=== PATIENT | female | born 1995 | race Caucasian/White ===

== ENCOUNTER 2020-02-05 15:32 | Emergency (ER) | payer MEDICAID ==
[2020-02-05 17:00] LABS: Absolute Lymphocytes (CBC) 1.6 K/uL (0.7-4.9); Basophils % 0.6 % (0-1.3); Hematocrit 37.8 % (36.0-45.0); Lymphocytes % 27.1 % (15.3-44.8); MPV 10.1 fL (7.6-11.3); RBC Red Blood Cell Count 4.71 M/uL (3.86-4.86)
[2020-02-05 17:15] LABS: Urine Blood TRACE (NEG); Urine Glucose NEGATIVE (NEG); Urine Protein NEGATIVE (NEG); Urine Specific Gravity 1.015 (1.005-1.030); Urine pH 6.5 (5.0-7.0)
[2020-02-05 17:22] LABS: BUN Blood Urea Nitrogen 10 mg/dL (7-18); Bicarbonate 29 mmol/L (21-32); Glucose Level 109 mg/dL (74-106); Potassium 3.5 mmol/L (3.5-5.1); Sodium Level 140 mmol/L (136-145)
--- NOTE | 2020-02-05 17:25 | RAD REPORT ---
EXAM DESCRIPTION: US - Transvaginal OB - 02/05/2020 5:05 pm CLINICAL HISTORY: VAGINAL BLEEDING COMPARISON: No comparisons FINDINGS: Uterus is retroflexed. Endometrium is 4 mm in thickness with no mass, polyp are focal abno rmality seen. No myometrial mass. Uterus is 6.8 x 4.0 x 5.0 cm. No blood or fluid in the cul de sac. Both ovaries are identified and normal size. Normal blood flow in the stroma. No ovarian or adnexal a bnormalities. IMPRESSION: Unremarkable pelvic ultrasound.
[2020-02-05 17:31] LABS: HCG, Quantitative < 1 mIU/mL (1-3)
--- NOTE | 2020-02-05 17:40 | ER ---
Nurse's Notes [facility] Name: Gloria Modi Age: 24 yrs Sex: Female : 1995 Arrival Date: 02/05/2020 Time: 15:35 Bed 16 Private MD: Diagnosis: Abnormal uterine and vaginal bleeding, unspecified Presentation: 02/04 15:42 Chief complaint: Patient states: vaginal bleeding that started out as spotting is now ss heavier. Pt was told by her OB to come to ER as she has had a tubal ligation in the past. Pt believes she is approximately 6 weeks . Coronavirus screen: Client denies travel out of the [place] in the last 14 days. Ebola Screen: Patient denies exposure to infectious person. Patient denies travel to an Ebola-affected area in the 21 days before illness onset. Initial Sepsis Screen: Does the patient meet any 2 criteria? No. Patient's initial sepsis screen is negative. Does the patient have a suspected source of infection? No. Patient's initial sepsis screen is negative. Risk Assessment: Do you want to hurt yourself or someone else? Patient reports no desire to harm self or others. Onset of symptoms was February 03, 2020. 15:42 Method Of Arrival: Ambulatory ss 15:42 Acuity: NICO 3 ss GAS CHARGER: 16:10 7, Full Term 2, 4, Living 2, LMP 01/01/2020, Verified, EDC cp 10/07/2020, Gestational age from LMP: 5 weeks 0 days 16:25 LMP 12/25/2019 ca1 Historical: - Allergies: 15:45 Tylenol # 3; ss - Home Meds: 15:45 Carbamazepine Oral [Active]; hydroxyzine HCl 25 mg Oral tab [Active]; Fluoxetine Oral ss [Active]; - PMHx: 15:45 PTSD; seperation anxiety; Bipolar disorder; ss - Immunization history:: Adult Immunizations up to date. - Social history:: Smoking status: Patient reports the use of cigarette tobacco products, smokes one-half pack cigarettes per day. Screenin:50 Abuse screen: Denies threats or abuse. Denies injuries from another. Nutritional ca1 screening: No deficits noted. Tuberculosis screening: No symptoms or risk factors identified. Fall Risk IV access (20 points). Assessment: 15:50 General: Appears in no apparent distress. comfortable, Behavior is calm, cooperative, ca1 appropriate for age. Pain: Complains of pain in suprapubic area, right lower quadrant and left lower quadrant Pain radiates to low back area Pain currently is 3 out of 10 on a pain scale. Pain began 1 day ago. Is intermittent. Neuro: Level of Consciousness is awake, alert, obeys commands, Oriented to person, place, time, situation. Cardiovascular: Heart tones S1 S2 present Capillary refill < 3 seconds Patient's skin is warm and dry. Respiratory: Airway is patent Respiratory effort is even, unlabored, Respiratory pattern is regular, symmetrical, Breath sounds are clear bilaterally. GI: Abdomen is flat, non-distended, Bowel sounds present X 4 quads. Abd is soft and non tender X 4 quads. : Urine is clear, Reports cramping, lower quadrant(s) lower back vaginal bleeding that is bright red, light flow. EENT: No signs and/or symptoms were reported regarding the EENT system. Derm: Skin is intact, is healthy with good turgor, Skin is pink, warm \T\ dry. Musculoskeletal: Circulation, motion, and sensation intact. Capillary refill < 3 seconds. 17:19 Reassessment: Patient appears in no apparent distress at this time. Patient and/or ca1 family updated on plan of care and expected duration. Pain level reassessed. Patient is alert, oriented x 3, equal unlabored respirations, skin warm/dry/pink. 17:55 Reassessment: Patient appears in no apparent distress at this time. Patient is alert, ca1 oriented x 3, equal unlabored respirations, skin warm/dry/pink. Vital Signs: 15:54 BP 124 / 78; Pulse 81; Resp 16; Temp 97.6(TE); Pulse Ox 100% on R/A; Weight 44.45 kg; ss Height 5 ft. 0 in. (152.40 cm); Pain 0/10; 17:19 BP 114 / 69; Pulse 80; Resp 16 S; Pulse Ox 100% on R/A; ca1 17:55 BP 101 / 63; Pulse 76; Resp 16 S; Pulse Ox 100% on R/A; ca1 15:54 Body Mass Index 19.14 (44.45 kg, 152.40 cm) ss ED Course: 15:35 Patient arrived in ED. ds1 15:43 Triage completed. ss 15:45 Arm band placed on right wrist. ss 15:46 Alden Snider PA is PHCP. cp 15:46 Lyle Figueroa MD is Attending Physician. cp 15:48 tSormy Parmar, RN is Primary Nurse. ca1 15:50 Patient has correct armband on for positive identification. Placed in gown. Bed in low ca1 position. Call light in reach. Side rails up X 1. Pulse ox on. NIBP on. Warm blanket given. 16:19 Initial lab(s) drawn, by me, sent to lab. Inserted saline lock: 20 gauge in left ca1 antecubital area, using aseptic technique. Blood collected. 16:19 No provider procedures requiring assistance completed. ca1 17:05 US Transvaginal Ob In Process Unspecified. EDMS 17:55 IV discontinued, intact, bleeding controlled, No redness/swelling at site. Pressure ca1 dressing applied. Administered Medications: No medications were administered Outcome: 17:39 Discharge ordered by MD. cp 17:55 Discharged to home ambulatory. ca1 17:55 Condition: stable 17:55 Discharge instructions given to patient, Instructed on discharge instructions, follow up and referral plans. Demonstrated understanding of instructions, follow-up care. 17:56 Patient left the ED. ca1 Signatures: Dispatcher [employer] EDKY Kailey Shah ds1 Brigette Medina, RN RN Alden Snider PA PA cp Stormy Parmar, RN RN ca1
--- NOTE | 2020-02-05 17:40 | EDPHYS ---
Physician Documentation [facility] Name: Gloria Modi Age: 24 yrs Sex: Female : 1995 Arrival Date: 02/05/2020 Time: 15:35 Bed 16 Private MD: ED Physician Lyle Figueroa HPI: 02/04 16:00 This 24 yrs old Female presents to ER via Ambulatory with complaints of cp Vaginal Bleeding, + Preg <12wks. 16:00 The patient presents to the emergency department with vaginal bleeding, that is light, cp reports using 1 pads or tampons per day, positive test at home. The estimated gestational age is 6 weeks. Associated signs and symptoms: Pertinent negatives: abdominal pain, diarrhea, dysuria, fever, ruptured membranes, vomiting. 16:00 course: care: at a clinic, Leakage of Fluid: none appreciated. cp RN INTEGRITY: 16:10 7, Full Term 2, 4, Living 2, LMP 01/01/2020, Verified, EDC cp 10/07/2020, Gestational age from LMP: 5 weeks 0 days 16:25 LMP 12/25/2019 ca1 Historical: - Allergies: 15:45 Tylenol # 3; ss - Home Meds: 15:45 Carbamazepine Oral [Active]; hydroxyzine HCl 25 mg Oral tab [Active]; Fluoxetine Oral ss [Active]; - PMHx: 15:45 PTSD; seperation anxiety; Bipolar disorder; ss - Immunization history:: Adult Immunizations up to date. - Social history:: Smoking status: Patient reports the use of cigarette tobacco products, smokes one-half pack cigarettes per day. ROS: 16:05 Constitutional: Negative for fever. cp 16:05 Abdomen/GI: Negative for abdominal pain, nausea, vomiting, and diarrhea. cp 16:05 : Positive for vaginal bleeding, Negative for urinary symptoms, pelvic pain. 16:05 All other systems are negative. Exam: 16:12 Constitutional: The patient appears in no acute distress, alert, awake, comfortable, cp well developed, well nourished. 16:12 Head/Face: Normocephalic, atraumatic. cp 16:12 Eyes: Periorbital structures: appear normal, Conjunctiva: normal, no exudate, no injection, Sclera: no appreciated abnormality, Lids and lashes: appear normal, bilaterally. 16:12 ENT: External ear(s): are unremarkable, Nose: is normal, Posterior pharynx: Airway: no evidence of obstruction, patent. 16:12 Chest/axilla: Inspection: normal, Palpation: is normal, no crepitus, no tenderness. 16:12 Cardiovascular: Rate: normal, Rhythm: regular. 16:12 Respiratory: the patient does not display signs of respiratory distress, Respirations: normal, no use of accessory muscles, no retractions, labored breathing, is not present. 16:12 Abdomen/GI: Inspection: abdomen appears normal, Bowel sounds: active, all quadrants, Palpation: abdomen is soft and non-tender, in all quadrants. 16:12 Back: CVA tenderness, is absent. Vital Signs: 15:54 BP 124 / 78; Pulse 81; Resp 16; Temp 97.6(TE); Pulse Ox 100% on R/A; Weight 44.45 kg; ss Height 5 ft. 0 in. (152.40 cm); Pain 0/10; 17:19 BP 114 / 69; Pulse 80; Resp 16 S; Pulse Ox 100% on R/A; ca1 17:55 BP 101 / 63; Pulse 76; Resp 16 S; Pulse Ox 100% on R/A; ca1 15:54 Body Mass Index 19.14 (44.45 kg, 152.40 cm) ss MDM: 15:47 Patient medically screened. cp 16:00 Differential diagnosis: STD, threatened Ab, inevitable Ab, complete Ab, ectopic cp . 17:38 Data reviewed: vital signs, nurses notes, lab test result(s), radiologic studies, cp ultrasound. 17:38 Counseling: I had a detailed discussion with the patient and/or guardian regarding: the cp historical points, exam findings, and any diagnostic results supporting the discharge/admit diagnosis, lab results, radiology results, the need for outpatient follow up, an OB/Gyne specialist, to return to the emergency department if symptoms worsen or persist or if there are any questions or concerns that arise at home. ED course: VSS. Labs reviewed and US negative for IUP. Discussed findings with patient who reports multiple positive urine and a positive blood test for at clinic. Will discharge to home for continued monitoring. 02/04 15:53 Order name: Quantitative Hcg; Complete Time: 17:34 cp 02/04 17:34 Interpretation: Reviewed. 02/04 15:53 Order name: Abo/rh Typing; Complete Time: 17:30 02/04 17:30 Interpretation: Reviewed. 02/04 15:53 Order name: Basic Metabolic Panel; Complete Time: 17:34 cp 02/04 17:34 Interpretation: Normal except: GLUC 109; GFR 85. 02/04 15:53 Order name: CBC with Diff; Complete Time: 17:25 02/04 17:25 Interpretation: Normal except: MCH 26.0; RDW 15.4. 02/04 16:26 Order name: Urine Dipstick--Ancillary (enter results); Complete Time: 17:25 eb 02/04 17:34 Interpretation: Normal except: UBLD TRACE; UESTR TRACE. 02/04 16:26 Order name: Urine --Ancillary (enter results); Complete Time: 17:25 eb 02/04 15:53 Order name: Urine Test (obtain specimen); Complete Time: 16:26 02/04 15:53 Order name: IV Saline Lock; Complete Time: 16:26 02/04 15:53 Order name: Labs collected and sent; Complete Time: 16:26 02/04 15:53 Order name: NPO; Complete Time: 16:26 02/04 15:53 Order name: Urine Dipstick-Ancillary (obtain specimen); Complete Time: 16:26 02/04 15:53 Order name: US Transvaginal Ob; Complete Time: 17:30 02/04 17:39 Order name: Labs - recollect needed: ABO confirmation-small purple; Complete Time: 17:53sv Administered Medications: No medications were administered Disposition: 18:00 Chart complete. Disposition: 02/05/20 17:39 Discharged to Home. Impression: Abnormal uterine and vaginal bleeding, unspecified. - Condition is Stable. - Discharge Instructions: Abnormal Uterine Bleeding. - Medication Reconciliation Form, Thank You Letter, Antibiotic Education, Prescription Opioid Use form. - Follow up: Private Physician; When: 2 - 3 days; Reason: Recheck today's complaints. - Problem is new. - Symptoms have improved. Addendum: 02/07/2020 06:41 Co-signature as Attending Physician, Lyle Figueroa MD I agree with the assessment and k dr plan of care. Signatures: Dispatcher [employer] Maritza Betancourt RN RN sv Lyle Figueroa MD MD kdr Smirch, Shelby, RN RN Alden Spencer PA PA cp Acob, Cheryl RN RN ca1 Corrections: (The following items were deleted from the chart) 02/04 17:56 17:39 02/05/2020 17:39 Discharged to Home. Impression: Abnormal uterine and vaginal ca1 bleeding, unspecified. Condition is Stable. Forms are Medication Reconciliation Form, Thank You Letter, Antibiotic Education, Prescription Opioid Use. Follow up: Private Physician; When: 2 - 3 days; Reason: Recheck today's complaints. Problem is new. Symptoms have improved. cp
[2020-02-05 18:35] VITALS: TEMP 97.6; O2SAT 100
[2020-02-05 18:43] VITALS: BP 101/63
== END 2020-02-05 17:56 | disposition home or self-care (01) ==
LOC: ER 15:32
DX: N93.9 Abnormal uterine and vaginal bleeding, unspecified (principal); F31.9 Bipolar disorder, unspecified; F17.210 Nicotine dependence, cigarettes, uncomplicated; Z88.5 Allergy status to narcotic agent
CPT/HCPCS: 36415; 76817; 80048; 81003; 81025; 84702; 85025; 86900; 86901; 99284

== ENCOUNTER 2020-03-01 02:11 | Emergency (ER) | payer MEDICAID ==
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
--- OUTSIDE RECORDS SUMMARY | 2020-03-01 02:14 | XMS REPORT | Clinical Summary ---
:1995 Author Organization [facility] Address [address] [place] [id number] Care Team Providers Name Role Phone Asked, No Pcp Primary Care Provider Unavailable Allergies No Known Active Allergies Medications Not on file Active Problems Not on file Social History Tobacco Use Types Packs/Day Years Used Date Former Smoker Alcohol Use Drinks/Week oz/Week Comments No Sex Assigned at Date Recorded Not on file Last Filed Vital Signs Not on file Plan of Treatment Health Maintenance Due Date Last Done Comments CHLAMYDIA SCREENING 2013 CERVICAL CANCER SCREENING 2018 INFLUENZA VACCINE 11/14/2019 Results Not on fileafter 03/01/2019 Insurance Payer Benefit Plan / Subscriber ID Effective Dates Phone Addre ss Type Group [id number] [facility] [id number] 2016-Present HMO CHOICE [facility] MEDICAID MEDICAID [id number] 2016-Present Med icaid Advance Directives For more information, please contact: [phone] Type Date Recorded Patient Base Ply Hand Explanati on Advance Directives, Living Will and 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
--- OUTSIDE RECORDS SUMMARY | 2020-03-01 02:17 | XMS REPORT | Continuity of Care Document ---
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 [#/volume] 0.1 K/uL 0.0-0.03 H in Blood (test code = 92368-0) lymphocyte% (test code = 30.9 % 10.0-50.0 lymphocyte%) mono % (test code = mono %) 7.2 % 3.6-12.0 eos % (test code = eos %) 0.3 % 0.0-5.4 Basophils/100 leukocytes in 0.2 % 0.1-1.2 Unspecified specimen (test code = 81455-9) Neutrophils.band form [#/volume] 5.77 K/uL 1.56-6.13 in Blood (test code = 16037-2) Lymphocytes [#/volume] in 2.9 K/uL 1.18-3.74 Unspecified specimen by Automated count (test code = 91386-1) mono # (test code = mono #) 0.68 K/uL 0.24-0.86 eos # (test code = eos #) 0.03 K/uL 0.04-0.36 L basophil # (test code = basophil 0.02 K/uL 0.01-0.08 #) NRBC% (test code = NRBC%) 0 /100 WBC 0-0.2 NRBC# (test code = NRBC#) 0 K/uL [facility] Ab [Presence] in Serum by [id number] 04:53:00 Test Item Value Reference Range Interpretation Comments Reagin Ab [Presence] in Serum by nonreactive nonreactive RPR (test code = 73051-7) [facility] [Presence] in Serum 2019-04-30 04:53:00 Test Item Value Reference Range Interpretation Comments .hepatitis B surface antigen (test negative negative code = .hepatitis B surface antigen) [facility] W Auto Differential panel - [id number] 04:53:00 Test Item Value Reference Range Interpretation Comments white blood count (test code = 9.5 K/uL 4.0-11.5 white blood count) red blood count (test code = red 3.83 M/uL 3.80-5.20 blood count) hemoglobin (test code = 9.7 g/dL 10.5-15.7 L hemoglobin) hematocrit (test code = 31.4 % 34.0-50.0 L hematocrit) Erythrocyte mean corpuscular 82.0 fL 86-100 L volume [Entitic volume] (test code = 10242-0) mean corpuscular hemoglobin (test 25.3 pg 26.2-33.4 L code = mean corpuscular hemoglobin) mean corpuscular HGB conc (test 30.9 g/dL 30-34 code = mean corpuscular HGB conc) red cell distribution width (test 13.6 % 12.0-15.5 code = red cell distribution width) platelet count (test code = 262 K/uL 165-450 platelet count) mean platelet volume (test code = 10.3 fL 9.4-12.6 mean platelet volume) Neutrophils.segmented/100 60.8 % 44.4-80.1 leukocytes in Blood (test code = 88273-3) Granulocytes Immature [#/volume] 0.1 K/uL 0.0-0.03 H in Blood (test code = 85785-5) lymphocyte% (test code = 30.9 % 10.0-50.0 lymphocyte%) mono % (test code = mono %) 7.2 % 3.6-12.0 eos % (test code = eos %) 0.3 % 0.0-5.4 Basophils/100 leukocytes in 0.2 % 0.1-1.2 Unspecified specimen (test code = 47505-0) Neutrophils.band form [#/volume] 5.77 K/uL 1.56-6.13 in Blood (test code = 75495-3) Lymphocytes [#/volume] in 2.9 K/uL 1.18-3.74 Unspecified specimen by Automated count (test code = 21437-2) mono # (test code = mono #) 0.68 K/uL 0.24-0.86 eos # (test code = eos #) 0.03 K/uL 0.04-0.36 L basophil # (test code = basophil 0.02 K/uL 0.01-0.08 #) NRBC% (test code = NRBC%) 0 /100 WBC 0-0.2 NRBC# (test code = NRBC#) 0 K/uL [facility] Serum by [id number] 04:53:00 Test Item Value Reference Range Interpretation Comments Reagin Ab [Presence] in Serum by nonreactive nonreactive RPR (test code = 45116-3) [facility] surface Ag [Presence] in Serum 2019-04-30 04:53:00 Test Item Value Reference Range Interpretation Comments .hepatitis B surface antigen (test negative negative code = .hepatitis B surface antigen) [facility] macro (dipstick) panel - [id number] 10:17:40 Test Item Value Reference Range Interpretation Comments Leukocytes (test code = Leukocytes) Trace Nitrite (test code = Nitrite) negative Urobilinogen (test code = .2 Urobilinogen) Protein (test code = Protein) Trace pH (test code = pH) 6.5 Blood (test code = Blood) Negative Specific [place] (test code = 1.015 Specific [place]) Ketone (test code = Ketone) Negative Bilirubin (test code = Bilirubin) Negative Glucose (test code = Glucose) Negative Appearance (test code = Appearance) Clear Color (test code = Color) Yellow [facility] (dipstick) panel - [id number] 10:17:40 Test Item Value Reference Range Interpretation Comments Leukocytes (test code = Leukocytes) Trace Nitrite (test code = Nitrite) negative Urobilinogen (test code = .2 Urobilinogen) Protein (test code = Protein) Trace pH (test code = pH) 6.5 Blood (test code = Blood) Negative Specific [place] (test code = 1.015 Specific [place]) Ketone (test code = Ketone) Negative Bilirubin (test code = Bilirubin) Negative Glucose (test code = Glucose) Negative Appearance (test code = Appearance) Clear Color (test code = Color) Yellow [facility] (dipstick) panel - [id number] 10:17:40 Test Item Value Reference Range Interpretation Comments Leukocytes (test code = Leukocytes) Trace Nitrite (test code = Nitrite) negative Urobilinogen (test code = .2 Urobilinogen) Protein (test code = Protein) Trace pH (test code = pH) 6.5 Blood (test code = Blood) Negative Specific [place] (test code = 1.015 Specific [place]) Ketone (test code = Ketone) Negative Bilirubin (test code = Bilirubin) Negative Glucose (test code = Glucose) Negative Appearance (test code = Appearance) Clear Color (test code = Color) Yellow [facility] Biophysical profile panel [id number] 10:06:43 Test Item Value Reference Range Interpretation Comments Amniotic Fluid Index (test code = 2 (14.5) Amniotic Fluid Index) Tone (test code = Tone) 2 Breathing (test code = 2 Breathing) Movement (test code = 2 Movement) Non-Stress Test (test code = 2 Non-Stress Test) [facility] Biophysical profile panel [id number] 10:06:43 Test Item Value Reference Range Interpretation Comments Amniotic Fluid Index (test code = 2 (14.5) Amniotic Fluid Index) Tone (test code = Tone) 2 Breathing (test code = 2 Breathing) Movement (test code = 2 Movement) Non-Stress Test (test code = 2 Non-Stress Test) [facility] Biophysical profile panel [id number] 10:06:43 Test Item Value Reference Range Interpretation Comments Amniotic Fluid Index (test code = 2 (14.5) Amniotic Fluid Index) Tone (test code = Tone) 2 Breathing (test code = 2 Breathing) Movement (test code = 2 Movement) Non-Stress Test (test code = 2 Non-Stress Test) [facility] - [id number] 11:37:00 Test Item Value Reference Range Interpretation Comments Leukocytes (test code = Leukocytes) Large Nitrite (test code = Nitrite) negative Urobilinogen (test code = 1 Urobilinogen) Protein (test code = Protein) Trace pH (test code = pH) 8.5 Blood (test code = Blood) Negative Specific [place] (test code = 1.020 Specific [place]) Ketone (test code = Ketone) Negative Bilirubin (test code = Bilirubin) Negative Glucose (test code = Glucose) Negative Appearance (test code = Appearance) Clear Color (test code = Color) Yellow [facility] (dipstick) panel - [id number] 11:37:00 Test Item Value Reference Range Interpretation Comments Leukocytes (test code = Leukocytes) Large Nitrite (test code = Nitrite) negative Urobilinogen (test code = 1 Urobilinogen) Protein (test code = Protein) Trace pH (test code = pH) 8.5 Blood (test code = Blood) Negative Specific [place] (test code = 1.020 Specific [place]) Ketone (test code = Ketone) Negative Bilirubin (test code = Bilirubin) Negative Glucose (test code = Glucose) Negative Appearance (test code = Appearance) Clear Color (test code = Color) Yellow [facility]dipstick) panel - [id number] 11:37:00 Test Item Value Reference Range Interpretation Comments Leukocytes (test code = Leukocytes) Large Nitrite (test code = Nitrite) negative Urobilinogen (test code = 1 Urobilinogen) Protein (test code = Protein) Trace pH (test code = pH) 8.5 Blood (test code = Blood) Negative Specific [place] (test code = 1.020 Specific [place]) Ketone (test code = Ketone) Negative Bilirubin (test code = Bilirubin) Negative Glucose (test code = Glucose) Negative Appearance (test code = Appearance) Clear Color (test code = Color) Yellow [facility] (dipstick) panel - [id number] 11:37:00 Test Item Value Reference Range Interpretation Comments Leukocytes (test code = Leukocytes) Large Nitrite (test code = Nitrite) negative Urobilinogen (test code = 1 Urobilinogen) Protein (test code = Protein) Trace pH (test code = pH) 8.5 Blood (test code = Blood) Negative Specific [place] (test code = 1.020 Specific [place]) Ketone (test code = Ketone) Negative Bilirubin (test code = Bilirubin) Negative Glucose (test code = Glucose) Negative Appearance (test code = Appearance) Clear Color (test code = Color) Yellow [facility] (dipstick) panel - [id number] 11:37:00 Test Item Value Reference Range Interpretation Comments Leukocytes (test code = Leukocytes) Large Nitrite (test code = Nitrite) negative Urobilinogen (test code = 1 Urobilinogen) Protein (test code = Protein) Trace pH (test code = pH) 8.5 Blood (test code = Blood) Negative Specific [place] (test code = 1.020 Specific [place]) Ketone (test code = Ketone) Negative Bilirubin (test code = Bilirubin) Negative Glucose (test code = Glucose) Negative Appearance (test code = Appearance) Clear Color (test code = Color) Yellow [facility] Biophysical profile panel [id number] 11:06:57 Test Item Value Reference Range Interpretation Comments Amniotic Fluid Index (test code = 2 (14.6) Amniotic Fluid Index) Tone (test code = Tone) 2 Breathing (test code = 2 Breathing) Movement (test code = 2 Movement) Non-Stress Test (test code = 2 Non-Stress Test) [facility] Biophysical profile panel [id number] 11:06:57 Test Item Value Reference Range Interpretation Comments Amniotic Fluid Index (test code = 2 (14.6) Amniotic Fluid Index) Tone (test code = Tone) 2 Breathing (test code = 2 Breathing) Movement (test code = 2 Movement) Non-Stress Test (test code = 2 Non-Stress Test) [facility] Biophysical profile panel [id number] 11:06:57 Test Item Value Reference Range Interpretation Comments Amniotic Fluid Index (test code = 2 (14.6) Amniotic Fluid Index) Tone (test code = Tone) 2 Breathing (test code = 2 Breathing) Movement (test code = 2 Movement) Non-Stress Test (test code = 2 Non-Stress Test) [facility] panel [id number] 11:06:57 Test Item Value Reference Range Interpretation Comments Amniotic Fluid Index (test code = 2 (14.6) Amniotic Fluid Index) Tone (test code = Tone) 2 Breathing (test code = 2 Breathing) Movement (test code = 2 Movement) Non-Stress Test (test code = 2 Non-Stress Test) [facility] Biophysical profile panel [id number] 11:06:57 Test Item Value Reference Range Interpretation Comments Amniotic Fluid Index (test code = 2 (14.6) Amniotic Fluid Index) Tone (test code = Tone) 2 Breathing (test code = 2 Breathing) Movement (test code = 2 Movement) Non-Stress Test (test code = 2 Non-Stress Test) [facility]dipstick) panel - [id number] 15:44:30 Test Item Value Reference Range Interpretation Comments Leukocytes (test code = Small Leukocytes) Nitrite (test code = Nitrite) negative Urobilinogen (test code = 2 Urobilinogen) Protein (test code = Protein) 30 pH (test code = pH) 8.0 Blood (test code = Blood) Negative Specific [place] (test code = 1.020 Specific [place]) Ketone (test code = Ketone) Negative Bilirubin (test code = Bilirubin) Small Glucose (test code = Glucose) Negative Appearance (test code = Clear Appearance) Color (test code = Color) Dark Yellow [facility]dipstick) panel - [id number] 15:44:30 Test Item Value Reference Range Interpretation Comments Leukocytes (test code = Small Leukocytes) Nitrite (test code = Nitrite) negative Urobilinogen (test code = 2 Urobilinogen) Protein (test code = Protein) 30 pH (test code = pH) 8.0 Blood (test code = Blood) Negative Specific [place] (test code = 1.020 Specific [place]) Ketone (test code = Ketone) Negative Bilirubin (test code = Bilirubin) Small Glucose (test code = Glucose) Negative Appearance (test code = Clear Appearance) Color (test code = Color) Dark Yellow [facility] (dipstick) panel - [id number] 15:44:30 Test Item Value Reference Range Interpretation Comments Leukocytes (test code = Small Leukocytes) Nitrite (test code = Nitrite) negative Urobilinogen (test code = 2 Urobilinogen) Protein (test code = Protein) 30 pH (test code = pH) 8.0 Blood (test code = Blood) Negative Specific [place] (test code = 1.020 Specific [place]) Ketone (test code = Ketone) Negative Bilirubin (test code = Bilirubin) Small Glucose (test code = Glucose) Negative Appearance (test code = Clear Appearance) Color (test code = Color) Dark Yellow [facility] (dipstick) panel - [id number] 15:44:30 Test Item Value Reference Range Interpretation Comments Leukocytes (test code = Small Leukocytes) Nitrite (test code = Nitrite) negative Urobilinogen (test code = 2 Urobilinogen) Protein (test code = Protein) 30 pH (test code = pH) 8.0 Blood (test code = Blood) Negative Specific [place] (test code = 1.020 Specific [place]) Ketone (test code = Ketone) Negative Bilirubin (test code = Bilirubin) Small Glucose (test code = Glucose) Negative Appearance (test code = Clear Appearance) Color (test code = Color) Dark Yellow [facility] (dipstick) panel - [id number] 15:44:30 Test Item Value Reference Range Interpretation Comments Leukocytes (test code = Small Leukocytes) Nitrite (test code = Nitrite) negative Urobilinogen (test code = 2 Urobilinogen) Protein (test code = Protein) 30 pH (test code = pH) 8.0 Blood (test code = Blood) Negative Specific [place] (test code = 1.020 Specific [place]) Ketone (test code = Ketone) Negative Bilirubin (test code = Bilirubin) Small Glucose (test code = Glucose) Negative Appearance (test code = Clear Appearance) Color (test code = Color) Dark Yellow [facility]dipstick) panel - [id number] 15:44:30 Test Item Value Reference Range Interpretation Comments Leukocytes (test code = Small Leukocytes) Nitrite (test code = Nitrite) negative Urobilinogen (test code = 2 Urobilinogen) Protein (test code = Protein) 30 pH (test code = pH) 8.0 Blood (test code = Blood) Negative Specific [place] (test code = 1.020 Specific [place]) Ketone (test code = Ketone) Negative Bilirubin (test code = Bilirubin) Small Glucose (test code = Glucose) Negative Appearance (test code = Clear Appearance) Color (test code = Color) Dark Yellow [facility] Biophysical profile panel [id number] 15:38:02 Test Item Value Reference Range Interpretation Comments Amniotic Fluid Index (test code = 2 (15.5) Amniotic Fluid Index) Tone (test code = Tone) 2 Breathing (test code = 2 Breathing) Movement (test code = 2 Movement) Non-Stress Test (test code = 2 Non-Stress Test) [facility] Biophysical profile panel [id number] 15:38:02 Test Item Value Reference Range Interpretation Comments Amniotic Fluid Index (test code = 2 (15.5) Amniotic Fluid Index) Tone (test code = Tone) 2 Breathing (test code = 2 Breathing) Movement (test code = 2 Movement) Non-Stress Test (test code = 2 Non-Stress Test) [facility] Biophysical profile panel [id number] 15:38:02 Test Item Value Reference Range Interpretation Comments Amniotic Fluid Index (test code = 2 (15.5) Amniotic Fluid Index) Tone (test code = Tone) 2 Breathing (test code = 2 Breathing) Movement (test code = 2 Movement) Non-Stress Test (test code = 2 Non-Stress Test) [facility] Biophysical profile panel [id number] 15:38:02 Test Item Value Reference Range Interpretation Comments Amniotic Fluid Index (test code = 2 (15.5) Amniotic Fluid Index) Tone (test code = Tone) 2 Breathing (test code = 2 Breathing) Movement (test code = 2 Movement) Non-Stress Test (test code = 2 Non-Stress Test) [facility] Biophysical profile panel [id number] 15:38:02 Test Item Value Reference Range Interpretation Comments Amniotic Fluid Index (test code = 2 (15.5) Amniotic Fluid Index) Tone (test code = Tone) 2 Breathing (test code = 2 Breathing) Movement (test code = 2 Movement) Non-Stress Test (test code = 2 Non-Stress Test) [facility] Biophysical profile panel [id number] 15:38:02 Test Item Value Reference Range Interpretation Comments Amniotic Fluid Index (test code = 2 (15.5) Amniotic Fluid Index) Tone (test code = Tone) 2 Breathing (test code = 2 Breathing) Movement (test code = 2 Movement) Non-Stress Test (test code = 2 Non-Stress Test) [facility] Biophysical profile panel [id number] 09:23:00 Test Item Value Reference Range Interpretation Comments Amniotic Fluid Index (test code = 2 (15.4) Amniotic Fluid Index) Tone (test code = Tone) 2 Breathing (test code = 2 Breathing) Movement (test code = 2 Movement) [facility] Biophysical profile panel [id number] 09:23:00 Test Item Value Reference Range Interpretation Comments Amniotic Fluid Index (test code = 2 (15.4) Amniotic Fluid Index) Tone (test code = Tone) 2 Breathing (test code = 2 Breathing) Movement (test code = 2 Movement) [facility] Biophysical profile panel [id number] 09:23:00 Test Item Value Reference Range Interpretation Comments Amniotic Fluid Index (test code = 2 (15.4) Amniotic Fluid Index) Tone (test code = Tone) 2 Breathing (test code = 2 Breathing) Movement (test code = 2 Movement) [facility] Biophysical profile panel [id number] 09:23:00 Test Item Value Reference Range Interpretation Comments Amniotic Fluid Index (test code = 2 (15.4) Amniotic Fluid Index) Tone (test code = Tone) 2 Breathing (test code = 2 Breathing) Movement (test code = 2 Movement) [facility] Biophysical profile panel [id number] 11:41:00 Test Item Value Reference Range Interpretation Comments Amniotic Fluid Index (test code = 2 (13.3) Amniotic Fluid Index) Tone (test code = Tone) 2 Breathing (test code = 2 Breathing) Movement (test code = 2 Movement) [facility] Biophysical profile panel [id number] 11:41:00 Test Item Value Reference Range Interpretation Comments Amniotic Fluid Index (test code = 2 (13.3) Amniotic Fluid Index) Tone (test code = Tone) 2 Breathing (test code = 2 Breathing) Movement (test code = 2 Movement) [facility] Biophysical profile panel [id number] 11:41:00 Test Item Value Reference Range Interpretation Comments Amniotic Fluid Index (test code = 2 (13.3) Amniotic Fluid Index) Tone (test code = Tone) 2 Breathing (test code = 2 Breathing) Movement (test code = 2 Movement) [facility] Biophysical profile panel [id number] 11:41:00 Test Item Value Reference Range Interpretation Comments Amniotic Fluid Index (test code = 2 (13.3) Amniotic Fluid Index) Tone (test code = Tone) 2 Breathing (test code = 2 Breathing) Movement (test code = 2 Movement) [facility] Biophysical [id number] 11:59:00 Test Item Value Reference Range Interpretation Comments Amniotic Fluid Index (test code = 2 (12.2) Amniotic Fluid Index) Tone (test code = Tone) 2 Breathing (test code = 2 Breathing) Movement (test code = 2 Movement) [facility] Biophysical profile panel [id number] 11:59:00 Test Item Value Reference Range Interpretation Comments Amniotic Fluid Index (test code = 2 (12.2) Amniotic Fluid Index) Tone (test code = Tone) 2 Breathing (test code = 2 Breathing) Movement (test code = 2 Movement) [facility] Biophysical profile panel [id number] 11:59:00 Test Item Value Reference Range Interpretation Comments Amniotic Fluid Index (test code = 2 (12.2) Amniotic Fluid Index) Tone (test code = Tone) 2 Breathing (test code = 2 Breathing) Movement (test code = 2 Movement) [facility] Biophysical profile panel [id number] 11:59:00 Test Item Value Reference Range Interpretation Comments Amniotic Fluid Index (test code = 2 (12.2) Amniotic Fluid Index) Tone (test code = Tone) 2 Breathing (test code = 2 Breathing) Movement (test code = 2 Movement) [facility] panel [id number] 11:59:00 Test Item Value Reference Range Interpretation Comments Amniotic Fluid Index (test code = 2 (12.2) Amniotic Fluid Index) Tone (test code = Tone) 2 Breathing (test code = 2 Breathing) Movement (test code = 2 Movement) [facility] Group[facility] identified in Urine by [id number] 10:18:00 Test Item Value Reference Range Interpretation Comments Bacteria identified in no growth after 2 Urine by Culture (test days code = 630-4) [facility] identified in Urine by [id number] 10:18:00 Test Item Value Reference Range Interpretation Comments Bacteria identified in no growth after 2 Urine by Culture (test days code = 630-4) [facility] identified in Urine by [id number] 10:18:00 Test Item Value Reference Range Interpretation Comments Bacteria identified in no growth after 2 Urine by Culture (test days code = 630-4) [facility] identified in Urine by [id number] 10:18:00 Test Item Value Reference Range Interpretation Comments Bacteria identified in no growth after 2 Urine by Culture (test days code = 630-4) [facility] GroupGlucose [Mass/volume] in Serum or Plasma --1 hour post dose [id number] 12:27:00 Test Item Value Reference Range Interpretation Comments Results (test code = Results) 152-Fail [facility] GroupGlucose [Mass/volume] in Serum or Plasma --1 hour post dose [id number] 12:27:00 Test Item Value Reference Range Interpretation Comments Results (test code = Results) 152-Fail [facility] GroupGlucose [Mass/volume] in Serum or Plasma --1 hour post dose [id number] 12:27:00 Test Item Value Reference Range Interpretation Comments Results (test code = Results) 152-Fail [facility] GroupGlucose [Mass/volume] in Serum or Plasma --1 hour post dose [id number] 12:27:00 Test Item Value Reference Range Interpretation Comments Results (test code = Results) 152-Fail [facility] GroupGlucose [Mass/volume] in Serum or Plasma --1 hour post dose [id number] 12:27:00 Test Item Value Reference Range Interpretation Comments Results (test code = Results) 152-[facility] W Auto Differential panel - [id number] 11:08:00 Test Item Value Reference Range Interpretation Comments white blood count (test code = 14.1 K/uL 4.0-11.5 H white blood count) red blood count (test code = red 4.04 M/uL 3.80-5.20 blood count) hemoglobin (test code = 11.1 g/dL 10.5-15.7 hemoglobin) hematocrit (test code = 35.1 % 34.0-50.0 hematocrit) Erythrocyte mean corpuscular 86.9 fL 86-100 volume [Entitic volume] (test code = 90945-2) mean corpuscular hemoglobin (test 27.5 pg 26.2-33.4 code = mean corpuscular hemoglobin) mean corpuscular HGB conc (test 31.6 g/dL 30-34 code = mean corpuscular HGB conc) red cell distribution width (test 13.6 % 12.0-15.5 code = red cell distribution width) platelet count (test code = 256 K/uL 165-450 platelet count) mean platelet volume (test code = 10.2 fL 9.4-12.6 mean platelet volume) Neutrophils.segmented/100 84.5 % 44.4-80.1 H leukocytes in Blood (test code = 55082-8) Granulocytes Immature [#/volume] 0.1 K/uL 0.0-0.03 H in Blood (test code = 64104-7) lymphocyte% (test code = 10.7 % 10.0-50.0 lymphocyte%) mono % (test code = mono %) 4.0 % 3.6-12.0 eos % (test code = eos %) 0.1 % 0.0-5.4 Basophils/100 leukocytes in 0.1 % 0.1-1.2 Unspecified specimen (test code = 09560-9) Neutrophils.band form [#/volume] 11.91 K/uL 1.56-6.13 H in Blood (test code = 26509-9) Lymphocytes [#/volume] in 1.5 K/uL 1.18-3.74 Unspecified specimen by Automated count (test code = 61349-5) mono # (test code = mono #) 0.56 K/uL 0.24-0.86 eos # (test code = eos #) 0.01 K/uL 0.04-0.36 L basophil # (test code = basophil 0.02 K/uL 0.01-0.08 #) NRBC% (test code = NRBC%) 0 /100 WBC 0-0.2 NRBC# (test code = NRBC#) 0 K/uL [facility], [id number] 11:08:00 NeutrophilsBandLymphocyteMonocytePlatelet EstimateMataUMMC Holmes CountyBlood group antibody screen [Presence] in Serum or [id number] 11:08:00 Test Item Value Reference Range Interpretation Comments Blood group antibody screen negative [Presence] in Serum or Plasma (test code = 890-4) [facility] Differential panel - [id number] 11:08:00 Test Item Value Reference Range Interpretation Comments white blood count (test code = 14.1 K/uL 4.0-11.5 H white blood count) red blood count (test code = red 4.04 M/uL 3.80-5.20 blood count) hemoglobin (test code = 11.1 g/dL 10.5-15.7 hemoglobin) hematocrit (test code = 35.1 % 34.0-50.0 hematocrit) Erythrocyte mean corpuscular 86.9 fL 86-100 volume [Entitic volume] (test code = 60909-5) mean corpuscular hemoglobin (test 27.5 pg 26.2-33.4 code = mean corpuscular hemoglobin) mean corpuscular HGB conc (test 31.6 g/dL 30-34 code = mean corpuscular HGB conc) red cell distribution width (test 13.6 % 12.0-15.5 code = red cell distribution width) platelet count (test code = 256 K/uL 165-450 platelet count) mean platelet volume (test code = 10.2 fL 9.4-12.6 mean platelet volume) Neutrophils.segmented/100 84.5 % 44.4-80.1 H leukocytes in Blood (test code = 87452-9) Granulocytes Immature [#/volume] 0.1 K/uL 0.0-0.03 H in Blood (test code = 29708-7) lymphocyte% (test code = 10.7 % 10.0-50.0 lymphocyte%) mono % (test code = mono %) 4.0 % 3.6-12.0 eos % (test code = eos %) 0.1 % 0.0-5.4 Basophils/100 leukocytes in 0.1 % 0.1-1.2 Unspecified specimen (test code = 96704-9) Neutrophils.band form [#/volume] 11.91 K/uL 1.56-6.13 H in Blood (test code = 18116-9) Lymphocytes [#/volume] in 1.5 K/uL 1.18-3.74 Unspecified specimen by Automated count (test code = 31444-8) mono # (test code = mono #) 0.56 K/uL 0.24-0.86 eos # (test code = eos #) 0.01 K/uL 0.04-0.36 L basophil # (test code = basophil 0.02 K/uL 0.01-0.08 #) NRBC% (test code = NRBC%) 0 /100 WBC 0-0.2 NRBC# (test code = NRBC#) 0 K/uL [facility]different[facility], [id number] 11:08:00 NeutrophilsBandLymphocyteMonocytePlatelet EstimateMataUMMC Holmes CountyBlood group antibody screen [Presence] in Serum or [id number] 11:08:00 Test Item Value Reference Range Interpretation Comments Blood group antibody screen negative [Presence] in Serum or Plasma (test code = 890-4) [facility] GroupHIV [facility]+2 Ab [Presence] in [id number] 11:08:00HIV P24 AgHIV-1/2 AbMaRichland Hospital GroupReagin Ab [Presence] in Serum by RPR 2019-03-09 11:08:00 Test Item Value Reference Range Interpretation Comments Reagin Ab [Presence] in Serum by nonreactive nonreactive RPR (test code = 40906-7) [facility] W Auto Differential panel - [id number] 11:08:00 Test Item Value Reference Range Interpretation Comments white blood count (test code = 14.1 K/uL 4.0-11.5 H white blood count) red blood count (test code = red 4.04 M/uL 3.80-5.20 blood count) hemoglobin (test code = 11.1 g/dL 10.5-15.7 hemoglobin) hematocrit (test code = 35.1 % 34.0-50.0 hematocrit) Erythrocyte mean corpuscular 86.9 fL 86-100 volume [Entitic volume] (test code = 29568-4) mean corpuscular hemoglobin (test 27.5 pg 26.2-33.4 code = mean corpuscular hemoglobin) mean corpuscular HGB conc (test 31.6 g/dL 30-34 code = mean corpuscular HGB conc) red cell distribution width (test 13.6 % 12.0-15.5 code = red cell distribution width) platelet count (test code = 256 K/uL 165-450 platelet count) mean platelet volume (test code = 10.2 fL 9.4-12.6 mean platelet volume) Neutrophils.segmented/100 84.5 % 44.4-80.1 H leukocytes in Blood (test code = 47496-5) Granulocytes Immature [#/volume] 0.1 K/uL 0.0-0.03 H in Blood (test code = 13220-1) lymphocyte% (test code = 10.7 % 10.0-50.0 lymphocyte%) mono % (test code = mono %) 4.0 % 3.6-12.0 eos % (test code = eos %) 0.1 % 0.0-5.4 Basophils/100 leukocytes in 0.1 % 0.1-1.2 Unspecified specimen (test code = 36177-6) Neutrophils.band form [#/volume] 11.91 K/uL 1.56-6.13 H in Blood (test code = 50825-2) Lymphocytes [#/volume] in 1.5 K/uL 1.18-3.74 Unspecified specimen by Automated count (test code = 06248-4) mono # (test code = mono #) 0.56 K/uL 0.24-0.86 eos # (test code = eos #) 0.01 K/uL 0.04-0.36 L basophil # (test code = basophil 0.02 K/uL 0.01-0.08 #) NRBC% (test code = NRBC%) 0 /100 WBC 0-0.2 NRBC# (test code = NRBC#) 0 K/uL [facility]different[facility], [id number] 11:08:00 NeutrophilsBandLymphocyteMonocytePlatelet EstimateJasper General HospitalBlood group antibody screen [Presence] in Serum or [id number] 11:08:00 Test Item Value Reference Range Interpretation Comments Blood group antibody screen negative [Presence] in Serum or Plasma (test code = 890-4) [facility] HospitalHIV 1+2 Ab [Presence] in [id number] 11:08:00HIV P24 AgHIV-1/2 AbJasper General HospitalReagin Ab [Presence] in Serum by RPR 2019-03-09 11:08:00 Test Item Value Reference Range Interpretation Comments Reagin Ab [Presence] in Serum by nonreactive nonreactive RPR (test code = 76603-3) [facility] Auto Differential panel - [id number] 11:08:00 Test Item Value Reference Range Interpretation Comments white blood count (test code = 14.1 K/uL 4.0-11.5 H white blood count) red blood count (test code = red 4.04 M/uL 3.80-5.20 blood count) hemoglobin (test code = 11.1 g/dL 10.5-15.7 hemoglobin) hematocrit (test code = 35.1 % 34.0-50.0 hematocrit) Erythrocyte mean corpuscular 86.9 fL 86-100 volume [Entitic volume] (test code = 72905-5) mean corpuscular hemoglobin (test 27.5 pg 26.2-33.4 code = mean corpuscular hemoglobin) mean corpuscular HGB conc (test 31.6 g/dL 30-34 code = mean corpuscular HGB conc) red cell distribution width (test 13.6 % 12.0-15.5 code = red cell distribution width) platelet count (test code = 256 K/uL 165-450 platelet count) mean platelet volume (test code = 10.2 fL 9.4-12.6 mean platelet volume) Neutrophils.segmented/100 84.5 % 44.4-80.1 H leukocytes in Blood (test code = 30035-7) Granulocytes Immature [#/volume] 0.1 K/uL 0.0-0.03 H in Blood (test code = 07811-8) lymphocyte% (test code = 10.7 % 10.0-50.0 lymphocyte%) mono % (test code = mono %) 4.0 % 3.6-12.0 eos % (test code = eos %) 0.1 % 0.0-5.4 Basophils/100 leukocytes in 0.1 % 0.1-1.2 Unspecified specimen (test code = 45351-8) Neutrophils.band form [#/volume] 11.91 K/uL 1.56-6.13 H in Blood (test code = 37225-9) Lymphocytes [#/volume] in 1.5 K/uL 1.18-3.74 Unspecified specimen by Automated count (test code = 94038-9) mono # (test code = mono #) 0.56 K/uL 0.24-0.86 eos # (test code = eos #) 0.01 K/uL 0.04-0.36 L basophil # (test code = basophil 0.02 K/uL 0.01-0.08 #) NRBC% (test code = NRBC%) 0 /100 WBC 0-0.2 NRBC# (test code = NRBC#) 0 K/uL [facility] Groupdifferential panel, [id number] 11:08:00 NeutrophilsBandLymphocyteMonocytePlatelet EstimateMatagorda Medical GroupBlood group antibody screen [Presence] in Serum or [id number] 11:08:00 Test Item Value Reference Range Interpretation Comments Blood group antibody screen negative [Presence] in Serum or Plasma (test code = 890-4) [facility] GroupHIV 1+2 Ab [Presence] in [id number] 11:08:00HIV P24 AgHIV-1/2 [facility] [Presence] in Serum by RPR 2019-03-09 11:08:00 Test Item Value Reference Range Interpretation Comments Reagin Ab [Presence] in Serum by nonreactive nonreactive RPR (test code = 24267-6) [facility] W Auto Differential panel - [id number] 11:08:00 Test Item Value Reference Range Interpretation Comments white blood count (test code = 14.1 K/uL 4.0-11.5 H white blood count) red blood count (test code = red 4.04 M/uL 3.80-5.20 blood count) hemoglobin (test code = 11.1 g/dL 10.5-15.7 hemoglobin) hematocrit (test code = 35.1 % 34.0-50.0 hematocrit) Erythrocyte mean corpuscular 86.9 fL 86-100 volume [Entitic volume] (test code = 02866-4) mean corpuscular hemoglobin (test 27.5 pg 26.2-33.4 code = mean corpuscular hemoglobin) mean corpuscular HGB conc (test 31.6 g/dL 30-34 code = mean corpuscular HGB conc) red cell distribution width (test 13.6 % 12.0-15.5 code = red cell distribution width) platelet count (test code = 256 K/uL 165-450 platelet count) mean platelet volume (test code = 10.2 fL 9.4-12.6 mean platelet volume) Neutrophils.segmented/100 84.5 % 44.4-80.1 H leukocytes in Blood (test code = 91740-0) Granulocytes Immature [#/volume] 0.1 K/uL 0.0-0.03 H in Blood (test code = 09590-2) lymphocyte% (test code = 10.7 % 10.0-50.0 lymphocyte%) mono % (test code = mono %) 4.0 % 3.6-12.0 eos % (test code = eos %) 0.1 % 0.0-5.4 Basophils/100 leukocytes in 0.1 % 0.1-1.2 Unspecified specimen (test code = 89262-2) Neutrophils.band form [#/volume] 11.91 K/uL 1.56-6.13 H in Blood (test code = 03685-4) Lymphocytes [#/volume] in 1.5 K/uL 1.18-3.74 Unspecified specimen by Automated count (test code = 39863-1) mono # (test code = mono #) 0.56 K/uL 0.24-0.86 eos # (test code = eos #) 0.01 K/uL 0.04-0.36 L basophil # (test code = basophil 0.02 K/uL 0.01-0.08 #) NRBC% (test code = NRBC%) 0 /100 WBC 0-0.2 NRBC# (test code = NRBC#) 0 K/uL [facility] Groupdifferential panel, [id number] 11:08:00 NeutrophilsBandLymphocyteMonocytePlatelet EstimateMatarda Medical GroupBlood group antibody screen [Presence] in Serum or [id number] 11:08:00 Test Item Value Reference Range Interpretation Comments Blood group antibody screen negative [Presence] in Serum or Plasma (test code = 890-4) [facility] GroupHIV 1+2 Ab [Presence] in [id number] 11:08:00HIV P24 AgHIV-1/2 AbMatagorda Medical GroupReagin Ab [Presence] in Serum by RPR 2019-03-09 11:08:00 Test Item Value Reference Range Interpretation Comments Reagin Ab [Presence] in Serum by nonreactive nonreactive RPR (test code = 39874-4) [facility] GroupChlamydia trachomatis+Neisseria gonorrhoeae DNA [Presence] in Cervix by Probe and target amplification [id number] 10:54:00 ResultsMatagorda Medical GroupMicroscopic observation [Identifier] in Cervix by Cyto stain.thin [id number] 10:54:00ResultsMatagorda Medical GroupChlamydia trachomatis+Neisseria gonorrhoeae DNA [Presence] in Cervix by Probe and target amplification [id number] 10:54:00ResultsMatagorda Medical GroupMicroscopic observation [Identifier] in Cervix by Cyto stain.thin [id number] 10:54:00 ResultsMaRichland Hospital GroupChlamydia trachomatis+Neisseria gonorrhoeae DNA [Presence] in Cervix by Probe and target amplification [id number] 10:54:00 ResultsMataRutland Regional Medical Center GroupMicroscopic observation [Identifier] in Cervix by Cyto stain.thin [id number] 10:54:00ResultsMataRutland Regional Medical Center GroupChlamydia trachomatis+Neisseria gonorrhoeae DNA [Presence] in Cervix by Probe and target amplification [id number] 10:54:00ResultsMataRutland Regional Medical Center GroupMicroscopic observation [Identifier] in Cervix by Cyto stain.thin [id number] 10:54:00 ResultsJasper [facility] HospitalUrinalysis macro (dipstick) panel - Urine 2019-03-04 15:32:00 Test Item Value Reference Range Interpretation Comments Leukocytes (test code = Moderate Leukocytes) Nitrite (test code = negative Nitrite) Urobilinogen (test code = .2 Urobilinogen) Protein (test code = Trace Protein) pH (test code = pH) 7.0 Blood (test code = Blood) Non-Hemolyzed: Trace Specific [place] (test 1.020 code = Specific [place]) Ketone (test code = Trace Ketone) Bilirubin (test code = Negative Bilirubin) Glucose (test code = Negative Glucose) Appearance (test code = Clear Appearance) Color (test code = Color) Yellow [facility] HospitalUrinalysis macro (dipstick) panel - [id number] 15:32:00 Test Item Value Reference Range Interpretation Comments Leukocytes (test code = Moderate Leukocytes) Nitrite (test code = negative Nitrite) Urobilinogen (test code = .2 Urobilinogen) Protein (test code = Trace Protein) pH (test code = pH) 7.0 Blood (test code = Blood) Non-Hemolyzed: Trace Specific [place] (test 1.020 code = Specific [place]) Ketone (test code = Trace Ketone) Bilirubin (test code = Negative Bilirubin) Glucose (test code = Negative Glucose) Appearance (test code = Clear Appearance) Color (test code = Color) Yellow [facility] HospitalUrinalysis macro (dipstick) panel - [id number] 15:32:00 Test Item Value Reference Range Interpretation Comments Leukocytes (test code = Moderate Leukocytes) Nitrite (test code = negative Nitrite) Urobilinogen (test code = .2 Urobilinogen) Protein (test code = Trace Protein) pH (test code = pH) 7.0 Blood (test code = Blood) Non-Hemolyzed: Trace Specific [place] (test 1.020 code = Specific [place]) Ketone (test code = Trace Ketone) Bilirubin (test code = Negative Bilirubin) Glucose (test code = Negative Glucose) Appearance (test code = Clear Appearance) Color (test code = Color) Yellow [facility] HospitalUrinalysis macro (dipstick) panel - [id number] 15:32:00 Test Item Value Reference Range Interpretation Comments Leukocytes (test code = Moderate Leukocytes) Nitrite (test code = negative Nitrite) Urobilinogen (test code = .2 Urobilinogen) Protein (test code = Trace Protein) pH (test code = pH) 7.0 Blood (test code = Blood) Non-Hemolyzed: Trace Specific [place] (test 1.020 code = Specific [place]) Ketone (test code = Trace Ketone) Bilirubin (test code = Negative Bilirubin) Glucose (test code = Negative Glucose) Appearance (test code = Clear Appearance) Color (test code = Color) Yellow [facility] HospitalUrinalysis macro (dipstick) panel - [id number] 15:32:00 Test Item Value Reference Range Interpretation Comments Leukocytes (test code = Moderate Leukocytes) Nitrite (test code = negative Nitrite) Urobilinogen (test code = .2 Urobilinogen) Protein (test code = Trace Protein) pH (test code = pH) 7.0 Blood (test code = Blood) Non-Hemolyzed: Trace Specific [place] (test 1.020 code = Specific [place]) Ketone (test code = Trace Ketone) Bilirubin (test code = Negative Bilirubin) Glucose (test code = Negative Glucose) Appearance (test code = Clear Appearance) Color (test code = Color) Yellow [facility] HospitalUrinalysis macro (dipstick) panel - [id number] 15:32:00 Test Item Value Reference Range Interpretation Comments Leukocytes (test code = Moderate Leukocytes) Nitrite (test code = negative Nitrite) Urobilinogen (test code = .2 Urobilinogen) Protein (test code = Trace Protein) pH (test code = pH) 7.0 Blood (test code = Blood) Non-Hemolyzed: Trace Specific [place] (test 1.020 code = Specific [place]) Ketone (test code = Trace Ketone) Bilirubin (test code = Negative Bilirubin) Glucose (test code = Negative Glucose) Appearance (test code = Clear Appearance) Color (test code = Color) Yellow [facility] W Auto Differential panel - [id number] 12:35:00 Test Item Value Reference Range Interpretation Comments white blood count (test code = 12.4 K/uL 4.0-11.5 white blood count) red blood count (test code = red 3.63 M/uL 3.80-5.20 L blood count) hemoglobin (test code = 10.0 g/dL 10.5-15.7 L hemoglobin) hematocrit (test code = 31.4 % 34.0-50.0 hematocrit) Erythrocyte mean corpuscular 86.5 fL 86-100 volume [Entitic volume] (test code = 63722-8) mean corpuscular hemoglobin (test 27.5 pg 26.2-33.4 code = mean corpuscular hemoglobin) mean corpuscular HGB conc (test 31.8 g/dL 30-34 code = mean corpuscular HGB conc) red cell distribution width (test 13.7 % 12.0-15.5 code = red cell distribution width) platelet count (test code = 254 K/uL 165-450 platelet count) mean platelet volume (test code = 10.2 fL 9.4-12.6 mean platelet volume) Neutrophils.segmented/100 77.7 % 44.4-80.1 leukocytes in Blood (test code = 51693-1) Granulocytes Immature [#/volume] 0.1 K/uL 0.0-0.03 H in Blood (test code = 52105-7) lymphocyte% (test code = 15.7 % 10.0-50.0 lymphocyte%) mono % (test code = mono %) 5.7 % 3.6-12.0 eos % (test code = eos %) 0.3 % 0.0-5.4 Basophils/100 leukocytes in 0.2 % 0.1-1.2 Unspecified specimen (test code = 75636-7) Neutrophils.band form [#/volume] 9.61 K/uL 1.56-6.13 H in Blood (test code = 50046-8) Lymphocytes [#/volume] in 1.9 K/uL 1.18-3.74 Unspecified specimen by Automated count (test code = 37243-7) mono # (test code = mono #) 0.70 K/uL 0.24-0.86 eos # (test code = eos #) 0.04 K/uL 0.04-0.36 basophil # (test code = basophil 0.02 K/uL 0.01-0.08 #) NRBC% (test code = NRBC%) 0 /100 WBC 0-0.2 NRBC# (test code = NRBC#) 0 K/uL [facility] GroupHIV 1+2 Ab [Presence] in [id number] 12:35:00HIV P24 AgHIV-1/2 AbMatagorda Medical GroupABO & Rh group [Type] in [id number] 12:35:00 Test Item Value Reference Range Interpretation Comments Rh [Type] in Blood (test code = 3+ 95297-3) ABO and Rh group panel - Blood O positive (test code = 50560-4) [facility] GroupBlood group antibody screen [Presence] in Serum or Plasma 2019-03-04 12:35:00 Test Item Value Reference Range Interpretation Comments Blood group antibody screen negative [Presence] in Serum or Plasma (test code = 890-4) [facility] GroupBacteria identified in Urine by [id number] 12:35:00Bacteria Ur CultMatanorwalk hospitala Medical GroupReagin Ab [Presence] in Serum by [id number] 12:35:00 Test Item Value Reference Range Interpretation Comments Reagin Ab [Presence] in Serum by nonreactive nonreactive RPR (test code = 10078-6) [facility] Groupantibiotic sensitivity testing, [id number] 12:35:00 Test Item Value Reference Range Interpretation Comments Gentamicin [Susceptibility] by Minimum <2 inhibitory concentration (GUSTAVO) (test code = 267-5) Ampicillin [Susceptibility] by Minimum <8 inhibitory concentration (GUSTAVO) (test code = 28-1) Cefazolin [Susceptibility] by Minimum <2 inhibitory concentration (GUSTAVO) (test code = 76-0) Trimethoprim+Sulfamethoxazole =2/38 [Susceptibility] by Minimum inhibitory concentration (GUSTAVO) (test code = 516-5) Tetracycline [Susceptibility] by >8 Minimum inhibitory concentration (GUSTAVO) (test code = 496-0) Amoxicillin+Clavulanate =8/4 [Susceptibility] by Minimum inhibitory concentration (GUSTAVO) (test code = 20-8) Tobramycin [Susceptibility] by Minimum <4 inhibitory concentration (GUSTAVO) (test code = 508-2) Nitrofurantoin [Susceptibility] by <32 Minimum inhibitory concentration (GUSTAVO) (test code = 363-2) Cefotaxime [Susceptibility] by Minimum <2 inhibitory concentration (GUSTAVO) (test code = 108-1) Cefepime [Susceptibility] by Minimum <8 inhibitory concentration (GUSTAVO) (test code = 6644-9) Levofloxacin [Susceptibility] by <2 Minimum inhibitory concentration (GUSTAVO) (test code = 40508-2) Piperacillin+Tazobactam <16 [Susceptibility] by Minimum inhibitory concentration (GUSTAVO) (test code = 412-7) Ceftazidime [Susceptibility] by Minimum <1 inhibitory concentration (GUSTAVO) (test code = 133-9) Ceftriaxone [Susceptibility] by Minimum <1 inhibitory concentration (GUSTAVO) (test code = 141-2) Ciprofloxacin [Susceptibility] by <1 Minimum inhibitory concentration (GUSTAVO) (test code = 185-9) Imipenem [Susceptibility] by Minimum <1 inhibitory concentration (GUSTAVO) (test code = 279-0) Ampicillin+Sulbactam [Susceptibility] =8/4 by Minimum inhibitory concentration (GUSTAVO) (test code = 32-3) Ertapenem [Susceptibility] by Minimum <0.5 inhibitory concentration (GUSTAVO) (test code = 54589-7) Aztreonam [Susceptibility] by Minimum <4 inhibitory concentration (GUSTAVO) (test code = 44-8) Cefuroxime [Susceptibility] by Minimum <4 inhibitory concentration (GUSTAVO) (test code = 44101-2) [facility] W Auto Differential panel - [id number] 12:35:00 Test Item Value Reference Range Interpretation Comments white blood count (test code = 12.4 K/uL 4.0-11.5 white blood count) red blood count (test code = red 3.63 M/uL 3.80-5.20 L blood count) hemoglobin (test code = 10.0 g/dL 10.5-15.7 L hemoglobin) hematocrit (test code = 31.4 % 34.0-50.0 hematocrit) Erythrocyte mean corpuscular 86.5 fL 86-100 volume [Entitic volume] (test code = 96597-5) mean corpuscular hemoglobin (test 27.5 pg 26.2-33.4 code = mean corpuscular hemoglobin) mean corpuscular HGB conc (test 31.8 g/dL 30-34 code = mean corpuscular HGB conc) red cell distribution width (test 13.7 % 12.0-15.5 code = red cell distribution width) platelet count (test code = 254 K/uL 165-450 platelet count) mean platelet volume (test code = 10.2 fL 9.4-12.6 mean platelet volume) Neutrophils.segmented/100 77.7 % 44.4-80.1 leukocytes in Blood (test code = 36867-8) Granulocytes Immature [#/volume] 0.1 K/uL 0.0-0.03 H in Blood (test code = 66803-6) lymphocyte% (test code = 15.7 % 10.0-50.0 lymphocyte%) mono % (test code = mono %) 5.7 % 3.6-12.0 eos % (test code = eos %) 0.3 % 0.0-5.4 Basophils/100 leukocytes in 0.2 % 0.1-1.2 Unspecified specimen (test code = 15318-0) Neutrophils.band form [#/volume] 9.61 K/uL 1.56-6.13 H in Blood (test code = 14704-0) Lymphocytes [#/volume] in 1.9 K/uL 1.18-3.74 Unspecified specimen by Automated count (test code = 28231-0) mono # (test code = mono #) 0.70 K/uL 0.24-0.86 eos # (test code = eos #) 0.04 K/uL 0.04-0.36 basophil # (test code = basophil 0.02 K/uL 0.01-0.08 #) NRBC% (test code = NRBC%) 0 /100 WBC 0-0.2 NRBC# (test code = NRBC#) 0 K/uL [facility] GroupHIV [facility]+2 Ab [Presence] in [id number] 12:35:00HIV P24 AgHIV-1/2 AbMaRichland Hospital GroupABO & Rh group [Type] in [id number] 12:35:00 Test Item Value Reference Range Interpretation Comments Rh [Type] in Blood (test code = 3+ 28127-0) ABO and Rh group panel - Blood O positive (test code = 20079-4) [facility] [Pres[facility]] in Serum or Plasma 2019-03-04 12:35:00 Test Item Value Reference Range Interpretation Comments Blood group antibody screen negative [Presence] in Serum or Plasma (test code = 890-4) [facility] identified in Urine by [id number] 12:35:00Bacteria Ur CultJasper General HospitalReagin Ab [Presence] in Serum by [id number] 12:35:00 Test Item Value Reference Range Interpretation Comments Reagin Ab [Presence] in Serum by nonreactive nonreactive RPR (test code = 14671-9) [facility], [id number] 12:35:00 Test Item Value Reference Range Interpretation Comments Gentamicin [Susceptibility] by Minimum <2 inhibitory concentration (GUSTAVO) (test code = 267-5) Ampicillin [Susceptibility] by Minimum <8 inhibitory concentration (GUSTAVO) (test code = 28-1) Cefazolin [Susceptibility] by Minimum <2 inhibitory concentration (GUSTAVO) (test code = 76-0) Trimethoprim+Sulfamethoxazole =2/38 [Susceptibility] by Minimum inhibitory concentration (GUSTAVO) (test code = 516-5) Tetracycline [Susceptibility] by >8 Minimum inhibitory concentration (GUSTAVO) (test code = 496-0) Amoxicillin+Clavulanate =8/4 [Susceptibility] by Minimum inhibitory concentration (GUSTAVO) (test code = 20-8) Tobramycin [Susceptibility] by Minimum <4 inhibitory concentration (GUSTAVO) (test code = 508-2) Nitrofurantoin [Susceptibility] by <32 Minimum inhibitory concentration (GUSTAVO) (test code = 363-2) Cefotaxime [Susceptibility] by Minimum <2 inhibitory concentration (GUSTAVO) (test code = 108-1) Cefepime [Susceptibility] by Minimum <8 inhibitory concentration (GUSTAVO) (test code = 6644-9) Levofloxacin [Susceptibility] by <2 Minimum inhibitory concentration (GUSTAVO) (test code = 10288-6) Piperacillin+Tazobactam <16 [Susceptibility] by Minimum inhibitory concentration (GUSTAVO) (test code = 412-7) Ceftazidime [Susceptibility] by Minimum <1 inhibitory concentration (GUSTAVO) (test code = 133-9) Ceftriaxone [Susceptibility] by Minimum <1 inhibitory concentration (GUSTAVO) (test code = 141-2) Ciprofloxacin [Susceptibility] by <1 Minimum inhibitory concentration (GUSTAVO) (test code = 185-9) Imipenem [Susceptibility] by Minimum <1 inhibitory concentration (GUSTAVO) (test code = 279-0) Ampicillin+Sulbactam [Susceptibility] =8/4 by Minimum inhibitory concentration (GUSTAVO) (test code = 32-3) Ertapenem [Susceptibility] by Minimum <0.5 inhibitory concentration (GUSTAVO) (test code = 18688-1) Aztreonam [Susceptibility] by Minimum <4 inhibitory concentration (GUSTAVO) (test code = 44-8) Cefuroxime [Susceptibility] by Minimum <4 inhibitory concentration (GUSTAVO) (test code = 93601-7) [facility] Differential panel - [id number] 12:35:00 Test Item Value Reference Range Interpretation Comments white blood count (test code = 12.4 K/uL 4.0-11.5 white blood count) red blood count (test code = red 3.63 M/uL 3.80-5.20 L blood count) hemoglobin (test code = 10.0 g/dL 10.5-15.7 L hemoglobin) hematocrit (test code = 31.4 % 34.0-50.0 hematocrit) Erythrocyte mean corpuscular 86.5 fL 86-100 volume [Entitic volume] (test code = 86980-0) mean corpuscular hemoglobin (test 27.5 pg 26.2-33.4 code = mean corpuscular hemoglobin) mean corpuscular HGB conc (test 31.8 g/dL 30-34 code = mean corpuscular HGB conc) red cell distribution width (test 13.7 % 12.0-15.5 code = red cell distribution width) platelet count (test code = 254 K/uL 165-450 platelet count) mean platelet volume (test code = 10.2 fL 9.4-12.6 mean platelet volume) Neutrophils.segmented/100 77.7 % 44.4-80.1 leukocytes in Blood (test code = 68682-8) Granulocytes Immature [#/volume] 0.1 K/uL 0.0-0.03 H in Blood (test code = 20049-2) lymphocyte% (test code = 15.7 % 10.0-50.0 lymphocyte%) mono % (test code = mono %) 5.7 % 3.6-12.0 eos % (test code = eos %) 0.3 % 0.0-5.4 Basophils/100 leukocytes in 0.2 % 0.1-1.2 Unspecified specimen (test code = 48102-0) Neutrophils.band form [#/volume] 9.61 K/uL 1.56-6.13 H in Blood (test code = 90215-9) Lymphocytes [#/volume] in 1.9 K/uL 1.18-3.74 Unspecified specimen by Automated count (test code = 50371-7) mono # (test code = mono #) 0.70 K/uL 0.24-0.86 eos # (test code = eos #) 0.04 K/uL 0.04-0.36 basophil # (test code = basophil 0.02 K/uL 0.01-0.08 #) NRBC% (test code = NRBC%) 0 /100 WBC 0-0.2 NRBC# (test code = NRBC#) 0 K/uL [facility]2 Ab [Presence] in [id number] 12:35:00HIV P24 AgHIV-1/2 AbMatagoSelect Specialty Hospital GroupABO & Rh group [Type] in [id number] 12:35:00 Test Item Value Reference Range Interpretation Comments Rh [Type] in Blood (test code = 3+ 59287-2) ABO and Rh group panel - Blood O positive (test code = 65245-6) [facility] [Presence] in Serum or Plasma 2019-03-04 12:35:00 Test Item Value Reference Range Interpretation Comments Blood group antibody screen negative [Presence] in Serum or Plasma (test code = 890-4) [facility] HospitalBacteria identified in Urine by [id number] 12:35:00Bacteria Ur CultNetaUMMC Holmes CountyReagin Ab [Presence] in Serum by [id number] 12:35:00 Test Item Value Reference Range Interpretation Comments Reagin Ab [Presence] in Serum by nonreactive nonreactive RPR (test code = 70426-5) [facility], [id number] 12:35:00 Test Item Value Reference Range Interpretation Comments Gentamicin [Susceptibility] by Minimum <2 inhibitory concentration (GUSTAVO) (test code = 267-5) Ampicillin [Susceptibility] by Minimum <8 inhibitory concentration (GUSTAVO) (test code = 28-1) Cefazolin [Susceptibility] by Minimum <2 inhibitory concentration (GUSTAVO) (test code = 76-0) Trimethoprim+Sulfamethoxazole =2/38 [Susceptibility] by Minimum inhibitory concentration (GUSTAVO) (test code = 516-5) Tetracycline [Susceptibility] by >8 Minimum inhibitory concentration (GUSTAVO) (test code = 496-0) Amoxicillin+Clavulanate =8/4 [Susceptibility] by Minimum inhibitory concentration (GUSTAVO) (test code = 20-8) Tobramycin [Susceptibility] by Minimum <4 inhibitory concentration (GUSTAVO) (test code = 508-2) Nitrofurantoin [Susceptibility] by <32 Minimum inhibitory concentration (GUSTAVO) (test code = 363-2) Cefotaxime [Susceptibility] by Minimum <2 inhibitory concentration (GUSTAVO) (test code = 108-1) Cefepime [Susceptibility] by Minimum <8 inhibitory concentration (GUSTAVO) (test code = 6644-9) Levofloxacin [Susceptibility] by <2 Minimum inhibitory concentration (GUSTAVO) (test code = 63064-9) Piperacillin+Tazobactam <16 [Susceptibility] by Minimum inhibitory concentration (GUSTAVO) (test code = 412-7) Ceftazidime [Susceptibility] by Minimum <1 inhibitory concentration (GUSTAVO) (test code = 133-9) Ceftriaxone [Susceptibility] by Minimum <1 inhibitory concentration (GUSTAVO) (test code = 141-2) Ciprofloxacin [Susceptibility] by <1 Minimum inhibitory concentration (GUSTAVO) (test code = 185-9) Imipenem [Susceptibility] by Minimum <1 inhibitory concentration (GUSTAVO) (test code = 279-0) Ampicillin+Sulbactam [Susceptibility] =8/4 by Minimum inhibitory concentration (GUSTAVO) (test code = 32-3) Ertapenem [Susceptibility] by Minimum <0.5 inhibitory concentration (GUSTAVO) (test code = 81568-6) Aztreonam [Susceptibility] by Minimum <4 inhibitory concentration (GUSTAVO) (test code = 44-8) Cefuroxime [Susceptibility] by Minimum <4 inhibitory concentration (GUSTAVO) (test code = 37557-6) [facility] Differential panel - [id number] 12:35:00 Test Item Value Reference Range Interpretation Comments white blood count (test code = 12.4 K/uL 4.0-11.5 white blood count) red blood count (test code = red 3.63 M/uL 3.80-5.20 L blood count) hemoglobin (test code = 10.0 g/dL 10.5-15.7 L hemoglobin) hematocrit (test code = 31.4 % 34.0-50.0 hematocrit) Erythrocyte mean corpuscular 86.5 fL 86-100 volume [Entitic volume] (test code = 98043-4) mean corpuscular hemoglobin (test 27.5 pg 26.2-33.4 code = mean corpuscular hemoglobin) mean corpuscular HGB conc (test 31.8 g/dL 30-34 code = mean corpuscular HGB conc) red cell distribution width (test 13.7 % 12.0-15.5 code = red cell distribution width) platelet count (test code = 254 K/uL 165-450 platelet count) mean platelet volume (test code = 10.2 fL 9.4-12.6 mean platelet volume) Neutrophils.segmented/100 77.7 % 44.4-80.1 leukocytes in Blood (test code = 57837-3) Granulocytes Immature [#/volume] 0.1 K/uL 0.0-0.03 H in Blood (test code = 95693-0) lymphocyte% (test code = 15.7 % 10.0-50.0 lymphocyte%) mono % (test code = mono %) 5.7 % 3.6-12.0 eos % (test code = eos %) 0.3 % 0.0-5.4 Basophils/100 leukocytes in 0.2 % 0.1-1.2 Unspecified specimen (test code = 38872-6) Neutrophils.band form [#/volume] 9.61 K/uL 1.56-6.13 H in Blood (test code = 63568-2) Lymphocytes [#/volume] in 1.9 K/uL 1.18-3.74 Unspecified specimen by Automated count (test code = 05226-9) mono # (test code = mono #) 0.70 K/uL 0.24-0.86 eos # (test code = eos #) 0.04 K/uL 0.04-0.36 basophil # (test code = basophil 0.02 K/uL 0.01-0.08 #) NRBC% (test code = NRBC%) 0 /100 WBC 0-0.2 NRBC# (test code = NRBC#) 0 K/uL [facility]HIV [facility]+2 Ab [Presence] in [id number] 12:35:00HIV P24 AgHIV-1/2 AbMataRut[facility] GroupABO & Rh group [Type] in [id number] 12:35:00 Test Item Value Reference Range Interpretation Comments Rh [Type] in Blood (test code = 3+ 05488-8) ABO and Rh group panel - Blood O positive (test code = 08704-8) [facility] GroupBlood [facility] antibody screen [Presence] in Serum or Plasma 2019-03-04 12:35:00 Test Item Value Reference Range Interpretation Comments Blood group antibody screen negative [Presence] in Serum or Plasma (test code = 890-4) [facility] GroupBacteria identified in Urine by [id number] 12:35:00Bacteria Ur CultPermian Regional Medical Center GroupReagin Ab [Presence] in Serum by [id number] 12:35:00 Test Item Value Reference Range Interpretation Comments Reagin Ab [Presence] in Serum by nonreactive nonreactive RPR (test code = 39684-0) [facility], [id number] 12:35:00 Test Item Value Reference Range Interpretation Comments Gentamicin [Susceptibility] by Minimum <2 inhibitory concentration (GUSTAVO) (test code = 267-5) Ampicillin [Susceptibility] by Minimum <8 inhibitory concentration (GUSTAVO) (test code = 28-1) Cefazolin [Susceptibility] by Minimum <2 inhibitory concentration (GUSTAVO) (test code = 76-0) Trimethoprim+Sulfamethoxazole =2/38 [Susceptibility] by Minimum inhibitory concentration (GUSTAVO) (test code = 516-5) Tetracycline [Susceptibility] by >8 Minimum inhibitory concentration (GUSTAVO) (test code = 496-0) Amoxicillin+Clavulanate =8/4 [Susceptibility] by Minimum inhibitory concentration (GUSTAVO) (test code = 20-8) Tobramycin [Susceptibility] by Minimum <4 inhibitory concentration (GUSTAVO) (test code = 508-2) Nitrofurantoin [Susceptibility] by <32 Minimum inhibitory concentration (GUSTAVO) (test code = 363-2) Cefotaxime [Susceptibility] by Minimum <2 inhibitory concentration (GUSTAVO) (test code = 108-1) Cefepime [Susceptibility] by Minimum <8 inhibitory concentration (GUSTAVO) (test code = 6644-9) Levofloxacin [Susceptibility] by <2 Minimum inhibitory concentration (GUSTAVO) (test code = 36076-5) Piperacillin+Tazobactam <16 [Susceptibility] by Minimum inhibitory concentration (GUSTAVO) (test code = 412-7) Ceftazidime [Susceptibility] by Minimum <1 inhibitory concentration (GUSTAVO) (test code = 133-9) Ceftriaxone [Susceptibility] by Minimum <1 inhibitory concentration (GUSTAVO) (test code = 141-2) Ciprofloxacin [Susceptibility] by <1 Minimum inhibitory concentration (GUSTAVO) (test code = 185-9) Imipenem [Susceptibility] by Minimum <1 inhibitory concentration (GUSTAVO) (test code = 279-0) Ampicillin+Sulbactam [Susceptibility] =8/4 by Minimum inhibitory concentration (GUSTAVO) (test code = 32-3) Ertapenem [Susceptibility] by Minimum <0.5 inhibitory concentration (GUSTAVO) (test code = 81158-0) Aztreonam [Susceptibility] by Minimum <4 inhibitory concentration (GUSTAVO) (test code = 44-8) Cefuroxime [Susceptibility] by Minimum <4 inhibitory concentration (GUSTAVO) (test code = 04299-4) [facility] Differential panel - [id number] 12:35:00 Test Item Value Reference Range Interpretation Comments white blood count (test code = 12.4 K/uL 4.0-11.5 white blood count) red blood count (test code = red 3.63 M/uL 3.80-5.20 L blood count) hemoglobin (test code = 10.0 g/dL 10.5-15.7 L hemoglobin) hematocrit (test code = 31.4 % 34.0-50.0 hematocrit) Erythrocyte mean corpuscular 86.5 fL 86-100 volume [Entitic volume] (test code = 40580-8) mean corpuscular hemoglobin (test 27.5 pg 26.2-33.4 code = mean corpuscular hemoglobin) mean corpuscular HGB conc (test 31.8 g/dL 30-34 code = mean corpuscular HGB conc) red cell distribution width (test 13.7 % 12.0-15.5 code = red cell distribution width) platelet count (test code = 254 K/uL 165-450 platelet count) mean platelet volume (test code = 10.2 fL 9.4-12.6 mean platelet volume) Neutrophils.segmented/100 77.7 % 44.4-80.1 leukocytes in Blood (test code = 55435-1) Granulocytes Immature [#/volume] 0.1 K/uL 0.0-0.03 H in Blood (test code = 44192-7) lymphocyte% (test code = 15.7 % 10.0-50.0 lymphocyte%) mono % (test code = mono %) 5.7 % 3.6-12.0 eos % (test code = eos %) 0.3 % 0.0-5.4 Basophils/100 leukocytes in 0.2 % 0.1-1.2 Unspecified specimen (test code = 98073-1) Neutrophils.band form [#/volume] 9.61 K/uL 1.56-6.13 H in Blood (test code = 69055-1) Lymphocytes [#/volume] in 1.9 K/uL 1.18-3.74 Unspecified specimen by Automated count (test code = 56920-3) mono # (test code = mono #) 0.70 K/uL 0.24-0.86 eos # (test code = eos #) 0.04 K/uL 0.04-0.36 basophil # (test code = basophil 0.02 K/uL 0.01-0.08 #) NRBC% (test code = NRBC%) 0 /100 WBC 0-0.2 NRBC# (test code = NRBC#) 0 K/uL [facility] GroupHIV 1+2 Ab [Presence] in [id number] 12:35:00HIV P24 AgHIV-1/2 AbMatahart[facility] Medical GroupABO & Rh group [Type] in [id number] 12:35:00 Test Item Value Reference Range Interpretation Comments Rh [Type] in Blood (test code = 3+ 09368-3) ABO and Rh group panel - Blood O positive (test code = 83416-9) [facility] GroupBlood group antibody screen [Presence] in Serum or Plasma 2019-03-04 12:35:00 Test Item Value Reference Range Interpretation Comments Blood group antibody screen negative [Presence] in Serum or Plasma (test code = 890-4) [facility] GroupBacteria identified in Urine by [id number] 12:35:00Bacteria Ur CultPermian Regional Medical Center GroupReagin Ab [Presence] in Serum by [id number] 12:35:00 Test Item Value Reference Range Interpretation Comments Reagin Ab [Presence] in Serum by nonreactive nonreactive RPR (test code = 31513-2) [facility] Groupantibiotic sensitivity testing, [id number] 12:35:00 Test Item Value Reference Range Interpretation Comments Gentamicin [Susceptibility] by Minimum <2 inhibitory concentration (GUSTAVO) (test code = 267-5) Ampicillin [Susceptibility] by Minimum <8 inhibitory concentration (GUSTAVO) (test code = 28-1) Cefazolin [Susceptibility] by Minimum <2 inhibitory concentration (GUSTAVO) (test code = 76-0) Trimethoprim+Sulfamethoxazole =2/38 [Susceptibility] by Minimum inhibitory concentration (GUSTAVO) (test code = 516-5) Tetracycline [Susceptibility] by >8 Minimum inhibitory concentration (GUSTAVO) (test code = 496-0) Amoxicillin+Clavulanate =8/4 [Susceptibility] by Minimum inhibitory concentration (GUSTAVO) (test code = 20-8) Tobramycin [Susceptibility] by Minimum <4 inhibitory concentration (GUSTAVO) (test code = 508-2) Nitrofurantoin [Susceptibility] by <32 Minimum inhibitory concentration (GUSTAVO) (test code = 363-2) Cefotaxime [Susceptibility] by Minimum <2 inhibitory concentration (GUSTAVO) (test code = 108-1) Cefepime [Susceptibility] by Minimum <8 inhibitory concentration (GUSTAVO) (test code = 6644-9) Levofloxacin [Susceptibility] by <2 Minimum inhibitory concentration (GUSTAVO) (test code = 65501-6) Piperacillin+Tazobactam <16 [Susceptibility] by Minimum inhibitory concentration (GUSTAVO) (test code = 412-7) Ceftazidime [Susceptibility] by Minimum <1 inhibitory concentration (GUSTAVO) (test code = 133-9) Ceftriaxone [Susceptibility] by Minimum <1 inhibitory concentration (GUSTAVO) (test code = 141-2) Ciprofloxacin [Susceptibility] by <1 Minimum inhibitory concentration (GUSTAVO) (test code = 185-9) Imipenem [Susceptibility] by Minimum <1 inhibitory concentration (GUSTAVO) (test code = 279-0) Ampicillin+Sulbactam [Susceptibility] =8/4 by Minimum inhibitory concentration (GUSTAVO) (test code = 32-3) Ertapenem [Susceptibility] by Minimum <0.5 inhibitory concentration (GUSTAVO) (test code = 37532-6) Aztreonam [Susceptibility] by Minimum <4 inhibitory concentration (GUSTAVO) (test code = 44-8) Cefuroxime [Susceptibility] by Minimum <4 inhibitory concentration (GUSTAVO) (test code = 36666-0) [facility] B virus surface Ag [Presence] in Serum 2019-03-04 02:36:00 Test Item Value Reference Range Interpretation Comments .hepatitis B surface antigen (test negative negative code = .hepatitis B surface antigen) [facility] B virus surface Ag [Presence] in Serum 2019-03-04 02:36:00 Test Item Value Reference Range Interpretation Comments .hepatitis B surface antigen (test negative negative code = .hepatitis B surface antigen) [facility] B virus surface Ag [Presence] in Serum 2019-03-04 02:36:00 Test Item Value Reference Range Interpretation Comments .hepatitis B surface antigen (test negative negative code = .hepatitis B surface antigen) [facility] B virus surface Ag [Presence] in Serum 2019-03-04 02:36:00 Test Item Value Reference Range Interpretation Comments .hepatitis B surface antigen (test negative negative code = .hepatitis B surface antigen) [facility] [Presence] in Serum 2019-03-04 02:36:00 Test Item Value Reference Range Interpretation Comments .hepatitis B surface antigen (test negative negative code = .hepatitis B surface antigen) [facility]
[2020-03-01] MEDS ORDERED: NA CHLORIDE 0.9% 1,000 ML ONE (02:40)
[2020-03-01 03:02] LABS: Absolute Lymphocytes (CBC) 3.5 K/uL (0.7-4.9); Basophils % 0.8 % (0-1.3); Hematocrit 38.5 % (36.0-45.0); Lymphocytes % 42.5 % (15.3-44.8); MPV 9.8 fL (7.6-11.3); RBC Red Blood Cell Count 4.77 M/uL (3.86-4.86)
[2020-03-01 03:12] LABS: BUN Blood Urea Nitrogen 12 mg/dL (7-18); Bicarbonate 30 mmol/L (21-32); Glucose Level 96 mg/dL (74-106); Sodium Level 143 mmol/L (136-145)
[2020-03-01 03:13] LABS: HCG, Quantitative < 1 mIU/mL (1-3)
[2020-03-01] MEDS ORDERED: MORPHINE 2 MG/ML SYR ONE ×2 (03:13→04:16)
[2020-03-01] MEDS ORDERED: CEFTRIAXONE 1000 MG/VIAL ONE (03:13)
[2020-03-01] MEDS ORDERED: ONDANSETRON 4 MG/2 ML VIAL ONE (03:13)
--- NOTE | 2020-03-01 03:46 | ER ---
Nurse's Notes [facility] Name: Gloria Modi Age: 24 yrs Sex: Female : 1995 Arrival Date: 03/01/2020 Time: 02:13 Bed 8 Private MD: Diagnosis: Abdominal tenderness;Urinary tract infection, site not specified Presentation: 03/01 02:21 Chief complaint: Patient states: lower abdominal pain started this morning and got dm5 worse throughout the day. Pain rated at 10/10 . SX of tubal ligation but had a positive home test yesterday, started bleeding lightly this morning and then started to pass bright red blood and clots. Pt is concerned with ectopic . Coronavirus screen: Client denies travel out of the [place] in the last 14 days. At this time, the client does not indicate any symptoms associated with coronavirus-19. Ebola Screen: Patient negative for fever greater than or equal to 101.5 degrees Fahrenheit, and additional compatible Ebola Virus Disease symptoms Patient denies exposure to infectious person. Patient denies travel to an Ebola-affected area in the 21 days before illness onset. No symptoms or risks identified at this time. Initial Sepsis Screen: Does the patient meet any 2 criteria? No. Patient's initial sepsis screen is negative. Does the patient have a suspected source of infection? Yes: Acute abdominal pain. Risk Assessment: Do you want to hurt yourself or someone else? Patient reports no desire to harm self or others. Onset of symptoms was March 01, 2020. 02:21 Method Of Arrival: Ambulatory dm5 02:21 Acuity: NICO 2 dm5 Triage Assessment: 02:25 General: Appears in no apparent distress. Behavior is cooperative. Pain: Complains of dm5 pain in suprapubic area Pain currently is 10 out of 10 on a pain scale. Neuro: Level of Consciousness is awake, alert, obeys commands, Oriented to person, place, time, situation. GI: Abdomen is distended. Derm: Skin is pink, warm \T\ dry. slight abnormal pink color to skin due to recently dying her hair. 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 - Family history:: not pertinent. - Social history:: Smoking status: Smoking status: Patient reports the use of cigarette tobacco products, smokes one-half pack cigarettes per day. Screenin:31 Abuse screen: Denies threats or abuse. Denies injuries from another. Nutritional rv screening: No deficits noted. Tuberculosis screening: No symptoms or risk factors identified. Fall Risk None identified. Assessment: 02:30 General: Appears uncomfortable, Behavior is calm, cooperative. Pain: Complains of pain rv in suprapubic area, right lower quadrant and left lower quadrant. Neuro: Level of Consciousness is awake, alert, obeys commands, Oriented to person, place, time, situation. Cardiovascular: Patient's skin is warm and dry. Respiratory: Airway is patent Respiratory effort is even, unlabored, Breath sounds are clear bilaterally. GI: Bowel sounds present X 4 quads. Abd is soft X 4 quads Abdomen is tender to palpation in suprapubic area, right lower quadrant and left lower quadrant. Derm: Skin is intact. Vital Signs: 02:21 BP 122 / 61; Pulse 72; Resp 18; Temp 97.9(O); Pulse Ox 100% on R/A; Weight 45.36 kg dm5 (R); Height 5 ft. 1 in. (154.94 cm); Pain 10/10; 03:48 BP 101 / 78; Pulse 56; Resp 16; Pulse Ox 100% on R/A; rv 02:21 Body Mass Index 18.89 (45.36 kg, 154.94 cm) dm5 ED Course: 02:13 Patient arrived in ED. cf2 02:15 Kennedy Madera RN is Primary Nurse. rv 02:23 Alden Lindsay MD is Attending Physician. oren 02:24 Triage completed. dm5 02:25 Arm band placed on Patient placed in an exam room. dm5 02:31 Initial lab(s) drawn, by me, sent to lab. Inserted saline lock: 20 gauge in right rv antecubital area, using aseptic technique. Blood collected. 02:32 Patient has correct armband on for positive identification. Placed in gown. Bed in low rv position. Call light in reach. Side rails up X 1. Pulse ox on. NIBP on. 03:45 Sharri Pichardo MD is Referral Physician. oren 03:49 No provider procedures requiring assistance completed. rv 04:06 IV discontinued, intact, bleeding controlled, No redness/swelling at site. Pressure rv dressing applied. Administered Medications: 02:32 Drug: NS 0.9% 1000 ml Route: IV; Rate: 1 bolus; Site: right antecubital; rv 03:47 Follow up: IV Status: Completed infusion; IV Intake: 1000ml rv 03:06 Drug: morphine 2 mg Route: IVP; Site: right antecubital; rv 03:48 Follow up: Response: No adverse reaction; Marked relief of symptoms; Pain is decreased; rv RASS: Alert and Calm (0) 03:06 Drug: Zofran (Ondansetron) 4 mg Route: IVP; Site: right antecubital; rv 03:48 Follow up: Response: No adverse reaction rv 03:06 Drug: Rocephin 1 grams Route: IV; Rate: per protocol; Site: right antecubital; rv 03:10 Follow up: IV Status: Completed infusion rv 03:48 Follow up: Response: No adverse reaction rv 04:05 Drug: morphine 2 mg {Note: RASS 0.} Route: IVP; Site: right antecubital; rv 04:06 Follow up: Response: Medication administered at discharge. rv Intake: 03:47 IV: 1000ml; Total: 1000ml. rv Outcome: 03:45 Discharge ordered by . oren 03:53 Discharged to home ambulatory. rv 03:53 Condition: good 03:53 Discharge instructions given to patient, Instructed on discharge instructions, follow up and referral plans. medication usage, Demonstrated understanding of instructions, follow-up care, medications, Prescriptions given X 3. 04:06 Patient left the ED. rv Signatures: Ina Alexander, RN RN Alden Flores MD MD cha Vicente, Ronaldo, RN RN rv Jose Stephens cf2 Corrections: (The following items were deleted from the chart) 04:06 03:49 IV discontinued, intact, bleeding controlled, No redness/swelling at site. rv Pressure dressing applied, rv
--- NOTE | 2020-03-01 03:46 | EDPHYS ---
Physician Documentation [facility] Name: Gloria Modi Age: 24 yrs Sex: Female : 1995 Arrival Date: 03/01/2020 Time: 02:13 Bed 8 Private MD: JULIETA Physician Alden Lindsay HPI: 03/01 02:28 This 24 yrs old Female presents to ER via Ambulatory with complaints of oren Abdominal Pain. 02:28 The patient presents with abdominal pain in the lower abdomen. Onset: The oren symptoms/episode began/occurred 2 day(s) ago. The patient presents to the emergency department with vaginal bleeding, that is moderate. Severity of pain: At its worst the pain was moderate last night. The patient has not experienced similar symptoms in the past. 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 - Family history:: not pertinent. - Social history:: Smoking status: Smoking status: Patient reports the use of cigarette tobacco products, smokes one-half pack cigarettes per day. ROS: 02:28 Constitutional: Negative for fever, chills, and weight loss, Eyes: Negative for injury, oren pain, redness, and discharge, ENT: Negative for injury, pain, and discharge, Neck: Negative for injury, pain, and swelling, Cardiovascular: Negative for chest pain, palpitations, and edema, Respiratory: Negative for shortness of breath, cough, wheezing, and pleuritic chest pain, Back: Negative for injury and pain, : Negative for injury, bleeding, discharge, and swelling, MS/Extremity: Negative for injury and deformity, Skin: Negative for injury, rash, and discoloration, Neuro: Negative for headache, weakness, numbness, tingling, and seizure, Psych: Negative for depression, anxiety, suicide ideation, homicidal ideation, and hallucinations, Allergy/Immunology: Negative for hives, rash, and allergies, Endocrine: Negative for neck swelling, polydipsia, polyuria, polyphagia, and marked weight changes, Hematologic/Lymphatic: Negative for swollen nodes, abnormal bleeding, and unusual bruising. 02:28 Abdomen/GI: Positive for abdominal pain, abdominal distension, of the right lower quadrant and left lower quadrant. Exam: 02:28 Constitutional: This is a well developed, well nourished patient who is awake, alert, oren and in no acute distress. Head/Face: Normocephalic, atraumatic. Eyes: Pupils equal round and reactive to light, extra-ocular motions intact. Lids and lashes normal. Conjunctiva and sclera are non-icteric and not injected. Cornea within normal limits. Periorbital areas with no swelling, redness, or edema. ENT: Nares patent. No nasal discharge, no septal abnormalities noted. Tympanic membranes are normal and external auditory canals are clear. Oropharynx with no redness, swelling, or masses, exudates, or evidence of obstruction, uvula midline. Mucous membranes moist. Neck: Trachea midline, no thyromegaly or masses palpated, and no cervical lymphadenopathy. Supple, full range of motion without nuchal rigidity, or vertebral point tenderness. No Meningismus. Chest/axilla: Normal chest wall appearance and motion. Nontender with no deformity. No lesions are appreciated. Cardiovascular: Regular rate and rhythm with a normal S1 and S2. No gallops, murmurs, or rubs. Normal PMI, no JVD. No pulse deficits. Respiratory: Lungs have equal breath sounds bilaterally, clear to auscultation and percussion. No rales, rhonchi or wheezes noted. No increased work of breathing, no retractions or nasal flaring. Back: No spinal tenderness. No costovertebral tenderness. Full range of motion. Skin: Warm, dry with normal turgor. Normal color with no rashes, no lesions, and no evidence of cellulitis. MS/ Extremity: Pulses equal, no cyanosis. Neurovascular intact. Full, normal range of motion. Neuro: Awake and alert, GCS 15, oriented to person, place, time, and situation. Cranial nerves II-XII grossly intact. Motor strength 5/5 in all extremities. Sensory grossly intact. Cerebellar exam normal. Normal gait. 02:28 Abdomen/GI: Inspection: distension, Bowel sounds: normal, Palpation: moderate abdominal tenderness, in the right lower quadrant and left lower quadrant, Liver: no appreciated palpable abnormalities, Hernia: not appreciated. Vital Signs: 02:21 BP 122 / 61; Pulse 72; Resp 18; Temp 97.9(O); Pulse Ox 100% on R/A; Weight 45.36 kg dm5 (R); Height 5 ft. 1 in. (154.94 cm); Pain 10/10; 03:48 BP 101 / 78; Pulse 56; Resp 16; Pulse Ox 100% on R/A; rv 02:21 Body Mass Index 18.89 (45.36 kg, 154.94 cm) dm5 MDM: 02:[address] [facility] 02:28 Differential diagnosis: ectopic , Ectopic , non-specific abd pain, oren Pyelonephritis, urinary tract infection. Data reviewed: vital signs, nurses notes, lab test result(s), radiologic studies, ultrasound. Data interpreted: shelter monitor: rate is 72 beats/min, rhythm is regular, Pulse oximetry: on room air. Test interpretation: by ED physician or midlevel provider:. Counseling: I had a detailed discussion with the patient and/or guardian regarding: the historical points, exam findings, and any diagnostic results supporting the discharge/admit diagnosis, lab results, radiology results. 03/01 02:24 Order name: Quantitative Hcg; Complete Time: 03:44 [facility] 03/01 02:24 Order name: Abo/rh Typing [facility] 03/01 02:24 Order name: Basic Metabolic Panel; Complete Time: 03:44 [facility] 03/01 02:24 Order name: CBC with Diff; Complete Time: 03:44 [facility] 03/01 02:56 Order name: Urine Culture [facility] 03/01 02:57 Order name: Urine Dipstick--Ancillary (enter results) nd 03/01 02:24 Order name: Urine Test (obtain specimen); Complete Time: 03:12 [facility] 03/01 02:24 Order name: IV Saline Lock; Complete Time: 02:25 [facility] 03/01 02:24 Order name: Labs collected and sent; Complete Time: 02:25 [facility] 03/01 02:57 Order name: Urine --Ancillary (enter results) nd 03/01 02:24 Order name: NPO; Complete Time: 02:25 [facility] 03/01 02:24 Order name: Urine Dipstick-Ancillary (obtain specimen); Complete Time: 03:12 [facility] Administered Medications: 02:32 Drug: NS 0.9% 1000 ml Route: IV; Rate: 1 bolus; Site: right antecubital; rv 03:47 Follow up: IV Status: Completed infusion; IV Intake: 1000ml rv 03:06 Drug: morphine 2 mg Route: IVP; Site: right antecubital; rv 03:48 Follow up: Response: No adverse reaction; Marked relief of symptoms; Pain is decreased; rv RASS: Alert and Calm (0) 03:06 Drug: Zofran (Ondansetron) 4 mg Route: IVP; Site: right antecubital; rv 03:48 Follow up: Response: No adverse reaction rv 03:06 Drug: Rocephin 1 grams Route: IV; Rate: per protocol; Site: right antecubital; rv 03:10 Follow up: IV Status: Completed infusion rv 03:48 Follow up: Response: No adverse reaction rv 04:05 Drug: morphine 2 mg {Note: RASS 0.} Route: IVP; Site: right antecubital; rv 04:06 Follow up: Response: Medication administered at discharge. rv Disposition: 03/01/20 03:45 Discharged to Home. Impression: Abdominal tenderness, Urinary tract infection, site not specified. - Condition is Stable. - Discharge Instructions: Abdominal Pain, Adult, Urinary Tract Infection, Adult, Urinary Tract Infection, Adult, [id number], Abdominal Pain, Adult, [id number]. - Prescriptions for Bentyl 20 mg Oral Tablet - take 1 tablet by ORAL route every 6 hours As needed; 20 tablet. Zofran 4 mg Oral Tablet - take 1 tablet by ORAL route every 12 hours As needed; 20 tablet. Bactrim DS 800- 160 mg Oral Tablet - take 1 tablet by ORAL route every 12 hours for 7 days; 14 tablet. - Medication Reconciliation Form, Thank You Letter, Antibiotic Education, Prescription Opioid Use form. - Follow up: Private Physician; When: 2 - 3 days; Reason: Recheck today's complaints, Continuance of care, Re-evaluation by your physician. Follow up: Sharri Pichardo MD; When: 2 - 3 days; Reason: Recheck today's complaints, Re-evaluation by your physician. - Problem is new. - Symptoms have improved. Signatures: Dispatcher [employer] Ina Raya, RN RN Alden Flores MD MD cha Vicente, Ronaldo, RN RN rv Corrections: (The following items were deleted from the chart) 04:06 03:45 03/01/2020 03:45 Discharged to Home. Impression: Abdominal tenderness; Urinary rv tract infection, site not specified. Condition is Stable. Forms are Medication Reconciliation Form, Thank You Letter, Antibiotic Education, Prescription Opioid Use. Follow up: Private Physician; When: 2 - 3 days; Reason: Recheck today's complaints, Continuance of care, Re-evaluation by your physician. Follow up: Sharri Pichardo; When: 2 - 3 days; Reason: Recheck today's complaints, Re-evaluation by your physician. Problem is new. Symptoms have improved. oren
[2020-03-01 04:43] LABS: Urine Blood 1+ (NEG); Urine Glucose NEGATIVE (NEG); Urine Protein NEGATIVE (NEG); Urine Specific Gravity 1.025 (1.005-1.030); Urine pH 7.5 (5.0-7.0)
[2020-03-01 12:42] VITALS: TEMP 97.9; O2SAT 100
[2020-03-01 12:43] VITALS: BP 101/78
== END 2020-03-01 04:06 | disposition home or self-care (01) ==
LOC: ER 02:11
DX: N39.0 Urinary tract infection, site not specified (principal); F31.9 Bipolar disorder, unspecified; F17.210 Nicotine dependence, cigarettes, uncomplicated; Z88.5 Allergy status to narcotic agent
CPT/HCPCS: 96361; 87088; 85025; 87086; 80048; 36415; 86900; 81025; 86901; 84702; 81003; 96375; 96374; 99284; J2270 ×2; J7030; J2405

== ENCOUNTER 2021-11-10 19:26 | Emergency (ER) | payer OTHER ==
[2021-11-10 21:19] LABS: Urine Blood 3+ (Negative); Urine Glucose Negative (Negative); Urine Protein Negative (Negative)
[2021-11-10 21:36] LABS: Absolute Lymphocytes (CBC) 3.3 K/uL (0.7-4.9); Hematocrit 39.7 % (36.0-45.0); Lymphocytes % 34.5 % (15.3-44.8); MCV 78.7 fL (80-100); MPV 9.2 fL (7.6-11.3); RBC Red Blood Cell Count 5.05 M/uL (3.86-4.86)
[2021-11-10 21:47] LABS: Urine Bacteria >50 /HPF (<20)
[2021-11-10 21:48] LABS: BUN Blood Urea Nitrogen 7 mg/dL (7-18); Bicarbonate 28 mmol/L (21-32); Glomerular Filtration Rate 116 ml/min (=/>90); Glucose Level 89 mg/dL (74-106); Potassium 3.5 mmol/L (3.5-5.1); Sodium Level 138 mmol/L (136-145)
[2021-11-10 21:52] LABS: HCG, Quantitative < 1 mIU/mL (1-3)
--- NOTE | 2021-11-10 22:05 | RAD REPORT ---
EXAM DESCRIPTION: US - Transvaginal OB - 11/10/2021 9:50 pm CLINICAL HISTORY: VAGINAL BLEEDING COMPARISON: Transvaginal OB dated 02/05/2020 FINDINGS: The uterus is normal sized. There is no evidence of IUP seen at this time. Endometrium is mildly thickened. The maternal adnexa and ovaries are within normal limits. Normal Doppler blood flow was demonstrated to both ovaries. IMPRESSION: No IUP is visualized. In the setting of a positive HCG level, this would be considered a of unknown location. Recommend interval follow-up pelvic ultrasound in 7-10 days and serial HCG measurements.
--- NOTE | 2021-11-11 00:26 | EDPHYS ---
Physician Documentation [facility] Name: Gloria Modi Age: 26 yrs Sex: Female : 1995 Arrival Date: 11/10/2021 Time: 19:42 Bed 2 Private MD: ED Physician Wero Rose HPI: 11/11 00:45 This 26 yrs old Female presents to ER via Ambulatory with complaints of kb Vaginal Bleeding. 00:45 The patient presents with vaginal bleeding that is light. Onset: The symptoms/episode kb began/occurred today. Modifying factors: The symptoms are alleviated by nothing, the symptoms are aggravated by nothing. Associated signs and symptoms: Pertinent positives: vaginal bleeding. Severity of symptoms: At their worst the symptoms were mild, in the emergency department the symptoms are unchanged. The patient has not experienced similar symptoms in the past. The patient has not recently seen a physician. Patient reports right lower quadrant pain and vaginal bleeding that started today. States she missed her period at the beginning of the month and has had 6 positive test at home. Reports having a tubal ligation in 2019.. 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 - Social history:: Smoking status: Reported history of juuling and/or vaping. ROS: 11/11 00:43 Constitutional: Negative for fever, chills, and weight loss. kb Abdomen/GI: Positive for abdominal pain, Negative for nausea, vomiting, and diarrhea. : Positive for vaginal bleeding. All other systems are negative. Exam: 00:45 Constitutional: This is a well developed, well nourished patient who is awake, alert, kb and in no acute distress. Head/Face: Normocephalic, atraumatic. ENT: Moist Mucous membranes Cardiovascular: Regular rate and rhythm with a normal S1 and S2. No gallops, murmurs, or rubs. No pulse deficits. Respiratory: Respirations even and unlabored. No increased work of breathing. Talking in full sentences Skin: Warm, dry with normal turgor. Normal color. MS/ Extremity: Pulses equal, no cyanosis. Neurovascular intact. Full, normal range of motion. Neuro: Awake and alert, GCS 15, oriented to person, place, time, and situation. Moves all extremities. Normal gait. Psych: Awake, alert, with orientation to person, place and time. Behavior, mood, and affect are within normal limits. 00:45 Abdomen/GI: Inspection: abdomen appears normal, Bowel sounds: normal, Palpation: soft, in all quadrants, moderate abdominal tenderness, in the right lower quadrant. Vital Signs: 11/10 20:42 BP 118 / 79; Pulse 76; Resp 18 S; Temp 98.6; Pulse Ox 95% on R/A; Weight 43.09 kg; tw5 Height 5 ft. 0 in. (152.40 cm); Pain 8/10; 22:45 BP 116 / 78; Pulse 68; Resp 16; Pulse Ox 100% on R/A; Pain 9/10; hb 23:31 BP 95 / 63; Pulse 67; Resp 15; Pulse Ox 99% on R/A; hb 11/11 00:47 BP 98 / 58; Pulse 68; Resp 16; Pulse Ox 99% on R/A; Pain 0/10; kl 11/10 20:42 Body Mass Index 18.55 (43.09 kg, 152.40 cm) tw5 MDM: 11/10 20:49 Patient medically screened. kb 11/11 00:44 Data reviewed: vital signs, nurses notes. Data interpreted: Pulse oximetry: on room air kb is 99 %. Interpretation: normal. Counseling: I had a detailed discussion with the patient and/or guardian regarding: the historical points, exam findings, and any diagnostic results supporting the discharge/admit diagnosis, lab results, radiology results, the need for outpatient follow up, a family practitioner, to return to the emergency department if symptoms worsen or persist or if there are any questions or concerns that arise at home. 11/10 21:20 Order name: Urine Dipstick-Ancillary; Complete Time: 21:40 EDMS 11/10 21:21 Order name: Urine Microscopic Only; Complete Time: 21:50 ds4 11/10 21:21 Order name: Urine --Ancillary (enter results); Complete Time: 21:40 [facility] 11/10 21:22 Order name: Transvaginal OB; Complete Time: 22:09 [facility] 11/10 21:27 Order name: Basic Metabolic Panel; Complete Time: 22:02 [facility] 11/10 21:27 Order name: HCG, Quantitative; Complete Time: 22:02 [facility] 11/10 21:27 Order name: CBC with Automated Diff; Complete Time: 21:40 [facility] 11/10 21:27 Order name: ABO/RH typing; Complete Time: 22:02 [facility] 11/10 21:50 Order name: Urine Culture [facility] 11/10 20:49 Order name: IV Saline Lock; Complete Time: 21:15 [facility] 11/10 20:49 Order name: Labs collected and sent; Complete Time: 21:15 [facility] 11/10 20:49 Order name: NPO; Complete Time: 21:57 [facility] 11/10 20:49 Order name: Urine Dipstick-Ancillary (obtain specimen); Complete Time: 21:22 [facility] 11/10 20:49 Order name: Urine Test (obtain specimen); Complete Time: 21:22 [facility] 11/10 22:09 Order name: CT Abd/Pelvis - IV Contrast Only kb Administered Medications: 00:35 Drug: Rocephin (cefTRIAXone) 1 grams Route: IV; Rate: calculated rate; Site: left kl antecubital; 00:47 Follow up: Response: No adverse reaction Disposition: 05:58 I agree with the assessment and plan of care. [facility] Disposition Summary: 11/11/21 00:25 Discharge Ordered Location: Home kb Condition: Stable kb Diagnosis - UTI/ Urinary tract infection, site not specified kb Followup: kb - With: Emergency Department - When: As needed - Reason: Worsening of condition Followup: kb - With: Private Physician - When: 2 - 3 days - Reason: Recheck today's complaints, Continuance of care, Re-evaluation by your physician Discharge Instructions: - Discharge Summary Sheet kb - Urinary Tract Infection, Adult, [id number] kb Forms: - Medication Reconciliation Form kb - Thank You Letter kb - Antibiotic Education kb - Prescription Opioid Use kb Prescriptions: - Macrobid 100 mg Oral Capsule - take 1 capsule by ORAL route every 12 hours for 10 days; 20 capsule; Refills: kb 0, Product Selection Permitted Signatures: Dispatcher [employer] EDMS Cristy Alaniz FNP-C FNP-Ckb Lewis, Kimberly, RN RN Wero Oakes MD MD [id number] Yarely Monet tw5 Corrections: (The following items were deleted from the chart) 11/10 21:31 21:22 ABO/RH TYPING+BB.LAB.BRZ ordered. EDMS EDMS : 21:22 BASIC METABOLIC PANEL+C.LAB.BRZ ordered. EDMS EDMS : 21:22 CBC+H.LAB.BRZ ordered. EDMS EDMS :32 21:22 QUANTITATIVE HCG+C.LAB.BRZ ordered. EDMS EDMS 21:53 21:21 Transvaginal Ob+US.RAD.BRZ ordered. EDMS EDMS
--- NOTE | 2021-11-11 00:26 | ER ---
Nurse's Notes [facility] Name: Gloria Modi Age: 26 yrs Sex: Female : 1995 Arrival Date: 11/10/2021 Time: 19:42 Bed 2 Private MD: Diagnosis: UTI/ Urinary tract infection, site not specified Presentation: 11/10 20:42 Chief complaint: Patient states: "I have taken about 6 tests and they all tw5 came back positive. I started bleeding today and having pain on my right side. If I was I would be 7 weeks and three days.". Coronavirus screen: Vaccine status: Patient reports receiving the 1st dose of the Covid vaccine. Moderna. Ebola Screen: Patient negative for fever greater than or equal to 101.5 degrees Fahrenheit, and additional compatible Ebola Virus Disease symptoms Patient denies exposure to infectious person. Patient denies travel to an Ebola-affected area in the 21 days before illness onset. Initial Sepsis Screen: Does the patient meet any 2 criteria? No. Patient's initial sepsis screen is negative. Does the patient have a suspected source of infection? No. Patient's initial sepsis screen is negative. Risk Assessment: Do you want to hurt yourself or someone else? Patient reports no desire to harm self or others. Onset of symptoms was November 10, 2021 at 14:00. 20:42 Method Of Arrival: Ambulatory tw5 20:42 Acuity: NICO 3 tw5 Triage Assessment: 20:44 General: Appears in no apparent distress. slender, Behavior is calm, cooperative, tw5 appropriate for age. Pain: Complains of pain in right lower quadrant Pain radiates to right low back Pain currently is 8 out of 10 on a pain scale. : Reports vaginal bleeding that is moderate flow. 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 - Social history:: Smoking status: Reported history of juuling and/or vaping. Screenin:46 Abuse screen: Denies threats or abuse. Denies injuries from another. Nutritional tw5 screening: No deficits noted. Tuberculosis screening: No symptoms or risk factors identified. Fall Risk None identified. Assessment: 21:17 General: Appears in no apparent distress. comfortable, Behavior is calm, cooperative. kl Pain: Complains of pain in back and right low back and abdomen and right lower quadrant Pain currently is 8 out of 10 on a pain scale. Neuro: No deficits noted. Rocha Agitation-Sedation Scale (RASS): 0 - Alert and Calm. Cardiovascular: No deficits noted. Respiratory: No deficits noted. Airway is patent Trachea midline Respiratory effort is even, unlabored, Respiratory pattern is regular. GI: Reports lower abdominal pain. : No deficits noted. No signs and/or symptoms were reported regarding the genitourinary system. Urine is clear. EENT: No deficits noted. No signs and/or symptoms were reported regarding the EENT system. EENT:. Derm: No deficits noted. No signs and/or symptoms reported regarding the dermatologic system. Musculoskeletal: No deficits noted. No signs and/or symptoms reported regarding the musculoskeletal system. 22:42 Reassessment: Patient appears in no apparent distress at this time. Patient and/or hb family updated on plan of care and expected duration. Pain level reassessed. Patient is alert, oriented x 3, equal unlabored respirations, skin warm/dry/pink. 23:31 Reassessment: Patient appears in no apparent distress at this time. Patient and/or hb family updated on plan of care and expected duration. Pain level reassessed. Patient is alert, oriented x 3, equal unlabored respirations, skin warm/dry/pink. Vital Signs: 20:42 BP 118 / 79; Pulse 76; Resp 18 S; Temp 98.6; Pulse Ox 95% on R/A; Weight 43.09 kg; tw5 Height 5 ft. 0 in. (152.40 cm); Pain 8/10; 22:45 BP 116 / 78; Pulse 68; Resp 16; Pulse Ox 100% on R/A; Pain 9/10; hb 23:31 BP 95 / 63; Pulse 67; Resp 15; Pulse Ox 99% on R/A; hb 07/30 00:47 BP 98 / 58; Pulse 68; Resp 16; Pulse Ox 99% on R/A; Pain 0/10; kl 11/10 20:42 Body Mass Index 18.55 (43.09 kg, 152.40 cm) tw5 ED Course: 11/10 19:42 Patient arrived in ED. am2 19:44 Cristy Alaniz FNP-C [facility]. kb 19:44 Wero Rose MD is Attending Physician. kb 20:44 Triage completed. tw5 20:44 Arm band placed on. tw5 20:47 No provider procedures requiring assistance completed. tw5 21:17 Inserted saline lock: 20 gauge in left antecubital area, using aseptic technique. kl 21:52 Transvaginal OB In Process Unspecified. EDMS 22:46 CT Abd/Pelvis - IV Contrast Only In Process Unspecified. EDMS 11/11 00:48 Patient has correct armband on for positive identification. kl 00:48 IV discontinued, intact, bleeding controlled, No redness/swelling at site. Pressure kl dressing applied. Administered Medications: 00:35 Drug: Rocephin (cefTRIAXone) 1 grams Route: IV; Rate: calculated rate; Site: left kl antecubital; 00:47 Follow up: Response: No adverse reaction kl Medication: 00:48 VIS not applicable for this client. kl Outcome: 00:25 Discharge ordered by . kb 00:48 Discharged to home ambulatory. kl 00:48 Condition: good 00:48 Discharge instructions given to patient, Instructed on discharge instructions, follow up and referral plans. medication usage, Demonstrated understanding of instructions, follow-up care, medications. 00:48 Patient left the ED. kl Signatures: Dispatcher [employer] EDME Cristy Alaniz FNP-C FNP-Josefina Ellison RN RN kl Baxter, Heather, RN RN hb Moreno, Amanda amYarely Holbrook tw5 Corrections: (The following items were deleted from the chart) 11/10 20:47 20:42 Chief complaint: Patient states: "I have taken about 6 tests and they tw5 all came back negative. I started bleeding today and having pain on my right side. If I was I would be 7 weeks and three days." tw5
[2021-11-11] MEDS ORDERED: CEFTRIAXONE 1000 MG/VIAL ONE (00:38)
[2021-11-11 03:04] VITALS: TEMP 98.6
[2021-11-11 03:20] VITALS: O2SAT 99
[2021-11-11 03:31] VITALS: BP 98/58
--- NOTE | 2021-11-11 23:04 | RAD REPORT ---
EXAM DESCRIPTION: CT - Abdomen Pelvis W Contrast - 11/11/2021 2:28 am CLINICAL HISTORY: Abdominal pain COMPARISON: None Available. TECHNIQUE: CT of the abdomen and pelvis performed following IV administration of iodinated contras t. This exam was performed according to our departmental dose-optimization program, which includes au tomated exposure control, adjustment of the mA and/or kV according to patient size and/or use of iter ative reconstruction technique. FINDINGS: Lung Bases: The visualized lung bases are clear. Bones: No destructive bone lesions identified. Abdomen: Liver: Hepatomegaly. Small hypodensity in the right hepatic lobe may represent a small cyst Gallbladder: No calcified gallstones. Spleen, Pancreas, and Adrenal Glands: Splenomegaly. Adrenal glands and pancreas are unremarkable. Kidneys: No hydronephrosis or obstructing calculus. Vasculature: The aorta and IVC have normal caliber and position. The portal vein is patent. The pro ximal visceral and renal arteries are patent. Stomach: The stomach and duodenum have normal course. Other: No free intraperitoneal air. Small amount of free fluid. Pelvis: Bladder: Urinary bladder is unremarkable. Bowel: Mild prominence of the small bowel without distal decompression. Moderate amount of stool. Appendix: Normal appendix. Pelvis: Uterus is not enlarged. IMPRESSION: 1. Mild prominence of the small bowel without distal decompression. These findings cou ld be seen with nonspecific enteritis. 2. Small amount of free fluid. 3. Hepatosplenomegaly. Electronically signed by: Gera Ambrose 11/10/2021 11:45 PM CDT Due to temporary technical issues with the PACS/Fluency reporting system, reports are being signed by the in house radiologists without review as a courtesy to insure prompt reporting. The interpreting radiologist is fully responsible for the content of the report.
== END 2021-11-11 00:48 | disposition home or self-care (01) ==
LOC: RT 19:26 → ER 11-11 00:48
DX: N39.0 Urinary tract infection, site not specified (principal); F31.9 Bipolar disorder, unspecified; Z88.6 Allergy status to analgesic agent
CPT/HCPCS: 87088; 85025; 87086; 80048; 36415; 86900; 81025; 86901; 84702; 87077; 87186; 74177; 76817; 96374; 99284; Q9967; 81003; 81015

== ENCOUNTER 2021-12-28 22:12 | Emergency (ER) | payer OTHER ==
--- OUTSIDE RECORDS SUMMARY | 2021-12-28 22:20 | XMS REPORT | Continuity of Care Document ---
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 neoplasm of cervix (procedure) [code = 166598490] Future Scheduled Test INFLUENZA VACCINE [facility] [code = INFLUENZA VACCINE] Future Scheduled Test CHLAMYDIA SCREENING [facility] [code = CHLAMYDIA SCREENING] Future Scheduled Test COVID-19 VACCINE (1) [facility] [code = COVID-19 VACCINE (1)] Future Appointment 2022-01-08 [facility] [address] [facility] [address]; [place] [address] Instructions [facility] Encounters Start End Encounter Admission Attending Care Care Encounter Source Date/Time Date/Time Type Type Clinicians Facility Department ID 2021-10-23 2021-10-23 [place] [id number] -2021 [facility] 02:43:00 02:43:00 0711 Medical Group 2021-10-23 2021-10-23 Eh [facility] [place] - [id number] [facility] 00:00:00 00:00:00 Lizbet Bean, Medical Medical CARTOGRAPHIC ENGINEER: 600 [facility] [address], [place] [address] , Ph. 2021-10-05 2021-10-05 [place] [id number] -2021 [facility] 09:37:00 09:37:00 0623 [facility] 2021-10-05 2021-10-05 Eh [facility] [place] - [id number] [facility] 00:00:00 00:00:00 Lizbet Bean, Medical Medical CARTOGRAPHIC ENGINEER: 600 [facility] [address], [place] [address] , Ph. 2021-10-04 2021-10-04 [place] [id number] -2021 [facility] 04:46:00 04:46:00 0622 [facility] 2021-09-14 2021-09-14 [place] [id number] [facility] 04:46:00 04:46:00 0602 Medical Group 2021-09-14 2021-09-14 Maritza DU [place] - [id number] [facility] 00:00:00 00:00:00 Discovery Balwinder ACID STRENGTH INSPECTOR-C: 600 [facility] - [address], [facility], [facility] [address] , Ph. 2021-09-05 2021-09-05 Outpatient Yan_W [facility] [id number] 022 [facility] 10:23:00 10:23:00 0524 [facility] Group 2021-09-05 2021-09-05 YASMANY Hill [place] - [id number] [facility] 00:00:00 00:00:00 MD: Harika Daly [facility], [facility] [address], [facility], [facility] [address] , Ph. 2021-08-24 2021-08-24 Outpatient Yan_W [facility] [id number] [facility] 10:31:00 10:31:00 0512 Medical Group 2021-08-14 2021-08-14 Outpatient Hawkins_M [facility] [id number] -2021 [facility] 04:26:00 04:26:00 0502 Medical Group 2021-08-14 2021-08-14 Outpatient Hawkins_M [facility] [id number] -2021 [facility] 04:26:00 04:26:00 0509 Medical Group 2021-07-27 2021-07-27 Outpatient Hawkins_M [facility] [id number] -2021 [facility] 12:50:00 12:50:00 0414 da [facility] Group 2021-07-27 2021-07-27 Outpatient AMBREEN_BEENA [facility] [id number] -2021 [facility] 02:53:00 02:53:00 JASPAL 0414 [facility] 2021-07-27 2021-07-27 Eh SANDY [place] - [id number] M [facility] 00:00:00 00:00:00 Lizbet Bean Medical Medical CARTOGRAPHIC ENGINEER: [address] [facility] [address], [place] [address] , Ph. 2021-07-25 2021-07-25 [place] [id number] 022 [facility] 11:17:00 11:17:00 0412 Medical [facility] 2021-07-25 2021-07-25 [place] [id number] 022 [facility] 11:17:00 11:17:00 0413 Medical [facility] 2021-07-25 2021-07-25 Loki Ramos MM [place] - [id number] [facility] 00:00:00 00:00:00 MD: Harika [place] [address], [facility], [facility] [address] , Ph. 2021-07-24 2021-07-24 [place] [id number] -2021 [facility] 02:56:00 02:56:00 0411 [facility] 2021-07-24 2021-07-24 Eh MM [place] - [id number] M [facility] 00:00:00 00:00:00 Lizbet Bean Medical Medical CARTOGRAPHIC ENGINEER: [address] [address], [place] [address] , Ph. 2021-07-12 2021-07-12 [place] [id number] -2021 [facility] 03:56:00 03:56:00 0330 Medical [facility] 2021-07-12 2021-07-12 [place] [id number] -2021 [facility] 03:56:00 03:56:00 0331 Medical Group 2021-07-12 2021-07-12 Eh MMG [place] - [id number] M [facility] 00:00:00 00:00:00 Lizbet Bean Medical Medical CARTOGRAPHIC ENGINEER: [address] [address], [place] [address] , Ph. 2021-06-21 2021-06-21 [id number]2021 [facility] 04:09:00 04:09:00 0309 Medical Group 2021-06-21 2021-06-21 Eh JADE [place] - [id number] M [facility] 00:00:00 00:00:00 Lizbet Bean Medical Medical CARTOGRAPHIC ENGINEER: 600 [facility] [address], [place] [address] , Ph. 2021-06-02 2021-06-02 [facility] [id number] -2021 [facility] 03:48:00 03:48:00 0218 Medical Group 2021-06-02 2021-06-02 Eh SANDY [place] - [id number] M [facility] 00:00:00 00:00:00 Lizbet Bean Medical Medical CARTOGRAPHIC ENGINEER: 600 [facility] [address], [place] [address] , Ph. 2021-05-22 2021-05-22 [facility] [id number] -2021 [facility] 12:37:00 12:37:00 0207 Medical Group 2021-05-22 2021-05-22 Eh SANDY [place] - [id number] M [facility] 00:00:00 00:00:00 Lizbet Bean Medical Medical CARTOGRAPHIC ENGINEER: 600 [facility] [address], [place] [address] , Ph. 2021-05-10 2021-05-10 Outpatient LEANNREEN_BEENA Deutsch [facility] 05:02:00 05:02:00 JASPAL 0126 [facility] 2021-05-09 2021-05-09 [facility] [id number] -2021 [facility] 11:18:00 11:18:00 0125 Medical Group 2021-05-09 2021-05-09 Eh MMG [place] - [id number] M [facility] 00:00:00 00:00:00 Lizbet Bean [facility] Medical CARTOGRAPHIC ENGINEER: [address] [facility] [address], [place] [address] , Ph. 2021-04-12 2021-04-12 Outpatient Hawkins_M MMG MMG [id number] -2021 [place] 04:07:00 04:07:00 0124 da [facility] 2021-04-12 2021-04-12 Outpatient Hawkins_M MMG MMG [id number] -2021 [place] 04:07:00 04:07:00 0121 [facility] 2021-03-23 2021-03-23 Outpatient Hawkins_M MMG MMG [id number] -2020 [facility] 04:37:00 04:37:00 1209 da [facility] Group 2021-03-23 2021-03-23 Outpatient Hawkins_M MMG MMG [id number] -2020 [place] 04:37:00 04:37:00 1216 da [facility] Group 2021-03-23 2021-03-23 Outpatient Hawkins_M MMG MMG [id number] -2020 [place] 04:37:00 04:37:00 1228 da [facility] 2021-03-23 2021-03-23 Eh MMG [place] - [id number] M [facility] 00:00:00 00:00:00 Lizbet Bean Medical Medical CARTOGRAPHIC ENGINEER: [address] [facility] [address], [place] [address] , Ph. 2020-05-19 2020-05-19 Outpatient Hawkins_M MMG MMG [id number] -2020 [place] 03:02:00 03:02:00 0209 da [facility] 2020-05-19 2020-05-19 Outpatient Hawkins_M MMG MMG [id number] -2020 [place] 03:02:00 03:02:00 0224 da [facility] 2020-05-19 2020-05-19 Outpatient Hawkins_M MMG MMG [id number] [facility] 03:02:00 03:02:00 0204 Medical Group 2020-05-18 2020-05-18 Outpatient Rutledge_L MMG MMG [id number] [facility] 03:00:00 03:00:00 0203 Medical Group 2020-03-02 2020-03-02 Outpatient Rutledge_L MMG MMG [id number] [place] 02:24:00 02:24:00 1118 Medical Group 2020-01-08 2020-01-08 Outpatient AMBREEN_[place] [id number] [facility] 01:41:00 01:41:00 HANA 0925 [facility] 2020-01-08 2020-01-08 Outpatient AMBREEN_[place] [id number] [facility] 01:41:00 01:41:00 HANA 1012 [facility] 2020-01-08 2020-01-08 Outpatient AMBREEN_[place]AR [place] [id number] [facility] 01:41:00 01:41:00 HANA 1209 [facility] 2019-12-23 2019-12-23 Outpatient Rutledge_L MMG MMG [id number] [place] 12:21:00 12:21:00 1008 Medical Group 2019-10-31 2019-10-31 Outpatient Rutledge_L MMG MMG [id number] [place] 07:51:00 07:51:00 0718 Medical Group 2019-10-30 2019-10-30 Outpatient Rutledge_L MMG MMG [id number] [place] 04:04:00 04:04:00 0717 Medical Group 2019-10-30 2019-10-30 Luis Felipe MMG [place] - [id number] M [facility] 00:00:00 00:00:00 Discovery alida Hernadez MD: [address] [place] [address] , Ph. [phone] 2019-09-02 2019-09-02 Outpatient Rutledge_L MMG MMG [id number] [place] 05:24:00 05:24:00 0520 da [facility] 2019-09-02 2019-09-02 Outpatient Rutledge_L MMG MMG [id number] [place] 05:24:00 05:24:00 0616 [facility] 2019-09-02 2019-09-02 Outpatient Rutledge_L MMG MMG [id number] [place] 05:24:00 05:24:00 0707 [facility] 2019-09-02 2019-09-02 Outpatient Rutledge_L MMG MMG [id number] [place] 05:24:00 05:24:00 0716 [facility] 2019-07-07 2019-07-07 Outpatient Rutledge_L MMG MMG [id number] [place] 09:58:00 09:58:00 0324 [facility] 2019-07-07 2019-07-07 Outpatient Rutledge_L MMG MMG [id number] [place] 09:58:00 09:58:00 0326 Medical Group 2019-07-01 2019-07-01 Outpatient Rutledge_L MMG MMG [id number] [place] 08:57:00 08:57:00 0318 [facility] 2019-07-01 2019-07-01 Anabel MMG [place] - [id number] M [facility] 00:00:00 00:00:00 George Hoffman Medical Medica toy MD: [address] [address] , Ph. [phone] 2019-06-11 2019-06-11 Outpatient Rutledge_L MMG MMG [id number] [place] 07:31:00 07:31:00 0227 [facility] 2019-06-10 2019-06-10 Outpatient Rutledge_L MMG MMG [id number] [place] 01:13:00 01:13:00 0226 [facility] 2019-06-10 2019-06-10 Anabel MMG [place] - [id number] M [facility] 00:00:00 00:00:00 George Hoffman Medical Medica toy MD: [address] [address] , Ph. [phone] 2019-06-09 2019-06-09 Outpatient Rutledge_L MMG MMG [id number] [place] 10:05:00 10:05:00 0225 [facility] 2019-05-26 2019-05-26 Outpatient Rutledge_L MMG MMG [id number] [place] 10:08:00 10:08:00 0218 [facility] 2019-05-24 2019-05-24 Outpatient Rutledge_L MMG MMG [id number] [place] 01:23:00 01:23:00 0209 [facility] 2019-05-20 2019-05-20 Outpatient Rutledge_L MMG MMG [id number] [place] 04:23:00 04:23:00 0205 da [facility] 2019-05-20 2019-05-20 Anabel MMG [place] - [id number] M [facility] 00:00:00 00:00:00 George Hoffman Medical Medica toy MD: [address] [place] [address] , Ph. [phone] 2019-05-15 2019-05-15 Outpatient Rutledge_L MMG MMG [id number] [place] 10:18:00 10:18:00 0204 da [facility] 2019-05-12 2019-05-12 Outpatient Rutledge_L MMG MMG [id number] [place] 02:38:00 02:38:00 0128 Medical Group 2019-05-02 2019-05-02 Outpatient Rutledge_L MMG MMG [id number] [place] 10:43:00 10:43:00 0118 Medical Group 2019-04-28 2019-04-28 Outpatient Rutledge_L MMG MMG [id number] [place] 11:48:00 11:48:00 0114 Medical Group 2019-04-28 2019-04-28 Luis Felipe MMG [place] - [id number] M [facility] 00:00:00 00:00:00 Discovery alida Hernadez MD: [address] [place] [address] , Ph. [phone] 2019-04-27 2019-04-27 Outpatient Rutledge_L MMG MMG [id number] [place] 11:34:00 11:34:00 0113 da Medical Group 2019-04-26 2019-04-26 Outpatient Rutledge_L MMG MMG [id number] [place] 12:05:00 12:05:00 0112 da [facility] Group 2019-04-24 2019-04-24 Outpatient Rutledge_L MMG MMG [id number] [place] 04:21:00 04:21:00 0110 Medical Group 2019-04-24 2019-04-24 Harper Ewing MM [place] - [id number] [facility] 00:00:00 00:00:00 Discovery alida Strange WHNP: [address] [address] , Ph. [phone] 2019-04-23 2019-04-23 Outpatient Rutledge_L MMG MMG [id number] [place] 12:43:00 12:43:00 0109 Medical Group 2019-04-23 2019-04-23 Luis Felipe MM [place] - [id number] M [facility] 00:00:00 00:00:00 Discovery alida Hernadez MD: [address] [address] , Ph. [phone] 2019-04-19 2019-04-19 Outpatient Rutledge_L MMG MMG [id number] [place] 09:06:00 09:06:00 0105 Medical Group 2019-04-19 2019-04-19 Outpatient Rutledge_L MMG MMG [id number] [place] 09:06:00 09:06:00 0108 Medical Group 2019-04-16 2019-04-16 Outpatient Rutledge_L MMG MMG [id number] [place] 05:03:00 05:03:00 010 Medical Group 2019-04-16 2019-04-16 Outpatient Rutledge_L MMG MMG [id number] [place] 05:03:00 05:03:00 0103 Medical Group 2019-04-16 2019-04-16 Lius Felipe [facility] [place] - [id number] M [facility] 00:00:00 00:00:00 Discovery alida Hernadez MD: [address] [place] [address] , Ph. [phone] 2019-04-02 2019-04-02 Anabel SANDY [place] - [id number] M [facility] 00:00:00 00:00:00 George Hoffman Medical Medica toy MD: [address] [place] [address] , Ph. [phone] 2019-03-30 2019-03-30 Anabel SANDY [place] - [id number] M [facility] 00:00:00 00:00:00 George Hoffman Medical Medica toy MD: [address] [place] [address] , Ph. [phone] 2019-03-27 2019-03-27 Anabel [facility] [place] - [id number] M [facility] 00:00:00 00:00:00 George Hoffman Medical Medica toy MD: [address] [place] [address] , Ph. [phone] 2019-03-09 2019-03-09 Harper Ewing [facility] [place] - [id number] [place] 00:00:00 00:00:00 Discovery alida Strange WHNP: [facility] Medical Medic[address] [address] , Ph. [phone] 2019-03-04 2019-03-04 Luis Felipe SANDY [place] - [id number] M [facility] 00:00:00 00:00:00 Discovery alida Hernadez MD: [address] [place] [address] , Ph. [phone] Results Test Description Test Time Test Comments Results Result Comments Source Urinalysis complete W Reflex Culture panel - Urine 2021-09-14 3 07:44:00 Test Item Value Reference Range Interpretation Comme nts Color of Urine by Auto (test code = 30028-1) lt. yellow Appearance of Urine (test code = 5767-9) SL cloudy clear Glucose [Mass/volume] in Urine (test code = 2350-7) negative ne gative bilirubin, urine (test code = bilirubin, urine) negative negati ve ketone, urine (test code = ketone, urine) negative negative Specific gravity of Urine by Automated test strip (test 1.015 1.003-1.030 code = 06224-8) Hemoglobin [Presence] in Urine by Test strip (test code = small negative H 5794-3) pH of Urine (test code = 2756-5) 6.500 5-9 protein urine (UA) (test code = protein urine (UA)) negative ne gative Urobilinogen [Presence] in Urine (test code = 15997-4) 0.2 E.U./dL 0.2-1.0 Nitrite [Presence] in Urine by Test strip (test code = positive negative 5802-4) urine leukocyte esterase (test code = urine leukocyte =1 negative H esterase) Erythrocytes [Presence] in Urine (test code = 65984-6) =4-6 0-5 H WBC, urine (test code = WBC, urine) =5-9 0-5 H bacteria, urine (test code = bacteria, urine) full field none det ect H Casts [#/area] in Urine sediment by Automated count (test =2-5 none detect code = 40092-1) urine culture added? (test code = urine culture added?) yes squamous epithelial cell urine (test code = squamous =6-10 0 -5 epithelial cell urine) mucus, urine (test code = mucus, urine) =1 none detect [facility] W Auto Differential panel - [id number] 07:44:00 Test Item Value Reference Range Interpretation Comments white blood count (test code = 6.7 K/uL 4.0-11.5 white blood count) red blood count (test code = red 4.89 M/uL 3.80-5.20 blood count) hemoglobin (test code = 12.5 g/dL 10.5-15.7 hemoglobin) hematocrit (test code = 40.6 % 34.0-50.0 hematocrit) MCV [Entitic volume] (test code = 83.0 fL 86.0-100.0 L 40665-3) mean corpuscular hemoglobin (test 25.6 pg 26.2-33.4 L code = mean corpuscular hemoglobin) mean corpuscular HGB conc (test 30.8 g/dL 30.0-34.0 code = mean corpuscular HGB conc) red cell distribution width (test 14.5 % 12.0-15.5 code = red cell distribution width) platelet count (test code = 264 K/uL 165-450 platelet count) mean platelet volume (test code = 11.5 fL 9.4-12.6 mean platelet volume) Segmented neutrophils/100 51.5 % 44.4-80.1 leukocytes in Blood (test code = 00965-4) Immature granulocytes [#/volume] 0.01 K/uL 0.00-0.03 in Blood (test code = 73108-8) lymphocyte% (test code = 38.8 % 10.0-50.0 lymphocyte%) mono % (test code = mono %) 6.9 % 3.6-12.0 eos % (test code = eos %) 1.5 % 0.0-5.4 basophil % (test code = basophil 1.1 % 0.1-1.2 %) Band form neutrophils [#/volume] 3.43 K/uL 1.56-6.13 in Blood (test code = 96753-7) Lymphocytes [#/volume] in Specimen 2.58 K/uL 1.18-3.74 by Automated count (test code = 76932-2) mono # (test code = mono #) 0.46 K/uL 0.24-0.86 eos # (test code = eos #) 0.10 K/uL 0.04-0.36 basophil # (test code = basophil 0.07 K/uL 0.01-0.08 #) NRBC% (test code = NRBC%) 0 /100 WBC 0-0.2 NRBC# (test code = NRBC#) 0 K/uL [facility] - Serum or Plasma 2021-10-05 07:44:00 Test Item Value Reference Range Interpretation Comments glucose (test code = glucose) 83 mg/dL 74-106 Urea nitrogen [Mass/volume] in 11 mg/dL 6-20 Serum or Plasma (test code = 3094-0) osmolality calculated,serum (test 280 mOsm/kg 280-300 code = osmolality calculated,serum) creatinine (test code = 0.69 mg/dL 0.50-0.90 creatinine) glomerular filtration rate (test >60.00 code = glomerular filtration rate) Urea nitrogen/Creatinine [Mass 15.9 12.0-20.0 Ratio] in Serum or Plasma (test code = 3097-3) sodium level (test code = sodium 141 mmol/L 135-145 level) Potassium [Moles/volume] in Body 4.4 mmol/L 3.5-5.2 fluid (test code = 2821-7) chloride level (test code = 103 mmol/L 98-108 chloride level) CO2 (test code = CO2) 28 mmol/L 21-32 anion gap (test code = anion gap) 14.4 mEq/L 12.0-20.0 calcium level (test code = 9.9 mg/dL 8.6-10.0 calcium level) total protein (test code = total 7.3 g/dL 6.6-8.7 protein) albumin (test code = albumin) 4.8 g/dL 3.5-5.2 globulin (test code = globulin) 2.5 g/dL 1.5-4.5 A/G ratio (test code = A/G ratio) 1.9 >1.0 bilirubin,total (test code = 0.3 mg/dL 0.0-1.2 bilirubin,total) AST/SGOT (test code = AST/SGOT) 13 U/L 15-32 L Alanine aminotransferase 8 U/L 0-33 [Enzymatic activity/volume] in Serum or Plasma (test code = 1742-6) Alkaline phosphatase [Enzymatic 84 U/L 35-105 activity/volume] in Serum or Plasma (test code = 6768-6) [facility] - Serum or [id number] 07:44:00 Test Item Value Reference Range Interpretation Comments cholesterol level (test code = 145 mg/dL 150-200 L cholesterol level) triglycerides level (test code = 57 mg/dL <150 triglycerides level) HDL cholesterol (test code = HDL 66 mg/dL >65 cholesterol) LDL cholesterol direct (test code = 69 mg/dL <100 LDL cholesterol direct) cholesterol risk ratio (test code = 2.196 cholesterol risk ratio) [facility] W Reflex Culture panel - Urine 2021-10-05 07:44:00 Test Item Value Reference Range Interpretation Comments Color of Urine by Auto (test code lt. yellow = 70787-2) Appearance of Urine (test code = SL cloudy clear 5767-9) Glucose [Mass/volume] in Urine negative negative (test code = 2350-7) bilirubin, urine (test code = negative negative bilirubin, urine) ketone, urine (test code = negative negative ketone, urine) Specific gravity of Urine by 1.015 1.003-1.030 Automated test strip (test code = 95685-0) Hemoglobin [Presence] in Urine by small negative H Test strip (test code = 5794-3) pH of Urine (test code = 2756-5) 6.500 5-9 protein urine (UA) (test code = negative negative protein urine (UA)) Urobilinogen [Presence] in Urine 0.2 E.U./dL 0.2-1.0 (test code = 42420-3) Nitrite [Presence] in Urine by positive negative Test strip (test code = 5802-4) urine leukocyte esterase (test =1 negative H code = urine leukocyte esterase) Erythrocytes [Presence] in Urine =4-6 0-5 H (test code = 58075-8) WBC, urine (test code = WBC, =5-9 0-5 H urine) bacteria, urine (test code = full field none detect H bacteria, urine) Casts [#/area] in Urine sediment =2-5 none detect by Automated count (test code = 47086-6) urine culture added? (test code = yes urine culture added?) squamous epithelial cell urine =6-10 0-5 (test code = squamous epithelial cell urine) mucus, urine (test code = mucus, =1 none detect urine) [facility] W Auto Differential panel - [id number] 07:44:00 Test Item Value Reference Range Interpretation Comments white blood count (test code = 6.7 K/uL 4.0-11.5 white blood count) red blood count (test code = red 4.89 M/uL 3.80-5.20 blood count) hemoglobin (test code = 12.5 g/dL 10.5-15.7 hemoglobin) hematocrit (test code = 40.6 % 34.0-50.0 hematocrit) MCV [Entitic volume] (test code = 83.0 fL 86.0-100.0 L 20253-3) mean corpuscular hemoglobin (test 25.6 pg 26.2-33.4 L code = mean corpuscular hemoglobin) mean corpuscular HGB conc (test 30.8 g/dL 30.0-34.0 code = mean corpuscular HGB conc) red cell distribution width (test 14.5 % 12.0-15.5 code = red cell distribution width) platelet count (test code = 264 K/uL 165-450 platelet count) mean platelet volume (test code = 11.5 fL 9.4-12.6 mean platelet volume) Segmented neutrophils/100 51.5 % 44.4-80.1 leukocytes in Blood (test code = 85838-6) Immature granulocytes [#/volume] 0.01 K/uL 0.00-0.03 in Blood (test code = 65869-3) lymphocyte% (test code = 38.8 % 10.0-50.0 lymphocyte%) mono % (test code = mono %) 6.9 % 3.6-12.0 eos % (test code = eos %) 1.5 % 0.0-5.4 basophil % (test code = basophil 1.1 % 0.1-1.2 %) Band form neutrophils [#/volume] 3.43 K/uL 1.56-6.13 in Blood (test code = 80727-8) Lymphocytes [#/volume] in Specimen 2.58 K/uL 1.18-3.74 by Automated count (test code = 93872-6) mono # (test code = mono #) 0.46 K/uL 0.24-0.86 eos # (test code = eos #) 0.10 K/uL 0.04-0.36 basophil # (test code = basophil 0.07 K/uL 0.01-0.08 #) NRBC% (test code = NRBC%) 0 /100 WBC 0-0.2 NRBC# (test code = NRBC#) 0 K/uL [facility] - [facility] or Plasma 2021-10-05 07:44:00 Test Item Value Reference Range Interpretation Comments glucose (test code = glucose) 83 mg/dL 74-106 Urea nitrogen [Mass/volume] in 11 mg/dL 6-20 Serum or Plasma (test code = 3094-0) osmolality calculated,serum (test 280 mOsm/kg 280-300 code = osmolality calculated,serum) creatinine (test code = 0.69 mg/dL 0.50-0.90 creatinine) glomerular filtration rate (test >60.00 code = glomerular filtration rate) Urea nitrogen/Creatinine [Mass 15.9 12.0-20.0 Ratio] in Serum or Plasma (test code = 3097-3) sodium level (test code = sodium 141 mmol/L 135-145 level) Potassium [Moles/volume] in Body 4.4 mmol/L 3.5-5.2 fluid (test code = 2821-7) chloride level (test code = 103 mmol/L 98-108 chloride level) CO2 (test code = CO2) 28 mmol/L 21-32 anion gap (test code = anion gap) 14.4 mEq/L 12.0-20.0 calcium level (test code = 9.9 mg/dL 8.6-10.0 calcium level) total protein (test code = total 7.3 g/dL 6.6-8.7 protein) albumin (test code = albumin) 4.8 g/dL 3.5-5.2 globulin (test code = globulin) 2.5 g/dL 1.5-4.5 A/G ratio (test code = A/G ratio) 1.9 >1.0 bilirubin,total (test code = 0.3 mg/dL 0.0-1.2 bilirubin,total) AST/SGOT (test code = AST/SGOT) 13 U/L 15-32 L Alanine aminotransferase 8 U/L 0-33 [Enzymatic activity/volume] in Serum or Plasma (test code = 1742-6) Alkaline phosphatase [Enzymatic 84 U/L 35-105 activity/volume] in Serum or Plasma (test code = 6768-6) [facility] 1995 [facility] - Serum or [id number] 07:44:00 Test Item Value Reference Range Interpretation Comments cholesterol level (test code = 145 mg/dL 150-200 L cholesterol level) triglycerides level (test code = 57 mg/dL <150 triglycerides level) HDL cholesterol (test code = HDL 66 mg/dL >65 cholesterol) LDL cholesterol direct (test code = 69 mg/dL <100 LDL cholesterol direct) cholesterol risk ratio (test code = 2.196 cholesterol risk ratio) [facility] CenterBacteria identified in Urine by [id number] 07:44:00Bacteria Ur [facility], [id number] 07:44:00 Test Item Value Reference Range Interpretation Comments Gentamicin [Susceptibility] by <=2 Minimum inhibitory concentration (GUSTAVO) (test code = 267-5) Ampicillin [Susceptibility] by >16 Minimum inhibitory concentration (GUSTAVO) (test code = 28-1) Cefazolin [Susceptibility] by 2 ug/mL Minimum inhibitory concentration (GUSTAVO) (test code = 76-0) Trimethoprim+Sulfamethoxazole =0.5 [Susceptibility] by Minimum inhibitory concentration (GUSTAVO) (test code = 516-5) Tetracycline [Susceptibility] by <=2 Minimum inhibitory concentration (GUSTAVO) (test code = 496-0) Amoxicillin+Clavulanate =4/2 [Susceptibility] by Minimum inhibitory concentration (GUSTAVO) (test code = 20-8) Tobramycin [Susceptibility] by <=2 Minimum inhibitory concentration (GUSTAVO) (test code = 508-2) Nitrofurantoin [Susceptibility] by 64 ug/mL Minimum inhibitory concentration (GUSTAVO) (test code = 363-2) cefOXitin [Susceptibility] by <=4 Minimum inhibitory concentration (GUSTAVO) (test code = 116-4) levoFLOXacin [Susceptibility] by <=0.5 Minimum inhibitory concentration (GUSTAVO) (test code = 03690-7) cefTAZidime [Susceptibility] by <=2 Minimum inhibitory concentration (GUSTAVO) (test code = 133-9) cefTRIAXone [Susceptibility] by <=1 Minimum inhibitory concentration (GUSTAVO) (test code = 141-2) Ciprofloxacin [Susceptibility] by <=0.25 Minimum inhibitory concentration (GUSTAVO) (test code = 185-9) Ampicillin+Sulbactam =8/4 [Susceptibility] by Minimum inhibitory concentration (GUSTAVO) (test code = 32-3) Ertapenem [Susceptibility] by <=0.25 Minimum inhibitory concentration (GUSTAVO) (test code = 02770-5) Aztreonam [Susceptibility] by <=2 Minimum inhibitory concentration (GUSTAVO) (test code = 44-8) Cefepime [Susceptibility] by Minimum <=1 inhibitory concentration (GUSTAVO) (test code = 6644-9) Meropenem [Susceptibility] by <=0.5 Minimum inhibitory concentration (GUSTAVO) (test code = 6652-2) Moxifloxacin [Susceptibility] by <=1 Minimum inhibitory concentration (GUSTAVO) (test code = 21252-7) Amikacin [Susceptibility] by Minimum <=8 inhibitory concentration (GUSTAVO) (test code = 12-5) Piperacillin+Tazobactam =4/4 [Susceptibility] by Minimum inhibitory concentration (GUSTAVO) (test code = 412-7) Ceftaroline [Susceptibility] by <=0.25 Minimum inhibitory concentration (GUSTAVO) (test code = 16590-0) Tigecycline [Susceptibility] by 2 ug/mL Minimum inhibitory concentration (GUSTAVO) (test code = 56039-9) [facility] CenterErythrocyte sedimentation [id number] 00:00:00 Test Item Value Reference Range Interpretation Comments erythrocyte sedimentation rate (test 8 mm/HR 0.00-20 code = erythrocyte sedimentation rate) [facility] CenterHemoglobin A1c [Mass/volume] in [id number] 00:00:00 Test Item Value Reference Range Interpretation Comments Hemoglobin A1c [Mass/volume] in Blood 5.4 % 4.0-6.0 (test code = 86103-4) [facility] CenterThyrotropin [Units/volume] in Serum or [id number] 00:00:00 Test Item Value Reference Range Interpretation Comments Thyrotropin [Units/volume] in 0.94 uIU/mL 0.36-3.74 Serum or Plasma (test code = 3016-3) [facility] CenterThyroxine (T4) [Mass/volume] in Serum or [id number] 00:00:00 Test Item Value Reference Range Interpretation Comments T4 (test code = T4) 7.1 ug/dL 4.5-11.7 [facility] CenterErythrocyte sedimentation [id number] 00:00:00 Test Item Value Reference Range Interpretation Comments erythrocyte sedimentation rate (test 8 mm/HR 0.00-20 code = erythrocyte sedimentation rate) [facility] CenterHemoglobin A1c/Hemoglobin.total in [id number] 00:00:00 Test Item Value Reference Range Interpretation Comments Hemoglobin A1c [Mass/volume] in Blood 5.4 % 4.0-6.0 (test code = 95573-5) [facility] CenterThyrotropin [Units/volume] in Serum or [id number] 00:00:00 Test Item Value Reference Range Interpretation Comments Thyrotropin [Units/volume] in 0.94 uIU/mL 0.36-3.74 Serum or Plasma (test code = 3016-3) [facility] CenterThyroxine (T4) [Mass/volume] in Serum or [id number] 00:00:00 Test Item Value Reference Range Interpretation Comments T4 (test code = T4) 7.1 ug/dL 4.5-11.7 [facility] Centerrapid strep group A, [id number] 17:41:17 Test Item Value Reference Range Interpretation Comments Strep Result (test code = Strep negative Result) [facility], [id number] 17:41:17 Test Item Value Reference Range Interpretation Comments Strep Result (test code = Strep negative Result) [facility] CenterInfluenza virus A and B and SARS-CoV+SARS-CoV-2 (COVID- 19) Ag panel - Upper respiratory specimen by Rapid [id number] 16:52:00 Test Item Value Reference Range Interpretation Comments RAPID SARS COV (test code = RAPID negative SARS COV) RAPID FLU A (test code = RAPID FLU negative A) RAPID FLU B (test code = RAPID FLU negative B) [facility] CenterInfluenza virus A and B and SARS-CoV+SARS-CoV-2 (COVID- 19) Ag panel - Upper respiratory specimen by Rapid [id number] 16:52:00 Test Item Value Reference Range Interpretation Comments RAPID SARS COV (test code = RAPID negative SARS COV) RAPID FLU A (test code = RAPID FLU negative A) RAPID FLU B (test code = RAPID FLU negative B) [facility] W Auto Differential panel - [id number] 10:41:00 Test Item Value Reference Range Interpretation Comments white blood count (test code = 8.4 K/uL 4.0-11.5 white blood count) red blood count (test code = red 5.53 M/uL 3.80-5.20 H blood count) hemoglobin (test code = 14.3 g/dL 10.5-15.7 hemoglobin) hematocrit (test code = 45.4 % 34.0-50.0 hematocrit) MCV [Entitic volume] (test code = 82.1 fL 86.0-100.0 L 45456-2) mean corpuscular hemoglobin (test 25.9 pg 26.2-33.4 L code = mean corpuscular hemoglobin) mean corpuscular HGB conc (test 31.5 g/dL 30.0-34.0 code = mean corpuscular HGB conc) red cell distribution width (test 12.8 % 12.0-15.5 code = red cell distribution width) platelet count (test code = 333 K/uL 165-450 platelet count) mean platelet volume (test code = 10.5 fL 9.4-12.6 mean platelet volume) Segmented neutrophils/100 53.8 % 44.4-80.1 leukocytes in Blood (test code = 30767-4) Immature granulocytes [#/volume] 0.02 K/uL 0.00-0.03 in Blood (test code = 72216-4) lymphocyte% (test code = 38.7 % 10.0-50.0 lymphocyte%) mono % (test code = mono %) 5.3 % 3.6-12.0 eos % (test code = eos %) 1.4 % 0.0-5.4 Basophils/100 leukocytes in 0.6 % 0.1-1.2 Specimen (test code = 51007-8) Band form neutrophils [#/volume] 4.53 K/uL 1.56-6.13 in Blood (test code = 14117-2) Lymphocytes [#/volume] in Specimen 3.27 K/uL 1.18-3.74 by Automated count (test code = 76077-6) mono # (test code = mono #) 0.45 K/uL 0.24-0.86 eos # (test code = eos #) 0.12 K/uL 0.04-0.36 basophil # (test code = basophil 0.05 K/uL 0.01-0.08 #) NRBC% (test code = NRBC%) 0 /100 WBC 0-0.2 NRBC# (test code = NRBC#) 0 K/uL [facility] CenterComprehensive [facility] 2000 panel - Serum or Plasma 2021-08-11 10:41:00 Test Item Value Reference Range Interpretation Comments glucose (test code = glucose) 95 mg/dL 74-106 Urea nitrogen [Mass/volume] in 9 mg/dL 6-20 Serum or Plasma (test code = 3094-0) osmolality calculated,serum (test 278 mOsm/kg 280-300 L code = osmolality calculated,serum) creatinine (test code = 0.67 mg/dL 0.50-0.90 creatinine) glomerular filtration rate (test >60.00 code = glomerular filtration rate) Urea nitrogen/Creatinine [Mass 13.4 12.0-20.0 Ratio] in Serum or Plasma (test code = 3097-3) sodium level (test code = sodium 140 mmol/L 135-145 level) Potassium [Moles/volume] in Body 3.7 mmol/L 3.5-5.2 fluid (test code = 2821-7) chloride level (test code = 101 mmol/L 98-108 chloride level) CO2 (test code = CO2) 26 mmol/L 21-32 anion gap (test code = anion gap) 16.7 mEq/L 12.0-20.0 calcium level (test code = 9.8 mg/dL 8.6-10.0 calcium level) total protein (test code = total 7.9 g/dL 6.6-8.7 protein) albumin (test code = albumin) 5.1 g/dL 3.5-5.2 globulin (test code = globulin) 2.8 g/dL 1.5-4.5 A/G ratio (test code = A/G ratio) 1.8 >1.0 bilirubin,total (test code = 0.3 mg/dL 0.0-1.2 bilirubin,total) AST/SGOT (test code = AST/SGOT) 19 U/L 15-32 Alanine aminotransferase 13 U/L 0-33 [Enzymatic activity/volume] in Serum or Plasma (test code = 1742-6) Alkaline phosphatase [Enzymatic 87 U/L 35-105 activity/volume] in Serum or Plasma (test code = 6768-6) [facility] CenterPT/[id number] 10:41:00 Test Item Value Reference Range Interpretation Comments prothrombin time (test code = 10.0 seconds 10.3-12.3 L prothrombin time) INR in Blood by Coagulation <0.94 assay (test code = 82374-2) [facility] CenterDifferential panel, method unspecified - [id number] 00:00:00NeutrophilsBandLymphocyteAtypical LymphMonocyteEosinophilBasophilMyelocyteBlastsAbs Neutrophil Count(Man)Abs Lymph Count (Man)Abs Monocyte Count (Man)Abs Eosinophil Count (Man)Abs Basophil Count (Man)Platelet EstimatePlatelet MorphologyAnisocytosisMacrocytosisStomatocyteToxic GranulationMaBatson Children's HospitalChoriogonadotropin ( test) [Presence] in Serum or [id number] 00:00:00 Test Item Value Reference Range Interpretation Comments Choriogonadotropin.beta subunit negative neg ( test) [Presence] in Serum or Plasma (test code = 2110-5) [facility] Centerpartial thromboplastin [id number] 00:00:00 Test Item Value Reference Range Interpretation Comments INR in Blood by Coagulation 27.6 seconds 22.5-37.0 assay (test code = 00249-4) [facility] CenterInfluenza virus A and B and SARS-CoV+SARS-CoV-2 (COVID- 19) Ag panel - Upper respiratory specimen by Rapid [id number] 14:30:06 Test Item Value Reference Range Interpretation Comments RAPID SARS COV (test code = RAPID negative SARS COV) RAPID FLU A (test code = RAPID FLU negative A) RAPID FLU B (test code = RAPID FLU negative B) [facility] CenterInfluenza virus A and B and SARS-CoV+SARS-CoV-2 (COVID- 19) Ag panel - Upper respiratory specimen by Rapid [id number] 14:30:06 Test Item Value Reference Range Interpretation Comments RAPID SARS COV (test code = RAPID negative SARS COV) RAPID FLU A (test code = RAPID FLU negative A) RAPID FLU B (test code = RAPID FLU negative B) [facility] GroupInfluenza virus A and B and SARS-CoV+SARS-CoV-2 (COVID- 19) Ag panel - Upper respiratory specimen by Rapid [id number] 14:30:06 Test Item Value Reference Range Interpretation Comments RAPID SARS COV (test code = RAPID negative SARS COV) RAPID FLU A (test code = RAPID FLU negative A) RAPID FLU B (test code = RAPID FLU negative B) [facility] Centerrapid strep group A, [id number] 14:29:58 Test Item Value Reference Range Interpretation Comments Strep Result (test code = Strep positive Result) [facility] Centerrapid strep group A, [id number] 14:29:58 Test Item Value Reference Range Interpretation Comments Strep Result (test code = Strep positive Result) [facility] Centerrapid strep group A, [id number] 14:29:58 Test Item Value Reference Range Interpretation Comments Strep Result (test code = Strep positive Result) [facility] Centerrapid strep group A, [id number] 15:38:01 Test Item Value Reference Range Interpretation Comments Strep Result (test code = Strep negative Result) [facility] Centerrapid strep group A, [id number] 15:38:01 Test Item Value Reference Range Interpretation Comments Strep Result (test code = Strep negative Result) [facility] Centerrapid strep group A, [id number] 15:38:01 Test Item Value Reference Range Interpretation Comments Strep Result (test code = Strep negative Result) [facility] Centerrapid strep group A, [id number] 15:38:01 Test Item Value Reference Range Interpretation Comments Strep Result (test code = Strep negative Result) [facility] Centerrapid [facility]rep group A, [id number] 15:56:00 Test Item Value Reference Range Interpretation Comments Strep Result (test code = Strep positive Result) [facility] Centerrapid strep group A, [id number] 15:56:00 Test Item Value Reference Range Interpretation Comments Strep Result (test code = Strep positive Result) [facility] CenterUrinalysis macro (dipstick) panel - [id number] 15:37:27 Test Item Value Reference Range Interpretation Comments Leukocytes (test code = Leukocytes) Trace Nitrite (test code = Nitrite) negative Urobilinogen (test code = 1 Urobilinogen) Protein (test code = Protein) Negative pH (test code = pH) 7.0 Blood (test code = Blood) Negative Specific [place] (test code = 1.020 Specific [place]) Ketone (test code = Ketone) Negative Bilirubin (test code = Bilirubin) Negative Glucose (test code = Glucose) Negative Appearance (test code = Appearance) Clear Color (test code = Color) Yellow [facility] W Auto Differential panel - [id number] 12:16:00 Test Item Value Reference Range Interpretation Comments white blood count (test code = 7.3 K/uL 4.0-11.5 white blood count) red blood count (test code = red 5.06 M/uL 3.80-5.20 blood count) hemoglobin (test code = 12.5 g/dL 10.5-15.7 hemoglobin) hematocrit (test code = 41.3 % 34.0-50.0 hematocrit) Erythrocyte mean corpuscular 81.6 fL 86-100 L volume [Entitic volume] (test code = 47379-7) mean corpuscular hemoglobin (test 24.7 pg 26.2-33.4 [...] 44.4-80.1 leukocytes in Blood (test code = 42428-5) Granulocytes Immature [#/volume] 0.0 K/uL 0.0-0.03 in Blood (test code = 23947-0) lymphocyte% (test code = 37.9 % 10.0-50.0 lymphocyte%) mono % (test code = mono %) 7.4 % 3.6-12.0 eos % (test code = eos %) 3.0 % 0.0-5.4 Basophils/100 leukocytes in 0.5 % 0.1-1.2 Unspecified specimen (test code = 02709-8) Neutrophils.band form [#/volume] 3.73 K/uL 1.56-6.13 in Blood (test code = 13744-7) Lymphocytes [#/volume] in 2.8 K/uL 1.18-3.74 Unspecified specimen by Automated count (test code = 17678-5) mono # (test code = mono #) 0.54 K/uL 0.24-0.86 eos # (test code = eos #) 0.22 K/uL 0.04-0.36 basophil # (test code = basophil 0.04 K/uL 0.01-0.08 #) NRBC% (test code = NRBC%) 0 /100 WBC 0-0.2 NRBC# (test code = NRBC#) 0 K/uL [facility] Centerdifferential panel, [id number] 12:16:00 NeutrophilsLymphocyteAtypical LymphMonocyteEosinophilBasophilPlatelet EstimateDifferential comment-PMaBatson Children's HospitalChoriogonadotropin.beta subunit [Units/volume] in Serum or [id number] 12:16:00 Test Item Value Reference Range Interpretation Comments HCG quantitative (test code = HCG <0.1 0-5 quantitative) [facility] CenterUrinalysis macro (dipstick) panel - [id number] 11:31:00 Test Item Value Reference Range Interpretation Comments Leukocytes (test code = Leukocytes) Large Nitrite (test code = Nitrite) negative Urobilinogen (test code = .2 Urobilinogen) Protein (test code = Protein) 30 pH (test code = pH) 8.0 Blood (test code = Blood) Small Specific [place] (test code = 1.020 Specific [place]) Ketone (test code = Ketone) Negative Bilirubin (test code = Bilirubin) Negative Glucose (test code = Glucose) Negative Appearance (test code = Appearance) Clear Color (test code = Color) Yellow [facility] CenterUrinalysis macro (dipstick) panel - [id number] 11:31:00 Test Item Value Reference Range Interpretation Comments Leukocytes (test code = Leukocytes) Large Nitrite (test code = Nitrite) negative Urobilinogen (test code = .2 Urobilinogen) Protein (test code = Protein) 30 pH (test code = pH) 8.0 Blood (test code = Blood) Small Specific [place] (test code = 1.020 Specific [place]) Ketone (test code = Ketone) Negative Bilirubin (test code = Bilirubin) Negative Glucose (test code = Glucose) Negative Appearance (test code = Appearance) Clear Color (test code = Color) Yellow [facility] CenterUrinalysis macro (dipstick) panel - [id number] 11:31:00 Test Item Value Reference Range Interpretation Comments Leukocytes (test code = Leukocytes) Large Nitrite (test code = Nitrite) negative Urobilinogen (test code = .2 Urobilinogen) Protein (test code = Protein) 30 pH (test code = pH) 8.0 Blood (test code = Blood) Small Specific [place] (test code = 1.020 Specific [place]) Ketone (test code = Ketone) Negative Bilirubin (test code = Bilirubin) Negative Glucose (test code = Glucose) Negative Appearance (test code = Appearance) Clear Color (test code = Color) [facility] - [id number] 05:43:00 Test Item Value Reference Range Interpretation [...] L volume [Entitic volume] (test code = 44259-5) mean corpuscular hemoglobin (test 25.3 pg 26.2-33.4 [...] 44.4-80.1 leukocytes in Blood (test code = 23424-1) Granulocytes Immature [#/volume] 0.1 K/uL 0.0-0.03 H in Blood (test code = 09017-8) lymphocyte% (test code = 26.4 % 10.0-50.0 lymphocyte%) mono % (test code = mono %) 6.4 % 3.6-12.0 eos % (test code = eos %) 0.7 % 0.0-5.4 Basophils/100 leukocytes in 0.2 % 0.1-1.2 Unspecified specimen (test code = 71841-6) Neutrophils.band form [#/volume] 8.32 K/uL 1.56-6.13 H in Blood (test code = 88230-9) Lymphocytes [#/volume] in 3.3 K/uL 1.18-3.74 Unspecified specimen by Automated count (test code = 30163-6) mono # (test code = mono #) 0.81 K/uL 0.24-0.86 eos # (test code = eos #) 0.09 K/uL 0.04-0.36 basophil # (test code = basophil 0.03 K/uL 0.01-0.08 #) NRBC% (test code = NRBC%) 0 /100 WBC 0-0.2 NRBC# (test code = NRBC#) 0 K/uL [facility] W Auto Differential panel - [id number] 05:43:00 Test Item Value Reference Range Interpretation [...] L volume [Entitic volume] (test code = 15608-6) mean corpuscular hemoglobin (test 25.3 pg 26.2-33.4 [...] 44.4-80.1 leukocytes in Blood (test code = 12137-7) Granulocytes Immature [#/volume] 0.1 K/uL 0.0-0.03 H in Blood (test code = 34192-9) lymphocyte% (test code = 26.4 % 10.0-50.0 lymphocyte%) mono % (test code = mono %) 6.4 % 3.6-12.0 eos % (test code = eos %) 0.7 % 0.0-5.4 Basophils/100 leukocytes in 0.2 % 0.1-1.2 Unspecified specimen (test code = 00806-6) Neutrophils.band form [#/volume] 8.32 K/uL 1.56-6.13 H in Blood (test code = 45613-9) Lymphocytes [#/volume] in 3.3 K/uL 1.18-3.74 Unspecified specimen by Automated count (test code = 97453-1) mono # (test code = mono #) 0.81 K/uL 0.24-0.86 eos # (test code = eos #) 0.09 K/uL 0.04-0.36 basophil # (test code = basophil 0.03 K/uL 0.01-0.08 #) NRBC% (test code = NRBC%) 0 /100 WBC 0-0.2 NRBC# (test code = NRBC#) 0 K/uL [facility] W Auto Differential panel - [id number] 04:53:00 Test Item Value Reference Range Interpretation Comments white blood count (test code = 9.5 K/uL 4.0-11.5 white blood count) red blood count (test code = red 3.83 M/uL 3.80-5.20 blood count) hemoglobin (test code = 9.7 g/dL 10.5-15.7 L hemoglobin) hematocrit (test code = 31.4 % 34.0-50.0 L hematocrit) Erythrocyte mean corpuscular 82.0 fL 86-100 L volume [Entitic volume] (test code = 47470-2) mean corpuscular hemoglobin (test 25.3 pg 26.2-33.4 [...] 44.4-80.1 leukocytes in Blood (test code = 89690-9) Granulocytes Immature [#/volume] 0.1 K/uL 0.0-0.03 H in Blood (test code = 37945-7) lymphocyte% (test code = 30.9 % 10.0-50.0 lymphocyte%) mono % (test code = mono %) 7.2 % 3.6-12.0 eos % (test code = eos %) 0.3 % 0.0-5.4 Basophils/100 leukocytes in 0.2 % 0.1-1.2 Unspecified specimen (test code = 37006-8) Neutrophils.band form [#/volume] 5.77 K/uL 1.56-6.13 in Blood (test code = 67667-4) Lymphocytes [#/volume] in 2.9 K/uL 1.18-3.74 Unspecified specimen by Automated count (test code = 12561-2) mono # (test code = mono #) 0.68 K/uL 0.24-0.86 eos # (test code = eos #) 0.03 K/uL 0.04-0.36 L basophil # (test code = basophil 0.02 K/uL 0.01-0.08 #) NRBC% (test code = NRBC%) 0 /100 WBC 0-0.2 NRBC# (test code = NRBC#) 0 K/uL [facility] CenterReagin Ab [Presence] in Serum by [id number] 04:53:00 Test Item Value Reference Range Interpretation Comments Reagin Ab [Presence] in Serum by nonreactive nonreactive RPR (test code = 92689-4) [facility] CenterHepatitis B virus surface Ag [Presence] in Serum 2019-04-30 04:53:00 Test Item Value Reference Range Interpretation Comments .hepatitis B surface antigen (test negative negative code = .hepatitis B surface antigen) [facility] W Auto Differential panel - [id number] 04:53:00 Test Item Value Reference Range Interpretation Comments white blood count (test code = 9.5 K/uL 4.0-11.5 white blood count) red blood count (test code = red 3.83 M/uL 3.80-5.20 blood count) hemoglobin (test code = 9.7 g/dL 10.5-15.7 L hemoglobin) hematocrit (test code = 31.4 % 34.0-50.0 L hematocrit) Erythrocyte mean corpuscular 82.0 fL 86-100 L volume [Entitic volume] (test code = 69065-9) mean corpuscular hemoglobin (test 25.3 pg 26.2-33.4 [...] 44.4-80.1 leukocytes in Blood (test code = 56477-7) Granulocytes Immature [#/volume] 0.1 K/uL 0.0-0.03 H in Blood (test code = 19319-7) lymphocyte% (test code = 30.9 % 10.0-50.0 lymphocyte%) mono % (test code = mono %) 7.2 % 3.6-12.0 eos % (test code = eos %) 0.3 % 0.0-5.4 Basophils/100 leukocytes in 0.2 % 0.1-1.2 Unspecified specimen (test code = 36089-4) Neutrophils.band form [#/volume] 5.77 K/uL 1.56-6.13 in Blood (test code = 19554-7) Lymphocytes [#/volume] in 2.9 K/uL 1.18-3.74 Unspecified specimen by Automated count (test code = 65067-5) mono # (test code = mono #) 0.68 K/uL 0.24-0.86 eos # (test code = eos #) 0.03 K/uL 0.04-0.36 L basophil # (test code = basophil 0.02 K/uL 0.01-0.08 #) NRBC% (test code = NRBC%) 0 /100 WBC 0-0.2 NRBC# (test code = NRBC#) 0 K/uL [facility] in Serum by [id number] 04:53:00 Test Item Value Reference Range Interpretation Comments Reagin Ab [Presence] in Serum by nonreactive nonreactive RPR (test code = 20528-6) [facility] CenterHepatitis B virus surface Ag [Presence] in Serum 2019-04-30 04:53:00 Test Item Value Reference Range Interpretation Comments .hepatitis B surface antigen (test negative negative code = .hepatitis B surface antigen) [facility] CenterUrinalysis macro (dipstick) panel - [id number] 10:17:40 Test Item Value Reference Range Interpretation Comments Leukocytes (test code = Leukocytes) Trace Nitrite (test code = Nitrite) negative Urobilinogen (test code = .2 Urobilinogen) Protein (test code = Protein) Trace pH (test code = pH) 6.5 Blood (test code = Blood) Negative Specific [place] (test code = 1.015 Specific [place]) Ketone (test code = Ketone) Negative Bilirubin (test code = Bilirubin) Negative Glucose (test code = Glucose) Negative Appearance (test code = Appearance) Clear Color (test code = Color) Yellow [facility] CenterUrinalysis macro (dipstick) panel - [id number] 10:17:40 Test Item Value Reference Range Interpretation Comments Leukocytes (test code = Leukocytes) Trace Nitrite (test code = Nitrite) negative Urobilinogen (test code = .2 Urobilinogen) Protein (test code = Protein) Trace pH (test code = pH) 6.5 Blood (test code = Blood) Negative Specific [place] (test code = 1.015 Specific [place]) Ketone (test code = Ketone) Negative Bilirubin (test code = Bilirubin) Negative Glucose (test code = Glucose) Negative Appearance (test code = Appearance) Clear Color (test code = Color) Yellow [facility] CenterUrinalysis macro (dipstick) panel - [id number] 10:17:40 Test Item Value Reference Range Interpretation Comments Leukocytes (test code = Leukocytes) Trace Nitrite (test code = Nitrite) negative Urobilinogen (test code = .2 Urobilinogen) Protein (test code = Protein) Trace pH (test code = pH) 6.5 Blood (test code = Blood) Negative Specific [place] (test code = 1.015 Specific [place]) Ketone (test code = Ketone) Negative Bilirubin (test code = Bilirubin) Negative Glucose (test code = Glucose) Negative Appearance (test code = Appearance) Clear Color (test code = Color) Yellow [facility] Biophysical profile panel [id number] 10:06:43 Test Item Value Reference Range Interpretation Comments Amniotic Fluid Index (test code = 2 (14.5) Amniotic Fluid Index) Tone (test code = Tone) 2 Breathing (test code = 2 Breathing) Movement (test code = 2 Movement) Non-Stress Test (test code = 2 Non-Stress Test) [facility] Biophysical profile panel [id number] 10:06:43 Test Item Value Reference Range Interpretation Comments Amniotic Fluid Index (test code = 2 (14.5) Amniotic Fluid Index) Tone (test code = Tone) 2 Breathing (test code = 2 Breathing) Movement (test code = 2 Movement) Non-Stress Test (test code = 2 Non-Stress Test) [facility] Biophysical profile panel [id number] 10:06:43 Test Item Value Reference Range Interpretation Comments Amniotic Fluid Index (test code = 2 (14.5) Amniotic Fluid Index) Tone (test code = Tone) 2 Breathing (test code = 2 Breathing) Movement (test code = 2 Movement) Non-Stress Test (test code = 2 Non-Stress Test) [facility] CenterUr[facility] macro (dipstick) panel - [id number] 11:37:00 Test Item Value Reference Range Interpretation Comments Leukocytes (test code = Leukocytes) Large Nitrite (test code = Nitrite) negative Urobilinogen (test code = 1 Urobilinogen) Protein (test code = Protein) Trace pH (test code = pH) 8.5 Blood (test code = Blood) Negative Specific [place] (test code = 1.020 Specific [place]) Ketone (test code = Ketone) Negative Bilirubin (test code = Bilirubin) Negative Glucose (test code = Glucose) Negative Appearance (test code = Appearance) Clear Color (test code = Color) Yellow [facility] CenterUr[facility] macro (dipstick) panel - [id number] 11:37:00 Test Item Value Reference Range Interpretation Comments Leukocytes (test code = Leukocytes) Large Nitrite (test code = Nitrite) negative Urobilinogen (test code = 1 Urobilinogen) Protein (test code = Protein) Trace pH (test code = pH) 8.5 Blood (test code = Blood) Negative Specific [place] (test code = 1.020 Specific [place]) Ketone (test code = Ketone) Negative Bilirubin (test code = Bilirubin) Negative Glucose (test code = Glucose) Negative Appearance (test code = Appearance) Clear Color (test code = Color) Yellow [facility] CenterUrinalysis macro (dipstick) panel - [id number] 11:37:00 Test Item Value Reference Range Interpretation Comments Leukocytes (test code = Leukocytes) Large Nitrite (test code = Nitrite) negative Urobilinogen (test code = 1 Urobilinogen) Protein (test code = Protein) Trace pH (test code = pH) 8.5 Blood (test code = Blood) Negative Specific [place] (test code = 1.020 Specific [place]) Ketone (test code = Ketone) Negative Bilirubin (test code = Bilirubin) Negative Glucose (test code = Glucose) Negative Appearance (test code = Appearance) Clear Color (test code = Color) Yellow [facility] CenterUrinalysis macro (dipstick) panel - [id number] 11:37:00 Test Item Value Reference Range Interpretation Comments Leukocytes (test code = Leukocytes) Large Nitrite (test code = Nitrite) negative Urobilinogen (test code = 1 Urobilinogen) Protein (test code = Protein) Trace pH (test code = pH) 8.5 Blood (test code = Blood) Negative Specific [place] (test code = 1.020 Specific [place]) Ketone (test code = Ketone) Negative Bilirubin (test code = Bilirubin) Negative Glucose (test code = Glucose) Negative Appearance (test code = Appearance) Clear Color (test code = Color) Yellow [facility] CenterUrinalysis macro (dipstick) panel - [id number] 11:37:00 Test Item Value Reference Range Interpretation Comments Leukocytes (test code = Leukocytes) Large Nitrite (test code = Nitrite) negative Urobilinogen (test code = 1 Urobilinogen) Protein (test code = Protein) Trace pH (test code = pH) 8.5 Blood (test code = Blood) Negative Specific [place] (test code = 1.020 Specific [place]) Ketone (test code = Ketone) Negative Bilirubin (test code = Bilirubin) Negative Glucose (test code = Glucose) Negative Appearance (test code = Appearance) Clear Color (test code = Color) Yellow [facility] Biophysical profile panel [id number] 11:06:57 Test Item Value Reference Range Interpretation Comments Amniotic Fluid Index (test code = 2 (14.6) Amniotic Fluid Index) Tone (test code = Tone) 2 Breathing (test code = 2 Breathing) Movement (test code = 2 Movement) Non-Stress Test (test code = 2 Non-Stress Test) [facility] Biophysical profile panel [id number] 11:06:57 Test Item Value Reference Range Interpretation Comments Amniotic Fluid Index (test code = 2 (14.6) Amniotic Fluid Index) Tone (test code = Tone) 2 Breathing (test code = 2 Breathing) Movement (test code = 2 Movement) Non-Stress Test (test code = 2 Non-Stress Test) [facility] Biophysical profile panel [id number] 11:06:57 Test Item Value Reference Range Interpretation Comments Amniotic Fluid Index (test code = 2 (14.6) Amniotic Fluid Index) Tone (test code = Tone) 2 Breathing (test code = 2 Breathing) Movement (test code = 2 Movement) Non-Stress Test (test code = 2 Non-Stress Test) [facility] Biophysical profile panel [id number] 11:06:57 Test Item Value Reference Range Interpretation Comments Amniotic Fluid Index (test code = 2 (14.6) Amniotic Fluid Index) Tone (test code = Tone) 2 Breathing (test code = 2 Breathing) Movement (test code = 2 Movement) Non-Stress Test (test code = 2 Non-Stress Test) [facility] Biophysical profile panel [id number] 11:06:57 Test Item Value Reference Range Interpretation Comments Amniotic Fluid Index (test code = 2 (14.6) Amniotic Fluid Index) Tone (test code = Tone) 2 Breathing (test code = 2 Breathing) Movement (test code = 2 Movement) Non-Stress Test (test code = 2 Non-Stress Test) [facility]Ur[facility] (dipstick) panel - [id number] 15:44:30 Test Item Value Reference Range Interpretation Comments Leukocytes (test code = Small Leukocytes) Nitrite (test code = Nitrite) negative Urobilinogen (test code = 2 Urobilinogen) Protein (test code = Protein) 30 pH (test code = pH) 8.0 Blood (test code = Blood) Negative Specific [place] (test code = 1.020 Specific [place]) Ketone (test code = Ketone) Negative Bilirubin (test code = Bilirubin) Small Glucose (test code = Glucose) Negative Appearance (test code = Clear Appearance) Color (test code = Color) Dark Yellow [facility] CenterUrinalysis macro (dipstick) panel - [id number] 15:44:30 Test Item Value Reference Range Interpretation Comments Leukocytes (test code = Small Leukocytes) Nitrite (test code = Nitrite) negative Urobilinogen (test code = 2 Urobilinogen) Protein (test code = Protein) 30 pH (test code = pH) 8.0 Blood (test code = Blood) Negative Specific [place] (test code = 1.020 Specific [place]) Ketone (test code = Ketone) Negative Bilirubin (test code = Bilirubin) Small Glucose (test code = Glucose) Negative Appearance (test code = Clear Appearance) Color (test code = Color) Dark Yellow [facility] CenterUr[facility]ysis macro (dipstick) panel - [id number] 15:44:30 Test Item Value Reference Range Interpretation Comments Leukocytes (test code = Small Leukocytes) Nitrite (test code = Nitrite) negative Urobilinogen (test code = 2 Urobilinogen) Protein (test code = Protein) 30 pH (test code = pH) 8.0 Blood (test code = Blood) Negative Specific [place] (test code = 1.020 Specific [place]) Ketone (test code = Ketone) Negative Bilirubin (test code = Bilirubin) Small Glucose (test code = Glucose) Negative Appearance (test code = Clear Appearance) Color (test code = Color) Dark Yellow [facility] CenterUr[facility] macro (dipstick) panel - [id number] 15:44:30 Test Item Value Reference Range Interpretation Comments Leukocytes (test code = Small Leukocytes) Nitrite (test code = Nitrite) negative Urobilinogen (test code = 2 Urobilinogen) Protein (test code = Protein) 30 pH (test code = pH) 8.0 Blood (test code = Blood) Negative Specific [place] (test code = 1.020 Specific [place]) Ketone (test code = Ketone) Negative Bilirubin (test code = Bilirubin) Small Glucose (test code = Glucose) Negative Appearance (test code = Clear Appearance) Color (test code = Color) Dark Yellow [facility]Ur[facility] (dipstick) panel - [id number] 15:44:30 Test Item Value Reference Range Interpretation Comments Leukocytes (test code = Small Leukocytes) Nitrite (test code = Nitrite) negative Urobilinogen (test code = 2 Urobilinogen) Protein (test code = Protein) 30 pH (test code = pH) 8.0 Blood (test code = Blood) Negative Specific [place] (test code = 1.020 Specific [place]) Ketone (test code = Ketone) Negative Bilirubin (test code = Bilirubin) Small Glucose (test code = Glucose) Negative Appearance (test code = Clear Appearance) Color (test code = Color) Dark Yellow [facility] GroupUr[facility] macro (dipstick) panel - [id number] 15:44:30 Test Item Value Reference Range Interpretation Comments Leukocytes (test code = Small Leukocytes) Nitrite (test code = Nitrite) negative Urobilinogen (test code = 2 Urobilinogen) Protein (test code = Protein) 30 pH (test code = pH) 8.0 Blood (test code = Blood) Negative Specific [place] (test code = 1.020 Specific [place]) Ketone (test code = Ketone) Negative Bilirubin (test code = Bilirubin) Small Glucose (test code = Glucose) Negative Appearance (test code = Clear Appearance) Color (test code = Color) Dark Yellow [facility] Biophysical profile panel [id number] 15:38:02 Test Item Value Reference Range Interpretation Comments Amniotic Fluid Index (test code = 2 (15.5) Amniotic Fluid Index) Tone (test code = Tone) 2 Breathing (test code = 2 Breathing) Movement (test code = 2 Movement) Non-Stress Test (test code = 2 Non-Stress Test) [facility] Biophysical profile panel [id number] 15:38:02 Test Item Value Reference Range Interpretation Comments Amniotic Fluid Index (test code = 2 (15.5) Amniotic Fluid Index) Tone (test code = Tone) 2 Breathing (test code = 2 Breathing) Movement (test code = 2 Movement) Non-Stress Test (test code = 2 Non-Stress Test) [facility] Biophysical profile panel [id number] 15:38:02 Test Item Value Reference Range Interpretation Comments Amniotic Fluid Index (test code = 2 (15.5) Amniotic Fluid Index) Tone (test code = Tone) 2 Breathing (test code = 2 Breathing) Movement (test code = 2 Movement) Non-Stress Test (test code = 2 Non-Stress Test) [facility] Biophysical profile panel [id number] 15:38:02 Test Item Value Reference Range Interpretation Comments Amniotic Fluid Index (test code = 2 (15.5) Amniotic Fluid Index) Tone (test code = Tone) 2 Breathing (test code = 2 Breathing) Movement (test code = 2 Movement) Non-Stress Test (test code = 2 Non-Stress Test) [facility] Biophysical profile panel [id number] 15:38:02 Test Item Value Reference Range Interpretation Comments Amniotic Fluid Index (test code = 2 (15.5) Amniotic Fluid Index) Tone (test code = Tone) 2 Breathing (test code = 2 Breathing) Movement (test code = 2 Movement) Non-Stress Test (test code = 2 Non-Stress Test) [facility] Biophysical profile panel [id number] 15:38:02 Test Item Value Reference Range Interpretation Comments Amniotic Fluid Index (test code = 2 (15.5) Amniotic Fluid Index) Tone (test code = Tone) 2 Breathing (test code = 2 Breathing) Movement (test code = 2 Movement) Non-Stress Test (test code = 2 Non-Stress Test) [facility] Biophysical profile panel [id number] 09:23:00 Test Item Value Reference Range Interpretation Comments Amniotic Fluid Index (test code = 2 (15.4) Amniotic Fluid Index) Tone (test code = Tone) 2 Breathing (test code = 2 Breathing) Movement (test code = 2 Movement) [facility] Biophysical profile panel [id number] 09:23:00 Test Item Value Reference Range Interpretation Comments Amniotic Fluid Index (test code = 2 (15.4) Amniotic Fluid Index) Tone (test code = Tone) 2 Breathing (test code = 2 Breathing) Movement (test code = 2 Movement) [facility] Biophysical profile panel [id number] 09:23:00 Test Item Value Reference Range Interpretation Comments Amniotic Fluid Index (test code = 2 (15.4) Amniotic Fluid Index) Tone (test code = Tone) 2 Breathing (test code = 2 Breathing) Movement (test code = 2 Movement) [facility] Biophysical profile panel [id number] 09:23:00 Test Item Value Reference Range Interpretation Comments Amniotic Fluid Index (test code = 2 (15.4) Amniotic Fluid Index) Tone (test code = Tone) 2 Breathing (test code = 2 Breathing) Movement (test code = 2 Movement) [facility] Biophysical profile panel [id number] 11:41:00 Test Item Value Reference Range Interpretation Comments Amniotic Fluid Index (test code = 2 (13.3) Amniotic Fluid Index) Tone (test code = Tone) 2 Breathing (test code = 2 Breathing) Movement (test code = 2 Movement) [facility] Biophysical profile panel [id number] 11:41:00 Test Item Value Reference Range Interpretation Comments Amniotic Fluid Index (test code = 2 (13.3) Amniotic Fluid Index) Tone (test code = Tone) 2 Breathing (test code = 2 Breathing) Movement (test code = 2 Movement) [facility] Biophysical profile panel [id number] 11:41:00 Test Item Value Reference Range Interpretation Comments Amniotic Fluid Index (test code = 2 (13.3) Amniotic Fluid Index) Tone (test code = Tone) 2 Breathing (test code = 2 Breathing) Movement (test code = 2 Movement) [facility] Biophysical profile panel [id number] 11:41:00 Test Item Value Reference Range Interpretation Comments Amniotic Fluid Index (test code = 2 (13.3) Amniotic Fluid Index) Tone (test code = Tone) 2 Breathing (test code = 2 Breathing) Movement (test code = 2 Movement) [facility] Biophysical profile panel [id number] 11:59:00 Test Item Value Reference Range Interpretation Comments Amniotic Fluid Index (test code = 2 (12.2) Amniotic Fluid Index) Tone (test code = Tone) 2 Breathing (test code = 2 Breathing) Movement (test code = 2 Movement) [facility] Biophysical profile panel [id number] 11:59:00 Test Item Value Reference Range Interpretation Comments Amniotic Fluid Index (test code = 2 (12.2) Amniotic Fluid Index) Tone (test code = Tone) 2 Breathing (test code = 2 Breathing) Movement (test code = 2 Movement) [facility] Biophysical profile panel [id number] 11:59:00 Test Item Value Reference Range Interpretation Comments Amniotic Fluid Index (test code = 2 (12.2) Amniotic Fluid Index) Tone (test code = Tone) 2 Breathing (test code = 2 Breathing) Movement (test code = 2 Movement) [facility] Biophysical profile panel [id number] 11:59:00 Test Item Value Reference Range Interpretation Comments Amniotic Fluid Index (test code = 2 (12.2) Amniotic Fluid Index) Tone (test code = Tone) 2 Breathing (test code = 2 Breathing) Movement (test code = 2 Movement) [facility] profile panel [id number] 11:59:00 Test Item Value Reference Range Interpretation Comments Amniotic Fluid Index (test code = 2 (12.2) Amniotic Fluid Index) Tone (test code = Tone) 2 Breathing (test code = 2 Breathing) Movement (test code = 2 Movement) [facility] GroupBacteria identified in Urine by [id number] 10:18:00 Test Item Value Reference Range Interpretation Comments Bacteria identified in no growth after 2 Urine by Culture (test days code = 630-4) [facility] GroupBacteria identified in Urine by [id number] 10:18:00 Test Item Value Reference Range Interpretation Comments Bacteria identified in no growth after 2 Urine by Culture (test days code = 630-4) [facility] GroupBacteria identified in Urine by [id number] 10:18:00 Test Item Value Reference Range Interpretation Comments Bacteria identified in no growth after 2 Urine by Culture (test days code = 630-4) [facility] GroupBacteria identified in Urine by [id number] 10:18:00 Test Item Value Reference Range Interpretation Comments Bacteria identified in no growth after 2 Urine by Culture (test days code = 630-4) [facility] GroupGlucose [Mass/volume] in Serum or Plasma --1 hour post dose [id number] 12:27:00 Test Item Value Reference Range Interpretation Comments Results (test code = Results) 152-Fail [facility] GroupGlucose [Mass/volume] in Serum or Plasma --1 hour post dose [id number] 12:27:00 Test Item Value Reference Range Interpretation Comments Results (test code = Results) 152-Fail [facility] GroupGlucose [Mass/volume] in Serum or Plasma --1 hour post dose [id number] 12:27:00 Test Item Value Reference Range Interpretation Comments Results (test code = Results) 152-Fail [facility] GroupGlucose [Mass/volume] in Serum or Plasma --1 hour post dose [id number] 12:27:00 Test Item Value Reference Range Interpretation Comments Results (test code = Results) 152-Fail [facility]Glucose [Mass/volume] in Serum or Plasma --1 hour post dose [id number] 12:27:00 Test Item Value Reference Range Interpretation Comments Results (test code = Results) 152-Fail [facility] CenterCBC W Auto Differential panel - [id number] 11:08:00 Test Item Value Reference Range Interpretation Comments white blood count (test code = 14.1 K/uL 4.0-11.5 H white blood count) red blood count (test code = red 4.04 M/uL 3.80-5.20 blood count) hemoglobin (test code = 11.1 g/dL 10.5-15.7 hemoglobin) hematocrit (test code = 35.1 % 34.0-50.0 hematocrit) Erythrocyte mean corpuscular 86.9 fL 86-100 volume [Entitic volume] (test code = 41007-1) mean corpuscular hemoglobin (test 27.5 pg 26.2-33.4 [...] H leukocytes in Blood (test code = 95108-7) Granulocytes Immature [#/volume] 0.1 K/uL 0.0-0.03 H in Blood (test code = 86779-6) lymphocyte% (test code = 10.7 % 10.0-50.0 lymphocyte%) mono % (test code = mono %) 4.0 % 3.6-12.0 eos % (test code = eos %) 0.1 % 0.0-5.4 Basophils/100 leukocytes in 0.1 % 0.1-1.2 Unspecified specimen (test code = 09310-3) Neutrophils.band form [#/volume] 11.91 K/uL 1.56-6.13 H in Blood (test code = 11098-0) Lymphocytes [#/volume] in 1.5 K/uL 1.18-3.74 Unspecified specimen by Automated count (test code = 01691-2) mono # (test code = mono #) 0.56 K/uL 0.24-0.86 eos # (test code = eos #) 0.01 K/uL 0.04-0.36 L basophil # (test code = basophil 0.02 K/uL 0.01-0.08 #) NRBC% (test code = NRBC%) 0 /100 WBC 0-0.2 NRBC# (test code = NRBC#) 0 K/uL [facility] Centerdifferential [facility], [id number] 11:08:00 NeutrophilsBandLymphocyteMonocytePlatelet EstimateMatagoB[facility] HospitalBlood group antibody screen [Presence] in Serum or [id number] 11:08:00 Test Item Value Reference Range Interpretation Comments Blood group antibody screen negative [Presence] in Serum or Plasma (test code = 890-4) [facility] CenterCB W Auto Differential panel - [id number] 11:08:00 Test Item Value Reference Range Interpretation Comments white blood count (test code = 14.1 K/uL 4.0-11.5 H white blood count) red blood count (test code = red 4.04 M/uL 3.80-5.20 blood count) hemoglobin (test code = 11.1 g/dL 10.5-15.7 hemoglobin) hematocrit (test code = 35.1 % 34.0-50.0 hematocrit) Erythrocyte mean corpuscular 86.9 fL 86-100 volume [Entitic volume] (test code = 51567-5) mean corpuscular hemoglobin (test 27.5 pg 26.2-33.4 [...] H leukocytes in Blood (test code = 03848-3) Granulocytes Immature [#/volume] 0.1 K/uL 0.0-0.03 H in Blood (test code = 37493-5) lymphocyte% (test code = 10.7 % 10.0-50.0 lymphocyte%) mono % (test code = mono %) 4.0 % 3.6-12.0 eos % (test code = eos %) 0.1 % 0.0-5.4 Basophils/100 leukocytes in 0.1 % 0.1-1.2 Unspecified specimen (test code = 64074-0) Neutrophils.band form [#/volume] 11.91 K/uL 1.56-6.13 H in Blood (test code = 55135-7) Lymphocytes [#/volume] in 1.5 K/uL 1.18-3.74 Unspecified specimen by Automated count (test code = 64327-9) mono # (test code = mono #) 0.56 K/uL 0.24-0.86 eos # (test code = eos #) 0.01 K/uL 0.04-0.36 L basophil # (test code = basophil 0.02 K/uL 0.01-0.08 #) NRBC% (test code = NRBC%) 0 /100 WBC 0-0.2 NRBC# (test code = NRBC#) 0 K/uL [facility] Groupdifferential panel, [id number] 11:08:00 NeutrophilsBandLymphocyteMonocytePlatelet EstimateMatagoa [facility] GroupBlood group antibody screen [Presence] in Serum or [id number] 11:08:00 Test Item Value Reference Range Interpretation Comments Blood group antibody screen negative [Presence] in Serum or Plasma (test code = 890-4) [facility] GroupHIV 1+2 Ab [Presence] in [id number] 11:08:00HIV P24 AgHIV-1/2 AbNorth [facility]flower [facility] CenterReagin Ab [Presence] in Serum by RPR 2019-03-09 11:08:00 Test Item Value Reference Range Interpretation Comments Reagin Ab [Presence] in Serum by nonreactive nonreactive RPR (test code = 84849-4) [facility] W Auto Differential panel - [id number] 11:08:00 Test Item Value Reference Range Interpretation Comments white blood count (test code = 14.1 K/uL 4.0-11.5 H white blood count) red blood count (test code = red 4.04 M/uL 3.80-5.20 blood count) hemoglobin (test code = 11.1 g/dL 10.5-15.7 hemoglobin) hematocrit (test code = 35.1 % 34.0-50.0 hematocrit) Erythrocyte mean corpuscular 86.9 fL 86-100 volume [Entitic volume] (test code = 13945-2) mean corpuscular hemoglobin (test 27.5 pg 26.2-33.4 [...] H leukocytes in Blood (test code = 65149-5) Granulocytes Immature [#/volume] 0.1 K/uL 0.0-0.03 H in Blood (test code = 43319-3) lymphocyte% (test code = 10.7 % 10.0-50.0 lymphocyte%) mono % (test code = mono %) 4.0 % 3.6-12.0 eos % (test code = eos %) 0.1 % 0.0-5.4 Basophils/100 leukocytes in 0.1 % 0.1-1.2 Unspecified specimen (test code = 28873-2) Neutrophils.band form [#/volume] 11.91 K/uL 1.56-6.13 H in Blood (test code = 25389-3) Lymphocytes [#/volume] in 1.5 K/uL 1.18-3.74 Unspecified specimen by Automated count (test code = 98577-0) mono # (test code = mono #) 0.56 K/uL 0.24-0.86 eos # (test code = eos #) 0.01 K/uL 0.04-0.36 L basophil # (test code = basophil 0.02 K/uL 0.01-0.08 #) NRBC% (test code = NRBC%) 0 /100 WBC 0-0.2 NRBC# (test code = NRBC#) 0 K/uL [facility], [id number] 11:08:00 NeutrophilsBandLymphocyteMonocytePlatelet EstimateNorth Sunflower Medical CenterBlood group antibody screen [Presence] in Serum or [id number] 11:08:00 Test Item Value Reference Range Interpretation Comments Blood group antibody screen negative [Presence] in Serum or Plasma (test code = 890-4) [facility] CenterHIV [facility]2 Ab [Presence] in [id number] 11:08:00HIV P24 AgHIV-1/2 AbNorth Sunflower Medical CenterReagin Ab [Presence] in Serum by RPR 2019-03-09 11:08:00 Test Item Value Reference Range Interpretation Comments Reagin Ab [Presence] in Serum by nonreactive nonreactive RPR (test code = 66836-7) [facility] CenterCB [facility] Auto Differential panel - [id number] 11:08:00 Test Item Value Reference Range Interpretation Comments white blood count (test code = 14.1 K/uL 4.0-11.5 H white blood count) red blood count (test code = red 4.04 M/uL 3.80-5.20 blood count) hemoglobin (test code = 11.1 g/dL 10.5-15.7 hemoglobin) hematocrit (test code = 35.1 % 34.0-50.0 hematocrit) Erythrocyte mean corpuscular 86.9 fL 86-100 volume [Entitic volume] (test code = 34676-3) mean corpuscular hemoglobin (test 27.5 pg 26.2-33.4 [...] H leukocytes in Blood (test code = 80751-0) Granulocytes Immature [#/volume] 0.1 K/uL 0.0-0.03 H in Blood (test code = 43324-4) lymphocyte% (test code = 10.7 % 10.0-50.0 lymphocyte%) mono % (test code = mono %) 4.0 % 3.6-12.0 eos % (test code = eos %) 0.1 % 0.0-5.4 Basophils/100 leukocytes in 0.1 % 0.1-1.2 Unspecified specimen (test code = 83971-4) Neutrophils.band form [#/volume] 11.91 K/uL 1.56-6.13 H in Blood (test code = 41917-6) Lymphocytes [#/volume] in 1.5 K/uL 1.18-3.74 Unspecified specimen by Automated count (test code = 07966-5) mono # (test code = mono #) 0.56 K/uL 0.24-0.86 eos # (test code = eos #) 0.01 K/uL 0.04-0.36 L basophil # (test code = basophil 0.02 K/uL 0.01-0.08 #) NRBC% (test code = NRBC%) 0 /100 WBC 0-0.2 NRBC# (test code = NRBC#) 0 K/uL [facility]different[facility], [id number] 11:08:00 NeutrophilsBandLymphocyteMonocytePlatelet EstimateMatagorda Medical GroupBlood group antibody screen [Presence] in Serum or [id number] 11:08:00 Test Item Value Reference Range Interpretation Comments Blood group antibody screen negative [Presence] in Serum or Plasma (test code = 890-4) [facility] CenterHIV [facility]2 Ab [Presence] in [id number] 11:08:00HIV P24 AgHIV-1/2 AbNorth Sunflower Medical CenterReagin Ab [Presence] in Serum by RPR 2019-03-09 11:08:00 Test Item Value Reference Range Interpretation Comments Reagin Ab [Presence] in Serum by nonreactive nonreactive RPR (test code = 34882-8) [facility] W Auto Differential panel - [id number] 11:08:00 Test Item Value Reference Range Interpretation Comments white blood count (test code = 14.1 K/uL 4.0-11.5 H white blood count) red blood count (test code = red 4.04 M/uL 3.80-5.20 blood count) hemoglobin (test code = 11.1 g/dL 10.5-15.7 hemoglobin) hematocrit (test code = 35.1 % 34.0-50.0 hematocrit) Erythrocyte mean corpuscular 86.9 fL 86-100 volume [Entitic volume] (test code = 21587-3) mean corpuscular hemoglobin (test 27.5 pg 26.2-33.4 [...] H leukocytes in Blood (test code = 03597-4) Granulocytes Immature [#/volume] 0.1 K/uL 0.0-0.03 H in Blood (test code = 65995-4) lymphocyte% (test code = 10.7 % 10.0-50.0 lymphocyte%) mono % (test code = mono %) 4.0 % 3.6-12.0 eos % (test code = eos %) 0.1 % 0.0-5.4 Basophils/100 leukocytes in 0.1 % 0.1-1.2 Unspecified specimen (test code = 64205-5) Neutrophils.band form [#/volume] 11.91 K/uL 1.56-6.13 H in Blood (test code = 56562-9) Lymphocytes [#/volume] in 1.5 K/uL 1.18-3.74 Unspecified specimen by Automated count (test code = 48408-2) mono # (test code = mono #) 0.56 K/uL 0.24-0.86 eos # (test code = eos #) 0.01 K/uL 0.04-0.36 L basophil # (test code = basophil 0.02 K/uL 0.01-0.08 #) NRBC% (test code = NRBC%) 0 /100 WBC 0-0.2 NRBC# (test code = NRBC#) 0 K/uL [facility] Groupdifferential panel, [id number] 11:08:00 NeutrophilsBandLymphocyteMonocytePlatelet EstimateMatanew milford hospitala Medical GroupBlood group antibody screen [Presence] in Serum or [id number] 11:08:00 Test Item Value Reference Range Interpretation Comments Blood group antibody screen negative [Presence] in Serum or Plasma (test code = 890-4) [facility] GroupHIV 1+2 Ab [Presence] in [id number] 11:08:00HIV P24 AgHIV-1/2 AbMatanew milford hospitala Medical GroupReagin Ab [Presence] in Serum by RPR 2019-03-09 11:08:00 Test Item Value Reference Range Interpretation Comments Reagin Ab [Presence] in Serum by nonreactive nonreactive RPR (test code = 99324-1) [facility] GroupChlamydia trachomatis+Neisseria gonorrhoeae DNA [Presence] in Cervix by Probe and target amplification [id number] 10:54:00 ResultsMatagorda Medical GroupMicroscopic observation [Identifier] in Cervix by Cyto stain.thin [id number] 10:54:00ResultsMatagorda Medical GroupChlamydia trachomatis+Neisseria gonorrhoeae DNA [Presence] in Cervix by Probe and target amplification [id number] 10:54:00ResultsMatanew milford hospitala Medical GroupMicroscopic observation [Identifier] in Cervix by Cyto stain.thin [id number] 10:54:00 ResultsMatarda Medical GroupChlamydia trachomatis+Neisseria gonorrhoeae DNA [Presence] in Cervix by Probe and target amplification [id number] 10:54:00 ResultsMatarda Medical GroupMicroscopic observation [Identifier] in Cervix by Cyto stain.thin [id number] 10:54:00ResultsMatanew milford hospitala Medical GroupChlamydia trachomatis+Neisseria gonorrhoeae DNA [Presence] in Cervix by Probe and target amplification [id number] 10:54:00ResultsMatarda Medical GroupMicroscopic observation [Identifier] in Cervix by Cyto stain.thin [id number] 10:54:00 ResultsNorth [facility]flower Medical CenterUrinalysis macro (dipstick) panel - Urine 2019-03-04 15:32:00 Test Item Value Reference Range Interpretation Comments Leukocytes (test code = Moderate Leukocytes) Nitrite (test code = negative Nitrite) Urobilinogen (test code = .2 Urobilinogen) Protein (test code = Trace Protein) pH (test code = pH) 7.0 Blood (test code = Blood) Non-Hemolyzed: Trace Specific [place] (test 1.020 code = Specific [place]) Ketone (test code = Trace Ketone) Bilirubin (test code = Negative Bilirubin) Glucose (test code = Negative Glucose) Appearance (test code = Clear Appearance) Color (test code = Color) Yellow [facility] CenterUrinalysis macro (dipstick) panel - [id number] 15:32:00 Test Item Value Reference Range Interpretation Comments Leukocytes (test code = Moderate Leukocytes) Nitrite (test code = negative Nitrite) Urobilinogen (test code = .2 Urobilinogen) Protein (test code = Trace Protein) pH (test code = pH) 7.0 Blood (test code = Blood) Non-Hemolyzed: Trace Specific [place] (test 1.020 code = Specific [place]) Ketone (test code = Trace Ketone) Bilirubin (test code = Negative Bilirubin) Glucose (test code = Negative Glucose) Appearance (test code = Clear Appearance) Color (test code = Color) Yellow [facility] CenterUrinalysis macro (dipstick) panel - [id number] 15:32:00 Test Item Value Reference Range Interpretation Comments Leukocytes (test code = Moderate Leukocytes) Nitrite (test code = negative Nitrite) Urobilinogen (test code = .2 Urobilinogen) Protein (test code = Trace Protein) pH (test code = pH) 7.0 Blood (test code = Blood) Non-Hemolyzed: Trace Specific [place] (test 1.020 code = Specific [place]) Ketone (test code = Trace Ketone) Bilirubin (test code = Negative Bilirubin) Glucose (test code = Negative Glucose) Appearance (test code = Clear Appearance) Color (test code = Color) Yellow [facility] CenterUrinalysis macro (dipstick) panel - [id number] 15:32:00 Test Item Value Reference Range Interpretation Comments Leukocytes (test code = Moderate Leukocytes) Nitrite (test code = negative Nitrite) Urobilinogen (test code = .2 Urobilinogen) Protein (test code = Trace Protein) pH (test code = pH) 7.0 Blood (test code = Blood) Non-Hemolyzed: Trace Specific [place] (test 1.020 code = Specific [place]) Ketone (test code = Trace Ketone) Bilirubin (test code = Negative Bilirubin) Glucose (test code = Negative Glucose) Appearance (test code = Clear Appearance) Color (test code = Color) Yellow [facility] CenterUrinalysis macro (dipstick) panel - [id number] 15:32:00 Test Item Value Reference Range Interpretation Comments Leukocytes (test code = Moderate Leukocytes) Nitrite (test code = negative Nitrite) Urobilinogen (test code = .2 Urobilinogen) Protein (test code = Trace Protein) pH (test code = pH) 7.0 Blood (test code = Blood) Non-Hemolyzed: Trace Specific [place] (test 1.020 code = Specific [place]) Ketone (test code = Trace Ketone) Bilirubin (test code = Negative Bilirubin) Glucose (test code = Negative Glucose) Appearance (test code = Clear Appearance) Color (test code = Color) Yellow [facility] CenterUrinalysis macro (dipstick) panel - [id number] 15:32:00 Test Item Value Reference Range Interpretation Comments Leukocytes (test code = Moderate Leukocytes) Nitrite (test code = negative Nitrite) Urobilinogen (test code = .2 Urobilinogen) Protein (test code = Trace Protein) pH (test code = pH) 7.0 Blood (test code = Blood) Non-Hemolyzed: Trace Specific [place] (test 1.020 code = Specific [place]) Ketone (test code = Trace Ketone) Bilirubin (test code = Negative Bilirubin) Glucose (test code = Negative Glucose) Appearance (test code = Clear Appearance) Color (test code = Color) Yellow [facility] W Auto Differential panel - [id number] 12:35:00 Test Item Value Reference Range Interpretation Comments white blood count (test code = 12.4 K/uL 4.0-11.5 white blood count) red blood count (test code = red 3.63 M/uL 3.80-5.20 L blood count) hemoglobin (test code = 10.0 g/dL 10.5-15.7 L hemoglobin) hematocrit (test code = 31.4 % 34.0-50.0 hematocrit) Erythrocyte mean corpuscular 86.5 fL 86-100 volume [Entitic volume] (test code = 21481-1) mean corpuscular hemoglobin (test 27.5 pg 26.2-33.4 [...] 44.4-80.1 leukocytes in Blood (test code = 28232-9) Granulocytes Immature [#/volume] 0.1 K/uL 0.0-0.03 H in Blood (test code = 31794-7) lymphocyte% (test code = 15.7 % 10.0-50.0 lymphocyte%) mono % (test code = mono %) 5.7 % 3.6-12.0 eos % (test code = eos %) 0.3 % 0.0-5.4 Basophils/100 leukocytes in 0.2 % 0.1-1.2 Unspecified specimen (test code = 37185-6) Neutrophils.band form [#/volume] 9.61 K/uL 1.56-6.13 H in Blood (test code = 51478-3) Lymphocytes [#/volume] in 1.9 K/uL 1.18-3.74 Unspecified specimen by Automated count (test code = 97525-4) mono # (test code = mono #) 0.70 K/uL 0.24-0.86 eos # (test code = eos #) 0.04 K/uL 0.04-0.36 basophil # (test code = basophil 0.02 K/uL 0.01-0.08 #) NRBC% (test code = NRBC%) 0 /100 WBC 0-0.2 NRBC# (test code = NRBC#) 0 K/uL [facility] GroupHIV 1+2 Ab [Presence] in [id number] 12:35:00HIV P24 AgHIV-1/2 AbMaSt. [facility] [place] GroupABO & Rh group [Type] in [id number] 12:35:00 Test Item Value Reference Range Interpretation Comments Rh [Type] in Blood (test code = 3+ 72247-9) ABO and Rh group panel - Blood O positive (test code = 84174-7) [facility] GroupBlood group antibody screen [Presence] in Serum or Plasma 2019-03-04 12:35:00 Test Item Value Reference Range Interpretation Comments Blood group antibody screen negative [Presence] in Serum or Plasma (test code = 890-4) [facility] GroupBacteria identified in Urine by [id number] 12:35:00Bacteria Ur CultFormerly [facility] GroupReagin Ab [Presence] in Serum by [id number] 12:35:00 Test Item Value Reference Range Interpretation Comments Reagin Ab [Presence] in Serum by nonreactive nonreactive RPR (test code = 32117-2) [facility] Groupantibiotic sensitivity testing, [id number] 12:35:00 Test Item Value Reference Range Interpretation [...] Minimum inhibitory concentration (GUSTAVO) (test code = 19573-3) Piperacillin+Tazobactam <16 [Susceptibility] by Minimum inhibitory concentration [...] <0.5 inhibitory concentration (GUSTAVO) (test code = 55508-7) Aztreonam [Susceptibility] by Minimum <4 inhibitory concentration (GUSTAVO) (test code = 44-8) Cefuroxime [Susceptibility] by Minimum <4 inhibitory concentration (GUSTAVO) (test code = 94086-7) [facility] W Auto Differential panel - [id number] 12:35:00 Test Item Value Reference Range Interpretation Comments white blood count (test code = 12.4 K/uL 4.0-11.5 white blood count) red blood count (test code = red 3.63 M/uL 3.80-5.20 L blood count) hemoglobin (test code = 10.0 g/dL 10.5-15.7 L hemoglobin) hematocrit (test code = 31.4 % 34.0-50.0 hematocrit) Erythrocyte mean corpuscular 86.5 fL 86-100 volume [Entitic volume] (test code = 13315-3) mean corpuscular hemoglobin (test 27.5 pg 26.2-33.4 [...] 44.4-80.1 leukocytes in Blood (test code = 79129-3) Granulocytes Immature [#/volume] 0.1 K/uL 0.0-0.03 H in Blood (test code = 56048-5) lymphocyte% (test code = 15.7 % 10.0-50.0 lymphocyte%) mono % (test code = mono %) 5.7 % 3.6-12.0 eos % (test code = eos %) 0.3 % 0.0-5.4 Basophils/100 leukocytes in 0.2 % 0.1-1.2 Unspecified specimen (test code = 07353-8) Neutrophils.band form [#/volume] 9.61 K/uL 1.56-6.13 H in Blood (test code = 78319-8) Lymphocytes [#/volume] in 1.9 K/uL 1.18-3.74 Unspecified specimen by Automated count (test code = 03660-3) mono # (test code = mono #) 0.70 K/uL 0.24-0.86 eos # (test code = eos #) 0.04 K/uL 0.04-0.36 basophil # (test code = basophil 0.02 K/uL 0.01-0.08 #) NRBC% (test code = NRBC%) 0 /100 WBC 0-0.2 NRBC# (test code = NRBC#) 0 K/uL [facility] GroupHIV 1+2 Ab [Presence] in [id number] 12:35:00HIV P24 AgHIV-1/2 AbMatalawrence+memorial hospital Medical GroupABO & Rh group [Type] in [id number] 12:35:00 Test Item Value Reference Range Interpretation Comments Rh [Type] in Blood (test code = 3+ 70745-0) ABO and Rh group panel - Blood O positive (test code = 36487-8) [facility] GroupBlood group antibody screen [Presence] in Serum or Plasma 2019-03-04 12:35:00 Test Item Value Reference Range Interpretation Comments Blood group antibody screen negative [Presence] in Serum or Plasma (test code = 890-4) [facility] GroupBacteria identified in Urine by [id number] 12:35:00Bacteria Ur CultFormerly [facility] GroupReagin Ab [Presence] in Serum by [id number] 12:35:00 Test Item Value Reference Range Interpretation Comments Reagin Ab [Presence] in Serum by nonreactive nonreactive RPR (test code = 20728-0) [facility] Groupantibiotic sensitivity testing, [id number] 12:35:00 Test Item Value Reference Range Interpretation [...] Minimum inhibitory concentration (GUSTAVO) (test code = 95164-5) Piperacillin+Tazobactam <16 [Susceptibility] by Minimum inhibitory concentration [...] <0.5 inhibitory concentration (GUSTAVO) (test code = 64794-4) Aztreonam [Susceptibility] by Minimum <4 inhibitory concentration (GUSTAVO) (test code = 44-8) Cefuroxime [Susceptibility] by Minimum <4 inhibitory concentration (GUSTAVO) (test code = 74444-1) [facility] W Auto Differential panel - [id number] 12:35:00 Test Item Value Reference Range Interpretation Comments white blood count (test code = 12.4 K/uL 4.0-11.5 white blood count) red blood count (test code = red 3.63 M/uL 3.80-5.20 L blood count) hemoglobin (test code = 10.0 g/dL 10.5-15.7 L hemoglobin) hematocrit (test code = 31.4 % 34.0-50.0 hematocrit) Erythrocyte mean corpuscular 86.5 fL 86-100 volume [Entitic volume] (test code = 50797-2) mean corpuscular hemoglobin (test 27.5 pg 26.2-33.4 [...] 44.4-80.1 leukocytes in Blood (test code = 25390-3) Granulocytes Immature [#/volume] 0.1 K/uL 0.0-0.03 H in Blood (test code = 03348-9) lymphocyte% (test code = 15.7 % 10.0-50.0 lymphocyte%) mono % (test code = mono %) 5.7 % 3.6-12.0 eos % (test code = eos %) 0.3 % 0.0-5.4 Basophils/100 leukocytes in 0.2 % 0.1-1.2 Unspecified specimen (test code = 60097-6) Neutrophils.band form [#/volume] 9.61 K/uL 1.56-6.13 H in Blood (test code = 84725-3) Lymphocytes [#/volume] in 1.9 K/uL 1.18-3.74 Unspecified specimen by Automated count (test code = 19443-4) mono # (test code = mono #) 0.70 K/uL 0.24-0.86 eos # (test code = eos #) 0.04 K/uL 0.04-0.36 basophil # (test code = basophil 0.02 K/uL 0.01-0.08 #) NRBC% (test code = NRBC%) 0 /100 WBC 0-0.2 NRBC# (test code = NRBC#) 0 K/uL [facility] GroupHIV 1+2 Ab [Presence] in [id number] 12:35:00HIV P24 AgHIV-1/2 AbMatagorda Medical GroupABO & Rh group [Type] in [id number] 12:35:00 Test Item Value Reference Range Interpretation Comments Rh [Type] in Blood (test code = 3+ 80236-3) ABO and Rh group panel - Blood O positive (test code = 02702-9) [facility] [Presence] in Serum or Plasma 2019-03-04 12:35:00 Test Item Value Reference Range Interpretation Comments Blood group antibody screen negative [Presence] in Serum or Plasma (test code = 890-4) [facility] GroupBacteria identified in Urine by [id number] 12:35:00Bacteria Ur CultMataWashington County [facility]erculosis Hospital GroupReagin Ab [Presence] in Serum by [id number] 12:35:00 Test Item Value Reference Range Interpretation Comments Reagin Ab [Presence] in Serum by nonreactive nonreactive RPR (test code = 64601-3) [facility] Centerantib[facility] sensitivity testing, [id number] 12:35:00 Test Item Value Reference Range Interpretation [...] Minimum inhibitory concentration (GUSTAVO) (test code = 21507-2) Piperacillin+Tazobactam <16 [Susceptibility] by Minimum inhibitory concentration [...] <0.5 inhibitory concentration (GUSTAVO) (test code = 13131-8) Aztreonam [Susceptibility] by Minimum <4 inhibitory concentration (GUSTAVO) (test code = 44-8) Cefuroxime [Susceptibility] by Minimum <4 inhibitory concentration (GUSTAVO) (test code = 25666-4) [facility] W Auto Differential panel - [id number] 12:35:00 Test Item Value Reference Range Interpretation Comments white blood count (test code = 12.4 K/uL 4.0-11.5 white blood count) red blood count (test code = red 3.63 M/uL 3.80-5.20 L blood count) hemoglobin (test code = 10.0 g/dL 10.5-15.7 L hemoglobin) hematocrit (test code = 31.4 % 34.0-50.0 hematocrit) Erythrocyte mean corpuscular 86.5 fL 86-100 volume [Entitic volume] (test code = 65508-6) mean corpuscular hemoglobin (test 27.5 pg 26.2-33.4 [...] 44.4-80.1 leukocytes in Blood (test code = 48145-5) Granulocytes Immature [#/volume] 0.1 K/uL 0.0-0.03 H in Blood (test code = 36823-8) lymphocyte% (test code = 15.7 % 10.0-50.0 lymphocyte%) mono % (test code = mono %) 5.7 % 3.6-12.0 eos % (test code = eos %) 0.3 % 0.0-5.4 Basophils/100 leukocytes in 0.2 % 0.1-1.2 Unspecified specimen (test code = 31429-3) Neutrophils.band form [#/volume] 9.61 K/uL 1.56-6.13 H in Blood (test code = 80982-1) Lymphocytes [#/volume] in 1.9 K/uL 1.18-3.74 Unspecified specimen by Automated count (test code = 10417-4) mono # (test code = mono #) 0.70 K/uL 0.24-0.86 eos # (test code = eos #) 0.04 K/uL 0.04-0.36 basophil # (test code = basophil 0.02 K/uL 0.01-0.08 #) NRBC% (test code = NRBC%) 0 /100 WBC 0-0.2 NRBC# (test code = NRBC#) 0 K/uL [facility] GroupHIV 1+2 Ab [Presence] in [id number] 12:35:00HIV P24 AgHIV-1/2 AbMatagorda Medical GroupABO & Rh group [Type] in [id number] 12:35:00 Test Item Value Reference Range Interpretation Comments Rh [Type] in Blood (test code = 3+ 05290-5) ABO and Rh group panel - Blood O positive (test code = 89556-4) [facility] GroupBlood group antibody screen [Presence] in Serum or Plasma 2019-03-04 12:35:00 Test Item Value Reference Range Interpretation Comments Blood group antibody screen negative [Presence] in Serum or Plasma (test code = 890-4) [facility] GroupBacteria identified in Urine by [id number] 12:35:00Bacteria Ur CultMatagorda Medical GroupReagin Ab [Presence] in Serum by [id number] 12:35:00 Test Item Value Reference Range Interpretation Comments Reagin Ab [Presence] in Serum by nonreactive nonreactive RPR (test code = 45061-0) [facility]antib[facility], [id number] 12:35:00 Test Item Value Reference Range Interpretation [...] Minimum inhibitory concentration (GUSTAVO) (test code = 86638-8) Piperacillin+Tazobactam <16 [Susceptibility] by Minimum inhibitory concentration [...] <0.5 inhibitory concentration (GUSTAVO) (test code = 53699-0) Aztreonam [Susceptibility] by Minimum <4 inhibitory concentration (GUSTAVO) (test code = 44-8) Cefuroxime [Susceptibility] by Minimum <4 inhibitory concentration (GUSTAVO) (test code = 95356-1) [facility] W Auto Differential panel - [id number] 12:35:00 Test Item Value Reference Range Interpretation Comments white blood count (test code = 12.4 K/uL 4.0-11.5 white blood count) red blood count (test code = red 3.63 M/uL 3.80-5.20 L blood count) hemoglobin (test code = 10.0 g/dL 10.5-15.7 L hemoglobin) hematocrit (test code = 31.4 % 34.0-50.0 hematocrit) Erythrocyte mean corpuscular 86.5 fL 86-100 volume [Entitic volume] (test code = 38156-3) mean corpuscular hemoglobin (test 27.5 pg 26.2-33.4 [...] 44.4-80.1 leukocytes in Blood (test code = 80018-2) Granulocytes Immature [#/volume] 0.1 K/uL 0.0-0.03 H in Blood (test code = 90319-1) lymphocyte% (test code = 15.7 % 10.0-50.0 lymphocyte%) mono % (test code = mono %) 5.7 % 3.6-12.0 eos % (test code = eos %) 0.3 % 0.0-5.4 Basophils/100 leukocytes in 0.2 % 0.1-1.2 Unspecified specimen (test code = 02319-2) Neutrophils.band form [#/volume] 9.61 K/uL 1.56-6.13 H in Blood (test code = 27275-9) Lymphocytes [#/volume] in 1.9 K/uL 1.18-3.74 Unspecified specimen by Automated count (test code = 10380-2) mono # (test code = mono #) 0.70 K/uL 0.24-0.86 eos # (test code = eos #) 0.04 K/uL 0.04-0.36 basophil # (test code = basophil 0.02 K/uL 0.01-0.08 #) NRBC% (test code = NRBC%) 0 /100 WBC 0-0.2 NRBC# (test code = NRBC#) 0 K/uL [facility] GroupHIV 1+2 Ab [Presence] in [id number] 12:35:00HIV P24 AgHIV-1/2 AbMatagorda Medical GroupABO & Rh group [Type] in [id number] 12:35:00 Test Item Value Reference Range Interpretation Comments Rh [Type] in Blood (test code = 3+ 63336-0) ABO and Rh group panel - Blood O positive (test code = 52953-1) [facility] GroupBlood group antibody screen [Presence] in Serum or Plasma 2019-03-04 12:35:00 Test Item Value Reference Range Interpretation Comments Blood group antibody screen negative [Presence] in Serum or Plasma (test code = 890-4) [facility] Group[facility]acteria identified in Urine by [id number] 12:35:00Bacteria Ur CultHouston Medical GroupReagin Ab [Presence] in Serum by [id number] 12:35:00 Test Item Value Reference Range Interpretation Comments Reagin Ab [Presence] in Serum by nonreactive nonreactive RPR (test code = 43722-7) [facility] Group[facility]iotic sensitivity testing, [id number] 12:35:00 Test Item Value Reference Range Interpretation [...] Minimum inhibitory concentration (GUSTAVO) (test code = 41609-4) Piperacillin+Tazobactam <16 [Susceptibility] by Minimum inhibitory concentration [...] <0.5 inhibitory concentration (GUSTAVO) (test code = 98485-4) Aztreonam [Susceptibility] by Minimum <4 inhibitory concentration (GUSTAVO) (test code = 44-8) Cefuroxime [Susceptibility] by Minimum <4 inhibitory concentration (GUSTAVO) (test code = 40110-9) [facility] virus surface Ag [Presence] in Serum 2019-03-04 02:36:00 Test Item Value Reference Range Interpretation Comments .hepatitis B surface antigen (test negative negative code = .hepatitis B surface antigen) [facility] B virus surface Ag [Presence] in Serum 2019-03-04 02:36:00 Test Item Value Reference Range Interpretation Comments .hepatitis B surface antigen (test negative negative code = .hepatitis B surface antigen) [facility] B virus surface Ag [Presence] in Serum 2019-03-04 02:36:00 Test Item Value Reference Range Interpretation Comments .hepatitis B surface antigen (test negative negative code = .hepatitis B surface antigen) [facility] Ag [Presence] in Serum 2019-03-04 02:36:00 Test Item Value Reference Range Interpretation Comments .hepatitis B surface antigen (test negative negative code = .hepatitis B surface antigen) [facility] virus surface Ag [Presence] in Serum 2019-03-04 02:36:00 Test Item Value Reference Range Interpretation Comments .hepatitis B surface antigen (test negative negative code = .hepatitis B surface antigen) [facility]
[2021-12-28 22:56] LABS: Urine Blood 2+ (Negative); Urine Glucose Negative (Negative); Urine Protein 2+ (Negative); Urine Specific Gravity >=1.030 (1.005-1.030)
[2021-12-28] MEDS ORDERED: NA CHLORIDE 0.9% 1,000 ML ONE (23:07)
[2021-12-28 23:10] LABS: Urine Bacteria <20 /HPF (<20); Urine Mucus 1+ /HPF (None Seen); Urine RBC >50 /HPF (None Seen); Urine WBC Clump Occasional /HPF (None Seen)
[2021-12-28 23:27] LABS: Absolute Lymphocytes (CBC) 3.1 K/uL (0.7-4.9); Hematocrit 34.1 % (36.0-45.0); Lymphocytes % 30.4 % (15.3-44.8); MCV 78.9 fL (80-100); MPV 9.3 fL (7.6-11.3); RBC Red Blood Cell Count 4.32 M/uL (3.86-4.86)
[2021-12-28 23:39] LABS: Albumin 3.8 g/dL (3.4-5.0); Bilirubin Total 0.2 mg/dL (0.2-1.0); Potassium 3.4 mmol/L (3.5-5.1); Protein, Total 6.8 g/dL (6.4-8.2)
--- NOTE | 2021-12-29 01:47 | ER ---
Nurse's Notes [facility] Name: Gloria Modi Age: 26 yrs Sex: Female : 1995 Arrival Date: 12/28/2021 Time: 22:15 Bed 15 Private MD: Diagnosis: UTI/ Urinary tract infection, site not specified Presentation: 12/28 22:52 Chief complaint: Patient states: burning with urination, bilateral flank pain x 3 days. tw5 Coronavirus screen: Vaccine status: Patient reports receiving the 1st dose of the Covid vaccine. moderna. Ebola Screen: Patient negative for fever greater than or equal to 101.5 degrees Fahrenheit, and additional compatible Ebola Virus Disease symptoms Patient denies exposure to infectious person. Patient denies travel to an Ebola-affected area in the 21 days before illness onset. Initial Sepsis Screen: Does the patient meet any 2 criteria? No. Patient's initial sepsis screen is negative. Does the patient have a suspected source of infection? Yes: Dysuria/Frequency/Urgency/UTI. Risk Assessment: Do you want to hurt yourself or someone else? Patient reports no desire to harm self or others. Onset of symptoms was December 25, 2021. 22:52 Method Of Arrival: Ambulatory tw5 22:52 Acuity: NICO 3 tw5 Historical: - Allergies: 22:54 Tylenol # 3; tw5 - Home Meds: 22:54 gabapentin 300 mg Oral cap 1 cap 3 times per day [Active]; ibuprofen 800 mg Oral tab 1 tw5 tab 3 times per day [Active]; Zoloft 50 mg Oral tab 1 tab once daily [Active]; - PMHx: 22:54 Bipolar disorder; PTSD; seperation anxiety; tw5 - Immunization history:: Adult Immunizations up to date. - Social history:: Smoking status: Patient reports the use of cigarette tobacco products. Screenin:30 Abuse screen: Denies threats or abuse. Denies injuries from another. ha1 22:30 Nutritional screening: No deficits noted. Tuberculosis screening: No symptoms or risk ha1 factors identified. Fall Risk None identified. Assessment: 22:28 General: Appears in no apparent distress. Behavior is calm, cooperative. Pain: ha1 Complains of pain in bilateral back flank pain. pain with urination. 22:28 Neuro: Level of Consciousness is awake, alert, obeys commands, Oriented to person, ha1 place, time, situation. Cardiovascular: Patient's skin is warm and dry. Respiratory: Airway is patent Trachea midline Respiratory effort is even, unlabored, Respiratory pattern is regular, symmetrical. GI: No signs and/or symptoms were reported involving the gastrointestinal system. Bowel sounds present X 4 quads. Abd is soft and non tender. : Reports burning with urination, urinary frequency. 23:28 Reassessment: Patient appears in no apparent distress at this time. Patient and/or ha1 family updated on plan of care and expected duration. Pain level reassessed. Patient is alert, oriented x 3, equal unlabored respirations, skin warm/dry/pink. 12/29 00:30 Reassessment: Patient and/or family updated on plan of care and expected duration. Pain ha1 level reassessed. Patient is alert, oriented x 3, equal unlabored respirations, skin warm/dry/pink. 01:25 Reassessment: Patient and/or family updated on plan of care and expected duration. Pain ha1 level reassessed. Patient is alert, oriented x 3, equal unlabored respirations, skin warm/dry/pink. pt. states " I feel tired. I will take a nap my pain has got better". 02:09 Reassessment: Patient and/or family updated on plan of care and expected duration. Pain ha1 level reassessed. Patient is alert, oriented x 3, equal unlabored respirations, skin warm/dry/pink. being discharged Patient states symptoms have improved. Vital Signs: 12/28 22:28 BP 93 / 62; Pulse 81; Resp 18 S; Pulse Ox 100% on R/A; ha1 22:52 BP 93 / 62; Pulse 81; Resp 18; Temp 98.6; Pulse Ox 100% on R/A; Weight 43.54 kg; Height tw5 5 ft. 0 in. (152.40 cm); Pain 10/10; 23:30 BP 87 / 67; Pulse 70; Resp 15 S; Pulse Ox 100% on R/A; ha1 12/29 01:17 BP 94 / 67; Pulse 68; Resp 16 S; Pulse Ox 100% on R/A; ha1 02:10 BP 94 / 67; Pulse 78; Resp 16 S; Pulse Ox 100% on R/A; ha1 12/28 22:52 Body Mass Index 18.75 (43.54 kg, 152.40 cm) tw5 ED Course: 12/28 22:00 Arm band placed on right wrist. ha1 22:15 Patient arrived in ED. ja2 22:22 Cristy Alaniz FNP-C is PHCP. kb 22:22 Humberto Nava MD is Attending Physician. kb 22:28 Patient has correct armband on for positive identification. Bed in low position. Call ha1 light in reach. Side rails up X 1. 22:48 Inserted saline lock: 20 gauge in left antecubital area, using aseptic technique. Blood ha1 collected. 22:54 Triage completed. tw5 23:22 Rosa Maria Stephens, RN is Primary Nurse. ha1 12/29 01:13 CT Abd/Pelvis - IV Contrast Only In Process Unspecified. EDMS 02:15 No provider procedures requiring assistance completed. IV discontinued, intact, ha1 bleeding controlled, No redness/swelling at site. Pressure dressing applied. Administered Medications: 12/28 23:23 Drug: NS 0.9% 1000 ml Route: IV; Rate: 1 bolus; Site: left antecubital; ha1 12/29 01:22 Follow up: Response: No adverse reaction; IV Status: Completed infusion; IV Intake: ha1 1000ml 01:55 Drug: Rocephin (cefTRIAXone) 1 grams Route: IV; Rate: calculated rate; Site: left ha1 antecubital; 02:15 Follow up: Response: No adverse reaction; IV Status: Completed infusion; IV Intake: 23lest0 Medication: 02:17 VIS not applicable for this client. ha1 Intake: 01:22 IV: 1000ml; Total: 1000ml. ha1 02:15 IV: 50ml; Total: 1050ml. ha1 Outcome: 01:46 Discharge ordered by . kb 02:15 Discharged to home ambulatory. ha1 02:15 Condition: stable 02:15 Discharge instructions given to patient, Instructed on discharge instructions, follow up and referral plans. medication usage, Demonstrated understanding of instructions, follow-up care, medications, Prescriptions given X 1. 02:17 Patient left the ED. ha1 Signatures: Dispatcher [employer] EDNY Cristy Alaniz FNP-C NEWSPAPER JOURNALIST-Stacy Flanagan ja2 Yarely Monet tw5 Rosa Maria Stephens, RN RN ha1
--- NOTE | 2021-12-29 01:47 | EDPHYS ---
Physician Documentation [facility] Name: Gloria Modi Age: 26 yrs Sex: Female : 1995 Arrival Date: 12/28/2021 Time: 22:15 Bed 15 Private MD: ED Physician Humberto Nava HPI: 12/29 00:51 This 26 yrs old Female presents to ER via Ambulatory with complaints of Possible Kidney kb Stone. 00:51 The patient presents with urinary symptoms, dysuria. Onset: The symptoms/episode kb began/occurred 3 day(s) ago. Modifying factors: The symptoms are alleviated by nothing, the symptoms are aggravated by urinating. Associated signs and symptoms: Pertinent positives: dysuria, nausea, vomiting, Pertinent negatives: fever. Severity of symptoms: At their worst the symptoms were mild, moderate, in the emergency department the symptoms are unchanged. The patient has experienced a previous episode. The patient has not recently seen a physician. Historical: - Allergies: 12/28 22:54 Tylenol # 3; tw5 - Home Meds: 22:54 gabapentin 300 mg Oral cap 1 cap 3 times per day [Active]; ibuprofen 800 mg Oral tab 1 tw5 tab 3 times per day [Active]; Zoloft 50 mg Oral tab 1 tab once daily [Active]; - PMHx: 22:54 Bipolar disorder; PTSD; seperation anxiety; tw5 - Immunization history:: Adult Immunizations up to date. - Social history:: Smoking status: Patient reports the use of cigarette tobacco products. ROS: 12/29 00:50 Constitutional: Negative for fever, chills, and weight loss. kb Abdomen/GI: Positive for abdominal pain, nausea and vomiting, Negative for diarrhea. : Positive for urinary symptoms, burning with urination. All other systems are negative. Exam: 00:50 Constitutional: This is a well developed, well nourished patient who is awake, alert, kb and in no acute distress. Head/Face: Normocephalic, atraumatic. ENT: Moist Mucous membranes Cardiovascular: Regular rate and rhythm with a normal S1 and S2. No gallops, murmurs, or rubs. No pulse deficits. Respiratory: Respirations even and unlabored. No increased work of breathing. Talking in full sentences Skin: Warm, dry with normal turgor. Normal color. MS/ Extremity: Pulses equal, no cyanosis. Neurovascular intact. Full, normal range of motion. Neuro: Awake and alert, GCS 15, oriented to person, place, time, and situation. Moves all extremities. Normal gait. Psych: Awake, alert, with orientation to person, place and time. Behavior, mood, and affect are within normal limits. 00:50 Abdomen/GI: Inspection: abdomen appears normal, Bowel sounds: normal, Palpation: soft, in all quadrants, mild abdominal tenderness, in the suprapubic area. 00:50 Back: CVA tenderness, that is mild, is noted bilaterally. Vital Signs: 12/28 22:28 BP 93 / 62; Pulse 81; Resp 18 S; Pulse Ox 100% on R/A; ha1 22:52 BP 93 / 62; Pulse 81; Resp 18; Temp 98.6; Pulse Ox 100% on R/A; Weight 43.54 kg; Height tw5 5 ft. 0 in. (152.40 cm); Pain 10/10; 23:30 BP 87 / 67; Pulse 70; Resp 15 S; Pulse Ox 100% on R/A; ha1 12/29 01:17 BP 94 / 67; Pulse 68; Resp 16 S; Pulse Ox 100% on R/A; ha1 02:10 BP 94 / 67; Pulse 78; Resp 16 S; Pulse Ox 100% on R/A; ha1 12/28 22:52 Body Mass Index 18.75 (43.54 kg, 152.40 cm) tw5 MDM: 12/28 22:29 Patient medically screened. kb 12/29 00:49 Data reviewed: vital signs, nurses notes. Data interpreted: Pulse oximetry: on room air kb is 100 %. Interpretation: normal. 01:46 Counseling: I had a detailed discussion with the patient and/or guardian regarding: the kb historical points, exam findings, and any diagnostic results supporting the discharge/admit diagnosis, lab results, radiology results, the need for outpatient follow up, a family practitioner, to return to the emergency department if symptoms worsen or persist or if there are any questions or concerns that arise at home. 12/28 22:43 Order name: CBC with Diff; Complete Time: 23:34 kb 12/28 22:43 Order name: CMP; Complete Time: 23:46 kb 12/28 22:43 Order name: Urine Microscopic Only; Complete Time: 23:11 kb 12/28 22:56 Order name: Urine Dipstick-Ancillary; Complete Time: 22:58 [facility] 12/28 23:13 Order name: Urine Culture [facility] 12/28 22:43 Order name: CT Abd/Pelvis - IV Contrast Only kb 12/28 22:43 Order name: IV Saline Lock; Complete Time: 23:23 kb 12/28 22:43 Order name: Labs collected and sent; Complete Time: 23:23 kb 12/28 22:43 Order name: Urine Dipstick-Ancillary (obtain specimen); Complete Time: 23:04 kb 12/28 22:43 Order name: Urine Test (obtain specimen); Complete Time: 23:04 kb Administered Medications: 12/28 23:23 Drug: NS 0.9% 1000 ml Route: IV; Rate: 1 bolus; Site: left antecubital; [facility] 12/29 01:22 Follow up: Response: No adverse reaction; IV Status: Completed infusion; IV Intake: ha1 1000ml 01:55 Drug: Rocephin (cefTRIAXone) 1 grams Route: IV; Rate: calculated rate; Site: left [facility] antecubital; 02:15 Follow up: Response: No adverse reaction; IV Status: Completed infusion; IV Intake: [id number] Disposition: 02:23 Co-signature as Attending Physician, Humberto Nava MD. rn Disposition Summary: 12/29/21 01:46 Discharge Ordered Location: Home kb Condition: Stable kb Diagnosis - UTI/ Urinary tract infection, site not specified kb Followup: kb - With: Emergency Department - When: As needed - Reason: Worsening of condition Followup: kb - With: Private Physician - When: 2 - 3 days - Reason: Recheck today's complaints, Continuance of care, Re-evaluation by your physician Discharge Instructions: - Discharge Summary Sheet kb - Urinary Tract Infection, Adult, [id number] kb Forms: - Medication Reconciliation Form kb - Thank You Letter kb - Work release form kb - Antibiotic Education kb - Prescription Opioid Use kb Prescriptions: - Augmentin 875-125 mg Oral Tablet - take 1 tablet by ORAL route every 12 hours for 10 days; 20 tablet; Refills: 0, kb Product Selection Permitted Signatures: Dispatcher [employer] EDCristy Cooper, REAL ESTATE OFFICE MANAGER-C REAL ESTATE OFFICE MANAGER-Humberto Fuentes MD MD rn Wood, Tiffany tw5 Rosa Maria Stephens, RN RN ha1
[2021-12-29] MEDS ORDERED: CEFTRIAXONE 1000 MG/VIAL ONE (02:04)
[2021-12-29] MEDS ORDERED: NA CHLORIDE 0.9% 50 ML ONE (02:05)
--- NOTE | 2021-12-29 09:50 | RAD REPORT ---
EXAM DESCRIPTION: CT - Abdomen Pelvis W Contrast - 12/29/2021 1:11 am CLINICAL HISTORY: 26 years, Female, flank pain, r/o pyelonephritis COMPARISON: 11/10/2021 TECHNIQUE: Contrast-enhanced images of the abdomen and pelvis were performed utilizing 5 mm slice th ickness at 5 mm interval reconstruction from the lung bases to the ischial tuberosities after the adm inistration of IV contrast. In addition multiplanar reformats in the coronal and sagittal plane were obtained and reviewed. This exam was performed according to our departmental dose-optimization protocol, which includes auto mated exposure control, adjustment of the mA and/or kV according to patient size and/or use of iterat adeola reconstruction technique. FINDINGS: The lung bases demonstrate to be clear. The liver, gallbladder, pancreas, spleen and adrenal glands demonstrate to be unremarkable, no focal lesions are noted. The kidneys demonstrate normal uptake of contrast media. No evidence for nephrolithiasis and/or hydro nephrosis. There is a pole left simple renal cyst measuring 1.1 cm on image 17. No follow-up is recom mended. Grossly the unopacified stomach, small bowel and large bowel demonstrate to be within normal limits. There are no significant bowel dilatation. There is mild fecal stasis. The urinary bladder demonstrate to be unremarkable. The uterus is retroflexed. There are no adnexal masses. The aorta demonstrate to be normal. There is no retroperitoneal lymphadenopathy. There i s no ascites. The rest of the soft tissue and bony structures are within normal limits. IMPRESSION: No evidence for nephrolithiasis and/or hydronephrosis. 1.1 cm left simple renal cyst. Mild fecal stasis. Electronically signed by: Beau Betts MD 12/29/2021 1:36 AM CDT Due to temporary technical issues with the PACS/Fluency reporting system, reports are being signed by the in house radiologists without review as a courtesy to insure prompt reporting. The interpreting radiologist is fully responsible for the content of the report.
[2021-12-30 11:40] VITALS: TEMP 98.6; O2SAT 100
[2021-12-30 11:54] VITALS: BP 93/62
== END 2021-12-29 02:17 | disposition home or self-care (01) ==
LOC: ER 22:12
DX: N39.0 Urinary tract infection, site not specified (principal); Z72.0 Tobacco use
CPT/HCPCS: 96365; 96361; 87088; 85025; 87086; 36415; 87077; 87186; 80053; 74177; 99284; Q9967; J7030; 81003; 81015

== ENCOUNTER 2022-03-11 21:06 | Emergency (ER) | payer OTHER ==
--- OUTSIDE RECORDS SUMMARY | 2022-03-11 21:16 | XMS REPORT | Continuity of Care Document ---
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 [facility] BP Diastolic 2019-07-01 00:00:00 82 mm[Hg] [facility] Height 2019-07-01 00:00:00 61 [in_i] [facility] BMI (Body Mass 2019-07-01 00:00:00 17 kg/m2 [facility] Index) Group BP Systolic 2019-07-01 00:00:00 119 mm[Hg] [facility] Body Weight 2019-07-01 00:00:00 90 [lb_av] [facility] BP Diastolic 2019-06-10 00:00:00 73 mm[Hg] [facility] Height 2019-06-10 00:00:00 61 [in_i] [facility] BMI (Body Mass 2019-06-10 00:00:00 18.9 kg/m2 [facility] Index) Group BP Systolic 2019-06-10 00:00:00 111 mm[Hg] [facility] Body Weight 2019-06-10 00:00:00 100 [lb_av] [facility] BP Diastolic 2019-05-20 00:00:00 48 mm[Hg] [facility] Height 2019-05-20 00:00:00 61 [in_i] [facility] BMI (Body Mass 2019-05-20 00:00:00 18.9 kg/m2 [facility] Index) Group BP Systolic 2019-05-20 00:00:00 117 mm[Hg] [facility] Body Weight 2019-05-20 00:00:00 100.1 [lb_av] [facility] BP Diastolic 2019-04-28 00:00:00 73 mm[Hg] [facility] Height 2019-04-28 00:00:00 61 [in_i] [facility] BMI (Body Mass 2019-04-28 00:00:00 19.9 kg/m2 [facility] Index) Group BP Systolic 2019-04-28 00:00:00 140 mm[Hg] [facility] Body Weight 2019-04-28 00:00:00 105.4 [lb_av] [facility] BP Diastolic 2019-04-24 00:00:00 57 mm[Hg] [facility] Height 2019-04-24 00:00:00 61 [in_i] [facility] BMI (Body Mass 2019-04-24 00:00:00 20 kg/m2 [facility] Index) Group BP Systolic 2019-04-24 00:00:00 120 mm[Hg] [facility] Body Weight 2019-04-24 00:00:00 105.7 [lb_av] [facility] BP Diastolic 2019-04-23 00:00:00 70 mm[Hg] [facility] Height 2019-04-23 00:00:00 61 [in_i] [facility] BMI (Body Mass 2019-04-23 00:00:00 20.1 kg/m2 [facility] Medical Index) Group BP Systolic 2019-04-23 00:00:00 110 mm[Hg] [facility] BP Diastolic 2019-04-16 00:00:00 66 mm[Hg] [facility] Height 2019-04-16 00:00:00 61 [in_i] [facility] BMI (Body Mass 2019-04-16 00:00:00 19.8 kg/m2 [facility] Medical Index) Group BP Systolic 2019-04-16 00:00:00 102 mm[Hg] [facility] Body Weight 2019-04-16 00:00:00 104.6 [lb_av] [facility] BP Diastolic 2019-04-02 00:00:00 70 mm[Hg] [facility] Height 2019-04-02 00:00:00 61 [in_i] [facility] BMI (Body Mass 2019-04-02 00:00:00 19.9 kg/m2 [facility] Medical Index) Group BP Systolic 2019-04-02 00:00:00 122 mm[Hg] [facility] Body Weight 2019-04-02 00:00:00 105.5 [lb_av] [facility] BP Diastolic 2019-03-30 00:00:00 74 mm[Hg] [facility] Height 2019-03-30 00:00:00 61 [in_i] [facility] BMI (Body Mass 2019-03-30 00:00:00 19.8 kg/m2 [facility] Medical Index) Group BP Systolic 2019-03-30 00:00:00 118 mm[Hg] [facility] Body Weight 2019-03-30 00:00:00 105 [lb_av] [facility] BP Diastolic 2019-03-27 00:00:00 76 mm[Hg] [facility] Height 2019-03-27 00:00:00 61 [in_i] [facility] BMI (Body Mass 2019-03-27 00:00:00 19.9 kg/m2 [facility] Index) Group BP Systolic 2019-03-27 00:00:00 121 mm[Hg] [facility] Body Weight 2019-03-27 00:00:00 105.3 [lb_av] [facility] BP Diastolic 2019-03-09 00:00:00 72 mm[Hg] [facility] Height 2019-03-09 00:00:00 61 [in_i] [facility] BMI (Body Mass 2019-03-09 00:00:00 19.6 kg/m2 [facility] Index) Group BP Systolic 2019-03-09 00:00:00 116 mm[Hg] [facility] Body Weight 2019-03-09 00:00:00 103.6 [lb_av] [facility] Height 2019-03-04 00:00:00 61 [in_i] [facility] Procedures Procedure Date / Time Performing Clinician Source Performed Removal of Tonsils 2021-08-14 00:00:00 [facility] XR, toe(s), 2 or more 2021-05-22 00:00:00 [facility] view Group US(FBP)W/0 NON STRESS 2019-04-28 00:00:00 [facility] TEST Group US(FBP)W/0 NON STRESS 2019-04-23 00:00:00 [facility] TEST Group US, obstetric, limited 2019-04-16 00:00:00 [facility] US(FBP)W/0 NON STRESS 2019-04-16 00:00:00 [facility] TEST Group US(FBP)W/0 NON STRESS 2019-04-02 00:00:00 [facility] TEST Group non-stress test 2019-04-02 00:00:00 [facility] US(FBP)W/0 NON STRESS 2019-03-30 00:00:00 [facility] representative [facility] TEST Group non-stress test 2019-03-30 00:00:00 [facility] US, obstetric, limited 2019-03-27 [facility]:00[facility] US(FBP)W/0 NON STRESS 2019-03-27 00:00:00 [facility] key account representative Medical TEST Group ULTRASOUND, 2019-03-04 00:00[facility]00 [facility] UTERUS REAL TIME WITH Group IMAGE DOC, AND MATERNAL EVAL PLUS DETAILED ANATOMIC EXAMINATION, TRANSABDOMINAL APPROACH; SINGLE OR FIRST GESTATION Tubal Ligation [facility] Plan of Care Planned Activity Planned Date Details Comments Source Future Scheduled Test 2022-02-15 INFLUENZA VACCINE [facility] 18:27:03 [code = INFLUENZA VACCINE] Future Scheduled Test 2022-02-15 HEPATITIS B VACCINES [facility] 18:27:03 (1 of 3 - 3-dose series) [code = HEPATITIS B VACCINES (1 of 3 - 3-dose series)] Future Scheduled Test 2022-02-15 COVID-19 VACCINE [facility] 18:27:03 (#1) [code = COVID-19 VACCINE (#1)] Future Scheduled Test 2022-02-15 Screening for [facility] 18:27:03 Chlamydia trachomatis (procedure) [code = 041915163] Future Scheduled Test 2022-02-15 Screening for [facility] 18:27:03 malignant neoplasm of cervix (procedure) [code = 041863541] Diagnostic Test 2022-01-17 rapid influenza [facility] Pending 00:00:00 virus A + B and SARS Group CoV + SARS CoV 2 Ag panel, IA, upper respiratory specimen [code = rapid influenza virus A + B and SARS CoV + SARS CoV 2 Ag panel, IA, upper respiratory specimen] Future Scheduled Test 2022-01-13 [facility] Influenza Aionex 00:00:00 Seasonal (>/= 19 yrs) [code = IMM Influenza Seasonal (>/= 19 yrs)] Future Scheduled Test 2022-01-13 [facility] Influenza Aionex 00:00:00 Seasonal (>/= 19 yrs) [code = IMM Influenza Seasonal (>/= 19 yrs)] Future Scheduled Test 2021-12-14 Screening for [facility] 04:05:20 malignant neoplasm of cervix (procedure) [code = 845195739] Future Scheduled Test 2021-12-14 INFLUENZA VACCINE [facility] 04:05:20 [code = INFLUENZA VACCINE] Future Scheduled Test 2021-12-14 HEPATITIS B VACCINES [facility] 04:05:20 (1 of 3 - 3-dose series) [code = HEPATITIS B VACCINES (1 of 3 - 3-dose series)] Future Scheduled Test 2021-12-14 COVID-19 VACCINE [facility] 04:05:20 (#1) [code = COVID-19 VACCINE (#1)] Future Scheduled Test 2021-12-14 Screening for [facility] 04:05:20 Chlamydia trachomatis (procedure) [code = 459116561] Future Scheduled Test 2021-01-13 IMM Influenza [facility] [...] malignant neoplasm of cervix (procedure) [code = 888617396] Future Scheduled Test 2018 [facility] 00:[facility]:00 malignant neoplasm of cervix (procedure) [code = 757918294] Future Scheduled Test 2018 [facility] 00:00:00 malignant neoplasm of cervix (procedure) [code = 315550664] Future Scheduled Test 2018 [facility] 00:00:00 malignant neoplasm of cervix (procedure) [code = 705762610] Future Scheduled Test 2009 COVID-19 Vaccine (1) [facility] 00:00:00 [code = COVID-19 Vaccine (1)] Future Scheduled Test 2009 COVID-19 Vaccine (1) [facility] 00:00:00 [code = COVID-19 Vaccine (1)] Future Scheduled Test 1998-02-26 COVID-19 Vaccine [facility] 00:00:00 (#1) [code = COVID-19 Vaccine (#1)] Future Scheduled Test 1998-02-26 COVID-19 Vaccine [facility] 00:00:00 (#1) [code = COVID-19 Vaccine (#1)] Future Scheduled Test 1997 Fluoride Varnish [facility] 00:00:00 [code = Fluoride Varnish] Future Scheduled Test Screening for [facility] malignant neoplasm of cervix (procedure) [code = 387184153] Future Scheduled Test INFLUENZA VACCINE [facility] [code = INFLUENZA VACCINE] Future Scheduled Test CHLAMYDIA SCREENING [facility] [code = CHLAMYDIA SCREENING] Future Scheduled Test COVID-19 VACCINE (1) [facility] [code = COVID-19 VACCINE (1)] Future Appointment 2022-04-28 Eh Presley [address] [facility] 00:00:00 [facility] [address]; , [place] [address] Instructions [facility] Encounters Start End Encounter Admission Attending Care Care Encounter Source Date/Time Date/Time Type Type Clinicians Facility Department ID 2022-03-02 Inpatient TEXANA TEXANA [id number] [place] 13:57:04 [id number] [place] 2022-01-22 Outpatient [facility] [id number] [place] 15:22:[id number] [facility] 2022-01-14 Outpatient [facility] [id number] [place] 19:22:[id number] [facility] 2022-01-11 Outpatient [facility] [id number] [place] 15:52:[id number] [facility] 2022-03-16 2022-03-16 Outpatient LUKAS KONG [facility] [id number] [facility] 14:00:00 14:00:00 LUKAS CALHOUN [facility] 2022-02-20 2022-02-20 Outpatient Elin MMG MMG [id number] -2021 [facility] 00:00:00 00:00:00 1108 [facility] 2022-02-20 2022-02-20 Telephone CHEMO [place] [id number] [facility] 00:00:00 00:00:00 [facility] [id number] [facility] [id number] Eliel as TERESE?BLEA [id number] [address] MEDICAL OFFICE BUILDING 2022-02-20 2022-02-20 Eh [place] - [id number] M atagor 00:00:00 00:00:00 [facility] Medical OPTICAL INSTRUMENTS SUPERVISOR: [address] [facility] [address], [place] [address] , Ph. 2022-02-09 2022-02-09 [facility] [id number] [facility] 00:00:00 00:00:00 1028 [facility] 2022-01-24 2022-01-24 Outpatient [facility] [id number] [place] 08:45:00 08:45:00 Health 2022-01-22 2022-01-22 Telephone Lj [facility] [id number] Univers 00:00:00 00:00:00 [facility] [id number] ity [facility] [id number] Eliel as TERESE?BLEA [id number] [place] k[address] 2022-01-17 2022-01-17 Outpatient Elin [facility] [id number] [place] 00:00:00 00:00:00 1005 [facility] 2022-01-17 2022-01-17 Eh [facility] [place] - [id number] M atagor 00:00:00 00:00:00 [facility] Medical OPTICAL INSTRUMENTS SUPERVISOR: [address] [facility] [address], [place] [address] , Ph. 2022-01-10 2022-01-10 Telephone Lj [facility] [id number] Univers 00:00:00 00:00:00 [facility] [id number] ity [facility] [id number] Eliel as TERESE?BLEA [id number] [place] kellie[address] OFFICE [facility] 2022-01-05 2022-01-05 Office Lj [facility] [id number] Univers 16:00:00 16:52:54 Visit [facility] [id number] ity [facility] [id number] Eliel as TERESE?BLEA [id number] [address] OFF[address] [facility] 2022-01-05 2022-01-05 Outpatient Rocky LUKAS CALHOUN [facility] [id number] Univers 16:00:00 16:52:54 LUKAS CALHOUN ity [facility] 2022-01-05 2022-01-05 Jayy Lj [facility] [id number] Univers 00:00:00 00:00:00 (Out) [facility] [id number] ity of [place] [id number] Eliel as TERESE?BLEA [id number] [address] [facility] 2022-01-04 2022-01-04 Outpatient Presley_Gemma [facility] [id number] [place] 00:00:00 00:00:00 0922 [facility] 2022-01-04 2022-01-04 Eh [facility] [place] - [id number] M atagor 00:00:00 00:00:00 [facility] OPTICAL INSTRUMENTS SUPERVISOR: [address] [facility] [address], [place] [address] , Ph. 2021-10-23 2021-10-23 Outpatient Presley_Gemma [facility] [id number] [place] 02:43:00 02:43:00 0711 [facility] 2021-10-23 2021-10-23 Eh [facility] [place] - [id number] M atagor 00:00:00 00:00:00 [facility] OPTICAL INSTRUMENTS SUPERVISOR: [address] [facility] [address], [place] [address] , Ph. 2021-10-05 2021-10-05 Outpatient Presley_Gemma [facility] [id number] [place] 09:37:00 09:37:00 0623 [facility] 2021-10-05 2021-10-05 Eh [facility] [place] - [id number] M atagor 00:00:00 00:00:00 Riccardo Andrade OPTICAL INSTRUMENTS SUPERVISOR: [address] [address] , Ph. 2021-10-04 2021-10-04 Outpatient Hawkins_M MMG [facility] [id number] -2021 [place] 04:46:00 04:46:00 0622 Medical Group 2021-09-14 2021-09-14 [facility] [id number] [place] 04:46:00 04:46:00 0602 Medical [facility] 2021-09-14 2021-09-14 Maritza [facility] [place] - [id number] [place] 00:00:00 00:00:00 Discovery alida Britt SUPERVISOR [employer]-C: [address] [address] , Ph. 2021-09-05 2021-09-05 [facility] [id number] [place] 10:23:00 10:23:00 0524 Medical Group 2021-09-05 2021-09-05 Loki Ramos [facility] [place] - [id number] [place] 00:00:00 00:00:00 MD: Harika Daly [address], Otolaryngol [facility] [address] , Ph. 2021-08-24 2021-08-24 [facility] [id number] [place] 10:31:00 10:31:00 0512 Medical Group 2021-08-14 2021-08-14 [place] [id number] -2021 [place] 04:26:00 04:26:00 0502 Medical Group 2021-08-14 2021-08-14 [place] [id number] -2021 [place] 04:26:00 04:26:00 0509 [facility] 2021-07-27 2021-07-27 [facility] [id number] -2021 [place] 12:50:00 12:50:00 0414 [facility] 2021-07-27 2021-07-27 Outpatient AMBREEN_FAR [place] [id number] -2021 [place] 02:53:00 02:53:00 HANA 0414 [facility] 2021-07-27 2021-07-27 Eh [facility] [place] - [id number] M atagor 00:00:00 00:00:00 Liz[facility] Bean Medical Medical OPTICAL INSTRUMENTS SUPERVISOR: [address] [address] , Ph. 2021-07-25 2021-07-25 Outpatient Yan_W [facility] [id number] [place] 11:17:00 11:17:00 0412 Medical Group 2021-07-25 2021-07-25 [facility] [id number] [place] 11:17:00 11:17:00 0413 Medical Group 2021-07-25 2021-07-25 Loki Ramos [facility] [place] - [id number] [place] 00:00:00 00:00:00 MD: Harika Daly [facility] [address] [place] [address], Otolaryngol [facility] [address] , Ph. 2021-07-24 2021-07-24 Outpatient Hawkins_M [facility] [id number] -2021 [place] 02:56:00 02:56:00 0411 Medical Group 2021-07-24 2021-07-24 Eh [place] - [id number] M at[place]or 00:00:00 00:00:00 [facility] Medical OPTICAL INSTRUMENTS SUPERVISOR: [address] [facility] [address], [place] [address] , Ph. 2021-07-12 2021-07-12 Outpatient Hawkins_M MMG MMG [id number] -2021 [place] 03:56:00 03:56:00 0330 Medical Group 2021-07-12 2021-07-12 Outpatient Hawkins_M MMG MMG [id number] -2021 [place] 03:56:00 03:56:00 0331 Medical Group 2021-07-12 2021-07-12 Eh MMG [place] - [id number] M at[place] 00:00:00 00:00:00 Lizbet Bean, Medical Medical OPTICAL INSTRUMENTS SUPERVISOR: [address] [facility] [address], [place] [address] , Ph. 2021-06-21 2021-06-21 Outpatient Hawkins_M MMG MMG [id number] [place] 04:09:00 04:09:00 0309 Medical Group 2021-06-21 2021-06-21 Eh MMG [place] - [id number] M at[place] 00:00:00 00:00:00 Lizbet Barrerakins, Medical Medical OPTICAL INSTRUMENTS SUPERVISOR: [address] [facility] [address], [place] [address] , Ph. 2021-06-02 2021-06-02 Outpatient Hawkins_M MMG MMG [id number] -2021 [place] 03:48:00 03:48:00 0218 Medical Group 2021-06-02 2021-06-02 Eh MMG [place] - [id number] M at[place] 00:00:00 00:00:00 Lizbet Bean, Medical Medical OPTICAL INSTRUMENTS SUPERVISOR: [address] [facility] [address], [place] [address] , Ph. 2021-05-22 2021-05-22 Outpatient Hawkins_M MMG MMG [id number] -2021 [place] 12:37:00 12:37:00 0207 Medical Group 2021-05-22 2021-05-22 Eh MMG [place] - [id number] M at[place] 00:00:00 00:00:00 Lizbet Bean Medical Medical OPTICAL INSTRUMENTS SUPERVISOR: [address] [facility] [address], [place] [address] , Ph. 2021-05-10 2021-05-10 Outpatient AMBREEN_BEENA [facility] [id number] [place] 05:02:00 05:02:00 JASPAL 0126 [facility] 2021-05-09 2021-05-09 Outpatient Hawkins_M MMG MMG [id number] -2021 [place] 11:18:00 11:18:00 0125 [facility] 2021-05-09 2021-05-09 Eh [place] - [id number] M at[place]or 00:00:00 00:00:00 Lizbet Bean Medical Medical OPTICAL INSTRUMENTS SUPERVISOR: [address] [facility] [address], [place] [address] , Ph. 2021-04-12 2021-04-12 Outpatient Hawkins_M MMG MMG [id number] -2021 [place] 04:07:00 04:07:00 0124 [facility] 2021-04-12 2021-04-12 Outpatient Hawkins_M MMG MMG [id number] -2021 [place] 04:07:00 04:07:00 0121 [facility] 2021-03-23 2021-03-23 Outpatient Hawkins_M MMG MMG [id number] -2020 [place] 04:37:00 04:37:00 1209 [facility] 2021-03-23 2021-03-23 Outpatient Hawkins_M MMG MMG [id number] -2020 [place] 04:37:00 04:37:00 1216 [facility] 2021-03-23 2021-03-23 Outpatient Hawkins_M MMG MMG [id number] -2020 [place] 04:37:00 04:37:00 1228 [facility] 2021-03-23 2021-03-23 Eh [place] - [id number] M at[place]or 00:00:00 00:00:00 Lizbet Bean Medical Medical OPTICAL INSTRUMENTS SUPERVISOR: 600 [facility] [address], [place] [address] , Ph. 2020-05-19 2020-05-19 Outpatient Hawkins_M MMG MMG [id number] -2020 [place] 03:02:00 03:02:00 0209 [facility] 2020-05-19 2020-05-19 Outpatient Hawkins_M MMG MMG [id number] -2020 [place] 03:02:00 03:02:00 0224 [facility] 2020-05-19 2020-05-19 Outpatient Hawkins_M MMG MMG [id number] -2020 [place] 03:02:00 03:02:00 0204 [facility] 2020-05-18 2020-05-18 Outpatient Rutledge_L MMG MMG [id number] [place] 03:00:00 03:00:00 0203 [facility] 2020-03-02 2020-03-02 Outpatient Rutledge_L MMG MMG [id number] [place] 02:24:00 02:24:00 1118 Medical Group 2020-01-08 2020-01-08 Outpatient AMBREEN_FAR MEHOP MEHOP [id number] [place] 01:41:00 01:41:00 HANA [facility]25 [facility] 2020-01-08 2020-01-08 Outpatient AMBREEN_FAR MEHOP MEHOP [id number] [place] 01:41:00 01:41:00 HANA 1012 [facility] 2020-01-08 2020-01-08 Outpatient AMBREEN_FAR MEHOP MEHOP [id number] [place] 01:41:00 01:41:00 HANA 1209 [facility] 2019-12-23 2019-12-23 Outpatient Rutledge_L MMG MMG [id number] [place] 12:21:00 12:21:00 1008 Medical Group 2019-10-31 2019-10-31 Outpatient Rutledge_L MMG MMG [id number] [place] 07:51:00 07:51:00 0718 [facility] 2019-10-30 2019-10-30 Outpatient Rutledge_L MMG MMG [id number] [place] 04:04:00 04:04:00 0717 Medical Group 2019-10-30 2019-10-30 Luis Felipe MMG [place] - [id number] M at[place]or 00:00:00 00:00:00 Discovery alida Hernadez MD: [address] [address] , Ph. [phone] 2019-09-02 2019-09-02 Outpatient Rutledge_L MMG MMG [id number] [place] 05:24:00 05:24:00 0520 Medical Group 2019-09-02 2019-09-02 Outpatient [facility] [id number] 05:24:00 05:24:00 [id number] [facility] 2019-09-02 2019-09-02 Outpatient [facility] [id number] 05:24:00 05:24:00 [id number] [facility] 2019-09-02 2019-09-02 Outpatient [facility] [id number] 05:24:00 05:24:00 [id number] [facility] 2019-07-07 2019-07-07 Outpatient [facility] [id number] 09:58:00 09:58:00 [id number] [facility] 2019-07-07 2019-07-07 Outpatient [facility] [id number] 09:58:00 09:58:00 [id number] [facility] 2019-07-01 2019-07-01 Outpatient [facility] [id number] 08:57:00 08:57:00 [id number] [facility] 2019-07-01 2019-07-01 Anabel [facility] [place] - [id number] M [place] 00:00:00 00:00:00 George Hoffman Medical Medicalvin yeager MD: [address] [address] , Ph. [phone] 2019-06-11 2019-06-11 Outpatient Rutledge_L MMG [facility]G [address] [place] 07:31:00 07:31:00 0227 [facility] 2019-06-10 2019-06-10 Outpatient [facility]_L [facility]G [facility] [address] [place] 01:13:00 01:13:00 0226 [facility] 2019-06-10 2019-06-10 Anabel MMG [place] - [id number] M [place] 00:00:00 00:00:00 George Hoffman, Medical Medica toy MD: 600 [facility] [address], [place] [address] , Ph. [phone] 2019-06-09 2019-06-09 Outpatient Rutledge_L MMG MMG [address] [place] 10:05:00 10:05:00 0225 [facility] 2019-05-26 2019-05-26 Outpatient Rut[facility]_L MMG [facility]G [address] [place] 10:08:00 10:08:00 0218 [facility] 2019-05-24 2019-05-24 Outpatient Rutledge_L MMG [facility]G [address] [place] 01:23:00 01:23:00 0209 [facility] 2019-05-20 2019-05-20 Outpatient Rutledge_L MMG [facility]G [address] [place] 04:23:00 04:23:00 0205 [facility] 2019-05-20 2019-05-20 Anabel MMG [place] - [id number] M [place] 00:00:00 00:00:00 George Hoffman Medical Medica toy MD: 600 [facility] [address], [place] [address] , Ph. [phone] 2019-05-15 2019-05-15 Outpatient Rutledge_L MMG MMG [address] [place] 10:18:00 10:18:00 0204 [facility] 2019-05-12 2019-05-12 Outpatient Rutledge_L MMG MMG [address] [place] 02:38:00 02:38:00 0128 [facility] 2019-05-02 2019-05-02 Outpatient Rutledge_L MMG MMG [address] [place] 10:43:00 10:43:00 0118 Medical Group 2019-04-28 2019-04-28 Outpatient Rutledge_L MMG MMG [address] [place] 11:48:00 11:48:00 0114 [facility] 2019-04-28 2019-04-28 Luis Felipe MMG [place] - [id number] M [place] 00:00:00 00:00:00 Discovery alida Hernadez MD: [address] [place] [address] , Ph. [phone] 2019-04-27 2019-04-27 Outpatient Rut[facility]_L MMG MMG [address] [place] 11:34:00 11:34:00 0113 Medical Group 2019-04-26 2019-04-26 Outpatient Rutledge_L MMG MMG [address] [place] 12:05:00 12:05:00 0112 Medical Group 2019-04-24 2019-04-24 Outpatient Rutledge_L MMG MMG [address] [place] 04:21:00 04:21:00 0110 Medical Group 2019-04-24 2019-04-24 Harper Ewing MMG [place] - [id number] [place] 00:00:00 00:00:00 Discovery alida Strange NP: [address] [place] [address] , Ph. [phone] 2019-04-23 2019-04-23 Outpatient Rutledge_L MMG MMG [address] [place] 12:43:00 12:43:00 0109 Medical Group 2019-04-23 2019-04-23 Luis Felipe MMG [place] - [id number] M [place] 00:00:00 00:00:00 Discovery alida Hernadez MD: [address] [place] [address] , Ph. [phone] 2019-04-19 2019-04-19 Outpatient Rutledge_L MMG MMG [address] [place] 09:06:00 09:06:00 0105 Medical [facility] 2019-04-19 2019-04-19 [facility] [place] 09:06:00 09:06:00 0108 Medical [facility] 2019-04-16 2019-04-16 Outpatient Rutledge_L MMG [facility] [address] [place] 05:03:00 05:03:00 0102 [facility] 2019-04-16 2019-04-16 [facility] [address] [place] 05:03:00 05:03:00 0103 [facility] 2019-04-16 2019-04-16 Luis Felipe [facility] [place] - [id number] M [place] 00:00:00 00:00:00 Discovery alida Hernadez MD: [address] [place], [place] [address] , Ph. [phone] 2019-04-02 2019-04-02 Anabel [facility] [place] - [id number] M [place] 00:00:00 00:00:00 George Hoffman Medical Medica toy MD: [address] [place], [place] [address] , Ph. [phone] 2019-03-30 2019-03-30 Anabel [facility] [place] - [id number] M [place] 00:00:00 00:00:00 George Hoffman Medical Medicalvin yeager MD: [address] [place] [address] , Ph. [phone] 2019-03-27 2019-03-27 Anabel [facility] [place] - [id number] M at[place] 00:00:00 00:00:00 George Hoffman Medical Medicalvin yeager MD: [address] [place] [address] , Ph. [phone] 2019-03-09 2019-03-09 Harper Ewing [facility] [place] - [id number] 5 [place] 00:00:00 00:00:00 Discovery alida Strange WHNP: 600 [facility] [address], [place] [address] , Ph. [phone] 2019-03-04 2019-03-04 Luis Felipe JADE [place] - [id number] M [place] 00:00:00 00:00:00 Discovery alida Hernadez MD: [address] [place] [address] [address], [place] [address] , Ph. [phone] Results Test Description Test Time Test Comments Results Result Comments Source Influenza virus A and B and SARS-CoV+SARS-CoV-2 (COVID -19) Ag 2022-01-17 16:31:00 panel - Upper respiratory specimen by Rapid immunoassay Test Item Value Reference Range Interpretation Comme nts RAPID SARS COV (test code = RAPID SARS COV) negative RAPID FLU A (test code = RAPID FLU A) negative RAPID FLU B (test code = RAPID FLU B) negative [facility] [id number] 16:06:15 Test Item Value Reference Range Interpretation Comments Test (test code = negative Test) [facility], [id number] 16:06:15 Test Item Value Reference Range Interpretation Comments Test (test code = negative Test) [facility] W Reflex Culture panel - Urine 2021-10-05 07:44:00 Test Item Value Reference Range Interpretation Comments Color of Urine by Auto (test code lt. yellow = 91957-3) Appearance of Urine (test code = SL cloudy clear 5767-9) Glucose [Mass/volume] in Urine negative negative (test code = 2350-7) bilirubin, urine (test code = negative negative bilirubin, urine) ketone, urine (test code = negative negative ketone, urine) Specific gravity of Urine by 1.015 1.003-1.030 Automated test strip (test code = 63661-4) Hemoglobin [Presence] in Urine by small negative H Test strip (test code = 5794-3) pH of Urine (test code = 2756-5) 6.500 5-9 protein urine (UA) (test code = negative negative protein urine (UA)) Urobilinogen [Presence] in Urine 0.2 E.U./dL 0.2-1.0 (test code = 52833-3) Nitrite [Presence] in Urine by positive negative Test strip (test code = 5802-4) urine leukocyte esterase (test =1 negative H code = urine leukocyte esterase) Erythrocytes [Presence] in Urine =4-6 0-5 H (test code = 66065-6) WBC, urine (test code = WBC, =5-9 0-5 H urine) bacteria, urine (test code = full field none detect H bacteria, urine) Casts [#/area] in Urine sediment =2-5 none detect by Automated count (test code = 75770-6) urine culture added? (test code = yes urine culture added?) squamous epithelial cell urine =6-10 0-5 (test code = squamous epithelial cell urine) mucus, urine (test code = mucus, =1 none detect urine) [facility] W Auto Differential panel - [id number] 07:44:00 Test Item Value Reference Range Interpretation Comments white blood count (test code = 6.7 K/uL 4.0-11.5 white blood count) red blood count (test code = red 4.89 M/uL 3.80-5.20 blood count) hemoglobin (test code = 12.5 g/dL 10.5-15.7 hemoglobin) hematocrit (test code = 40.6 % 34.0-50.0 hematocrit) MCV [Entitic volume] (test code = 83.0 fL 86.0-100.0 L 47899-3) mean corpuscular hemoglobin (test 25.6 pg 26.2-33.4 [...] 44.4-80.1 leukocytes in Blood (test code = 97018-7) Immature granulocytes [#/volume] 0.01 K/uL 0.00-0.03 in Blood (test code = 39903-1) lymphocyte% (test code = 38.8 % 10.0-50.0 lymphocyte%) mono % (test code = mono %) 6.9 % 3.6-12.0 eos % (test code = eos %) 1.5 % 0.0-5.4 basophil % (test code = basophil 1.1 % 0.1-1.2 %) Band form neutrophils [#/volume] 3.43 K/uL 1.56-6.13 in Blood (test code = 85862-9) Lymphocytes [#/volume] in Specimen 2.58 K/uL 1.18-3.74 by Automated count (test code = 81486-3) mono # (test code = mono #) 0.46 K/uL 0.24-0.86 eos # (test code = eos #) 0.10 K/uL 0.04-0.36 basophil # (test code = basophil 0.07 K/uL 0.01-0.08 #) NRBC% (test code = NRBC%) 0 /100 WBC 0-0.2 NRBC# (test code = NRBC#) 0 K/uL [facility] 2000 [facility] - Serum or Plasma [...] Serum or Plasma (test code = 6768-6) [facility] panel - Serum or [id number] 07:44:00 Test Item Value Reference Range Interpretation Comments cholesterol level (test code = 145 mg/dL 150-200 L cholesterol level) triglycerides level (test code = 57 mg/dL <150 triglycerides level) HDL cholesterol (test code = HDL 66 mg/dL >65 cholesterol) LDL cholesterol direct (test code = 69 mg/dL <100 LDL cholesterol direct) cholesterol risk ratio (test code = 2.196 cholesterol risk ratio) [facility] Ref[facility] Culture panel - Urine 2021-10-05 07:44:00 Test Item Value Reference Range Interpretation Comments Color of Urine by Auto (test code lt. yellow = 91986-1) Appearance of Urine (test code = SL cloudy clear 5767-9) Glucose [Mass/volume] in Urine negative negative (test code = 2350-7) bilirubin, urine (test code = negative negative bilirubin, urine) ketone, urine (test code = negative negative ketone, urine) Specific gravity of Urine by 1.015 1.003-1.030 Automated test strip (test code = 75678-6) Hemoglobin [Presence] in Urine by small negative H Test strip (test code = 5794-3) pH of Urine (test code = 2756-5) 6.500 5-9 protein urine (UA) (test code = negative negative protein urine (UA)) Urobilinogen [Presence] in Urine 0.2 E.U./dL 0.2-1.0 (test code = 54903-8) Nitrite [Presence] in Urine by positive negative Test strip (test code = 5802-4) urine leukocyte esterase (test =1 negative H code = urine leukocyte esterase) Erythrocytes [Presence] in Urine =4-6 0-5 H (test code = 14824-0) WBC, urine (test code = WBC, =5-9 0-5 H urine) bacteria, urine (test code = full field none detect H bacteria, urine) Casts [#/area] in Urine sediment =2-5 none detect by Automated count (test code = 61680-1) urine culture added? (test code = yes urine culture added?) squamous epithelial cell urine =6-10 0-5 (test code = squamous epithelial cell urine) mucus, urine (test code = mucus, =1 none detect urine) [facility] W Auto Differential panel - [id number] 07:44:00 Test Item Value Reference Range Interpretation Comments white blood count (test code = 6.7 K/uL 4.0-11.5 white blood count) red blood count (test code = red 4.89 M/uL 3.80-5.20 blood count) hemoglobin (test code = 12.5 g/dL 10.5-15.7 hemoglobin) hematocrit (test code = 40.6 % 34.0-50.0 hematocrit) MCV [Entitic volume] (test code = 83.0 fL 86.0-100.0 L 24820-8) mean corpuscular hemoglobin (test 25.6 pg 26.2-33.4 [...] 44.4-80.1 leukocytes in Blood (test code = 68924-4) Immature granulocytes [#/volume] 0.01 K/uL 0.00-0.03 in Blood (test code = 40197-2) lymphocyte% (test code = 38.8 % 10.0-50.0 lymphocyte%) mono % (test code = mono %) 6.9 % 3.6-12.0 eos % (test code = eos %) 1.5 % 0.0-5.4 basophil % (test code = basophil 1.1 % 0.1-1.2 %) Band form neutrophils [#/volume] 3.43 K/uL 1.56-6.13 in Blood (test code = 79406-1) Lymphocytes [#/volume] in Specimen 2.58 K/uL 1.18-3.74 by Automated count (test code = 73069-6) mono # (test code = mono #) 0.46 K/uL 0.24-0.86 eos # (test code = eos #) 0.10 K/uL 0.04-0.36 basophil # (test code = basophil 0.07 K/uL 0.01-0.08 #) NRBC% (test code = NRBC%) 0 /100 WBC 0-0.2 NRBC# (test code = NRBC#) 0 K/uL [facility]Com[facility] 2000 panel - Serum or Plasma [...] Serum or Plasma (test code = 6768-6) [facility] 1996 panel - Serum or [id number] 07:44:00 Test Item Value Reference Range Interpretation Comments cholesterol level (test code = 145 mg/dL 150-200 L cholesterol level) triglycerides level (test code = 57 mg/dL <150 triglycerides level) HDL cholesterol (test code = HDL 66 mg/dL >65 cholesterol) LDL cholesterol direct (test code = 69 mg/dL <100 LDL cholesterol direct) cholesterol risk ratio (test code = 2.196 cholesterol risk ratio) [facility] HospitalBacteria identified in Urine by [id number] 07:44:00Bacteria Ur [facility] testing, [id number] 07:44:00 Test Item Value Reference Range Interpretation [...] Minimum inhibitory concentration (GUSTAVO) (test code = 69318-2) cefTAZidime [Susceptibility] by <=2 Minimum inhibitory concentration (GUSTAVO) (test code = 133-9) cefTRIAXone [Susceptibility] by <=1 Minimum inhibitory concentration (GUSTAVO) (test code = 141-2) Ciprofloxacin [Susceptibility] by <=0.25 Minimum inhibitory concentration (GUSTAVO) (test code = 185-9) Ampicillin+Sulbactam =8/4 [Susceptibility] by Minimum inhibitory concentration (GUSTAVO) (test code = 32-3) Ertapenem [Susceptibility] by <=0.25 Minimum inhibitory concentration (GUSTAVO) (test code = 80153-8) Aztreonam [Susceptibility] by <=2 Minimum inhibitory concentration (GUSTAVO) (test code = 44-8) Cefepime [Susceptibility] by Minimum <=1 inhibitory concentration (GUSTAVO) (test code = 6644-9) Meropenem [Susceptibility] by <=0.5 Minimum inhibitory concentration (GUSTAVO) (test code = 6652-2) Moxifloxacin [Susceptibility] by <=1 Minimum inhibitory concentration (GUSTAVO) (test code = 02384-1) Amikacin [Susceptibility] by Minimum <=8 inhibitory concentration (GUSTAVO) (test code = 12-5) Piperacillin+Tazobactam =4/4 [Susceptibility] by Minimum inhibitory concentration (GUSTAVO) (test code = 412-7) Ceftaroline [Susceptibility] by <=0.25 Minimum inhibitory concentration (GUSTAVO) (test code = 90667-7) Tigecycline [Susceptibility] by 2 ug/mL Minimum inhibitory concentration (GUSTAVO) (test code = 60077-5) [facility] HospitalErythrocyte sedimentation [id number] 00:00:00 Test Item Value Reference Range Interpretation Comments erythrocyte sedimentation rate (test 8 mm/HR 0.00-20 code = erythrocyte sedimentation rate) [facility] HospitalHemoglobin A1c [Mass/volume] in [id number] 00:00:00 Test Item Value Reference Range Interpretation Comments Hemoglobin A1c [Mass/volume] in Blood 5.4 % 4.0-6.0 (test code = 70891-5) [facility] HospitalThyrotropin [Units/volume] in Serum or [id number] 00:00:00 Test Item Value Reference Range Interpretation Comments Thyrotropin [Units/volume] in 0.94 uIU/mL 0.36-3.74 Serum or Plasma (test code = 3016-3) [facility] HospitalThyroxine (T4) [Mass/volume] in Serum or [id number] 00:00:00 Test Item Value Reference Range Interpretation Comments T4 (test code = T4) 7.1 ug/dL 4.5-11.7 [facility] HospitalErythrocyte sedimentation [id number] 00:00:00 Test Item Value Reference Range Interpretation Comments erythrocyte sedimentation rate (test 8 mm/HR 0.0020 code = erythrocyte sedimentation rate) [facility] HospitalHemoglobin A1c/Hemoglobin.total in [id number] 00:00:00 Test Item Value Reference Range Interpretation Comments Hemoglobin A1c [Mass/volume] in Blood 5.4 % 4.0-6.0 (test code = 83374-0) [facility] HospitalThyrotropin [Units/volume] in Serum or [id number] 00:00:00 Test Item Value Reference Range Interpretation Comments Thyrotropin [Units/volume] in 0.94 uIU/mL 0.36-3.74 Serum or Plasma (test code = 3016-3) [facility] HospitalThyroxine (T4) [Mass/volume] in Serum or [id number] 00:00:00 Test Item Value Reference Range Interpretation Comments T4 (test code = T4) 7.1 ug/dL 4.5-11.7 [facility] strep group A, [id number] 17:41:17 Test Item Value Reference Range Interpretation Comments Strep Result (test code = Strep negative Result) [facility] strep group A, [id number] 17:41:17 Test Item Value Reference Range Interpretation Comments Strep Result (test code = Strep negative Result) [facility] HospitalInfluenza virus A and B and SARS-CoV+SARS-CoV-2 (COVID- 19) Ag panel - Upper respiratory specimen by Rapid [id number] 16:52:00 Test Item Value Reference Range Interpretation Comments RAPID SARS COV (test code = RAPID negative SARS COV) RAPID FLU A (test code = RAPID FLU negative A) RAPID FLU B (test code = RAPID FLU negative B) [facility]In[facility] A and B and SARS-CoV+SARS-CoV-2 (COVID- 19) Ag panel - Upper respiratory specimen by Rapid [id number] 16:52:00 Test Item Value Reference Range Interpretation Comments RAPID SARS COV (test code = RAPID negative SARS COV) RAPID FLU A (test code = RAPID FLU negative A) RAPID FLU B (test code = RAPID FLU negative B) [facility] W Auto Differential panel - [id number] 10:41:00 Test Item Value Reference Range Interpretation Comments white blood count (test code = 8.4 K/uL 4.0-11.5 white blood count) red blood count (test code = red 5.53 M/uL 3.80-5.20 H blood count) hemoglobin (test code = 14.3 g/dL 10.5-15.7 hemoglobin) hematocrit (test code = 45.4 % 34.0-50.0 hematocrit) MCV [Entitic volume] (test code = 82.1 fL 86.0-100.0 L 52084-5) mean corpuscular hemoglobin (test 25.9 pg 26.2-33.4 [...] 44.4-80.1 leukocytes in Blood (test code = 51927-2) Immature granulocytes [#/volume] 0.02 K/uL 0.00-0.03 in Blood (test code = 90587-3) lymphocyte% (test code = 38.7 % 10.0-50.0 lymphocyte%) mono % (test code = mono %) 5.3 % 3.6-12.0 eos % (test code = eos %) 1.4 % 0.0-5.4 Basophils/100 leukocytes in 0.6 % 0.1-1.2 Specimen (test code = 23125-4) Band form neutrophils [#/volume] 4.53 K/uL 1.56-6.13 in Blood (test code = 37851-3) Lymphocytes [#/volume] in Specimen 3.27 K/uL 1.18-3.74 by Automated count (test code = 47571-8) mono # (test code = mono #) 0.45 K/uL 0.24-0.86 eos # (test code = eos #) 0.12 K/uL 0.04-0.36 basophil # (test code = basophil 0.05 K/uL 0.01-0.08 #) NRBC% (test code = NRBC%) 0 /100 WBC 0-0.2 NRBC# (test code = NRBC#) 0 K/uL [facility]Com[facility] 2000 panel - Serum or Plasma [...] Serum or Plasma (test code = 6768-6) [facility] HospitalPT/[id number] 10:41:00 Test Item Value Reference Range Interpretation Comments prothrombin time (test code = 10.0 seconds 10.3-12.3 L prothrombin time) INR in Blood by Coagulation <0.94 assay (test code = 56957-0) [facility] HospitalDifferential panel, method unspecified - [id number] 00:00:00NeutrophilsBandLymphocyteAtypical LymphMonocyteEosinophilBasophilMyelocyteBlastsAbs Neutrophil Count(Man)Abs Lymph Count (Man)Abs Monocyte Count (Man)Abs Eosinophil Count (Man)Abs Basophil Count (Man)Platelet EstimatePlatelet MorphologyAnisocytosisMacrocytosisStomatocyteToxic GranulationMataGulf Coast Veterans Health Care SystemChoriogonadotropin ( test) [Presence] in Serum or [id number] 00:00:00 Test Item Value Reference Range Interpretation Comments Choriogonadotropin.beta subunit negative neg ( test) [Presence] in Serum or Plasma (test code = 2110-5) [facility]partial thromboplastin [id number] 00:00:00 Test Item Value Reference Range Interpretation Comments INR in Blood by Coagulation 27.6 seconds 22.5-37.0 assay (test code = 34539-9) [facility] HospitalInfluenza virus A and B and SARS-CoV+SARS-CoV-2 (COVID- 19) Ag panel - Upper respiratory specimen by Rapid [id number] 14:30:06 Test Item Value Reference Range Interpretation Comments RAPID SARS COV (test code = RAPID negative SARS COV) RAPID FLU A (test code = RAPID FLU negative A) RAPID FLU B (test code = RAPID FLU negative B) [facility] HospitalInfluenza virus A and B and SARS-CoV+SARS-CoV-2 (COVID- 19) Ag panel - Upper respiratory specimen by Rapid [id number] 14:30:06 Test Item Value Reference Range Interpretation Comments RAPID SARS COV (test code = RAPID negative SARS COV) RAPID FLU A (test code = RAPID FLU negative A) RAPID FLU B (test code = RAPID FLU negative B) [facility] HospitalInfluenza virus A and B and SARS-CoV+SARS-CoV-2 (COVID- 19) Ag panel - Upper respiratory specimen by Rapid [id number] 14:30:06 Test Item Value Reference Range Interpretation Comments RAPID SARS COV (test code = RAPID negative SARS COV) RAPID FLU A (test code = RAPID FLU negative A) RAPID FLU B (test code = RAPID FLU negative B) [facility] strep group A, [id number] 14:29:58 Test Item Value Reference Range Interpretation Comments Strep Result (test code = Strep positive Result) [facility] strep group A, [id number] 14:29:58 Test Item Value Reference Range Interpretation Comments Strep Result (test code = Strep positive Result) [facility] strep group A, [id number] 14:29:58 Test Item Value Reference Range Interpretation Comments Strep Result (test code = Strep positive Result) [facility], [id number] 15:38:01 Test Item Value Reference Range Interpretation Comments Strep Result (test code = Strep negative Result) [facility] strep group A, [id number] 15:38:01 Test Item Value Reference Range Interpretation Comments Strep Result (test code = Strep negative Result) [facility] strep group A, [id number] 15:38:01 Test Item Value Reference Range Interpretation Comments Strep Result (test code = Strep negative Result) [facility] strep group A, [id number] 15:38:01 Test Item Value Reference Range Interpretation Comments Strep Result (test code = Strep negative Result) [facility] strep group A, [id number] 15:56:00 Test Item Value Reference Range Interpretation Comments Strep Result (test code = Strep positive Result) [facility] strep group A, [id number] 15:56:00 Test Item Value Reference Range Interpretation Comments Strep Result (test code = Strep positive Result) [facility] HospitalUrinalysis macro (dipstick) panel - [id number] 15:37:27 Test Item Value Reference Range Interpretation Comments Leukocytes (test code = Leukocytes) Trace Nitrite (test code = Nitrite) negative Urobilinogen (test code = 1 Urobilinogen) Protein (test code = Protein) Negative pH (test code = pH) 7.0 Blood (test code = Blood) Negative Specific Cable (test code = 1.020 Specific Cable) Ketone (test code = Ketone) Negative Bilirubin (test code = Bilirubin) Negative Glucose (test code = Glucose) Negative Appearance (test code = Appearance) Clear Color (test code = Color) Yellow [facility] W Auto Differential panel - [id number] 12:16:00 Test Item Value Reference Range Interpretation Comments white blood count (test code = 7.3 K/uL 4.0-11.5 white blood count) red blood count (test code = red 5.06 M/uL 3.80-5.20 blood count) hemoglobin (test code = 12.5 g/dL 10.5-15.7 hemoglobin) hematocrit (test code = 41.3 % 34.0-50.0 hematocrit) Erythrocyte mean corpuscular 81.6 fL 86-100 L volume [Entitic volume] (test code = 65959-2) mean corpuscular hemoglobin (test 24.7 pg 26.2-33.4 [...] 44.4-80.1 leukocytes in Blood (test code = 58047-6) Granulocytes Immature [#/volume] 0.0 K/uL 0.0-0.03 in Blood (test code = 91013-4) lymphocyte% (test code = 37.9 % 10.0-50.0 lymphocyte%) mono % (test code = mono %) 7.4 % 3.6-12.0 eos % (test code = eos %) 3.0 % 0.0-5.4 Basophils/100 leukocytes in 0.5 % 0.1-1.2 Unspecified specimen (test code = 60758-0) Neutrophils.band form [#/volume] 3.73 K/uL 1.56-6.13 in Blood (test code = 14725-4) Lymphocytes [#/volume] in 2.8 K/uL 1.18-3.74 Unspecified specimen by Automated count (test code = 15771-0) mono # (test code = mono #) 0.54 K/uL 0.24-0.86 eos # (test code = eos #) 0.22 K/uL 0.04-0.36 basophil # (test code = basophil 0.04 K/uL 0.01-0.08 #) NRBC% (test code = NRBC%) 0 /100 WBC 0-0.2 NRBC# (test code = NRBC#) 0 K/uL [facility]different[facility] panel, [id number] 12:16:00 NeutrophilsLymphocyteAtypical LymphMonocyteEosinophilBasophilPlatelet EstimateDifferential comment-PMaMonroe Regional HospitalChoriogonadotropin.beta subunit [Units/volume] in Serum or [id number] 12:16:00 Test Item Value Reference Range Interpretation Comments HCG quantitative (test code = HCG <0.1 0-5 quantitative) [facility] HospitalUrinalysis macro (dipstick) panel - [id number] 11:31:00 Test Item Value Reference Range Interpretation Comments Leukocytes (test code = Leukocytes) Large Nitrite (test code = Nitrite) negative Urobilinogen (test code = .2 Urobilinogen) Protein (test code = Protein) 30 pH (test code = pH) 8.0 Blood (test code = Blood) Small Specific Cable (test code = 1.020 Specific Cable) Ketone (test code = Ketone) Negative Bilirubin (test code = Bilirubin) Negative Glucose (test code = Glucose) Negative Appearance (test code = Appearance) Clear Color (test code = Color) Yellow [facility] HospitalUrinalysis macro (dipstick) panel - [id number] 11:31:00 Test Item Value Reference Range Interpretation Comments Leukocytes (test code = Leukocytes) Large Nitrite (test code = Nitrite) negative Urobilinogen (test code = .2 Urobilinogen) Protein (test code = Protein) 30 pH (test code = pH) 8.0 Blood (test code = Blood) Small Specific Cable (test code = 1.020 Specific Cable) Ketone (test code = Ketone) Negative Bilirubin (test code = Bilirubin) Negative Glucose (test code = Glucose) Negative Appearance (test code = Appearance) Clear Color (test code = Color) Yellow [facility] panel - [id number] 11:31:00 Test Item Value Reference Range Interpretation Comments Leukocytes (test code = Leukocytes) Large Nitrite (test code = Nitrite) negative Urobilinogen (test code = .2 Urobilinogen) Protein (test code = Protein) 30 pH (test code = pH) 8.0 Blood (test code = Blood) Small Specific Cable (test code = 1.020 Specific Cable) Ketone (test code = Ketone) Negative Bilirubin (test code = Bilirubin) Negative Glucose (test code = Glucose) Negative Appearance (test code = Appearance) Clear Color (test code = Color) Yellow [facility] W Auto Differential panel - [id number] 05:43:00 Test Item Value Reference Range Interpretation [...] L volume [Entitic volume] (test code = 42563-2) mean corpuscular hemoglobin (test 25.3 pg 26.2-33.4 [...] 44.4-80.1 leukocytes in Blood (test code = 94749-7) Granulocytes Immature [#/volume] 0.1 K/uL 0.0-0.03 H in Blood (test code = 40142-7) lymphocyte% (test code = 26.4 % 10.0-50.0 lymphocyte%) mono % (test code = mono %) 6.4 % 3.6-12.0 eos % (test code = eos %) 0.7 % 0.0-5.4 Basophils/100 leukocytes in 0.2 % 0.1-1.2 Unspecified specimen (test code = 77875-6) Neutrophils.band form [#/volume] 8.32 K/uL 1.56-6.13 H in Blood (test code = 18292-5) Lymphocytes [#/volume] in 3.3 K/uL 1.18-3.74 Unspecified specimen by Automated count (test code = 00801-5) mono # (test code = mono #) 0.81 K/uL 0.24-0.86 eos # (test code = eos #) 0.09 K/uL 0.04-0.36 basophil # (test code = basophil 0.03 K/uL 0.01-0.08 #) NRBC% (test code = NRBC%) 0 /100 WBC 0-0.2 NRBC# (test code = NRBC#) 0 K/uL [facility] W Auto Differential panel - [id number] 05:43:00 Test Item Value Reference Range Interpretation [...] L volume [Entitic volume] (test code = 97386-4) mean corpuscular hemoglobin (test 25.3 pg 26.2-33.4 [...] 44.4-80.1 leukocytes in Blood (test code = 17941-1) Granulocytes Immature [#/volume] 0.1 K/uL 0.0-0.03 H in Blood (test code = 16854-3) lymphocyte% (test code = 26.4 % 10.0-50.0 lymphocyte%) mono % (test code = mono %) 6.4 % 3.6-12.0 eos % (test code = eos %) 0.7 % 0.0-5.4 Basophils/100 leukocytes in 0.2 % 0.1-1.2 Unspecified specimen (test code = 23491-8) Neutrophils.band form [#/volume] 8.32 K/uL 1.56-6.13 H in Blood (test code = 19992-4) Lymphocytes [#/volume] in 3.3 K/uL 1.18-3.74 Unspecified specimen by Automated count (test code = 16165-4) mono # (test code = mono #) 0.81 K/uL 0.24-0.86 eos # (test code = eos #) 0.09 K/uL 0.04-0.36 basophil # (test code = basophil 0.03 K/uL 0.01-0.08 #) NRBC% (test code = NRBC%) 0 /100 WBC 0-0.2 NRBC# (test code = NRBC#) 0 K/uL [facility] W Auto Differential panel - [id number] 04:53:00 Test Item Value Reference Range Interpretation Comments white blood count (test code = 9.5 K/uL 4.0-11.5 white blood count) red blood count (test code = red 3.83 M/uL 3.80-5.20 blood count) hemoglobin (test code = 9.7 g/dL 10.5-15.7 L hemoglobin) hematocrit (test code = 31.4 % 34.0-50.0 L hematocrit) Erythrocyte mean corpuscular 82.0 fL 86-100 L volume [Entitic volume] (test code = 32288-0) mean corpuscular hemoglobin (test 25.3 pg 26.2-33.4 [...] 44.4-80.1 leukocytes in Blood (test code = 75072-9) Granulocytes Immature [#/volume] 0.1 K/uL 0.0-0.03 H in Blood (test code = 22169-2) lymphocyte% (test code = 30.9 % 10.0-50.0 lymphocyte%) mono % (test code = mono %) 7.2 % 3.6-12.0 eos % (test code = eos %) 0.3 % 0.0-5.4 Basophils/100 leukocytes in 0.2 % 0.1-1.2 Unspecified specimen (test code = 47488-4) Neutrophils.band form [#/volume] 5.77 K/uL 1.56-6.13 in Blood (test code = 92694-7) Lymphocytes [#/volume] in 2.9 K/uL 1.18-3.74 Unspecified specimen by Automated count (test code = 91872-7) mono # (test code = mono #) 0.68 K/uL 0.24-0.86 eos # (test code = eos #) 0.03 K/uL 0.04-0.36 L basophil # (test code = basophil 0.02 K/uL 0.01-0.08 #) NRBC% (test code = NRBC%) 0 /100 WBC 0-0.2 NRBC# (test code = NRBC#) 0 K/uL [facility] Serum by [id number] 04:53:00 Test Item Value Reference Range Interpretation Comments Reagin Ab [Presence] in Serum by nonreactive nonreactive RPR (test code = 10654-7) [facility] surface Ag [Presence] in Serum 2019-04-30 04:53:00 Test Item Value Reference Range Interpretation Comments .hepatitis B surface antigen (test negative negative code = .hepatitis B surface antigen) [facility] panel - [id number] 04:53:00 Test Item Value Reference Range Interpretation Comments white blood count (test code = 9.5 K/uL 4.0-11.5 white blood count) red blood count (test code = red 3.83 M/uL 3.80-5.20 blood count) hemoglobin (test code = 9.7 g/dL 10.5-15.7 L hemoglobin) hematocrit (test code = 31.4 % 34.0-50.0 L hematocrit) Erythrocyte mean corpuscular 82.0 fL 86-100 L volume [Entitic volume] (test code = 36278-0) mean corpuscular hemoglobin (test 25.3 pg 26.2-33.4 [...] 44.4-80.1 leukocytes in Blood (test code = 39792-7) Granulocytes Immature [#/volume] 0.1 K/uL 0.0-0.03 H in Blood (test code = 58104-5) lymphocyte% (test code = 30.9 % 10.0-50.0 lymphocyte%) mono % (test code = mono %) 7.2 % 3.6-12.0 eos % (test code = eos %) 0.3 % 0.0-5.4 Basophils/100 leukocytes in 0.2 % 0.1-1.2 Unspecified specimen (test code = 36140-3) Neutrophils.band form [#/volume] 5.77 K/uL 1.56-6.13 in Blood (test code = 67352-5) Lymphocytes [#/volume] in 2.9 K/uL 1.18-3.74 Unspecified specimen by Automated count (test code = 24704-3) mono # (test code = mono #) 0.68 K/uL 0.24-0.86 eos # (test code = eos #) 0.03 K/uL 0.04-0.36 L basophil # (test code = basophil 0.02 K/uL 0.01-0.08 #) NRBC% (test code = NRBC%) 0 /100 WBC 0-0.2 NRBC# (test code = NRBC#) 0 K/uL [facility] [Presence] in Serum by [id number] 04:53:00 Test Item Value Reference Range Interpretation Comments Reagin Ab [Presence] in Serum by nonreactive nonreactive RPR (test code = 28060-6) [facility] virus surface Ag [Presence] in Serum 2019-04-30 04:53:00 Test Item Value Reference Range Interpretation Comments .hepatitis B surface antigen (test negative negative code = .hepatitis B surface antigen) [facility]dipstick) panel - [id number] 10:17:40 Test Item Value Reference Range Interpretation Comments Leukocytes (test code = Leukocytes) Trace Nitrite (test code = Nitrite) negative Urobilinogen (test code = .2 Urobilinogen) Protein (test code = Protein) Trace pH (test code = pH) 6.5 Blood (test code = Blood) Negative Specific Cable (test code = 1.015 Specific Cable) Ketone (test code = Ketone) Negative Bilirubin (test code = Bilirubin) Negative Glucose (test code = Glucose) Negative Appearance (test code = Appearance) Clear Color (test code = Color) Yellow [facility] (dipstick) panel - [id number] 10:17:40 Test Item Value Reference Range Interpretation Comments Leukocytes (test code = Leukocytes) Trace Nitrite (test code = Nitrite) negative Urobilinogen (test code = .2 Urobilinogen) Protein (test code = Protein) Trace pH (test code = pH) 6.5 Blood (test code = Blood) Negative Specific Cable (test code = 1.015 Specific Cable) Ketone (test code = Ketone) Negative Bilirubin (test code = Bilirubin) Negative Glucose (test code = Glucose) Negative Appearance (test code = Appearance) Clear Color (test code = Color) Yellow [facility] (dipstick) panel - [id number] 10:17:40 Test Item Value Reference Range Interpretation Comments Leukocytes (test code = Leukocytes) Trace Nitrite (test code = Nitrite) negative Urobilinogen (test code = .2 Urobilinogen) Protein (test code = Protein) Trace pH (test code = pH) 6.5 Blood (test code = Blood) Negative Specific Cable (test code = 1.015 Specific Cable) Ketone (test code = Ketone) Negative Bilirubin (test code = Bilirubin) Negative Glucose (test code = Glucose) Negative Appearance (test code = Appearance) Clear Color (test code = Color) Yellow [facility] Biophysical profile panel [id number] 10:06:43 Test Item Value Reference Range Interpretation Comments Amniotic Fluid Index (test code = 2 (14.5) Amniotic Fluid Index) Tone (test code = Tone) 2 Breathing (test code = 2 Breathing) Movement (test code = 2 Movement) Non-Stress Test (test code = 2 Non-Stress Test) [facility] Biophysical profile panel [id number] 10:06:43 Test Item Value Reference Range Interpretation Comments Amniotic Fluid Index (test code = 2 (14.5) Amniotic Fluid Index) Tone (test code = Tone) 2 Breathing (test code = 2 Breathing) Movement (test code = 2 Movement) Non-Stress Test (test code = 2 Non-Stress Test) [facility] Biophysical profile panel [id number] 10:06:43 Test Item Value Reference Range Interpretation Comments Amniotic Fluid Index (test code = 2 (14.5) Amniotic Fluid Index) Tone (test code = Tone) 2 Breathing (test code = 2 Breathing) Movement (test code = 2 Movement) Non-Stress Test (test code = 2 Non-Stress Test) [facility]dipstick) panel - [id number] 11:37:00 Test Item Value Reference Range Interpretation Comments Leukocytes (test code = Leukocytes) Large Nitrite (test code = Nitrite) negative Urobilinogen (test code = 1 Urobilinogen) Protein (test code = Protein) Trace pH (test code = pH) 8.5 Blood (test code = Blood) Negative Specific Cable (test code = 1.020 Specific Cable) Ketone (test code = Ketone) Negative Bilirubin (test code = Bilirubin) Negative Glucose (test code = Glucose) Negative Appearance (test code = Appearance) Clear Color (test code = Color) Yellow [facility] - [id number] 11:37:00 Test Item Value Reference Range Interpretation Comments Leukocytes (test code = Leukocytes) Large Nitrite (test code = Nitrite) negative Urobilinogen (test code = 1 Urobilinogen) Protein (test code = Protein) Trace pH (test code = pH) 8.5 Blood (test code = Blood) Negative Specific Cable (test code = 1.020 Specific Cable) Ketone (test code = Ketone) Negative Bilirubin (test code = Bilirubin) Negative Glucose (test code = Glucose) Negative Appearance (test code = Appearance) Clear Color (test code = Color) Yellow [facility] (dipstick) panel - [id number] 11:37:00 Test Item Value Reference Range Interpretation Comments Leukocytes (test code = Leukocytes) Large Nitrite (test code = Nitrite) negative Urobilinogen (test code = 1 Urobilinogen) Protein (test code = Protein) Trace pH (test code = pH) 8.5 Blood (test code = Blood) Negative Specific Cable (test code = 1.020 Specific Cable) Ketone (test code = Ketone) Negative Bilirubin (test code = Bilirubin) Negative Glucose (test code = Glucose) Negative Appearance (test code = Appearance) Clear Color (test code = Color) Yellow [facility] - [id number] 11:37:00 Test Item Value Reference Range Interpretation Comments Leukocytes (test code = Leukocytes) Large Nitrite (test code = Nitrite) negative Urobilinogen (test code = 1 Urobilinogen) Protein (test code = Protein) Trace pH (test code = pH) 8.5 Blood (test code = Blood) Negative Specific Cable (test code = 1.020 Specific Cable) Ketone (test code = Ketone) Negative Bilirubin (test code = Bilirubin) Negative Glucose (test code = Glucose) Negative Appearance (test code = Appearance) Clear Color (test code = Color) Yellow [facility] (dipstick) panel - [id number] 11:37:00 Test Item Value Reference Range Interpretation Comments Leukocytes (test code = Leukocytes) Large Nitrite (test code = Nitrite) negative Urobilinogen (test code = 1 Urobilinogen) Protein (test code = Protein) Trace pH (test code = pH) 8.5 Blood (test code = Blood) Negative Specific Cable (test code = 1.020 Specific Cable) Ketone (test code = Ketone) Negative Bilirubin (test code = Bilirubin) Negative Glucose (test code = Glucose) Negative Appearance (test code = Appearance) Clear Color (test code = Color) Yellow [facility] Biophysical profile panel [id number] 11:06:57 Test Item Value Reference Range Interpretation Comments Amniotic Fluid Index (test code = 2 (14.6) Amniotic Fluid Index) Tone (test code = Tone) 2 Breathing (test code = 2 Breathing) Movement (test code = 2 Movement) Non-Stress Test (test code = 2 Non-Stress Test) [facility] Biophysical profile panel [id number] 11:06:57 Test Item Value Reference Range Interpretation Comments Amniotic Fluid Index (test code = 2 (14.6) Amniotic Fluid Index) Tone (test code = Tone) 2 Breathing (test code = 2 Breathing) Movement (test code = 2 Movement) Non-Stress Test (test code = 2 Non-Stress Test) [facility] Biophysical profile panel [id number] 11:06:57 Test Item Value Reference Range Interpretation Comments Amniotic Fluid Index (test code = 2 (14.6) Amniotic Fluid Index) Tone (test code = Tone) 2 Breathing (test code = 2 Breathing) Movement (test code = 2 Movement) Non-Stress Test (test code = 2 Non-Stress Test) [facility] Biophysical profile panel [id number] 11:06:57 Test Item Value Reference Range Interpretation Comments Amniotic Fluid Index (test code = 2 (14.6) Amniotic Fluid Index) Tone (test code = Tone) 2 Breathing (test code = 2 Breathing) Movement (test code = 2 Movement) Non-Stress Test (test code = 2 Non-Stress Test) [facility] Biophysical profile panel [id number] 11:06:57 Test Item Value Reference Range Interpretation Comments Amniotic Fluid Index (test code = 2 (14.6) Amniotic Fluid Index) Tone (test code = Tone) 2 Breathing (test code = 2 Breathing) Movement (test code = 2 Movement) Non-Stress Test (test code = 2 Non-Stress Test) [facility] (dipstick) panel - [id number] 15:44:30 Test Item Value Reference Range Interpretation Comments Leukocytes (test code = Small Leukocytes) Nitrite (test code = Nitrite) negative Urobilinogen (test code = 2 Urobilinogen) Protein (test code = Protein) 30 pH (test code = pH) 8.0 Blood (test code = Blood) Negative Specific Cable (test code = 1.020 Specific Cable) Ketone (test code = Ketone) Negative Bilirubin (test code = Bilirubin) Small Glucose (test code = Glucose) Negative Appearance (test code = Clear Appearance) Color (test code = Color) Dark Yellow [facility] (dipstick) panel - [id number] 15:44:30 Test Item Value Reference Range Interpretation Comments Leukocytes (test code = Small Leukocytes) Nitrite (test code = Nitrite) negative Urobilinogen (test code = 2 Urobilinogen) Protein (test code = Protein) 30 pH (test code = pH) 8.0 Blood (test code = Blood) Negative Specific Cable (test code = 1.020 Specific Cable) Ketone (test code = Ketone) Negative Bilirubin (test code = Bilirubin) Small Glucose (test code = Glucose) Negative Appearance (test code = Clear Appearance) Color (test code = Color) Dark Yellow [facility] (dipstick) panel - [id number] 15:44:30 Test Item Value Reference Range Interpretation Comments Leukocytes (test code = Small Leukocytes) Nitrite (test code = Nitrite) negative Urobilinogen (test code = 2 Urobilinogen) Protein (test code = Protein) 30 pH (test code = pH) 8.0 Blood (test code = Blood) Negative Specific Cable (test code = 1.020 Specific Cable) Ketone (test code = Ketone) Negative Bilirubin (test code = Bilirubin) Small Glucose (test code = Glucose) Negative Appearance (test code = Clear Appearance) Color (test code = Color) Dark Yellow [facility] (dipstick) panel - [id number] 15:44:30 Test Item Value Reference Range Interpretation Comments Leukocytes (test code = Small Leukocytes) Nitrite (test code = Nitrite) negative Urobilinogen (test code = 2 Urobilinogen) Protein (test code = Protein) 30 pH (test code = pH) 8.0 Blood (test code = Blood) Negative Specific Cable (test code = 1.020 Specific Cable) Ketone (test code = Ketone) Negative Bilirubin (test code = Bilirubin) Small Glucose (test code = Glucose) Negative Appearance (test code = Clear Appearance) Color (test code = Color) Dark Yellow [facility] (dipstick) panel - [id number] 15:44:30 Test Item Value Reference Range Interpretation Comments Leukocytes (test code = Small Leukocytes) Nitrite (test code = Nitrite) negative Urobilinogen (test code = 2 Urobilinogen) Protein (test code = Protein) 30 pH (test code = pH) 8.0 Blood (test code = Blood) Negative Specific Cable (test code = 1.020 Specific Cable) Ketone (test code = Ketone) Negative Bilirubin (test code = Bilirubin) Small Glucose (test code = Glucose) Negative Appearance (test code = Clear Appearance) Color (test code = Color) Dark Yellow [facility] (dipstick) panel - [id number] 15:44:30 Test Item Value Reference Range Interpretation Comments Leukocytes (test code = Small Leukocytes) Nitrite (test code = Nitrite) negative Urobilinogen (test code = 2 Urobilinogen) Protein (test code = Protein) 30 pH (test code = pH) 8.0 Blood (test code = Blood) Negative Specific Cable (test code = 1.020 Specific Cable) Ketone (test code = Ketone) Negative Bilirubin (test code = Bilirubin) Small Glucose (test code = Glucose) Negative Appearance (test code = Clear Appearance) Color (test code = Color) Dark Yellow [facility] Bi[facility] panel [id number] 15:38:02 Test Item Value Reference Range Interpretation Comments Amniotic Fluid Index (test code = 2 (15.5) Amniotic Fluid Index) Tone (test code = Tone) 2 Breathing (test code = 2 Breathing) Movement (test code = 2 Movement) Non-Stress Test (test code = 2 Non-Stress Test) [facility] Biophysical profile panel [id number] 15:38:02 Test Item Value Reference Range Interpretation Comments Amniotic Fluid Index (test code = 2 (15.5) Amniotic Fluid Index) Tone (test code = Tone) 2 Breathing (test code = 2 Breathing) Movement (test code = 2 Movement) Non-Stress Test (test code = 2 Non-Stress Test) [facility] Biophysical profile panel [id number] 15:38:02 Test Item Value Reference Range Interpretation Comments Amniotic Fluid Index (test code = 2 (15.5) Amniotic Fluid Index) Tone (test code = Tone) 2 Breathing (test code = 2 Breathing) Movement (test code = 2 Movement) Non-Stress Test (test code = 2 Non-Stress Test) [facility] Biophysical profile panel [id number] 15:38:02 Test Item Value Reference Range Interpretation Comments Amniotic Fluid Index (test code = 2 (15.5) Amniotic Fluid Index) Tone (test code = Tone) 2 Breathing (test code = 2 Breathing) Movement (test code = 2 Movement) Non-Stress Test (test code = 2 Non-Stress Test) [facility] Biophysical profile panel [id number] 15:38:02 Test Item Value Reference Range Interpretation Comments Amniotic Fluid Index (test code = 2 (15.5) Amniotic Fluid Index) Tone (test code = Tone) 2 Breathing (test code = 2 Breathing) Movement (test code = 2 Movement) Non-Stress Test (test code = 2 Non-Stress Test) [facility] Biophysical profile panel [id number] 15:38:02 Test Item Value Reference Range Interpretation Comments Amniotic Fluid Index (test code = 2 (15.5) Amniotic Fluid Index) Tone (test code = Tone) 2 Breathing (test code = 2 Breathing) Movement (test code = 2 Movement) Non-Stress Test (test code = 2 Non-Stress Test) [facility] Biophysical profile panel [id number] 09:23:00 Test Item Value Reference Range Interpretation Comments Amniotic Fluid Index (test code = 2 (15.4) Amniotic Fluid Index) Tone (test code = Tone) 2 Breathing (test code = 2 Breathing) Movement (test code = 2 Movement) [facility] Biophysical profile panel [id number] 09:23:00 Test Item Value Reference Range Interpretation Comments Amniotic Fluid Index (test code = 2 (15.4) Amniotic Fluid Index) Tone (test code = Tone) 2 Breathing (test code = 2 Breathing) Movement (test code = 2 Movement) [facility] Biophysical profile panel [id number] 09:23:00 Test Item Value Reference Range Interpretation Comments Amniotic Fluid Index (test code = 2 (15.4) Amniotic Fluid Index) Tone (test code = Tone) 2 Breathing (test code = 2 Breathing) Movement (test code = 2 Movement) [facility] Biophysical profile [id number] 09:23:00 Test Item Value Reference Range Interpretation Comments Amniotic Fluid Index (test code = 2 (15.4) Amniotic Fluid Index) Tone (test code = Tone) 2 Breathing (test code = 2 Breathing) Movement (test code = 2 Movement) [facility] Biophysical profile panel [id number] 11:41:00 Test Item Value Reference Range Interpretation Comments Amniotic Fluid Index (test code = 2 (13.3) Amniotic Fluid Index) Tone (test code = Tone) 2 Breathing (test code = 2 Breathing) Movement (test code = 2 Movement) [facility] Biophysical profile [id number] 11:41:00 Test Item Value Reference Range Interpretation Comments Amniotic Fluid Index (test code = 2 (13.3) Amniotic Fluid Index) Tone (test code = Tone) 2 Breathing (test code = 2 Breathing) Movement (test code = 2 Movement) [facility] Biophysical profile panel [id number] 11:41:00 Test Item Value Reference Range Interpretation Comments Amniotic Fluid Index (test code = 2 (13.3) Amniotic Fluid Index) Tone (test code = Tone) 2 Breathing (test code = 2 Breathing) Movement (test code = 2 Movement) [facility] Biophysical profile panel [id number] 11:41:00 Test Item Value Reference Range Interpretation Comments Amniotic Fluid Index (test code = 2 (13.3) Amniotic Fluid Index) Tone (test code = Tone) 2 Breathing (test code = 2 Breathing) Movement (test code = 2 Movement) [facility] Biophysical profile panel [id number] 11:59:00 Test Item Value Reference Range Interpretation Comments Amniotic Fluid Index (test code = 2 (12.2) Amniotic Fluid Index) Tone (test code = Tone) 2 Breathing (test code = 2 Breathing) Movement (test code = 2 Movement) [facility] Biophysical profile panel [id number] 11:59:00 Test Item Value Reference Range Interpretation Comments Amniotic Fluid Index (test code = 2 (12.2) Amniotic Fluid Index) Tone (test code = Tone) 2 Breathing (test code = 2 Breathing) Movement (test code = 2 Movement) [facility] Biophysical profile panel [id number] 11:59:00 Test Item Value Reference Range Interpretation Comments Amniotic Fluid Index (test code = 2 (12.2) Amniotic Fluid Index) Tone (test code = Tone) 2 Breathing (test code = 2 Breathing) Movement (test code = 2 Movement) [facility] Biophysical profile panel [id number] 11:59:00 Test Item Value Reference Range Interpretation Comments Amniotic Fluid Index (test code = 2 (12.2) Amniotic Fluid Index) Tone (test code = Tone) 2 Breathing (test code = 2 Breathing) Movement (test code = 2 Movement) [facility] Biophysical profile panel [id number] 11:59:00 Test Item Value Reference Range Interpretation Comments Amniotic Fluid Index (test code = 2 (12.2) Amniotic Fluid Index) Tone (test code = Tone) 2 Breathing (test code = 2 Breathing) Movement (test code = 2 Movement) [facility] U[facility] by [id number] 10:18:00 Test Item Value Reference Range Interpretation Comments Bacteria identified in no growth after 2 Urine by Culture (test days code = 630-4) [facility] identified in Urine by [id number] 10:18:00 Test Item Value Reference Range Interpretation Comments Bacteria identified in no growth after 2 Urine by Culture (test days code = 630-4) [facility] GroupBacteria identified in Urine by [id number] 10:18:00 Test Item Value Reference Range Interpretation Comments Bacteria identified in no growth after 2 Urine by Culture (test days code = 630-4) [facility] GroupBacteria identified in Urine by [id number] 10:18:00 Test Item Value Reference Range Interpretation Comments Bacteria identified in no growth after 2 Urine by Culture (test days code = 630-4) [facility] GroupGlucose [Mass/volume] in Serum or Plasma --1 hour post dose [id number] 12:27:00 Test Item Value Reference Range Interpretation Comments Results (test code = Results) 152-Fail [facility] GroupGlucose [Mass/volume] in Serum or Plasma --1 hour post dose [id number] 12:27:00 Test Item Value Reference Range Interpretation Comments Results (test code = Results) 152-Fail [facility] GroupGlucose [Mass/volume] in Serum or Plasma --1 hour post dose [id number] 12:27:00 Test Item Value Reference Range Interpretation Comments Results (test code = Results) 152-Fail [facility] GroupGlucose [Mass/volume] in Serum or Plasma --1 hour post dose [id number] 12:27:00 Test Item Value Reference Range Interpretation Comments Results (test code = Results) 152-Fail [facility] GroupGlucose [Mass/volume] in Serum or Plasma --1 hour post dose [id number] 12:27:00 Test Item Value Reference Range Interpretation Comments Results (test code = Results) 152-Fail [facility] GroupCBC W Auto Differential panel - [id number] 11:08:00 Test Item Value Reference Range Interpretation Comments white blood count (test code = 14.1 K/uL 4.0-11.5 H white blood count) red blood count (test code = red 4.04 M/uL 3.80-5.20 blood count) hemoglobin (test code = 11.1 g/dL 10.5-15.7 hemoglobin) hematocrit (test code = 35.1 % 34.0-50.0 hematocrit) Erythrocyte mean corpuscular 86.9 fL 86-100 volume [Entitic volume] (test code = 64789-0) mean corpuscular hemoglobin (test 27.5 pg 26.2-33.4 [...] H leukocytes in Blood (test code = 10674-1) Granulocytes Immature [#/volume] 0.1 K/uL 0.0-0.03 H in Blood (test code = 27074-9) lymphocyte% (test code = 10.7 % 10.0-50.0 lymphocyte%) mono % (test code = mono %) 4.0 % 3.6-12.0 eos % (test code = eos %) 0.1 % 0.0-5.4 Basophils/100 leukocytes in 0.1 % 0.1-1.2 Unspecified specimen (test code = 37180-3) Neutrophils.band form [#/volume] 11.91 K/uL 1.56-6.13 H in Blood (test code = 89600-5) Lymphocytes [#/volume] in 1.5 K/uL 1.18-3.74 Unspecified specimen by Automated count (test code = 04359-6) mono # (test code = mono #) 0.56 K/uL 0.24-0.86 eos # (test code = eos #) 0.01 K/uL 0.04-0.36 L basophil # (test code = basophil 0.02 K/uL 0.01-0.08 #) NRBC% (test code = NRBC%) 0 /100 WBC 0-0.2 NRBC# (test code = NRBC#) 0 K/uL [facility], [id number] 11:08:00 NeutrophilsBandLymphocyteMonocytePlatelet EstimateMataGulf Coast Veterans Health Care SystemBlood group antibody screen [Presence] in Serum or [id number] 11:08:00 Test Item Value Reference Range Interpretation Comments Blood group antibody screen negative [Presence] in Serum or Plasma (test code = 890-4) [facility] Differential panel - [id number] 11:08:00 Test Item Value Reference Range Interpretation Comments white blood count (test code = 14.1 K/uL 4.0-11.5 H white blood count) red blood count (test code = red 4.04 M/uL 3.80-5.20 blood count) hemoglobin (test code = 11.1 g/dL 10.5-15.7 hemoglobin) hematocrit (test code = 35.1 % 34.0-50.0 hematocrit) Erythrocyte mean corpuscular 86.9 fL 86-100 volume [Entitic volume] (test code = 00281-9) mean corpuscular hemoglobin (test 27.5 pg 26.2-33.4 [...] H leukocytes in Blood (test code = 42385-7) Granulocytes Immature [#/volume] 0.1 K/uL 0.0-0.03 H in Blood (test code = 22148-9) lymphocyte% (test code = 10.7 % 10.0-50.0 lymphocyte%) mono % (test code = mono %) 4.0 % 3.6-12.0 eos % (test code = eos %) 0.1 % 0.0-5.4 Basophils/100 leukocytes in 0.1 % 0.1-1.2 Unspecified specimen (test code = 77124-2) Neutrophils.band form [#/volume] 11.91 K/uL 1.56-6.13 H in Blood (test code = 49086-2) Lymphocytes [#/volume] in 1.5 K/uL 1.18-3.74 Unspecified specimen by Automated count (test code = 15470-6) mono # (test code = mono #) 0.56 K/uL 0.24-0.86 eos # (test code = eos #) 0.01 K/uL 0.04-0.36 L basophil # (test code = basophil 0.02 K/uL 0.01-0.08 #) NRBC% (test code = NRBC%) 0 /100 WBC 0-0.2 NRBC# (test code = NRBC#) 0 K/uL [facility]different[facility], [id number] 11:08:00 NeutrophilsBandLymphocyteMonocytePlatelet EstimateSt. Dominic HospitalBlood group antibody screen [Presence] in Serum or [id number] 11:08:00 Test Item Value Reference Range Interpretation Comments Blood group antibody screen negative [Presence] in Serum or Plasma (test code = 890-4) [facility]HIV [facility]2 Ab [Presence] in [id number] 11:08:00HIV P24 AgHIV-1/2 AbSt. Dominic HospitalReagin Ab [Presence] in Serum by RPR 2019-03-09 11:08:00 Test Item Value Reference Range Interpretation Comments Reagin Ab [Presence] in Serum by nonreactive nonreactive RPR (test code = 61963-8) [facility] HospitalCB W Auto Differential panel - [id number] 11:08:00 Test Item Value Reference Range Interpretation Comments white blood count (test code = 14.1 K/uL 4.0-11.5 H white blood count) red blood count (test code = red 4.04 M/uL 3.80-5.20 blood count) hemoglobin (test code = 11.1 g/dL 10.5-15.7 hemoglobin) hematocrit (test code = 35.1 % 34.0-50.0 hematocrit) Erythrocyte mean corpuscular 86.9 fL 86-100 volume [Entitic volume] (test code = 53642-3) mean corpuscular hemoglobin (test 27.5 pg 26.2-33.4 [...] H leukocytes in Blood (test code = 65495-7) Granulocytes Immature [#/volume] 0.1 K/uL 0.0-0.03 H in Blood (test code = 85157-5) lymphocyte% (test code = 10.7 % 10.0-50.0 lymphocyte%) mono % (test code = mono %) 4.0 % 3.6-12.0 eos % (test code = eos %) 0.1 % 0.0-5.4 Basophils/100 leukocytes in 0.1 % 0.1-1.2 Unspecified specimen (test code = 77104-9) Neutrophils.band form [#/volume] 11.91 K/uL 1.56-6.13 H in Blood (test code = 42701-8) Lymphocytes [#/volume] in 1.5 K/uL 1.18-3.74 Unspecified specimen by Automated count (test code = 47420-6) mono # (test code = mono #) 0.56 K/uL 0.24-0.86 eos # (test code = eos #) 0.01 K/uL 0.04-0.36 L basophil # (test code = basophil 0.02 K/uL 0.01-0.08 #) NRBC% (test code = NRBC%) 0 /100 WBC 0-0.2 NRBC# (test code = NRBC#) 0 K/uL [facility]different[facility], [id number] 11:08:00 NeutrophilsBandLymphocyteMonocytePlatelet EstimateSt. Dominic HospitalBlood group antibody screen [Presence] in Serum or [id number] 11:08:00 Test Item Value Reference Range Interpretation Comments Blood group antibody screen negative [Presence] in Serum or Plasma (test code = 890-4) [facility]HIV [facility]2 Ab [Presence] in [id number] 11:08:00HIV P24 AgHIV-1/2 AbSt. Dominic HospitalReagin Ab [Presence] in Serum by RPR 2019-03-09 11:08:00 Test Item Value Reference Range Interpretation Comments Reagin Ab [Presence] in Serum by nonreactive nonreactive RPR (test code = 14781-8) [facility] W Auto Differential panel - [id number] 11:08:00 Test Item Value Reference Range Interpretation Comments white blood count (test code = 14.1 K/uL 4.0-11.5 H white blood count) red blood count (test code = red 4.04 M/uL 3.80-5.20 blood count) hemoglobin (test code = 11.1 g/dL 10.5-15.7 hemoglobin) hematocrit (test code = 35.1 % 34.0-50.0 hematocrit) Erythrocyte mean corpuscular 86.9 fL 86-100 volume [Entitic volume] (test code = 15051-6) mean corpuscular hemoglobin (test 27.5 pg 26.2-33.4 [...] H leukocytes in Blood (test code = 64639-1) Granulocytes Immature [#/volume] 0.1 K/uL 0.0-0.03 H in Blood (test code = 43335-5) lymphocyte% (test code = 10.7 % 10.0-50.0 lymphocyte%) mono % (test code = mono %) 4.0 % 3.6-12.0 eos % (test code = eos %) 0.1 % 0.0-5.4 Basophils/100 leukocytes in 0.1 % 0.1-1.2 Unspecified specimen (test code = 31325-9) Neutrophils.band form [#/volume] 11.91 K/uL 1.56-6.13 H in Blood (test code = 97225-8) Lymphocytes [#/volume] in 1.5 K/uL 1.18-3.74 Unspecified specimen by Automated count (test code = 70983-5) mono # (test code = mono #) 0.56 K/uL 0.24-0.86 eos # (test code = eos #) 0.01 K/uL 0.04-0.36 L basophil # (test code = basophil 0.02 K/uL 0.01-0.08 #) NRBC% (test code = NRBC%) 0 /100 WBC 0-0.2 NRBC# (test code = NRBC#) 0 K/uL [facility]different[facility], [id number] 11:08:00 NeutrophilsBandLymphocyteMonocytePlatelet EstimateSt. Dominic HospitalBlood group antibody screen [Presence] in Serum or [id number] 11:08:00 Test Item Value Reference Range Interpretation Comments Blood group antibody screen negative [Presence] in Serum or Plasma (test code = 890-4) [facility]HIV [facility]2 Ab [Presence] in [id number] 11:08:00HIV P24 AgHIV-1/2 AbMaMonroe [facility] HospitalReagin Ab [Presence] in Serum by RPR 2019-03-09 11:08:00 Test Item Value Reference Range Interpretation Comments Reagin Ab [Presence] in Serum by nonreactive nonreactive RPR (test code = 26236-4) [facility]CB [facility] Auto Differential panel - [id number] 11:08:00 Test Item Value Reference Range Interpretation Comments white blood count (test code = 14.1 K/uL 4.0-11.5 H white blood count) red blood count (test code = red 4.04 M/uL 3.80-5.20 blood count) hemoglobin (test code = 11.1 g/dL 10.5-15.7 hemoglobin) hematocrit (test code = 35.1 % 34.0-50.0 hematocrit) Erythrocyte mean corpuscular 86.9 fL 86-100 volume [Entitic volume] (test code = 64715-2) mean corpuscular hemoglobin (test 27.5 pg 26.2-33.4 [...] H leukocytes in Blood (test code = 61590-7) Granulocytes Immature [#/volume] 0.1 K/uL 0.0-0.03 H in Blood (test code = 14418-3) lymphocyte% (test code = 10.7 % 10.0-50.0 lymphocyte%) mono % (test code = mono %) 4.0 % 3.6-12.0 eos % (test code = eos %) 0.1 % 0.0-5.4 Basophils/100 leukocytes in 0.1 % 0.1-1.2 Unspecified specimen (test code = 06887-3) Neutrophils.band form [#/volume] 11.91 K/uL 1.56-6.13 H in Blood (test code = 31165-8) Lymphocytes [#/volume] in 1.5 K/uL 1.18-3.74 Unspecified specimen by Automated count (test code = 95570-1) mono # (test code = mono #) 0.56 K/uL 0.24-0.86 eos # (test code = eos #) 0.01 K/uL 0.04-0.36 L basophil # (test code = basophil 0.02 K/uL 0.01-0.08 #) NRBC% (test code = NRBC%) 0 /100 WBC 0-0.2 NRBC# (test code = NRBC#) 0 K/uL [facility] Groupdifferential panel, [id number] 11:08:00 NeutrophilsBandLymphocyteMonocytePlatelet EstimateMaAsc[facility] GroupBlood group antibody screen [Presence] in Serum or [id number] 11:08:00 Test Item Value Reference Range Interpretation Comments Blood group antibody screen negative [Presence] in Serum or Plasma (test code = 890-4) [facility] GroupHIV 1+2 Ab [Presence] in [id number] 11:08:00HIV P24 AgHIV-1/2 AbMasentara [facility] hospital Medical GroupReagin Ab [Presence] in Serum by RPR 2019-03-09 11:08:00 Test Item Value Reference Range Interpretation Comments Reagin Ab [Presence] in Serum by nonreactive nonreactive RPR (test code = 32717-0) [facility] GroupChlamydia trachomatis+Neisseria gonorrhoeae DNA [Presence] in Cervix by Probe and target amplification [id number] 10:54:00 ResultsMatagoa Medical GroupMicroscopic observation [Identifier] in Cervix by Cyto stain.thin [id number] 10:54:00ResultsMatagorda Medical GroupChlamydia trachomatis+Neisseria gonorrhoeae DNA [Presence] in Cervix by Probe and target amplification [id number] 10:54:00ResultsMatagorda Medical GroupMicroscopic observation [Identifier] in Cervix by Cyto stain.thin [id number] 10:54:00 ResultsMatagorda Medical GroupChlamydia trachomatis+Neisseria gonorrhoeae DNA [Presence] in Cervix by Probe and target amplification [id number] 10:54:00 ResultsMatagorda Medical GroupMicroscopic observation [Identifier] in Cervix by Cyto stain.thin [id number] 10:54:00ResultsMatagorda Medical GroupChlamydia trachomatis+Neisseria gonorrhoeae DNA [Presence] in Cervix by Probe and target amplification [id number] 10:54:00ResultsMatagorda Medical GroupMicroscopic observation [Identifier] in Cervix by Cyto stain.thin [id number] 10:54:00 ResultsMaMonroe Regional HospitalUrinalysis macro (dipstick) panel - Urine 2019-03-04 15:32:00 Test Item Value Reference Range Interpretation Comments Leukocytes (test code = Moderate Leukocytes) Nitrite (test code = negative Nitrite) Urobilinogen (test code = .2 Urobilinogen) Protein (test code = Trace Protein) pH (test code = pH) 7.0 Blood (test code = Blood) Non-Hemolyzed: Trace Specific Cable (test 1.020 code = Specific Cable) Ketone (test code = Trace Ketone) Bilirubin (test code = Negative Bilirubin) Glucose (test code = Negative Glucose) Appearance (test code = Clear Appearance) Color (test code = Color) Yellow [facility] HospitalUrinalysis macro (dipstick) panel - [id number] 15:32:00 Test Item Value Reference Range Interpretation Comments Leukocytes (test code = Moderate Leukocytes) Nitrite (test code = negative Nitrite) Urobilinogen (test code = .2 Urobilinogen) Protein (test code = Trace Protein) pH (test code = pH) 7.0 Blood (test code = Blood) Non-Hemolyzed: Trace Specific Cable (test 1.020 code = Specific Cable) Ketone (test code = Trace Ketone) Bilirubin (test code = Negative Bilirubin) Glucose (test code = Negative Glucose) Appearance (test code = Clear Appearance) Color (test code = Color) Yellow [facility] HospitalUrinalysis macro (dipstick) panel - [id number] 15:32:00 Test Item Value Reference Range Interpretation Comments Leukocytes (test code = Moderate Leukocytes) Nitrite (test code = negative Nitrite) Urobilinogen (test code = .2 Urobilinogen) Protein (test code = Trace Protein) pH (test code = pH) 7.0 Blood (test code = Blood) Non-Hemolyzed: Trace Specific Cable (test 1.020 code = Specific Cable) Ketone (test code = Trace Ketone) Bilirubin (test code = Negative Bilirubin) Glucose (test code = Negative Glucose) Appearance (test code = Clear Appearance) Color (test code = Color) Yellow [facility] HospitalUrinalysis macro (dipstick) panel - [id number] 15:32:00 Test Item Value Reference Range Interpretation Comments Leukocytes (test code = Moderate Leukocytes) Nitrite (test code = negative Nitrite) Urobilinogen (test code = .2 Urobilinogen) Protein (test code = Trace Protein) pH (test code = pH) 7.0 Blood (test code = Blood) Non-Hemolyzed: Trace Specific Cable (test 1.020 code = Specific Cable) Ketone (test code = Trace Ketone) Bilirubin (test code = Negative Bilirubin) Glucose (test code = Negative Glucose) Appearance (test code = Clear Appearance) Color (test code = Color) Yellow [facility] HospitalUrinalysis macro (dipstick) panel - [id number] 15:32:00 Test Item Value Reference Range Interpretation Comments Leukocytes (test code = Moderate Leukocytes) Nitrite (test code = negative Nitrite) Urobilinogen (test code = .2 Urobilinogen) Protein (test code = Trace Protein) pH (test code = pH) 7.0 Blood (test code = Blood) Non-Hemolyzed: Trace Specific Cable (test 1.020 code = Specific Cable) Ketone (test code = Trace Ketone) Bilirubin (test code = Negative Bilirubin) Glucose (test code = Negative Glucose) Appearance (test code = Clear Appearance) Color (test code = Color) Yellow [facility] HospitalUrinalysis macro (dipstick) panel - [id number] 15:32:00 Test Item Value Reference Range Interpretation Comments Leukocytes (test code = Moderate Leukocytes) Nitrite (test code = negative Nitrite) Urobilinogen (test code = .2 Urobilinogen) Protein (test code = Trace Protein) pH (test code = pH) 7.0 Blood (test code = Blood) Non-Hemolyzed: Trace Specific Cable (test 1.020 code = Specific Cable) Ketone (test code = Trace Ketone) Bilirubin (test code = Negative Bilirubin) Glucose (test code = Negative Glucose) Appearance (test code = Clear Appearance) Color (test code = Color) [facility] Differential [facility] - [id number] 12:35:00 Test Item Value Reference Range Interpretation Comments white blood count (test code = 12.4 K/uL 4.0-11.5 white blood count) red blood count (test code = red 3.63 M/uL 3.80-5.20 L blood count) hemoglobin (test code = 10.0 g/dL 10.5-15.7 L hemoglobin) hematocrit (test code = 31.4 % 34.0-50.0 hematocrit) Erythrocyte mean corpuscular 86.5 fL 86-100 volume [Entitic volume] (test code = 12127-1) mean corpuscular hemoglobin (test 27.5 pg 26.2-33.4 [...] 44.4-80.1 leukocytes in Blood (test code = 60482-0) Granulocytes Immature [#/volume] 0.1 K/uL 0.0-0.03 H in Blood (test code = 59685-7) lymphocyte% (test code = 15.7 % 10.0-50.0 lymphocyte%) mono % (test code = mono %) 5.7 % 3.6-12.0 eos % (test code = eos %) 0.3 % 0.0-5.4 Basophils/100 leukocytes in 0.2 % 0.1-1.2 Unspecified specimen (test code = 81347-7) Neutrophils.band form [#/volume] 9.61 K/uL 1.56-6.13 H in Blood (test code = 54499-8) Lymphocytes [#/volume] in 1.9 K/uL 1.18-3.74 Unspecified specimen by Automated count (test code = 21203-2) mono # (test code = mono #) 0.70 K/uL 0.24-0.86 eos # (test code = eos #) 0.04 K/uL 0.04-0.36 basophil # (test code = basophil 0.02 K/uL 0.01-0.08 #) NRBC% (test code = NRBC%) 0 /100 WBC 0-0.2 NRBC# (test code = NRBC#) 0 K/uL [facility] GroupHIV 1+2 Ab [Presence] in [id number] 12:35:00HIV P24 AgHIV-1/2 AbMaAscension [facility] GroupABO & Rh group [Type] in [id number] 12:35:00 Test Item Value Reference Range Interpretation Comments Rh [Type] in Blood (test code = 3+ 77825-2) ABO and Rh group panel - Blood O positive (test code = 17061-7) [facility] GroupBlood group antibody screen [Presence] in Serum or Plasma 2019-03-04 12:35:00 Test Item Value Reference Range Interpretation Comments Blood group antibody screen negative [Presence] in Serum or Plasma (test code = 890-4) [facility] GroupBacteria identified in Urine by [id number] 12:35:00Bacteria Ur CultBaylor Scott & [facility] GroupReagin Ab [Presence] in Serum by [id number] 12:35:00 Test Item Value Reference Range Interpretation Comments Reagin Ab [Presence] in Serum by nonreactive nonreactive RPR (test code = 20078-8) [facility]antib[facility] testing, [id number] 12:35:00 Test Item Value Reference Range Interpretation [...] Minimum inhibitory concentration (GUSTAVO) (test code = 13270-8) Piperacillin+Tazobactam <16 [Susceptibility] by Minimum inhibitory concentration [...] <0.5 inhibitory concentration (GUSTAVO) (test code = 03165-4) Aztreonam [Susceptibility] by Minimum <4 inhibitory concentration (GUSTAVO) (test code = 44-8) Cefuroxime [Susceptibility] by Minimum <4 inhibitory concentration (GUSTAVO) (test code = 14241-4) [facility] W Auto Differential panel - [id number] 12:35:00 Test Item Value Reference Range Interpretation Comments white blood count (test code = 12.4 K/uL 4.0-11.5 white blood count) red blood count (test code = red 3.63 M/uL 3.80-5.20 L blood count) hemoglobin (test code = 10.0 g/dL 10.5-15.7 L hemoglobin) hematocrit (test code = 31.4 % 34.0-50.0 hematocrit) Erythrocyte mean corpuscular 86.5 fL 86-100 volume [Entitic volume] (test code = 36166-2) mean corpuscular hemoglobin (test 27.5 pg 26.2-33.4 [...] 44.4-80.1 leukocytes in Blood (test code = 98093-3) Granulocytes Immature [#/volume] 0.1 K/uL 0.0-0.03 H in Blood (test code = 97001-6) lymphocyte% (test code = 15.7 % 10.0-50.0 lymphocyte%) mono % (test code = mono %) 5.7 % 3.6-12.0 eos % (test code = eos %) 0.3 % 0.0-5.4 Basophils/100 leukocytes in 0.2 % 0.1-1.2 Unspecified specimen (test code = 12978-0) Neutrophils.band form [#/volume] 9.61 K/uL 1.56-6.13 H in Blood (test code = 51499-9) Lymphocytes [#/volume] in 1.9 K/uL 1.18-3.74 Unspecified specimen by Automated count (test code = 24858-7) mono # (test code = mono #) 0.70 K/uL 0.24-0.86 eos # (test code = eos #) 0.04 K/uL 0.04-0.36 basophil # (test code = basophil 0.02 K/uL 0.01-0.08 #) NRBC% (test code = NRBC%) 0 /100 WBC 0-0.2 NRBC# (test code = NRBC#) 0 K/uL [facility]HIV [facility]2 Ab [Presence] in [id number] 12:35:00HIV P24 AgHIV-1/2 AbMatagoPascagoula HospitalABO & Rh group [Type] in [id number] 12:35:00 Test Item Value Reference Range Interpretation Comments Rh [Type] in Blood (test code = 3+ 73263-0) ABO and Rh group panel - Blood O positive (test code = 47467-1) [facility] [Presence] in Serum or Plasma 2019-03-04 12:35:00 Test Item Value Reference Range Interpretation Comments Blood group antibody screen negative [Presence] in Serum or Plasma (test code = 890-4) [facility] HospitalBacteria identified in Urine by [id number] 12:35:00Bacteria Ur [facility] HospitalReagin Ab [Presence] in Serum by [id number] 12:35:00 Test Item Value Reference Range Interpretation Comments Reagin Ab [Presence] in Serum by nonreactive nonreactive RPR (test code = 12513-4) [facility]antib[facility], [id number] 12:35:00 Test Item Value Reference Range Interpretation [...] Minimum inhibitory concentration (GUSTAVO) (test code = 63238-1) Piperacillin+Tazobactam <16 [Susceptibility] by Minimum inhibitory concentration (GUSTAVO) (test code = 412-7) Ceftazidime [Susceptibility] by Minimum <1 inhibitory concentration (UGSTAVO) (test code = 133-9) Ceftriaxone [Susceptibility] by Minimum <1 inhibitory concentration (GUSTAVO) (test code = 141-2) Ciprofloxacin [Susceptibility] by <1 Minimum inhibitory concentration (GUSTAVO) (test code = 185-9) Imipenem [Susceptibility] by Minimum <1 inhibitory concentration (GUSTAVO) (test code = 279-0) Ampicillin+Sulbactam [Susceptibility] =8/4 by Minimum inhibitory concentration (GUSTAVO) (test code = 32-3) Ertapenem [Susceptibility] by Minimum <0.5 inhibitory concentration (GUSTAVO) (test code = 36031-4) Aztreonam [Susceptibility] by Minimum <4 inhibitory concentration (GUSTAVO) (test code = 44-8) Cefuroxime [Susceptibility] by Minimum <4 inhibitory concentration (GUSTAVO) (test code = 37055-7) [facility] W Auto Differential panel - [id number] 12:35:00 Test Item Value Reference Range Interpretation Comments white blood count (test code = 12.4 K/uL 4.0-11.5 white blood count) red blood count (test code = red 3.63 M/uL 3.80-5.20 L blood count) hemoglobin (test code = 10.0 g/dL 10.5-15.7 L hemoglobin) hematocrit (test code = 31.4 % 34.0-50.0 hematocrit) Erythrocyte mean corpuscular 86.5 fL 86-100 volume [Entitic volume] (test code = 17963-0) mean corpuscular hemoglobin (test 27.5 pg 26.2-33.4 [...] 44.4-80.1 leukocytes in Blood (test code = 89958-1) Granulocytes Immature [#/volume] 0.1 K/uL 0.0-0.03 H in Blood (test code = 70032-9) lymphocyte% (test code = 15.7 % 10.0-50.0 lymphocyte%) mono % (test code = mono %) 5.7 % 3.6-12.0 eos % (test code = eos %) 0.3 % 0.0-5.4 Basophils/100 leukocytes in 0.2 % 0.1-1.2 Unspecified specimen (test code = 68529-1) Neutrophils.band form [#/volume] 9.61 K/uL 1.56-6.13 H in Blood (test code = 70308-9) Lymphocytes [#/volume] in 1.9 K/uL 1.18-3.74 Unspecified specimen by Automated count (test code = 13447-8) mono # (test code = mono #) 0.70 K/uL 0.24-0.86 eos # (test code = eos #) 0.04 K/uL 0.04-0.36 basophil # (test code = basophil 0.02 K/uL 0.01-0.08 #) NRBC% (test code = NRBC%) 0 /100 WBC 0-0.2 NRBC# (test code = NRBC#) 0 K/uL [facility] GroupHIV 1+2 Ab [Presence] in [id number] 12:35:00HIV P24 AgHIV-1/2 AbMatagorda Medical GroupABO & Rh group [Type] in [id number] 12:35:00 Test Item Value Reference Range Interpretation Comments Rh [Type] in Blood (test code = 3+ 47719-2) ABO and Rh group panel - Blood O positive (test code = 99195-2) [facility] GroupBlood group antibody screen [Presence] in Serum or Plasma 2019-03-04 12:35:00 Test Item Value Reference Range Interpretation Comments Blood group antibody screen negative [Presence] in Serum or Plasma (test code = 890-4) [facility] GroupBacteria identified in Urine by [id number] 12:35:00Bacteria Ur CultMatagorda Medical GroupReagin Ab [Presence] in Serum by [id number] 12:35:00 Test Item Value Reference Range Interpretation Comments Reagin Ab [Presence] in Serum by nonreactive nonreactive RPR (test code = 82965-1) [facility] Groupantibiotic sensitivity testing, [id number] 12:35:00 Test Item Value Reference Range Interpretation [...] Minimum inhibitory concentration (GUSTAVO) (test code = 70147-5) Piperacillin+Tazobactam <16 [Susceptibility] by Minimum inhibitory concentration [...] <0.5 inhibitory concentration (GUSTAVO) (test code = 62475-5) Aztreonam [Susceptibility] by Minimum <4 inhibitory concentration (GUSTAVO) (test code = 44-8) Cefuroxime [Susceptibility] by Minimum <4 inhibitory concentration (GUSTAVO) (test code = 37099-6) [facility] W Auto Differential panel - [id number] 12:35:00 Test Item Value Reference Range Interpretation Comments white blood count (test code = 12.4 K/uL 4.0-11.5 white blood count) red blood count (test code = red 3.63 M/uL 3.80-5.20 L blood count) hemoglobin (test code = 10.0 g/dL 10.5-15.7 L hemoglobin) hematocrit (test code = 31.4 % 34.0-50.0 hematocrit) Erythrocyte mean corpuscular 86.5 fL 86-100 volume [Entitic volume] (test code = 01912-7) mean corpuscular hemoglobin (test 27.5 pg 26.2-33.4 [...] 44.4-80.1 leukocytes in Blood (test code = 20393-8) Granulocytes Immature [#/volume] 0.1 K/uL 0.0-0.03 H in Blood (test code = 26070-4) lymphocyte% (test code = 15.7 % 10.0-50.0 lymphocyte%) mono % (test code = mono %) 5.7 % 3.6-12.0 eos % (test code = eos %) 0.3 % 0.0-5.4 Basophils/100 leukocytes in 0.2 % 0.1-1.2 Unspecified specimen (test code = 62976-6) Neutrophils.band form [#/volume] 9.61 K/uL 1.56-6.13 H in Blood (test code = 21249-0) Lymphocytes [#/volume] in 1.9 K/uL 1.18-3.74 Unspecified specimen by Automated count (test code = 09098-1) mono # (test code = mono #) 0.70 K/uL 0.24-0.86 eos # (test code = eos #) 0.04 K/uL 0.04-0.36 basophil # (test code = basophil 0.02 K/uL 0.01-0.08 #) NRBC% (test code = NRBC%) 0 /100 WBC 0-0.2 NRBC# (test code = NRBC#) 0 K/uL [facility] GroupHIV 1+2 Ab [Presence] in [id number] 12:35:00HIV P24 AgHIV-1/2 AbMataCentral [facility] GroupABO & Rh group [Type] in [id number] 12:35:00 Test Item Value Reference Range Interpretation Comments Rh [Type] in Blood (test code = 3+ 62928-6) ABO and Rh group panel - Blood O positive (test code = 71419-4) [facility] GroupBlood group antibody screen [Presence] in Serum or Plasma 2019-03-04 12:35:00 Test Item Value Reference Range Interpretation Comments Blood group antibody screen negative [Presence] in Serum or Plasma (test code = 890-4) [facility] GroupBacteria identified in Urine by [id number] 12:35:00Bacteria Ur CultBaylor Scott & [facility] GroupReagin Ab [Presence] in Serum by [id number] 12:35:00 Test Item Value Reference Range Interpretation Comments Reagin Ab [Presence] in Serum by nonreactive nonreactive RPR (test code = 03515-4) [facility], [id number] 12:35:00 Test Item Value Reference Range Interpretation [...] Minimum inhibitory concentration (GUSTAVO) (test code = 03741-5) Piperacillin+Tazobactam <16 [Susceptibility] by Minimum inhibitory concentration [...] <0.5 inhibitory concentration (GUSTAVO) (test code = 66543-1) Aztreonam [Susceptibility] by Minimum <4 inhibitory concentration (GUSTAVO) (test code = 44-8) Cefuroxime [Susceptibility] by Minimum <4 inhibitory concentration (GUSTAVO) (test code = 35957-8) [facility] W Auto Differential panel - [id number] 12:35:00 Test Item Value Reference Range Interpretation Comments white blood count (test code = 12.4 K/uL 4.0-11.5 white blood count) red blood count (test code = red 3.63 M/uL 3.80-5.20 L blood count) hemoglobin (test code = 10.0 g/dL 10.5-15.7 L hemoglobin) hematocrit (test code = 31.4 % 34.0-50.0 hematocrit) Erythrocyte mean corpuscular 86.5 fL 86-100 volume [Entitic volume] (test code = 66732-3) mean corpuscular hemoglobin (test 27.5 pg 26.2-33.4 [...] 44.4-80.1 leukocytes in Blood (test code = 60216-0) Granulocytes Immature [#/volume] 0.1 K/uL 0.0-0.03 H in Blood (test code = 38725-6) lymphocyte% (test code = 15.7 % 10.0-50.0 lymphocyte%) mono % (test code = mono %) 5.7 % 3.6-12.0 eos % (test code = eos %) 0.3 % 0.0-5.4 Basophils/100 leukocytes in 0.2 % 0.1-1.2 Unspecified specimen (test code = 30291-5) Neutrophils.band form [#/volume] 9.61 K/uL 1.56-6.13 H in Blood (test code = 02581-3) Lymphocytes [#/volume] in 1.9 K/uL 1.18-3.74 Unspecified specimen by Automated count (test code = 74249-7) mono # (test code = mono #) 0.70 K/uL 0.24-0.86 eos # (test code = eos #) 0.04 K/uL 0.04-0.36 basophil # (test code = basophil 0.02 K/uL 0.01-0.08 #) NRBC% (test code = NRBC%) 0 /100 WBC 0-0.2 NRBC# (test code = NRBC#) 0 K/uL [facility] GroupHIV 1+2 Ab [Presence] in [id number] 12:35:00HIV P24 AgHIV-1/2 AbMatagoSt. Vincent's Chilton GroupABO & Rh group [Type] in [id number] 12:35:00 Test Item Value Reference Range Interpretation Comments Rh [Type] in Blood (test code = 3+ 42632-5) ABO and Rh group panel - Blood O positive (test code = 49091-9) [facility] GroupBlood group antibody screen [Presence] in Serum or Plasma 2019-03-04 12:35:00 Test Item Value Reference Range Interpretation Comments Blood group antibody screen negative [Presence] in Serum or Plasma (test code = 890-4) [facility] GroupBacteria identified in Urine by [id number] 12:35:00Bacteria Ur CultMataCentral [facility] Medical Center GroupReagin Ab [Presence] in Serum by [id number] 12:35:00 Test Item Value Reference Range Interpretation Comments Reagin Ab [Presence] in Serum by nonreactive nonreactive RPR (test code = 04836-9) [facility] Groupantibiotic sensitivity testing, [id number] 12:35:00 Test Item Value Reference Range Interpretation [...] Minimum inhibitory concentration (GUSTAVO) (test code = 10730-2) Piperacillin+Tazobactam <16 [Susceptibility] by Minimum inhibitory concentration [...] <0.5 inhibitory concentration (GUSTAVO) (test code = 36053-7) Aztreonam [Susceptibility] by Minimum <4 inhibitory concentration (GUSTAVO) (test code = 44-8) Cefuroxime [Susceptibility] by Minimum <4 inhibitory concentration (GUSTAVO) (test code = 19274-6) [facility] surface Ag [Presence] in Serum 2019-03-04 02:36:00 Test Item Value Reference Range Interpretation Comments .hepatitis B surface antigen (test negative negative code = .hepatitis B surface antigen) [facility] B virus surface Ag [Presence] in Serum 2019-03-04 02:36:00 Test Item Value Reference Range Interpretation Comments .hepatitis B surface antigen (test negative negative code = .hepatitis B surface antigen) [facility] B virus surface Ag [Presence] in Serum 2019-03-04 02:36:00 Test Item Value Reference Range Interpretation Comments .hepatitis B surface antigen (test negative negative code = .hepatitis B surface antigen) [facility] B virus surface Ag [Presence] in Serum 2019-03-04 02:36:00 Test Item Value Reference Range Interpretation Comments .hepatitis B surface antigen (test negative negative code = .hepatitis B surface antigen) [facility] B virus surface Ag [Presence] in Serum 2019-03-04 02:36:00 Test Item Value Reference Range Interpretation Comments .hepatitis B surface antigen (test negative negative code = .hepatitis B surface antigen) [facility]
[2022-03-11 21:32] LABS: Urine Blood 1+ (Negative); Urine Glucose Negative (Negative); Urine Protein 1+ (Negative); Urine pH 6.5 (5.0-7.0)
[2022-03-11 22:02] LABS: Urine Bacteria <20 /HPF (<20); Urine Mucus 1+ /HPF (None Seen)
--- NOTE | 2022-03-11 22:19 | RAD REPORT ---
EXAM DESCRIPTION: CT - Stone Protocol - 03/11/2022 10:01 pm CLINICAL HISTORY: Abdominal pain./left flank pain COMPARISON: December 2021 TECHNIQUE: Computed axial tomography of the abdomen pelvis was obtained without oral or IV contrast. Lack of IV and oral contrast limits evaluation of solid organs, appendix, bowel, and vessels. Aguilar l reformatted images were obtained and reviewed. All CT scans are performed using dose optimization technique as appropriate and may include automated exposure control or mA/KV adjustment according to patient size. FINDINGS: A renal calculus is not seen. An ureteral calculus is not noted. A bladder calculus is not present. Small left renal cyst. No hydronephrosis Borderline hepatomegaly Spleen, pancreas and adrenals appear grossly normal There is no evidence of diverticulitis. Fluid within nondilated small bowel IMPRESSION: Negative for a genitourinary calculus Fluid within nondilated small bowel is nonspecific but may indicate an enteritis Borderline hepatomegaly
[2022-03-11 22:37] LABS: SARS-COV-2 RT PCR NEGATIVE (NEGATIVE)
[2022-03-11] MEDS ORDERED: KETOROLAC 30 MG/ML INJ ONE (22:44)
[2022-03-11 23:08] LABS: Absolute Lymphocytes (CBC) 2.8 K/uL (0.7-4.9); Lymphocytes % 37.3 % (15.3-44.8); MCV 76.6 fL (80-100); MPV 9.2 fL (7.6-11.3); RBC Red Blood Cell Count 4.57 M/uL (3.86-4.86)
[2022-03-11] MEDS ORDERED: CEFTRIAXONE 1000 MG/VIAL ONE (23:17)
[2022-03-11] MEDS ORDERED: MORPHINE 2 MG/ML SYR ONE (23:17)
[2022-03-11 23:37] LABS: Potassium 3.2 mmol/L (3.5-5.1)
[2022-03-11] MEDS ORDERED: NA CHLORIDE 0.9% 500 ML ONE (23:39)
--- NOTE | 2022-03-11 23:51 | ER ---
Nurse's Notes [facility] Name: Gloria Modi Age: 26 yrs Sex: Female : 1995 Arrival Date: 03/11/2022 Time: 21:10 Bed 12 Private MD: Diagnosis: UTI/ Urinary tract infection, site not specified;Vomiting;Diarrhea, unspecified Presentation: 03/11 21:16 Chief complaint: Patient states: left flank pain that began on Saturday, N/V and diarrhea kb3 that began Saturday, lower abdominal pain that began today. Denies dysuria, fever. Coronavirus screen: Vaccine status: Patient reports receiving the 1st dose of the Covid vaccine. Client denies travel out of the [place] in the last 14 days. Ebola Screen: Patient negative for fever greater than or equal to 101.5 degrees Fahrenheit, and additional compatible Ebola Virus Disease symptoms Patient denies exposure to infectious person. Patient denies travel to an Ebola-affected area in the 21 days before illness onset. Initial Sepsis Screen: Does the patient meet any 2 criteria? No. Patient's initial sepsis screen is negative. Does the patient have a suspected source of infection? No. Patient's initial sepsis screen is negative. Risk Assessment: Do you want to hurt yourself or someone else? Patient reports no desire to harm self or others. Onset of symptoms was March 05, 2022. 21:16 Method Of Arrival: Ambulatory kb3 21:16 Acuity: NICO 3 kb3 Triage Assessment: 21:20 General: Appears in no apparent distress. Behavior is calm, cooperative. Pain: kb3 Complains of pain in right low back Pain radiates to right lower quadrant and left lower quadrant Pain currently is 10 out of 10 on a pain scale. GI: Reports lower abdominal pain, diarrhea, nausea, vomiting. 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 - Social history:: Smoking status: Reported history of juuling and/or vaping. Screenin:42 Abuse screen: Denies threats or abuse. Denies injuries from another. Nutritional hb screening: No deficits noted. Tuberculosis screening: No symptoms or risk factors identified. Fall Risk None identified. Assessment: 22:41 General: Appears in no apparent distress. Behavior is calm, cooperative. Neuro: Level hb of Consciousness is awake, alert, obeys commands, Oriented to person, place, time, situation. Cardiovascular: Patient's skin is warm and dry. Respiratory: Respiratory effort is even, unlabored, Respiratory pattern is regular, symmetrical. GI: Reports diarrhea, nausea, vomiting. : Reports left flank pain. EENT: No signs and/or symptoms were reported regarding the EENT system. Derm: Skin is pink, warm \T\ dry. Musculoskeletal: No signs and/or symptoms reported regarding the musculoskeletal system. 23:48 Reassessment: Patient appears in no apparent distress at this time. Patient and/or hb family updated on plan of care and expected duration. Pain level reassessed. Patient is alert, oriented x 3, equal unlabored respirations, skin warm/dry/pink. Vital Signs: 21:16 BP 107 / 90; Pulse 101; Resp 20; Temp 98.5; Pulse Ox 100% ; Weight 44.45 kg; Height 5 kb3 ft. 0 in. (152.40 cm); Pain 10/10; 21:16 Body Mass Index 19.14 (44.45 kg, 152.40 cm) kb3 ED Course: 21:10 Patient arrived in ED. bp1 21:12 Lenny Ralph PA is PHCP. jmm 21:12 Jeremias Hyatt MD is Attending Physician. jmm 21:19 Triage completed. kb3 21:20 Arm band placed on right wrist. kb3 22:01 CT Stone Protocol In Process Unspecified. EDMS 22:40 Missed attempt(s): 20 gauge in right antecubital area. Bleeding controlled, band aid aa9 applied, catheter tip intact. 22:42 Patient has correct armband on for positive identification. hb 22:42 Inserted saline lock: 20 gauge in left antecubital area, using aseptic technique. Blood aa9 collected. 22:44 Martha Meléndez, RN is Primary Nurse. aa9 22:44 CBC with Diff Sent. aa9 22:44 BMP Sent. aa9 22:45 Test, Serum Sent. aa9 03/12 00:00 No provider procedures requiring assistance completed. IV discontinued, intact, aa9 bleeding controlled, No redness/swelling at site. Pressure dressing applied. Administered Medications: 03/11 22:46 Drug: TORadol (ketorolac) 30 mg Route: IVP; Site: left antecubital; hb 23:36 Follow up: Response: No adverse reaction; Pain is unchanged, physician notified aa9 23:23 Drug: Rocephin (cefTRIAXone) 1 grams Route: IV; Rate: calculated rate; Site: left aa9 antecubital; 23:36 Follow up: Response: No adverse reaction; IV Status: Completed infusion; IV Intake: [id number] 23:23 Drug: morphine 2 mg Route: IVP; Infused Over: 4 mins; Site: left antecubital; aa9 23:37 Follow up: Response: No adverse reaction aa9 23:43 Drug: NS 0.9% 500 ml Route: IV; Rate: bolus; Site: left antecubital; aa9 03/12 00:01 Follow up: Response: No adverse reaction; IV Status: Completed infusion; IV Intake: aa9 400ml Medication: 03/11 22:42 VIS not applicable for this client. hb Intake: 23:36 IV: 10ml; Total: 10ml. aa9 03/12 00:01 IV: 400ml; Total: 410ml. aa9 Outcome: 03/11 23:50 Discharge ordered by MD. wong 03/12 00:00 Discharged to home ambulatory. aa9 Condition: stable Discharge instructions given to patient, Instructed on discharge instructions, follow up and referral plans. medication usage, Demonstrated understanding of instructions, follow-up care, medications, Prescriptions given X 3. 00:01 Patient left the ED. aa9 Addendum: 03/14/2022 07:28 Addendum: Culture Results: Positive urine culture. No further action required. Bacteria i w sensitive to prescribed antibiotic. Signatures: Dispatcher [employer] EDMS Lenny Ralph PA PA jmm Williams, Irene, RN RN iw Meena Garcia RN RN Michell Mckeon Aylin RN RN aa9 Shanice Terry RN RN kb3 Corrections: (The following items were deleted from the chart) 03/11 21:20 21:19 PMHx: seperation anxiety; kb3 kb3
--- NOTE | 2022-03-11 23:52 | EDPHYS ---
Physician Documentation [facility] Name: Gloria Modi Age: 26 yrs Sex: Female : 1995 Arrival Date: 03/11/2022 Time: 21:10 Bed 12 Private MD: ED Physician Jeremias Hyatt HPI: 03/11 21:27 This 26 yrs old Female presents to ER via Ambulatory with complaints of Flank Pain, jmm Abdominal Pain, Back Pain. 21:27 The patient complains of pain in the left flank. Onset: The symptoms/episode jmm began/occurred gradually, 1 day(s) ago. Modifying factors: The symptoms are alleviated by nothing. the symptoms are aggravated by nothing. Associated signs and symptoms: Pertinent positives: diarrhea, nausea. This is a 26 year old female with a history of bipolar, ptsd, that presents to the ED with complaints of left flank pain. States her children have similar symptoms.. 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 - Social history:: Smoking status: Reported history of juuling and/or vaping. ROS: 23:34 Constitutional: Positive for body aches, chills. jmm 23:34 Respiratory: Positive for cough. 23:34 Abdomen/GI: Positive for abdominal pain, nausea, diarrhea. 23:34 Back: Positive for flank pain. 23:34 All other systems are negative. Exam: 23:34 Head/Face: atraumatic. Eyes: EOMI, no conjunctival erythema appreciated ENT: Moist jmm Mucus Membranes Neck: Trachea midline, Supple Chest/axilla: Normal chest wall appearance and motion. Cardiovascular: Regular rate and rhythm. No edema appreciated Respiratory: Normal respirations, no respiratory distress appreciated 23:34 Skin: General appearance color normal MS/ Extremity: Moves all extremities, no obvious deformities appreciated, no edema noted to the lower extremities Neuro: Awake and alert Psych: Behavior is normal, Mood is normal, Patient is cooperative and pleasant 23:34 Constitutional: The patient appears alert, awake, anxious. 23:34 Abdomen/GI: Palpation: mild abdominal tenderness, in the posterior aspect of left lateral abdomen. Vital Signs: 21:16 BP 107 / 90; Pulse 101; Resp 20; Temp 98.5; Pulse Ox 100% ; Weight 44.45 kg; Height 5 kb3 ft. 0 in. (152.40 cm); Pain 10/10; 21:16 Body Mass Index 19.14 (44.45 kg, 152.40 cm) kb3 MDM: 21:29 Patient medically screened. marvin 23:49 Data reviewed: vital signs, nurses notes. Counseling: I had a detailed discussion with marvin the patient and/or guardian regarding: the historical points, exam findings, and any diagnostic results supporting the discharge/admit diagnosis, lab results, radiology results, the need for outpatient follow up, to return to the emergency department if symptoms worsen or persist or if there are any questions or concerns that arise at home. ED course: Patient is alert and non toxic in appearance in the ED. CT revealed most likely enterititis. Labs unremarkable. Advised to follow up with pcp and otherwise given strict return precautions. Patient understood and agrees with the plan of care. . 03/11 21:27 Order name: COVID-19/FLU A+B; Complete Time: 22:37 [facility] 03/11 21:32 Order name: Urine Microscopic Only; Complete Time: 22:19 [facility] 03/11 21:32 Order name: Urine Culture [facility] 03/11 21:32 Order name: Urine Dipstick-Ancillary; Complete Time: 21:32 [facility] 03/11 21:34 Order name: Test, Serum sp 03/11 21:34 Order name: Test Urine - POC; Complete Time: 21:38 sp 03/11 21:27 Order name: Urine Dipstick-Ancillary (obtain specimen); Complete Time: 22:31 [facility] 03/11 21:40 Order name: CBC with Diff; Complete Time: 23:10 [facility] 03/11 21:40 Order name: BMP; Complete Time: 23:38 [facility] 03/11 21:40 Order name: CT Stone Protocol; Complete Time: 22:23 [facility] 03/11 21:27 Order name: Urine Test (obtain specimen); Complete Time: 22:31 [facility] Administered Medications: 22:46 Drug: TORadol (ketorolac) 30 mg Route: IVP; Site: left antecubital; hb 23:36 Follow up: Response: No adverse reaction; Pain is unchanged, physician notified aa9 23:23 Drug: Rocephin (cefTRIAXone) 1 grams Route: IV; Rate: calculated rate; Site: left aa9 antecubital; 23:36 Follow up: Response: No adverse reaction; IV Status: Completed infusion; IV Intake: [id number] 23:23 Drug: morphine 2 mg Route: IVP; Infused Over: 4 mins; Site: left antecubital; aa9 23:37 Follow up: Response: No adverse reaction aa9 23:43 Drug: NS 0.9% 500 ml Route: IV; Rate: bolus; Site: left antecubital; aa9 03/12 00:01 Follow up: Response: No adverse reaction; IV Status: Completed infusion; IV Intake: aa9 400ml Disposition: 01:14 Co-signature as Attending Physician, Jeremias Hyatt MD I agree with the assessment and rt plan of care. Disposition Summary: 03/11/22 23:50 Discharge Ordered Location: Home jm Condition: Stable jmm Diagnosis - UTI/ Urinary tract infection, site not specified jmm - Vomiting jmm - Diarrhea, unspecified jmm Followup: jmm - With: Private Physician - When: 2 - 3 days - Reason: Recheck today's complaints, Continuance of care, Re-evaluation by your physician Discharge Instructions: - Discharge Summary Sheet jmm - Food Choices to Help Relieve Diarrhea, Adult jmm - Diarrhea, Adult jmm - Urinary Tract Infection, Adult jmm - Vomiting, Adult jmm Forms: - Medication Reconciliation Form jmm - Thank You Letter jmm - Antibiotic Education jmm - Prescription Opioid Use jmm - Work release form aa9 Prescriptions: - ondansetron 4 mg Oral tablet,disintegrating - take 1 tablet by ORAL route every 4-6 hours As needed; 20 tablet; Refills: 0, jmm Product Selection Permitted - dicyclomine 20 mg Oral Tablet - take 1 tablet by ORAL route 3 times per day As needed; 20 tablet; Refills: 0, [facility] Product Selection Permitted - Cephalexin 500 mg Oral Capsule - take 1 capsule by ORAL route every 8 hours for 10 days; 30 capsule; Refills: 0, [facility] Product Selection Permitted Signatures: Dispatcher [employer] Lenny Scales PA PA Meena Cuellar RN RN Martha Meléndez RN RN aa9 Shanice Terry RN RN kb3 Jeremias Hyatt MD MD rt Corrections: (The following items were deleted from the chart) 03/11 21:20 21:19 PMHx: seperation anxiety; kb3 kb3
[2022-03-12 00:22] VITALS: BP 107/90; TEMP 98.5; O2SAT 100
== END 2022-03-12 00:01 | disposition home or self-care (01) ==
LOC: ER 21:06
DX: N39.0 Urinary tract infection, site not specified (principal); R19.7 Diarrhea, unspecified; F31.9 Bipolar disorder, unspecified; Z88.5 Allergy status to narcotic agent
CPT/HCPCS: 87088; 85025; 87086; 80048; 36415; 81025; 0240U; 76377; 74176; 96375; 96374; 99284; J2270; J7040; 81003; 81015; 87077; 87186

== ENCOUNTER 2022-05-03 10:04 | Emergency (ER) | payer OTHER ==
--- OUTSIDE RECORDS SUMMARY | 2022-05-03 10:12 | XMS REPORT | Continuity of Care Document ---
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 Test 1998-02-26 COVID-19 Vaccine [facility] 00:00:00 (#1) [code = COVID-19 Vaccine (#1)] Future Scheduled Test 1998-02-26 COVID-19 Vaccine [facility] 00:00:00 (#1) [code = COVID-19 Vaccine (#1)] Future Scheduled Test [address] [facility] 00:00:00 [code = Fluoride Varnish] Future Scheduled Test Screening for [facility] malignant neoplasm of cervix (procedure) [code = 173135213] Future Scheduled Test INFLUENZA VACCINE [facility] [code = INFLUENZA VACCINE] Future Scheduled Test [facility] [code = CHLAMYDIA SCREENING] Future Scheduled Test COVID-19 VACCINE (1) [facility] [code = COVID-19 VACCINE (1)] Instructions [place] [facility] Encounters Start End Encounter Admission Attending Care Care Encounter Source Date/Time Date/Time Type Type Clinicians Facility Department ID 2022-03-02 Inpatient TEXANA TEXANDREA [id number] [place] 13:57:04 [id number] [facility] 2022-01-22 Outpatient [facility] [id number] [place] 15:22:36 [id number] [facility] 2022-01-14 Outpatient [facility] [id number] [place] 19:22:32 [id number] [facility] 2022-01-11 Outpatient [facility] [id number] [place] 15:52:30 [id number] [facility] 2022-03-16 2022-03-16 Outpatient LUKAS KONG [facility] [id number] [facility] 14:00:00 14:00:00 [facility] 2022-02-20 Outpatient Elin [facility] [id number] [place] 00:00:00 00:00:00 1108 [facility] 2022-02-20 2022-02-20 Eh [facility] [place] - [id number] M at[place]or 00:00:00 00:00:00 Lizbet irwin [facility] SUPERVISOR MAILS: [address] [facility] [address], [place] [address] , Ph. 2022-02-20 2022-02-20 Telephone Lj [facility] [id number] Univers 00:00:00 00:00:00 [facility] [id number] ity of [place] [id number] Eliel as TERESE?BLEA [id number] [address] MEDICAL OFFICE [facility] 2022-02-09 2022-02-09 Outpatient Elin [facility] [id number] [place] 00:00:00 00:00:00 1028 [facility] 2022-01-24 2022-01-24 Outpatient [facility] [id number] [place] 08:45:00 08:45:00 [facility] 2022-01-22 2022-01-[id number] Univers 00:00:00 00:00:00 [facility] [id number] [facility] [id number] Eliel as TERESE?BLEA [id number] [place] dicmeg RICKS [address] [place] [address] MEDICAL OFFICE [facility] 2022-01-17 2022-01-17 Outpatient Elin JADE [facility] [id number] [place] 00:00:00 00:00:00 1005 [facility] 2022-01-17 2022-01-17 Eh [facility] [place] - [id number] M atagor 00:00:00 00:00:00 Lizbet irwin [facility] SUPERVISOR MAILS: [address] [facility] [address], [place] [address] , Ph. 2022-01-10 2022-01-10 Telephone Lj [facility] [id number] Univers 00:00:00 00:00:00 [facility] [id number] ity of [place] [id number] Eliel as TERESE?BLEA [id number] [place] caesar [address] OFFICE [facility] 2022-01-05 2022-01-05 [facility] [id number] Univers 16:00:00 16:52:54 Visit [facility] [id number] ity of [place] [id number] Eliel as TERESE?BLEA [id number] [place] caesar RICKS [address] [place] [address] OFFICE [facility] 2022-01-05 2022-01-05 Outpatient R LUKAS CALHOUN [facility] [id number] Univers 16:00:00 16:52:54 LUKAS CALHOUN itila of [facility] 2022-01-05 2022-01-05 Letter Lj [facility] [id number] Univers 00:00:00 00:00:00 (Out) [facility] [id number] ity of [facility] [id number] Eliel as TERESE?BLEA [id number] [place] dicmeg RICKS [address] [place] [address] OFFICE [facility] 2022-01-04 2022-01-04 Outpatient Elin JADE [facility] [id number] [place] 00:00:00 00:00:00 09 Medical Group 2022-01-04 2022-01-04 Eh MM [place] - [id number] M at[place]or 00:00:00 00:00:00 Lizbet Bena, Medical Medical SUPERVISOR MAILS: [address] [address] , Ph. 2021-10-23 2021-10-23 [place] [id number] -2021 [place] 02:43:00 02:43:00 0711 Medical Group 2021-10-23 2021-10-23 Eh MM [place] - [id number] M at[place] 00:00:00 00:00:00 Lizbet Bean, Medical Medical SUPERVISOR MAILS: [address] [place] [address] , Ph. 2021-10-05 2021-10-05 [place] [id number] -2021 [place] 09:37:00 09:37:00 0623 Medical Group 2021-10-05 2021-10-05 Eh MM [place] - [id number] M at[place] 00:00:00 00:00:00 Lizbet Bean, Medical Medical SUPERVISOR MAILS: [address] [place] [address] , Ph. 2021-10-04 2021-10-04 [place] [id number] -2021 [place] 04:46:00 04:46:00 0622 Medical Group 2021-09-14 2021-09-14 [place] [id number] [place] 04:46:00 04:46:00 0602 Medical Group 2021-09-14 2021-09-14 Maritza MM [place] - [id number] [place] 00:00:00 00:00:00 Discovery alida Britt ACCESS SERVICES REPRESENTATIVE-C: [facility] Medical [address] [place] [address] , Ph. 2021-09-05 2021-09-05 Outpatient Yan_W [facility] [id number] [place] 10:23:00 10:23:00 0524 Medical Group 2021-09-05 2021-09-05 Loki Alfredo [facility] [place] - [id number] [place] 00:00:00 00:00:00 MD: Harika Daly [address], [facility] [place] [facility] [address] , Ph. 2021-08-24 2021-08-24 Outpatient Yan_W [facility] [id number] [place] 10:31:00 10:31:00 0512 Medical Group 2021-08-14 2021-08-14 Outpatient Hawkins_M [facility] [id number] -2021 [place] 04:26:00 04:26:00 0502 Medical Group 2021-08-14 2021-08-14 Outpatient Hawkins_M [facility] [id number] -2021 [place] 04:26:00 04:26:00 0509 Medical Group 2021-07-27 2021-07-27 Outpatient Hawkins_M [facility] [id number] -2021 [place] 12:50:00 12:50:00 0414 Medical Group 2021-07-27 2021-07-27 Outpatient [place] [id number] -2021 [place] 02:53:00 02:53:00 HANA 0414 [facility] Outre h Program 2021-07-27 2021-07-27 Eh [facility] [place] - [id number] M at[place]or 00:00:00 00:00:00 Lizbet Bean [facility] Medical SUPERVISOR MAILS: [address] [address] , Ph. 2021-07-25 2021-07-25 Outpatient Yan_W [facility] [id number] [place] 11:17:00 11:17:00 0412 Medical Group 2021-07-25 2021-07-25 [place] [id number] [place] 11:17:00 11:17:00 0413 Medical Group 2021-07-25 2021-07-25 Loki Ramos DUG [place] - [id number] [place] 00:00:00 00:00:00 MD: Harika Daly [address], Otolaryngol [facility] [address] , Ph. 2021-07-24 2021-07-24 [place] [id number] -2021 [place] 02:56:00 02:56:00 0411 [facility] 2021-07-24 2021-07-24 Eh SANDY [place] - [id number] M at[place]or 00:00:00 00:00:00 Lizbte irwin [facility] Medical SUPERVISOR MAILS: [address] [address], [place] [address] , Ph. 2021-07-12 2021-07-12 [place] [id number] -2021 [place] 03:56:00 03:56:00 0330 Medical [facility] 2021-07-12 2021-07-12 [place] [id number] -2021 [place] 03:56:00 03:56:00 0331 Medical [facility] 2021-07-12 2021-07-12 Eh S[place] - [id number] M at[place] 00:00:00 00:00:00 Lizbet irwin [facility] Medical SUPERVISOR MAILS: [address] [address] , Ph. 2021-06-21 2021-06-21 [place] [id number] -2021 [place] 04:09:00 04:09:00 0309 Medical Group 2021-06-21 2021-06-21 Eh [place] - [id number] M at[place] 00:00:00 00:00:00 Lizbet Bean Medical Medical SUPERVISOR MAILS: [address] [facility] [address], [place] [address] , Ph. 2021-06-02 2021-06-02 [facility]patient [facility] [id number] -2021 [place] 03:48:00 03:48:00 0218 [facility] Group 2021-06-02 2021-06-02 Eh [place] - [id number] M at[place] 00:00:00 00:00:00 Lizbet Bean Medical Medical SUPERVISOR MAILS: [address] [facility] [address], [place] [address] , Ph. 2021-05-22 2021-05-22 Outpatient Hawkins_M [facility] [id number] -2021 [place] 12:37:00 12:37:00 0207 alida Medical Group 2021-05-22 2021-05-22 Eh S[place] - [id number] M at[place] 00:00:00 00:00:00 Lizbet Bean Medical Medical SUPERVISOR MAILS: [address] [facility] [address], [place] [address] , Ph. 2021-05-10 2021-05-10 Outpatient AMBREEN[place] [id number] [place] 05:02:00 05:02:00 JASPAL 0126 [facility] 2021-05-09 2021-05-09 [facility] [id number] -2021 [place] 11:18:00 11:18:00 0125 Medical Group 2021-05-09 2021-05-09 Eh [place] - [id number] M [place] 00:00:00 00:00:00 Lizbet Bean Medical Medical SUPERVISOR MAILS: [address] [facility] [address], [place] [address] , Ph. 2021-04-12 2021-04-12 [place] [id number] -2021 [place] 04:07:00 04:07:00 0124 da Medical Group 2021-04-12 2021-04-12 Outpatient Hawkins_M MMG MMG [id number] -2021 [place] 04:07:00 04:07:00 0121 da Medical Group 2021-03-23 2021-03-23 [place] [id number] -2020 [place] 04:37:00 04:37:00 1209 da Medical Group 2021-03-23 2021-03-23 [place] [id number] -2020 [place] 04:37:00 04:37:00 1216 Medical Group 2021-03-23 2021-03-23 [place] [id number] -2020 [place] 04:37:00 04:37:00 1228 Medical Group 2021-03-23 2021-03-23 [facility] [place] - [id number] [place] 00:00:00 00:00:00 Lizbet Daly [facility] Medical SUPERVISOR MAILS: [address] [facility] [address], [place] [address] , Ph. 2020-05-19 2020-05-19 [place] [id number] -2020 [place] 03:02:00 03:02:00 0209 Medical Group 2020-05-19 2020-05-19 [place] [id number] -2020 [place] 03:02:00 03:02:00 0224 Medical Group 2020-05-19 2020-05-19 [place] [id number] -2020 [place] 03:02:00 03:02:00 0204 Medical Group 2020-05-18 2020-05-18 Outpatient Rutledge_L MMG MM [id number] [place] 03:00:00 03:00:00 0203 Medical Group 2020-03-02 2020-03-02 Outpatient Rutledge_L MMG MMG [id number] [place] 02:24:00 02:24:00 1118 da Medical Group 2020-01-08 2020-01-08 Outpatient AMBREEN_FAR [facility] [id number] [place] 01:41:00 01:41:00 HANA [facility]25 [facility] 2020-01-08 2020-01-08 Outpatient AMBREEN_FAR [facility] [id number] [place] 01:41:00 01:41:00 HANA 1012 [facility] 2020-01-08 2020-01-08 Outpatient AMBREEN_FAR MEHOP [facility] [id number] [place] 01:41:00 01:41:00 HANA 1209 [facility] 2019-12-23 2019-12-23 Outpatient Rutledge_L MMG MMG [id number] [place] 12:21:00 12:21:00 1008 Medical Group 2019-10-31 2019-10-31 Outpatient Rutledge_L MMG MMG [id number] [place] 07:51:00 07:51:00 0718 Medical Group 2019-10-30 2019-10-30 Outpatient Rutledge_L MMG MMG [id number] [place] 04:04:00 04:04:00 0717 Medical Group 2019-10-30 2019-10-30 Luis Felipe MMG [place] - [id number] M at[place] 00:00:00 00:00:00 Discovery alida Hernadez MD: [address] [place] [address] , Ph. [phone] 2019-09-02 2019-09-02 Outpatient Rutledge_L MMG MMG [id number] [...] MMG MMG [id number] [place] 09:58:00 09:58:00 0326 da Medical Group 2019-07-01 2019-07-01 Outpatient Rutledge_L MMG MMG [id number] [place] 08:57:00 08:57:00 0318 Medical Group 2019-07-01 2019-07-01 Anabel MMG [place] - [id number] M [place] 00:00:00 00:00:00 George Hoffman, Medical Medica toy MD: [address] [address] , Ph. [phone] 2019-06-11 2019-06-11 Outpatient Rutledge_L MMG MMG [id number] [place] 07:31:00 07:31:00 0227 Medical Group 2019-06-10 2019-06-10 Outpatient Rutledge_L MMG MMG [id number] [place] 01:13:00 01:13:00 0226 Medical Group 2019-06-10 2019-06-10 Anabel MMG [place] - [id number] M [place] 00:00:00 00:00:00 George Hoffman, Medical Medica l MD: [address] [address] , Ph. [phone] 2019-06-09 2019-06-09 Outpatient Rutledge_L MMG MMG [id number] [place] 10:05:00 10:05:00 0225 Medical Group 2019-05-26 2019-05-26 Outpatient Rutledge_L MMG MMG [id number] [place] 10:08:00 10:08:00 0218 da Medical Group 2019-05-24 2019-05-24 Outpatient Rutledge_L MMG MMG [id number] [place] 01:23:00 01:23:00 0209 da Medical Group 2019-05-20 2019-05-20 Outpatient Rutledge_L MMG MMG [id number] [place] 04:23:00 04:23:00 0205 Medical Group 2019-05-20 2019-05-20 Anabel [facility] [place] - [id number] M atagor 00:00:00 00:00:00 George Hoffman Medical Medica toy MD: [address] [place] [address] , Ph. [phone] 2019-05-15 2019-05-15 Outpatient Rutledge_L MMG MMG [id number] [place] 10:18:00 10:18:00 0204 Medical Group 2019-05-12 2019-05-12 Outpatient Rutledge_L MMG MMG [id number] [place] 02:38:00 02:38:00 0128 Medical Group 2019-05-02 2019-05-02 Outpatient Rutledge_L MMG MMG [id number] [place] 10:43:00 10:43:00 0118 Medical Group 2019-04-28 2019-04-28 Outpatient Rutledge_L MMG MMG [id number] [place] 11:48:00 11:48:00 0114 Medical Group 2019-04-28 2019-04-28 [facility] [place] - [id number] M at[place]or 00:00:00 00:00:00 Discovery alida Hernadez MD: [address] [place] [address] , Ph. [phone] 2019-04-27 2019-04-27 Outpatient Rutledge_L MMG MMG [id number] [place] 11:34:00 11:34:00 0113 Medical Group 2019-04-26 2019-04-26 Outpatient Rutledge_L MMG MMG [id number] [place] 12:05:00 12:05:00 0112 da Medical Group 2019-04-24 2019-04-24 Outpatient Rutledge_L MMG MMG [id number] [place] 04:21:00 04:21:00 0110 da Medical Group 2019-04-24 2019-04-24 Harper Ewing MMG [place] - [id number] [place] 00:00:00 00:00:00 Discovery alida Strange NP: [address] [place] [address] , Ph. [phone] 2019-04-23 2019-04-23 Outpatient Rutledge_L MMG MMG [id number] [place] 12:43:00 12:43:00 0109 Medical Group 2019-04-23 2019-04-23 Luis Felipe [place] - [id number] M [place] 00:00:00 00:00:00 Discovery alida Hernadez MD: [address] [place] [address] , Ph. [phone] 2019-04-19 2019-04-19 Outpatient Rutledge_L MMG MMG [id number] [place] 09:06:00 09:06:00 0105 da Medical Group 2019-04-19 2019-04-19 Outpatient Rutledge_L MMG MMG [id number] [place] 09:06:00 09:06:00 0108 Medical Group 2019-04-16 2019-04-16 Outpatient Rutledge_L MMG MMG [id number] [place] 05:03:00 05:03:00 0102 Medical Group 2019-04-16 2019-04-16 Outpatient Rutledge_L MMG MMG [id number] [place] 05:03:00 05:03:00 0103 Medical Group 2019-04-16 2019-04-16 Luis Felipe [place] - [id number] M at[place]or 00:00:00 00:00:00 Discovery alida Hernadez MD: [address] [place] [address] , Ph. [phone] 2019-04-02 2019-04-02 Anabel [facility] [place] - [id number] M at[place]or 00:00:00 00:00:00 George Hoffman Medical Medicalvin yeager MD: [address] [place] [address] , Ph. [phone] 2019-03-30 2019-03-30 Anabel [facility] [place] - [id number] M at[place]or 00:00:00 00:00:00 George Hoffman Medical Medicalvin yeager MD: [address] [place] [address] , Ph. [phone] 2019-03-27 2019-03-27 Anabel [facility] [place] - [id number] M [place] 00:00:00 00:00:00 Riccardo Lloyd Medicalvin yeager MD: [address] [place] [address] , Ph. [phone] 2019-03-09 2019-03-09 Harper Ewing [facility] [place] - [id number] [place] 00:00:00 00:00:00 Discovery alida Strange WHNP: [address] [place] [address] , Ph. [phone] 2019-03-04 2019-03-04 Luis Felipe [facility] [place] - [id number] M at[place]or 00:00:00 00:00:00 Discovery alida Hernadez MD: [address] [place] [address] , Ph. [phone] Results Test Description Test Time Test Comments Results Result Comments Source Influenza virus A and B and SARS-CoV+SARS-CoV-2 (COVID -19) 2022-01-17 16:31:00 panel - Upper respiratory specimen by Rapid immunoassay Test Item Value Reference Range Interpretation Comme nts RAPID SARS COV (test code = RAPID SARS COV) negative RAPID FLU A (test code = RAPID FLU A) negative RAPID FLU B (test code = RAPID FLU B) negative [facility] [id number] 16:06:15 Test Item Value Reference Range Interpretation Comments Test (test code = negative Test) [facility] [id number] 16:06:15 Test Item Value Reference Range Interpretation Comments Test (test code = negative Test) [facility] Reflex Culture panel - Urine 2021-10-05 07:44:00 Test Item Value Reference Range Interpretation Comments Color of Urine by Auto (test code lt. yellow = 34247-8) Appearance of Urine (test code = SL cloudy clear 5767-9) Glucose [Mass/volume] in Urine negative negative (test code = 2350-7) bilirubin, urine (test code = negative negative bilirubin, urine) ketone, urine (test code = negative negative ketone, urine) Specific gravity of Urine by 1.015 1.003-1.030 Automated test strip (test code = 55458-7) Hemoglobin [Presence] in Urine by small negative H Test strip (test code = 5794-3) pH of Urine (test code = 2756-5) 6.500 5-9 protein urine (UA) (test code = negative negative protein urine (UA)) Urobilinogen [Presence] in Urine 0.2 E.U./dL 0.2-1.0 (test code = 23215-5) Nitrite [Presence] in Urine by positive negative Test strip (test code = 5802-4) urine leukocyte esterase (test =1 negative H code = urine leukocyte esterase) Erythrocytes [Presence] in Urine =4-6 0-5 H (test code = 78495-3) WBC, urine (test code = WBC, =5-9 0-5 H urine) bacteria, urine (test code = full field none detect H bacteria, urine) Casts [#/area] in Urine sediment =2-5 none detect by Automated count (test code = 05581-6) urine culture added? (test code = yes urine culture added?) squamous epithelial cell urine =6-10 0-5 (test code = squamous epithelial cell urine) mucus, urine (test code = mucus, =1 none detect urine) [facility] W Auto Differential panel - [id number] 07:44:00 Test Item Value Reference Range Interpretation Comments white blood count (test code = 6.7 K/uL 4.0-11.5 white blood count) red blood count (test code = red 4.89 M/uL 3.80-5.20 blood count) hemoglobin (test code = 12.5 g/dL 10.5-15.7 hemoglobin) hematocrit (test code = 40.6 % 34.0-50.0 hematocrit) MCV [Entitic volume] (test code = 83.0 fL 86.0-100.0 L 62886-0) mean corpuscular hemoglobin (test 25.6 pg 26.2-33.4 [...] 44.4-80.1 leukocytes in Blood (test code = 41161-2) Immature granulocytes [#/volume] 0.01 K/uL 0.00-0.03 in Blood (test code = 64053-4) lymphocyte% (test code = 38.8 % 10.0-50.0 lymphocyte%) mono % (test code = mono %) 6.9 % 3.6-12.0 eos % (test code = eos %) 1.5 % 0.0-5.4 basophil % (test code = basophil 1.1 % 0.1-1.2 %) Band form neutrophils [#/volume] 3.43 K/uL 1.56-6.13 in Blood (test code = 17245-4) Lymphocytes [#/volume] in Specimen 2.58 K/uL 1.18-3.74 by Automated count (test code = 72455-7) mono # (test code = mono #) 0.46 K/uL 0.24-0.86 eos # (test code = eos #) 0.10 K/uL 0.04-0.36 basophil # (test code = basophil 0.07 K/uL 0.01-0.08 #) NRBC% (test code = NRBC%) 0 /100 WBC 0-0.2 NRBC# (test code = NRBC#) 0 K/uL [facility] - [facility] [...] Serum or Plasma (test code = 6768-6) [facility] - Serum or [id number] 07:44:00 Test Item Value Reference Range Interpretation Comments cholesterol level (test code = 145 mg/dL 150-200 L cholesterol level) triglycerides level (test code = 57 mg/dL <150 triglycerides level) HDL cholesterol (test code = HDL 66 mg/dL >65 cholesterol) LDL cholesterol direct (test code = 69 mg/dL <100 LDL cholesterol direct) cholesterol risk ratio (test code = 2.196 cholesterol risk ratio) [facility] CenterUrinal[facility] complete W Reflex Culture panel - Urine 2021-10-05 07:44:00 Test Item Value Reference Range Interpretation Comments Color of Urine by Auto (test code lt. yellow = 33372-6) Appearance of Urine (test code = SL cloudy clear 5767-9) Glucose [Mass/volume] in Urine negative negative (test code = 2350-7) bilirubin, urine (test code = negative negative bilirubin, urine) ketone, urine (test code = negative negative ketone, urine) Specific gravity of Urine by 1.015 1.003-1.030 Automated test strip (test code = 79995-8) Hemoglobin [Presence] in Urine by small negative H Test strip (test code = 5794-3) pH of Urine (test code = 2756-5) 6.500 5-9 protein urine (UA) (test code = negative negative protein urine (UA)) Urobilinogen [Presence] in Urine 0.2 E.U./dL 0.2-1.0 (test code = 27731-4) Nitrite [Presence] in Urine by positive negative Test strip (test code = 5802-4) urine leukocyte esterase (test =1 negative H code = urine leukocyte esterase) Erythrocytes [Presence] in Urine =4-6 0-5 H (test code = 35422-6) WBC, urine (test code = WBC, =5-9 0-5 H urine) bacteria, urine (test code = full field none detect H bacteria, urine) Casts [#/area] in Urine sediment =2-5 none detect by Automated count (test code = 71525-8) urine culture added? (test code = yes urine culture added?) squamous epithelial cell urine =6-10 0-5 (test code = squamous epithelial cell urine) mucus, urine (test code = mucus, =1 none detect urine) [facility] W Auto Differential panel - [id number] 07:44:00 Test Item Value Reference Range Interpretation Comments white blood count (test code = 6.7 K/uL 4.0-11.5 white blood count) red blood count (test code = red 4.89 M/uL 3.80-5.20 blood count) hemoglobin (test code = 12.5 g/dL 10.5-15.7 hemoglobin) hematocrit (test code = 40.6 % 34.0-50.0 hematocrit) MCV [Entitic volume] (test code = 83.0 fL 86.0-100.0 L 59263-7) mean corpuscular hemoglobin (test 25.6 pg 26.2-33.4 [...] 44.4-80.1 leukocytes in Blood (test code = 50421-9) Immature granulocytes [#/volume] 0.01 K/uL 0.00-0.03 in Blood (test code = 24441-4) lymphocyte% (test code = 38.8 % 10.0-50.0 lymphocyte%) mono % (test code = mono %) 6.9 % 3.6-12.0 eos % (test code = eos %) 1.5 % 0.0-5.4 basophil % (test code = basophil 1.1 % 0.1-1.2 %) Band form neutrophils [#/volume] 3.43 K/uL 1.56-6.13 in Blood (test code = 57127-6) Lymphocytes [#/volume] in Specimen 2.58 K/uL 1.18-3.74 by Automated count (test code = 43406-0) mono # (test code = mono #) 0.46 K/uL 0.24-0.86 eos # (test code = eos #) 0.10 K/uL 0.04-0.36 basophil # (test code = basophil 0.07 K/uL 0.01-0.08 #) NRBC% (test code = NRBC%) 0 /100 WBC 0-0.2 NRBC# (test code = NRBC#) 0 K/uL [facility]Com[facility] - Serum [...] Serum or Plasma (test code = 6768-6) [facility]Lip[facility] - Serum or [id number] 07:44:00 Test Item Value Reference Range Interpretation Comments cholesterol level (test code = 145 mg/dL 150-200 L cholesterol level) triglycerides level (test code = 57 mg/dL <150 triglycerides level) HDL cholesterol (test code = HDL 66 mg/dL >65 cholesterol) LDL cholesterol direct (test code = 69 mg/dL <100 LDL cholesterol direct) cholesterol risk ratio (test code = 2.196 cholesterol risk ratio) [facility] CenterBacteria identified in Urine by [id number] 07:44:00[facility], [id number] 07:44:00 Test Item Value Reference Range Interpretation [...] Minimum inhibitory concentration (GUSTAVO) (test code = 76533-7) cefTAZidime [Susceptibility] by <=2 Minimum inhibitory concentration (GUSTAVO) (test code = 133-9) cefTRIAXone [Susceptibility] by <=1 Minimum inhibitory concentration (GUSTAVO) (test code = 141-2) Ciprofloxacin [Susceptibility] by <=0.25 Minimum inhibitory concentration (GUSTAVO) (test code = 185-9) Ampicillin+Sulbactam =8/4 [Susceptibility] by Minimum inhibitory concentration (GUSTAVO) (test code = 32-3) Ertapenem [Susceptibility] by <=0.25 Minimum inhibitory concentration (GUSTAVO) (test code = 29311-9) Aztreonam [Susceptibility] by <=2 Minimum inhibitory concentration (GUSTAVO) (test code = 44-8) Cefepime [Susceptibility] by Minimum <=1 inhibitory concentration (GUSTAVO) (test code = 6644-9) Meropenem [Susceptibility] by <=0.5 Minimum inhibitory concentration (GUSTAVO) (test code = 6652-2) Moxifloxacin [Susceptibility] by <=1 Minimum inhibitory concentration (GUSTAVO) (test code = 21693-3) Amikacin [Susceptibility] by Minimum <=8 inhibitory concentration (GUSTAVO) (test code = 12-5) Piperacillin+Tazobactam =4/4 [Susceptibility] by Minimum inhibitory concentration (GUSTAVO) (test code = 412-7) Ceftaroline [Susceptibility] by <=0.25 Minimum inhibitory concentration (GUSTAVO) (test code = 49192-0) Tigecycline [Susceptibility] by 2 ug/mL Minimum inhibitory concentration (GUSTAVO) (test code = 24154-2) [facility] CenterErythrocyte sedimentation [id number] 00:00:00 Test Item Value Reference Range Interpretation Comments erythrocyte sedimentation rate (test 8 mm/HR 0.00-20 code = erythrocyte sedimentation rate) [facility] CenterHemoglobin A1c [Mass/volume] in [id number] 00:00:00 Test Item Value Reference Range Interpretation Comments Hemoglobin A1c [Mass/volume] in Blood 5.4 % 4.0-6.0 (test code = 89616-3) [facility] CenterThyrotropin [Units/volume] in Serum or [id number] 00:00:00 Test Item Value Reference Range Interpretation Comments Thyrotropin [Units/volume] in 0.94 uIU/mL 0.36-3.74 Serum or Plasma (test code = 3016-3) [facility] CenterThyroxine (T4) [Mass/volume] in Serum or [id number] 00:00:00 Test Item Value Reference Range Interpretation Comments T4 (test code = T4) 7.1 ug/dL 4.5-11.7 [facility] CenterErythrocyte sedimentation [id number] 00:00:00 Test Item Value Reference Range Interpretation Comments erythrocyte sedimentation rate (test 8 mm/HR 0.00-20 code = erythrocyte sedimentation rate) [facility] CenterHemoglobin A1c/Hemoglobin.total in [id number] 00:00:00 Test Item Value Reference Range Interpretation Comments Hemoglobin A1c [Mass/volume] in Blood 5.4 % 4.0-6.0 (test code = 02811-3) [facility] CenterThyrotropin [Units/volume] in Serum or [id number] 00:00:00 Test Item Value Reference Range Interpretation Comments Thyrotropin [Units/volume] in 0.94 uIU/mL 0.36-3.74 Serum or Plasma (test code = 3016-3) [facility] CenterThyroxine (T4) [Mass/volume] in Serum or [id number] 00:00:00 Test Item Value Reference Range Interpretation Comments T4 (test code = T4) 7.1 ug/dL 4.5-11.7 [facility]rapid strep group A, [id number] 17:41:17 Test Item Value Reference Range Interpretation Comments Strep Result (test code = Strep negative Result) [facility]rap[facility], [id number] 17:41:17 Test Item Value Reference Range Interpretation Comments Strep Result (test code = Strep negative Result) [facility] CenterInfluenza virus A and B and SARS-CoV+SARS-CoV-2 (COVID- 19) Ag panel - Upper respiratory specimen by Rapid [id number] 16:52:00 Test Item Value Reference Range Interpretation Comments RAPID SARS COV (test code = RAPID negative SARS COV) RAPID FLU A (test code = RAPID FLU negative A) RAPID FLU B (test code = RAPID FLU negative B) [facility] CenterInfluenza virus A and B and SARS-CoV+SARS-CoV-2 (COVID- 19) Ag panel - Upper respiratory specimen by Rapid [id number] 16:52:00 Test Item Value Reference Range Interpretation Comments RAPID SARS COV (test code = RAPID negative SARS COV) RAPID FLU A (test code = RAPID FLU negative A) RAPID FLU B (test code = RAPID FLU negative B) [facility] W Auto Differential panel - [id number] 10:41:00 Test Item Value Reference Range Interpretation Comments white blood count (test code = 8.4 K/uL 4.0-11.5 white blood count) red blood count (test code = red 5.53 M/uL 3.80-5.20 H blood count) hemoglobin (test code = 14.3 g/dL 10.5-15.7 hemoglobin) hematocrit (test code = 45.4 % 34.0-50.0 hematocrit) MCV [Entitic volume] (test code = 82.1 fL 86.0-100.0 L 32395-5) mean corpuscular hemoglobin (test 25.9 pg 26.2-33.4 [...] 44.4-80.1 leukocytes in Blood (test code = 83487-3) Immature granulocytes [#/volume] 0.02 K/uL 0.00-0.03 in Blood (test code = 23210-5) lymphocyte% (test code = 38.7 % 10.0-50.0 lymphocyte%) mono % (test code = mono %) 5.3 % 3.6-12.0 eos % (test code = eos %) 1.4 % 0.0-5.4 Basophils/100 leukocytes in 0.6 % 0.1-1.2 Specimen (test code = 23899-4) Band form neutrophils [#/volume] 4.53 K/uL 1.56-6.13 in Blood (test code = 71330-5) Lymphocytes [#/volume] in Specimen 3.27 K/uL 1.18-3.74 by Automated count (test code = 47285-9) mono # (test code = mono #) 0.45 K/uL 0.24-0.86 eos # (test code = eos #) 0.12 K/uL 0.04-0.36 basophil # (test code = basophil 0.05 K/uL 0.01-0.08 #) NRBC% (test code = NRBC%) 0 /100 WBC 0-0.2 NRBC# (test code = NRBC#) 0 K/uL [facility] CenterComprehensive [facility] 2000 panel - Serum [...] Serum or Plasma (test code = 6768-6) [facility] CenterPT/[id number] 10:41:00 Test Item Value Reference Range Interpretation Comments prothrombin time (test code = 10.0 seconds 10.3-12.3 L prothrombin time) INR in Blood by Coagulation <0.94 assay (test code = 16916-8) [facility] CenterDifferential panel, method unspecified - [id number] 00:00:00NeutrophilsBandLymphocyteAtypical LymphMonocyteEosinophilBasophilMyelocyteBlastsAbs Neutrophil Count(Man)Abs Lymph Count (Man)Abs Monocyte Count (Man)Abs Eosinophil Count (Man)Abs Basophil Count (Man)Platelet EstimatePlatelet MorphologyAnisocytosisMacrocytosisStomatocyteToxic GranulationMaMonroe Regional HospitalChoriogonadotropin ( test) [Presence] in Serum or [id number] 00:00:00 Test Item Value Reference Range Interpretation Comments Choriogonadotropin.beta subunit negative neg ( test) [Presence] in Serum or Plasma (test code = 2110-5) [facility] Centerpartial thromboplastin [id number] 00:00:00 Test Item Value Reference Range Interpretation Comments INR in Blood by Coagulation 27.6 seconds 22.5-37.0 assay (test code = 45873-1) [facility] CenterInfluenza virus A and B and SARS-CoV+SARS-CoV-2 (COVID- 19) Ag panel - Upper respiratory specimen by Rapid [id number] 14:30:06 Test Item Value Reference Range Interpretation Comments RAPID SARS COV (test code = RAPID negative SARS COV) RAPID FLU A (test code = RAPID FLU negative A) RAPID FLU B (test code = RAPID FLU negative B) [facility] GroupInfluenza virus A and B and SARS-CoV+SARS-CoV-2 (COVID- 19) Ag panel - Upper respiratory specimen by Rapid [id number] 14:30:06 Test Item Value Reference Range Interpretation Comments RAPID SARS COV (test code = RAPID negative SARS COV) RAPID FLU A (test code = RAPID FLU negative A) RAPID FLU B (test code = RAPID FLU negative B) [facility] GroupInfluenza virus A and B and SARS-CoV+SARS-CoV-2 (COVID- 19) Ag panel - Upper respiratory specimen by Rapid [id number] 14:30:06 Test Item Value Reference Range Interpretation Comments RAPID SARS COV (test code = RAPID negative SARS COV) RAPID FLU A (test code = RAPID FLU negative A) RAPID FLU B (test code = RAPID FLU negative B) [facility]rap[facility], [id number] 14:29:58 Test Item Value Reference Range Interpretation Comments Strep Result (test code = Strep positive Result) [facility], [id number] 14:29:58 Test Item Value Reference Range Interpretation Comments Strep Result (test code = Strep positive Result) [facility]rep [facility] A, [id number] 14:29:58 Test Item Value Reference Range Interpretation Comments Strep Result (test code = Strep positive Result) [facility] strep group A, [id number] 15:38:01 Test Item Value Reference Range Interpretation Comments Strep Result (test code = Strep negative Result) [facility] strep group A, [id number] 15:38:01 Test Item Value Reference Range Interpretation Comments Strep Result (test code = Strep negative Result) [facility] strep group A, [id number] 15:38:01 Test Item Value Reference Range Interpretation Comments Strep Result (test code = Strep negative Result) [facility]rap[facility], [id number] 15:38:01 Test Item Value Reference Range Interpretation Comments Strep Result (test code = Strep negative Result) [facility], [id number] 15:56:00 Test Item Value Reference Range Interpretation Comments Strep Result (test code = Strep positive Result) [facility]rap[facility], [id number] 15:56:00 Test Item Value Reference Range Interpretation Comments Strep Result (test code = Strep positive Result) [facility] CenterUrinalysis macro (dipstick) panel - [id number] 15:37:27 Test Item Value Reference Range Interpretation Comments Leukocytes (test code = Leukocytes) Trace Nitrite (test code = Nitrite) negative Urobilinogen (test code = 1 Urobilinogen) Protein (test code = Protein) Negative pH (test code = pH) 7.0 Blood (test code = Blood) Negative Specific [place] (test code = 1.020 Specific [place]) Ketone (test code = Ketone) Negative Bilirubin (test code = Bilirubin) Negative Glucose (test code = Glucose) Negative Appearance (test code = Appearance) Clear Color (test code = Color) Yellow [facility] CenterCBC W Auto Differential panel - [id number] 12:16:00 Test Item Value Reference Range Interpretation Comments white blood count (test code = 7.3 K/uL 4.0-11.5 white blood count) red blood count (test code = red 5.06 M/uL 3.80-5.20 blood count) hemoglobin (test code = 12.5 g/dL 10.5-15.7 hemoglobin) hematocrit (test code = 41.3 % 34.0-50.0 hematocrit) Erythrocyte mean corpuscular 81.6 fL 86-100 L volume [Entitic volume] (test code = 20531-0) mean corpuscular hemoglobin (test 24.7 pg 26.2-33.4 [...] 44.4-80.1 leukocytes in Blood (test code = 74729-7) Granulocytes Immature [#/volume] 0.0 K/uL 0.0-0.03 in Blood (test code = 11323-3) lymphocyte% (test code = 37.9 % 10.0-50.0 lymphocyte%) mono % (test code = mono %) 7.4 % 3.6-12.0 eos % (test code = eos %) 3.0 % 0.0-5.4 Basophils/100 leukocytes in 0.5 % 0.1-1.2 Unspecified specimen (test code = 29578-1) Neutrophils.band form [#/volume] 3.73 K/uL 1.56-6.13 in Blood (test code = 59959-5) Lymphocytes [#/volume] in 2.8 K/uL 1.18-3.74 Unspecified specimen by Automated count (test code = 83499-6) mono # (test code = mono #) 0.54 K/uL 0.24-0.86 eos # (test code = eos #) 0.22 K/uL 0.04-0.36 basophil # (test code = basophil 0.04 K/uL 0.01-0.08 #) NRBC% (test code = NRBC%) 0 /100 WBC 0-0.2 NRBC# (test code = NRBC#) 0 K/uL [facility] Centerdifferential panel, [id number] 12:16:00 NeutrophilsLymphocyteAtypical LymphMonocyteEosinophilBasophilPlatelet EstimateDifferential comment-[facility] HospitalChoriogonadotropin.beta subunit [Units/volume] in Serum or [id number] 12:16:00 Test Item Value Reference Range Interpretation Comments HCG quantitative (test code = HCG <0.1 0-5 quantitative) [facility] CenterUrinalysis macro (dipstick) panel - [id number] 11:31:00 Test Item Value Reference Range Interpretation Comments Leukocytes (test code = Leukocytes) Large Nitrite (test code = Nitrite) negative Urobilinogen (test code = .2 Urobilinogen) Protein (test code = Protein) 30 pH (test code = pH) 8.0 Blood (test code = Blood) Small Specific [place] (test code = 1.020 Specific [place]) Ketone (test code = Ketone) Negative Bilirubin (test code = Bilirubin) Negative Glucose (test code = Glucose) Negative Appearance (test code = Appearance) Clear Color (test code = Color) [facility]stick[facility] - [id number] 11:31:00 Test Item Value Reference Range Interpretation Comments Leukocytes (test code = Leukocytes) Large Nitrite (test code = Nitrite) negative Urobilinogen (test code = .2 Urobilinogen) Protein (test code = Protein) 30 pH (test code = pH) 8.0 Blood (test code = Blood) Small Specific [place] (test code = 1.020 Specific [place]) Ketone (test code = Ketone) Negative Bilirubin (test code = Bilirubin) Negative Glucose (test code = Glucose) Negative Appearance (test code = Appearance) Clear Color (test code = Color) [facility]port[facility] macro (dipstick) panel - [id number] 11:31:00 Test Item Value Reference Range Interpretation Comments Leukocytes (test code = Leukocytes) Large Nitrite (test code = Nitrite) negative Urobilinogen (test code = .2 Urobilinogen) Protein (test code = Protein) 30 pH (test code = pH) 8.0 Blood (test code = Blood) Small Specific [place] (test code = 1.020 Specific [place]) Ketone (test code = Ketone) Negative Bilirubin (test code = Bilirubin) Negative Glucose (test code = Glucose) Negative Appearance (test code = Appearance) Clear Color (test code = Color) [facility] W Auto Differential panel - [id number] 05:43:00 Test Item Value Reference Range Interpretation [...] L volume [Entitic volume] (test code = 71926-1) mean corpuscular hemoglobin (test 25.3 pg 26.2-33.4 [...] 44.4-80.1 leukocytes in Blood (test code = 91240-6) Granulocytes Immature [#/volume] 0.1 K/uL 0.0-0.03 H in Blood (test code = 60800-6) lymphocyte% (test code = 26.4 % 10.0-50.0 lymphocyte%) mono % (test code = mono %) 6.4 % 3.6-12.0 eos % (test code = eos %) 0.7 % 0.0-5.4 Basophils/100 leukocytes in 0.2 % 0.1-1.2 Unspecified specimen (test code = 47202-5) Neutrophils.band form [#/volume] 8.32 K/uL 1.56-6.13 H in Blood (test code = 92946-7) Lymphocytes [#/volume] in 3.3 K/uL 1.18-3.74 Unspecified specimen by Automated count (test code = 15404-3) mono # (test code = mono #) 0.81 K/uL 0.24-0.86 eos # (test code = eos #) 0.09 K/uL 0.04-0.36 basophil # (test code = basophil 0.03 K/uL 0.01-0.08 #) NRBC% (test code = NRBC%) 0 /100 WBC 0-0.2 NRBC# (test code = NRBC#) 0 K/uL [facility] W Auto Differential panel - [id number] 05:43:00 Test Item Value Reference Range Interpretation [...] L volume [Entitic volume] (test code = 63175-5) mean corpuscular hemoglobin (test 25.3 pg 26.2-33.4 [...] 44.4-80.1 leukocytes in Blood (test code = 30396-2) Granulocytes Immature [#/volume] 0.1 K/uL 0.0-0.03 H in Blood (test code = 74400-9) lymphocyte% (test code = 26.4 % 10.0-50.0 lymphocyte%) mono % (test code = mono %) 6.4 % 3.6-12.0 eos % (test code = eos %) 0.7 % 0.0-5.4 Basophils/100 leukocytes in 0.2 % 0.1-1.2 Unspecified specimen (test code = 43826-7) Neutrophils.band form [#/volume] 8.32 K/uL 1.56-6.13 H in Blood (test code = 37101-1) Lymphocytes [#/volume] in 3.3 K/uL 1.18-3.74 Unspecified specimen by Automated count (test code = 04815-3) mono # (test code = mono #) 0.81 K/uL 0.24-0.86 eos # (test code = eos #) 0.09 K/uL 0.04-0.36 basophil # (test code = basophil 0.03 K/uL 0.01-0.08 #) NRBC% (test code = NRBC%) 0 /100 WBC 0-0.2 NRBC# (test code = NRBC#) 0 K/uL [facility] W Auto Differential panel - [id number] 04:53:00 Test Item Value Reference Range Interpretation Comments white blood count (test code = 9.5 K/uL 4.0-11.5 white blood count) red blood count (test code = red 3.83 M/uL 3.80-5.20 blood count) hemoglobin (test code = 9.7 g/dL 10.5-15.7 L hemoglobin) hematocrit (test code = 31.4 % 34.0-50.0 L hematocrit) Erythrocyte mean corpuscular 82.0 fL 86-100 L volume [Entitic volume] (test code = 22328-3) mean corpuscular hemoglobin (test 25.3 pg 26.2-33.4 [...] 44.4-80.1 leukocytes in Blood (test code = 62194-7) Granulocytes Immature [#/volume] 0.1 K/uL 0.0-0.03 H in Blood (test code = 53757-5) lymphocyte% (test code = 30.9 % 10.0-50.0 lymphocyte%) mono % (test code = mono %) 7.2 % 3.6-12.0 eos % (test code = eos %) 0.3 % 0.0-5.4 Basophils/100 leukocytes in 0.2 % 0.1-1.2 Unspecified specimen (test code = 77046-9) Neutrophils.band form [#/volume] 5.77 K/uL 1.56-6.13 in Blood (test code = 94701-3) Lymphocytes [#/volume] in 2.9 K/uL 1.18-3.74 Unspecified specimen by Automated count (test code = 78033-6) mono # (test code = mono #) 0.68 K/uL 0.24-0.86 eos # (test code = eos #) 0.03 K/uL 0.04-0.36 L basophil # (test code = basophil 0.02 K/uL 0.01-0.08 #) NRBC% (test code = NRBC%) 0 /100 WBC 0-0.2 NRBC# (test code = NRBC#) 0 K/uL [facility] CenterReagin Ab [Presence] in Serum by [id number] 04:53:00 Test Item Value Reference Range Interpretation Comments Reagin Ab [Presence] in Serum by nonreactive nonreactive RPR (test code = 86619-6) [facility] CenterHepatitis B virus surface Ag [Presence] in Serum 2019-04-30 04:53:00 Test Item Value Reference Range Interpretation Comments .hepatitis B surface antigen (test negative negative code = .hepatitis B surface antigen) [facility] W Auto Differential panel - [id number] 04:53:00 Test Item Value Reference Range Interpretation Comments white blood count (test code = 9.5 K/uL 4.0-11.5 white blood count) red blood count (test code = red 3.83 M/uL 3.80-5.20 blood count) hemoglobin (test code = 9.7 g/dL 10.5-15.7 L hemoglobin) hematocrit (test code = 31.4 % 34.0-50.0 L hematocrit) Erythrocyte mean corpuscular 82.0 fL 86-100 L volume [Entitic volume] (test code = 47578-9) mean corpuscular hemoglobin (test 25.3 pg 26.2-33.4 [...] 44.4-80.1 leukocytes in Blood (test code = 62939-4) Granulocytes Immature [#/volume] 0.1 K/uL 0.0-0.03 H in Blood (test code = 45616-4) lymphocyte% (test code = 30.9 % 10.0-50.0 lymphocyte%) mono % (test code = mono %) 7.2 % 3.6-12.0 eos % (test code = eos %) 0.3 % 0.0-5.4 Basophils/100 leukocytes in 0.2 % 0.1-1.2 Unspecified specimen (test code = 09295-3) Neutrophils.band form [#/volume] 5.77 K/uL 1.56-6.13 in Blood (test code = 13905-4) Lymphocytes [#/volume] in 2.9 K/uL 1.18-3.74 Unspecified specimen by Automated count (test code = 21881-5) mono # (test code = mono #) 0.68 K/uL 0.24-0.86 eos # (test code = eos #) 0.03 K/uL 0.04-0.36 L basophil # (test code = basophil 0.02 K/uL 0.01-0.08 #) NRBC% (test code = NRBC%) 0 /100 WBC 0-0.2 NRBC# (test code = NRBC#) 0 K/uL [facility] CenterReagin Ab [Presence] in Serum by [id number] 04:53:00 Test Item Value Reference Range Interpretation Comments Reagin Ab [Presence] in Serum by nonreactive nonreactive RPR (test code = 04310-9) [facility] CenterHepatitis B virus surface Ag [Presence] in Serum 2019-04-30 04:53:00 Test Item Value Reference Range Interpretation Comments .hepatitis B surface antigen (test negative negative code = .hepatitis B surface antigen) [facility] - [id number] 10:17:40 Test Item Value Reference Range Interpretation Comments Leukocytes (test code = Leukocytes) Trace Nitrite (test code = Nitrite) negative Urobilinogen (test code = .2 Urobilinogen) Protein (test code = Protein) Trace pH (test code = pH) 6.5 Blood (test code = Blood) Negative Specific [place] (test code = 1.015 Specific [place]) Ketone (test code = Ketone) Negative Bilirubin (test code = Bilirubin) Negative Glucose (test code = Glucose) Negative Appearance (test code = Appearance) Clear Color (test code = Color) Yellow [facility] - [id number] 10:17:40 Test Item Value Reference Range Interpretation Comments Leukocytes (test code = Leukocytes) Trace Nitrite (test code = Nitrite) negative Urobilinogen (test code = .2 Urobilinogen) Protein (test code = Protein) Trace pH (test code = pH) 6.5 Blood (test code = Blood) Negative Specific [place] (test code = 1.015 Specific [place]) Ketone (test code = Ketone) Negative Bilirubin (test code = Bilirubin) Negative Glucose (test code = Glucose) Negative Appearance (test code = Appearance) Clear Color (test code = Color) Yellow [facility] - [id number] 10:17:40 Test Item Value Reference Range Interpretation Comments Leukocytes (test code = Leukocytes) Trace Nitrite (test code = Nitrite) negative Urobilinogen (test code = .2 Urobilinogen) Protein (test code = Protein) Trace pH (test code = pH) 6.5 Blood (test code = Blood) Negative Specific [place] (test code = 1.015 Specific [place]) Ketone (test code = Ketone) Negative Bilirubin (test code = Bilirubin) Negative Glucose (test code = Glucose) Negative Appearance (test code = Appearance) Clear Color (test code = Color) Yellow [facility] Biophysical profile panel [id number] 10:06:43 Test Item Value Reference Range Interpretation Comments Amniotic Fluid Index (test code = 2 (14.5) Amniotic Fluid Index) Tone (test code = Tone) 2 Breathing (test code = 2 Breathing) Movement (test code = 2 Movement) Non-Stress Test (test code = 2 Non-Stress Test) [facility] Biophysical profile panel [id number] 10:06:43 Test Item Value Reference Range Interpretation Comments Amniotic Fluid Index (test code = 2 (14.5) Amniotic Fluid Index) Tone (test code = Tone) 2 Breathing (test code = 2 Breathing) Movement (test code = 2 Movement) Non-Stress Test (test code = 2 Non-Stress Test) [facility] [id number] 10:06:43 Test Item Value Reference Range Interpretation Comments Amniotic Fluid Index (test code = 2 (14.5) Amniotic Fluid Index) Tone (test code = Tone) 2 Breathing (test code = 2 Breathing) Movement (test code = 2 Movement) Non-Stress Test (test code = 2 Non-Stress Test) [facility] - [id number] 11:37:00 Test Item Value Reference Range Interpretation Comments Leukocytes (test code = Leukocytes) Large Nitrite (test code = Nitrite) negative Urobilinogen (test code = 1 Urobilinogen) Protein (test code = Protein) Trace pH (test code = pH) 8.5 Blood (test code = Blood) Negative Specific [place] (test code = 1.020 Specific [place]) Ketone (test code = Ketone) Negative Bilirubin (test code = Bilirubin) Negative Glucose (test code = Glucose) Negative Appearance (test code = Appearance) Clear Color (test code = Color) Yellow [facility]dipstick[facility] panel - [id number] 11:37:00 Test Item Value Reference Range Interpretation Comments Leukocytes (test code = Leukocytes) Large Nitrite (test code = Nitrite) negative Urobilinogen (test code = 1 Urobilinogen) Protein (test code = Protein) Trace pH (test code = pH) 8.5 Blood (test code = Blood) Negative Specific [place] (test code = 1.020 Specific [place]) Ketone (test code = Ketone) Negative Bilirubin (test code = Bilirubin) Negative Glucose (test code = Glucose) Negative Appearance (test code = Appearance) Clear Color (test code = Color) Yellow [facility]dipstick[facility] panel - [id number] 11:37:00 Test Item Value Reference Range Interpretation Comments Leukocytes (test code = Leukocytes) Large Nitrite (test code = Nitrite) negative Urobilinogen (test code = 1 Urobilinogen) Protein (test code = Protein) Trace pH (test code = pH) 8.5 Blood (test code = Blood) Negative Specific [place] (test code = 1.020 Specific [place]) Ketone (test code = Ketone) Negative Bilirubin (test code = Bilirubin) Negative Glucose (test code = Glucose) Negative Appearance (test code = Appearance) Clear Color (test code = Color) Yellow [facility]dipstick[facility] panel - [id number] 11:37:00 Test Item Value Reference Range Interpretation Comments Leukocytes (test code = Leukocytes) Large Nitrite (test code = Nitrite) negative Urobilinogen (test code = 1 Urobilinogen) Protein (test code = Protein) Trace pH (test code = pH) 8.5 Blood (test code = Blood) Negative Specific [place] (test code = 1.020 Specific [place]) Ketone (test code = Ketone) Negative Bilirubin (test code = Bilirubin) Negative Glucose (test code = Glucose) Negative Appearance (test code = Appearance) Clear Color (test code = Color) Yellow [facility]dipstick[facility] panel - [id number] 11:37:00 Test Item Value Reference Range Interpretation Comments Leukocytes (test code = Leukocytes) Large Nitrite (test code = Nitrite) negative Urobilinogen (test code = 1 Urobilinogen) Protein (test code = Protein) Trace pH (test code = pH) 8.5 Blood (test code = Blood) Negative Specific [place] (test code = 1.020 Specific [place]) Ketone (test code = Ketone) Negative Bilirubin (test code = Bilirubin) Negative Glucose (test code = Glucose) Negative Appearance (test code = Appearance) Clear Color (test code = Color) Yellow [facility] Biophysical profile panel [id number] 11:06:57 Test Item Value Reference Range Interpretation Comments Amniotic Fluid Index (test code = 2 (14.6) Amniotic Fluid Index) Tone (test code = Tone) 2 Breathing (test code = 2 Breathing) Movement (test code = 2 Movement) Non-Stress Test (test code = 2 Non-Stress Test) [facility] Biophysical profile panel [id number] 11:06:57 Test Item Value Reference Range Interpretation Comments Amniotic Fluid Index (test code = 2 (14.6) Amniotic Fluid Index) Tone (test code = Tone) 2 Breathing (test code = 2 Breathing) Movement (test code = 2 Movement) Non-Stress Test (test code = 2 Non-Stress Test) [facility] Biophysical profile panel [id number] 11:06:57 Test Item Value Reference Range Interpretation Comments Amniotic Fluid Index (test code = 2 (14.6) Amniotic Fluid Index) Tone (test code = Tone) 2 Breathing (test code = 2 Breathing) Movement (test code = 2 Movement) Non-Stress Test (test code = 2 Non-Stress Test) [facility] Biophysical profile panel [id number] 11:06:57 Test Item Value Reference Range Interpretation Comments Amniotic Fluid Index (test code = 2 (14.6) Amniotic Fluid Index) Tone (test code = Tone) 2 Breathing (test code = 2 Breathing) Movement (test code = 2 Movement) Non-Stress Test (test code = 2 Non-Stress Test) [facility] Biophysical profile panel [id number] 11:06:57 Test Item Value Reference Range Interpretation Comments Amniotic Fluid Index (test code = 2 (14.6) Amniotic Fluid Index) Tone (test code = Tone) 2 Breathing (test code = 2 Breathing) Movement (test code = 2 Movement) Non-Stress Test (test code = 2 Non-Stress Test) [facility]dipstick) [facility] - [id number] 15:44:30 Test Item Value Reference Range Interpretation Comments Leukocytes (test code = Small Leukocytes) Nitrite (test code = Nitrite) negative Urobilinogen (test code = 2 Urobilinogen) Protein (test code = Protein) 30 pH (test code = pH) 8.0 Blood (test code = Blood) Negative Specific [place] (test code = 1.020 Specific [place]) Ketone (test code = Ketone) Negative Bilirubin (test code = Bilirubin) Small Glucose (test code = Glucose) Negative Appearance (test code = Clear Appearance) Color (test code = Color) Dark Yellow [facility]dipstick) panel - [id number] 15:44:30 Test Item Value Reference Range Interpretation Comments Leukocytes (test code = Small Leukocytes) Nitrite (test code = Nitrite) negative Urobilinogen (test code = 2 Urobilinogen) Protein (test code = Protein) 30 pH (test code = pH) 8.0 Blood (test code = Blood) Negative Specific [place] (test code = 1.020 Specific [place]) Ketone (test code = Ketone) Negative Bilirubin (test code = Bilirubin) Small Glucose (test code = Glucose) Negative Appearance (test code = Clear Appearance) Color (test code = Color) Dark Yellow [facility] (dipstick) panel - [id number] 15:44:30 Test Item Value Reference Range Interpretation Comments Leukocytes (test code = Small Leukocytes) Nitrite (test code = Nitrite) negative Urobilinogen (test code = 2 Urobilinogen) Protein (test code = Protein) 30 pH (test code = pH) 8.0 Blood (test code = Blood) Negative Specific [place] (test code = 1.020 Specific [place]) Ketone (test code = Ketone) Negative Bilirubin (test code = Bilirubin) Small Glucose (test code = Glucose) Negative Appearance (test code = Clear Appearance) Color (test code = Color) Dark Yellow [facility] (dipstick) panel - [id number] 15:44:30 Test Item Value Reference Range Interpretation Comments Leukocytes (test code = Small Leukocytes) Nitrite (test code = Nitrite) negative Urobilinogen (test code = 2 Urobilinogen) Protein (test code = Protein) 30 pH (test code = pH) 8.0 Blood (test code = Blood) Negative Specific [place] (test code = 1.020 Specific [place]) Ketone (test code = Ketone) Negative Bilirubin (test code = Bilirubin) Small Glucose (test code = Glucose) Negative Appearance (test code = Clear Appearance) Color (test code = Color) Dark Yellow [facility] (dipstick) panel - [id number] 15:44:30 Test Item Value Reference Range Interpretation Comments Leukocytes (test code = Small Leukocytes) Nitrite (test code = Nitrite) negative Urobilinogen (test code = 2 Urobilinogen) Protein (test code = Protein) 30 pH (test code = pH) 8.0 Blood (test code = Blood) Negative Specific [place] (test code = 1.020 Specific [place]) Ketone (test code = Ketone) Negative Bilirubin (test code = Bilirubin) Small Glucose (test code = Glucose) Negative Appearance (test code = Clear Appearance) Color (test code = Color) Dark Yellow [facility] (dipstick) panel - [id number] 15:44:30 Test Item Value Reference Range Interpretation Comments Leukocytes (test code = Small Leukocytes) Nitrite (test code = Nitrite) negative Urobilinogen (test code = 2 Urobilinogen) Protein (test code = Protein) 30 pH (test code = pH) 8.0 Blood (test code = Blood) Negative Specific [place] (test code = 1.020 Specific [place]) Ketone (test code = Ketone) Negative Bilirubin (test code = Bilirubin) Small Glucose (test code = Glucose) Negative Appearance (test code = Clear Appearance) Color (test code = Color) Dark Yellow [facility] Biophysical profile panel [id number] 15:38:02 Test Item Value Reference Range Interpretation Comments Amniotic Fluid Index (test code = 2 (15.5) Amniotic Fluid Index) Tone (test code = Tone) 2 Breathing (test code = 2 Breathing) Movement (test code = 2 Movement) Non-Stress Test (test code = 2 Non-Stress Test) [facility] Biophysical profile panel [id number] 15:38:02 Test Item Value Reference Range Interpretation Comments Amniotic Fluid Index (test code = 2 (15.5) Amniotic Fluid Index) Tone (test code = Tone) 2 Breathing (test code = 2 Breathing) Movement (test code = 2 Movement) Non-Stress Test (test code = 2 Non-Stress Test) [facility] Biophysical profile panel [id number] 15:38:02 Test Item Value Reference Range Interpretation Comments Amniotic Fluid Index (test code = 2 (15.5) Amniotic Fluid Index) Tone (test code = Tone) 2 Breathing (test code = 2 Breathing) Movement (test code = 2 Movement) Non-Stress Test (test code = 2 Non-Stress Test) [facility] Biophysical profile panel [id number] 15:38:02 Test Item Value Reference Range Interpretation Comments Amniotic Fluid Index (test code = 2 (15.5) Amniotic Fluid Index) Tone (test code = Tone) 2 Breathing (test code = 2 Breathing) Movement (test code = 2 Movement) Non-Stress Test (test code = 2 Non-Stress Test) [facility] Biophysical profile panel [id number] 15:38:02 Test Item Value Reference Range Interpretation Comments Amniotic Fluid Index (test code = 2 (15.5) Amniotic Fluid Index) Tone (test code = Tone) 2 Breathing (test code = 2 Breathing) Movement (test code = 2 Movement) Non-Stress Test (test code = 2 Non-Stress Test) [facility] Biophysical profile panel [id number] 15:38:02 Test Item Value Reference Range Interpretation Comments Amniotic Fluid Index (test code = 2 (15.5) Amniotic Fluid Index) Tone (test code = Tone) 2 Breathing (test code = 2 Breathing) Movement (test code = 2 Movement) Non-Stress Test (test code = 2 Non-Stress Test) [facility] Biophysical profile panel [id number] 09:23:00 Test Item Value Reference Range Interpretation Comments Amniotic Fluid Index (test code = 2 (15.4) Amniotic Fluid Index) Tone (test code = Tone) 2 Breathing (test code = 2 Breathing) Movement (test code = 2 Movement) [facility] Biophysical profile panel [id number] 09:23:00 Test Item Value Reference Range Interpretation Comments Amniotic Fluid Index (test code = 2 (15.4) Amniotic Fluid Index) Tone (test code = Tone) 2 Breathing (test code = 2 Breathing) Movement (test code = 2 Movement) [facility] Biophysical profile panel [id number] 09:23:00 Test Item Value Reference Range Interpretation Comments Amniotic Fluid Index (test code = 2 (15.4) Amniotic Fluid Index) Tone (test code = Tone) 2 Breathing (test code = 2 Breathing) Movement (test code = 2 Movement) [facility] Biophysical profile panel [id number] 09:23:00 Test Item Value Reference Range Interpretation Comments Amniotic Fluid Index (test code = 2 (15.4) Amniotic Fluid Index) Tone (test code = Tone) 2 Breathing (test code = 2 Breathing) Movement (test code = 2 Movement) [facility] Biophysical profile panel [id number] 11:41:00 Test Item Value Reference Range Interpretation Comments Amniotic Fluid Index (test code = 2 (13.3) Amniotic Fluid Index) Tone (test code = Tone) 2 Breathing (test code = 2 Breathing) Movement (test code = 2 Movement) [facility] Biophysical profile panel [id number] 11:41:00 Test Item Value Reference Range Interpretation Comments Amniotic Fluid Index (test code = 2 (13.3) Amniotic Fluid Index) Tone (test code = Tone) 2 Breathing (test code = 2 Breathing) Movement (test code = 2 Movement) [facility] Biophysical profile panel [id number] 11:41:00 Test Item Value Reference Range Interpretation Comments Amniotic Fluid Index (test code = 2 (13.3) Amniotic Fluid Index) Tone (test code = Tone) 2 Breathing (test code = 2 Breathing) Movement (test code = 2 Movement) [facility] Biophysical profile panel [id number] 11:41:00 Test Item Value Reference Range Interpretation Comments Amniotic Fluid Index (test code = 2 (13.3) Amniotic Fluid Index) Tone (test code = Tone) 2 Breathing (test code = 2 Breathing) Movement (test code = 2 Movement) [facility] Biophysical profile panel [id number] 11:59:00 Test Item Value Reference Range Interpretation Comments Amniotic Fluid Index (test code = 2 (12.2) Amniotic Fluid Index) Tone (test code = Tone) 2 Breathing (test code = 2 Breathing) Movement (test code = 2 Movement) [facility] Biophysical profile panel [id number] 11:59:00 Test Item Value Reference Range Interpretation Comments Amniotic Fluid Index (test code = 2 (12.2) Amniotic Fluid Index) Tone (test code = Tone) 2 Breathing (test code = 2 Breathing) Movement (test code = 2 Movement) [facility] Biophysical profile panel [id number] 11:59:00 Test Item Value Reference Range Interpretation Comments Amniotic Fluid Index (test code = 2 (12.2) Amniotic Fluid Index) Tone (test code = Tone) 2 Breathing (test code = 2 Breathing) Movement (test code = 2 Movement) [facility] Biophysical profile panel [id number] 11:59:00 Test Item Value Reference Range Interpretation Comments Amniotic Fluid Index (test code = 2 (12.2) Amniotic Fluid Index) Tone (test code = Tone) 2 Breathing (test code = 2 Breathing) Movement (test code = 2 Movement) [facility] Biophysical profile panel [id number] 11:59:00 Test Item Value Reference Range Interpretation Comments Amniotic Fluid Index (test code = 2 (12.2) Amniotic Fluid Index) Tone (test code = Tone) 2 Breathing (test code = 2 Breathing) Movement (test code = 2 Movement) [facility] identified [facility] Urine by [id number] 10:18:00 Test Item Value Reference Range Interpretation Comments Bacteria identified in no growth after 2 Urine by Culture (test days code = 630-4) [facility] identified in Urine by [id number] 10:18:00 Test Item Value Reference Range Interpretation Comments Bacteria identified in no growth after 2 Urine by Culture (test days code = 630-4) [facility] identified in Urine by [id number] 10:18:00 Test Item Value Reference Range Interpretation Comments Bacteria identified in no growth after 2 Urine by Culture (test days code = 630-4) [facility] GroupB[facility] identified in Urine by [id number] 10:18:00 Test Item Value Reference Range Interpretation Comments Bacteria identified in no growth after 2 Urine by Culture (test days code = 630-4) [facility] GroupGlucose [Mass/volume] in Serum or Plasma --1 hour post dose [id number] 12:27:00 Test Item Value Reference Range Interpretation Comments Results (test code = Results) 152-Fail [facility] GroupGlucose [Mass/volume] in Serum or Plasma --1 hour post dose [id number] 12:27:00 Test Item Value Reference Range Interpretation Comments Results (test code = Results) 152-Fail [facility] GroupGlucose [Mass/volume] in Serum or Plasma --1 hour post dose [id number] 12:27:00 Test Item Value Reference Range Interpretation Comments Results (test code = Results) 152-Fail [facility] GroupGlucose [Mass/volume] in Serum or Plasma --1 hour post dose [id number] 12:27:00 Test Item Value Reference Range Interpretation Comments Results (test code = Results) 152-Fail [facility] GroupGlucose [Mass/volume] in Serum or Plasma --1 hour post dose [id number] 12:27:00 Test Item Value Reference Range Interpretation Comments Results (test code = Results) 152-Fail [facility] Differential panel - [id number] 11:08:00 Test Item Value Reference Range Interpretation Comments white blood count (test code = 14.1 K/uL 4.0-11.5 H white blood count) red blood count (test code = red 4.04 M/uL 3.80-5.20 blood count) hemoglobin (test code = 11.1 g/dL 10.5-15.7 hemoglobin) hematocrit (test code = 35.1 % 34.0-50.0 hematocrit) Erythrocyte mean corpuscular 86.9 fL 86-100 volume [Entitic volume] (test code = 21591-5) mean corpuscular hemoglobin (test 27.5 pg 26.2-33.4 [...] H leukocytes in Blood (test code = 56356-8) Granulocytes Immature [#/volume] 0.1 K/uL 0.0-0.03 H in Blood (test code = 27061-0) lymphocyte% (test code = 10.7 % 10.0-50.0 lymphocyte%) mono % (test code = mono %) 4.0 % 3.6-12.0 eos % (test code = eos %) 0.1 % 0.0-5.4 Basophils/100 leukocytes in 0.1 % 0.1-1.2 Unspecified specimen (test code = 52099-2) Neutrophils.band form [#/volume] 11.91 K/uL 1.56-6.13 H in Blood (test code = 12025-4) Lymphocytes [#/volume] in 1.5 K/uL 1.18-3.74 Unspecified specimen by Automated count (test code = 52739-0) mono # (test code = mono #) 0.56 K/uL 0.24-0.86 eos # (test code = eos #) 0.01 K/uL 0.04-0.36 L basophil # (test code = basophil 0.02 K/uL 0.01-0.08 #) NRBC% (test code = NRBC%) 0 /100 WBC 0-0.2 NRBC# (test code = NRBC#) 0 K/uL [facility], [id number] 11:08:00 NeutrophilsBandLymphocyteMonocytePlatelet EstimateMataPer[facility] HospitalBlood group antibody screen [Presence] in Serum or [id number] 11:08:00 Test Item Value Reference Range Interpretation Comments Blood group antibody screen negative [Presence] in Serum or Plasma (test code = 890-4) [facility]CB [facility] Auto Differential panel - [id number] 11:08:00 Test Item Value Reference Range Interpretation Comments white blood count (test code = 14.1 K/uL 4.0-11.5 H white blood count) red blood count (test code = red 4.04 M/uL 3.80-5.20 blood count) hemoglobin (test code = 11.1 g/dL 10.5-15.7 hemoglobin) hematocrit (test code = 35.1 % 34.0-50.0 hematocrit) Erythrocyte mean corpuscular 86.9 fL 86-100 volume [Entitic volume] (test code = 30712-3) mean corpuscular hemoglobin (test 27.5 pg 26.2-33.4 [...] H leukocytes in Blood (test code = 53524-8) Granulocytes Immature [#/volume] 0.1 K/uL 0.0-0.03 H in Blood (test code = 50213-4) lymphocyte% (test code = 10.7 % 10.0-50.0 lymphocyte%) mono % (test code = mono %) 4.0 % 3.6-12.0 eos % (test code = eos %) 0.1 % 0.0-5.4 Basophils/100 leukocytes in 0.1 % 0.1-1.2 Unspecified specimen (test code = 68027-3) Neutrophils.band form [#/volume] 11.91 K/uL 1.56-6.13 H in Blood (test code = 10587-9) Lymphocytes [#/volume] in 1.5 K/uL 1.18-3.74 Unspecified specimen by Automated count (test code = 32956-6) mono # (test code = mono #) 0.56 K/uL 0.24-0.86 eos # (test code = eos #) 0.01 K/uL 0.04-0.36 L basophil # (test code = basophil 0.02 K/uL 0.01-0.08 #) NRBC% (test code = NRBC%) 0 /100 WBC 0-0.2 NRBC# (test code = NRBC#) 0 K/uL [facility]different[facility] panel, [id number] 11:08:00 NeutrophilsBandLymphocyteMonocytePlatelet EstimateMatagoBryce Hospital GroupBlood group antibody screen [Presence] in Serum or [id number] 11:08:00 Test Item Value Reference Range Interpretation Comments Blood group antibody screen negative [Presence] in Serum or Plasma (test code = 890-4) [facility]HIV [facility] Ab [Presence] in [id number] 11:08:00HIV P24 AgHIV-1/2 AbB[facility] CenterReagin Ab [Presence] in Serum by RPR 2019-03-09 11:08:00 Test Item Value Reference Range Interpretation Comments Reagin Ab [Presence] in Serum by nonreactive nonreactive RPR (test code = 51734-0) [facility] W Auto Differential panel - [id number] 11:08:00 Test Item Value Reference Range Interpretation Comments white blood count (test code = 14.1 K/uL 4.0-11.5 H white blood count) red blood count (test code = red 4.04 M/uL 3.80-5.20 blood count) hemoglobin (test code = 11.1 g/dL 10.5-15.7 hemoglobin) hematocrit (test code = 35.1 % 34.0-50.0 hematocrit) Erythrocyte mean corpuscular 86.9 fL 86-100 volume [Entitic volume] (test code = 25133-4) mean corpuscular hemoglobin (test 27.5 pg 26.2-33.4 [...] H leukocytes in Blood (test code = 71908-5) Granulocytes Immature [#/volume] 0.1 K/uL 0.0-0.03 H in Blood (test code = 47858-5) lymphocyte% (test code = 10.7 % 10.0-50.0 lymphocyte%) mono % (test code = mono %) 4.0 % 3.6-12.0 eos % (test code = eos %) 0.1 % 0.0-5.4 Basophils/100 leukocytes in 0.1 % 0.1-1.2 Unspecified specimen (test code = 03924-3) Neutrophils.band form [#/volume] 11.91 K/uL 1.56-6.13 H in Blood (test code = 62984-8) Lymphocytes [#/volume] in 1.5 K/uL 1.18-3.74 Unspecified specimen by Automated count (test code = 95494-5) mono # (test code = mono #) 0.56 K/uL 0.24-0.86 eos # (test code = eos #) 0.01 K/uL 0.04-0.36 L basophil # (test code = basophil 0.02 K/uL 0.01-0.08 #) NRBC% (test code = NRBC%) 0 /100 WBC 0-0.2 NRBC# (test code = NRBC#) 0 K/uL [facility], [id number] 11:08:00 NeutrophilsBandLymphocyteMonocytePlatelet EstimateB[facility]ivar [facility] CenterBlood group antibody screen [Presence] in Serum or [id number] 11:08:00 Test Item Value Reference Range Interpretation Comments Blood group antibody screen negative [Presence] in Serum or Plasma (test code = 890-4) [facility]HIV [facility]2 Ab [Presence] in [id number] 11:08:00HIV P24 AgHIV-1/2 [facility]MaMon[facility] HospitalReagin Ab [Presence] in Serum by RPR 2019-03-09 11:08:00 Test Item Value Reference Range Interpretation Comments Reagin Ab [Presence] in Serum by nonreactive nonreactive RPR (test code = 03731-4) [facility] CenterCB W Auto Differential panel - [id number] 11:08:00 Test Item Value Reference Range Interpretation Comments white blood count (test code = 14.1 K/uL 4.0-11.5 H white blood count) red blood count (test code = red 4.04 M/uL 3.80-5.20 blood count) hemoglobin (test code = 11.1 g/dL 10.5-15.7 hemoglobin) hematocrit (test code = 35.1 % 34.0-50.0 hematocrit) Erythrocyte mean corpuscular 86.9 fL 86-100 volume [Entitic volume] (test code = 82982-7) mean corpuscular hemoglobin (test 27.5 pg 26.2-33.4 [...] H leukocytes in Blood (test code = 15662-2) Granulocytes Immature [#/volume] 0.1 K/uL 0.0-0.03 H in Blood (test code = 67740-7) lymphocyte% (test code = 10.7 % 10.0-50.0 lymphocyte%) mono % (test code = mono %) 4.0 % 3.6-12.0 eos % (test code = eos %) 0.1 % 0.0-5.4 Basophils/100 leukocytes in 0.1 % 0.1-1.2 Unspecified specimen (test code = 96137-9) Neutrophils.band form [#/volume] 11.91 K/uL 1.56-6.13 H in Blood (test code = 96773-4) Lymphocytes [#/volume] in 1.5 K/uL 1.18-3.74 Unspecified specimen by Automated count (test code = 26406-3) mono # (test code = mono #) 0.56 K/uL 0.24-0.86 eos # (test code = eos #) 0.01 K/uL 0.04-0.36 L basophil # (test code = basophil 0.02 K/uL 0.01-0.08 #) NRBC% (test code = NRBC%) 0 /100 WBC 0-0.2 NRBC# (test code = NRBC#) 0 K/uL [facility]different[facility], [id number] 11:08:00 NeutrophilsBandLymphocyteMonocytePlatelet EstimateBolivar Medical CenterBlood group antibody screen [Presence] in Serum or [id number] 11:08:00 Test Item Value Reference Range Interpretation Comments Blood group antibody screen negative [Presence] in Serum or Plasma (test code = 890-4) [facility]HIV 1[facility]2 Ab [Presence] in [id number] 11:08:00HIV P24 AgHIV-1/2 AbBolivar Medical CenterReagin Ab [Presence] in Serum by RPR 2019-03-09 11:08:00 Test Item Value Reference Range Interpretation Comments Reagin Ab [Presence] in Serum by nonreactive nonreactive RPR (test code = 77852-1) [facility] CenterCB W Auto Differential panel - [id number] 11:08:00 Test Item Value Reference Range Interpretation Comments white blood count (test code = 14.1 K/uL 4.0-11.5 H white blood count) red blood count (test code = red 4.04 M/uL 3.80-5.20 blood count) hemoglobin (test code = 11.1 g/dL 10.5-15.7 hemoglobin) hematocrit (test code = 35.1 % 34.0-50.0 hematocrit) Erythrocyte mean corpuscular 86.9 fL 86-100 volume [Entitic volume] (test code = 98937-2) mean corpuscular hemoglobin (test 27.5 pg 26.2-33.4 [...] H leukocytes in Blood (test code = 67712-7) Granulocytes Immature [#/volume] 0.1 K/uL 0.0-0.03 H in Blood (test code = 52764-2) lymphocyte% (test code = 10.7 % 10.0-50.0 lymphocyte%) mono % (test code = mono %) 4.0 % 3.6-12.0 eos % (test code = eos %) 0.1 % 0.0-5.4 Basophils/100 leukocytes in 0.1 % 0.1-1.2 Unspecified specimen (test code = 21640-7) Neutrophils.band form [#/volume] 11.91 K/uL 1.56-6.13 H in Blood (test code = 07337-6) Lymphocytes [#/volume] in 1.5 K/uL 1.18-3.74 Unspecified specimen by Automated count (test code = 87892-3) mono # (test code = mono #) 0.56 K/uL 0.24-0.86 eos # (test code = eos #) 0.01 K/uL 0.04-0.36 L basophil # (test code = basophil 0.02 K/uL 0.01-0.08 #) NRBC% (test code = NRBC%) 0 /100 WBC 0-0.2 NRBC# (test code = NRBC#) 0 K/uL [facility]different[facility] panel, [id number] 11:08:00 NeutrophilsBandLymphocyteMonocytePlatelet EstimateMatarda Medical GroupBlood group antibody screen [Presence] in Serum or [id number] 11:08:00 Test Item Value Reference Range Interpretation Comments Blood group antibody screen negative [Presence] in Serum or Plasma (test code = 890-4) [facility] GroupHIV 1+2 Ab [Presence] in [id number] 11:08:00HIV P24 AgHIV-1/2 AbMataconnecticut hospicea Medical GroupReagin Ab [Presence] in Serum by RPR 2019-03-09 11:08:00 Test Item Value Reference Range Interpretation Comments Reagin Ab [Presence] in Serum by nonreactive nonreactive RPR (test code = 09941-9) [facility] GroupChlamydia trachomatis+Neisseria gonorrhoeae DNA [Presence] in Cervix by Probe and target amplification [id number] 10:54:00 ResultsMatagorda Medical GroupMicroscopic observation [Identifier] in Cervix by Cyto stain.thin [id number] 10:54:00ResultsMatagorda Medical GroupChlamydia trachomatis+Neisseria gonorrhoeae DNA [Presence] in Cervix by Probe and target amplification [id number] 10:54:00ResultsMatagorda Medical GroupMicroscopic observation [Identifier] in Cervix by Cyto stain.thin [id number] 10:54:00 ResultsMatagorda Medical GroupChlamydia trachomatis+Neisseria gonorrhoeae DNA [Presence] in Cervix by Probe and target amplification [id number] 10:54:00 ResultsMatagorda Medical GroupMicroscopic observation [Identifier] in Cervix by Cyto stain.thin [id number] 10:54:00ResultsMatagorda Medical GroupChlamydia trachomatis+Neisseria gonorrhoeae DNA [Presence] in Cervix by Probe and target amplification [id number] 10:54:00ResultsMatagorda Medical GroupMicroscopic observation [Identifier] in Cervix by Cyto stain.thin [id number] 10:54:00 ResultsBolivar Medical CenterUrinalysis macro (dipstick) panel - Urine 2019-03-04 15:32:00 Test Item Value Reference Range Interpretation Comments Leukocytes (test code = Moderate Leukocytes) Nitrite (test code = negative Nitrite) Urobilinogen (test code = .2 Urobilinogen) Protein (test code = Trace Protein) pH (test code = pH) 7.0 Blood (test code = Blood) Non-Hemolyzed: Trace Specific [place] (test 1.020 code = Specific [place]) Ketone (test code = Trace Ketone) Bilirubin (test code = Negative Bilirubin) Glucose (test code = Negative Glucose) Appearance (test code = Clear Appearance) Color (test code = Color) Yellow [facility] CenterUrinalysis macro (dipstick) panel - [id number] 15:32:00 Test Item Value Reference Range Interpretation Comments Leukocytes (test code = Moderate Leukocytes) Nitrite (test code = negative Nitrite) Urobilinogen (test code = .2 Urobilinogen) Protein (test code = Trace Protein) pH (test code = pH) 7.0 Blood (test code = Blood) Non-Hemolyzed: Trace Specific [place] (test 1.020 code = Specific [place]) Ketone (test code = Trace Ketone) Bilirubin (test code = Negative Bilirubin) Glucose (test code = Negative Glucose) Appearance (test code = Clear Appearance) Color (test code = Color) Yellow [facility] CenterUrinalysis macro (dipstick) panel - [id number] 15:32:00 Test Item Value Reference Range Interpretation Comments Leukocytes (test code = Moderate Leukocytes) Nitrite (test code = negative Nitrite) Urobilinogen (test code = .2 Urobilinogen) Protein (test code = Trace Protein) pH (test code = pH) 7.0 Blood (test code = Blood) Non-Hemolyzed: Trace Specific [place] (test 1.020 code = Specific [place]) Ketone (test code = Trace Ketone) Bilirubin (test code = Negative Bilirubin) Glucose (test code = Negative Glucose) Appearance (test code = Clear Appearance) Color (test code = Color) Yellow [facility] CenterUrinalysis macro (dipstick) panel - [id number] 15:32:00 Test Item Value Reference Range Interpretation Comments Leukocytes (test code = Moderate Leukocytes) Nitrite (test code = negative Nitrite) Urobilinogen (test code = .2 Urobilinogen) Protein (test code = Trace Protein) pH (test code = pH) 7.0 Blood (test code = Blood) Non-Hemolyzed: Trace Specific [place] (test 1.020 code = Specific [place]) Ketone (test code = Trace Ketone) Bilirubin (test code = Negative Bilirubin) Glucose (test code = Negative Glucose) Appearance (test code = Clear Appearance) Color (test code = Color) Yellow [facility] CenterUrinalysis macro (dipstick) panel - [id number] 15:32:00 Test Item Value Reference Range Interpretation Comments Leukocytes (test code = Moderate Leukocytes) Nitrite (test code = negative Nitrite) Urobilinogen (test code = .2 Urobilinogen) Protein (test code = Trace Protein) pH (test code = pH) 7.0 Blood (test code = Blood) Non-Hemolyzed: Trace Specific [place] (test 1.020 code = Specific [place]) Ketone (test code = Trace Ketone) Bilirubin (test code = Negative Bilirubin) Glucose (test code = Negative Glucose) Appearance (test code = Clear Appearance) Color (test code = Color) Yellow [facility] CenterUrinalysis macro (dipstick) panel - [id number] 15:32:00 Test Item Value Reference Range Interpretation Comments Leukocytes (test code = Moderate Leukocytes) Nitrite (test code = negative Nitrite) Urobilinogen (test code = .2 Urobilinogen) Protein (test code = Trace Protein) pH (test code = pH) 7.0 Blood (test code = Blood) Non-Hemolyzed: Trace Specific [place] (test 1.020 code = Specific [place]) Ketone (test code = Trace Ketone) Bilirubin (test code = Negative Bilirubin) Glucose (test code = Negative Glucose) Appearance (test code = Clear Appearance) Color (test code = Color) Yellow [facility] CenterCBC W Auto Differential panel - [id number] 12:35:00 Test Item Value Reference Range Interpretation Comments white blood count (test code = 12.4 K/uL 4.0-11.5 white blood count) red blood count (test code = red 3.63 M/uL 3.80-5.20 L blood count) hemoglobin (test code = 10.0 g/dL 10.5-15.7 L hemoglobin) hematocrit (test code = 31.4 % 34.0-50.0 hematocrit) Erythrocyte mean corpuscular 86.5 fL 86-100 volume [Entitic volume] (test code = 19667-3) mean corpuscular hemoglobin (test 27.5 pg 26.2-33.4 [...] 44.4-80.1 leukocytes in Blood (test code = 53956-2) Granulocytes Immature [#/volume] 0.1 K/uL 0.0-0.03 H in Blood (test code = 23986-5) lymphocyte% (test code = 15.7 % 10.0-50.0 lymphocyte%) mono % (test code = mono %) 5.7 % 3.6-12.0 eos % (test code = eos %) 0.3 % 0.0-5.4 Basophils/100 leukocytes in 0.2 % 0.1-1.2 Unspecified specimen (test code = 96078-3) Neutrophils.band form [#/volume] 9.61 K/uL 1.56-6.13 H in Blood (test code = 80204-1) Lymphocytes [#/volume] in 1.9 K/uL 1.18-3.74 Unspecified specimen by Automated count (test code = 17639-1) mono # (test code = mono #) 0.70 K/uL 0.24-0.86 eos # (test code = eos #) 0.04 K/uL 0.04-0.36 basophil # (test code = basophil 0.02 K/uL 0.01-0.08 #) NRBC% (test code = NRBC%) 0 /100 WBC 0-0.2 NRBC# (test code = NRBC#) 0 K/uL [facility] GroupHIV 1+2 Ab [Presence] in [id number] 12:35:00HIV P24 AgHIV-1/2 AbMatagorda Medical GroupABO & Rh group [Type] in [id number] 12:35:00 Test Item Value Reference Range Interpretation Comments Rh [Type] in Blood (test code = 3+ 74274-2) ABO and Rh group panel - Blood O positive (test code = 33608-7) [facility] GroupBlood group antibody screen [Presence] in Serum or Plasma 2019-03-04 12:35:00 Test Item Value Reference Range Interpretation Comments Blood group antibody screen negative [Presence] in Serum or Plasma (test code = 890-4) [facility] GroupBacteria identified in Urine by [id number] 12:35:00Bacteria Ur CultMatagorda Medical GroupReagin Ab [Presence] in Serum by [id number] 12:35:00 Test Item Value Reference Range Interpretation Comments Reagin Ab [Presence] in Serum by nonreactive nonreactive RPR (test code = 63391-1) [facility] Centerantibiotic sensitivity testing, [id number] 12:35:00 Test Item Value Reference Range Interpretation [...] Minimum inhibitory concentration (GUSTAVO) (test code = 09229-5) Piperacillin+Tazobactam <16 [Susceptibility] by Minimum inhibitory concentration [...] <0.5 inhibitory concentration (GUSTAVO) (test code = 49429-1) Aztreonam [Susceptibility] by Minimum <4 inhibitory concentration (GUSTAVO) (test code = 44-8) Cefuroxime [Susceptibility] by Minimum <4 inhibitory concentration (GUSTAVO) (test code = 47945-7) [facility] W Auto Differential panel - [id number] 12:35:00 Test Item Value Reference Range Interpretation Comments white blood count (test code = 12.4 K/uL 4.0-11.5 white blood count) red blood count (test code = red 3.63 M/uL 3.80-5.20 L blood count) hemoglobin (test code = 10.0 g/dL 10.5-15.7 L hemoglobin) hematocrit (test code = 31.4 % 34.0-50.0 hematocrit) Erythrocyte mean corpuscular 86.5 fL 86-100 volume [Entitic volume] (test code = 67361-2) mean corpuscular hemoglobin (test 27.5 pg 26.2-33.4 [...] 44.4-80.1 leukocytes in Blood (test code = 04736-2) Granulocytes Immature [#/volume] 0.1 K/uL 0.0-0.03 H in Blood (test code = 75704-7) lymphocyte% (test code = 15.7 % 10.0-50.0 lymphocyte%) mono % (test code = mono %) 5.7 % 3.6-12.0 eos % (test code = eos %) 0.3 % 0.0-5.4 Basophils/100 leukocytes in 0.2 % 0.1-1.2 Unspecified specimen (test code = 01088-7) Neutrophils.band form [#/volume] 9.61 K/uL 1.56-6.13 H in Blood (test code = 98343-6) Lymphocytes [#/volume] in 1.9 K/uL 1.18-3.74 Unspecified specimen by Automated count (test code = 53426-3) mono # (test code = mono #) 0.70 K/uL 0.24-0.86 eos # (test code = eos #) 0.04 K/uL 0.04-0.36 basophil # (test code = basophil 0.02 K/uL 0.01-0.08 #) NRBC% (test code = NRBC%) 0 /100 WBC 0-0.2 NRBC# (test code = NRBC#) 0 K/uL [facility] GroupHIV 1+2 Ab [Presence] in [id number] 12:35:00HIV P24 AgHIV-1/2 AbMatarda Medical GroupABO & Rh group [Type] in [id number] 12:35:00 Test Item Value Reference Range Interpretation Comments Rh [Type] in Blood (test code = 3+ 33433-8) ABO and Rh group panel - Blood O positive (test code = 73841-4) [facility] GroupBlood group antibody screen [Presence] in Serum or Plasma 2019-03-04 12:35:00 Test Item Value Reference Range Interpretation Comments Blood group antibody screen negative [Presence] in Serum or Plasma (test code = 890-4) [facility] GroupBacteria identified in Urine by [id number] 12:35:00Bacteria Ur CultMethodist Specialty [facility]plant [facility] GroupReagin Ab [Presence] in Serum by [id number] 12:35:00 Test Item Value Reference Range Interpretation Comments Reagin Ab [Presence] in Serum by nonreactive nonreactive RPR (test code = 80634-5) [facility] Groupantibiotic sensitivity testing, [id number] 12:35:00 Test Item Value Reference Range Interpretation [...] Minimum inhibitory concentration (GUSTAVO) (test code = 42454-0) Piperacillin+Tazobactam <16 [Susceptibility] by Minimum inhibitory concentration [...] <0.5 inhibitory concentration (GUSTAVO) (test code = 80249-9) Aztreonam [Susceptibility] by Minimum <4 inhibitory concentration (GUSTAVO) (test code = 44-8) Cefuroxime [Susceptibility] by Minimum <4 inhibitory concentration (GUSTAVO) (test code = 47075-9) [facility] W Auto Differential panel - [id number] 12:35:00 Test Item Value Reference Range Interpretation Comments white blood count (test code = 12.4 K/uL 4.0-11.5 white blood count) red blood count (test code = red 3.63 M/uL 3.80-5.20 L blood count) hemoglobin (test code = 10.0 g/dL 10.5-15.7 L hemoglobin) hematocrit (test code = 31.4 % 34.0-50.0 hematocrit) Erythrocyte mean corpuscular 86.5 fL 86-100 volume [Entitic volume] (test code = 39883-6) mean corpuscular hemoglobin (test 27.5 pg 26.2-33.4 [...] 44.4-80.1 leukocytes in Blood (test code = 46411-9) Granulocytes Immature [#/volume] 0.1 K/uL 0.0-0.03 H in Blood (test code = 18476-9) lymphocyte% (test code = 15.7 % 10.0-50.0 lymphocyte%) mono % (test code = mono %) 5.7 % 3.6-12.0 eos % (test code = eos %) 0.3 % 0.0-5.4 Basophils/100 leukocytes in 0.2 % 0.1-1.2 Unspecified specimen (test code = 58201-8) Neutrophils.band form [#/volume] 9.61 K/uL 1.56-6.13 H in Blood (test code = 23961-2) Lymphocytes [#/volume] in 1.9 K/uL 1.18-3.74 Unspecified specimen by Automated count (test code = 27770-7) mono # (test code = mono #) 0.70 K/uL 0.24-0.86 eos # (test code = eos #) 0.04 K/uL 0.04-0.36 basophil # (test code = basophil 0.02 K/uL 0.01-0.08 #) NRBC% (test code = NRBC%) 0 /100 WBC 0-0.2 NRBC# (test code = NRBC#) 0 K/uL [facility] GroupHIV 1+2 Ab [Presence] in [id number] 12:35:00HIV P24 AgHIV-1/2 AbMaWatertown Regional Medical Center GroupABO & Rh group [Type] in [id number] 12:35:00 Test Item Value Reference Range Interpretation Comments Rh [Type] in Blood (test code = 3+ 49564-1) ABO and Rh group panel - Blood O positive (test code = 56897-4) [facility] CenterBlood [facility] screen [Presence] in Serum or Plasma 2019-03-04 12:35:00 Test Item Value Reference Range Interpretation Comments Blood group antibody screen negative [Presence] in Serum or Plasma (test code = 890-4) [facility] GroupBacteria identified in Urine by [id number] 12:35:00Bacteria Ur CultMethodist Specialty And Transplant Hospital GroupReagin Ab [Presence] in Serum by [id number] 12:35:00 Test Item Value Reference Range Interpretation Comments Reagin Ab [Presence] in Serum by nonreactive nonreactive RPR (test code = 67463-5) [facility] Centerantib[facility] sensitivity testing, [id number] 12:35:00 Test Item Value Reference Range Interpretation [...] Minimum inhibitory concentration (GUSTAVO) (test code = 94071-7) Piperacillin+Tazobactam <16 [Susceptibility] by Minimum inhibitory concentration [...] <0.5 inhibitory concentration (GUSTAVO) (test code = 16018-9) Aztreonam [Susceptibility] by Minimum <4 inhibitory concentration (GUSTAVO) (test code = 44-8) Cefuroxime [Susceptibility] by Minimum <4 inhibitory concentration (GUSTAVO) (test code = 17435-6) [facility] W Auto Differential panel - [id number] 12:35:00 Test Item Value Reference Range Interpretation Comments white blood count (test code = 12.4 K/uL 4.0-11.5 white blood count) red blood count (test code = red 3.63 M/uL 3.80-5.20 L blood count) hemoglobin (test code = 10.0 g/dL 10.5-15.7 L hemoglobin) hematocrit (test code = 31.4 % 34.0-50.0 hematocrit) Erythrocyte mean corpuscular 86.5 fL 86-100 volume [Entitic volume] (test code = 68061-9) mean corpuscular hemoglobin (test 27.5 pg 26.2-33.4 [...] 44.4-80.1 leukocytes in Blood (test code = 14182-0) Granulocytes Immature [#/volume] 0.1 K/uL 0.0-0.03 H in Blood (test code = 19782-9) lymphocyte% (test code = 15.7 % 10.0-50.0 lymphocyte%) mono % (test code = mono %) 5.7 % 3.6-12.0 eos % (test code = eos %) 0.3 % 0.0-5.4 Basophils/100 leukocytes in 0.2 % 0.1-1.2 Unspecified specimen (test code = 47722-8) Neutrophils.band form [#/volume] 9.61 K/uL 1.56-6.13 H in Blood (test code = 07902-9) Lymphocytes [#/volume] in 1.9 K/uL 1.18-3.74 Unspecified specimen by Automated count (test code = 39250-6) mono # (test code = mono #) 0.70 K/uL 0.24-0.86 eos # (test code = eos #) 0.04 K/uL 0.04-0.36 basophil # (test code = basophil 0.02 K/uL 0.01-0.08 #) NRBC% (test code = NRBC%) 0 /100 WBC 0-0.2 NRBC# (test code = NRBC#) 0 K/uL [facility] GroupHIV 1+2 Ab [Presence] in [id number] 12:35:00HIV P24 AgHIV-1/2 AbMataProctor Hospital GroupABO & Rh group [Type] in [id number] 12:35:00 Test Item Value Reference Range Interpretation Comments Rh [Type] in Blood (test code = 3+ 84770-9) ABO and Rh group panel - Blood O positive (test code = 63865-7) [facility] [Presence] in Serum or Plasma 2019-03-04 12:35:00 Test Item Value Reference Range Interpretation Comments Blood group antibody screen negative [Presence] in Serum or Plasma (test code = 890-4) [facility] CenterBacteria identified in Urine by [id number] 12:35:00Bacteria Ur CultBolivar Medical CenterReagin Ab [Presence] in Serum by [id number] 12:35:00 Test Item Value Reference Range Interpretation Comments Reagin Ab [Presence] in Serum by nonreactive nonreactive RPR (test code = 54088-6) [facility] Centerantib[facility] testing, [id number] 12:35:00 Test Item Value Reference Range Interpretation [...] Minimum inhibitory concentration (GUSTAVO) (test code = 31754-6) Piperacillin+Tazobactam <16 [Susceptibility] by Minimum inhibitory concentration [...] <0.5 inhibitory concentration (GUSTAVO) (test code = 19030-8) Aztreonam [Susceptibility] by Minimum <4 inhibitory concentration (GUSTAVO) (test code = 44-8) Cefuroxime [Susceptibility] by Minimum <4 inhibitory concentration (GUSTAVO) (test code = 82363-1) [facility] W Auto Differential panel - [id number] 12:35:00 Test Item Value Reference Range Interpretation Comments white blood count (test code = 12.4 K/uL 4.0-11.5 white blood count) red blood count (test code = red 3.63 M/uL 3.80-5.20 L blood count) hemoglobin (test code = 10.0 g/dL 10.5-15.7 L hemoglobin) hematocrit (test code = 31.4 % 34.0-50.0 hematocrit) Erythrocyte mean corpuscular 86.5 fL 86-100 volume [Entitic volume] (test code = 31717-3) mean corpuscular hemoglobin (test 27.5 pg 26.2-33.4 [...] 44.4-80.1 leukocytes in Blood (test code = 37585-6) Granulocytes Immature [#/volume] 0.1 K/uL 0.0-0.03 H in Blood (test code = 47842-9) lymphocyte% (test code = 15.7 % 10.0-50.0 lymphocyte%) mono % (test code = mono %) 5.7 % 3.6-12.0 eos % (test code = eos %) 0.3 % 0.0-5.4 Basophils/100 leukocytes in 0.2 % 0.1-1.2 Unspecified specimen (test code = 11034-9) Neutrophils.band form [#/volume] 9.61 K/uL 1.56-6.13 H in Blood (test code = 85942-5) Lymphocytes [#/volume] in 1.9 K/uL 1.18-3.74 Unspecified specimen by Automated count (test code = 92777-4) mono # (test code = mono #) 0.70 K/uL 0.24-0.86 eos # (test code = eos #) 0.04 K/uL 0.04-0.36 basophil # (test code = basophil 0.02 K/uL 0.01-0.08 #) NRBC% (test code = NRBC%) 0 /100 WBC 0-0.2 NRBC# (test code = NRBC#) 0 K/uL [facility] GroupHIV 1+2 Ab [Presence] in [id number] 12:35:00HIV P24 AgHIV-1/2 AbMataconnecticut hospicea Medical GroupABO & Rh group [Type] in [id number] 12:35:00 Test Item Value Reference Range Interpretation Comments Rh [Type] in Blood (test code = 3+ 14308-3) ABO and Rh group panel - Blood O positive (test code = 77865-0) [facility] GroupBlood group antibody screen [Presence] in Serum or Plasma 2019-03-04 12:35:00 Test Item Value Reference Range Interpretation Comments Blood group antibody screen negative [Presence] in Serum or Plasma (test code = 890-4) [facility] GroupBacteria identified in Urine by [id number] 12:35:00Bacteria Ur CultWoman'S Hospital Of Texasa Medical GroupReagin Ab [Presence] in Serum by [id number] 12:35:00 Test Item Value Reference Range Interpretation Comments Reagin Ab [Presence] in Serum by nonreactive nonreactive RPR (test code = 91071-4) [facility] Groupantibiotic sensitivity testing, [id number] 12:35:00 Test Item Value Reference Range Interpretation [...] Minimum inhibitory concentration (GUSTAVO) (test code = 81422-0) Piperacillin+Tazobactam <16 [Susceptibility] by Minimum inhibitory concentration [...] <0.5 inhibitory concentration (GUSTAVO) (test code = 59063-5) Aztreonam [Susceptibility] by Minimum <4 inhibitory concentration (GUSTAVO) (test code = 44-8) Cefuroxime [Susceptibility] by Minimum <4 inhibitory concentration (GUSTAVO) (test code = 66321-0) [facility]Hedeacon[facility] systemtis B virus surface Ag [Presence] in Serum 2019-03-04 02:36:00 Test Item Value Reference Range Interpretation Comments .hepatitis B surface antigen (test negative negative code = .hepatitis B surface antigen) [facility] CenterHedeaconess health systemtis B virus surface Ag [Presence] in Serum 2019-03-04 02:36:00 Test Item Value Reference Range Interpretation Comments .hepatitis B surface antigen (test negative negative code = .hepatitis B surface antigen) [facility] B virus surface Ag [Presence] in Serum 2019-03-04 02:36:00 Test Item Value Reference Range Interpretation Comments .hepatitis B surface antigen (test negative negative code = .hepatitis B surface antigen) [facility] B virus surface Ag [Presence] in Serum 2019-03-04 02:36:00 Test Item Value Reference Range Interpretation Comments .hepatitis B surface antigen (test negative negative code = .hepatitis B surface antigen) [facility] B virus surface Ag [Presence] in Serum 2019-03-04 02:36:00 Test Item Value Reference Range Interpretation Comments .hepatitis B surface antigen (test negative negative code = .hepatitis B surface antigen) [facility]
[2022-05-03] MEDS ORDERED: TETRACAINE HCL 0.5% 4ML OPTH ONE (10:41)
[2022-05-03] MEDS ORDERED: FLUORESCEIN SODIUM 1 MG/WRAP ONE (10:41)
--- NOTE | 2022-05-03 10:48 | EDPHYS ---
Physician Documentation [facility] Name: Gloria Modi Age: 26 yrs Sex: Female : 1995 Arrival Date: 05/03/2022 Time: 10:06 Bed 9 Private MD: ED Physician Lyle Figueroa HPI: 05/03 14:42 This 26 yrs old Female presents to ER via Ambulatory with complaints of Eye Swelling. kb 14:42 The patient is experiencing matting or discharge, pain, The patient sustained None. to kb the right eye, caused by an unknown mechanism. Onset: The symptoms/episode began/occurred this morning. Duration: the symptoms are continuous. Aggravated by light, Alleviated by nothing. Associated signs and symptoms: Pertinent positives: None. Severity of symptoms: At their worst the symptoms were mild moderate in the emergency department the symptoms are unchanged. The patient has not experienced similar symptoms in the past. The patient has not recently seen a physician. Pt reports she woke up with right eye matted shut, green discharge, pain and itching. . 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 - Social history:: Smoking status: Patient reports the use of cigarette tobacco products, denies chronic smoking, but will smoke occasionally, Reported history of juuling and/or vaping. ROS: 14:42 Constitutional: Negative for fever, chills, and weight loss. kb 14:42 Eyes: Positive for discharge, itching, matting, pain. 14:42 All other systems are negative. Exam: 14:42 Constitutional: This is a well developed, well nourished patient who is awake, alert, kb and in no acute distress. Head/Face: Normocephalic, atraumatic. Eyes: Pupils equal round and reactive to light, extra-ocular motions intact. Lids and lashes normal. Conjunctiva and sclera are non-icteric and not injected. Cornea within normal limits. Periorbital areas with no swelling, redness, or edema. ENT: Moist Mucous membranes Cardiovascular: Regular rate and rhythm with a normal S1 and S2. No gallops, murmurs, or rubs. No pulse deficits. Respiratory: Respirations even and unlabored. No increased work of breathing. Talking in full sentences Skin: Warm, dry with normal turgor. Normal color. MS/ Extremity: Pulses equal, no cyanosis. Neurovascular intact. Full, normal range of motion. Neuro: Awake and alert, GCS 15, oriented to person, place, time, and situation. Moves all extremities. Normal gait. Psych: Awake, alert, with orientation to person, place and time. Behavior, mood, and affect are within normal limits. 14:42 Eyes: Corneas: are normal, no evidence of abrasion, no foreign body, a fluorescein strip employed to appreciate the findings. Vital Signs: 10:18 BP 120 / 94; Pulse 102; Resp 16; Temp 97.6; Pulse Ox 100% on R/A; Weight 42.18 kg; iw Height 5 ft. 0 in. (152.40 cm); 10:18 Body Mass Index 18.16 (42.18 kg, 152.40 cm) iw Visual Acuity: 11:05 Left Eye Visual acuity 20/30, ; Right Eye Visual acuity 20/40, ; Without Lenses; ap3 MDM: 10:21 Patient medically screened. kb 14:41 Data reviewed: vital signs, nurses notes. kb 14:43 Differential diagnosis: Corneal abrasion of Corneal ulcer of Counseling: I had a kb detailed discussion with the patient and/or guardian regarding: the historical points, exam findings, and any diagnostic results supporting the discharge/admit diagnosis, the need for outpatient follow up, an opthalmologist, to return to the emergency department if symptoms worsen or persist or if there are any questions or concerns that arise at home. 05/03 10:21 Order name: Eye Tray; Complete Time: 10:41 kb 05/03 10:21 Order name: Fluoresene Opth strip; Complete Time: 10:42 kb 05/03 10:21 Order name: Visual Acuity; Complete Time: 11:06 kb Administered Medications: 10:58 Drug: Tetracaine Drops 0.5 % 1 drops {Note: by NP. cristy} Route: Ophthalmic; Site: [facility] both eyes; 10:58 Follow up: Response: No adverse reaction ap3 Disposition: 15:33 Co-signature as Attending Physician, Lyle Figueroa MD I agree with the assessment and kdr plan of care. Disposition Summary: 05/03/22 10:47 Discharge Ordered Location: Home Condition: Stable kb Diagnosis - Unspecified acute conjunctivitis, right eye kb Followup: kb - With: Emergency Department - When: As needed - Reason: Worsening of condition Followup: kb - With: Private Physician - When: 2 - 3 days - Reason: Recheck today's complaints, Continuance of care, Re-evaluation by your physician Discharge Instructions: - Discharge Summary Sheet kb - How to Use Eye Drops and Eye Ointments kb - Bacterial Conjunctivitis, Adult, [id number] kb Forms: - Medication Reconciliation Form kb - Thank You Letter kb - Antibiotic Education kb - Prescription Opioid Use kb - Work release form ap3 Prescriptions: - Erythromycin 5 mg/gram (0.5 %) Ophthalmic Ointment - apply 1 ribbon by OPHTHALMIC route every 8 hours for 7 days; 1 tube; Refills: kb 0, Product Selection Permitted Signatures: Cristy Alaniz, MARIO NEVAREZ-Lyle Maza MD MD kdr Genet Merino RN RN Liz Pichardo RN RN ap3
--- NOTE | 2022-05-03 10:48 | ER ---
Nurse's Notes [facility] Name: Gloria Modi Age: 26 yrs Sex: Female : 1995 Arrival Date: 05/03/2022 Time: 10:06 Bed 9 Private MD: Diagnosis: Unspecified acute conjunctivitis, right eye Presentation: 05/03 10:18 Chief complaint: Patient states: my right eye is really swollen, it fong and itches iw bad since i woke up , it was matted this morning. Coronavirus screen: At this time, the client does not indicate any symptoms associated with coronavirus-19. Ebola Screen: Patient negative for fever greater than or equal to 101.5 degrees Fahrenheit, and additional compatible Ebola Virus Disease symptoms Patient denies exposure to infectious person. Patient denies travel to an Ebola-affected area in the 21 days before illness onset. No symptoms or risks identified at this time. Initial Sepsis Screen: Does the patient meet any 2 criteria? No. Patient's initial sepsis screen is negative. Does the patient have a suspected source of infection? No. Patient's initial sepsis screen is negative. Risk Assessment: Do you want to hurt yourself or someone else? Patient reports no desire to harm self or others. Onset of symptoms was May 03, 2022. 10:18 Method Of Arrival: Ambulatory iw 10:18 Acuity: NICO 4 iw Triage Assessment: 10:57 General: Appears in no apparent distress. Behavior is calm, cooperative, appropriate ap3 for age. Pain: Complains of pain in right eye and left eye. 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 - Social history:: Smoking status: Patient reports the use of cigarette tobacco products, denies chronic smoking, but will smoke occasionally, Reported history of juuling and/or vaping. Screenin:57 [facility] ED Fall Risk Assessment (Adult) History of falling in the last 3 months, ap3 including since admission No falls in past 3 months (0 pts). Abuse screen: Denies threats or abuse. Nutritional screening: No deficits noted. Tuberculosis screening: No symptoms or risk factors identified. Vital Signs: 10:18 BP 120 / 94; Pulse 102; Resp 16; Temp 97.6; Pulse Ox 100% on R/A; Weight 42.18 kg; iw Height 5 ft. 0 in. (152.40 cm); 10:18 Body Mass Index 18.16 (42.18 kg, 152.40 cm) iw Visual Acuity: 11:05 Left Eye Visual acuity 20/30, ; Right Eye Visual acuity 20/40, ; Without Lenses; ap3 ED Course: 10:06 Patient arrived in ED. mr 10:19 Triage completed. iw 10:20 Arm band placed on. iw 10:21 Cristy Alaniz F[facility]-C [facility]. kb 10:21 Lyle Figueroa MD is Attending Physician. kb 10:57 Liz Pichardo, HORTENCIA is Primary Nurse. ap3 10:57 Patient has correct armband on for positive identification. Adult w/ patient. ap3 10:57 No provider procedures requiring assistance completed. Patient did not have IV access ap3 during this emergency room visit. Administered Medications: 10:58 Drug: Tetracaine Drops 0.5 % 1 drops {Note: by JANIS cross.} Route: Ophthalmic; Site: ap3 both eyes; 10:58 Follow up: Response: No adverse reaction ap3 Medication: 10:57 VIS not applicable for this client. ap3 Outcome: 10:47 Discharge ordered by . kb 11:06 Discharged to home ambulatory. ap3 11:06 Condition: good 11:06 Discharge instructions given to patient, Instructed on discharge instructions, follow up and referral plans. medication usage, Demonstrated understanding of instructions, follow-up care, medications, Prescriptions given X 1. 11:11 Patient left the ED. ap3 Signatures: Cristy Alaniz FNP-C FNP-Amalia Ashanti Andrade Genet Merino RN RN iw Liz Pichardo RN RN ap3
[2022-05-03 11:27] VITALS: BP 120/94; TEMP 97.6; O2SAT 100
== END 2022-05-03 11:11 | disposition home or self-care (01) ==
LOC: ER 10:04
DX: H10.31 Unspecified acute conjunctivitis, right eye (principal); F31.9 Bipolar disorder, unspecified; F43.10 Post-traumatic stress disorder, unspecified; G89.29 Other chronic pain; G61.0 Guillain-Barre syndrome

== ENCOUNTER 2022-06-01 20:50 | Emergency (ER) | payer OTHER ==
--- OUTSIDE RECORDS SUMMARY | 2022-06-01 21:01 | XMS REPORT | Continuity of Care Document ---
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 00:00:00 pertussis Vaccine Varicella Vaccine 2009-11-24 Completed [facility] 00:00:00 MCV4 Meningococcal 2009-11-24 Completed [facility] Conjugate (Menactra) 00:00:00 DTaP, unspecified DTaP, unspecified 2001-12-02 Completed [facility] - [facility] formulation - ML 00:00:00 Me dical Group MMR - ML MMR - ML 2001-12-02 Completed [facility] IPV - ML IPV - ML 2001-12-02 Completed [facility] DTaP, unspecified DTaP, unspecified 2001-12-02 Completed [facility] formulation - ML formulation - ML 00:00:00 Me dical Group MMR - ML MMR - ML 2001-12-02 Completed [facility] IPV - ML IPV - ML 2001-12-02 Completed [facility] 00:[facility] DTaP Diphtheria, 2001-12-02 Completed [facility] Tetanus, Acellular, 00:00:00 Pertussis Hib Haemophilus 2001-12-02 Completed [facility]th Influenzae Type B 00:00:00 Poliovirus Ipv 2001-12-02 Completed [facility] lth 00:00:00 DTaP Diphtheria, 2001-12-02 Completed [facility] Tetanus, Acellular, 00:00:00 Pertussis Hib Haemophilus 2001-12-02 Completed [facility] alth Influenzae Type B 00:00:00 Poliovirus Ipv [...] Ipv 2001-12-02 [facility] 00:[facility]:00 Hep B, adolescent or Hep B, adolescent or 2000-12-09 Completed [facility] - [facility] pediatric - ML 00:00:00 Medica l Group Hep B, adolescent or Hep B, adolescent or 2000-12-09 Completed [facility] pediatric - ML 00:00:00 Medica l Group Hepatitis B Vaccine 2000-12-09 Completed [facility] [...] Vaccine 2000-12-09 Com[facility] 00:00:00 DTaP-Hib - ML DTaP-Hib - ML 1998-12-02 Completed [facility] OPV - ML OPV - ML 1998-12-02 Completed [facility] DTaP-Hib - ML DTaP-Hib - ML 1998-12-02 Completed [facility] OPV - ML OPV - ML 1998-12-02 Completed [facility] Poliovirus Ipv 1998-12-02 Com[facility] Poliovirus Ipv 1998-12-02 Com[facility] 00:[facility]:00 Poliovirus Ipv 1998-12-02 Com[facility] 00:[facility]:00 Poliovirus Ipv 1998-12-02 Completed [facility] 00:00:00 Poliovirus Ipv 1998-12-02 Com[facility] 00:00:00 Poliovirus Ipv 1998-12-02 Com[facility] 00:00:00 Poliovirus Ipv 1998-12-02 Com[facility] 00:00:00 Poliovirus Ipv 1998-12-02 Completed [facility] 00:00:00 Poliovirus Ipv 1998-12-02 Com[facility] 00:00:00 varicella - ML varicella - ML 1998-08-31 Completed [facility] 00:[facility]:00 [facility] Group MMR - ML MMR - ML 1998-08-31 Completed [facility] varicella - ML varicella - ML 1998-08-31 Completed [facility] 00:00:00 [facility] Group MMR - ML MMR - ML 1998-08-31 Completed [facility] 00:[facility] Hib Haemophilus 1998-08-31 Completed [facility] alth Influenzae Type B 00:00:00 Varicella Vaccine 1998-08-31 Completed [facility] 00:00:00 Hib Haemophilus 1998-08-31 Completed [facility] alth Influenzae Type B 00:00:00 Varicella Vaccine 1998-08-31 Completed [facility] 00:00:00 Hib Haemophilus 1998-08-31 Completed [facility] alth Influenzae Type B 00:00:00 Varicella Vaccine 1998-08-31 Completed [facility] 00:00:00 Hib Haemophilus 1998-08-31 Completed [facility] alth Influenzae Type B 00:00:00 Varicella Vaccine 1998-08-31 Completed [facility] 00:00:00 Hib Haemophilus 1998-08-31 Completed [facility] alth Influenzae Type B 00:00:00 Varicella Vaccine 1998-08-31 Completed [facility] 00:00:00 Hib Haemophilus 1998-08-31 Completed [facility] alth Influenzae Type B 00:00:00 Varicella Vaccine 1998-08-31 Completed [facility] 00:00:00 Hib Haemophilus 1998-08-31 Completed [facility] alth Influenzae Type B 00:00:00 Varicella Vaccine 1998-08-31 Completed [facility] 00:00:00 Hib Haemophilus 1998-08-31 Completed [facility] alth Influenzae Type B 00:00:00 Varicella Vaccine 1998-08-31 Completed [facility] 00:00:00 Hib Haemophilus 1998-08-31 Completed [facility] alth Influenzae Type B 00:00:00 Varicella Vaccine 1998-08-31 Completed [facility] 00:00:00 DTaP, unspecified DTaP, unspecified 1998-03-04 Completed [facility] - ML formulation - ML 00:00:00 Me dical Group DTaP, unspecified DTaP, unspecified 1998-03-04 Completed [facility] formulation - ML formulation - ML 00:00:00 Me dical Group DTaP Diphtheria, 1998-03-04 Com[facility] Tetanus, Acellular, 00:00:00 Pertussis DTaP, unspecified DTaP, unspecified 1997 Completed [facility] - ML formulation - ML 00:00:00 Me dical Group IPV - ML IPV - ML 1997 Completed [facility] DTaP, unspecified DTaP, unspecified 1997 Completed [facility] formulation - ML formulation - ML 00:00:00 Me dical Group IPV - ML IPV - ML 1997 Completed [facility] 00:[facility] DTaP Diphtheria, 1997 Completed [facility] [...] Ipv 1997 Com[facility] 00:[facility]:00 DTaP, unspecified DTaP, unspecified 1997 Completed [facility] formulation - ML formulation - ML 00:00:00 Me dical Group Hep B, adolescent or Hep B, adolescent or 1997 Completed [facility] - [facility] pediatric - ML 00:00:00 Medica l Group IPV - ML IPV - ML 1997 Completed [facility] 00:[facility] DTaP, unspecified DTaP, unspecified 1997 Completed [facility] formulation - ML formulation - ML 00:00:00 Me dical Group Hep B, adolescent or Hep B, adolescent or 1997 Completed [facility] pediatric - ML 00:00:00 Medica l Group IPV - ML IPV - ML 1997 Completed [facility] 00:[facility] DTaP Diphtheria, 1997 Completed [facility] Tetanus, Acellular, 00:00:00 Pertussis Poliovirus Ipv 1997 Com[facility] 00:[facility]:00 Hepatitis B Vaccine 1997 Completed [facility] 00:00:00 DTaP Diphtheria, 1997 Completed [facility] Tetanus, Acellular, 00:00:00 Pertussis Poliovirus Ipv 1997 Completed [facility] 00:[facility]:00 Hepatitis B Vaccine 1997 Completed [email or web address] 00:00:00 DTaP Diphtheria, 1997 Completed [facility] Tetanus, Acellular, 00:00:00 Pertussis Poliovirus Ipv 1997 Completed [facility] 00:00:00 Hepatitis B Vaccine 1997 Completed [email or web address] 00:00:00 DTaP Diphtheria, 1997 Completed [facility] Tetanus, Acellular, 00:00:00 Pertussis Poliovirus Ipv 1997 Completed [facility] 00:00:00 Hepatitis B Vaccine 1997 Completed [email or web address] [facility] 00:00:00 DTaP Diphtheria, 1997 Completed [facility] Tetanus, Acellular, 00:00:00 Pertussis Poliovirus Ipv 1997 Completed [facility] 00:00:00 Hepatitis B Vaccine 1997 Completed [email or web address] [facility] 00:00:00 DTaP Diphtheria, 1997 Completed [facility] Tetanus, Acellular, 00:00:00 Pertussis Poliovirus Ipv 1997 Completed [facility] 00:00:00 Hepatitis B Vaccine 1997 Completed [email or web address] [facility] 00:00:00 DTaP Diphtheria, 1997 Completed [facility] Tetanus, Acellular, 00:00:00 Pertussis Poliovirus Ipv 1997 Completed [facility] 00:00:00 Hepatitis B Vaccine 1997 Completed [email or web address] [facility] 00:00:00 DTaP Diphtheria, 1997 Completed [facility] Tetanus, Acellular, 00:00:00 Pertussis Poliovirus Ipv 1997 Completed [facility] 00:00:00 Hepatitis B Vaccine 1997 Completed [email or web address] [facility] 00:00:00 DTaP Diphtheria, 1997 Completed [facility] Tetanus, Acellular, 00:00:00 Pertussis Poliovirus Ipv 1997 Completed [facility] 00:00:00 Hepatitis B Vaccine 1997 Completed [email or web address] 00:00:00 Hep B, adolescent or Hep B, adolescent or 1997 Completed [facility] - [facility] pediatric - ML 00:00:00 Medica l Group Hep B, adolescent or Hep B, adolescent or 1997 Completed [facility] - ML pediatric - ML 00:00:00 Medica l Group Hepatitis B Vaccine 1997 Completed [facility] 00:00:00 Hepatitis B Vaccine 1997 Completed [facility] 00:00:00 Hepatitis B Vaccine 1997 Completed [facility] 00:00:00 Hepatitis B Vaccine 1997 Completed [facility] 00:00:00 Hepatitis B Vaccine 1997 Com[facility] 00:00:00 Hepatitis B Vaccine 1997 Completed [facility] 00:00:00 Hepatitis B Vaccine 1997 Completed [facility] 00:00:00 Hepatitis B Vaccine 1997 Completed [facility] 00:00:00 Hepatitis B Vaccine 1997 Completed [facility] 00:00:00 Hep B, adolescent or Hep B, adolescent or 1997 Completed [facility] pediatric - ML 00:00:00 Medica l Group Hep B, adolescent or Hep B, adolescent or 1997 Completed [facility] - [facility] pediatric - ML 00:00:00 Medica l Group Vital Signs Vital Name Observation Time Observation Value Comments Source BP Diastolic 2022-05-18 00:00:00 65 mm[Hg] [facility] Height 2022-05-18 00:00:00 60 [in_i] [facility] BMI (Body Mass 2022-05-18 00:00:00 17.4 kg/m2 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) Group BP Systolic 2022-05-18 00:00:00 95 mm[Hg] [facility] Body Weight 2022-05-18 00:00:00 1429 [oz_av] [facility] Height 2022-05-15 00:00:00 60 [in_i] [facility] BMI (Body Mass 2022-05-15 00:00:00 17.4 kg/m2 [facility] Medical Index) Group Body Weight 2022-05-15 00:00:00 1429 [oz_av] [facility] BP Diastolic 2022-02-20 00:00:00 62 mm[Hg] [facility] Height 2022-02-20 00:00:00 60 [in_i] [facility] BMI (Body Mass 2022-02-20 00:00:00 18.6 kg/m2 [facility] Medical Index) Group BP Systolic 2022-02-20 00:00:00 101 mm[Hg] [facility] Body Weight 2022-02-20 00:00:00 1520 [oz_av] [facility] BP Diastolic 2022-01-17 00:00:00 73 mm[Hg] [facility] Height 2022-01-17 00:00:00 60 [in_i] [facility] BMI (Body Mass 2022-01-17 00:00:00 17.6 kg/m2 [facility] Medical Index) Group BP Systolic 2022-01-17 00:00:00 114 mm[Hg] [facility] Body Weight 2022-01-17 00:00:00 1440 [oz_av] [facility] Systolic blood 2022-01-05 21:03:00 123 mm[Hg] [facility] pressure [facility] Branch Diastolic blood 2022-01-05 21:03:00 84 mm[Hg] [facility] pressure [facility] Branch Heart rate 2022-01-05 21:03:00 76 /min [facility] Body height 2022-01-05 21:03:00 152.4 cm [facility] Body weight 2022-01-05 21:03:00 40.824 kg [facility] BMI 2022-01-05 21:03:00 17.58 kg/m2 [facility] Oxygen saturation 2022-01-05 21:03:00 100 /min [facility] in Arterial blood Medical Br anch by Pulse oximetry BP Diastolic 2022-01-04 00:00:00 71 mm[Hg] [facility] Height 2022-01-04 00:00:00 60 [in_i] [facility] BMI (Body Mass 2022-01-04 00:00:00 18.4 kg/m2 [facility] Medical Index) Group BP Systolic 2022-01-04 00:00:00 117 mm[Hg] [facility] Body Weight 2022-01-04 00:00:00 1504 [oz_av] [facility] BP Diastolic 2021-10-23 00:00:00 74 mm[Hg] [facility] Height 2021-10-23 00:00:00 60 [in_i] [facility] BMI (Body Mass 2021-10-23 00:00:00 17.4 kg/m2 [facility] Medical Index) Group BP Systolic 2021-10-23 00:00:00 102 mm[Hg] [facility] Body Weight 2021-10-23 00:00:00 1428.8 [oz_av] [facility] BP Diastolic 2021-10-05 00:00:00 71 mm[Hg] [facility] Height 2021-10-05 00:00:00 60 [in_i] [facility] BMI (Body Mass 2021-10-05 00:00:00 16.9 kg/m2 [facility] Medical Index) Group BP Systolic 2021-10-05 00:00:00 103 mm[Hg] [facility] Body Weight 2021-10-05 00:00:00 1382[facility] BP Diastolic 2021-09-14 00:00:00 79 mm[Hg] [facility] Height 2021-09-14 00:00:00 60 [in_i] [facility] BMI (Body Mass 2021-09-14 00:00:00 [facility] BP Systolic 2021-09-14 00:00:00 112 mm[Hg] [facility] Body Weight 2021-09-14 00:00:00 1324.8 [facility] BP Systolic 2021-09-05 00:00:00 114 mm[Hg] [facility] Body Weight 2021-09-05 00:00:00 89.1 [lb_av] [facility] BP Diastolic 2021-09-05 00:00:00 76 mm[Hg] [facility] Height 2021-09-05 00:00:00 60 [in_i] [facility] BMI (Body Mass 2021-09-05 00:00:00 17.4 kg/m2 [facility] Medical Index) Group BP Diastolic 2021-07-27 00:00:00 78 mm[Hg] [facility] Height 2021-07-27 00:00:00 60 [in_i] [facility] BMI (Body Mass 2021-07-27 00:00:00 17.7 kg/m2 [facility] Medical Index) Group BP Systolic 2021-07-27 00:00:00 114 mm[Hg] [facility] Body Weight 2021-07-27 00:00:00 1448 [oz_av] [facility] BP Diastolic 2021-07-25 00:00:00 82 mm[Hg] [facility] Height 2021-07-25 00:00:00 60 [in_i] [facility] BMI (Body Mass 2021-07-25 00:00:00 17.9 kg/m2 [facility] Medical Index) Group BP Systolic 2021-07-25 00:00:00 116 mm[Hg] [facility] Body Weight 2021-07-25 00:00:00 91.5 [lb_av] [facility] BP Diastolic 2021-07-24 00:00:00 76 mm[Hg] [facility] Height 2021-07-24 00:00:00 60 [in_i] [facility] BMI (Body Mass 2021-07-24 00:00:00 17.8 kg/m2 [facility] Medical Index) Group BP Systolic 2021-07-24 00:00:00 112 mm[Hg] [facility] Body Weight 2021-07-24 00:00:00 1457.6 [oz_av] [facility] BP Diastolic 2021-07-12 00:00:00 76 mm[Hg] [facility] Height 2021-07-12 00:00:00 60 [in_i] [facility] BMI (Body Mass 2021-07-12 00:00:00 19.2 kg/m2 [facility] Medical Index) Group BP Systolic 2021-07-12 00:00:00 110 mm[Hg] [facility] Body Weight 2021-07-12 00:00:00 1576 [oz_av] [facility] BP Diastolic 2021-06-21 00:00:00 80 mm[Hg] [facility] Height 2021-06-21 00:00:00 60 [in_i] [facility] BMI (Body Mass 2021-06-21 00:00:00 18.4 kg/m2 [facility] Medical Index) Group BP Systolic 2021-06-21 00:00:00 108 mm[Hg] [facility] Body Weight 2021-06-21 00:00:00 1504 [oz_av] [facility] BP Diastolic 2021-06-02 00:00:00 73 mm[Hg] [facility] Height 2021-06-02 00:00:00 60 [in_i] [facility] BMI (Body Mass 2021-06-02 00:00:00 20.3 kg/m2 [facility] Medical Index) Group BP Systolic 2021-06-02 00:00:00 122 mm[Hg] [facility] Body Weight 2021-06-02 00:00:00 1664 [oz_av] [facility] BP Diastolic 2021-05-22 00:00:00 73 mm[Hg] [facility] Height 2021-05-22 00:00:00 60 [in_i] [facility] BMI (Body Mass 2021-05-22 00:00:00 19.5 kg/m2 [facility] Medical Index) Group BP Systolic 2021-05-22 00:00:00 112 mm[Hg] [facility] Body Weight 2021-05-22 00:00:00 1598.4 [oz_av] [facility] BP Diastolic 2021-05-09 00:00:00 75 mm[Hg] [facility] Height 2021-05-09 00:00:00 60 [in_i] [facility] BMI (Body Mass 2021-05-09 00:00:00 20 kg/m2 [facility] Medical Index) Group BP Systolic 2021-05-09 00:00:00 122 mm[Hg] [facility] Body Weight 2021-05-09 00:00:00 1640 [oz_av] [facility] BP Diastolic 2021-03-23 00:00:00 69 mm[Hg] [facility] Height 2021-03-23 00:00:00 60 [in_i] [facility] BMI (Body Mass 2021-03-23 00:00:00 19.9 kg/m2 [facility] Medical Index) Group BP Systolic 2021-03-23 00:00:00 103 mm[Hg] [facility] Body Weight 2021-03-23 00:00:00 1627.2 [oz_av] [facility] BP Diastolic 2019-10-30 00:00:00 73 mm[Hg] [facility] Height 2019-10-30 00:00:00 61 [in_i] [facility] BMI (Body Mass 2019-10-30 00:00:00 17.4 kg/m2 [facility] Medical Index) Group BP Systolic 2019-10-30 00:00:00 105 mm[Hg] [facility] Body Weight 2019-10-30 00:00:00 91.9 [lb_av] [facility] BP Diastolic 2019-07-01 00:00:00 82 mm[Hg] [facility] Height 2019-07-01 00:00:00 61 [in_i] [facility] BMI (Body Mass 2019-07-01 00:00:00 17 kg/m2 [facility] Medical Index) Group BP Systolic 2019-07-01 00:00:00 119 mm[Hg] [facility] Body Weight 2019-07-01 00:00:00 90 [lb_av] [facility] BP Diastolic 2019-06-10 00:00:00 73 mm[Hg] [facility] Height 2019-06-10 00:00:00 61 [in_i] [facility] BMI (Body Mass 2019-06-10 00:00:00 18.9 kg/m2 [facility] Medical Index) Group BP Systolic 2019-06-10 00:00:00 111 mm[Hg] [facility] Body Weight 2019-06-10 00:00:00 100 [lb_av] [facility] BP Diastolic 2019-05-20 00:00:00 48 mm[Hg] [facility] Height 2019-05-20 00:00:00 61 [in_i] [facility] BMI (Body Mass 2019-05-20 00:00:00 18.9 kg/m2 [facility] Medical Index) Group BP Systolic 2019-05-20 00:00:00 117 mm[Hg] [facility] Body Weight 2019-05-20 00:00:00 100.1 [lb_av] [facility] BP Diastolic 2019-04-28 00:00:00 73 mm[Hg] [facility] Height 2019-04-28 00:00:00 61 [in_i] [facility] BMI (Body Mass 2019-04-28 00:00:00 19.9 kg/m2 [facility] Medical Index) Group BP Systolic 2019-04-28 00:00:00 140 mm[Hg] [facility] Body Weight 2019-04-28 00:00:00 105.4 [lb_av] [facility] BP Diastolic 2019-04-24 00:00:00 57 mm[Hg] [facility] Height 2019-04-24 00:00:00 61 [in_i] [facility] BMI (Body Mass 2019-04-24 00:00:00 20 kg/m2 [facility] Medical Index) Group BP Systolic 2019-04-24 00:00:00 120 mm[Hg] [facility] Body Weight 2019-04-24 00:00:00 105.7 [lb_av] [facility] BP Diastolic 2019-04-23 00:00:00 70 mm[Hg] [facility] Height 2019-04-23 00:00:00 61 [in_i] [facility] BMI (Body Mass 2019-04-23 00:00:00 20.1 kg/m2 [facility] Medical Index) Group BP Systolic 2019-04-23 00:00:00 110 mm[Hg] [facility] BP Diastolic 2019-04-16 00:00:00 66 mm[Hg] [facility] Height 2019-04-16 00:00:00 61 [in_i] [facility] BMI (Body Mass 2019-04-16 00:00:00 19.8 kg/m2 [facility] Medical Index) Group BP Systolic 2019-04-16 00:00:00 102 mm[Hg] [facility] Body Weight 2019-04-16 00:00:00 104.6 [lb_av] [facility] BP Diastolic 2019-04-02 00:00:00 70 mm[Hg] [facility] Height 2019-04-02 00:00:00 61 [in_i] [facility] BMI (Body Mass 2019-04-02 00:00:00 19.9 kg/m2 [facility] Medical Index) Group BP Systolic 2019-04-02 00:00:00 122 mm[Hg] [facility] Body Weight 2019-04-02 00:00:00 105.5 [lb_av] [facility] BP Diastolic 2019-03-30 00:00:00 74 mm[Hg] [facility] Height 2019-03-30 00:00:00 61 [in_i] [facility] BMI (Body Mass 2019-03-30 00:00:00 19.8 kg/m2 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) Group BP Systolic 2019-03-30 00:00:00 118 mm[Hg] [facility] Body Weight 2019-03-30 00:00:00 105 [lb_av] [facility] BP Diastolic 2019-03-27 00:00:00 76 mm[Hg] [facility] Height 2019-03-27 00:00:00 61 [in_i] [facility] BMI (Body Mass 2019-03-27 00:00:00 19.9 kg/m2 [facility] Medical Index) Group BP Systolic 2019-03-27 00:00:00 121 mm[Hg] [facility] Body Weight 2019-03-27 00:00:00 105.3 [lb_av] [facility] BP Diastolic 2019-03-09 00:00:00 72 mm[Hg] [facility] Height 2019-03-09 00:00:00 61 [in_i] [facility] BMI (Body Mass 2019-03-09 00:00:00 19.6 kg/m2 [facility] Medical Index) Group BP Systolic 2019-03-09 00:00:00 116 mm[Hg] [facility] Body Weight 2019-03-09 00:00:00 103.6 [lb_av] [facility] Height 2019-03-04 00:00:00 61 [in_i] [facility] Procedures Procedure Date / Time Performing Clinician Source Performed EXTERNAL PROVIDER RECORDS 2022-05-03 06:01:00 Doctor Unassigned, [facility] Removal of Tonsils 2021-08-14 00:00:00 [facility] XR, toe(s), 2 or more 2021-05-22 00:00:00 [facility] Medical view Group US(FBP)W/0 NON STRESS 2019-04-28 00:00:00 [facility] TEST [facility] US(FBP)W/0 NON STRESS 2019-04-23 00:00:00 [facility] TEST Group US, obstetric, limited 2019-04-16 00:00:00 [facility] US(FBP)W/0 NON STRESS 2019-04-16 00:00:00 [facility] TEST Group US(FBP)W/0 NON STRESS 2019-04-02 00:00:00 [facility] TEST Group non-stress test 2019-04-02 00:00:00 [facility] US(FBP)W/0 NON STRESS 2019-03-30 00:00:00 [facility] Medical TEST Group non-stress test 2019-03-30 00:00:00 [facility] US, obstetric, limited 2019-03-27 00:00:00 [facility] US(FBP)W/0 NON STRESS 2019-03-27 00:00:00 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 REAL TIME WITH Group IMAGE DOC, AND MATERNAL EVAL PLUS DETAILED ANATOMIC EXAMINATION, TRANSABDOMINAL APPROACH; SINGLE OR FIRST GESTATION Tubal Ligation [facility] Plan of Care Planned Activity Planned Date Details Comments Source Diagnostic Test 2022-05-18 rapid influenza [facility] Pending 00:00:00 virus A + B and SARS Group CoV + SARS CoV 2 Ag panel, [place], upper respiratory specimen [code = rapid influenza virus A + B and SARS CoV + SARS CoV 2 Ag panel, [place], upper respiratory specimen] Future Scheduled Test 2022-04-05 COVID-19 VACCINE [facility] 16:41:03 (#1) [code = COVID-19 VACCINE (#1)] Future Scheduled Test 2022-04-05 Screening for [facility] 16:41:03 Chlamydia trachomatis (procedure) [code = 562215702] Future Scheduled Test 2022-04-05 Screening for [facility] 16:41:03 malignant neoplasm of cervix (procedure) [code = 569707263] Future Scheduled Test 2022-04-05 INFLUENZA VACCINE [facility] 16:41:03 [code = INFLUENZA VACCINE] Future Scheduled Test 2022-04-05 COVID-19 VACCINE [facility] 16:41:03 (#1) [code = COVID-19 VACCINE (#1)] Future Scheduled Test 2022-04-05 Screening for [facility] 16:41:03 Chlamydia trachomatis (procedure) [code = 223879823] Future Scheduled Test 2022-04-05 Screening for [facility] 16:41:03 malignant neoplasm of cervix (procedure) [code = 985924641] Future Scheduled Test 2022-04-05 INFLUENZA VACCINE [facility] 16:41:03 [code = INFLUENZA VACCINE] Future Scheduled Test 2022-04-05 COVID-19 VACCINE [facility] 16:41:03 (#1) [code = COVID-19 VACCINE (#1)] Future Scheduled Test 2022-04-[address] [facility] 16:41:03 Chlamydia trachomatis (procedure) [code = 292929343] Future Scheduled Test 2022-04-[address] [facility] 16:41:03 malignant neoplasm of cervix (procedure) [code = 264906447] Future Scheduled Test 2022-04-05 INFLUENZA VACCINE [facility] 16:41:03 [code = INFLUENZA VACCINE] Future Scheduled Test 2022-04-05 COVID-19 VACCINE [facility] 16:41:03 (#1) [code = COVID-19 VACCINE (#1)] Future Scheduled Test 2022-04-[address] [facility] 16:41:03 Chlamydia trachomatis (procedure) [code = 319063496] Future Scheduled Test 2022-04-05 Screening for [facility] 16:41:03 malignant neoplasm of cervix (procedure) [code = 170692807] Future Scheduled Test 2022-04-05 INFLUENZA VACCINE [facility] 16:41:03 [code = INFLUENZA VACCINE] Future Scheduled Test 2022-04-05 COVID-19 VACCINE [facility] 16:41:03 (#1) [code = COVID-19 VACCINE (#1)] Future Scheduled Test 2022-04-[address] [facility] 16:41:03 Chlamydia trachomatis (procedure) [code = 402326306] Future Scheduled Test 2022-04-05 Screening for [facility] 16:41:03 malignant neoplasm of cervix (procedure) [code = 701142058] Future Scheduled Test 2022-04-05 INFLUENZA VACCINE [facility] 16:41:03 [code = INFLUENZA VACCINE] Future Scheduled Test 2022-04-05 COVID-19 VACCINE [facility] 16:41:03 (#1) [code = COVID-19 VACCINE (#1)] Future Scheduled Test 2022-04-[address] [facility] 16:41:03 Chlamydia trachomatis (procedure) [code = 155795875] Future Scheduled Test 2022-04-05 Screening for [facility] 16:41:03 malignant neoplasm of cervix (procedure) [code = 253449830] Future Scheduled Test 2022-04-05 INFLUENZA VACCINE [facility] 16:41:03 [code = INFLUENZA VACCINE] Future Scheduled Test 2022-02-15 HEPATITIS B VACCINES [facility] 18:27:03 (1 of 3 - 3-dose series) [code = HEPATITIS B VACCINES (1 of 3 - 3-dose series)] Future Scheduled Test 2022-02-15 COVID-19 VACCINE [facility] 18:27:03 (#1) [code = COVID-19 VACCINE (#1)] Future Scheduled Test 2022-02-15 Screening for [facility] 18:27:03 Chlamydia trachomatis (procedure) [code = 431640643] Future Scheduled Test 2022-02-15 Screening for [facility] 18:27:03 malignant neoplasm of cervix (procedure) [code = 800770869] Future Scheduled Test 2022-02-15 INFLUENZA VACCINE [facility] 18:27:03 [code = INFLUENZA VACCINE] Future Scheduled Test 2022-01-13 IMM Influenza [facility] 00:00:00 Seasonal (>/= 19 yrs) [code = IMM Influenza Seasonal (>/= 19 yrs)] Future Scheduled Test 2022-01-13 IMM [facility]enza [facility] 00:00:00 Seasonal (>/= 19 yrs) [code = IMM Influenza Seasonal (>/= 19 yrs)] Future Scheduled Test 2022-01-13 IMM Influenza [facility] 00:00:00 Seasonal (>/= 19 yrs) [code = IMM Influenza Seasonal (>/= 19 yrs)] Future Scheduled Test 2022-01-13 IMM Influenza [facility] 00:00:00 Seasonal (>/= 19 yrs) [code = IMM Influenza Seasonal (>/= 19 yrs)] Future Scheduled Test 2022-01-13 IMM Influenza [facility] 00:00:00 Seasonal (>/= 19 yrs) [code = IMM Influenza Seasonal (>/= 19 yrs)] Future Scheduled Test 2022-01-13 IMM Influenza [facility] 00:00:00 Seasonal (>/= 19 yrs) [code = IMM Influenza Seasonal (>/= 19 yrs)] Future Scheduled Test 2022-01-13 IMM Influenza [facility] 00:00:00 Seasonal (>/= 19 yrs) [code = IMM Influenza Seasonal (>/= 19 yrs)] Future Scheduled Test 2021-12-14 HEPATITIS B VACCINES [facility] 04:05:20 (1 of 3 - 3-dose series) [code = HEPATITIS B VACCINES (1 of 3 - 3-dose series)] Future Scheduled Test 2021-12-14 COVID-19 VACCINE [facility] 04:05:20 (#1) [code = COVID-19 VACCINE (#1)] Future Scheduled Test 2021-12-14 Screening for [facility] 04:05:20 Chlamydia trachomatis (procedure) [code = 390521526] Future Scheduled Test 2021-12-14 Screening for [facility] 04:05:20 malignant neoplasm of cervix (procedure) [code = 737818133] Future Scheduled Test 2021-12-14 INFLUENZA VACCINE [facility] 04:05:20 [code = INFLUENZA VACCINE] Future Scheduled Test 2021-01-13 IMM Influenza [facility] [...] malignant neoplasm of cervix (procedure) [code = 154917569] Future Scheduled Test 2018 Screening for [facility] 00:00:00 malignant neoplasm of cervix (procedure) [code = 798610777] Future Scheduled Test 2018 Screening for [facility] 00:00:00 malignant neoplasm of cervix (procedure) [code = 317130885] Future Scheduled Test 2018 Screening for [facility] 00:00:00 malignant neoplasm of cervix (procedure) [code = 256009497] Future Scheduled Test 2018 Screening for [facility] 00:00:00 malignant neoplasm of cervix (procedure) [code = 321462277] Future Scheduled Test 2018 Screening for [facility] 00:00:00 malignant neoplasm of cervix (procedure) [code = 347688189] Future Scheduled Test 2018 Screening for [facility] 00:00:00 malignant neoplasm of cervix (procedure) [code = 151460803] Future Scheduled Test 2018 Screening for [facility] 00:00:00 malignant neoplasm of cervix (procedure) [code = 238507324] Future Scheduled Test 2018 Screening for [facility] 00:00:00 malignant neoplasm of cervix (procedure) [code = 718187717] Future Scheduled Test 2009 COVID-19 Vaccine (1) [facility] 00:00:00 [code = COVID-19 Vaccine (1)] Future Scheduled Test 2009 COVID-19 Vaccine (1) [facility] 00:00:00 [code = COVID-19 Vaccine (1)] Future Scheduled Test 1998-02-26 COVID-19 Vaccine [facility] 00:00:00 (#1) [code = COVID-19 Vaccine (#1)] Future Scheduled Test 1998-02-26 COVID-19 Vaccine [facility] 00:00:00 (#1) [code = COVID-19 Vaccine (#1)] Future Scheduled Test 1998-02-26 COVID-19 Vaccine [facility] 00:00:00 (#1) [code = COVID-19 Vaccine (#1)] Future Scheduled Test 1998-02-26 COVID-19 Vaccine [facility] 00:00:00 (#1) [code = COVID-19 Vaccine (#1)] Future Scheduled Test 1998-02-26 COVID-19 Vaccine [facility] 00:00:00 (#1) [code = COVID-19 Vaccine (#1)] Future Scheduled Test 1998-02-26 COVID-19 Vaccine [facility] 00:00:00 (#1) [code = COVID-19 Vaccine (#1)] Future Scheduled Test 1998-02-26 COVID-19 Vaccine [facility] 00:00:00 (#1) [code = COVID-19 Vaccine (#1)] Future Scheduled Test 1997 Fluoride Varnish [facility] 00:00:00 [code = Fluoride Varnish] Future Scheduled Test Screening for [facility] malignant neoplasm of cervix (procedure) [code = 344754025] Future Scheduled Test INFLUENZA VACCINE [facility] [code = INFLUENZA VACCINE] Future Scheduled Test CHLAMYDIA SCREENING [facility] [code = CHLAMYDIA SCREENING] Future Scheduled Test COVID-19 VACCINE (1) [facility] [code = COVID-19 VACCINE (1)] Future Appointment 2022-11-11 Tori Gibbons, [address] M [facility] 00:00:00 [facility] [address]; , [place] [address] Instructions [facility] Group Encounters Start End Encounter Admission Attending Care Care Encounter Source Date/Time Date/Time Type Type Clinicians Facility Department ID 2022-03-02 Inpatient TEXANA TEX[place] [id number] [place] 13:57:04 [id number] [place] 2022-01-22 Outpatient [facility] [id number] [place] 15:22:36 [id number] [facility] 2022-01-14 Outpatient [facility] [id number] [place] 19:22:32 [id number] [facility] 2022-01-11 Outpatient [facility] [id number] [place] 15:52:30 [id number] [facility] 2022-05-31 2022-05-31 Emergency ER Catanescu, [facility] [id number] [place] 21:05:00 21:15:00 Jocelin -[id number] [facility] 2022-05-28 2022-05-28 Emergency ER Kaye, [facility] [id number] [place] 21:28:00 23:37:00 Klarissa -[id number] [facility] 2022-05-18 2022-05-18 Tori SANDY [place] - [id number] [facility] 00:00:00 00:00:00 Riccardo Andrade Medical DONOR TECHNICIAN: [address] [facility] [address], [place] [address] , Ph. 2022-05-17 2022-05-17 Telephone Josh [facility] [id number] [facility] 00:00:00 00:00:00 [facility] [id number] itAbe [id number] Eliel as TERESE?BLEA [phone] Ak kellie[address] MEDICAL OFFICE BUILDING 2022-05-15 2022-05-15 Tori S[place]Y [place] - [id number] M [facility] 00:00:00 00:00:00 Riccardo Andrade Medical DONOR TECHNICIAN: [address] [facility] [address], [place] [address] , Ph. 2022-05-03 2022-05-03 Orders Doctor FISHER [id number] [facility] 00:00:00 00:00:00 Only Unassigned, [place] [id number] ity [facility] [id number] Eliel as [phone] [address] 2022-03-16 2022-03-16 Outpatient LUKAS KONG [facility] [id number] [facility] 14:00:00 14:00:00 LUKAS CALHOUN ila [facility] 2022-02-23 2022-02-23 [place] [id number] [place] 00:00:00 00:00:00 0131 [facility] 2022-02-23 2022-02-23 Outpatient [place] [id number] [place] 00:00:00 00:00:00 0203 [facility] 2022-02-20 2022-02-20 [place] [id number] [place] 00:00:00 00:00:00 1108 [facility] 2022-02-20 2022-02-20 Premium Josh [facility] [id number] Univers 00:00:00 00:00:00 [facility] [id number] ity [facility] [id number] Eliel as TERESE?BLEA [phone] [address] MEDICAL OFFICE BUILDING 2022-02-20 2022-02-20 Tori [facility] [place] - [id number] M at[place]or 00:00:00 00:00:00 Lizbet Bean Medical Medical DONOR TECHNICIAN: [address] [facility] [address], [place] [address] , Ph. 2022-02-09 2022-02-09 Outpatient [facility] [id number] [place] 00:00:00 00:00:00 1028 Medical Group 2022-01-24 2022-01-24 Outpatient [facility] [id number] [place] 08:45:00 08:45:00 Health 2022-01-22 2022-01-22 Telephone Josh [facility] [id number] Univers 00:00:00 00:00:00 [facility] [id number] ity of [place] [id number] Eliel as TERESE?BLEA [id number] [address] MEDICAL OFFICE BUILDING 2022-01-17 2022-01-17 Outpatient Elin [facility] [id number] [place] 00:00:00 00:00:00 1005 Medical Group 2022-01-17 2022-01-17 Tori [facility] [place] - [id number] M [facility] 00:00:00 00:00:00 [facility]OR TECHNICIAN: [address] [facility] [address], [place] [address] , Ph. 2022-01-10 2022-01-10 Telephone Josh [facility] [id number] [id number] [facility] 00:00:00 00:00:00 [facility] [id number] ity of [place] [id number] Eliel as TERESE?BLEA [phone] [address] MEDICAL OFFICE [facility] 2022-01-05 2022-01-05 [facility] 1.2.840.114 [id number] [facility] 16:00:00 16:52:54 Visit [facility] [id number] ity of [place] [id number] Eliel as TERESE?BLEA [phone] Ak kellie[address] MEDICAL OFFICE [facility] 2022-01-05 2022-01-05 Outpatient LUKAS KONG [facility] [id number] Univers 16:00:00 16:52:54 JOSH, [facility] 2022-01-05 2022-01-05 Letter Josh [facility] [id number] [id number] Univers 00:00:00 00:00:00 (Out) [facility] [id number] [facility] [id number] Eliel as TERESE?BLEA [phone] Me [address] MEDICAL OFFICE BUILDING 2022-01-04 2022-01-04 Outpatient Edwige_Gemma [facility] [id number] [place] 00:00:00 00:00:00 09 Medical Group 2022-01-04 2022-01-04 Tori [facility] [place] - [id number] M [facility] 00:00:00 00:00:00 Lizbet Bean Medical Medical DONOR TECHNICIAN: [address] [facility] [address], [place] [address] , Ph. 2021-10-23 2021-10-23 Outpatient EdwigeMagno [facility] [id number] [place] 02:43:00 02:43:00 0711 [facility] 2021-10-23 2021-10-23 Tori [facility] [place] - [id number] [place] [facility] 00:00:00 00:00:00 Lizbet Bean Medical Medical DONOR TECHNICIAN: [address] [facility] [address], [place] [address] , Ph. 2021-10-05 2021-10-05 Outpatient OliverGemma [facility] [id number] [place] 09:37:00 09:37:00 0623 [facility] 2021-10-05 2021-10-05 Outpatient BLANE GIBBONS [facility] [id number] [place] 09:34:00 09:34:00 TORI [id number] [facility] 2021-10-05 2021-10-05 Tori DU [place] - [id number] M [facility] 00:00:00 00:00:00 Lizbet Bean Medical Medical DONOR TECHNICIAN: [address] [facility] [address], [place] [address] , Ph. 2021-10-04 2021-10-04 Outpatient Hawkins[facility]M [facility] [id number] -2021 [place] 04:46:00 04:46:00 0622 Medical [facility] 2021-09-14 2021-09-14 Outpatient Yan_W [facility] [id number] [place] 04:46:00 04:46:00 0602 Medical [facility] 2021-09-14 2021-09-14 Maritza [facility] [place] - [id number] [place] 00:00:00 00:00:00 Discovery [facility] [address] [address] , Ph. 2021-09-05 2021-09-05 Outpatient Yan_W [facility] [id number] [place] 10:23:00 10:23:00 0524 [facility] 2021-09-05 2021-09-05 Loki Ramos [facility] [place] - [id number] [place] 00:00:00 00:00:00 : Harika Daly [facility] [address] [place] [address], Otolaryngol [facility] [address] , Ph. 2021-08-24 2021-08-24 Outpatient Yan_W [facility] [id number] [place] 10:31:00 10:31:00 0512 Medical [facility] 2021-08-19 2021-08-19 Emergency ER Langhorrossana, [facility] [id number] [place] 12:57:00 13:44:00 [place] -[id number] [facility] 2021-08-14 2021-08-14 Outpatient BLANE RamosRonniene [facility] [id number] [place] 07:27:00 07:27:00 -[id number] [facility] 2021-08-14 2021-08-14 Outpatient Mathewkins_M [facility] [id number] -2021 [place] 04:26:00 04:26:00 0502 [facility] 2021-08-14 2021-08-14 Outpatient Mathewkins[facility]M [facility] [id number] -2021 [place] 04:26:00 04:26:00 0509 [facility] 2021-07-27 2021-07-27 Outpatient Hawkins_M MMG [facility] [id number] -2021 [place] 12:50:00 12:50:00 0414 [facility] 2021-07-27 2021-07-27 Outpatient BLANE GIBBONS, [facility] [id number] [place] 12:16:00 12:16:00 TORI -[id number] [facility] 2021-07-27 2021-07-27 Outpatient AMBREEN_BEENA [facility] [id number] [place] 02:53:00 02:53:00 HAN 0414 [facility] 2021-07-27 2021-07-27 Tori SANDY [place] - [id number] M [facility] 00:00:00 00:00:00 Lizbet Daly [facility] DONOR TECHNICIAN: [address] [facility] [address], [place] [address] , Ph. 2021-07-25 2021-07-25 Outpatient Yan_W [facility] [id number] [place] 11:17:00 11:17:00 0412 Medical Group 2021-07-25 2021-07-25 Outpatient Yan_W [facility] [id number] [place] 11:17:00 11:17:00 0413 Medical Group 2021-07-25 2021-07-25 Loki Ramos MM [place] - [id number] [place] 00:00:00 00:00:00 MD: Harika Daly [facility], [facility] [address], Otolaryngol ID harryJAZZ [address] , Ph. 2021-07-24 2021-07-24 Outpatient Mathewkins_M [facility] [id number] -2021 [place] 02:56:00 02:56:00 0411 Medical Group 2021-07-24 2021-07-24 Tori MMG [place] - [id number] [place] [facility] 00:00:00 00:00:00 Lizbet Bean Medical Medical DONOR TECHNICIAN: [address] [facility] [address], [place] [address] , Ph. 2021-07-12 2021-07-12 Outpatient Hawkins_M MMG MMG [id number] -2021 [place] 03:56:00 03:56:00 0330 Medical Group 2021-07-12 2021-07-12 Outpatient Hawkins_M MMG MMG [id number] [place] 03:56:00 03:56:00 0331 Medical Group 2021-07-12 2021-07-12 Tori MMG [place] - [id number] [place] [facility] 00:00:00 00:00:00 Lizbet Bean Medical Medical DONOR TECHNICIAN: [address] [facility] [address], [place] [address] , Ph. 2021-06-21 2021-06-21 Outpatient Hawkins_M MMG MMG [id number] -2021 [place] 04:09:00 04:09:00 0309 Medical Group 2021-06-21 2021-06-21 Tori MMG [place] - [id number] [place] [facility] 00:00:00 00:00:00 Lizbet Bean Medical Medical DONOR TECHNICIAN: [address] [facility] [address], [place] [address] , Ph. 2021-06-02 2021-06-02 Outpatient Hawkins_M MMG MMG [id number] -2021 [place] 03:48:00 03:48:00 0218 Medical Group 2021-06-02 2021-06-02 Tori MMG [place] - [id number] [facility] 00:00:00 00:00:00 Lizbet Bean Medical Medical DONOR TECHNICIAN: [address] [facility] [address], [place] [address] , Ph. 2021-05-22 2021-05-22 [place] [id number] -2021 [place] 12:37:00 12:37:00 0207 Medical Group 2021-05-22 2021-05-22 Outpatient BLANE GIBBONS, [facility] [id number] [place] 12:36:00 12:36:00 [id number] [facility] 2021-05-22 2021-05-22 Tori [facility] [place] - [id number] M [place] 00:00:00 00:00:00 Lizbet Bean [facility] Medical DONOR TECHNICIAN: [address] [facility] [address], [place] [address] , Ph. 2021-05-10 2021-05-10 Outpatient LEANNREEN_BEENA IDISAIAH [place] [id number] -2021 [place] 05:02:00 05:02:00 JASPAL 0126 [facility] 2021-05-09 2021-05-09 [place] [id number] -2021 [place] 11:18:00 11:18:00 0125 Medical Group 2021-05-09 2021-05-09 Tori [place]Y [place] - [id number] [facility] 00:00:00 00:00:00 Lizbet Bean Medical Medical DONOR TECHNICIAN: [address] [facility] [address], [place] [address] , Ph. 2021-04-12 2021-04-12 [place] [id number] -2021 [place] 04:07:00 04:07:00 0124 [facility] 2021-04-12 2021-04-12 Outpatient Hawkins_M MMG MMG [id number] -2021 [place] 04:07:00 04:07:00 0121 [facility] 2021-03-23 2021-03-23 [place] [id number] -2020 [place] 04:37:00 04:37:00 1209 [facility] 2021-03-23 2021-03-23 [place] [id number] -2020 [place] 04:37:00 04:37:00 1216 Medical Group 2021-03-23 2021-03-23 [place] [id number] -2020 [place] 04:37:00 04:37:00 1228 [facility] 2021-03-23 2021-03-23 Tori [facility] [place] - [id number] M [facility] 00:00:00 00:00:00 Lizbet Daly [facility] DONOR TECHNICIAN: [address] [facility] [address], [place] [address] , Ph. 2020-12-27 2020-12-27 Emergency ER LOYD, [facility] [id number] [place] 15:00:00 15:30:00 NATHAN -[id number] [facility] 2020-09-06 2020-09-06 Emergency ER SAIFI, [facility] [id number] [place] 22:30:00 23:52:00 MADAN -[id number] [facility] 2020-05-19 2020-05-19 Outpatient EL EDWIGE, [facility] [id number] [place] 15:17:00 15:17:00 TORI -[id number] [facility] 2020-05-19 2020-05-19 Outpatient Hawkins_M MMG [facility] [id number] -2020 [place] 03:02:00 03:02:00 0209 [facility] 2020-05-19 2020-05-19 [place] [id number] -2020 [place] 03:02:00 03:02:00 0224 [facility] 2020-05-19 2020-05-19 Outpatient Hawkins_M MMG MMG [id number] -2020 [place] 03:02:00 03:02:00 0204 [facility] 2020-05-18 2020-05-18 Outpatient Rutledge_L MMG MMG [id number] [place] 03:00:00 03:00:00 0203 Medical Group 2020-03-02 2020-03-02 Outpatient Rutledge_L MMG MMG [id number] [place] 02:24:00 02:24:00 1118 [facility] 2020-01-29 2020-01-29 Outpatient BLANE Laguna, [facility] [id number] [place] 14:53:00 14:53:00 Anabel -[id number] [facility] 2020-01-21 2020-01-21 Outpatient BLANE Laguna, [facility] [id number] [place] 11:41:00 11:41:00 Anabel -[id number] [facility] 2020-01-08 2020-01-08 Outpatient AMBREEN_FAR [facility] [id number] [place] 01:41:00 01:41:00 HANA 0925 [facility] 2020-01-08 2020-01-08 Outpatient AMBREEN_FAR [facility] [id number] [place] 01:41:00 01:41:00 HANA 1012 [facility] 2020-01-08 2020-01-08 Outpatient AMBREEN_FAR [facility] [id number] [place] 01:41:00 01:41:00 HANA 1209 [facility] 2019-12-23 2019-12-23 Outpatient Rutledge_L MMG MMG [id number] [place] 12:21:00 12:21:00 1008 Medical Group 2019-10-31 2019-10-31 Outpatient Rutledge_L MMG MMG [id number] [place] 07:51:00 07:51:00 0718 [facility] 2019-10-30 2019-10-30 Outpatient BLANE Hernadez, [facility] [id number] [place] 15:52:00 15:52:00 Luis Felipe -[id number] [facility] 2019-10-30 2019-10-30 Outpatient Rutledge_L MMG MMG [id number] [place] 04:04:00 04:04:00 716 [facility] 2019-10-30 2019-10-30 Luis Felipe JADE [place] - [id number] M [facility] 00:00:00 00:00:00 Discovery alida Hernadez MD: 600 [facility] [address], [place] [address] , Ph. [phone] 2019-09-21 2019-09-21 Emergency ER MENESES, [facility] [id number] [place] 18:37:00 19:38:00 CEASAR -[id number] [facility] 2019-09-20 2019-09-21 Emergency ER GIMICHELLEE, [facility] [id number] [place] 23:30:00 00:21:00 EMILY -[id number] [facility] 2019-09-11 2019-09-11 Emergency ER NIHARIKA, [facility] [id number] [place] 18:04:00 19:02:00 ENE -[id number] calos esquivel [facility] 2019-09-02 2019-09-02 Outpatient Rutledge_L MMG MMG [id number] [place] 05:24:00 05:24:00 0520 [facility] 2019-09-02 2019-09-02 Outpatient Rutledge_L MMG MMG [id number] [place] 05:24:00 05:24:00 0616 [facility] 2019-09-02 2019-09-02 Outpatient Rutledge_L MMG MMG [id number] [place] 05:24:00 05:24:00 0707 [facility] 2019-09-02 2019-09-02 Outpatient Rutledge_L MMG MMG [id number] [place] 05:24:00 05:24:00 0716 [facility] 2019-07-07 2019-07-07 Outpatient Rutledge_L MMG MMG [id number] [place] 09:58:00 09:58:00 0324 [facility] 2019-07-07 2019-07-07 Outpatient Rutledge_L MMG MMG [id number] [place] 09:58:00 09:58:00 0326 [facility] 2019-07-01 2019-07-01 Outpatient Rutledge_L MM[facility] MMG [address] [place] 08:57:00 08:57:00 0318 [facility] 2019-07-01 2019-07-01 Anabel MMG [place] - [id number] M [place] 00:00:00 00:00:00 George [facility] toy MD: 600 [facility] [address], [place] [address] , Ph. [phone] 2019-06-11 2019-06-11 Outpatient Rutledge_L MMG MMG [address] [place] 07:31:00 07:31:00 0227 [facility] 2019-06-11 2019-06-11 Outpatient EL Luz Elena, [facility] [id number] [place] 06:04:00 06:04:00 Anabel -[id number] [facility] 2019-06-10 2019-06-10 Outpatient Rutledge_L MMG MMG [address] [place] 01:13:00 01:13:00 0226 [facility] 2019-06-10 2019-06-10 Anabel MMG [place] - [id number] M [place] 00:00:00 00:00:00 George [facility] MD: [address] [address] , Ph. [phone] 2019-06-09 2019-06-09 Outpatient Rutledge_L MMG MMG 5268 [place] 10:05:00 10:05:00 0225 [facility] 2019-05-26 2019-05-26 Outpatient Rutledge_L MMG MMG 5268 [place] 10:08:00 10:08:00 0218 [facility] 2019-05-24 2019-05-24 Outpatient Rutledge_L MMG MMG 5268 [place] 01:23:00 01:23:00 0209 [facility] 2019-05-20 2019-05-20 Outpatient Rutledge_L MMG MMG 5268 [place] 04:23:00 04:23:00 0205 [facility] 2019-05-20 2019-05-20 Anabel MMG [place] - [id number] M [place] 00:00:00 00:00:00 George [facility] toy MD: [address] [place] [address] , Ph. [phone] 2019-05-15 2019-05-15 Outpatient [facility]_L MM[facility] MMG 5268 [place] 10:18:00 10:18:00 0204 [facility] 2019-05-12 2019-05-12 Outpatient Rutledge_L MMG MMG 5268 [place] 02:38:00 02:38:00 0128 [facility] 2019-05-02 2019-05-02 Outpatient [facility]_L MMG MMG 5268 [place] 10:43:00 10:43:00 0118 [facility] 2019-04-30 2019-05-01 Inpatient BLANE Luz Elena, [facility] [id number] [place] 05:25:00 09:45:00 Anabel -[id number] [facility] 2019-04-28 2019-04-28 Outpatient Rutledge_L MMG MMG 5268 [place] 11:48:00 11:48:00 0114 [facility] 2019-04-28 2019-04-28 Luis Felipe MMG [place] - [id number] [place] 00:00:00 00:00:00 Discovery alida Hernadez MD: [address] [place] [address] , Ph. [phone] 2019-04-27 2019-04-27 Outpatient [facility]_L MM[facility] MMG 5268 [place] 11:34:00 11:34:00 0113 [facility] 2019-04-26 2019-04-26 Outpatient [facility]_L MMG MMG 5268 [place] 12:05:00 12:05:00 0112 [facility] 2019-04-24 2019-04-24 Outpatient BLANE STRANGE, [facility] [id number] [place] 16:24:00 16:24:00 HARPER -[id number] [facility] 2019-04-24 2019-04-24 Outpatient [facility]_L MMG MMG [address] [place] 04:21:00 04:21:00 0110 [facility] 2019-04-24 2019-04-24 Harper Burrisn MM [place] - [id number] [place] 00:00:00 00:00:00 Discovery alida Strange NP: [address] [place] [address] , Ph. [phone] 2019-04-23 2019-04-23 Outpatient [facility]_L MM[facility] MMG [address]268 [place] 12:43:00 12:43:00 0109 [facility] 2019-04-23 2019-04-23 Luis Felipe MM [place] - [id number] [place] 00:00:00 00:00:00 Discovery alida Hernadez MD: [address] [place] [address] , Ph. [phone] 2019-04-19 2019-04-19 Outpatient [facility]_L MMG MMG [id number] [place] 09:06:00 09:06:00 0105 [facility] 2019-04-19 2019-04-19 Outpatient Rutledge_L MMG MMG [address] [place] 09:06:00 09:06:00 0108 [facility] 2019-04-16 2019-04-16 Outpatient Rutledge_L MMG MMG 5268 [place] 05:03:00 05:03:00 0102 [facility] 2019-04-16 2019-04-16 Outpatient Rutledge_L MMG MMG 5268 [place] 05:03:00 05:03:00 0103 [facility] 2019-04-16 2019-04-16 Luis Felipe MM [place] - [id number] M [place] 00:00:00 00:00:00 Discovery alida Hernadez MD: [address] [place] [address] , Ph. [phone] 2019-04-02 2019-04-02 Anabel SANDY [place] - [id number] [place] 00:00:00 00:00:00 George [facility] toy MD: [address] [address] , Ph. [phone] 2019-03-30 2019-03-30 Anabel MM [place] - [id number] [place] 00:00:00 00:00:00 George Hoffman Medical Medicalvin yeager MD: [address] [address] , Ph. [phone] 2019-03-27 2019-03-27 Anabel [facility] [place] - [id number] M [place] 00:00:00 00:00:00 George [facility] MD: [address] [place] [address] , Ph. [phone] 2019-03-09 2019-03-09 Outpatient BLANE STRANGE [facility] [id number] [place] 11:48:00 11:48:00 HARPER [id number] alida [facility] 2019-03-09 2019-03-09 Harper Ewing [facility] [place] - [id number] [place] 00:00:00 00:00:00 Discovery alida Strange WHNP: [address] [place] [address] , Ph. [phone] 2019-03-04 2019-03-04 Outpatient BLANE Hernadez [facility] [id number] [place] 15:28:00 15:28:00 Luis Felipe [id number] alida [facility] 2019-03-04 2019-03-04 Luis Felipe [facility] [place] - [id number] M [place] 00:00:00 00:00:00 Discovery alida Hernadez MD: [address] [place] [address] , Ph. [phone] 2018-10-11 2018-10-11 Emergency ER EVA [facility] [id number] [place] 11:26:00 13:55:00 JANNETH -[id number] [facility] 2018-08-09 2018-08-09 Emergency ER TIM, [facility] [id number] [place] 01:09:00 02:33:00 TAYLOR -[id number] [facility] 2018-04-10 2018-04-10 Emergency ER NASRA, [facility] [id number] [place] 16:01:00 17:47:00 SEKOU -[id number] [facility] 2016-12-27 2016-12-27 Emergency ER UGORKASSANDRA, [facility] [id number] [place] 18:24:00 22:22:00 CLELAMAR -[id number] [facility] 2016-07-24 2016-07-24 Emergency ER BA, ROS [facility] [id number] [place] 18:12:00 23:33:00 -[id number] [facility] 2016-07-10 2016-07-10 Emergency ER , [facility] [id number] [place] 03:44:00 06:04:00 WAS -[id number] [facility] 2016-06-11 2016-06-12 Emergency ER RACHANA, ROS [facility] [id number] [place] 22:13:00 01:55:00 -[id number] [facility] 2016-06-09 2016-06-09 Emergency ER LOYD, [facility] [id number] [place] 01:11:00 04:34:00 NATHAN -[id number] [facility] 2016-05-11 2016-05-11 Emergency ER UGORKASSANDRA, [facility] [id number] [place] 16:38:00 18:43:00 [facility] -[id number] [facility] Results Test Description Test Time Test Comments Results Result Comments Source Influenza virus A and B and SARS-CoV+SARS-CoV-2 (COVID -19) 2022-05-21 14:23:00 panel - Upper respiratory specimen by Rapid immunoassay Test Item Value Reference Range Interpretation Comme nts RAPID SARS COV (test code = RAPID SARS COV) negative RAPID FLU A (test code = RAPID FLU A) negative RAPID FLU B (test code = RAPID FLU B) negative [facility], [id number] 12:10:54 Test Item Value Reference Range Interpretation Comments Strep Result (test code = Strep positive Result) [facility], [id number] 12:10:54 Test Item Value Reference Range Interpretation Comments Strep Result (test code = Strep positive Result) [facility] and B and SARS-CoV+SARS-CoV-2 (COVID- 19) Ag panel - Upper respiratory specimen by Rapid [id number] 16:31:00 Test Item Value Reference Range Interpretation Comments RAPID SARS COV (test code = RAPID negative SARS COV) RAPID FLU A (test code = RAPID FLU negative A) RAPID FLU B (test code = RAPID FLU negative B) [facility], [id number] 16:06:15 Test Item Value Reference Range Interpretation Comments Test (test code = negative Test) [facility], [id number] 16:06:15 Test Item Value Reference Range Interpretation Comments Test (test code = negative Test) [facility] Reflex Culture panel - Urine 2021-10-05 07:44:00 Test Item Value Reference Range Interpretation Comments Color of Urine by Auto (test code lt. yellow = 06549-0) Appearance of Urine (test code = SL cloudy clear 5767-9) Glucose [Mass/volume] in Urine negative negative (test code = 2350-7) bilirubin, urine (test code = negative negative bilirubin, urine) ketone, urine (test code = negative negative ketone, urine) Specific gravity of Urine by 1.015 1.003-1.030 Automated test strip (test code = 12312-6) Hemoglobin [Presence] in Urine by small negative H Test strip (test code = 5794-3) pH of Urine (test code = 2756-5) 6.500 5-9 protein urine (UA) (test code = negative negative protein urine (UA)) Urobilinogen [Presence] in Urine 0.2 E.U./dL 0.2-1.0 (test code = 31085-7) Nitrite [Presence] in Urine by positive negative Test strip (test code = 5802-4) urine leukocyte esterase (test =1 negative H code = urine leukocyte esterase) Erythrocytes [Presence] in Urine =4-6 0-5 H (test code = 77775-8) WBC, urine (test code = WBC, =5-9 0-5 H urine) bacteria, urine (test code = full field none detect H bacteria, urine) Casts [#/area] in Urine sediment =2-5 none detect by Automated count (test code = 17557-0) urine culture added? (test code = yes urine culture added?) squamous epithelial cell urine =6-10 0-5 (test code = squamous epithelial cell urine) mucus, urine (test code = mucus, =1 none detect urine) [facility] W Auto Differential panel - [id number] 07:44:00 Test Item Value Reference Range Interpretation Comments white blood count (test code = 6.7 K/uL 4.0-11.5 white blood count) red blood count (test code = red 4.89 M/uL 3.80-5.20 blood count) hemoglobin (test code = 12.5 g/dL 10.5-15.7 hemoglobin) hematocrit (test code = 40.6 % 34.0-50.0 hematocrit) MCV [Entitic volume] (test code = 83.0 fL 86.0-100.0 L 37601-1) mean corpuscular hemoglobin (test 25.6 pg 26.2-33.4 [...] 44.4-80.1 leukocytes in Blood (test code = 21327-7) Immature granulocytes [#/volume] 0.01 K/uL 0.00-0.03 in Blood (test code = 46899-4) lymphocyte% (test code = 38.8 % 10.0-50.0 lymphocyte%) mono % (test code = mono %) 6.9 % 3.6-12.0 eos % (test code = eos %) 1.5 % 0.0-5.4 basophil % (test code = basophil 1.1 % 0.1-1.2 %) Band form neutrophils [#/volume] 3.43 K/uL 1.56-6.13 in Blood (test code = 30272-9) Lymphocytes [#/volume] in Specimen 2.58 K/uL 1.18-3.74 by Automated count (test code = 46934-9) mono # (test code = mono #) 0.46 K/uL 0.24-0.86 eos # (test code = eos #) 0.10 K/uL 0.04-0.36 basophil # (test code = basophil 0.07 K/uL 0.01-0.08 #) NRBC% (test code = NRBC%) 0 /100 WBC 0-0.2 NRBC# (test code = NRBC#) 0 K/uL [facility] 2000 panel - Serum or [...] Serum or Plasma (test code = 6768-6) [facility] 1996 panel - Serum or [id number] 07:44:00 Test Item Value Reference Range Interpretation Comments cholesterol level (test code = 145 mg/dL 150-200 L cholesterol level) triglycerides level (test code = 57 mg/dL <150 triglycerides level) HDL cholesterol (test code = HDL 66 mg/dL >65 cholesterol) LDL cholesterol direct (test code = 69 mg/dL <100 LDL cholesterol direct) cholesterol risk ratio (test code = 2.196 cholesterol risk ratio) [facility] complete W Reflex Culture panel - Urine 2021-10-05 07:44:00 Test Item Value Reference Range Interpretation Comments Color of Urine by Auto (test code lt. yellow = 75765-5) Appearance of Urine (test code = SL cloudy clear 5767-9) Glucose [Mass/volume] in Urine negative negative (test code = 2350-7) bilirubin, urine (test code = negative negative bilirubin, urine) ketone, urine (test code = negative negative ketone, urine) Specific gravity of Urine by 1.015 1.003-1.030 Automated test strip (test code = 66593-6) Hemoglobin [Presence] in Urine by small negative H Test strip (test code = 5794-3) pH of Urine (test code = 2756-5) 6.500 5-9 protein urine (UA) (test code = negative negative protein urine (UA)) Urobilinogen [Presence] in Urine 0.2 E.U./dL 0.2-1.0 (test code = 39212-4) Nitrite [Presence] in Urine by positive negative Test strip (test code = 5802-4) urine leukocyte esterase (test =1 negative H code = urine leukocyte esterase) Erythrocytes [Presence] in Urine =4-6 0-5 H (test code = 60469-5) WBC, urine (test code = WBC, =5-9 0-5 H urine) bacteria, urine (test code = full field none detect H bacteria, urine) Casts [#/area] in Urine sediment =2-5 none detect by Automated count (test code = 33727-7) urine culture added? (test code = yes urine culture added?) squamous epithelial cell urine =6-10 0-5 (test code = squamous epithelial cell urine) mucus, urine (test code = mucus, =1 none detect urine) [facility] W Auto Differential panel - [id number] 07:44:00 Test Item Value Reference Range Interpretation Comments white blood count (test code = 6.7 K/uL 4.0-11.5 white blood count) red blood count (test code = red 4.89 M/uL 3.80-5.20 blood count) hemoglobin (test code = 12.5 g/dL 10.5-15.7 hemoglobin) hematocrit (test code = 40.6 % 34.0-50.0 hematocrit) MCV [Entitic volume] (test code = 83.0 fL 86.0-100.0 L 86328-5) mean corpuscular hemoglobin (test 25.6 pg 26.2-33.4 [...] 44.4-80.1 leukocytes in Blood (test code = 38005-9) Immature granulocytes [#/volume] 0.01 K/uL 0.00-0.03 in Blood (test code = 30844-3) lymphocyte% (test code = 38.8 % 10.0-50.0 lymphocyte%) mono % (test code = mono %) 6.9 % 3.6-12.0 eos % (test code = eos %) 1.5 % 0.0-5.4 basophil % (test code = basophil 1.1 % 0.1-1.2 %) Band form neutrophils [#/volume] 3.43 K/uL 1.56-6.13 in Blood (test code = 42334-6) Lymphocytes [#/volume] in Specimen 2.58 K/uL 1.18-3.74 by Automated count (test code = 03003-7) mono # (test code = mono #) 0.46 K/uL 0.24-0.86 eos # (test code = eos #) 0.10 K/uL 0.04-0.36 basophil # (test code = basophil 0.07 K/uL 0.01-0.08 #) NRBC% (test code = NRBC%) 0 /100 WBC 0-0.2 NRBC# (test code = NRBC#) 0 K/uL [facility] 2000 panel - Serum or [...] Serum or Plasma (test code = 6768-6) [facility] 1996 panel - Serum or [id number] 07:44:00 Test Item Value Reference Range Interpretation Comments cholesterol level (test code = 145 mg/dL 150-200 L cholesterol level) triglycerides level (test code = 57 mg/dL <150 triglycerides level) HDL cholesterol (test code = HDL 66 mg/dL >65 cholesterol) LDL cholesterol direct (test code = 69 mg/dL <100 LDL cholesterol direct) cholesterol risk ratio (test code = 2.196 cholesterol risk ratio) [facility] HospitalBacteria identified in Urine by [id number] 07:44:00Bacteria Ur CultConerly Critical Care Hospitalantibiotic sensitivity testing, [id number] 07:44:00 Test Item Value Reference Range Interpretation [...] Minimum inhibitory concentration (GUSTAVO) (test code = 90733-6) cefTAZidime [Susceptibility] by <=2 Minimum inhibitory concentration (GUSTAVO) (test code = 133-9) cefTRIAXone [Susceptibility] by <=1 Minimum inhibitory concentration (UGSTAVO) (test code = 141-2) Ciprofloxacin [Susceptibility] by <=0.25 Minimum inhibitory concentration (GUSTAVO) (test code = 185-9) Ampicillin+Sulbactam =8/4 [Susceptibility] by Minimum inhibitory concentration (GUSTAVO) (test code = 32-3) Ertapenem [Susceptibility] by <=0.25 Minimum inhibitory concentration (GUSTAVO) (test code = 14956-0) Aztreonam [Susceptibility] by <=2 Minimum inhibitory concentration (GUSTAVO) (test code = 44-8) Cefepime [Susceptibility] by Minimum <=1 inhibitory concentration (GUSTAVO) (test code = 6644-9) Meropenem [Susceptibility] by <=0.5 Minimum inhibitory concentration (GUSTAVO) (test code = 6652-2) Moxifloxacin [Susceptibility] by <=1 Minimum inhibitory concentration (GUSTAVO) (test code = 44948-4) Amikacin [Susceptibility] by Minimum <=8 inhibitory concentration (GUSTAVO) (test code = 12-5) Piperacillin+Tazobactam =4/4 [Susceptibility] by Minimum inhibitory concentration (GUSTAVO) (test code = 412-7) Ceftaroline [Susceptibility] by <=0.25 Minimum inhibitory concentration (GUSTAVO) (test code = 38308-7) Tigecycline [Susceptibility] by 2 ug/mL Minimum inhibitory concentration (GUSTAVO) (test code = 14741-2) [facility] HospitalErythrocyte sedimentation [id number] 00:00:00 Test Item Value Reference Range Interpretation Comments erythrocyte sedimentation rate (test 8 mm/HR 0.00-20 code = erythrocyte sedimentation rate) [facility] HospitalHemoglobin A1c [Mass/volume] in [id number] 00:00:00 Test Item Value Reference Range Interpretation Comments Hemoglobin A1c [Mass/volume] in Blood 5.4 % 4.0-6.0 (test code = 79176-8) [facility] GroupThyrotropin [Units/volume] in Serum or [id number] 00:00:00 Test Item Value Reference Range Interpretation Comments Thyrotropin [Units/volume] in 0.94 uIU/mL 0.36-3.74 Serum or Plasma (test code = 3016-3) [facility] HospitalThyroxine (T4) [Mass/volume] in Serum or [id number] 00:00:00 Test Item Value Reference Range Interpretation Comments T4 (test code = T4) 7.1 ug/dL 4.5-11.7 [facility] HospitalErythrocyte sedimentation [id number] 00:00:00 Test Item Value Reference Range Interpretation Comments erythrocyte sedimentation rate (test 8 mm/HR 0.00-20 code = erythrocyte sedimentation rate) [facility] HospitalHemoglobin A1c/Hemoglobin.total in [id number] 00:00:00 Test Item Value Reference Range Interpretation Comments Hemoglobin A1c [Mass/volume] in Blood 5.4 % 4.0-6.0 (test code = 06791-7) [facility] GroupThyrotropin [Units/volume] in Serum or [id number] 00:00:00 Test Item Value Reference Range Interpretation Comments Thyrotropin [Units/volume] in 0.94 uIU/mL 0.36-3.74 Serum or Plasma (test code = 3016-3) [facility] GroupThyroxine (T4) [Mass/volume] in Serum or [id number] 00:00:00 Test Item Value Reference Range Interpretation Comments T4 (test code = T4) 7.1 ug/dL 4.5-11.7 [facility] A, [id number] 17:41:17 Test Item Value Reference Range Interpretation Comments Strep Result (test code = Strep negative Result) [facility], [id number] 17:41:17 Test Item Value Reference Range Interpretation Comments Strep Result (test code = Strep negative Result) [facility] HospitalInfluenza virus A and B and SARS-CoV+SARS-CoV-2 (COVID- 19) Ag panel - Upper respiratory specimen by Rapid [id number] 16:52:00 Test Item Value Reference Range Interpretation Comments RAPID SARS COV (test code = RAPID negative SARS COV) RAPID FLU A (test code = RAPID FLU negative A) RAPID FLU B (test code = RAPID FLU negative B) [facility]In[facility] virus A and B and SARS-CoV+SARS-CoV-2 (COVID- 19) Ag panel - Upper respiratory specimen by Rapid [id number] 16:52:00 Test Item Value Reference Range Interpretation Comments RAPID SARS COV (test code = RAPID negative SARS COV) RAPID FLU A (test code = RAPID FLU negative A) RAPID FLU B (test code = RAPID FLU negative B) [facility] W Auto Differential panel - [id number] 10:41:00 Test Item Value Reference Range Interpretation Comments white blood count (test code = 8.4 K/uL 4.0-11.5 white blood count) red blood count (test code = red 5.53 M/uL 3.80-5.20 H blood count) hemoglobin (test code = 14.3 g/dL 10.5-15.7 hemoglobin) hematocrit (test code = 45.4 % 34.0-50.0 hematocrit) MCV [Entitic volume] (test code = 82.1 fL 86.0-100.0 L 72922-2) mean corpuscular hemoglobin (test 25.9 pg 26.2-33.4 [...] 44.4-80.1 leukocytes in Blood (test code = 91976-1) Immature granulocytes [#/volume] 0.02 K/uL 0.00-0.03 in Blood (test code = 75940-4) lymphocyte% (test code = 38.7 % 10.0-50.0 lymphocyte%) mono % (test code = mono %) 5.3 % 3.6-12.0 eos % (test code = eos %) 1.4 % 0.0-5.4 Basophils/100 leukocytes in 0.6 % 0.1-1.2 Specimen (test code = 27377-8) Band form neutrophils [#/volume] 4.53 K/uL 1.56-6.13 in Blood (test code = 12881-1) Lymphocytes [#/volume] in Specimen 3.27 K/uL 1.18-3.74 by Automated count (test code = 91641-1) mono # (test code = mono #) 0.45 K/uL 0.24-0.86 eos # (test code = eos #) 0.12 K/uL 0.04-0.36 basophil # (test code = basophil 0.05 K/uL 0.01-0.08 #) NRBC% (test code = NRBC%) 0 /100 WBC 0-0.2 NRBC# (test code = NRBC#) 0 K/uL [facility]Com[facility] 2000 panel - Serum or [...] Serum or Plasma (test code = 6768-6) [facility] HospitalPT/[id number] 10:41:00 Test Item Value Reference Range Interpretation Comments prothrombin time (test code = 10.0 seconds 10.3-12.3 L prothrombin time) INR in Blood by Coagulation <0.94 assay (test code = 80384-0) [facility] HospitalDifferential panel, method unspecified - [id number] 00:00:00NeutrophilsBandLymphocyteAtypical LymphMonocyteEosinophilBasophilMyelocyteBlastsAbs Neutrophil Count(Man)Abs Lymph Count (Man)Abs Monocyte Count (Man)Abs Eosinophil Count (Man)Abs Basophil Count (Man)Platelet EstimatePlatelet MorphologyAnisocytosisMacrocytosisStomatocyteToxic GranulationMataAllegiance Specialty Hospital of GreenvilleChoriogonadotropin ( test) [Presence] in Serum or [id number] 00:00:00 Test Item Value Reference Range Interpretation Comments Choriogonadotropin.beta subunit negative neg ( test) [Presence] in Serum or Plasma (test code = 2110-5) [facility] Hospitalpartial thromboplastin [id number] 00:00:00 Test Item Value Reference Range Interpretation Comments INR in Blood by Coagulation 27.6 seconds 22.5-37.0 assay (test code = 88238-2) [facility] HospitalInfluenza virus A and B and SARS-CoV+SARS-CoV-2 (COVID- 19) Ag panel - Upper respiratory specimen by Rapid [id number] 14:30:06 Test Item Value Reference Range Interpretation Comments RAPID SARS COV (test code = RAPID negative SARS COV) RAPID FLU A (test code = RAPID FLU negative A) RAPID FLU B (test code = RAPID FLU negative B) [facility] HospitalInfluenza virus A and B and SARS-CoV+SARS-CoV-2 (COVID- 19) Ag panel - Upper respiratory specimen by Rapid [id number] 14:30:06 Test Item Value Reference Range Interpretation Comments RAPID SARS COV (test code = RAPID negative SARS COV) RAPID FLU A (test code = RAPID FLU negative A) RAPID FLU B (test code = RAPID FLU negative B) [facility] HospitalInfluenza virus A and B and SARS-CoV+SARS-CoV-2 (COVID- 19) Ag panel - Upper respiratory specimen by Rapid [id number] 14:30:06 Test Item Value Reference Range Interpretation Comments RAPID SARS COV (test code = RAPID negative SARS COV) RAPID FLU A (test code = RAPID FLU negative A) RAPID FLU B (test code = RAPID FLU negative B) [employer] strep group A, [id number] 14:29:58 Test Item Value Reference Range Interpretation Comments Strep Result (test code = Strep positive Result) [employer] strep group A, [id number] 14:29:58 Test Item Value Reference Range Interpretation Comments Strep Result (test code = Strep positive Result) [employer] strep group A, [id number] 14:29:58 Test Item Value Reference Range Interpretation Comments Strep Result (test code = Strep positive Result) [facility], [id number] 15:38:01 Test Item Value Reference Range Interpretation Comments Strep Result (test code = Strep negative Result) [facility], [id number] 15:38:01 Test Item Value Reference Range Interpretation Comments Strep Result (test code = Strep negative Result) [employer] strep group A, [id number] 15:38:01 Test Item Value Reference Range Interpretation Comments Strep Result (test code = Strep negative Result) [employer] strep group A, [id number] 15:38:01 Test Item Value Reference Range Interpretation Comments Strep Result (test code = Strep negative Result) [employer] strep group A, [id number] 15:56:00 Test Item Value Reference Range Interpretation Comments Strep Result (test code = Strep positive Result) [employer] strep group A, [id number] 15:56:00 Test Item Value Reference Range Interpretation Comments Strep Result (test code = Strep positive Result) [facility] - [id number] 15:37:27 Test Item Value Reference Range Interpretation Comments Leukocytes (test code = Leukocytes) Trace Nitrite (test code = Nitrite) negative Urobilinogen (test code = 1 Urobilinogen) Protein (test code = Protein) Negative pH (test code = pH) 7.0 Blood (test code = Blood) Negative Specific [place] (test code = 1.020 Specific [place]) Ketone (test code = Ketone) Negative Bilirubin (test code = Bilirubin) Negative Glucose (test code = Glucose) Negative Appearance (test code = Appearance) Clear Color (test code = Color) Yellow [facility] panel - [id number] 12:16:00 Test Item Value Reference Range Interpretation Comments white blood count (test code = 7.3 K/uL 4.0-11.5 white blood count) red blood count (test code = red 5.06 M/uL 3.80-5.20 blood count) hemoglobin (test code = 12.5 g/dL 10.5-15.7 hemoglobin) hematocrit (test code = 41.3 % 34.0-50.0 hematocrit) Erythrocyte mean corpuscular 81.6 fL 86-100 L volume [Entitic volume] (test code = 29567-9) mean corpuscular hemoglobin (test 24.7 pg 26.2-33.4 [...] 44.4-80.1 leukocytes in Blood (test code = 90620-8) Granulocytes Immature [#/volume] 0.0 K/uL 0.0-0.03 in Blood (test code = 55890-7) lymphocyte% (test code = 37.9 % 10.0-50.0 lymphocyte%) mono % (test code = mono %) 7.4 % 3.6-12.0 eos % (test code = eos %) 3.0 % 0.0-5.4 Basophils/100 leukocytes in 0.5 % 0.1-1.2 Unspecified specimen (test code = 50701-8) Neutrophils.band form [#/volume] 3.73 K/uL 1.56-6.13 in Blood (test code = 08555-9) Lymphocytes [#/volume] in 2.8 K/uL 1.18-3.74 Unspecified specimen by Automated count (test code = 44740-6) mono # (test code = mono #) 0.54 K/uL 0.24-0.86 eos # (test code = eos #) 0.22 K/uL 0.04-0.36 basophil # (test code = basophil 0.04 K/uL 0.01-0.08 #) NRBC% (test code = NRBC%) 0 /100 WBC 0-0.2 NRBC# (test code = NRBC#) 0 K/uL [facility], [id number] 12:16:00 NeutrophilsLymphocyteAtypical LymphMonocyteEosinophilBasophilPlatelet EstimateDifferential comment-[facility] HospitalChoriogonadotropin.beta subunit [Units/volume] in Serum or [id number] 12:16:00 Test Item Value Reference Range Interpretation Comments HCG quantitative (test code = HCG <0.1 0-5 quantitative) [facility] (dipstick) panel - [id number] 11:31:00 Test Item Value Reference Range Interpretation Comments Leukocytes (test code = Leukocytes) Large Nitrite (test code = Nitrite) negative Urobilinogen (test code = .2 Urobilinogen) Protein (test code = Protein) 30 pH (test code = pH) 8.0 Blood (test code = Blood) Small Specific [place] (test code = 1.020 Specific [place]) Ketone (test code = Ketone) Negative Bilirubin (test code = Bilirubin) Negative Glucose (test code = Glucose) Negative Appearance (test code = Appearance) Clear Color (test code = Color) Yellow [facility] (dipstick) panel - [id number] 11:31:00 Test Item Value Reference Range Interpretation Comments Leukocytes (test code = Leukocytes) Large Nitrite (test code = Nitrite) negative Urobilinogen (test code = .2 Urobilinogen) Protein (test code = Protein) 30 pH (test code = pH) 8.0 Blood (test code = Blood) Small Specific [place] (test code = 1.020 Specific [place]) Ketone (test code = Ketone) Negative Bilirubin (test code = Bilirubin) Negative Glucose (test code = Glucose) Negative Appearance (test code = Appearance) Clear Color (test code = Color) Yellow [facility] (dipstick) panel - [id number] 11:31:00 Test Item Value Reference Range Interpretation Comments Leukocytes (test code = Leukocytes) Large Nitrite (test code = Nitrite) negative Urobilinogen (test code = .2 Urobilinogen) Protein (test code = Protein) 30 pH (test code = pH) 8.0 Blood (test code = Blood) Small Specific [place] (test code = 1.020 Specific [place]) Ketone (test code = Ketone) Negative Bilirubin (test code = Bilirubin) Negative Glucose (test code = Glucose) Negative Appearance (test code = Appearance) Clear Color (test code = Color) Yellow [facility] W Auto Differential panel - [id number] 05:43:00 Test Item Value Reference Range Interpretation [...] L volume [Entitic volume] (test code = 62474-6) mean corpuscular hemoglobin (test 25.3 pg 26.2-33.4 [...] 44.4-80.1 leukocytes in Blood (test code = 52692-5) Granulocytes Immature [#/volume] 0.1 K/uL 0.0-0.03 H in Blood (test code = 86203-9) lymphocyte% (test code = 26.4 % 10.0-50.0 lymphocyte%) mono % (test code = mono %) 6.4 % 3.6-12.0 eos % (test code = eos %) 0.7 % 0.0-5.4 Basophils/100 leukocytes in 0.2 % 0.1-1.2 Unspecified specimen (test code = 14172-2) Neutrophils.band form [#/volume] 8.32 K/uL 1.56-6.13 H in Blood (test code = 24206-1) Lymphocytes [#/volume] in 3.3 K/uL 1.18-3.74 Unspecified specimen by Automated count (test code = 23851-1) mono # (test code = mono #) 0.81 K/uL 0.24-0.86 eos # (test code = eos #) 0.09 K/uL 0.04-0.36 basophil # (test code = basophil 0.03 K/uL 0.01-0.08 #) NRBC% (test code = NRBC%) 0 /100 WBC 0-0.2 NRBC# (test code = NRBC#) 0 K/uL [facility] W Auto Differential panel - [id number] 05:43:00 Test Item Value Reference Range Interpretation [...] L volume [Entitic volume] (test code = 43950-9) mean corpuscular hemoglobin (test 25.3 pg 26.2-33.4 [...] 44.4-80.1 leukocytes in Blood (test code = 17756-1) Granulocytes Immature [#/volume] 0.1 K/uL 0.0-0.03 H in Blood (test code = 78260-0) lymphocyte% (test code = 26.4 % 10.0-50.0 lymphocyte%) mono % (test code = mono %) 6.4 % 3.6-12.0 eos % (test code = eos %) 0.7 % 0.0-5.4 Basophils/100 leukocytes in 0.2 % 0.1-1.2 Unspecified specimen (test code = 40114-0) Neutrophils.band form [#/volume] 8.32 K/uL 1.56-6.13 H in Blood (test code = 06433-6) Lymphocytes [#/volume] in 3.3 K/uL 1.18-3.74 Unspecified specimen by Automated count (test code = 04452-7) mono # (test code = mono #) 0.81 K/uL 0.24-0.86 eos # (test code = eos #) 0.09 K/uL 0.04-0.36 basophil # (test code = basophil 0.03 K/uL 0.01-0.08 #) NRBC% (test code = NRBC%) 0 /100 WBC 0-0.2 NRBC# (test code = NRBC#) 0 K/uL [facility] W Auto Differential panel - [id number] 04:53:00 Test Item Value Reference Range Interpretation Comments white blood count (test code = 9.5 K/uL 4.0-11.5 white blood count) red blood count (test code = red 3.83 M/uL 3.80-5.20 blood count) hemoglobin (test code = 9.7 g/dL 10.5-15.7 L hemoglobin) hematocrit (test code = 31.4 % 34.0-50.0 L hematocrit) Erythrocyte mean corpuscular 82.0 fL 86-100 L volume [Entitic volume] (test code = 46117-6) mean corpuscular hemoglobin (test 25.3 pg 26.2-33.4 [...] 44.4-80.1 leukocytes in Blood (test code = 56689-4) Granulocytes Immature [#/volume] 0.1 K/uL 0.0-0.03 H in Blood (test code = 44100-1) lymphocyte% (test code = 30.9 % 10.0-50.0 lymphocyte%) mono % (test code = mono %) 7.2 % 3.6-12.0 eos % (test code = eos %) 0.3 % 0.0-5.4 Basophils/100 leukocytes in 0.2 % 0.1-1.2 Unspecified specimen (test code = 87236-8) Neutrophils.band form [#/volume] 5.77 K/uL 1.56-6.13 in Blood (test code = 87208-3) Lymphocytes [#/volume] in 2.9 K/uL 1.18-3.74 Unspecified specimen by Automated count (test code = 84623-4) mono # (test code = mono #) 0.68 K/uL 0.24-0.86 eos # (test code = eos #) 0.03 K/uL 0.04-0.36 L basophil # (test code = basophil 0.02 K/uL 0.01-0.08 #) NRBC% (test code = NRBC%) 0 /100 WBC 0-0.2 NRBC# (test code = NRBC#) 0 K/uL [facility] [Presence] in Serum by [id number] 04:53:00 Test Item Value Reference Range Interpretation Comments Reagin Ab [Presence] in Serum by nonreactive nonreactive RPR (test code = 11720-7) [facility] HospitalHepatitis B virus surface Ag [Presence] in Serum 2019-04-30 04:53:00 Test Item Value Reference Range Interpretation Comments .hepatitis B surface antigen (test negative negative code = .hepatitis B surface antigen) [facility] W Auto Differential panel - [id number] 04:53:00 Test Item Value Reference Range Interpretation Comments white blood count (test code = 9.5 K/uL 4.0-11.5 white blood count) red blood count (test code = red 3.83 M/uL 3.80-5.20 blood count) hemoglobin (test code = 9.7 g/dL 10.5-15.7 L hemoglobin) hematocrit (test code = 31.4 % 34.0-50.0 L hematocrit) Erythrocyte mean corpuscular 82.0 fL 86-100 L volume [Entitic volume] (test code = 42674-7) mean corpuscular hemoglobin (test 25.3 pg 26.2-33.4 [...] 44.4-80.1 leukocytes in Blood (test code = 42766-8) Granulocytes Immature [#/volume] 0.1 K/uL 0.0-0.03 H in Blood (test code = 97543-5) lymphocyte% (test code = 30.9 % 10.0-50.0 lymphocyte%) mono % (test code = mono %) 7.2 % 3.6-12.0 eos % (test code = eos %) 0.3 % 0.0-5.4 Basophils/100 leukocytes in 0.2 % 0.1-1.2 Unspecified specimen (test code = 47018-8) Neutrophils.band form [#/volume] 5.77 K/uL 1.56-6.13 in Blood (test code = 10252-0) Lymphocytes [#/volume] in 2.9 K/uL 1.18-3.74 Unspecified specimen by Automated count (test code = 20607-9) mono # (test code = mono #) 0.68 K/uL 0.24-0.86 eos # (test code = eos #) 0.03 K/uL 0.04-0.36 L basophil # (test code = basophil 0.02 K/uL 0.01-0.08 #) NRBC% (test code = NRBC%) 0 /100 WBC 0-0.2 NRBC# (test code = NRBC#) 0 K/uL [facility] [Presence] in Serum by [id number] 04:53:00 Test Item Value Reference Range Interpretation Comments Reagin Ab [Presence] in Serum by nonreactive nonreactive RPR (test code = 54510-8) [facility]atitis [facility] virus surface Ag [Presence] in Serum 2019-04-30 04:53:00 Test Item Value Reference Range Interpretation Comments .hepatitis B surface antigen (test negative negative code = .hepatitis B surface antigen) [facility] macro (dipstick) panel - [id number] 10:17:40 Test Item Value Reference Range Interpretation Comments Leukocytes (test code = Leukocytes) Trace Nitrite (test code = Nitrite) negative Urobilinogen (test code = .2 Urobilinogen) Protein (test code = Protein) Trace pH (test code = pH) 6.5 Blood (test code = Blood) Negative Specific [place] (test code = 1.015 Specific [place]) Ketone (test code = Ketone) Negative Bilirubin (test code = Bilirubin) Negative Glucose (test code = Glucose) Negative Appearance (test code = Appearance) Clear Color (test code = Color) Yellow [facility] macro (dipstick) panel - [id number] 10:17:40 Test Item Value Reference Range Interpretation Comments Leukocytes (test code = Leukocytes) Trace Nitrite (test code = Nitrite) negative Urobilinogen (test code = .2 Urobilinogen) Protein (test code = Protein) Trace pH (test code = pH) 6.5 Blood (test code = Blood) Negative Specific [place] (test code = 1.015 Specific [place]) Ketone (test code = Ketone) Negative Bilirubin (test code = Bilirubin) Negative Glucose (test code = Glucose) Negative Appearance (test code = Appearance) Clear Color (test code = Color) Yellow [facility] (dipstick) panel - [id number] 10:17:40 Test Item Value Reference Range Interpretation Comments Leukocytes (test code = Leukocytes) Trace Nitrite (test code = Nitrite) negative Urobilinogen (test code = .2 Urobilinogen) Protein (test code = Protein) Trace pH (test code = pH) 6.5 Blood (test code = Blood) Negative Specific [place] (test code = 1.015 Specific [place]) Ketone (test code = Ketone) Negative Bilirubin (test code = Bilirubin) Negative Glucose (test code = Glucose) Negative Appearance (test code = Appearance) Clear Color (test code = Color) Yellow [facility] Biophysical profile panel [id number] 10:06:43 Test Item Value Reference Range Interpretation Comments Amniotic Fluid Index (test code = 2 (14.5) Amniotic Fluid Index) Tone (test code = Tone) 2 Breathing (test code = 2 Breathing) Movement (test code = 2 Movement) Non-Stress Test (test code = 2 Non-Stress Test) [facility] Biophysical profile panel [id number] 10:06:43 Test Item Value Reference Range Interpretation Comments Amniotic Fluid Index (test code = 2 (14.5) Amniotic Fluid Index) Tone (test code = Tone) 2 Breathing (test code = 2 Breathing) Movement (test code = 2 Movement) Non-Stress Test (test code = 2 Non-Stress Test) [facility] Biophysical profile panel [id number] 10:06:43 Test Item Value Reference Range Interpretation Comments Amniotic Fluid Index (test code = 2 (14.5) Amniotic Fluid Index) Tone (test code = Tone) 2 Breathing (test code = 2 Breathing) Movement (test code = 2 Movement) Non-Stress Test (test code = 2 Non-Stress Test) [facility] (dipstick) panel - [id number] 11:37:00 Test Item Value Reference Range Interpretation Comments Leukocytes (test code = Leukocytes) Large Nitrite (test code = Nitrite) negative Urobilinogen (test code = 1 Urobilinogen) Protein (test code = Protein) Trace pH (test code = pH) 8.5 Blood (test code = Blood) Negative Specific [place] (test code = 1.020 Specific [place]) Ketone (test code = Ketone) Negative Bilirubin (test code = Bilirubin) Negative Glucose (test code = Glucose) Negative Appearance (test code = Appearance) Clear Color (test code = Color) Yellow [facility] (dipstick) panel - [id number] 11:37:00 Test Item Value Reference Range Interpretation Comments Leukocytes (test code = Leukocytes) Large Nitrite (test code = Nitrite) negative Urobilinogen (test code = 1 Urobilinogen) Protein (test code = Protein) Trace pH (test code = pH) 8.5 Blood (test code = Blood) Negative Specific [place] (test code = 1.020 Specific [place]) Ketone (test code = Ketone) Negative Bilirubin (test code = Bilirubin) Negative Glucose (test code = Glucose) Negative Appearance (test code = Appearance) Clear Color (test code = Color) Yellow [facility] (dipstick) panel - [id number] 11:37:00 Test Item Value Reference Range Interpretation Comments Leukocytes (test code = Leukocytes) Large Nitrite (test code = Nitrite) negative Urobilinogen (test code = 1 Urobilinogen) Protein (test code = Protein) Trace pH (test code = pH) 8.5 Blood (test code = Blood) Negative Specific [place] (test code = 1.020 Specific [place]) Ketone (test code = Ketone) Negative Bilirubin (test code = Bilirubin) Negative Glucose (test code = Glucose) Negative Appearance (test code = Appearance) Clear Color (test code = Color) Yellow [facility] (dipstick) panel - [id number] 11:37:00 Test Item Value Reference Range Interpretation Comments Leukocytes (test code = Leukocytes) Large Nitrite (test code = Nitrite) negative Urobilinogen (test code = 1 Urobilinogen) Protein (test code = Protein) Trace pH (test code = pH) 8.5 Blood (test code = Blood) Negative Specific [place] (test code = 1.020 Specific [place]) Ketone (test code = Ketone) Negative Bilirubin (test code = Bilirubin) Negative Glucose (test code = Glucose) Negative Appearance (test code = Appearance) Clear Color (test code = Color) Yellow [facility] (dipstick) panel - [id number] 11:37:00 Test Item Value Reference Range Interpretation Comments Leukocytes (test code = Leukocytes) Large Nitrite (test code = Nitrite) negative Urobilinogen (test code = 1 Urobilinogen) Protein (test code = Protein) Trace pH (test code = pH) 8.5 Blood (test code = Blood) Negative Specific [place] (test code = 1.020 Specific [place]) Ketone (test code = Ketone) Negative Bilirubin (test code = Bilirubin) Negative Glucose (test code = Glucose) Negative Appearance (test code = Appearance) Clear Color (test code = Color) Yellow [facility] Biophysical profile panel [id number] 11:06:57 Test Item Value Reference Range Interpretation Comments Amniotic Fluid Index (test code = 2 (14.6) Amniotic Fluid Index) Tone (test code = Tone) 2 Breathing (test code = 2 Breathing) Movement (test code = 2 Movement) Non-Stress Test (test code = 2 Non-Stress Test) [facility] Biophysical profile panel [id number] 11:06:57 Test Item Value Reference Range Interpretation Comments Amniotic Fluid Index (test code = 2 (14.6) Amniotic Fluid Index) Tone (test code = Tone) 2 Breathing (test code = 2 Breathing) Movement (test code = 2 Movement) Non-Stress Test (test code = 2 Non-Stress Test) [facility] Biophysical profile panel [id number] 11:06:57 Test Item Value Reference Range Interpretation Comments Amniotic Fluid Index (test code = 2 (14.6) Amniotic Fluid Index) Tone (test code = Tone) 2 Breathing (test code = 2 Breathing) Movement (test code = 2 Movement) Non-Stress Test (test code = 2 Non-Stress Test) [facility] Biophysical profile panel [id number] 11:06:57 Test Item Value Reference Range Interpretation Comments Amniotic Fluid Index (test code = 2 (14.6) Amniotic Fluid Index) Tone (test code = Tone) 2 Breathing (test code = 2 Breathing) Movement (test code = 2 Movement) Non-Stress Test (test code = 2 Non-Stress Test) [facility] Biophysical profile panel [id number] 11:06:57 Test Item Value Reference Range Interpretation Comments Amniotic Fluid Index (test code = 2 (14.6) Amniotic Fluid Index) Tone (test code = Tone) 2 Breathing (test code = 2 Breathing) Movement (test code = 2 Movement) Non-Stress Test (test code = 2 Non-Stress Test) [facility] (dipstick) panel - [id number] 15:44:30 Test Item Value Reference Range Interpretation Comments Leukocytes (test code = Small Leukocytes) Nitrite (test code = Nitrite) negative Urobilinogen (test code = 2 Urobilinogen) Protein (test code = Protein) 30 pH (test code = pH) 8.0 Blood (test code = Blood) Negative Specific [place] (test code = 1.020 Specific [place]) Ketone (test code = Ketone) Negative Bilirubin (test code = Bilirubin) Small Glucose (test code = Glucose) Negative Appearance (test code = Clear Appearance) Color (test code = Color) Dark Yellow [facility] (dipstick) panel - [id number] 15:44:30 Test Item Value Reference Range Interpretation Comments Leukocytes (test code = Small Leukocytes) Nitrite (test code = Nitrite) negative Urobilinogen (test code = 2 Urobilinogen) Protein (test code = Protein) 30 pH (test code = pH) 8.0 Blood (test code = Blood) Negative Specific [place] (test code = 1.020 Specific [place]) Ketone (test code = Ketone) Negative Bilirubin (test code = Bilirubin) Small Glucose (test code = Glucose) Negative Appearance (test code = Clear Appearance) Color (test code = Color) Dark Yellow [facility] (dipstick) panel - [id number] 15:44:30 Test Item Value Reference Range Interpretation Comments Leukocytes (test code = Small Leukocytes) Nitrite (test code = Nitrite) negative Urobilinogen (test code = 2 Urobilinogen) Protein (test code = Protein) 30 pH (test code = pH) 8.0 Blood (test code = Blood) Negative Specific [place] (test code = 1.020 Specific [place]) Ketone (test code = Ketone) Negative Bilirubin (test code = Bilirubin) Small Glucose (test code = Glucose) Negative Appearance (test code = Clear Appearance) Color (test code = Color) Dark Yellow [facility] (dipstick) panel - [id number] 15:44:30 Test Item Value Reference Range Interpretation Comments Leukocytes (test code = Small Leukocytes) Nitrite (test code = Nitrite) negative Urobilinogen (test code = 2 Urobilinogen) Protein (test code = Protein) 30 pH (test code = pH) 8.0 Blood (test code = Blood) Negative Specific [place] (test code = 1.020 Specific [place]) Ketone (test code = Ketone) Negative Bilirubin (test code = Bilirubin) Small Glucose (test code = Glucose) Negative Appearance (test code = Clear Appearance) Color (test code = Color) Dark Yellow [facility] (dipstick) panel - [id number] 15:44:30 Test Item Value Reference Range Interpretation Comments Leukocytes (test code = Small Leukocytes) Nitrite (test code = Nitrite) negative Urobilinogen (test code = 2 Urobilinogen) Protein (test code = Protein) 30 pH (test code = pH) 8.0 Blood (test code = Blood) Negative Specific [place] (test code = 1.020 Specific [place]) Ketone (test code = Ketone) Negative Bilirubin (test code = Bilirubin) Small Glucose (test code = Glucose) Negative Appearance (test code = Clear Appearance) Color (test code = Color) Dark Yellow [facility] (dipstick) panel - [id number] 15:44:30 Test Item Value Reference Range Interpretation Comments Leukocytes (test code = Small Leukocytes) Nitrite (test code = Nitrite) negative Urobilinogen (test code = 2 Urobilinogen) Protein (test code = Protein) 30 pH (test code = pH) 8.0 Blood (test code = Blood) Negative Specific [place] (test code = 1.020 Specific [place]) Ketone (test code = Ketone) Negative Bilirubin (test code = Bilirubin) Small Glucose (test code = Glucose) Negative Appearance (test code = Clear Appearance) Color (test code = Color) Dark Yellow [facility] Biophysical profile panel [id number] 15:38:02 Test Item Value Reference Range Interpretation Comments Amniotic Fluid Index (test code = 2 (15.5) Amniotic Fluid Index) Tone (test code = Tone) 2 Breathing (test code = 2 Breathing) Movement (test code = 2 Movement) Non-Stress Test (test code = 2 Non-Stress Test) [facility] Biophysical profile panel [id number] 15:38:02 Test Item Value Reference Range Interpretation Comments Amniotic Fluid Index (test code = 2 (15.5) Amniotic Fluid Index) Tone (test code = Tone) 2 Breathing (test code = 2 Breathing) Movement (test code = 2 Movement) Non-Stress Test (test code = 2 Non-Stress Test) [facility] Biophysical profile panel [id number] 15:38:02 Test Item Value Reference Range Interpretation Comments Amniotic Fluid Index (test code = 2 (15.5) Amniotic Fluid Index) Tone (test code = Tone) 2 Breathing (test code = 2 Breathing) Movement (test code = 2 Movement) Non-Stress Test (test code = 2 Non-Stress Test) [facility] Biophysical profile panel [id number] 15:38:02 Test Item Value Reference Range Interpretation Comments Amniotic Fluid Index (test code = 2 (15.5) Amniotic Fluid Index) Tone (test code = Tone) 2 Breathing (test code = 2 Breathing) Movement (test code = 2 Movement) Non-Stress Test (test code = 2 Non-Stress Test) [facility] Biophysical profile panel [id number] 15:38:02 Test Item Value Reference Range Interpretation Comments Amniotic Fluid Index (test code = 2 (15.5) Amniotic Fluid Index) Tone (test code = Tone) 2 Breathing (test code = 2 Breathing) Movement (test code = 2 Movement) Non-Stress Test (test code = 2 Non-Stress Test) [facility] Biophysical profile panel [id number] 15:38:02 Test Item Value Reference Range Interpretation Comments Amniotic Fluid Index (test code = 2 (15.5) Amniotic Fluid Index) Tone (test code = Tone) 2 Breathing (test code = 2 Breathing) Movement (test code = 2 Movement) Non-Stress Test (test code = 2 Non-Stress Test) [facility] Biophysical profile panel [id number] 09:23:00 Test Item Value Reference Range Interpretation Comments Amniotic Fluid Index (test code = 2 (15.4) Amniotic Fluid Index) Tone (test code = Tone) 2 Breathing (test code = 2 Breathing) Movement (test code = 2 Movement) [facility] Biophysical profile panel [id number] 09:23:00 Test Item Value Reference Range Interpretation Comments Amniotic Fluid Index (test code = 2 (15.4) Amniotic Fluid Index) Tone (test code = Tone) 2 Breathing (test code = 2 Breathing) Movement (test code = 2 Movement) [facility] Biophysical profile panel [id number] 09:23:00 Test Item Value Reference Range Interpretation Comments Amniotic Fluid Index (test code = 2 (15.4) Amniotic Fluid Index) Tone (test code = Tone) 2 Breathing (test code = 2 Breathing) Movement (test code = 2 Movement) [facility] Biophysical profile panel [id number] 09:23:00 Test Item Value Reference Range Interpretation Comments Amniotic Fluid Index (test code = 2 (15.4) Amniotic Fluid Index) Tone (test code = Tone) 2 Breathing (test code = 2 Breathing) Movement (test code = 2 Movement) [facility] Biophysical profile panel [id number] 11:41:00 Test Item Value Reference Range Interpretation Comments Amniotic Fluid Index (test code = 2 (13.3) Amniotic Fluid Index) Tone (test code = Tone) 2 Breathing (test code = 2 Breathing) Movement (test code = 2 Movement) [facility] Biophysical profile [facility] [id number] 11:41:00 Test Item Value Reference Range Interpretation Comments Amniotic Fluid Index (test code = 2 (13.3) Amniotic Fluid Index) Tone (test code = Tone) 2 Breathing (test code = 2 Breathing) Movement (test code = 2 Movement) [facility] Biophysical profile panel [id number] 11:41:00 Test Item Value Reference Range Interpretation Comments Amniotic Fluid Index (test code = 2 (13.3) Amniotic Fluid Index) Tone (test code = Tone) 2 Breathing (test code = 2 Breathing) Movement (test code = 2 Movement) [facility] Biophysical profile panel [id number] 11:41:00 Test Item Value Reference Range Interpretation Comments Amniotic Fluid Index (test code = 2 (13.3) Amniotic Fluid Index) Tone (test code = Tone) 2 Breathing (test code = 2 Breathing) Movement (test code = 2 Movement) [facility] Biophysical profile panel [id number] 11:59:00 Test Item Value Reference Range Interpretation Comments Amniotic Fluid Index (test code = 2 (12.2) Amniotic Fluid Index) Tone (test code = Tone) 2 Breathing (test code = 2 Breathing) Movement (test code = 2 Movement) [facility] Biophysical profile panel [id number] 11:59:00 Test Item Value Reference Range Interpretation Comments Amniotic Fluid Index (test code = 2 (12.2) Amniotic Fluid Index) Tone (test code = Tone) 2 Breathing (test code = 2 Breathing) Movement (test code = 2 Movement) [facility] Biophysical profile panel [id number] 11:59:00 Test Item Value Reference Range Interpretation Comments Amniotic Fluid Index (test code = 2 (12.2) Amniotic Fluid Index) Tone (test code = Tone) 2 Breathing (test code = 2 Breathing) Movement (test code = 2 Movement) [facility] Biophysical profile panel [id number] 11:59:00 Test Item Value Reference Range Interpretation Comments Amniotic Fluid Index (test code = 2 (12.2) Amniotic Fluid Index) Tone (test code = Tone) 2 Breathing (test code = 2 Breathing) Movement (test code = 2 Movement) [facility] Biophysical profile panel [id number] 11:59:00 Test Item Value Reference Range Interpretation Comments Amniotic Fluid Index (test code = 2 (12.2) Amniotic Fluid Index) Tone (test code = Tone) 2 Breathing (test code = 2 Breathing) Movement (test code = 2 Movement) [facility] GroupBacteria identified in Urine by [id number] 10:18:00 Test Item Value Reference Range Interpretation Comments Bacteria identified in no growth after 2 Urine by Culture (test days code = 630-4) [facility] GroupBacteria identified in Urine by [id number] 10:18:00 Test Item Value Reference Range Interpretation Comments Bacteria identified in no growth after 2 Urine by Culture (test days code = 630-4) [facility] GroupBacteria identified in Urine by [id number] 10:18:00 Test Item Value Reference Range Interpretation Comments Bacteria identified in no growth after 2 Urine by Culture (test days code = 630-4) [facility] GroupBacteria identified in Urine by [id number] 10:18:00 Test Item Value Reference Range Interpretation Comments Bacteria identified in no growth after 2 Urine by Culture (test days code = 630-4) [facility] GroupGlucose [Mass/volume] in Serum or Plasma --1 hour post dose [id number] 12:27:00 Test Item Value Reference Range Interpretation Comments Results (test code = Results) 152-Fail [facility] GroupGlucose [Mass/volume] in Serum or Plasma --1 hour post dose [id number] 12:27:00 Test Item Value Reference Range Interpretation Comments Results (test code = Results) 152-Fail [facility] GroupGlucose [Mass/volume] in Serum or Plasma --1 hour post dose [id number] 12:27:00 Test Item Value Reference Range Interpretation Comments Results (test code = Results) 152-Fail [facility] GroupGlucose [Mass/volume] in Serum or Plasma --1 hour post dose [id number] 12:27:00 Test Item Value Reference Range Interpretation Comments Results (test code = Results) 152-Fail [facility] GroupGlucose [Mass/volume] in Serum or Plasma --1 hour post dose [id number] 12:27:00 Test Item Value Reference Range Interpretation Comments Results (test code = Results) 152-Fail [facility] GroupCBC W Auto Differential panel - [id number] 11:08:00 Test Item Value Reference Range Interpretation Comments white blood count (test code = 14.1 K/uL 4.0-11.5 H white blood count) red blood count (test code = red 4.04 M/uL 3.80-5.20 blood count) hemoglobin (test code = 11.1 g/dL 10.5-15.7 hemoglobin) hematocrit (test code = 35.1 % 34.0-50.0 hematocrit) Erythrocyte mean corpuscular 86.9 fL 86-100 volume [Entitic volume] (test code = 62736-3) mean corpuscular hemoglobin (test 27.5 pg 26.2-33.4 [...] H leukocytes in Blood (test code = 76167-6) Granulocytes Immature [#/volume] 0.1 K/uL 0.0-0.03 H in Blood (test code = 87280-1) lymphocyte% (test code = 10.7 % 10.0-50.0 lymphocyte%) mono % (test code = mono %) 4.0 % 3.6-12.0 eos % (test code = eos %) 0.1 % 0.0-5.4 Basophils/100 leukocytes in 0.1 % 0.1-1.2 Unspecified specimen (test code = 04542-5) Neutrophils.band form [#/volume] 11.91 K/uL 1.56-6.13 H in Blood (test code = 70288-3) Lymphocytes [#/volume] in 1.5 K/uL 1.18-3.74 Unspecified specimen by Automated count (test code = 33873-2) mono # (test code = mono #) 0.56 K/uL 0.24-0.86 eos # (test code = eos #) 0.01 K/uL 0.04-0.36 L basophil # (test code = basophil 0.02 K/uL 0.01-0.08 #) NRBC% (test code = NRBC%) 0 /100 WBC 0-0.2 NRBC# (test code = NRBC#) 0 K/uL [facility], [id number] 11:08:00 NeutrophilsBandLymphocyteMonocytePlatelet EstimateMatagorda Medical GroupBlood group antibody screen [Presence] in Serum or [id number] 11:08:00 Test Item Value Reference Range Interpretation Comments Blood group antibody screen negative [Presence] in Serum or Plasma (test code = 890-4) [facility] W Auto Differential panel - [id number] 11:08:00 Test Item Value Reference Range Interpretation Comments white blood count (test code = 14.1 K/uL 4.0-11.5 H white blood count) red blood count (test code = red 4.04 M/uL 3.80-5.20 blood count) hemoglobin (test code = 11.1 g/dL 10.5-15.7 hemoglobin) hematocrit (test code = 35.1 % 34.0-50.0 hematocrit) Erythrocyte mean corpuscular 86.9 fL 86-100 volume [Entitic volume] (test code = 96247-8) mean corpuscular hemoglobin (test 27.5 pg 26.2-33.4 [...] H leukocytes in Blood (test code = 32810-7) Granulocytes Immature [#/volume] 0.1 K/uL 0.0-0.03 H in Blood (test code = 40980-2) lymphocyte% (test code = 10.7 % 10.0-50.0 lymphocyte%) mono % (test code = mono %) 4.0 % 3.6-12.0 eos % (test code = eos %) 0.1 % 0.0-5.4 Basophils/100 leukocytes in 0.1 % 0.1-1.2 Unspecified specimen (test code = 80279-9) Neutrophils.band form [#/volume] 11.91 K/uL 1.56-6.13 H in Blood (test code = 19570-4) Lymphocytes [#/volume] in 1.5 K/uL 1.18-3.74 Unspecified specimen by Automated count (test code = 98501-2) mono # (test code = mono #) 0.56 K/uL 0.24-0.86 eos # (test code = eos #) 0.01 K/uL 0.04-0.36 L basophil # (test code = basophil 0.02 K/uL 0.01-0.08 #) NRBC% (test code = NRBC%) 0 /100 WBC 0-0.2 NRBC# (test code = NRBC#) 0 K/uL [facility]different[facility], [id number] 11:08:00 NeutrophilsBandLymphocyteMonocytePlatelet EstimateMaPatient's Choice Medical Center of Smith CountyBlood group antibody screen [Presence] in Serum or [id number] 11:08:00 Test Item Value Reference Range Interpretation Comments Blood group antibody screen negative [Presence] in Serum or Plasma (test code = 890-4) [facility] HospitalHIV [facility]+2 Ab [Presence] in [id number] 11:08:00HIV P24 AgHIV-1/2 AbConerly Critical Care HospitalReagin Ab [Presence] in Serum by RPR 2019-03-09 11:08:00 Test Item Value Reference Range Interpretation Comments Reagin Ab [Presence] in Serum by nonreactive nonreactive RPR (test code = 02881-3) [facility] HospitalCB W Auto Differential panel - [id number] 11:08:00 Test Item Value Reference Range Interpretation Comments white blood count (test code = 14.1 K/uL 4.0-11.5 H white blood count) red blood count (test code = red 4.04 M/uL 3.80-5.20 blood count) hemoglobin (test code = 11.1 g/dL 10.5-15.7 hemoglobin) hematocrit (test code = 35.1 % 34.0-50.0 hematocrit) Erythrocyte mean corpuscular 86.9 fL 86-100 volume [Entitic volume] (test code = 43500-9) mean corpuscular hemoglobin (test 27.5 pg 26.2-33.4 [...] H leukocytes in Blood (test code = 15532-5) Granulocytes Immature [#/volume] 0.1 K/uL 0.0-0.03 H in Blood (test code = 16182-4) lymphocyte% (test code = 10.7 % 10.0-50.0 lymphocyte%) mono % (test code = mono %) 4.0 % 3.6-12.0 eos % (test code = eos %) 0.1 % 0.0-5.4 Basophils/100 leukocytes in 0.1 % 0.1-1.2 Unspecified specimen (test code = 28017-3) Neutrophils.band form [#/volume] 11.91 K/uL 1.56-6.13 H in Blood (test code = 69935-7) Lymphocytes [#/volume] in 1.5 K/uL 1.18-3.74 Unspecified specimen by Automated count (test code = 34722-3) mono # (test code = mono #) 0.56 K/uL 0.24-0.86 eos # (test code = eos #) 0.01 K/uL 0.04-0.36 L basophil # (test code = basophil 0.02 K/uL 0.01-0.08 #) NRBC% (test code = NRBC%) 0 /100 WBC 0-0.2 NRBC# (test code = NRBC#) 0 K/uL [facility] Groupdifferential panel, [id number] 11:08:00 NeutrophilsBandLymphocyteMonocytePlatelet EstimateMatagorda Medical GroupBlood group antibody screen [Presence] in Serum or [id number] 11:08:00 Test Item Value Reference Range Interpretation Comments Blood group antibody screen negative [Presence] in Serum or Plasma (test code = 890-4) [facility] HospitalHIV [facility] Ab [Presence] in [id number] 11:08:00HIV P24 AgHIV-1/2 AbConerly Critical Care HospitalReagin Ab [Presence] in Serum by RPR 2019-03-09 11:08:00 Test Item Value Reference Range Interpretation Comments Reagin Ab [Presence] in Serum by nonreactive nonreactive RPR (test code = 38960-7) [facility] W Auto Differential panel - [id number] 11:08:00 Test Item Value Reference Range Interpretation Comments white blood count (test code = 14.1 K/uL 4.0-11.5 H white blood count) red blood count (test code = red 4.04 M/uL 3.80-5.20 blood count) hemoglobin (test code = 11.1 g/dL 10.5-15.7 hemoglobin) hematocrit (test code = 35.1 % 34.0-50.0 hematocrit) Erythrocyte mean corpuscular 86.9 fL 86-100 volume [Entitic volume] (test code = 91383-2) mean corpuscular hemoglobin (test 27.5 pg 26.2-33.4 [...] H leukocytes in Blood (test code = 52306-1) Granulocytes Immature [#/volume] 0.1 K/uL 0.0-0.03 H in Blood (test code = 19386-6) lymphocyte% (test code = 10.7 % 10.0-50.0 lymphocyte%) mono % (test code = mono %) 4.0 % 3.6-12.0 eos % (test code = eos %) 0.1 % 0.0-5.4 Basophils/100 leukocytes in 0.1 % 0.1-1.2 Unspecified specimen (test code = 39334-8) Neutrophils.band form [#/volume] 11.91 K/uL 1.56-6.13 H in Blood (test code = 69959-7) Lymphocytes [#/volume] in 1.5 K/uL 1.18-3.74 Unspecified specimen by Automated count (test code = 13181-3) mono # (test code = mono #) 0.56 K/uL 0.24-0.86 eos # (test code = eos #) 0.01 K/uL 0.04-0.36 L basophil # (test code = basophil 0.02 K/uL 0.01-0.08 #) NRBC% (test code = NRBC%) 0 /100 WBC 0-0.2 NRBC# (test code = NRBC#) 0 K/uL [facility]different[facility] panel, [id number] 11:08:00 NeutrophilsBandLymphocyteMonocytePlatelet EstimateConerly Critical Care HospitalBlood group antibody screen [Presence] in Serum or [id number] 11:08:00 Test Item Value Reference Range Interpretation Comments Blood group antibody screen negative [Presence] in Serum or Plasma (test code = 890-4) [facility] HospitalHIV [facility]2 Ab [Presence] in [id number] 11:08:00HIV P24 AgHIV-1/2 AbConerly Critical Care HospitalReagin Ab [Presence] in Serum by RPR 2019-03-09 11:08:00 Test Item Value Reference Range Interpretation Comments Reagin Ab [Presence] in Serum by nonreactive nonreactive RPR (test code = 89206-0) [facility] HospitalCB W Auto Differential panel - [id number] 11:08:00 Test Item Value Reference Range Interpretation Comments white blood count (test code = 14.1 K/uL 4.0-11.5 H white blood count) red blood count (test code = red 4.04 M/uL 3.80-5.20 blood count) hemoglobin (test code = 11.1 g/dL 10.5-15.7 hemoglobin) hematocrit (test code = 35.1 % 34.0-50.0 hematocrit) Erythrocyte mean corpuscular 86.9 fL 86-100 volume [Entitic volume] (test code = 21740-1) mean corpuscular hemoglobin (test 27.5 pg 26.2-33.4 [...] H leukocytes in Blood (test code = 34716-6) Granulocytes Immature [#/volume] 0.1 K/uL 0.0-0.03 H in Blood (test code = 96241-6) lymphocyte% (test code = 10.7 % 10.0-50.0 lymphocyte%) mono % (test code = mono %) 4.0 % 3.6-12.0 eos % (test code = eos %) 0.1 % 0.0-5.4 Basophils/100 leukocytes in 0.1 % 0.1-1.2 Unspecified specimen (test code = 33577-5) Neutrophils.band form [#/volume] 11.91 K/uL 1.56-6.13 H in Blood (test code = 62405-9) Lymphocytes [#/volume] in 1.5 K/uL 1.18-3.74 Unspecified specimen by Automated count (test code = 15866-5) mono # (test code = mono #) 0.56 K/uL 0.24-0.86 eos # (test code = eos #) 0.01 K/uL 0.04-0.36 L basophil # (test code = basophil 0.02 K/uL 0.01-0.08 #) NRBC% (test code = NRBC%) 0 /100 WBC 0-0.2 NRBC# (test code = NRBC#) 0 K/uL [facility]differential panel, [id number] 11:08:00 NeutrophilsBandLymphocyteMonocytePlatelet EstimateMameadows regional medical centera Medical GroupBlood group antibody screen [Presence] in Serum or [id number] 11:08:00 Test Item Value Reference Range Interpretation Comments Blood group antibody screen negative [Presence] in Serum or Plasma (test code = 890-4) [facility] GroupHIV 1+2 Ab [Presence] in [id number] 11:08:00HIV P24 AgHIV-1/2 AbMatanorwalk hospital Medical GroupReagin Ab [Presence] in Serum by RPR 2019-03-09 11:08:00 Test Item Value Reference Range Interpretation Comments Reagin Ab [Presence] in Serum by nonreactive nonreactive RPR (test code = 62554-2) [facility] GroupChlamydia trachomatis+Neisseria gonorrhoeae DNA [Presence] in Cervix by Probe and target amplification [id number] 10:54:00 ResultsMatagorda Medical GroupMicroscopic observation [Identifier] in Cervix by Cyto stain.thin [id number] 10:54:00ResultsMatagorda Medical GroupChlamydia trachomatis+Neisseria gonorrhoeae DNA [Presence] in Cervix by Probe and target amplification [id number] 10:54:00ResultsMatagorda Medical GroupMicroscopic observation [Identifier] in Cervix by Cyto stain.thin [id number] 10:54:00 ResultsMatagorda Medical GroupChlamydia trachomatis+Neisseria gonorrhoeae DNA [Presence] in Cervix by Probe and target amplification [id number] 10:54:00 ResultsMatagorda Medical GroupMicroscopic observation [Identifier] in Cervix by Cyto stain.thin [id number] 10:54:00ResultsMatagorda Medical GroupChlamydia trachomatis+Neisseria gonorrhoeae DNA [Presence] in Cervix by Probe and target amplification [id number] 10:54:00ResultsMatagorda Medical GroupMicroscopic observation [Identifier] in Cervix by Cyto stain.thin [id number] 10:54:00 ResultsMatarda Medical GroupUrinalysis macro (dipstick) panel - Urine 2019-03-04 15:32:00 Test Item Value Reference Range Interpretation Comments Leukocytes (test code = Moderate Leukocytes) Nitrite (test code = negative Nitrite) Urobilinogen (test code = .2 Urobilinogen) Protein (test code = Trace Protein) pH (test code = pH) 7.0 Blood (test code = Blood) Non-Hemolyzed: Trace Specific [place] (test 1.020 code = Specific [place]) Ketone (test code = Trace Ketone) Bilirubin (test code = Negative Bilirubin) Glucose (test code = Negative Glucose) Appearance (test code = Clear Appearance) Color (test code = Color) Yellow [facility] HospitalUrinalysis macro (dipstick) panel - [id number] 15:32:00 Test Item Value Reference Range Interpretation Comments Leukocytes (test code = Moderate Leukocytes) Nitrite (test code = negative Nitrite) Urobilinogen (test code = .2 Urobilinogen) Protein (test code = Trace Protein) pH (test code = pH) 7.0 Blood (test code = Blood) Non-Hemolyzed: Trace Specific [place] (test 1.020 code = Specific [place]) Ketone (test code = Trace Ketone) Bilirubin (test code = Negative Bilirubin) Glucose (test code = Negative Glucose) Appearance (test code = Clear Appearance) Color (test code = Color) Yellow [facility] HospitalUrinalysis macro (dipstick) panel - [id number] 15:32:00 Test Item Value Reference Range Interpretation Comments Leukocytes (test code = Moderate Leukocytes) Nitrite (test code = negative Nitrite) Urobilinogen (test code = .2 Urobilinogen) Protein (test code = Trace Protein) pH (test code = pH) 7.0 Blood (test code = Blood) Non-Hemolyzed: Trace Specific [place] (test 1.020 code = Specific [place]) Ketone (test code = Trace Ketone) Bilirubin (test code = Negative Bilirubin) Glucose (test code = Negative Glucose) Appearance (test code = Clear Appearance) Color (test code = Color) Yellow [facility] HospitalUrinalysis macro (dipstick) panel - [id number] 15:32:00 Test Item Value Reference Range Interpretation Comments Leukocytes (test code = Moderate Leukocytes) Nitrite (test code = negative Nitrite) Urobilinogen (test code = .2 Urobilinogen) Protein (test code = Trace Protein) pH (test code = pH) 7.0 Blood (test code = Blood) Non-Hemolyzed: Trace Specific [place] (test 1.020 code = Specific [place]) Ketone (test code = Trace Ketone) Bilirubin (test code = Negative Bilirubin) Glucose (test code = Negative Glucose) Appearance (test code = Clear Appearance) Color (test code = Color) Yellow [facility] HospitalUrinalysis macro (dipstick) panel - [id number] 15:32:00 Test Item Value Reference Range Interpretation Comments Leukocytes (test code = Moderate Leukocytes) Nitrite (test code = negative Nitrite) Urobilinogen (test code = .2 Urobilinogen) Protein (test code = Trace Protein) pH (test code = pH) 7.0 Blood (test code = Blood) Non-Hemolyzed: Trace Specific [place] (test 1.020 code = Specific [place]) Ketone (test code = Trace Ketone) Bilirubin (test code = Negative Bilirubin) Glucose (test code = Negative Glucose) Appearance (test code = Clear Appearance) Color (test code = Color) Yellow [facility] HospitalUrinalysis macro (dipstick) panel - [id number] 15:32:00 Test Item Value Reference Range Interpretation Comments Leukocytes (test code = Moderate Leukocytes) Nitrite (test code = negative Nitrite) Urobilinogen (test code = .2 Urobilinogen) Protein (test code = Trace Protein) pH (test code = pH) 7.0 Blood (test code = Blood) Non-Hemolyzed: Trace Specific [place] (test 1.020 code = Specific [place]) Ketone (test code = Trace Ketone) Bilirubin (test code = Negative Bilirubin) Glucose (test code = Negative Glucose) Appearance (test code = Clear Appearance) Color (test code = Color) [facility] - [id number] 12:35:00 Test Item Value Reference Range Interpretation Comments white blood count (test code = 12.4 K/uL 4.0-11.5 white blood count) red blood count (test code = red 3.63 M/uL 3.80-5.20 L blood count) hemoglobin (test code = 10.0 g/dL 10.5-15.7 L hemoglobin) hematocrit (test code = 31.4 % 34.0-50.0 hematocrit) Erythrocyte mean corpuscular 86.5 fL 86-100 volume [Entitic volume] (test code = 24131-9) mean corpuscular hemoglobin (test 27.5 pg 26.2-33.4 [...] 44.4-80.1 leukocytes in Blood (test code = 77722-8) Granulocytes Immature [#/volume] 0.1 K/uL 0.0-0.03 H in Blood (test code = 80413-3) lymphocyte% (test code = 15.7 % 10.0-50.0 lymphocyte%) mono % (test code = mono %) 5.7 % 3.6-12.0 eos % (test code = eos %) 0.3 % 0.0-5.4 Basophils/100 leukocytes in 0.2 % 0.1-1.2 Unspecified specimen (test code = 46802-1) Neutrophils.band form [#/volume] 9.61 K/uL 1.56-6.13 H in Blood (test code = 79289-6) Lymphocytes [#/volume] in 1.9 K/uL 1.18-3.74 Unspecified specimen by Automated count (test code = 17902-1) mono # (test code = mono #) 0.70 K/uL 0.24-0.86 eos # (test code = eos #) 0.04 K/uL 0.04-0.36 basophil # (test code = basophil 0.02 K/uL 0.01-0.08 #) NRBC% (test code = NRBC%) 0 /100 WBC 0-0.2 NRBC# (test code = NRBC#) 0 K/uL [facility] 1+2 Ab [Presence] in [id number] 12:35:00HIV P24 AgHIV-1/2 AbMaMayo Clinic Health [facility] GroupABO & Rh group [Type] in [id number] 12:35:00 Test Item Value Reference Range Interpretation Comments Rh [Type] in Blood (test code = 3+ 48063-1) ABO and Rh group panel - Blood O positive (test code = 99564-2) [facility] HospitalBlood [facility] antibody screen [Presence] in Serum or Plasma 2019-03-04 12:35:00 Test Item Value Reference Range Interpretation Comments Blood group antibody screen negative [Presence] in Serum or Plasma (test code = 890-4) [facility] GroupBacteria identified in Urine by [id number] 12:35:00Bacteria Ur CultSt. Luke[facility] GroupReagin Ab [Presence] in Serum by [id number] 12:35:00 Test Item Value Reference Range Interpretation Comments Reagin Ab [Presence] in Serum by nonreactive nonreactive RPR (test code = 06058-7) [facility] Hospitalantibiotic sensitivity testing, [id number] 12:35:00 Test Item Value Reference Range Interpretation [...] Minimum inhibitory concentration (GUSTAVO) (test code = 69327-6) Piperacillin+Tazobactam <16 [Susceptibility] by Minimum inhibitory concentration [...] <0.5 inhibitory concentration (GUSTAVO) (test code = 74343-6) Aztreonam [Susceptibility] by Minimum <4 inhibitory concentration (GUSTAVO) (test code = 44-8) Cefuroxime [Susceptibility] by Minimum <4 inhibitory concentration (GUSTAVO) (test code = 34499-2) [facility] W Auto Differential panel - [id number] 12:35:00 Test Item Value Reference Range Interpretation Comments white blood count (test code = 12.4 K/uL 4.0-11.5 white blood count) red blood count (test code = red 3.63 M/uL 3.80-5.20 L blood count) hemoglobin (test code = 10.0 g/dL 10.5-15.7 L hemoglobin) hematocrit (test code = 31.4 % 34.0-50.0 hematocrit) Erythrocyte mean corpuscular 86.5 fL 86-100 volume [Entitic volume] (test code = 33593-8) mean corpuscular hemoglobin (test 27.5 pg 26.2-33.4 [...] 44.4-80.1 leukocytes in Blood (test code = 78627-4) Granulocytes Immature [#/volume] 0.1 K/uL 0.0-0.03 H in Blood (test code = 31386-1) lymphocyte% (test code = 15.7 % 10.0-50.0 lymphocyte%) mono % (test code = mono %) 5.7 % 3.6-12.0 eos % (test code = eos %) 0.3 % 0.0-5.4 Basophils/100 leukocytes in 0.2 % 0.1-1.2 Unspecified specimen (test code = 02509-1) Neutrophils.band form [#/volume] 9.61 K/uL 1.56-6.13 H in Blood (test code = 89517-2) Lymphocytes [#/volume] in 1.9 K/uL 1.18-3.74 Unspecified specimen by Automated count (test code = 13292-7) mono # (test code = mono #) 0.70 K/uL 0.24-0.86 eos # (test code = eos #) 0.04 K/uL 0.04-0.36 basophil # (test code = basophil 0.02 K/uL 0.01-0.08 #) NRBC% (test code = NRBC%) 0 /100 WBC 0-0.2 NRBC# (test code = NRBC#) 0 K/uL [facility] GroupHIV 1+2 Ab [Presence] in [id number] 12:35:00HIV P24 AgHIV-1/2 AbMatagoR[facility] GroupABO & Rh group [Type] in [id number] 12:35:00 Test Item Value Reference Range Interpretation Comments Rh [Type] in Blood (test code = 3+ 21995-6) ABO and Rh group panel - Blood O positive (test code = 57949-7) [facility] [Presence] in Serum or Plasma 2019-03-04 12:35:00 Test Item Value Reference Range Interpretation Comments Blood group antibody screen negative [Presence] in Serum or Plasma (test code = 890-4) [facility] HospitalBacteria identified in Urine by [id number] 12:35:00Bacteria Ur CultConerly Critical Care HospitalReagin Ab [Presence] in Serum by [id number] 12:35:00 Test Item Value Reference Range Interpretation Comments Reagin Ab [Presence] in Serum by nonreactive nonreactive RPR (test code = 41860-6) [facility], [id number] 12:35:00 Test Item Value Reference Range Interpretation [...] Minimum inhibitory concentration (GUSTAVO) (test code = 74065-8) Piperacillin+Tazobactam <16 [Susceptibility] by Minimum inhibitory concentration (GUSTAVO) (test code = 412-7) Ceftazidime [Susceptibility] by Minimum <1 inhibitory concentration (GUSTAVO) (test code = 133-9) Ceftriaxone [Susceptibility] by Minimum <1 inhibitory concentration (GUSTAVO) (test code = 141-2) Ciprofloxacin [Susceptibility] by <1 Minimum inhibitory concentration (GUSTVAO) (test code = 185-9) Imipenem [Susceptibility] by Minimum <1 inhibitory concentration (GUSTAVO) (test code = 279-0) Ampicillin+Sulbactam [Susceptibility] =8/4 by Minimum inhibitory concentration (GUSTAVO) (test code = 32-3) Ertapenem [Susceptibility] by Minimum <0.5 inhibitory concentration (GUSTAVO) (test code = 98620-9) Aztreonam [Susceptibility] by Minimum <4 inhibitory concentration (GUSTAVO) (test code = 44-8) Cefuroxime [Susceptibility] by Minimum <4 inhibitory concentration (GUSTAVO) (test code = 35548-4) [facility] W Auto Differential panel - [id number] 12:35:00 Test Item Value Reference Range Interpretation Comments white blood count (test code = 12.4 K/uL 4.0-11.5 white blood count) red blood count (test code = red 3.63 M/uL 3.80-5.20 L blood count) hemoglobin (test code = 10.0 g/dL 10.5-15.7 L hemoglobin) hematocrit (test code = 31.4 % 34.0-50.0 hematocrit) Erythrocyte mean corpuscular 86.5 fL 86-100 volume [Entitic volume] (test code = 76520-1) mean corpuscular hemoglobin (test 27.5 pg 26.2-33.4 [...] 44.4-80.1 leukocytes in Blood (test code = 33846-2) Granulocytes Immature [#/volume] 0.1 K/uL 0.0-0.03 H in Blood (test code = 46240-2) lymphocyte% (test code = 15.7 % 10.0-50.0 lymphocyte%) mono % (test code = mono %) 5.7 % 3.6-12.0 eos % (test code = eos %) 0.3 % 0.0-5.4 Basophils/100 leukocytes in 0.2 % 0.1-1.2 Unspecified specimen (test code = 84805-2) Neutrophils.band form [#/volume] 9.61 K/uL 1.56-6.13 H in Blood (test code = 49115-8) Lymphocytes [#/volume] in 1.9 K/uL 1.18-3.74 Unspecified specimen by Automated count (test code = 92542-5) mono # (test code = mono #) 0.70 K/uL 0.24-0.86 eos # (test code = eos #) 0.04 K/uL 0.04-0.36 basophil # (test code = basophil 0.02 K/uL 0.01-0.08 #) NRBC% (test code = NRBC%) 0 /100 WBC 0-0.2 NRBC# (test code = NRBC#) 0 K/[facility]L [facility] [Presence] in [id number] 12:35:00HIV P24 AgHIV-1/2 AbMataday kimball hospitala [facility] GroupABO & Rh group [Type] in [id number] 12:35:00 Test Item Value Reference Range Interpretation Comments Rh [Type] in Blood (test code = 3+ 49503-8) ABO and Rh group panel - Blood O positive (test code = 63886-5) [facility] antibody screen [Presence] in Serum or Plasma 2019-03-04 12:35:00 Test Item Value Reference Range Interpretation Comments Blood group antibody screen negative [Presence] in Serum or Plasma (test code = 890-4) [facility] GroupBacteria identified in Urine by [id number] 12:35:00Bacteria Ur CultMataday k[facility] hospitala Medical GroupReagin Ab [Presence] in Serum by [id number] 12:35:00 Test Item Value Reference Range Interpretation Comments Reagin Ab [Presence] in Serum by nonreactive nonreactive RPR (test code = 26383-6) [facility] Groupantib[facility] sensitivity testing, [id number] 12:35:00 Test Item Value Reference Range Interpretation [...] Minimum inhibitory concentration (GUSTAVO) (test code = 33051-8) Piperacillin+Tazobactam <16 [Susceptibility] by Minimum inhibitory concentration [...] <0.5 inhibitory concentration (GUSTAVO) (test code = 50042-5) Aztreonam [Susceptibility] by Minimum <4 inhibitory concentration (GUSTAVO) (test code = 44-8) Cefuroxime [Susceptibility] by Minimum <4 inhibitory concentration (GUSTAVO) (test code = 14339-4) [facility] W Auto Differential panel - [id number] 12:35:00 Test Item Value Reference Range Interpretation Comments white blood count (test code = 12.4 K/uL 4.0-11.5 white blood count) red blood count (test code = red 3.63 M/uL 3.80-5.20 L blood count) hemoglobin (test code = 10.0 g/dL 10.5-15.7 L hemoglobin) hematocrit (test code = 31.4 % 34.0-50.0 hematocrit) Erythrocyte mean corpuscular 86.5 fL 86-100 volume [Entitic volume] (test code = 21086-1) mean corpuscular hemoglobin (test 27.5 pg 26.2-33.4 [...] 44.4-80.1 leukocytes in Blood (test code = 10355-8) Granulocytes Immature [#/volume] 0.1 K/uL 0.0-0.03 H in Blood (test code = 45979-4) lymphocyte% (test code = 15.7 % 10.0-50.0 lymphocyte%) mono % (test code = mono %) 5.7 % 3.6-12.0 eos % (test code = eos %) 0.3 % 0.0-5.4 Basophils/100 leukocytes in 0.2 % 0.1-1.2 Unspecified specimen (test code = 52042-7) Neutrophils.band form [#/volume] 9.61 K/uL 1.56-6.13 H in Blood (test code = 39070-0) Lymphocytes [#/volume] in 1.9 K/uL 1.18-3.74 Unspecified specimen by Automated count (test code = 95737-1) mono # (test code = mono #) 0.70 K/uL 0.24-0.86 eos # (test code = eos #) 0.04 K/uL 0.04-0.36 basophil # (test code = basophil 0.02 K/uL 0.01-0.08 #) NRBC% (test code = NRBC%) 0 /100 WBC 0-0.2 NRBC# (test code = NRBC#) 0 K/uL [facility] GroupHIV 1+2 Ab [Presence] in [id number] 12:35:00HIV P24 AgHIV-1/2 [facility] GroupABO & Rh group [Type] in [id number] 12:35:00 Test Item Value Reference Range Interpretation Comments Rh [Type] in Blood (test code = 3+ 40298-4) ABO and Rh group panel - Blood O positive (test code = 43704-8) [facility] GroupBlood group antibody screen [Presence] in Serum or Plasma 2019-03-04 12:35:00 Test Item Value Reference Range Interpretation Comments Blood group antibody screen negative [Presence] in Serum or Plasma (test code = 890-4) [facility] GroupBacteria identified in Urine by [id number] 12:35:00Bacteria Ur CultSt. [facility] GroupReagin Ab [Presence] in Serum by [id number] 12:35:00 Test Item Value Reference Range Interpretation Comments Reagin Ab [Presence] in Serum by nonreactive nonreactive RPR (test code = 91180-7) [facility], [id number] 12:35:00 Test Item Value Reference Range Interpretation [...] Minimum inhibitory concentration (GUSTAVO) (test code = 93664-1) Piperacillin+Tazobactam <16 [Susceptibility] by Minimum inhibitory concentration [...] <0.5 inhibitory concentration (GUSTAVO) (test code = 85152-4) Aztreonam [Susceptibility] by Minimum <4 inhibitory concentration (GUSTAVO) (test code = 44-8) Cefuroxime [Susceptibility] by Minimum <4 inhibitory concentration (GUSTAVO) (test code = 57617-3) [facility] W Auto Differential panel - [id number] 12:35:00 Test Item Value Reference Range Interpretation Comments white blood count (test code = 12.4 K/uL 4.0-11.5 white blood count) red blood count (test code = red 3.63 M/uL 3.80-5.20 L blood count) hemoglobin (test code = 10.0 g/dL 10.5-15.7 L hemoglobin) hematocrit (test code = 31.4 % 34.0-50.0 hematocrit) Erythrocyte mean corpuscular 86.5 fL 86-100 volume [Entitic volume] (test code = 33505-2) mean corpuscular hemoglobin (test 27.5 pg 26.2-33.4 [...] 44.4-80.1 leukocytes in Blood (test code = 02983-5) Granulocytes Immature [#/volume] 0.1 K/uL 0.0-0.03 H in Blood (test code = 02544-9) lymphocyte% (test code = 15.7 % 10.0-50.0 lymphocyte%) mono % (test code = mono %) 5.7 % 3.6-12.0 eos % (test code = eos %) 0.3 % 0.0-5.4 Basophils/100 leukocytes in 0.2 % 0.1-1.2 Unspecified specimen (test code = 62695-2) Neutrophils.band form [#/volume] 9.61 K/uL 1.56-6.13 H in Blood (test code = 67988-4) Lymphocytes [#/volume] in 1.9 K/uL 1.18-3.74 Unspecified specimen by Automated count (test code = 86176-9) mono # (test code = mono #) 0.70 K/uL 0.24-0.86 eos # (test code = eos #) 0.04 K/uL 0.04-0.36 basophil # (test code = basophil 0.02 K/uL 0.01-0.08 #) NRBC% (test code = NRBC%) 0 /100 WBC 0-0.2 NRBC# (test code = NRBC#) 0 K/uL [facility] GroupHIV 1+2 Ab [Presence] in [id number] 12:35:00HIV P24 AgHIV-1/2 [facility]Mat[facility] GroupABO & Rh group [Type] in [id number] 12:35:00 Test Item Value Reference Range Interpretation Comments Rh [Type] in Blood (test code = 3+ 22907-3) ABO and Rh group panel - Blood O positive (test code = 04384-7) [facility] [Presence] in Serum or Plasma 2019-03-04 12:35:00 Test Item Value Reference Range Interpretation Comments Blood group antibody screen negative [Presence] in Serum or Plasma (test code = 890-4) [facility] HospitalBacteria identified in Urine by [id number] 12:35:00Bacteria Ur CultConerly Critical Care HospitalReagin Ab [Presence] in Serum by [id number] 12:35:00 Test Item Value Reference Range Interpretation Comments Reagin Ab [Presence] in Serum by nonreactive nonreactive RPR (test code = 39218-4) [facility], [id number] 12:35:00 Test Item Value Reference Range Interpretation [...] Minimum inhibitory concentration (GUSTAVO) (test code = 86574-6) Piperacillin+Tazobactam <16 [Susceptibility] by Minimum inhibitory concentration [...] <0.5 inhibitory concentration (GUSTAVO) (test code = 82858-8) Aztreonam [Susceptibility] by Minimum <4 inhibitory concentration (GUSTAVO) (test code = 44-8) Cefuroxime [Susceptibility] by Minimum <4 inhibitory concentration (GUSTAVO) (test code = 40710-8) [facility] virus surface Ag [Presence] in Serum 2019-03-04 02:36:00 Test Item Value Reference Range Interpretation Comments .hepatitis B surface antigen (test negative negative code = .hepatitis B surface antigen) [facility] B virus surface Ag [Presence] in Serum 2019-03-04 02:36:00 Test Item Value Reference Range Interpretation Comments .hepatitis B surface antigen (test negative negative code = .hepatitis B surface antigen) [facility] B virus surface Ag [Presence] in Serum 2019-03-04 02:36:00 Test Item Value Reference Range Interpretation Comments .hepatitis B surface antigen (test negative negative code = .hepatitis B surface antigen) [facility] B virus surface Ag [Presence] in Serum 2019-03-04 02:36:00 Test Item Value Reference Range Interpretation Comments .hepatitis B surface antigen (test negative negative code = .hepatitis B surface antigen) [facility] B virus surface Ag [Presence] in Serum 2019-03-04 02:36:00 Test Item Value Reference Range Interpretation Comments .hepatitis B surface antigen (test negative negative code = .hepatitis B surface antigen) [facility]
[2022-06-01 22:07] LABS: Urine Blood Negative (Negative); Urine Glucose Negative (Negative); Urine Protein Trace (Negative); Urine Specific Gravity >=1.030 (1.005-1.030)
[2022-06-01] MEDS ORDERED: ONDANSETRON 4 MG/2 ML VIAL ONE (22:12)
[2022-06-01] MEDS ORDERED: KETOROLAC 30 MG/ML INJ ONE (22:12)
[2022-06-01] MEDS ORDERED: NA CHLORIDE 0.9% 500 ML ONE (22:13)
[2022-06-01] MEDS ORDERED: FAMOTIDINE 20 MG/2 ML VIAL IV ONE (22:13)
[2022-06-01 22:19] LABS: Absolute Lymphocytes (CBC) 2.8 K/uL (0.7-4.9); Lymphocytes % 29.6 % (15.3-44.8); MCV 78.1 fL (80-100); MPV 9.1 fL (7.6-11.3); RBC Red Blood Cell Count 4.47 M/uL (3.86-4.86)
[2022-06-01 22:25] LABS: Urine Bacteria None Seen /HPF (<20); Urine Crystals Unidentified Few /HPF (None Seen); Urine Mucus Slight /HPF (None Seen); Urine RBC <5 /HPF (None Seen)
[2022-06-01 22:31] LABS: Albumin 3.8 g/dL (3.4-5.0); Bilirubin Total 0.2 mg/dL (0.2-1.0); Protein, Total 6.8 g/dL (6.4-8.2)
[2022-06-01 22:34] LABS: Urine Specific Gravity/Preg >1.030 (1.005-1.030)
[2022-06-01] MEDS ORDERED: FENTANYL CITR 100 MCG/2 ML ONE (23:47)
--- NOTE | 2022-06-02 00:57 | ER ---
Nurse's Notes [facility] Emelina Name: Gloria Modi Age: 26 yrs Sex: Female : 1995 Arrival Date: 06/01/2022 Time: 20:53 Bed 9 Private MD: Diagnosis: Abdominal pain, unspecified;Dorsalgia, unspecified Presentation: 06/01 20:57 Chief complaint: Patient states: Upper abdominal pain of 10 that radiates to right pf1 flank,onset 2 days ago with nausea and diarrhea. Patient stated was treated at [facility] yesterday for Pyelonephritis and pancreatitis, was discharged with prescriptions of zofran, cipro 500mg and tramadol. Patient stated took Tramadol at 1700. Coronavirus screen: Vaccine status: Patient reports receiving the 1st dose of the Covid vaccine. Client denies travel out of the [place] in the last 14 days. At this time, the client does not indicate any symptoms associated with coronavirus-19. Ebola Screen: Patient negative for fever greater than or equal to 101.5 degrees Fahrenheit, and additional compatible Ebola Virus Disease symptoms. Initial Sepsis Screen: Does the patient meet any 2 criteria? No. Patient's initial sepsis screen is negative. Does the patient have a suspected source of infection? No. Patient's initial sepsis screen is negative. Risk Assessment: Do you want to hurt yourself or someone else? Patient reports no desire to harm self or others. 20:57 Method Of Arrival: Ambulatory pf1 20:57 Acuity: NICO 3 pf1 Historical: - Allergies: 21:03 Tylenol # 3; pf1 - Immunization history:: Adult Immunizations unknown. - Social history:: Smoking status: unknown. Screenin:25 [facility] ED Fall Risk Assessment (Adult) History of falling in the last 3 months, bb including since admission No falls in past 3 months (0 pts). Abuse screen: Denies threats or abuse. Nutritional screening: No deficits noted. Tuberculosis screening: No symptoms or risk factors identified. Assessment: 22:25 General: Appears in no apparent distress. slender. Pain: Complains of pain in back and bb abdomen. Neuro: Level of Consciousness is awake, alert, obeys commands, Oriented to person, place, time, situation. Cardiovascular: Capillary refill < 3 seconds Patient's skin is warm and dry. Respiratory: Respiratory effort is even, unlabored, Respiratory pattern is regular. GI: Abdomen is non-distended, Bowel sounds present X 4 quads. Abd is soft X 4 quads. Derm: Skin is pink, warm \T\ dry. Musculoskeletal: Circulation, motion, and sensation intact. 23:53 Reassessment: Patient is alert, oriented x 3, equal unlabored respirations, skin bb warm/dry/pink. awaiting diagnostic results, IV site intact with no erythema or edema noted pt medicated for pain per provider order see JYOTI family at bedside. 06/02 00:42 Reassessment: Patient is alert, oriented x 3, equal unlabored respirations, skin bb warm/dry/pink. pt states pain medication helped but did not last long. 01:08 Reassessment: Patient is alert, oriented x 3, equal unlabored respirations, skin bb warm/dry/pink. pt verbalized understanding of and agrees to plan of care discharge instructions given pt ambulated with steady gait to exit accompanied by family. Vital Signs: 06/01 20:57 BP 107 / 70; Pulse 76; Resp 18; Temp 97.7; Pulse Ox 95% on R/A; Weight 40.82 kg; Height pf1 5 ft. 0 in. (152.40 cm); Pain 10/10; 22:43 BP 104 / 70; Pulse 66; Resp 17; Temp 98.1(O); Pulse Ox 100% on R/A; zm 06/02 00:41 BP 101 / 71; Pulse 62; Resp 16 S; Temp 98.1(O); Pulse Ox 99% on R/A; bb 06/01 20:57 Body Mass Index 17.58 (40.82 kg, 152.40 cm) pf1 ED Course: 06/01 20:53 Patient arrived in ED. jj6 20:57 Alden Snider PA is PHCP. cp 20:57 Maritza Zapata MD is Attending Physician. cp 21:02 Triage completed. pf1 22:07 Inserted saline lock: 20 gauge in left antecubital area, using aseptic technique. Blood zm collected. 22:08 CBC with Diff Sent. zm 22:08 CMP Sent. zm 22:08 Lipase Sent. zm 22:08 Urine Microscopic Only Sent. zm 22:25 Patient has correct armband on for positive identification. Call light in reach. bb 22:53 Madonna Daley, RN is Primary Nurse. bb 23:22 CT Abd/Pelvis - IV Contrast Only In Process Unspecified. EDMS 06/02 01:07 No provider procedures requiring assistance completed. IV discontinued, intact, bb bleeding controlled, No redness/swelling at site. Pressure dressing applied. Administered Medications: 06/01 22:22 Drug: Ketorolac 10 mg 10 mg Route: IVP; Site: left antecubital; bb 23:52 Follow up: Response: No change in condition bb 22:25 Drug: NS 0.9% 500 ml Route: IV; Rate: bolus; Site: left antecubital; bb 23:52 Follow up: IV Status: Completed infusion; IV Intake: 450ml bb 22:26 Drug: Zofran (Ondansetron) 4 mg Route: IVP; Site: left antecubital; bb 23:52 Follow up: Response: No adverse reaction bb 22:28 Drug: Pepcid (famotidine) 20 mg Route: IVP; Site: left antecubital; bb 23:52 Follow up: Response: No adverse reaction bb 23:52 Drug: fentaNYL (PF) 25 mcg Route: IVP; Site: left antecubital; bb 06/02 00:19 Follow up: Response: Pain is decreased bb 00:58 Drug: HYDROcodone-acetaminophen 5 mg-325 mg 1 tabs Route: PO; bb 01:07 Follow up: Response: Medication administered at discharge. bb Medication: 06/01 22:25 VIS not applicable for this client. bb Intake: 23:52 IV: 450ml; Total: 450ml. bb Outcome: 06/02 00:57 Discharge ordered by . cp 01:08 Discharged to home ambulatory, with family. bb 01:08 Condition: stable 01:08 Discharge instructions given to patient, Instructed on discharge instructions, follow up and referral plans. medication usage, Demonstrated understanding of instructions, follow-up care, medications, Prescriptions given X 3. 01:09 Patient left the ED. bb Signatures: Dispatcher [employer] EDND Madonna Daley, RN RN bb Alden Snider PA PA cp Jeffries, Jennifer jj6 Nereyda Willis Pamala RN RN pf1
--- NOTE | 2022-06-02 00:57 | EDPHYS ---
Physician Documentation [facility] Name: Gloria Modi Age: 26 yrs Sex: Female : 1995 Arrival Date: 06/01/2022 Time: 20:53 Bed 9 Private MD: ED Physician Maritza Zapata HPI: 06/01 21:15 This 26 yrs old Female presents to ER via Ambulatory with complaints of Abdominal Pain, cp Low Back Pain, Nausea. 21:15 The patient presents with abdominal pain in the upper abdomen. Onset: The cp symptoms/episode began/occurred 2 day(s) ago. Associated signs and symptoms: Pertinent positives: right flank pain, nausea, diarrhea. The symptoms are described as constant. Severity of pain: in the emergency department the pain is unchanged despite home interventions. Patient presents to ED with c/o upper abdomen and flank pain. Reports being seen at [facility] yesterday and diagnosed with elevated pancreatic enzymes and infection of kidney. Patient reports she is concerned because she was discharged and continues to have pain. Historical: - Allergies: 21:03 Tylenol # 3; pf1 - Immunization history:: Adult Immunizations unknown. - Social history:: Smoking status: unknown. ROS: 21:20 Constitutional: Negative for body aches, chills, fever, poor PO intake. cp 21:20 Eyes: Negative for injury, pain, redness, and discharge. cp 21:20 ENT: Negative for drainage from ear(s), ear pain, sore throat, difficulty swallowing, difficulty handling secretions. 21:20 Cardiovascular: Negative for chest pain, edema, palpitations. 21:20 Respiratory: Negative for cough, shortness of breath, wheezing. 21:20 Abdomen/GI: Positive for abdominal pain, nausea, Negative for vomiting, diarrhea, constipation. 21:20 Back: Positive for flank pain, on the right. 21:20 : Positive for vaginal bleeding, Negative for urinary symptoms. 21:20 Neuro: Negative for altered mental status, dizziness, headache, numbness, weakness. 21:20 All other systems are negative. Exam: 21:25 Constitutional: The patient appears in no acute distress, alert, awake, non-toxic, well cp developed, well nourished, uncomfortable. 21:25 Head/Face: Normocephalic, atraumatic. cp 21:25 Eyes: Periorbital structures: appear normal, Conjunctiva: normal, no exudate, no injection, Sclera: no appreciated abnormality, Lids and lashes: appear normal, bilaterally. 21:25 ENT: External ear(s): are unremarkable, Nose: is normal, Mouth: is normal, Posterior pharynx: is normal, airway is patent, no erythema, no exudate. 21:25 Neck: ROM/movement: is normal, is supple, without pain, no range of motions limitations. 21:25 Chest/axilla: Inspection: normal. 21:25 Cardiovascular: Rate: normal, Rhythm: regular. 21:25 Respiratory: the patient does not display signs of respiratory distress, Respirations: normal, no use of accessory muscles, no retractions, labored breathing, is not present, Breath sounds: are clear throughout, no decreased breath sounds, no stridor, no wheezing. 21:25 Abdomen/GI: Inspection: abdomen appears normal, Bowel sounds: active, all quadrants, Palpation: soft, in all quadrants, moderate abdominal tenderness, in the right upper quadrant and right lower quadrant, rebound tenderness, is not appreciated, involuntary guarding, is not appreciated. 21:25 Back: pain, that is moderate, of the right mid back, ROM is painful, with all movement. 21:25 Skin: cellulitis, is not appreciated, no rash present. 21:25 Neuro: Orientation: to person, place \T\ time. Mentation: is normal, Motor: moves all fours, strength is normal, Gait: is steady. Vital Signs: 20:57 BP 107 / 70; Pulse 76; Resp 18; Temp 97.7; Pulse Ox 95% on R/A; Weight 40.82 kg; Height pf1 5 ft. 0 in. (152.40 cm); Pain 10/10; 22:43 BP 104 / 70; Pulse 66; Resp 17; Temp 98.1(O); Pulse Ox 100% on R/A; zm 06/02 00:41 BP 101 / 71; Pulse 62; Resp 16 S; Temp 98.1(O); Pulse Ox 99% on R/A; bb 06/01 20:57 Body Mass Index 17.58 (40.82 kg, 152.40 cm) pf1 MDM: 06/01 21:01 Patient medically screened. cp 06/02 00:56 Data reviewed: vital signs, nurses notes, lab test result(s), radiologic studies, CT cp scan. 00:56 Consideration of Admission/Observation Escalation of care including cp admission/observation considered. I considered the following discharge prescriptions or medication management in the emergency department Medications were administered in the Emergency Department. See MAR. Test considered but Not performed: Ultrasound pelvis. Counseling: I had a detailed discussion with the patient and/or guardian regarding: the historical points, exam findings, and any diagnostic results supporting the discharge/admit diagnosis, lab results, radiology results, the need for outpatient follow up, a family practitioner, to return to the emergency department if symptoms worsen or persist or if there are any questions or concerns that arise at home. Response to treatment: the patient's symptoms have mildly improved after treatment, and as a result, I will discharge patient. Special discussion: Based on the patient's Hx, exam, and Dx evaluation, there is no indication for emergent surgery or inpatient Tx. It is understood by the patient/guardian that if the Sx's persist or worsen they need to return immediately for re-evaluation. ED course: VSS. Reviewed results of today's labs and CT that were negative for pancreatitis and/or pyelonephritis. Patient appears non-toxic, pain mildly improved. CT reports tampon in vaginal vault, patient aware and reports currently on menses. Will discharge to home for continued monitoring. 06/01 21:07 Order name: CBC with Diff; Complete Time: 22:34 cp 06/01 22:35 Interpretation: Normal except: HGB 11.6; HCT 35.0; MCV 78.1; MCH 26.0; RDW 15.7. cp 06/01 21:07 Order name: CMP; Complete Time: 22:34 cp 06/01 21:07 Order name: Lipase; Complete Time: 22:34 cp 06/01 21:07 Order name: Urine Microscopic Only; Complete Time: 22:34 cp 06/01 22:08 Order name: Urine Dipstick-Ancillary; Complete Time: 22:34 EDMS 18 00:56 Interpretation: Normal except: UPROT Trace. cp 06/01 22:09 Order name: Urine --Ancillary (enter results); Complete Time: 22:34 ds4 06/01 21:07 Order name: IV Saline Lock; Complete Time: 22:08 cp 06/01 22:35 Order name: CT Abd/Pelvis - IV Contrast Only cp 06/01 21:07 Order name: Labs collected and sent; Complete Time: 22:08 cp 06/01 21:07 Order name: Urine Dipstick-Ancillary (obtain specimen); Complete Time: 22:08 cp 06/01 21:07 Order name: Urine Test (obtain specimen); Complete Time: 22:08 cp Administered Medications: 06/01 22:22 Drug: Ketorolac 10 mg 10 mg Route: IVP; Site: left antecubital; bb 23:52 Follow up: Response: No change in condition bb 22:25 Drug: NS 0.9% 500 ml Route: IV; Rate: bolus; Site: left antecubital; bb 23:52 Follow up: IV Status: Completed infusion; IV Intake: 450ml bb 22:26 Drug: Zofran (Ondansetron) 4 mg Route: IVP; Site: left antecubital; bb 23:52 Follow up: Response: No adverse reaction bb 22:28 Drug: Pepcid (famotidine) 20 mg Route: IVP; Site: left antecubital; bb 23:52 Follow up: Response: No adverse reaction bb 23:52 Drug: fentaNYL (PF) 25 mcg Route: IVP; Site: left antecubital; bb 06/02 00:19 Follow up: Response: Pain is decreased bb 00:58 Drug: HYDROcodone-acetaminophen 5 mg-325 mg 1 tabs Route: PO; bb 01:07 Follow up: Response: Medication administered at discharge. bb Disposition Summary: 06/02/22 00:57 Discharge Ordered Location: Home cp Problem: new cp Symptoms: have improved cp Condition: Stable cp Diagnosis - Abdominal pain, unspecified cp - Dorsalgia, unspecified cp Followup: cp - With: Private Physician - When: 2 - 3 days - Reason: Recheck today's complaints Discharge Instructions: - Discharge Summary Sheet cp - Abdominal Pain, Adult cp - Acute Back Pain, Adult cp Forms: - Medication Reconciliation Form cp - Thank You Letter cp - Antibiotic Education cp - Prescription Opioid Use cp Prescriptions: - indomethacin 25 mg Oral capsule - take 1 capsule by ORAL route 2 times per day with food; 20 capsule; Refills: 0, cp Product Selection Permitted - Zofran 4 mg Oral Tablet - take 1 tablet by ORAL route every 12 hours As needed; 20 tablet; Refills: 0, cp Product Selection Permitted - dicyclomine 20 mg Oral Tablet - take 1 tablet by ORAL route 4 times per day; 30 tablet; Refills: 0, Product cp Selection Permitted Signatures: Dispatcher [employer] Madonna Fields RN RN bb Alden Snider PA PA cp finley, Pamala, RN RN pf1 Corrections: (The following items were deleted from the chart) 23:55 23:51 This 26 yrs old Female presents to ER via Ambulatory with complaints of Abdominal cp Pain, Low Back Pain, Nausea. cp
[2022-06-02] MEDS ORDERED: HYDROCODONE/APAP 5/325 MG TAB ONE (01:03)
[2022-06-02 01:14] VITALS: TEMP 98.1
[2022-06-02 01:16] VITALS: BP 101/71; O2SAT 99
--- NOTE | 2022-06-04 11:27 | RAD REPORT ---
EXAM DESCRIPTION: CT - Abdomen Pelvis W Contrast - 06/02/2022 12:28 am CLINICAL HISTORY: The patient is 26 years old and is Female; ABD PAIN [facility] MAIN TECHNIQUE: Axial computed tomography images of the abdomen and pelvis with intravenous contrast. S agittal and coronal reformatted images were created and reviewed. This CT exam was performed using one or more of the following dose reduction techniques: automated exposure control, adjustment of t he mA and/or kV according to patient size, and/or use of iterative reconstruction technique. COMPARISON: 12/28/2021 CT abdomen pelvis FINDINGS: LUNG BASES: Unremarkable. No mass. No consolidation. ABDOMEN: LIVER: Single too small to characterize low-attenuation focus within the IVb hepatic segment. No d edicated imaging follow-up recommended for this particular finding. GALLBLADDER AND BILE DUCTS: Unremarkable. No calcified stones. No ductal dilation. PANCREAS: Unremarkable. No mass. No ductal dilation. SPLEEN: Unremarkable. No splenomegaly. ADRENALS: Unremarkable. No mass. KIDNEYS AND URETERS: Unremarkable. No solid mass. No hydronephrosis. STOMACH AND BOWEL: Unremarkable. No obstruction. No mucosal thickening. PELVIS: APPENDIX: No findings to suggest acute appendicitis. BLADDER: Unremarkable. No mass. REPRODUCTIVE: Tampon demonstrated within the vaginal canal. Otherwise unremarkable as visualized. ABDOMEN and PELVIS: INTRAPERITONEAL SPACE: Trace simple free fluid noted within the pelvis, within normal physiologic limits. No free air. BONES/JOINTS: No fracture, subluxation, or dislocation. SOFT TISSUES: Umbilical piercing noted. VASCULATURE: Unremarkable. No abdominal aortic aneurysm. LYMPH NODES: Unremarkable. No enlarged lymph nodes. IMPRESSION: No acute findings in the abdomen or pelvis. Electronically signed by: Mo Mcgrath MD 06/01/2022 11:48 PM [employer] Due to temporary technical issues with the PACS/Fluency reporting system, reports are being signed by the in house radiologists without review as a courtesy to insure prompt reporting. The interpreting radiologist is fully responsible for the content of the report.
== END 2022-06-02 01:09 | disposition home or self-care (01) ==
LOC: ER 20:50
DX: R10.10 Upper abdominal pain, unspecified (principal); M54.9 Dorsalgia, unspecified; Z88.5 Allergy status to narcotic agent
CPT/HCPCS: 96361; 85025; 36415; 81025; 83690; 80053; 74177; 96375; 96374; 99284; Q9967; J3010; J7040; J2405; 81003; 81015

== ENCOUNTER 2022-10-31 18:16 | Emergency (ER) | payer OTHER ==
--- OUTSIDE RECORDS SUMMARY | 2022-10-31 18:31 | XMS REPORT | Continuity of Care Document ---
:1995 Author Organization [facility] t Address [address] [facility] [address] [place] [address] Support Name Relationship Address Phone Garret Merino Spouse [address] [phone] [address] [place] [address] Josefina Mendoza Parent [id number] [facility] [place] [address] SEKOU [place]DS MD Emergency Provider [address] [place] [address] PHYSICIAN, NO Primary Care Physician [address] [facility] [phone] [place] [address] ISABEL ROBERT Next of Kin [address] [place] [address] TAYLOR DUMONT MD Emergency Provider [address] [facility] [phone] [place] [address] JANNETH VELASQUEZ MD Emergency Provider [address] [phone] [place] [address] MD ROM BUNDYNGTON Emergency Provider [address] [place] [address] NASRA MCLEAN Unavailable [address] [place] [address] MD EMILY ARMAS Emergency Provider [address] [place] [address] MD CEASAR MENESES Emergency Provider [address] [place] [address] CARIDAD, Unavailable [address] Unavailable [place]OA) [place] [address] DO MADAN BRIGHT Emergency Provider [address] [facility] [email or web address] [id number] MD NATHAN YAO Emergency Provider [address] [place] [address] [address]RA [address]LEAN Un[address] [place]availabl [place] [id number] TORI GIBBONS Primary Care Physician [address] [facility] 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 [place] [id number] MD HERNANDEZ PENNY Emergency Provider [address] [place] [id number] MD LOKI RAMOS Other Provider [address] [place] [id number] ISABEL SUAREZ Family Member [address] Un[address] [place] [id number] Care Team Providers Name Role Phone Gibbons EMBROIDERY CUTTER, Tori Primary Care Physician TORI GIBBONS Attending Clinician Unavailable Edwige_Gemma Attending Clinician Unavailable Caitlin Attending Clinician Unavailable Riddhi Attending Clinician Unavailable Pob, [facility] Main Attending Clinician Unavailable Joanne Hernandez MD Attending Clinician JOANNE HERNANDEZ Attending Clinician Unavailable Doctor Unassigned, [place] Attending Clinician Unavailable RAJAT YUEN Attending Clinician Unavailable Elan Salmeron MD Attending Clinician [phone] Rajat Yuen MD Attending Clinician ELAN SALMERON Attending Clinician Unavailable Brady Pedro Attending Clinician BRADY BRANTLEY Attending Clinician Unavailable LUKAS MORENO Attending Clinician Unavailable LUKAS MORENO Attending Clinician Unavailable LEON SERRATO Attending Clinician Unavailable LIANA MEJIA Attending Clinician Unavailable LEVAR Attending Clinician Unavailable IGNACIO RIZZO Attending Clinician Unavailable YOLETTE LEAL Attending Clinician Unavailable Lukas Moreno MD Attending Clinician Bertha Attending Clinician Unavailable HERNANDEZ PENNY Attending Clinician Unavailable LOKI RAMOS Attending Clinician Unavailable NATHAN HARP Attending Clinician Unavailable MADAN BRIGHT Attending Clinician Unavailable Avery Attending Clinician Unavailable ANABEL CUENCA Attending Clinician Unavailable MARTINEZ HERNADEZ Attending Clinician Unavailable CEASAR MENESES Attending Clinician Unavailable EMILY ARMAS Attending Clinician Unavailable ENE BUNDY Attending Clinician Unavailable HARPER BADILLO Attending Clinician Unavailable JANNETH VELASQUEZ Attending Clinician Unavailable TAYLOR DUMONT Attending Clinician Unavailable SEKOU HAMMONDS Attending Clinician Unavailable MARBIN CUMMINGS Attending Clinician Unavailable ROS REICH Attending Clinician Unavailable LUX VERMA Attending Clinician Unavailable Elin Admitting Clinician Unavailable Caitlin Admitting Clinician Unavailable Riddhi Admitting Clinician Unavailable RAJAT YUEN Admitting Clinician Unavailable ELAN SALMERON Admitting Clinician Unavailable BRADY BRANTLEY Admitting Clinician Unavailable LEVAR Admitting Clinician Unavailable Alfredo_[place] Admitting Clinician Unavailable Luz Elena_Toy Admitting Clinician Unavailable ANABEL CUENCA Admitting Clinician Unavailable Payers Payer Name Policy Type Policy Number Effective Date Expiration Date [facility] [id number] 2020 CHOICE (MEDICAID 00:00:00 REPLACEMENT - HMO) MEDICAID COMM [id number] 2022 [place]ALTH [place] 00:00:[place] [id number] [place] [facility] [id number] 2019 [facility] (MEDICAID 00:00:00 HMO) Problems Condition Condition Condition Status Onset Resolution Last Treating Co mments Source Name Details Category Date Date Treatment Clinician Date Generalize Generalize Problem Active [facility] d anxiety d Anxiety 6-26 da disorder Disorder 00:00: Medica l 00 Group Right Right Problem Active [place] upper Upper 6-26 da quadrant Quadrant 00:00: Medica l pain Pain 00 Group Underweigh Underweigh Problem Active [facility] t t 5-21 da 00:00: Medical 00 Group Body mass Body Mass Problem Active [facility] index less Index Less 5-21 da than 20 than 20 00:00: Medical 00 Group MRI scan MRI Scan Problem Active [place] [facility] abnormal Abnormal 5-15 da 00:00: Medical [address] of Problem Active [place] abdomen Abdomen 4-27 da abnormal Abnormal 00:00: Medica l 00 Group Functional Functional Problem Active [facility] abdominal Abdominal 4-27 da pain Pain 00:00: [facility] syndrome Syndrome 00 al [facility]re[facility] Abdominal Abdominal Problem Active [place] pain Pain 4-17 da 00:00: Medical 00 Group Liver Liver Problem Active [place] function Function 4-17 da tests Tests 00:00: Medical outside outside 00 Group reference Reference range Range [place]ol[place]o Choledocho Disease Active [facility] lithiasis lithiasis 4-14 [facility] 00:00: Medical 00 Center Pain in Pain in Problem Active [place] pelvis Pelvis 3-23 da 00:00: Medical 00 Group Unintentio Unintentio Problem Active [facility] nal weight nal Weight 3-23 da loss Loss 00:00: Medical 00 Group Hyperglyce Hyperglyce Problem Active [facility] carlos carlos 2-28 da 00:00: Medical Group Iron Iron Problem Active [place] deficiency Deficiency 2-27 da 00:00: Medical 00 Group Vitamin D Vitamin D Problem Active [facility] [place] deficiency Deficiency 2-27 da 00:00: Medical 00 Group Iron Iron Problem Active [place] deficiency Deficiency 2-27 da anemia Anemia 00:00: Medical 00 Group Guillain-B Guillain-B Problem Active [facility] arr?syndro arr?Syndro 2-23 da me me 00:00: Medical 00 Group Anemia Anemia Problem Active [place] 2-20 da 00:00: Medical 00 Group Pancreatit Pancreatit Problem Active M [facility] is is 2-20 da 00:00: Medical 00 Group Pyelonephr Pyelonephr Problem Active [facility] itis itis 2-20 da 00:00: Medical 00 Group Streptococ Streptococ Problem Active [facility] cele sore clee Sore 1-31 da throat Throat 00:00: Medical 00 Group Cough Cough Problem Active [facility] 6-09 da 00:00: Medical 00 Group Mixed Mixed Problem Active [place] anxiety Anxiety 6-07 da and and 00:00: Medical depressive Depressive 00 Gr oup disorder Disorder Respirator Respirator Problem Active M [facility] y y 6-04 da syncytial Syncytial 00:00: [facility] cele virus Virus 00 Group infection Infection Acute Acute Problem Active [place] pharyngiti Pharyngiti 6-04 da s s 00:00: Medical 00 Group Exposure Exposure Problem Active [place] to to 6-04 da SARS-CoV-2 SARS-CoV-2 00:00: Md dical 00 Group 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 00:00: [place] [address] Medical Branch Severe Severe Problem Active [place] anxiety Anxiety [...] growth Growth 1-02 da restrictio Restrictio 00:00: Md dical n n 00 Group Small for Small for Problem Active 2018-04 [facility] gestationa Gestationa 2-16 da l age l Age 00:00: Medical fetus Fetus 00 Group Candidiasi Candidiasi Problem Active 2018-04 [facility] s of s of 2-02 da vagina Vagina 00:00: Medical 00 Group Glucose Glucose Problem Active 2018-04 [place] tolerance Tolerance 1-25 da test Test 00:00: Medical during During 00 Group - baby not - Baby Not yet Yet delivered Delivered outside outside reference Reference range Range Bacterial Bacterial Problem Active 2018-04 [facility] vaginosis Vaginosis 1-25 da in in 00:00: Medical 00 Grou p 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 MRSA MRSA Disease Active [facility]rick (methicill (methicill 05-22 He alth in in 00:00: resistant resistant 00 staph staph aureus) aureus) culture culture positive positive Impetigo Impetigo Disease Active Romeli s 2-05 Health 00:00: 00 History of History of Disease Active H arris MRSA MRSA 205 Health infection infection 00:00: 00 Abscess Abscess Disease Active [facility] 2 Health 00:00: 00 Rash Rash Disease Active [facility] 2 Health 00:00: 00 Boil Boil Disease Active 2012-04 [facility] 04-27 Health 00:00: 00 No known No known Disease Unive rs active active ity of problems problems [facility] Allergies, Adverse Reactions, Alerts Allergy Allergy Status Severity Reaction(s) Onset Inactive Treating Comm ents Source Name Type Date Date Clinician LATEX [facility] ACETAMIN Allergy Active [facility] DEINE 00:00[facility] Medical 00 Center Latex Propensi Active [facility] ty to 4-14 [facility] adverse 00:00: Medical reaction 00 [place] s Acetamin Propensi Active [facility] ophen-Co ty to 4-14 [facility] deine adverse 00:00: Medical reaction 00 [place] s ACETAMIN DRUG Active Other-Cmnt Univ ers OPHEN-CO 3-31 ity of DEINE 00:00: [place] 00 Medical Branch POLLEN DRUG Active [facility] Univers EXTRACTS INGREDI 3-31 ity of 00:00: 00 Medical Branch Pollen Drug Active Rash Univers Extracts Allergy 3-31 ity of 00:00: 00 Medical Branch Acetamin Propensi Active Other - See Chest U nivers ophen-Co ty to comments 3-31 pain ity of deine adverse 00:00: [place] reaction 00 Medical s Branch NO KNOWN Drug Active Univers ALLERGIE Class ity of S [facility] Family History Family Member Diagnosis Comments Start Date Stop Date Source Maternal grandfather [facility] Maternal grandfather Hypertension [facility] Maternal grandfather Cancer [facility]aternal grandfather Diabetes [facility] Paternal grandmother Cancer [facility] Social History Social Habit Start Date Stop Date Quantity Comments Source Gender identity [facility] Sexual orientation [facility]OH [facility] Center History of tobacco Cigarette Smoker University of use [facility] Exposure to 2022-07-22 2022-08-01 Not sure University of SARS-CoV-2 (event) 00:00:00 12:08:00 [facility] History SDOH 2022-07-28 2022-07-28 2 MARITZA [facility] Transport Med 00:00:00 00:00:[address] History [facility] 2022-07-28 2022-07-28 2 MARITZA [facility] Housing Unable to 00:00:00 00:00:00 Medical Center Pay History [facility] 2022-07-28 2022-07-28 1 [facility] Housing Places 00:00:00 00:00:00 Medical Ce nter Lived History [facility] 2022-07-28 2022-07-28 2 [facility] Housing Homeless 00:00:00 00:00:00 Medical Center Last Year Alcohol intake 2017-03-06 2017-03-06 Current [facility] 00:00:00 00:00:00 non-drinker of Hospital alcohol (finding) History of Social 2017-03-06 2017-03-[address] function 00:00:00 00:00:00 Hospital Sex Assigned At [birth year] MARITZA [facility] 00:00:00 00:00:00 [facility] Smoking Status Start Date Stop Date Source Former Smoker [facility] Tobacco smoking consumption [facility] Never smoked tobacco [facility] th Smokes tobacco daily 2022-07-13 00:00:00 [facility] Medications Ordered Filled Start Stop Current Ordering Indication Dosage Frequency Signature Comments Components Source Medication Medication Date Date Medication? Clinician (SIG) Name Name pantoprazol 2023- No 40mg QD Take [address] [facility] 07-28 tablet (40 [facility] (PROTONIX) 00:00: 23:59 mg total) M edical 40 MG 00 :00 by mouth [place] tablet in the morning. morpHINE (4 2022- No 4mg 4 mg, Slow Univers mg/mL) 07-13 IV Push, ity of injection 4 20:45: 21:02 [place]CE[place] 1 [place] :[place] dose, On Medical Fri Branch 07/13/22 at 1545, STAT cyproheptad Yes cyprohepta Univers ine 4 mg 07-13 dine 4 mg ity of tablet 16:04: tablet [place] [id number] TAKE 1 Medical TABLET BY Branch MOUTH THREE TIMES DAILY cyproheptad Yes cyprohepta Univers ine 4 mg 07-13 dine 4 mg ity of tablet 16:04: tablet 52 TAKE 1 Medical TABLET BY Branch MOUTH THREE TIMES DAILY cyproheptad 0 Yes cyprohepta Univers ine 4 mg 07-13 dine 4 mg ity of tablet 16:04: tablet 52 TAKE 1 Medical TABLET BY Branch MOUTH THREE TIMES DAILY traMADoL 50 0 2022- No tramadol U nivers mg tablet 07-13 50 mg ity of 16:04: 00:00 tablet [place] 52 :00 TAKE 1 Medical TABLET BY Branch MOUTH EVERY 6 HOURS NEEDED FOR PAIN traMADoL 2022- No 50mg 50 mg, Univer s (ULTRAM) 07-13 Oral, ity of tablet 50 15:15: 17:28 ONCE, 1 [place] mg 00 :00 dose, On Medical Fri Branch 07/13/22 at 1015, Routine ketorolac 2022- No 30mg 30 mg, Unive rs (TORADOL) 07-13 Slow IV ity of injection 15:15: 15:15 Push, [place] 30 mg 00 :00 ONCE, 1 Medical dose, On Branch 07/13/22 at 1015, SOPHIA traMADoL 50 0 Yes [id number] 50mg Take 1 Univ ers mg tablet 3-31 tablet by ity o f 00:00: mouth [place] 00 every 6 Medical (six) Branch hours as needed for Pain (scale 7-10). Indication s: acute pain ondansetron Yes [id number] 4mg Take 1 Univers 4 mg 3-31 tablet by ity of disintegrat 00:00: mouth [place] ing tablet 00 every 8 Medica l (eight) Branch hours as needed for Nausea and Vomiting (N/V). traMADoL 50 0 Yes [id number] 50mg Take 1 Univ ers mg tablet 3-31 tablet by ity o f 00:00: mouth [place] 00 every 6 Medical (six) Branch hours as needed for Pain (scale 7-10). Indication s: acute pain ondansetron Yes [id number] 4mg Take 1 Univers 4 mg 3-31 tablet by ity of disintegrat 00:00: mouth [place] ing tablet 00 every 8 Medica l (eight) Branch hours as needed for Nausea and Vomiting (N/V). traMADoL 50 0 Yes [id number] 50mg Take 1 Univ ers mg tablet 3-31 tablet by ity o f 00:00: mouth [place] 00 every 6 Medical (six) Branch hours as needed for Pain (scale 7-10). Indication s: acute pain ondansetron 0 Yes [id number] 4mg Take 1 Univers 4 mg 3-31 tablet by ity of disintegrat 00:00: mouth [place] ing tablet 00 every 8 Medica l (eight) Branch hours as needed for Nausea and Vomiting (N/V). ibuprofen Yes Univers 800 mg 1-31 ity of tablet 00:00: [facility] ibuprofen 0 Yes Univers 800 mg 1-31 ity of tablet 00:00: [address] ibuprofen 0 Yes Univers 800 mg 1-31 ity of tablet 00:00: [address] gabapentin Yes gabapentin U nivers 300 mg 9-23 300 mg ity of capsule 15:59: capsule [address] gabapentin Yes gabapentin U nivers 300 mg 9-23 300 mg ity of capsule 15:59: capsule [address] gabapentin 0 Yes gabapentin U nivers 300 mg 9-23 300 mg ity of capsule 15:59: capsule [address] gabapentin 2021-0 Yes gabapentin U nivers 300 mg 9-23 300 mg ity of capsule 15:59: capsule [address] gabapentin 0 Yes gabapentin U nivers 300 mg 9-23 300 mg ity of capsule 15:59: capsule [address] gabapentin 2021-0 Yes gabapentin U nivers 300 mg 9-23 300 mg ity of capsule 15:59: capsule [address] gabapentin 2021-0 Yes gabapentin U nivers 300 mg 9-23 300 mg ity of capsule 15:59: capsule [address] gabapentin 2021-0 Yes gabapentin U nivers 300 mg 9-23 300 mg ity of capsule 15:59: capsule [address] gabapentin 2021-0 Yes gabapentin U nivers 300 mg 9-23 300 mg ity of capsule 15:59: capsule [address] gabapentin 2021-0 Yes gabapentin U nivers 300 mg 9-23 300 mg ity of capsule 15:59: capsule [address] gabapentin 2022-0 Yes gabapentin U nivers 300 mg 9-23 300 mg ity of capsule 15:59: capsule [address] gabapentin Yes gabapentin U nivers 300 mg 9-23 300 mg ity of capsule 15:59: capsule [address] gabapentin Yes gabapentin U nivers 300 mg 9-23 300 mg ity of capsule 15:59: capsule [address] gabapentin Yes gabapentin U nivers 300 mg 9-23 300 mg ity of capsule 15:59: capsule [address] gabapentin Yes gabapentin U nivers 300 mg 9-23 300 mg ity of capsule 15:59: capsule [address] SERTraline Yes sertraline U nivers 50 mg 9-23 50 mg ity of tablet 15:59: tablet [address] tiZANidine Yes tizanidine U nivers 4 mg tablet 9-23 4 mg ity of 15:59: tablet [address] SERTraline Yes sertraline U nivers 50 mg 9-23 50 mg ity of tablet 15:59: tablet [address] tiZANidine Yes tizanidine U nivers 4 mg tablet 9-23 4 mg ity of 15:59: tablet [address] SERTraline Yes sertraline U nivers 50 mg 9-23 50 mg ity of tablet 15:59: tablet [address] tiZANidine Yes tizanidine U nivers 4 mg tablet 9-23 4 mg ity of 15:59: tablet [address] tiZANidine Yes tizanidine U nivers 4 mg tablet 9-23 4 mg ity of 15:59: tablet [address] SERTraline Yes sertraline U nivers 50 mg 9-23 50 mg ity of tablet 15:59: tablet [address] SERTraline Yes sertraline U nivers 50 mg 9-23 50 mg ity of tablet 15:59: tablet [address] tiZANidine Yes tizanidine U nivers 4 mg tablet 9-23 4 mg ity of 15:59: tablet [address] SERTraline Yes sertraline U nivers 50 mg 9-23 50 mg ity of tablet 15:59: tablet [address] tiZANidine Yes tizanidine U nivers 4 mg tablet 9-23 4 mg ity of 15:59: tablet [address] SERTraline Yes sertraline U nivers 50 mg 9-23 50 mg ity of tablet 15:59: tablet [address] tiZANidine Yes tizanidine U nivers 4 mg tablet 9-23 4 mg ity of 15:59: tablet [address] SERTraline Yes sertraline U nivers 50 mg 9-23 50 mg ity of tablet 15:59: tablet [address] tiZANidine Yes tizanidine U nivers 4 mg tablet 9-23 4 mg ity of 15:59: tablet [address] SERTraline Yes sertraline U nivers 50 mg 9-23 50 mg ity of tablet 15:59: tablet [address] tiZANidine Yes tizanidine U nivers 4 mg tablet 9-23 4 mg ity of 15:59: tablet [address] SERTraline Yes sertraline U nivers 50 mg 9-23 50 mg ity of tablet 15:59: tablet [address] tiZANidine Yes tizanidine U nivers 4 mg tablet 9-23 4 mg ity of 15:59: tablet [address] SERTraline Yes sertraline U nivers 50 mg 9-23 50 mg ity of tablet 15:59: tablet [address] tiZANidine Yes tizanidine U nivers 4 mg tablet 9-23 4 mg ity of 15:59: tablet [address] SERTraline Yes sertraline U nivers 50 mg 9-23 50 mg ity of tablet 15:59: tablet [address] tiZANidine Yes tizanidine U nivers 4 mg tablet 9-23 4 mg ity of 15:59: tablet [address] SERTraline 2022-0 Yes sertraline U nivers 50 mg 9-23 50 mg ity of tablet 15:59: tablet [address] tiZANidine Yes tizanidine U nivers 4 mg tablet 9-23 4 mg ity of 15:59: tablet [address] SERTraline Yes sertraline U nivers 50 mg 9-23 50 mg ity of tablet 15:59: tablet [address] tiZANidine Yes tizanidine U nivers 4 mg tablet 9-23 4 mg ity of 15:59: tablet [address] tiZANidine Yes tizanidine U nivers 4 mg tablet 9-23 4 mg ity of 15:59: tablet [address] SERTraline Yes sertraline U nivers 50 mg 9-23 50 mg ity of tablet 15:59: tablet [address] ketorolac ketorolac No ketorolac [place] 30 mg/mL (1 30 mg/mL (1 9-23 30 mg/mL da mL) mL) 11:35: (1 mL) Medical injection injection 44 injection Group solutionInj solutionInj solutionIn ect 1 mL by ect 1 mL by ject 1 mL intramuscul intramuscul by ar route. ar route. intramuscu lar route. sumatriptan Yes Univer s 100 mg 9-22 ity of tablet 00:00: [facility] sumatriptan Yes Univer s 100 mg 9-22 ity of tablet 00:00: [facility] sumatriptan Yes Univer s 100 mg 9-22 ity of tablet 00:00: [facility] sumatriptan Yes Univer s 100 mg 9-22 ity of tablet 00:00: [facility] sumatriptan Yes Univer s 100 mg 9-22 ity of tablet 00:00: [facility] sumatriptan Yes Univer s 100 mg 9-22 ity of tablet 00:00: [facility] sumatriptan Yes Univer s 100 mg 9-22 ity of tablet 00:00: [facility] sumatriptan 2022-0 Yes Univer s 100 mg 9-22 ity of tablet 00:00: [place] 00 Medical Branch sumatriptan 2021-0 Yes Univer s 100 mg 9-22 ity of tablet 00:00: [place] 00 Medical Branch sumatriptan 2021-0 Yes Univer s 100 mg 9-22 ity of tablet 00:00: [place] 00 [facility] sumatriptan 2-0 Yes Univer s 100 mg 9-22 ity of tablet 00:00: [place] 00 Medical Branch sumatriptan 2021-0 Yes Univer s 100 mg 9-22 ity of tablet 00:00: [place] 00 Medical Branch sumatriptan 2021-0 Yes Univer s 100 mg 9-22 ity of tablet 00:00: [place] 00 Medical Branch sumatriptan 2021-0 Yes Univer s 100 mg 9-22 ity of tablet 00:00: [place] 00 [facility] Branch sumatriptan 2021-0 Yes Univer s 100 mg 9-22 ity of tablet 00:00: [place] 00 Medical Branch predniSONE Yes Angioedema, 20mg QD Take 2 [facility] (DELTASONE) 3-23 subsequent tablets by [email or web address] 10 mg 00:00: encounter mouth tablet 00 daily Prn allergic reactions: urticaria/ angioedema . albuterol Yes Angioedema, 2{puff} Inhale 2 [facility] (VENTOLIN 3-23 subsequent Puffs by [email or web address] HFA,PROVENT 00:00: encounter mouth [place] 00 every 4 HFA,PROAIR hours as HFA) 90 needed for mcg/actuati Wheezing on inhaler or Shortness of Breath. predniSONE Yes Angioedema, 20mg QD Take 2 [facility] (DELTASONE) 3-23 subsequent tablets by [email or web address] 10 mg 00:00: encounter mouth tablet 00 daily Prn allergic reactions: urticaria/ angioedema . albuterol Yes Angioedema, 2{puff} Inhale 2 [facility] (VENTOLIN 3-23 subsequent Puffs by [email or web address] HFA,PROVENT 00:00: encounter mouth [place] 00 every [...] 2 [facility] (VENTOLIN 3-23 subsequent Puffs by [email or web address] HFA,PROVENT 00:00: encounter mouth [place] 00 every [...] 2 [place] (VENTOLIN 3-23 subsequent Puffs by [email or web address] HFA,PROVENT 00:00: encounter mouth [place] 00 every [...] Wheezing on inhaler or Shortness of Breath. tramadol tramadol No tramadol [place] [facility] dicyclomine dicyclomine No 1 QID dicyclomin [place] 20 mg 20 mg e 20 mg da tablet Take tablet Take tablet [facility] 1 tablet 4 1 tablet 4 Take 1 a l times a day times a day tablet 4 Health by oral by oral times a Outrea c route. route. day by h oral Program route. gabapentin gabapentin No gabapentin [place] 300 mg 300 mg 300 mg da capsule capsule capsule [facility] p TAKE 1 TAKE 1 TAKE 1 al CAPSULE BY CAPSULE BY CAPSULE BY Health MOUTH THREE MOUTH THREE MOUTH Outreac TIMES DAILY TIMES DAILY THREE h NEEDED NEEDED TIMES Prog bryn DAILY NEEDED tizanidine tizanidine No tizanidine [place] 2 mg tablet 2 mg tablet 2 mg d a TAKE 1 TAKE 1 tablet [facility] TABLET BY TABLET BY TAKE 1 al MOUTH THREE MOUTH THREE TABLET BY Health TIMES DAILY TIMES DAILY MOUTH Outreac NEEDED NEEDED THREE h TIMES Program DAILY NEEDED tizanidine tizanidine No tizanidine [place] 4 mg tablet 4 mg tablet 4 mg d a TAKE 1 TAKE 1 tablet [facility] TABLET BY TABLET BY TAKE 1 al MOUTH EVERY MOUTH EVERY TABLET BY Health 8 HOURS 8 HOURS MOUTH Ou treac NEEDED NEEDED EVERY 8 h HOURS Program NEEDED tramadol 50 tramadol 50 No tramadol [place] mg tablet mg tablet 50 mg da TAKE 1 TAKE 1 tablet [facility] TABLET BY TABLET BY TAKE 1 al MOUTH EVERY MOUTH EVERY TABLET BY Health 4 HOURS 4 HOURS MOUTH Ou treac NEEDED FOR NEEDED FOR EVERY 4 h PAIN PAIN HOURS Program NEEDED FOR PAIN dicyclomine dicyclomine No 1 QID dicyclomin [place] 20 mg 20 mg e 20 mg da tablet Take tablet Take tablet [facility] 1 tablet 4 1 tablet 4 Take 1 a l times a day times a day tablet 4 Health by oral by oral times a Outrea c route. route. day by h oral Program route. albuterol albuterol No 2puff(s Q4H albuterol [place] [...] 10 days. 10 days. for 10 days. gabapentin gabapentin No gabapentin [facility] 300 mg 300 mg 300 mg da capsule capsule capsule [facility] p TAKE 1 TAKE 1 TAKE 1 al CAPSULE BY CAPSULE BY CAPSULE BY Health MOUTH THREE MOUTH THREE MOUTH [facility] TIMES DAILY TIMES DAILY THREE h NEEDED NEEDED TIMES Prog bryn DAILY NEEDED cyproheptad cyproheptad No cyprohepta [place] ine [...] MOUTH NEEDED NEEDED THREE TIMES DAILY NEEDED tizanidine tizanidine No tizanidine [place] 2 mg tablet 2 mg tablet 2 mg d a TAKE 1 TAKE 1 tablet [facility] TABLET BY TABLET BY TAKE 1 al MOUTH THREE MOUTH THREE TABLET BY Health TIMES DAILY TIMES DAILY MOUTH [facility] NEEDED NEEDED THREE h TIMES Program DAILY NEEDED erythromyci erythromyci No erythromyc [place] [...] HOURS 4 HOURS MOUTH EVERY 4 HOURS benzonatate benzonatate No benzonatat [place] 100 mg 100 mg e 100 mg da capsule capsule capsule Medica l TAKE 1 TAKE 1 TAKE 1 Group CAPSULE BY CAPSULE BY CAPSULE BY MOUTH THREE MOUTH THREE MOUTH TIMES DAILY TIMES DAILY THREE FOR COUGH FOR COUGH TIMES DAILY FOR COUGH ciprofloxac ciprofloxac No ciprofloxa [place] in 500 mg in 500 mg saurav 500 mg da tablet TAKE tablet TAKE tablet Medical 1 TABLET BY 1 TABLET BY TAKE 1 Group MOUTH TWICE MOUTH TWICE TABLET BY DAILY FOR 7 DAILY FOR 7 MOUTH DAYS DAYS TWICE DAILY FOR 7 DAYS cyproheptad cyproheptad No cyprohepta [place] ine 4 [...] ointment (0.5 %) Grou p eye ointment ferrous ferrous No ferrous [facility] gluconate gluconate gluconate da 324 mg (38 324 mg (38 324 mg (38 Medical mg iron) mg iron) mg iron) [facility] up tablet TAKE tablet TAKE tablet 1 TABLET BY 1 TABLET BY TAKE 1 MOUTH EVERY MOUTH EVERY TABLET BY DAY DAY MOUTH EVERY DAY fluticasone fluticasone No fluticason [place] propionate propionate [...] MOUTH NEEDED NEEDED EVERY 6 HOURS NEEDED indomethaci indomethaci No indomethac [place] n 25 mg n 25 mg in 25 mg da capsule capsule capsule [facility]ica [facility] Group ondansetron ondansetron No ondansetro [place] HCl 4 mg HCl 4 mg n HCl 4 mg d a tablet TAKE tablet TAKE tablet Medical 1 TABLET BY 1 TABLET BY TAKE 1 Group MOUTH EVERY MOUTH EVERY TABLET BY DAY DAY MOUTH EVERY DAY sertraline sertraline No sertraline [facility] 50 mg [...] MG IN 24 HOURS tizanidine tizanidine No 1 Q6H tizanidine [facility] 4 mg tablet 4 mg tablet 4 mg d a Take 1 Take 1 tablet Medical tablet tablet Take 1 Group every 6 every 6 tablet hours by hours by every 6 oral route oral route hours by for 10 for 10 oral route days. days. for 10 days. tramadol 50 tramadol 50 No tramadol [facility] mg tablet mg tablet 50 mg da TAKE 1 TAKE 1 tablet Medical TABLET BY TABLET BY TAKE 1 [facility]iana up MOUTH EVERY MOUTH EVERY TABLET BY 4 HOURS 4 HOURS MOUTH NEEDED FOR NEEDED FOR EVERY 4 PAIN PAIN HOURS NEEDED FOR PAIN Ventolin Ventolin No Ventolin [facility] HFA 90 HFA 90 HFA 90 da mcg/actuati mcg/actuati mcg/actuat Medical on aerosol on aerosol ion [facility] up inhaler inhaler aerosol INHALE 2 INHALE 2 inhaler PUFFS BY PUFFS BY INHALE 2 MOUTH EVERY MOUTH EVERY PUFFS BY 4 HOURS 4 HOURS MOUTH EVERY 4 HOURS gabapentin gabapentin No gabapentin [place] 300 mg [...] MOUTH NEEDED NEEDED EVERY 6 HOURS NEEDED sertraline sertraline No sertraline [place] 50 mg 50 mg 50 mg da tablet TAKE tablet TAKE tablet Medical 1 TABLET BY 1 TABLET BY TAKE 1 Group MOUTH EVERY MOUTH EVERY TABLET BY DAY AT DAY AT MOUTH BEDTIME BEDTIME EVERY DAY AT BEDTIME tizanidine tizanidine No 1 Q6H tizanidine [place] [...] 4 mg dine 4 mg da tablet tablet tablet Medical Group gabapentin gabapentin No gabapentin [place] 300 mg [...] MOUTH NEEDED NEEDED EVERY 6 HOURS NEEDED Plenvu 140 Plenvu 140 No Plenvu 140 [place] gram-9 gram-9 gram-9 da gram-5.2 gram-5.2 gram-5.2 Med ical gram powder gram powder gram G roup packs TAKE packs TAKE powder BY MOUTH BY MOUTH packs TAKE DIRECTED 3 DIRECTED 3 BY MOUTH TIMES DAILY TIMES DAILY FOR 1 DAY FOR 1 DAY DIRECTED 3 TIMES DAILY FOR 1 DAY sertraline sertraline No sertraline [place] 50 mg 50 mg 50 mg da tablet TAKE tablet TAKE tablet Medical 1 TABLET BY 1 TABLET BY TAKE 1 Group MOUTH EVERY MOUTH EVERY TABLET BY DAY AT DAY AT MOUTH BEDTIME BEDTIME EVERY DAY AT BEDTIME sumatriptan sumatriptan No sumatripta [place] 100 mg 100 mg n 100 mg da tablet tablet tablet Medical Group tizanidine tizanidine No 1 Q6H tizanidine [facility] 4 mg tablet 4 mg tablet 4 mg d a Take 1 Take 1 tablet Medical tablet tablet Take 1 Group every 6 every 6 tablet hours by hours by every 6 oral route oral route hours by for 10 for 10 oral route days. days. for 10 days. tramadol 50 tramadol 50 No tramadol [facility] mg tablet mg tablet 50 mg da TAKE 1 TAKE 1 tablet Medical TABLET BY TABLET BY TAKE 1 [facility]iana up MOUTH EVERY MOUTH EVERY TABLET BY 6 HOURS 6 HOURS MOUTH NEEDED FOR NEEDED FOR EVERY 6 PAIN PAIN HOURS NEEDED FOR PAIN cyproheptad cyproheptad No cyprohepta [place] ine 4 mg ine 4 mg dine 4 mg da tablet tablet tablet Medical Group gabapentin gabapentin No gabapentin [place] 300 mg [...] MOUTH NEEDED NEEDED EVERY 6 HOURS NEEDED tizanidine tizanidine No tizanidine [facility] 4 mg tablet 4 mg tablet 4 mg d a TAKE 1 TAKE 1 tablet [facility] TABLET BY TABLET BY TAKE 1 al MOUTH EVERY MOUTH EVERY TABLET BY Health 8 HOURS 8 HOURS MOUTH Ou treac NEEDED NEEDED EVERY 8 h HOURS Program NEEDED Plenvu 140 Plenvu 140 No Plenvu 140 [place] gram-9 gram-9 gram-9 da gram-5.2 gram-5.2 gram-5.2 Med ical gram powder gram powder gram G roup packs TAKE packs TAKE powder BY MOUTH BY MOUTH packs TAKE DIRECTED 3 DIRECTED 3 BY MOUTH TIMES DAILY TIMES DAILY FOR 1 DAY FOR 1 DAY DIRECTED 3 TIMES DAILY FOR 1 DAY sertraline sertraline No sertraline [place] 50 mg 50 mg 50 mg da tablet TAKE tablet TAKE tablet Medical 1 TABLET BY 1 TABLET BY TAKE 1 Group MOUTH EVERY MOUTH EVERY TABLET BY DAY AT DAY AT MOUTH BEDTIME BEDTIME EVERY DAY AT BEDTIME sumatriptan sumatriptan No sumatripta [place] 100 mg 100 mg n 100 mg da tablet tablet tablet Medical Group tizanidine tizanidine No 1 Q6H tizanidine [facility] 4 mg tablet 4 mg tablet 4 mg d a Take 1 Take 1 tablet Medical tablet tablet Take 1 Group every 6 every 6 tablet hours by hours by every 6 oral route oral route hours by for 10 for 10 oral route days. days. for 10 days. tramadol 50 tramadol 50 No tramadol [facility] mg tablet mg tablet 50 mg da TAKE 1 TAKE 1 tablet Medical TABLET BY TABLET BY TAKE 1 [facility]iana up MOUTH EVERY MOUTH EVERY TABLET BY 6 HOURS 6 HOURS MOUTH NEEDED FOR NEEDED FOR EVERY 6 PAIN PAIN HOURS NEEDED FOR PAIN cyproheptad cyproheptad No cyprohepta [place] ine 4 mg ine 4 mg dine 4 mg da tablet TAKE tablet TAKE tablet Medical 2TABLET BY 2TABLET BY TAKE [facility]iana up MOUTH THREE MOUTH THREE 2TABLET BY TIMES DAILY TIMES DAILY MOUTH THREE TIMES DAILY gabapentin gabapentin No gabapentin [place] 300 [...] 1 MOUTH EVERY MOUTH EVERY TABLET BY 8 HOURS 8 HOURS MOUTH NEEDED NEEDED EVERY 8 HOURS NEEDED sertraline sertraline No sertraline [facility] 50 mg [...] MG IN 24 HOURS tizanidine tizanidine No 1 Q6H tizanidine [facility] 4 mg tablet 4 mg tablet 4 mg d a Take 1 Take 1 tablet Medical tablet tablet Take 1 Group every 6 every 6 tablet hours by hours by every 6 oral route oral route hours by for 10 for 10 oral route days. days. for 10 days. tramadol 50 tramadol 50 No tramadol [facility] mg tablet mg tablet 50 mg da TAKE 1 TAKE 1 tablet Medical TABLET BY TABLET BY TAKE 1 Tiana up MOUTH EVERY MOUTH EVERY TABLET BY 8 HOURS 8 HOURS MOUTH NEEDED FOR NEEDED FOR EVERY 8 PAIN PAIN HOURS NEEDED FOR PAIN cyproheptad cyproheptad No cyprohepta [place] ine 4 mg ine 4 mg dine 4 mg da tablet TAKE tablet TAKE tablet Medical 2 TABLETS 2 TABLETS TAKE 2 Tiana up BY MOUTH BY MOUTH TABLETS BY THREE TIMES THREE TIMES MOUTH DAILY DAILY THREE TIMES DAILY dicyclomine dicyclomine No dicyclomin [facility] 20 mg 20 mg e 20 mg da tablet tablet tablet Medical Group fluticasone fluticasone No fluticason [facility] propionate propionate e da 50 50 propionate Medical mcg/actuati mcg/actuati 50 G roup on nasal on nasal mcg/actuat spray,suspe spray,suspe ion nasal nsion nsion spray,susp ension gabapentin gabapentin No gabapentin [place] 300 mg [...] 1 MOUTH EVERY MOUTH EVERY TABLET BY 8 HOURS 8 HOURS MOUTH NEEDED NEEDED EVERY 8 HOURS NEEDED sertraline sertraline No sertraline [place] 50 mg 50 mg 50 mg da tablet TAKE tablet TAKE tablet Medical 1 TABLET BY 1 TABLET BY TAKE 1 Group MOUTH EVERY MOUTH EVERY TABLET BY DAY AT DAY AT MOUTH BEDTIME BEDTIME EVERY DAY AT BEDTIME tramadol 50 tramadol 50 No tramadol [facility] mg tablet mg tablet 50 mg da TAKE 1 TAKE 1 tablet [facility] TABLET BY TABLET BY TAKE 1 al MOUTH EVERY MOUTH EVERY TABLET BY Health 4 HOURS 4 HOURS MOUTH Ou treac NEEDED FOR NEEDED FOR EVERY 4 h PAIN PAIN HOURS Program NEEDED FOR PAIN sumatriptan sumatriptan No sumatripta [facility] 100 mg [...] oral route days. days. for 10 days. tramadol 50 tramadol 50 No tramadol [facility] mg tablet mg tablet 50 mg da TAKE 1 TAKE 1 tablet Medical TABLET BY TABLET BY TAKE 1 [facility]iana up MOUTH EVERY MOUTH EVERY TABLET BY DAY DAY MOUTH EVERY DAY Xanax 0.25 Xanax 0.25 No Xanax 0.25 [facility] mg tablet mg tablet mg tablet da Take 1 Take 1 Take 1 Medical tablet 30 tablet 30 tablet 30 Group minuites minuites minuites before before before arrival to arrival to arrival to MRCP, august MRCP, august MRCP, may take 1 take 1 take 1 tablet at tablet at tablet at start of start of start of MRCP if MRCP if MRCP if needed. needed. needed. Accrufer 30 Accrufer 30 No 1capsul BID Accrufer [facility] mg capsule mg capsule e(s) 30 mg da Take 1 Take 1 capsule Medical capsule capsule Take 1 Group twice a day twice a day capsule by oral by oral twice a route for route for day by 90 days. 90 days. oral route for 90 days. cyproheptad cyproheptad No cyprohepta [place] ine 4 mg ine 4 mg dine 4 mg da tablet TAKE tablet TAKE tablet Medical 2 TABLETS 2 TABLETS TAKE 2 Tiana up BY MOUTH BY MOUTH TABLETS BY THREE TIMES THREE TIMES MOUTH DAILY DAILY THREE TIMES DAILY dicyclomine dicyclomine No dicyclomin [facility] 20 mg 20 mg e 20 mg da tablet tablet tablet Medical Group gabapentin gabapentin No gabapentin [place] 300 mg 300 mg 300 mg da capsule capsule capsule Medica l TAKE 1 TAKE 1 TAKE 1 Group CAPSULE BY CAPSULE BY CAPSULE BY MOUTH THREE MOUTH THREE MOUTH TIMES DAILY TIMES DAILY THREE NEEDED NEEDED TIMES DAILY NEEDED sumatriptan sumatriptan No sumatripta [place] 100 mg [...] up MOUTH EVERY MOUTH EVERY TABLET BY 6 HOURS FOR 6 HOURS FOR MOUTH 10 DAYS 10 DAYS EVERY 6 HOURS FOR 10 DAYS tramadol 50 tramadol 50 No tramadol [facility] mg tablet mg tablet 50 mg da TAKE 1 TAKE 1 tablet Medical TABLET BY TABLET BY TAKE 1 [facility]iana up MOUTH 1 TO MOUTH 1 TO TABLET BY 2 TIMES 2 TIMES MOUTH 1 TO DAILY DAILY 2 TIMES NEEDED NEEDED DAILY NEEDED Plenvu 140 Plenvu 140 No 1packet TID Plenvu 140 [place] gram-9 gram-9 (s) gram-9 da gram-5.2 gram-5.2 gram-5.2 [facility]pi [facility] gram powder gram powder gram a l packs Take packs Take powder H ealth 1 packet 3 1 packet 3 packs Take Outre[facility] times a day times a day 1 packet 3 h by oral by oral times a Progra m route for 1 route for 1 day by day. day. oral route for 1 day. Immunizations Ordered Immunization Filled Immunization Date Status [...] COVID-19, mRNA, COVID-19, mRNA, 2020-09-15 Completed [facility]unn LNP-S, PF, 100 LNP-S, PF, 100 00:00:00 [facility] l Group mcg/0.5 mL dose mcg/0.5 mL dose (Moderna) - ML (Moderna) - ML COVID-19, mRNA, COVID-19, mRNA, 2020-09-15 Completed [facility]il luann LNP-S, PF, 100 LNP-S, PF, 100 00:00:00 Medica l Group mcg/0.5 mL dose mcg/0.5 mL dose (Moderna) - ML (Moderna) - ML HPV, quadrivalent - HPV, quadrivalent - 2014-02-05 Completed [place] ML ML 00:00:00 Medical Group influenza, seasonal, influenza, seasonal, 2014-02-05 Completed [place] injectable, injectable, 00:00:00 Medical Grou p preservative free - preservative free - ML ML HPV, quadrivalent - HPV, quadrivalent - 2014-02-05 Completed [place] ML ML 00:00:00 Medical Group influenza, seasonal, influenza, seasonal, 2014-02-05 Completed [place] injectable, injectable, 00:00:00 Medical Grou p preservative free - preservative free - ML ML HPV, quadrivalent - HPV, quadrivalent - 2014-02-05 Completed [place] ML ML 00:00:00 Medical Group influenza, seasonal, influenza, seasonal, 2014-02-05 Completed [place] injectable, injectable, 00:00:00 Medical Grou p preservative free - preservative free - ML ML HPV, quadrivalent - HPV, quadrivalent - 2014-02-05 Completed [place] ML ML 00:00:00 Medical Group influenza, seasonal, influenza, seasonal, 2014-02-05 Completed [place] injectable, injectable, 00:00:00 Medical Grou p preservative free - preservative free - ML ML HPV, quadrivalent - HPV, quadrivalent - 2014-02-05 Completed [place] ML ML 00:00:00 Medical Group influenza, seasonal, influenza, seasonal, 2014-02-05 Completed [place] injectable, injectable, 00:00:00 Medical Grou p preservative free - preservative free - ML ML HPV, quadrivalent - HPV, quadrivalent - 2014-02-05 Completed [place] ML ML 00:00:00 Medical Group influenza, seasonal, influenza, seasonal, 2014-02-05 Completed [place] injectable, injectable, 00:00:00 Medical Grou p preservative free - preservative free - ML ML HPV, quadrivalent - HPV, quadrivalent - 2014-02-05 Completed [place] ML ML 00:00:00 Medical Group influenza, seasonal, influenza, seasonal, 2014-02-05 Completed [place] injectable, injectable, 00:00:00 Medical Grou p preservative free - preservative free - ML ML HPV, quadrivalent - HPV, quadrivalent - 2014-02-05 Completed [place] ML ML 00:00:00 Medical Group influenza, seasonal, influenza, seasonal, 2014-02-05 Completed [place] injectable, injectable, 00:00:00 Medical Grou p preservative free - preservative free - ML ML HPV, quadrivalent - HPV, quadrivalent - 2014-02-05 Completed [place] ML ML 00:00:00 Medical Group influenza, seasonal, influenza, seasonal, 2014-02-05 Completed [place] injectable, injectable, 00:00:00 Medical Grou p preservative [...] meningococcal MCV4P - meningococcal MCV4P 2013-10-21 Completed [place] ML - ML 00:00:00 Medical Group meningococcal MCV4P - meningococcal MCV4P 2013-10-21 Completed [place] ML - ML 00:00:00 Medical Group meningococcal MCV4P - meningococcal MCV4P 2013-10-21 Completed [place] ML - ML 00:00:00 Medical Group meningococcal MCV4P - meningococcal MCV4P 2013-10-21 Completed [place] ML - ML 00:00:00 Medical Group meningococcal MCV4P - meningococcal MCV4P 2013-10-21 Completed [place] ML - ML 00:00:00 Medical Group meningococcal MCV4P - meningococcal MCV4P 2013-10-21 Completed [place] ML - ML 00:00:00 Medical Group meningococcal MCV4P - meningococcal MCV4P 2013-10-21 Completed [place] ML - ML 00:00:00 Medical Group meningococcal MCV4P - meningococcal MCV4P 2013-10-21 Completed [place] ML - ML 00:00:00 Medical Group meningococcal MCV4P - meningococcal MCV4P 2013-10-21 Completed [place] ML - ML 00:00:00 Medical Group MCV4 [...] 00:00:00 influenza, seasonal, influenza, seasonal, 2013-02-25 Completed [place] injectable, injectable, 00:00:00 Medical Grou p preservative free - preservative free - ML ML influenza, seasonal, influenza, seasonal, 2013-02-25 Completed [place] injectable, injectable, 00:00:00 Medical Grou p preservative free - preservative free - ML ML influenza, seasonal, influenza, seasonal, 2013-02-25 Completed [place] injectable, injectable, 00:00:00 Medical Grou p preservative free - preservative free - ML ML influenza, seasonal, influenza, seasonal, 2013-02-25 Completed [place] injectable, injectable, 00:00:00 Medical Grou p preservative free - preservative free - ML ML influenza, seasonal, influenza, seasonal, 2013-02-25 Completed [place] injectable, injectable, 00:00:00 Medical Grou p preservative free - preservative free - ML ML influenza, seasonal, influenza, seasonal, 2013-02-25 Completed [place] injectable, injectable, 00:00:00 Medical Grou p preservative free - preservative free - ML ML influenza, seasonal, influenza, seasonal, 2013-02-25 Completed [place] injectable, injectable, 00:00:00 Medical Grou p preservative free - preservative free - ML ML influenza, seasonal, influenza, seasonal, 2013-02-25 Completed [place] injectable, injectable, 00:00:00 Medical Grou p preservative free - preservative free - ML ML influenza, seasonal, influenza, seasonal, 2013-02-25 Completed [place] injectable, injectable, 00:00:00 Medical Grou p preservative free - preservative free - ML ML Influenza Vaccine 2013-02-25 Completed [email or web address] 00:00:00 Influenza Vaccine 2013-02-25 Completed [email or web address] 00:00:00 Influenza Vaccine 2013-02-25 Completed [facility] 00:00:00 Influenza Vaccine 2013-02-25 Completed [facility] 00:00:00 Influenza Vaccine 2013-02-25 Completed [facility] 00:00:00 Influenza Vaccine 2013-02-25 Completed [facility] 00:00:00 Influenza Vaccine 2013-02-25 Completed [facility] 00:00:00 Influenza Vaccine 2013-02-25 Completed [facility] 00:00:00 Influenza Vaccine 2013-02-25 Completed [facility] 00:00:00 Influenza Vaccine 2013-02-25 Completed [facility] 00:00:00 Influenza Vaccine 2013-02-25 Completed [facility] 00:00:00 Influenza Vaccine 2013-02-25 Completed [facility] 00:00:00 Influenza Vaccine 2013-02-25 Completed [facility] 00:00:00 meningococcal MCV4P - meningococcal MCV4P 2009-11-24 Completed [place] ML - ML 00:00:00 Medical Group varicella - ML varicella - ML 2009-11-24 Completed [facility] 00:00:00 [facility] Group Tdap - ML Tdap - ML 2009-11-24 Completed [place] 00:00:00 Medical Group meningococcal MCV4P - meningococcal MCV4P 2009-11-24 Completed [place] ML - ML 00:00:00 Medical Group varicella - ML varicella - ML 2009-11-24 Completed [facility] 00:00:00 Medical Group Tdap - ML Tdap - ML 2009-11-24 Completed [place] 00:00:00 Medical Group meningococcal MCV4P - meningococcal MCV4P 2009-11-24 Completed [place] ML - ML 00:00:00 Medical Group varicella - ML varicella - ML 2009-11-24 Completed [facility] 00:00:00 Medical Group Tdap - ML Tdap - ML 2009-11-24 Completed [place] 00:00:00 Medical Group meningococcal MCV4P - meningococcal MCV4P 2009-11-24 Completed [place] ML - ML 00:00:00 Medical Group varicella - ML varicella - ML 2009-11-24 Completed [facility] 00:00:00 Medical Group Tdap - ML Tdap - ML 2009-11-24 Completed [place] 00:00:00 Medical Group meningococcal MCV4P - meningococcal MCV4P 2009-11-24 Completed [place] ML - ML 00:00:00 Medical Group varicella - ML varicella - ML 2009-11-24 Completed [facility] 00:00:00 Medical Group Tdap - ML Tdap - ML 2009-11-24 Completed [place] 00:00:00 Medical Group meningococcal MCV4P - meningococcal MCV4P 2009-11-24 Completed [place] ML - ML 00:00:00 Medical Group varicella - ML varicella - ML 2009-11-24 Completed [facility] 00:00:00 Medical Group Tdap - ML Tdap - ML 2009-11-24 Completed [place] 00:00:00 Medical Group meningococcal MCV4P - meningococcal MCV4P 2009-11-24 Completed [place] ML - ML 00:00:00 Medical Group varicella - ML varicella - ML 2009-11-24 Completed [facility] 00:00:00 [facility] Group Tdap - ML Tdap - ML 2009-11-24 Completed [place] 00:00:00 Medical Group meningococcal MCV4P - meningococcal MCV4P 2009-11-24 Completed [place] ML - ML 00:00:00 Medical Group varicella - ML varicella - ML 2009-11-24 Completed [facility] 00:00:00 [facility] Group Tdap - ML Tdap - ML 2009-11-24 Completed [place] 00:00:00 Medical Group meningococcal MCV4P - meningococcal MCV4P 2009-11-24 Completed [place] ML - ML 00:00:00 Medical Group varicella - ML varicella - ML 2009-11-24 Completed [facility] 00:00:00 Medical Group Tdap - ML Tdap - ML 2009-11-24 Completed [place] 00:00:00 Medical Group Tdap Tetanus, 2009-11-24 Completed [facility] diphtheria, acellular 00:00:00 pertussis Vaccine Varicella Vaccine 2009-11-24 Completed [facility] 00:00:00 MCV4 Meningococcal 2009-11-24 Completed [facility] Conjugate (Menactra) 00:00:00 Tdap Tetanus, 2009-11-24 Completed [facility] diphtheria, acellular 00:00:00 pertussis Vaccine Varicella Vaccine 2009-11-24 Completed [facility] 00:00:00 MCV4 Meningococcal 2009-11-24 Completed [facility] Conjugate (Menactra) 00:00:00 Tdap Tetanus, 2009-11-24 Completed [facility] diphtheria, acellular 00:00:00 pertussis Vaccine Varicella Vaccine 2009-11-24 Completed [facility] 00:00:00 MCV4 Meningococcal 2009-11-24 Completed [facility] Conjugate (Menactra) 00:00:00 Tdap Tetanus, 2009-11-24 Completed [facility] diphtheria, acellular 00:00:00 pertussis Vaccine Varicella Vaccine 2009-11-24 Completed [facility] 00:00:00 MCV4 Meningococcal 2009-11-24 [...] Conjugate (Menactra) 00:00:00 Tdap Tetanus, 2009-11-24 Completed [facility] diphtheria, acellular 00:00:00 pertussis Vaccine Varicella Vaccine 2009-11-24 Completed [facility] 00:00:00 MCV4 Meningococcal 2009-11-24 Completed [facility] Conjugate (Menactra) 00:00:00 Tdap Tetanus, 2009-11-24 Completed [facility] diphtheria, acellular 00:00:00 pertussis Vaccine Varicella Vaccine 2009-11-24 Completed [facility] 00:00:00 MCV4 Meningococcal 2009-11-24 Completed [facility] Conjugate (Menactra) 00:00:00 DTaP, unspecified DTaP, unspecified 2001-12-02 Completed [place] formulation - ML formulation - ML 00:00:00 Me dical Group MMR - ML MMR - ML 2001-12-02 Completed [place] 00:00:00 Medical Group IPV - ML IPV - ML 2001-12-02 Completed [place] 00:00:00 Medical Group DTaP, unspecified DTaP, unspecified 2001-12-02 Completed [place] formulation - ML formulation - ML 00:00:00 Me dical Group MMR - ML MMR - ML 2001-12-02 Completed [place] 00:00:00 Medical Group IPV - ML IPV - ML 2001-12-02 Completed [place] 00:00:00 Medical Group DTaP, unspecified DTaP, unspecified 2001-12-02 Completed [place] formulation - ML formulation - ML 00:00:00 Me dical Group MMR - ML MMR - ML 2001-12-02 Completed [place] 00:00:00 Medical Group IPV - ML IPV - ML 2001-12-02 Completed [place] 00:00:00 Medical Group DTaP, unspecified DTaP, unspecified 2001-12-02 Completed [place] formulation - ML formulation - ML 00:00:00 Me dical Group MMR - ML MMR - ML 2001-12-02 Completed [place] 00:00:00 Medical Group IPV - ML IPV - ML 2001-12-02 Completed [place] 00:00:00 Medical Group DTaP, unspecified DTaP, unspecified 2001-12-02 Completed [place] formulation - ML formulation - ML 00:00:00 Me dical Group MMR - ML MMR - ML 2001-12-02 Completed [place] 00:00:00 Medical Group IPV - ML IPV - ML 2001-12-02 Completed [place] 00:00:00 Medical Group DTaP, unspecified DTaP, unspecified 2001-12-02 Completed [place] formulation - ML formulation - ML 00:00:00 Me dical Group MMR - ML MMR - ML 2001-12-02 Completed [place] 00:00:00 Medical Group IPV - ML IPV - ML 2001-12-02 Completed [place] 00:00:00 Medical Group DTaP, unspecified DTaP, unspecified 2001-12-02 Completed [place] formulation - ML formulation - ML 00:00:00 Me dical Group MMR - ML MMR - ML 2001-12-02 Completed [place] 00:00:00 Medical Group IPV - ML IPV - ML 2001-12-02 Completed [place] 00:00:00 Medical Group DTaP, unspecified DTaP, unspecified 2001-12-02 Completed [place] formulation - ML formulation - ML 00:00:00 Me dical Group MMR - ML MMR - ML 2001-12-02 Completed [place] 00:00:00 Medical Group IPV - ML IPV - ML 2001-12-02 Completed [place] 00:00:00 Medical Group DTaP, unspecified DTaP, unspecified 2001-12-02 Completed [place] formulation - ML formulation - ML 00:00:00 Me dical Group MMR - ML MMR - ML 2001-12-02 Completed [place] 00:00:00 Medical Group IPV - ML IPV - ML 2001-12-02 Completed [place] 00:00:00 Medical Group DTaP Diphtheria, 2001-12-02 Completed [facility] Tetanus, Acellular, 00:00:00 Pertussis Hib Haemophilus 2001-12-02 Completed [facility] Influenzae Type B 00:00:00 Poliovirus Ipv 2001-12-02 Completed [facility] 00:00:00 DTaP Diphtheria, 2001-12-02 Completed [facility] Tetanus, Acellular, 00:00:00 Pertussis Hib Haemophilus 2001-12-02 Completed [facility] Influenzae Type B 00:00:00 Poliovirus Ipv 2001-12-02 Completed [facility] 00:00:00 DTaP Diphtheria, 2001-12-02 Completed [facility] [...] ealth Tetanus, Acellular, 00:00:00 Pertussis DTaP Diphtheria, 2001-12-02 Completed [facility] Tetanus, Acellular, 00:00:00 Pertussis Hib Haemophilus 2001-12-02 Completed [facility] Influenzae Type B 00:00:00 Poliovirus Ipv 2001-12-02 Completed [facility] 00:00:00 Hib Haemophilus 2001-12-02 Completed [facility] [...] or Hep B, adolescent or 2000-12-09 Completed [facility] - ML 00:00:00 [facility] Hep B, adolescent or Hep B, adolescent or 2000-12-09 Completed [facility] - ML pediatric - ML 00:00:00 [facility] l Group Hep B, adolescent or Hep B, adolescent or 2000-12-09 Completed [facility] - ML pediatric - ML 00:00:00 Med[facility] l Group Hep B, adolescent or Hep B, adolescent or 2000-12-09 Completed [facility] - ML pediatric - ML 00:00:00 Medica l Group Hep B, adolescent or Hep B, adolescent or 2000-12-09 Completed [facility] - ML pediatric - ML 00:00:00 Medica l Group Hep B, adolescent or Hep B, adolescent or 2000-12-09 Completed [facility] - [facility] pediatric - ML 00:00:00 Medica l Group Hep B, adolescent or Hep B, adolescent or 2000-12-09 Completed [facility] - ML pediatric - ML 00:00:00 Medica l Group Hep B, adolescent or Hep B, adolescent or 2000-12-09 Completed [facility] - ML pediatric - ML 00:00:00 Medica l Group Hep B, adolescent or Hep B, adolescent or 2000-12-09 Completed [facility] - ML pediatric - ML 00:00:00 [...] - ML OPV - ML 1998-12-02 Completed [place] 00:[facility] DTaP-Hib - ML DTaP-Hib - ML 1998-12-02 Completed [facility] OPV - ML OPV - ML 1998-12-02 Completed [place] 00:00:[facility] DTaP-Hib - ML DTaP-Hib - ML 1998-12-02 Completed [facility] OPV - ML OPV - ML 1998-12-02 Completed [place] 00:00:[facility] Group DTaP-Hib - ML DTaP-Hib - ML 1998-12-02 Completed [facility] OPV - ML OPV - ML 1998-12-02 Completed [place] 00:00:[facility] Group DTaP-Hib - ML DTaP-Hib - ML 1998-12-02 Completed [facility] OPV - ML OPV - ML 1998-12-02 Completed [place] 00:00:[facility] DTaP-Hib - ML DTaP-Hib - ML 1998-12-02 Completed [facility] OPV - ML OPV - ML 1998-12-02 Completed [place] 00:00:[facility] Group DTaP-Hib - ML DTaP-Hib - ML 1998-12-02 Completed [facility] OPV - ML OPV - ML 1998-12-02 Completed [place] 00:00:[facility] DTaP-Hib - ML DTaP-Hib - ML 1998-12-02 Completed [facility] OPV - ML OPV - ML 1998-12-02 Completed [place] 00:00:[facility] DTaP-Hib - ML DTaP-Hib - ML 1998-12-02 Completed [facility] OPV - ML OPV - ML 1998-12-02 Completed [place] 00:00:[facility] Poliovirus Ipv 1998-12-02 Completed [facility] 00:00:00 Poliovirus Ipv 1998-12-02 Completed [facility] 00:00:00 Poliovirus Ipv 1998-12-02 Completed [facility] 00:00:00 Poliovirus Ipv 1998-12-02 Completed [facility] 00:00:00 Poliovirus Ipv 1998-12-02 Completed [facility] 00:00:00 Poliovirus Ipv 1998-12-02 Completed [facility] 00:00:00 Poliovirus Ipv 1998-12-02 Completed [facility] 00:00:00 Poliovirus Ipv 1998-12-02 Completed [facility] 00:00:00 Poliovirus Ipv 1998-12-02 Completed [facility] 00:00:00 Poliovirus Ipv 1998-12-02 Completed [facility] 00:00:00 Poliovirus Ipv 1998-12-02 Completed [facility] 00:00:00 Poliovirus Ipv 1998-12-02 Completed [facility] 00:00:00 Poliovirus Ipv 1998-12-02 Completed [facility] 00:00:00 varicella - ML varicella - ML 1998-08-31 Completed [facility] MMR - ML MMR - ML 1998-08-31 Completed [place] 00:00:[facility] varicella - ML varicella - ML 1998-08-31 Completed [facility] MMR - ML MMR - ML 1998-08-31 Completed [place] 00:00:00 [facility] Group varicella - ML varicella - ML 1998-08-31 Completed [facility] MMR - ML MMR - ML 1998-08-31 Completed [place] 00:00:00 [facility] Group varicella - ML varicella - ML 1998-08-31 Completed [facility] MMR - ML MMR - ML 1998-08-31 Completed [place] 00:00:00 [facility] Group varicella - ML varicella - ML 1998-08-31 Completed [facility] 00:[facility] MMR - ML MMR - ML 1998-08-31 Completed [place] 00:00:00 [facility] Group varicella - ML varicella - ML 1998-08-31 Completed [facility] 00:[facility] MMR - ML MMR - ML 1998-08-31 Completed [place] 00:00:00 [facility] Group varicella - ML varicella - ML 1998-08-31 Completed [facility] 00:[facility] MMR - ML MMR - ML 1998-08-31 Completed [place] 00:00:00 [facility] Group varicella - ML varicella - ML 1998-08-31 Completed [facility] MMR - ML MMR - ML 1998-08-31 Completed [place] 00:00:00 [facility] Group varicella - ML varicella - ML 1998-08-31 Completed [facility] 00:[facility] MMR - ML MMR - ML 1998-08-31 Completed [place] 00:00:[facility] Group Hib Haemophilus 1998-08-31 Completed [facility] Influenzae Type B 00:00:00 Varicella Vaccine 1998-08-31 Completed [facility] 00:00:00 Hib Haemophilus 1998-08-31 Completed [facility] Influenzae Type B 00:00:00 Varicella Vaccine 1998-08-31 Completed [facility] 00:00:00 Hib Haemophilus 1998-08-31 Completed [facility] Influenzae Type B 00:00:00 Varicella Vaccine 1998-08-31 Completed [facility] 00:00:00 Hib Haemophilus 1998-08-31 Completed [facility] Influenzae Type B 00:00:00 Varicella Vaccine 1998-08-31 Completed [facility] 00:00:00 Hib Haemophilus 1998-08-31 Completed [facility] Influenzae Type B 00:00:00 Varicella Vaccine 1998-08-31 Completed [facility] 00:00:00 Hib Haemophilus 1998-08-31 Completed [facility] Influenzae Type B 00:00:00 Varicella Vaccine 1998-08-31 Completed [facility] 00:00:00 Hib Haemophilus 1998-08-31 Completed [facility] Influenzae Type B 00:00:00 Varicella Vaccine 1998-08-31 Completed [facility] 00:00:00 Hib Haemophilus 1998-08-31 Completed [facility] Influenzae Type B 00:00:00 Varicella Vaccine 1998-08-31 Completed [facility] 00:00:00 Hib Haemophilus 1998-08-31 Completed [facility] Influenzae Type B 00:00:00 Varicella Vaccine 1998-08-31 Completed [facility] 00:00:00 Hib Haemophilus 1998-08-31 Completed [facility] Influenzae Type B 00:00:00 Hib Haemophilus 1998-08-31 Completed [facility] Influenzae Type B 00:00:00 Varicella Vaccine 1998-08-31 Completed [facility] 00:00:00 Varicella Vaccine 1998-08-31 Completed [facility] 00:00:00 Hib Haemophilus 1998-08-31 Completed [facility] Influenzae Type B 00:00:00 Varicella Vaccine 1998-08-31 Completed [facility] 00:00:00 Hib Haemophilus 1998-08-31 Completed [facility] Influenzae Type B 00:00:00 Varicella Vaccine 1998-08-31 Completed [facility] 00:00:00 DTaP, unspecified DTaP, unspecified 1998-03-04 Completed [place] formulation - ML formulation - ML 00:00:00 Me dical Group DTaP, unspecified DTaP, unspecified 1998-03-04 Completed [place] formulation - ML formulation - ML 00:00:00 Me dical Group DTaP, unspecified DTaP, unspecified 1998-03-04 Completed [place] formulation - ML formulation - ML 00:00:00 Me dical Group DTaP, unspecified DTaP, unspecified 1998-03-04 Completed [place] formulation - ML formulation - ML 00:00:00 Me dical Group DTaP, unspecified DTaP, unspecified 1998-03-04 Completed [place] formulation - ML formulation - ML 00:00:00 Me dical Group DTaP, unspecified DTaP, unspecified 1998-03-04 Completed [place] formulation - ML formulation - ML 00:00:00 Me dical Group DTaP, unspecified DTaP, unspecified 1998-03-04 Completed [place] formulation - ML formulation - ML 00:00:00 Me dical Group DTaP, unspecified DTaP, unspecified 1998-03-04 Completed [place] formulation - ML formulation - ML 00:00:00 Me dical Group DTaP, unspecified DTaP, unspecified 1998-03-04 Completed [place] formulation - ML formulation - ML 00:00:00 [...] Pertussis DTaP, unspecified DTaP, unspecified 1997 Completed [place] formulation - ML formulation - ML 00:00:00 Me dical Group IPV - ML IPV - ML 1997 Completed [place] 00:00:[facility] Group DTaP, unspecified DTaP, unspecified 1997 Completed [place] formulation - ML formulation - ML 00:00:00 Me dical Group IPV - ML IPV - ML 1997 Completed [place] 00:00:00 [facility] Group DTaP, unspecified DTaP, unspecified 1997 Completed [place] formulation - ML formulation - ML 00:00:00 Me dical Group IPV - ML IPV - ML 1997 Completed [place] 00:00:00 [facility] Group DTaP, unspecified DTaP, unspecified 1997 Completed [place] formulation - ML formulation - ML 00:00:00 Me dical Group IPV - ML IPV - ML 1997 Completed [place] 00:00:00 [facility] Group DTaP, unspecified DTaP, unspecified 1997 Completed [place] formulation - ML formulation - ML 00:00:00 Me dical Group IPV - ML IPV - ML 1997 Completed [place] 00:00:00 [facility] Group DTaP, unspecified DTaP, unspecified 1997 Completed [place] formulation - ML formulation - ML 00:00:00 Me dical Group IPV - ML IPV - ML 1997 Completed [place] 00:00:00 [facility] Group DTaP, unspecified DTaP, unspecified 1997 Completed [place] formulation - ML formulation - ML 00:00:00 Me dical Group IPV - ML IPV - ML 1997 Completed [place] 00:00:00 [facility] Group DTaP, unspecified DTaP, unspecified 1997 Completed [place] formulation - ML formulation - ML 00:00:00 Me dical Group IPV - ML IPV - ML 1997 Completed [place] 00:00:00 [facility] Group DTaP, unspecified DTaP, unspecified 1997 Completed [place] formulation - ML formulation - ML 00:00:00 Me dical Group IPV - ML IPV - ML 1997 Completed [place] 00:00:00 [facility] Group DTaP Diphtheria, 1997 Completed [...] Ipv 1997 Completed [facility] Poliovirus Ipv 1997 Completed [facility] 00:[facility]:00 DTaP Diphtheria, 1997 Completed [facility] Tetanus, Acellular, 00:00:00 Pertussis Poliovirus Ipv 1997 Completed [facility] 00:00:00 DTaP Diphtheria, 1997 Completed [facility] Tetanus, Acellular, 00:00:00 Pertussis Poliovirus Ipv 1997 Completed [facility] 00:00:00 DTaP, unspecified DTaP, unspecified 1997 Completed [place] formulation - ML formulation - ML 00:00:00 Me dical Group Hep B, adolescent or Hep B, adolescent or 1997 Completed [place] [facility] - ML pediatric - ML 00:00:00 Medica l Group IPV - ML IPV - ML 1997 Completed [place] 00:00:00 [facility] Group DTaP, unspecified DTaP, unspecified 1997 Completed [place] formulation - ML formulation - ML 00:00:00 Me dical Group Hep B, adolescent or Hep B, adolescent or 1997 Completed [place] [facility] - ML pediatric - ML 00:00:00 Medica l Group IPV - ML IPV - ML 1997 Completed [place] 00:00:00 [facility] Group DTaP, unspecified DTaP, unspecified 1997 Completed [place] formulation - ML formulation - ML 00:00:00 Me dical Group Hep B, adolescent or Hep B, adolescent or 1997 Completed [place] [facility] - ML pediatric - ML 00:00:00 Medica l Group IPV - ML IPV - ML 1997 Completed [place] 00:00:00 [facility] Group DTaP, unspecified DTaP, unspecified 1997 Completed [place] formulation - ML formulation - ML 00:00:00 Me dical Group Hep B, adolescent or Hep B, adolescent or 1997 Completed [place] [facility] - ML pediatric - ML 00:00:00 Medica l Group IPV - ML IPV - ML 1997 Completed [place] 00:00:00 [facility] Group DTaP, unspecified DTaP, unspecified 1997 Completed [place] formulation - ML formulation - ML 00:00:00 Me dical Group Hep B, adolescent or Hep B, adolescent or 1997 Completed [place] [facility] - ML pediatric - ML 00:00:00 Medica l Group IPV - ML IPV - ML 1997 Completed [place] 00:00:00 [facility] Group DTaP, unspecified DTaP, unspecified 1997 Completed [place] formulation - ML formulation - ML 00:00:00 Me dical Group Hep B, adolescent or Hep B, adolescent or 1997 Completed [place] [facility] - ML pediatric - ML 00:00:00 Medica l Group IPV - ML IPV - ML 1997 Completed [place] 00:00:00 [facility] Group DTaP, unspecified DTaP, unspecified 1997 Completed [place] formulation - ML formulation - ML 00:00:00 Me dical Group Hep B, adolescent or Hep B, adolescent or 1997 Completed [place] [facility] - ML pediatric - ML 00:00:00 Medica l Group IPV - ML IPV - ML 1997 Completed [place] 00:00:00 [facility] Group DTaP, unspecified DTaP, unspecified 1997 Completed [place] formulation - ML formulation - ML 00:00:00 Me dical Group Hep B, adolescent or Hep B, adolescent or 1997 Completed [place] [facility] - ML pediatric - ML 00:00:00 Medica l Group IPV - ML IPV - ML 1997 Completed [place] 00:00:00 [facility] Group DTaP, unspecified DTaP, unspecified 1997 Completed [place] formulation - ML formulation - ML 00:00:00 Me dical Group Hep B, adolescent or Hep B, adolescent or 1997 Completed [place] [facility] - ML pediatric - ML 00:00:00 Medica l Group IPV - ML IPV - ML 1997 Completed [place] 00:00:00 [facility] Group DTaP Diphtheria, 1997 Completed [facility] Tetanus, Acellular, 00:00:00 Pertussis Poliovirus Ipv 1997 Completed [facility] 00:00:00 Hepatitis B Vaccine 1997 Completed [facility] 00:00:00 DTaP Diphtheria, 1997 Completed [facility] Tetanus, Acellular, 00:00:00 Pertussis Poliovirus Ipv 1997 Completed [facility] 00:00:00 Hepatitis B Vaccine 1997 Completed [facility] 00:00:00 DTaP Diphtheria, 1997 Completed [facility] Tetanus, Acellular, 00:00:00 Pertussis Poliovirus Ipv 1997 Completed [facility] 00[facility]00:00 Hepatitis B Vaccine 1997 Completed [facility] 00:00:00 DTaP Diphtheria, 1997 Completed [facility] Tetanus, Acellular, 00:00:00 Pertussis Poliovirus Ipv 1997 Completed [facility] 00:00:00 Hepatitis B Vaccine 1997 Completed [facility] 00:00:00 DTaP Diphtheria, 1997 Completed [facility] Tetanus, Acellular, 00:00:00 Pertussis Poliovirus Ipv 1997 Completed [facility] 00[facility]00:00 Hepatitis B Vaccine 1997 Completed [facility] 00:00:00 DTaP Diphtheria, 1997 Completed [facility] Tetanus, Acellular, 00:00:00 Pertussis Poliovirus Ipv 1997 Completed [facility] 00[facility]00:00 Hepatitis B Vaccine 1997 Completed [facility] 00:00:00 DTaP Diphtheria, 1997 Completed [facility] Tetanus, Acellular, 00:00:00 Pertussis Poliovirus Ipv 1997 Completed [facility] 00:00:00 Hepatitis B Vaccine 1997 Completed [facility] 00:00:00 DTaP Diphtheria, 1997 Completed [facility] Tetanus, Acellular, 00:00:00 Pertussis DTaP Diphtheria, 1997 Completed [facility] Tetanus, Acellular, 00:00:00 Pertussis Poliovirus Ipv 1997 Completed [facility] 00:00:00 Hepatitis B Vaccine 1997 Completed [facility] 00:00:00 DTaP Diphtheria, 1997 Completed [facility] Tetanus, Acellular, 00:00:00 Pertussis Poliovirus Ipv 1997 Completed [facility] 00:00:00 Hepatitis B Vaccine 1997 Completed [facility] 00:00:00 DTaP Diphtheria, 1997 Completed [facility] Tetanus, Acellular, 00:00:00 Pertussis Poliovirus Ipv 1997 Completed [facility] 00:[facility] Hepatitis B Vaccine 1997 Completed [employer] [facility] [email or web address] 00:00:00 Poliovirus Ipv 1997 Completed [facility] 00:00:00 Hepatitis B Vaccine 1997 Completed [employer] [facility] [email or web address] 00:00:00 DTaP Diphtheria, 1997 Completed [facility] Tetanus, Acellular, 00:00:00 Pertussis Poliovirus Ipv 1997 Completed [facility] 00:00:00 Hepatitis B Vaccine 1997 Completed [employer] [facility] [email or web address] 00:00:00 DTaP Diphtheria, 1997 Completed [facility] Tetanus, Acellular, 00:00:00 Pertussis Poliovirus Ipv 1997 Completed [facility] 00:00:00 Hepatitis B Vaccine 1997 Completed [employer] [facility] [email or web address] 00:00:00 Hep B, adolescent or Hep B, adolescent or 1997 Completed [place] [facility] - ML pediatric - ML 00:00:00 Medica l Group Hep B, adolescent or Hep B, adolescent or 1997 Completed [place] [facility] - ML pediatric - ML 00:00:00 Medica l Group Hep B, adolescent or Hep B, adolescent or 1997 Completed [place] [facility] - ML pediatric - ML 00:00:00 Medica l Group Hep B, adolescent or Hep B, adolescent or 1997 Completed [place] [facility] - ML pediatric - ML 00:00:00 Medica l Group Hep B, adolescent or Hep B, adolescent or 1997 Completed [place] [facility] - ML pediatric - ML 00:00:00 Medica l Group Hep B, adolescent or Hep B, adolescent or 1997 Completed [place] [facility] - ML pediatric - ML 00:00:00 Medica l Group Hep B, adolescent or Hep B, adolescent or 1997 Completed [place] [facility] - ML pediatric - ML 00:00:00 Medica l Group Hep B, adolescent or Hep B, adolescent or 1997 Completed [place] [facility] - ML pediatric - ML 00:00:00 Medica l Group Hep B, adolescent or Hep B, adolescent or 1997 Completed [place] [facility] - ML pediatric - ML 00:00:00 Medica l Group Hepatitis B Vaccine 1997 Completed [facility] 00:00:00 Hepatitis B Vaccine 1997 Completed [facility] 00:00:00 Hepatitis B Vaccine 1997 Com[facility] 00:00:00 Hepatitis B Vaccine 1997 Completed [facility] 00:00:00 Hepatitis B Vaccine 1997 Completed [facility] 00:00:00 Hepatitis B Vaccine 1997 Completed [facility] 00:00:00 Hepatitis B Vaccine 1997 Completed [facility] 00[facility]00:00 Hepatitis B Vaccine 1997 Completed [facility] 00:00:00 Hepatitis B Vaccine 1997 Completed [facility] 00:00:00 Hepatitis B Vaccine 1997 Completed [facility] 00:00:00 Hepatitis B Vaccine 1997 Completed [facility] 00:00:00 Hepatitis B Vaccine 1997 Completed [facility] 00:00:00 Hepatitis B Vaccine 1997 Completed [facility] 00:00:00 Hep B, adolescent or Hep B, adolescent or 1997 Completed [place] [facility] - ML pediatric - ML 00:00:00 Medica l Group Hep B, adolescent or Hep B, adolescent or 1997 Completed [place] [facility] - ML pediatric - ML 00:00:00 Medica l Group Hep B, adolescent or Hep B, adolescent or 1997 Completed [place] [facility] - ML pediatric - ML 00:00:00 Medica l Group Hep B, adolescent or Hep B, adolescent or 1997 Completed [place] [facility] - ML pediatric - ML 00:00:00 Medica l Group Hep B, adolescent or Hep B, adolescent or 1997 Completed [place] [facility] - ML pediatric - ML 00:00:00 Medica l Group Hep B, adolescent or Hep B, adolescent or 1997 Completed [place] [facility] - ML pediatric - ML 00:00:00 Medica l Group Hep B, adolescent or Hep B, adolescent or 1997 Completed [place] [facility] - ML pediatric - ML 00:00:00 Medica l Group Hep B, adolescent or Hep B, adolescent or 1997 Completed [place] [facility] - ML pediatric - ML 00:00:00 Medica l Group Hep B, adolescent or Hep B, adolescent or 1997 Completed [place] [facility] - ML pediatric - ML 00:00:00 Medica l Group Vital Signs Vital Name Observation Time Observation Value Comments Source BP Diastolic 2022-10-08 00:00:00 79 mm[Hg] [facility] Height 2022-10-08 00:00:00 60 [in_i] [facility] BMI (Body Mass 2022-10-08 00:00:00 17.2 kg/m2 [facility] BP Systolic 2022-10-08 00:00:00 114 mm[Hg] [facility] Body Weight 2022-10-08 00:00:00 1408 [oz_av] [facility] Height 2022-08-27 00:00:00 60 [in_i] [facility] BMI (Body Mass 2022-08-27 00:00:00 16.6 kg/m2 [facility] Body Weight 2022-08-27 00:00:00 1360 [oz_av] [facility] Height 2022-08-09 00:00:00 60 [in_i] [facility] BP Diastolic 2022-08-09 00:00:00 82 mm[Hg] [facility] BMI (Body Mass 2022-08-09 00:00:00 16[facility]6 [facility] BP Systolic 2022-08-09 00:00:00 170 mm[Hg] [facility] Body Weight 2022-08-09 00:00:00 85 [lb_av] [facility] Height 2022-07-30 00:00:00 60 [in_i] [facility] (Body Mass 2022-07-30 00:00:00 16.4 kg/[facility]2 [facility] Body Weight 2022-07-30 00:00:00 1344 [oz_av] [facility] HEIGHT 2022-07-27 22:03:00 152.4 cm WEIGHT 2022-07-27 22:03:00 39.009 kg HEIGHT 2022-07-27 22:03:00 152.4 cm WEIGHT 2022-07-27 22:03:00 39.009 kg HEIGHT 2022-07-27 22:03:00 152.4 cm WEIGHT 2022-07-27 22:03:00 39.009 kg Systolic blood 2022-07-13 21:02:00 111 mm[Hg] [facility] Diastolic blood 2022-07-13 21:02:00 74 mm[Hg] [facility] Heart rate 2022-07-13 21:02:00 68 /min [facility] Respiratory rate 2022-07-13 21:02:00 19 /min [facility] Oxygen saturation in 2022-07-13 21:02:00 100 /min [facility] Arterial blood by [facility] Pulse oximetry Branch Body temperature 2022-07-13 13:24:00 [facility]22 [facility] 2022-07-13 13:24:00 152.4 cm [facility] Body weight 2022-07-13 13:24:00 38.102 kg [facility] BMI 2022-07-13 13:24:00 16.41 kg/m2 [facility] BP Diastolic 2022-07-06 00:00:00 76 mm[Hg] [facility] Height 2022-07-06 00:00:00 60 [in_i] [facility] BMI (Body Mass 2022-07-06 00:00:00 17.5 [facility]2 [facility] BP Systolic 2022-07-06 00:00:00 123 mm[Hg] [facility] Body Weight 2022-07-06 00:00:00 89.5 [lb_av] [facility] Height 2022-07-05 00:00:00 60 [in_i] [facility] BP Diastolic 2022-06-25 00:00:00 78 mm[Hg] [facility] Height 2022-06-25 00:00:00 60 [in_i] [facility] BMI (Body Mass 2022-06-25 00:00:00 17.5 kg/m2 [facility] BP Systolic 2022-06-25 00:00:00 121 mm[Hg] [facility] Body Weight 2022-06-25 00:00:00 89.5 [lb_av] [facility] BP Diastolic 2022-06-07 00:00:00 73 mm[Hg] [facility] Height 2022-06-07 00:00:00 60 [in_i] [facility] BMI (Body Mass 2022-06-07 00:00:00 17 [facility]/m2 [facility] BP Systolic 2022-06-07 00:00:00 109 mm[Hg] [facility] Body Weight 2022-06-07 00:00:00 87 [lb_av] [facility] BP Diastolic 2022-06-04 00:00:00 84 mm[Hg] [facility] Height 2022-06-04 00:00:00 60 [in_i] [facility] BMI (Body Mass 2022-06-04 00:00:00 17.5 kg/m2 [facility] Group BP Systolic 2022-06-04 00:00:00 119 mm[Hg] [facility] Body Weight 2022-06-04 00:00:00 1432 [oz_av] [facility] BP Diastolic 2022-05-18 00:00:00 65 mm[Hg] [facility] Height 2022-05-18 00:00:00 60 [in_i] [facility] BMI (Body Mass 2022-05-18 00:00:00 17.4 kg/m2 [facility] BP Systolic 2022-05-18 00:00:00 95 mm[Hg] [facility] Body Weight 2022-05-18 00:00:00 1429 [oz_av] [facility] Height 2022-05-15 00:00:00 60 [in_i] [facility] BMI (Body Mass 2022-05-15 00:00:00 17.4 kg/m2 [facility] Body Weight 2022-05-15 00:00:00 1429 [oz_av] [facility] BP Diastolic 2022-02-20 00:00:00 62 mm[Hg] [facility] Height 2022-02-20 00:00:00 60 [in_i] [facility] BMI (Body Mass 2022-02-20 00:00:00 18.6 kg/m2 [facility] [facility] BP Systolic 2022-02-20 00:00:00 101 mm[Hg] [facility] Body Weight 2022-02-20 00:00:00 1520 [oz_av] [facility] BP Diastolic 2022-01-17 00:00:00 73 mm[Hg] [facility] Height 2022-01-17 00:00:00 60 [in_i] [facility] BMI (Body Mass 2022-01-17 00:00:00 17.6 [facility] BP Systolic 2022-01-17 00:00:00 114 mm[Hg] [facility] Body Weight 2022-01-17 00:00:00 1440 [oz_av] [facility] Systolic blood 2022-01-05 21:03:00 123 mm[Hg] Univer sity of pressure [facility] Diastolic blood 2022-01-05 21:03:00 84 mm[Hg] Unive rsity of pressure [facility] Heart rate 2022-01-05 21:03:00 76 /min [facility] Body height 2022-01-05 21:03:00 152.4 cm [facility] Body weight 2022-01-05 21:03:00 40.824 kg [facility] BMI 2022-01-05 21:03:00 17.58 kg/m2 [facility] Oxygen saturation in 2022-01-05 21:03:00 100 /min [facility] Arterial blood by [facility] Pulse oximetry Branch BP Diastolic 2022-01-04 00:00:00 71 mm[Hg] [facility] Height 2022-01-04 00:00:00 60 [in_i] [facility] BMI (Body Mass 2022-01-04 00:00:00 18.4 kg/m2 [facility] BP Systolic 2022-01-04 00:00:00 117 mm[Hg] [facility] Body Weight 2022-01-04 00:00:00 1504 [oz_av] [facility] BP Diastolic 2021-10-23 00:00:00 74 mm[Hg] [facility] Height 2021-10-23 00:00:00 60 [in_i] [facility] BMI (Body Mass 2021-10-23 00:00:00 17.4 kg/m2 [facility] BP Systolic 2021-10-23 00:00:00 102 mm[Hg] [facility] Body Weight 2021-10-23 00:00:00 1428.8 [[facility]_av] [facility] Diastolic 2021-10-05 00:00:00 71 mm[Hg] [facility] Height 2021-10-05 00:00:00 60 [in_i] [facility] BMI (Body Mass 2021-10-05 00:00:00 16.9 kg/m2 [facility] BP Systolic 2021-10-05 00:00:00 103 mm[Hg] [facility] Body Weight 2021-10-05 00:00:00 1382.4 [oz_av] [facility] BP Diastolic 2021-09-14 00:00:00 79 mm[Hg] [facility] Height 2021-09-14 00:00:00 60 [in_i] [facility] BMI (Body Mass 2021-09-14 00:00:00 16.2 kg/m2 [facility] BP Systolic 2021-09-14 00:00:00 112 mm[Hg] [facility] Body Weight 2021-09-14 00:00:00 1324.8 [oz_av] [facility] BP Diastolic 2021-09-05 00:00:00 76 mm[Hg] [facility] Height 2021-09-05 00:00:00 60 [in_i] [facility] BMI (Body Mass 2021-09-05 00:00:00 17.4 kg/m2 [facility] BP Systolic 2021-09-05 00:00:00 114 mm[Hg] [facility] Body Weight 2021-09-05 00:00:00 89.1 [lb_av] [facility] BP Diastolic 2021-07-27 00:00:00 78 mm[Hg] [facility] Height 2021-07-27 00:00:00 60 [in_i] [facility] BMI (Body Mass 2021-07-27 00:00:00 17.7 kg/m2 [facility] BP Systolic 2021-07-27 00:00:00 114 mm[Hg] [facility] Body Weight 2021-07-27 00:00:00 1448 [oz_av] [facility] BP Diastolic 2021-07-25 00:00:00 82 mm[Hg] [facility] Height 2021-07-25 00:00:00 60 [in_i] [facility] BMI (Body Mass 2021-07-25 00:00:00 17.9 kg/m2 [facility] BP Systolic 2021-07-25 00:00:00 116 mm[Hg] [facility] Body Weight 2021-07-25 00:00:00 91.5 [lb_av] [facility] BP Diastolic 2021-07-24 00:00:00 76 mm[Hg] [facility] Height 2021-07-24 00:00:00 60 [in_i] [facility] BMI (Body Mass 2021-07-24 00:00:00 17.8 kg/m2 [facility] BP Systolic 2021-07-24 00:00:00 112 mm[Hg] [facility] Body Weight 2021-07-24 00:00:00 1457.6 [oz_av] [facility] BP Diastolic 2021-07-12 00:00:00 76 mm[Hg] [facility] Height 2021-07-12 00:00:00 60 [in_i] [facility] BMI (Body Mass 2021-07-12 00:00:00 19.2 kg/m2 [facility] BP Systolic 2021-07-12 00:00:00 110 mm[Hg] [facility] Body Weight 2021-07-12 00:00:00 1576 [oz_av] [facility] BP Diastolic 2021-06-21 00:00:00 80 mm[Hg] [facility] Height 2021-06-21 00:00:00 60 [in_i] [facility] BMI (Body Mass 2021-06-21 00:00:00 18.4 kg/m2 [facility] BP Systolic 2021-06-21 00:00:00 108 mm[Hg] [facility] Body Weight 2021-06-21 00:00:00 1504 [oz_av] [facility] BP Diastolic 2021-06-02 00:00:00 73 mm[Hg] [facility] Height 2021-06-02 00:00:00 60 [in_i] [facility] BMI (Body Mass 2021-06-02 00:00:00 20.3 kg/m2 [facility] BP Systolic 2021-06-02 00:00:00 122 mm[Hg] [facility] Body Weight 2021-06-02 00:00:00 1664 [oz_av] [facility] BP Diastolic 2021-05-22 00:00:00 73 mm[Hg] [facility] Height 2021-05-22 00:00:00 60 [in_i] [facility] BMI (Body Mass 2021-05-22 00:00:00 19.5 kg/m2 [facility] BP Systolic 2021-05-22 00:00:00 112 mm[Hg] [facility] Body Weight 2021-05-22 00:00:00 1598.4 [oz_av] [facility] BP Diastolic 2021-05-09 00:00:00 75 mm[Hg] [facility] Height 2021-05-09 00:00:00 60 [in_i] [facility] BMI (Body Mass 2021-05-09 00:00:00 20 kg/m2 [facility] BP Systolic 2021-05-09 00:00:00 122 mm[Hg] [facility] Body Weight 2021-05-09 00:00:00 1640 [oz_av] [facility] BP Diastolic 2021-03-23 00:00:00 69 mm[Hg] [facility] Height 2021-03-23 00:00:00 60 [in_i] [facility] BMI (Body Mass 2021-03-23 00:00:00 19.9 kg/m2 [facility] BP Systolic 2021-03-23 00:00:00 103 mm[Hg] [facility] Body Weight 2021-03-23 00:00:00 1627.2 [oz_av] [facility] BP Diastolic 2019-10-30 00:00:00 73 mm[Hg] [facility] Height 2019-10-30 00:00:00 61 [in_i] [facility] BMI (Body Mass 2019-10-30 00:00:00 17.4 kg/m2 [facility] BP Systolic 2019-10-30 00:00:00 105 mm[Hg] [facility] Body Weight 2019-10-30 00:00:00 91.9 [lb_av] [facility] BP Diastolic 2019-07-01 00:00:00 82 mm[Hg] [facility] Height 2019-07-01 00:00:00 61 [in_i] [facility] BMI (Body Mass 2019-07-01 00:00:00 17 kg/m2 [facility] BP Systolic 2019-07-01 00:00:00 119 mm[Hg] [facility] Body Weight 2019-07-01 00:00:00 90 [lb_av] [facility] BP Diastolic 2019-06-10 00:00:00 73 mm[Hg] [facility] Height 2019-06-10 00:00:00 61 [in_i] [facility] BMI (Body Mass 2019-06-10 00:00:00 18.9 [facility] 2019-06-10 00:00:00 111 mm[Hg] [facility] Body Weight 2019-06-10 00:00:00 100 [lb_av] [facility] BP Diastolic 2019-05-20 00:00:00 48 mm[Hg] [facility] Height 2019-05-20 00:00:00 61 [in_i] [facility] BMI (Body Mass 2019-05-20 00:00:00 18.9 kg/m2 [facility] BP Systolic 2019-05-20 00:00:00 117 mm[Hg] [facility] Body Weight 2019-05-20 00:00:00 100.1 [lb_av] [facility] BP Diastolic 2019-04-28 00:00:00 73 mm[Hg] [facility] Height 2019-04-28 00:00:00 61 [in_i] [facility] BMI (Body Mass 2019-04-28 00:00:00 19.9 kg/m2 [facility] BP Systolic 2019-04-28 00:00:00 140 mm[Hg] [facility] Body Weight 2019-04-28 00:00:00 105.4 [lb_av] [facility] BP Diastolic 2019-04-24 00:00:00 57 mm[Hg] [facility] Height 2019-04-24 00:00:00 61 [in_i] [facility] BMI (Body Mass 2019-04-24 00:00:00 20 kg/m2 [facility] BP Systolic 2019-04-24 00:00:00 120 mm[Hg] [facility] Body Weight 2019-04-24 00:00:00 105.7 [lb_av] [facility] BP Diastolic 2019-04-23 00:00:00 70 mm[Hg] [facility] Height 2019-04-23 00:00:00 61 [in_i] [facility] BMI (Body Mass 2019-04-23 00:00:00 20.1 kg/m2 [facility] BP Systolic 2019-04-23 00:00:00 110 mm[Hg] [facility] BP Diastolic 2019-04-16 00:00:00 66 mm[Hg] [facility] Height 2019-04-16 00:00:00 61 [in_i] [facility] BMI (Body Mass 2019-04-16 00:00:00 19.8 kg/m2 [facility] Systolic 2019-04-16 00:00:00 102 mm[Hg] [facility] Body Weight 2019-04-16 00:00:00 104.6 [lb_av] [facility] BP Diastolic 2019-04-02 00:00:00 70 mm[Hg] [facility] Height 2019-04-02 00:00:00 61 [in_i] [facility] BMI (Body Mass 2019-04-02 00:00:00 19.9 kg/m2 [facility] BP Systolic 2019-04-02 00:00:00 122 mm[Hg] [facility] Body Weight 2019-04-02 00:00:00 105.5 [lb_av] [facility] BP Diastolic 2019-03-30 00:00:00 74 mm[Hg] [facility] Height 2019-03-30 00:00:00 61 [in_i] [facility] BMI (Body Mass 2019-03-30 00:00:00 19.8 kg/m2 [facility] BP Systolic 2019-03-30 00:00:00 118 mm[Hg] [facility] Body Weight 2019-03-30 00:00:00 105 [lb_av] [facility] BP Diastolic 2019-03-27 00:00:00 76 mm[Hg] [facility] Height 2019-03-27 00:00:00 61 [in_i] [facility] BMI (Body Mass 2019-03-27 00:00:00 19.9 kg/m2 [facility] Group BP Systolic 2019-03-27 00:00:00 121 mm[Hg] [facility] Body Weight 2019-03-27 00:00:00 105.3 [lb_av] [facility] BP Diastolic 2019-03-09 00:00:00 72 mm[Hg] [facility] Height 2019-03-09 00:00:00 61 [in_i] [facility] BMI (Body Mass 2019-03-09 00:00:00 19.6 kg/m2 [facility] Group BP Systolic 2019-03-09 00:00:00 116 mm[Hg] [facility] Body Weight 2019-03-09 00:00:00 103.6 [lb_av] [facility] Height 2019-03-04 00:00:00 61 [in_i] [facility] Systolic blood 2022-07-28 16:29:00 100 mm[Hg] [facility] Diastolic blood 2022-07-28 16:29:00 64 mm[Hg] [facility] Heart rate 2022-07-28 16:29:00 90 /min [facility] Body temperature 2022-07-28 16:29:00 36.44 Yesenia [facility] Respiratory rate 2022-07-28 16:29:00 18 /min [facility] Oxygen saturation in 2022-07-28 16:29:00 100 /min [facility] Arterial blood by Medical Ce nter Pulse oximetry Body height 2022-07-27 22:03:00 152.4 cm [facility] Body weight 2022-07-27 22:03:00 39.009 kg [facility] BMI 2022-07-27 22:03:00 16.80 kg/m2 [facility] Procedures Procedure Date / Time Performing Source Performed Clinician MR, cholangiopancreatogram, w/ 2022-08-09 M [facility] Medical contrast 00:00:00 Group PHYSICIAN ORDERS 2022-08-01 [facility] 05:01:00 Unassigned, No [facility] MR ABDOMEN WITHOUT IV CONTRAST 2022-07-28 [facility] HEPATIC FUNCTION PANEL 2022-07-[address] [facility] 04:19:00 [facility] BASIC METABOLIC PANEL 2022-07-[address] [facility] 04:19:00 [facility] CBC W/PLT COUNT & AUTO 2022-07-[address] [facility] DIFFERENTIAL 04:19:00 [facility] CBC W/PLT COUNT & AUTO 2022-07-[address] [facility] DIFFERENTIAL 04:19:00 [facility] POCT TEST 2022-07-13 Brady Brantley [place] o f 17:54:00 [facility] LIPASE 2022-07-13 Brady Brantley [place] of 17:51:00 [facility] COMP. METABOLIC PANEL (25851) 2022-07-13 Brady Brantley Un iversity of 17:51:00 [facility] CBC WITH DIFF 2022-07-13 Brady Brantley [place] of 17:51:00 [facility] URINALYSIS 2022-07-13 Brady Brantley [place] of 14:21:00 [facility] NOTICE OF PRIVACY PRACTICES 2022-07-13 Doctor [facility] 13:06:30 Unassigned, No [facility] CONSENT/REFUSAL FOR DIAGNOSIS AND 2022-07-13 Doctor [facility] TREATMENT 13:05:28 Unassigned, No [facility] Cholecystectomy 2022-06-29 [place] 00:00:00 [facility] Egd 2022-06-25 [place] [facility] 00:[facility]:00 Group Colonoscopy 2022-06-25 [place] [facility] 00:00:00 Group Esophagogastroduodenoscopy 2022-06-25 [facility] [place] 00:00:00 [facility] US, abdomen, complete 2022-06-07 [place] 00:00:00 [facility] EXTERNAL PROVIDER RECORDS 2022-05-03 Doctor Nhung sity of 06:01:00 Unassigned, No [facility] Removal of Tonsils 2021-08-14 [place] [facility] 00:00:00 Group XR, toe(s), 2 or more view 2021-05-22 [facility] 00:00:00 Group US(FBP)W/0 NON STRESS TEST 2019-04-28 [facility] 00:00:00 Group US(FBP)W/0 NON STRESS TEST 2019-04-23 [facility] 00:00:00 Group US, obstetric, limited 2019-04-16 [place] [facility] 00:00:00 Group US(FBP)W/0 NON STRESS TEST 2019-04-16 [facility] 00:00:00 Group US(FBP)W/0 NON STRESS TEST 2019-04-02 [facility] 00:00:00 Group non-stress test 2019-04-02 [place] [facility] 00:00:00 Group US(FBP)W/0 NON STRESS TEST 2019-03-30 [facility] 00:00:00 Group non-stress test 2019-03-30 [place] [facility] 00:00:00 Group US, obstetric, limited 2019-03-27 [place] [facility] 00:00:00 Group US(FBP)W/0 NON STRESS TEST 2019-03-27 [facility] Medical 00:00:00 Group ULTRASOUND, UTERUS REAL 2019-03-04 [facility] TIME WITH IMAGE DOC, AND 00:00:00 G roup MATERNAL EVAL PLUS DETAILED ANATOMIC EXAMINATION, TRANSABDOMINAL APPROACH; SINGLE OR FIRST GESTATION Tubal Ligation [place] [facility] Tonsillectomy [place] [facility] Ligation of Fallopian Tube [facility] Plan of Care Planned Activity Planned Date Details Comments Source Future Scheduled 2023-01-13 [facility] Influenza Seasonal [facility] 00:00:00 (>/= 19 yrs) [code = IMM Influenza Seasonal (>/= 19 yrs)] Future Scheduled 2022-12-14 Influenza Vaccine (#1) [facility] Test 00:00:00 [code = Influenza Medical Ce nter Vaccine (#1)] Diagnostic Test 2022-10-08 drug screen, urine [code [place] [facility] Pending 00:00:00 = drug screen, urine] Group Future Scheduled 2022-10-04 Screening for malignant [facility] 12:40:33 neoplasm of cervix Hospital (procedure) [code = 263365292] Future Scheduled 2022-10-04 INFLUENZA VACCINE [code [facility] 12:40:33 = INFLUENZA VACCINE] Hospita l Future Scheduled 2022-10-04 COVID-19 VACCINE (#1) [facility] 12:40:33 [code = COVID-19 VACCINE Hos pital (#1)] Future Scheduled 2022-07-19 COVID-19 VACCINE (#1) [facility] 18:24:04 [code = COVID-19 VACCINE Hos pital (#1)] Future Scheduled 2022-07-19 Screening for Chlamydia [facility] 18:24:04 trachomatis (procedure) Hosp ital [code = 557339488] Future Scheduled 2022-07-19 Screening for malignant [facility] 18:24:04 neoplasm of cervix Hospital (procedure) [code = 844730697] Future Scheduled 2022-07-19 INFLUENZA VACCINE [code [facility] 18:24:04 = INFLUENZA VACCINE] Hospita l Future Scheduled 2022-06-25 COVID-19 VACCINE (#1) [facility] 10:56:52 [code = COVID-19 VACCINE Hos pital (#1)] Future Scheduled 2022-06-25 Screening for Chlamydia [facility] 10:56:52 trachomatis (procedure) Hosp ital [code = 617973319] Future Scheduled 2022-06-25 Screening for malignant [facility] 10:56:52 neoplasm of cervix Hospital (procedure) [code = 776108446] Future Scheduled 2022-06-25 INFLUENZA VACCINE [code [facility] 10:56:52 = INFLUENZA VACCINE] Hospita l Future Scheduled 2022-06-25 COVID-19 VACCINE (#1) [facility] 10:56:52 [code = COVID-19 VACCINE Hos pital (#1)] Future Scheduled 2022-06-25 Screening for Chlamydia [facility] 10:56:52 trachomatis (procedure) Hosp ital [code = 704327388] Future Scheduled 2022-06-25 Screening for malignant [facility] 10:56:52 neoplasm of cervix Hospital (procedure) [code = 162402699] Future Scheduled 2022-06-25 INFLUENZA VACCINE [code [facility] 10:56:52 = INFLUENZA VACCINE] [facility] Diagnostic Test 2022-06-07 C reactive protein, QN, [facility] Pending 00:00:00 serum or plasma [code = [facility] C reactive protein, QN, [facility] serum or plasma] Diagnostic Test 2022-06-07 vitamin D, 25-hydroxy, [facility] Pending 00:00:00 total, serum [code = [facility] vitamin D, 25-hydroxy, Outre ach Program total, serum] Diagnostic Test 2022-06-07 vitamin B12 + folate, [facility] 00:00:00 serum or blood [code = [facility] vitamin B12 + folate, Outrea Program serum or blood] Diagnostic Test 2022-06-07 ESR (erythrocyte [place] [facility] Pending 00:00:00 sedimentation rate), [facility] blood [code = ESR Outreach P rogram (erythrocyte sedimentation rate), blood] Diagnostic Test 2022-06-07 ANDREA (antinuclear [facility] Pending 00:00:00 antibodies) screen, [facility] serum [code = ANDREA Outreach P rogram (antinuclear antibodies) screen, serum] Diagnostic Test 2022-06-07 iron + TIBC + ferritin, [facility] P[facility] 00:00:00 serum [code = iron + [facility] TIBC + ferritin, serum] Out[facility] each [facility] Diagnostic Test 2022-06-07 lipase, serum or plasma [facility] [place] Pending 00:00:00 [code = lipase, serum or [facility] plasma] Outreach Progra m Diagnostic Test 2022-06-07 igg, subclass 4, [place] [facility] 00:00:00 quantitative, serum [facility] [code = igg, subclass 4, Out reach [facility] quantitative, serum] Diagnostic Test 2022-06-07 triglycerides, serum [facility] Pending 00:00:00 [code = triglycerides, [facility] serum] [facility] Diagnostic Test 2022-06-07 TSH, ultra-sensitive, [place] P[facility] 00:00:00 serum [code = TSH, [facility] ultra-sensitive, serum] Out[facility] Diagnostic Test 2022-06-07 Hepatitis C IgG Ab, [place] Pending 00:00:00 qual, serum [code = [facility] Hepatitis C IgG Ab, Outreach [facility] qual, serum] Future Scheduled 2022-04-[address] [facility] Test 00:00:00 (12+) [code = DEPRESSION [facility] SCREENING (12+)] Future Scheduled 2022-04-05 Screening for malignant [facility] 16:41:03 neoplasm of cervix Hospital (procedure) [code = 656216887] Future Scheduled 2022-04-05 INFLUENZA VACCINE [code [facility] 16:41:03 = INFLUENZA VACCINE] Hospita l Future Scheduled 2022-04-05 COVID-19 VACCINE (#1) [facility] 16:41:03 [code = COVID-19 VACCINE Hos pital (#1)] Future Scheduled 2022-04-05 Screening for Chlamydia [facility] 16:41:03 trachomatis (procedure) Hosp ital [code = 744382613] Future Scheduled 2022-04-05 Screening for malignant [facility] 16:41:03 neoplasm of cervix Hospital (procedure) [code = 749291528] Future Scheduled 2022-04-05 INFLUENZA VACCINE [code [facility] 16:41:03 = INFLUENZA VACCINE] Hospita l Future Scheduled 2022-04-05 COVID-19 VACCINE (#1) [facility] 16:41:03 [code = COVID-19 VACCINE Hos pital (#1)] Future Scheduled 2022-04-05 Screening for Chlamydia [facility] 16:41:03 trachomatis (procedure) Hosp ital [code = 652105355] Future Scheduled 2022-04-05 Screening for malignant [facility] 16:41:03 neoplasm of cervix Hospital (procedure) [code = 581168299] Future Scheduled 2022-04-05 INFLUENZA VACCINE [code [facility] 16:41:03 = INFLUENZA VACCINE] Hospita l Future Scheduled 2022-04-05 COVID-19 VACCINE (#1) [facility] 16:41:03 [code = COVID-19 VACCINE Hos pital (#1)] Future Scheduled 2022-04-05 Screening for Chlamydia [facility] 16:41:03 trachomatis (procedure) Hosp ital [code = 473139401] Future Scheduled 2022-04-05 Screening for malignant [facility] 16:41:03 neoplasm of cervix Hospital (procedure) [code = 705315380] Future Scheduled 2022-04-05 INFLUENZA VACCINE [code [facility] 16:41:03 = INFLUENZA VACCINE] Hospita l Future Scheduled 2022-04-05 COVID-19 VACCINE (#1) [facility] 16:41:03 [code = COVID-19 VACCINE Hos pital (#1)] Future Scheduled 2022-04-05 Screening for Chlamydia [facility] 16:41:03 trachomatis (procedure) Hosp ital [code = 978792533] Future Scheduled 2022-04-05 Screening for malignant [facility] 16:41:03 neoplasm of cervix Hospital (procedure) [code = 140089723] Future Scheduled 2022-04-05 INFLUENZA VACCINE [code [facility] 16:41:03 = INFLUENZA VACCINE] Hospita l Future Scheduled 2022-04-05 COVID-19 VACCINE (#1) [facility] 16:41:03 [code = COVID-19 VACCINE Hos pital (#1)] Future Scheduled 2022-04-05 Screening for Chlamydia [facility] 16:41:03 trachomatis (procedure) Hosp ital [code = 881672735] Future Scheduled 2022-04-05 Screening for malignant [facility] 16:41:03 neoplasm of cervix Hospital (procedure) [code = 835661088] Future Scheduled 2022-04-05 INFLUENZA VACCINE [code [facility] 16:41:03 = INFLUENZA VACCINE] Hospita l Future Scheduled 2022-04-05 COVID-19 VACCINE (#1) [facility] 16:41:03 [code = COVID-19 VACCINE Hos pital (#1)] Future Scheduled 2022-04-05 Screening for Chlamydia [facility] 16:41:03 trachomatis (procedure) Hosp ital [code = 177635876] Future Scheduled 2022-02-15 HEPATITIS B VACCINES (1 [facility] 18:27:03 of 3 - 3-dose series) Hospit al [code = HEPATITIS B VACCINES (1 of 3 - 3-dose series)] Future Scheduled 2022-02-15 COVID-19 VACCINE (#1) [facility] 18:27:03 [code = COVID-19 VACCINE Hos pital (#1)] Future Scheduled 2022-02-15 Screening for Chlamydia [facility] 18:27:03 trachomatis (procedure) Hosp ital [code = 253694895] Future Scheduled 2022-02-15 Screening for malignant [facility] 18:27:03 neoplasm of cervix Hospital (procedure) [code = 552053806] Future Scheduled 2022-02-15 INFLUENZA VACCINE [code [facility] 18:27:03 = INFLUENZA VACCINE] Hospita l Future Scheduled 2022-01-13 [facility] Influenza Seasonal [facility] 00:00:00 (>/= 19 yrs) [code = IMM Influenza Seasonal (>/= 19 yrs)] Future Scheduled 2022-01-13 [facility] Influenza Seasonal [facility] 00:00:00 (>/= 19 yrs) [code = IMM Influenza Seasonal (>/= 19 yrs)] Future Scheduled 2022-01-13 [facility] Influenza [facility]al [facility] 00:00:00 (>/= 19 yrs) [code = IMM Influenza Seasonal (>/= 19 yrs)] Future Scheduled 2022-01-13 [facility] Influenza [facility]al [facility] 00:00:00 (>/= 19 yrs) [code = IMM Influenza Seasonal (>/= 19 yrs)] Future Scheduled 2022-01-13 [facility]enza [facility]al [facility] 00:00:00 (>/= 19 yrs) [code = IMM Influenza Seasonal (>/= 19 yrs)] Future Scheduled 2022-01-13 [facility] Influenza [facility]al [facility] 00:00:00 (>/= 19 yrs) [code = IMM Influenza Seasonal (>/= 19 yrs)] Future Scheduled 2022-01-13 [facility]enza [facility]al [facility] 00:00:00 (>/= 19 yrs) [code = IMM Influenza Seasonal (>/= 19 yrs)] Future Scheduled 2022-01-13 [facility]enza [facility]al [facility] 00:00:00 (>/= 19 yrs) [code = IMM Influenza Seasonal (>/= 19 yrs)] Future Scheduled 2022-01-13 [facility] Influenza [facility]al [facility] 00:00:00 (>/= 19 yrs) [code = IMM Influenza Seasonal (>/= 19 yrs)] Future Scheduled 2022-01-13 IMM Influenza Seasonal [facility] 00:00:00 (>/= 19 yrs) [code = IMM Influenza Seasonal (>/= 19 yrs)] Future Scheduled 2021-12-14 HEPATITIS B VACCINES (1 [facility] 04:05:20 of 3 - 3-dose series) Hospit al [code = HEPATITIS B VACCINES (1 of 3 - 3-dose series)] Future Scheduled 2021-12-14 COVID-19 VACCINE (#1) [facility] 04:05:20 [code = COVID-19 VACCINE Hos pital (#1)] Future Scheduled 2021-12-14 Screening for Chlamydia [facility] 04:05:20 trachomatis (procedure) Hosp ital [code = 000348849] Future Scheduled 2021-12-14 Screening for malignant [facility] 04:05:20 neoplasm of cervix Hospital (procedure) [code = 205104203] Future Scheduled 2021-12-14 INFLUENZA VACCINE [code [facility] 04:05:20 = INFLUENZA VACCINE] Hospita l Future Scheduled 2021-01-13 IMM Influenza Seasonal [facility] 00:00:00 Jan to June (>/= 19 yrs) [code = IMM Influenza Seasonal Jan to June (>/= 19 yrs)] Future Scheduled 2021-01-13 IMM Influenza Seasonal [facility] 00:00:00 Jan to June (>/= 19 yrs) [code = IMM Influenza Seasonal Jan to June (>/= 19 yrs)] Future Scheduled 2020-11-10 COVID-19 VACCINE (2 [facility] series) [code = COVID-19 VACCINE (2 - Booster for Moderna series)] Future Scheduled 2019-11-25 DTAP/TDAP/TD VACCINES ([address] [facility] Test 00:00:00 - Td or Tdap) [code = [facility] DTAP/TDAP/TD VACCINES (3 - Td or Tdap)] Future Scheduled 2018 Screening for malignant [facility] 00:00:00 neoplasm of cervix (procedure) [code = 326702601] Future Scheduled 2018 Screening for malignant [facility] Test 00:00:00 neoplasm of cervix Medical C enter (procedure) [code = 468151738] Future Scheduled 2018 Screening for malignant [facility] 00:00:00 neoplasm of cervix (procedure) [code = 671023544] Future Scheduled 2018 Screening for malignant [facility] 00:00:00 neoplasm of cervix (procedure) [code = 308086194] Future Scheduled 2018 Screening for malignant [facility] 00:00:00 neoplasm of cervix (procedure) [code = 541404728] Future Scheduled 2018 Screening for malignant [facility] 00:00:00 neoplasm of cervix (procedure) [code = 622619259] Future Scheduled 2018 Screening for malignant [facility] 00:00:00 neoplasm of cervix (procedure) [code = 259643577] Future Scheduled 2018 Screening for malignant [facility] 00:00:00 neoplasm of cervix (procedure) [code = 048603159] Future Scheduled 2018 Screening for malignant [facility] 00:00:00 neoplasm of cervix (procedure) [code = 004196452] Future Scheduled 2018 Screening for malignant [facility] 00:00:00 neoplasm of cervix (procedure) [code = 005174841] Future Scheduled 2018 Screening for malignant [facility] 00:00:00 neoplasm of cervix (procedure) [code = 319439866] Future Scheduled 2018 Screening for malignant [facility] 00:00:00 neoplasm of cervix (procedure) [code = 195459611] Future Scheduled 2018 Screening for malignant [facility] 00:00:00 neoplasm of cervix (procedure) [code = 587234236] Future Scheduled 2018 Screening for malignant [facility] 00:00:00 neoplasm of cervix (procedure) [code = 217093946] Future Scheduled 2015-08-27 HEPATITIS C [facility]CRE[facility]ING [facility] 00[facility]00 [code = HEPATITIS C Medical Center SCREENING] Future Scheduled 2012 Human [address] [facility] 00:00:00 virus screening Medical Cent er (procedure) [code = 888309867] Future Scheduled [address] [facility] Test 00:00:00 Counseling and Screening [facility] (12+) [code = Tobacco Cessation Counseling and Screening (12+)] Future Scheduled 2009 COVID-19 Vaccine (1) [facility] 00:00:00 [code = COVID-19 Vaccine (1)] Future Scheduled 2009 COVID-19 Vaccine (1) [facility] 00:00:00 [code = COVID-19 Vaccine (1)] Future Scheduled 1998-02-26 COVID-19 Vaccine (#1) [facility] 00:[facility]:00 [code = COVID-19 Vaccine (#1)] Future Scheduled 1998-02-26 COVID-19 Vaccine (#1) [facility] 00:00:00 [code = COVID-19 Vaccine (#1)] Future Scheduled 1998-02-26 COVID-19 Vaccine (#1) [facility] 00:00:00 [code = COVID-19 Vaccine (#1)] Future Scheduled 1998-02-26 COVID-19 Vaccine (#1) [facility] 00:00:00 [code = COVID-19 Vaccine (#1)] Future Scheduled 1998-02-26 COVID-19 Vaccine (#1) [facility] 00:00:00 [code = COVID-19 Vaccine (#1)] Future Scheduled 1998-02-26 COVID-19 Vaccine (#1) [facility] 00:00:00 [code = COVID-19 Vaccine (#1)] Future Scheduled 1998-02-26 COVID-19 Vaccine (#1) [facility] 00:00:00 [code = COVID-19 Vaccine (#1)] Future Scheduled 1998-02-26 COVID-19 Vaccine (#1) [facility] 00:00:00 [code = COVID-19 Vaccine (#1)] Future Scheduled 1998-02-26 COVID-19 Vaccine (#1) [facility] 00:00:00 [code = COVID-19 Vaccine (#1)] Future Scheduled 1998-02-26 COVID-19 Vaccine (#1) [facility] 00:00:00 [code = COVID-19 Vaccine (#1)] Future Scheduled 1998-02-26 COVID-19 Vaccine (#1) [facility] 00:00:00 [code = COVID-19 Vaccine (#1)] Future Scheduled 1997 Fluoride Varnish [code = [facility] 00:00:00 Fluoride Varnish] Future Scheduled Screening for malignant [facility] neoplasm of cervix Hospital (procedure) [code = 268426037] Future Scheduled INFLUENZA VACCINE [code [facility] = INFLUENZA VACCINE] Hospita l Future Scheduled CHLAMYDIA SCREENING [facility] odist Test [code = CHLAMYDIA Hospital SCREENING] Future Scheduled COVID-19 VACCINE (1) [facility] Test [code = COVID-19 VACCINE Hos pital (1)] Instructions [facility] Encounters Start End Encounter Admission Attending Care Care Encounter Source Date/Time Date/Time Type Type Clinicians Facility Department ID 2022-03-02 Inpatient [facility] [id number] [facility] 13:57:04 [id number] [place] 2022-01-22 Outpatient [facility] [id number] [place] 15:22:36 [id number] [facility] 2022-01-14 Outpatient [facility] [id number] [place] 19:22:32 [id number] [facility] 2022-01-11 Outpatient [facility] [id number] [place] 15:52:30 [id number] [facility] 2022-10-08 2022-10-08 Outpatient BLANE GIBBONS [facility] [id number] [place] 14:55:00 14:55:00 TORI [id number] [facility] 2022-10-08 2022-10-08 Tori MM [place] - [id number] [place] [facility] 00:00:00 00:00:00 Lizbet Bean Medical Medical EMBROIDERY CUTTER: [address] [facility] [address], [place] [address] , Ph. 2022-10-05 2022-10-05 [place] [id number] -2022 [place] 00:00:00 00:00:00 06 [facility] 2022-10-05 2022-10-05 Outpatient Hawkins_M MMG MMG [id number] -2022 [place] 00:00:00 00:00:00 06 [facility] 2022-09-04 2022-09-04 Outpatient Hawkins_M MMG MMG [id number] -2022 [place] 00:00:00 00:00:00 0523 Medical Group 2022-08-27 2022-08-27 Outpatient Hawkins_[place] [id number] -2022 [place] 00:00:00 00:00:00 0515 Medical Group 2022-08-27 2022-08-27 Tori MM [place] - [id number] M [facility] 00:00:00 00:00:00 Lizbet Bean Medical Medical EMBROIDERY CUTTER: [address] [facility] [address], [place] [address] , Ph. 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 Lab Main [facility] 1.2.8 [id number] [id number] Univers 13:15:00 13:30:00 Visit Joanne Hernandez [id number] ity of [place]7.2.686 [place] [id number] [address] 2022-08-01 2022-08-01 Outpatient R MOSHE [facility] [id number] Univers 13:15:00 13:15:00 JOANNE trevino [facility] 2022-08-01 2022-08-01 Orders Doctor NATALIA [id number] Univers 00:00:00 00:00:00 Only Unassigned, [place] [id number] ity of [place] [facility] [id number] Eliel as [id number] [address] 2022-07-30 2022-07-30 Tori [facility] [place] - [id number] M atagor 00:00:00 00:00:00 Lizbet Bean, Medical Medical 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 2022-07-27 2022-07-28 Outpatient ER FRITZ YUEN [facility] [id number] SLEAmandeep 21:45:00 18:24:00 [facility] 2022-07-27 2022-07-28 [facility] Elan Salmeron [facility] C [id number] [facility] 21:45:00 18:24:00 Encounter Rajat Yuen [facility] 2022-07-26 2022-07-26 Outpatient [facility] [id number] [place] 00:00:00 00:00:00 0413 Medical Group 2022-07-26 2022-07-26 Outpatient Jourdan[facility]J [facility] [id number] [place] 00:00:00 00:00:00 0417 Medical Group 2022-07-26 2022-07-26 Outpatient Jourdan_J [facility] [id number] [place] 00:00:00 00:00:00 0424 Medical Group 2022-07-13 2022-07-13 Emergency [facility] [id number] Univers 08:25:00 16:12:00 Brady Cabrales DERRY 350.1.13.10 i [facility] [id number] [facility] [id number] [address] 2022-07-13 2022-07-13 Emergency X [facility] [id number] Univers 08:25:00 16:12:00 BRADY trevino [facility] 2022-07-06 2022-07-06 Outpatient Jourdan_J [facility] [id number] [place] 00:00:00 00:00:00 0324 Medical [facility] 2022-07-06 2022-07-06 Outpatient Jourdan_J [facility] [id number] [place] 00:00:00 00:00:00 0325 [facility] 2022-07-06 2022-07-06 Leon [facility] [place] - [id number] M atagor 00:00:00 00:00:00 DO Jourdan: Discovery calos esquivel [address] [place] [address] - [address], [facility] [place] [address] , Ph. [phone] 2022-07-05 2022-07-05 Outpatient Edwige[facility]ma [facility] [id number] -2022 [place] 00:00:00 00:00:00 0323 [facility] 2022-07-05 2022-07-05 Tori [facility] [place] - [id number] Gemma atagor 00:00:00 00:00:00 Lizbet Bean [facility] EMBROIDERY CUTTER: [address] [facility] [address], [place] [address] , Ph. 2022-06-30 2022-06-30 Outpatient Rocky CHANCEELUKAS [facility] [id number] Univers 10:00:00 10:00:00 LUKAS MORENO [facility] 2022-06-29 2022-06-29 Outpatient BLANE SERRATO [facility] [id number] [place] 07:04:00 07:04:00 LEON -[id number] [facility] 2022-06-25 2022-06-25 Outpatient BLANE MEJIA [facility] [id number] [place] 10:54:00 10:54:00 LIANA -[id number] [facility] 2022-06-25 2022-06-25 Outpatient Jourdan_J [facility] [id number] [place] 00:00:00 00:00:00 0313 [facility] 2022-06-25 2022-06-25 Outpatient Young_J [facility] [id number] [place] 00:00:00 00:00:00 0314 [facility] 2022-06-25 2022-06-25 Outpatient Young_J [facility] [id number] [place] 00:00:00 00:00:00 0315 [facility] 2022-06-25 2022-06-25 Leon [facility] [place] - [id number] M atagor 00:00:00 00:00:00 DO Jourdan: Discovery calos esquivel [address] [place] [address], [place] - [address], [facility], [facility] [address] , Ph. [phone] 2022-06-18 2022-06-18 Outpatient Ferguson_Ro ROBERT [facility] 857 [place] 00:00:00 00:00:00 bin 0306 [facility] 2022-06-14 2022-06-14 Outpatient Ferguson_Ro MEHOP [facility] 857 [id number] [place] 00:00:00 00:00:00 bin 0302 [facility] 2022-06-08 2022-06-08 Outpatient Ferguson_Ro DCHOP [facility] 857 [place] 00:00:00 00:00:00 bin 0224 [facility] 2022-06-07 2022-06-07 Outpatient Ferguson_Ro DCHOP [facility] 857 [place] 00:00:00 00:00:00 bin 0223 [facility] 2022-06-07 2022-06-07 Liana Ewing [facility] [place] - [id number] [place] 00:00:00 00:00:00 Rowan Mejia MD: [id number] 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 2022-06-06 2022-06-06 Outpatient AMBREEN_FAR [facility] 85 [place] 00:00:00 00:00:00 HANA 0222 [facility] 2022-06-04 2022-06-04 Outpatient BLANE EDWIGE, [facility] [id number] [place] 16:31:00 16:31:00 TORI [id number] [facility] 2022-06-04 2022-06-04 Tori [facility] [place] - [id number] atagor 00:00:00 00:00:00 [facility]: [address] [facility] [address], [place] [address] , Ph. 2022-05-31 2022-05-31 Emergency ER CATANESCU, [facility] [id number] [place] 21:05:00 21:15:00 IGNACIO -[id number] [facility] 2022-05-28 2022-05-28 Emergency ER LEAL, [facility] [id number] [place] 21:28:00 23:37:00 YOLETTE -[id number] [facility] 2022-05-18 2022-05-18 Tori [facility] [place] - [id number] M at[place]or 00:00:00 00:00:00 [facility] EM[facility]OIDERY CUTTER: [address] [facility] [address], [place] [address] , Ph. 2022-05-17 2022-05-17 Telephone Josh [facility] 1.2.840.114 [id number] Univers 00:00:00 00:00:00 [facility] [id number] ity of [place] 4.2.7.2.686 Eliel as TERESE?BLEA [id number] [address] MEDICAL OFFICE BUILDING 2022-05-15 2022-05-15 Tori [facility] [place] - [id number] M at[place]or 00:00:00 00:00:00 [facility] EMBROIDERY CUTTER: [address] [facility] [address], [place] [address] , Ph. 2022-05-03 2022-05-03 Orders Doctor FISHER 1.2.840.114 [id number] Univers 00:00:00 00:00:00 Only Unassigned, [place] 350.1.13.10 ity of [facility] 4.2.7.2.686 Eliel as [id number] [address] 2022-03-16 2022-03-16 Outpatient LUKAS KONG [facility] [id number] [facility] 14:00:00 14:00:00 LUKAS MORENO [facility] 2022-02-23 2022-02-23 Outpatient Edw[facility] [id number] -2022 [place] 00:00:00 00:00:00 0131 Medical [facility] 2022-02-23 2022-02-23 Outpatient Edwige_M [facility] [id number] -2022 [place] 00:00:00 00:00:00 0203 [facility] 2022-02-23 2022-02-23 Outpatient Edwige_[facility] [id number] [place] 00:00:00 00:00:00 0220 [facility] 2022-02-23 2022-02-23 Outpatient Hawkins_M [facility] [id number] -2022 [place] 00:00:00 00:00:00 022 [facility] 2022-02-23 2022-02-23 Outpatient Hawkins[facility]M [facility] [id number] -2022 [place] 00:00:00 00:00:00 0227 [facility] 2022-02-20 2022-02-20 Outpatient Hawkins_M [facility] [id number] [place] 00:00:00 00:00:00 1108 da [facility] 2022-02-20 2022-02-20 Telephone Josh [facility] 1.2.840.114 [id number] Univers 00:00:00 00:00:00 [facility] [id number] [facility] [id number] Eliel as TERESE?BLEA [id number] [facility] [address] [place] MEDICAL OFFICE [facility] 2022-02-20 2022-02-20 Tori [facility] [place] - [id number] M at[place]or 00:00:00 00:00:00 Lizbet Bean, [facility] Medical EMBROIDERY CUTTER: [address] [facility] [address], [place] [address] , Ph. 2022-02-09 2022-02-09 Outpatient Hawkins_M [facility] [id number] [place] 00:00:00 00:00:00 1028 Medical Group 2022-01-24 2022-01-24 Outpatient [facility] [id number] [place] 08:45:00 08:45:00 Health 2022-01-22 2022-01-22 Telephone Josh [facility] 1.2.840.114 [id number] Univers 00:00:00 00:00:00 [facility] [id number] ity of [place] [id number] Eliel as TERESE?BLEA [id number] Md kellie[address] MEDICAL OFFICE [facility] 2022-01-17 2022-01-17 Outpatient Hawkins_M [facility] [id number] [place] 00:00:00 00:00:00 1005 Medical Group 2022-01-17 2022-01-17 Tori [facility] [place] - [id number] M at[place]or 00:00:00 00:00:00 [facility] EMBROIDERY CUTTER: [address] [facility] [address], [place] [address] , Ph. 2022-01-10 2022-01-10 Telephone [facility] 1.2.840.114 [id number] Univers 00:00:00 00:00:00 [facility] [id number] ity of [place] 4.2.7.2.686 Eliel as TERESE?BLEA [id number] [address] OFFICE [facility] 2022-01-05 2022-01-05 Office [facility] 1.2.840.114 [id number] Univers 16:00:00 16:52:54 Visit [facility] [id number] ity of [place] [id number] Eliel as TERESE?BLEA [id number] [address] OFFICE [facility] 2022-01-05 2022-01-05 Outpatient LUKAS KONG [facility] [id number] Univers 16:00:00 16:52:54 [facility]-01-05 2022-01-05 Letter Josh [facility] 1.2.840.114 [id number] Univers 00:00:00 00:00:00 (Out) [facility] [id number] [facility] [id number] Eliel as TERESE?BLEA [id number] [address] MEDICAL OFFICE BUILDING 2022-01-04 2022-01-04 Outpatient [facility] [id number] [place] 00:00:00 00:00:00 0922 Medical Group 2022-01-04 2022-01-04 Tori S[place] - [id number] M at[place]or 00:00:00 00:00:00 Lizbet Bean Medical Medical EMBROIDERY CUTTER: [address] [facility] [address], [place] [address] , Ph. 2021-10-23 2021-10-23 [place] [id number] -2021 [place] 02:43:00 02:43:00 0711 Medical Group 2021-10-23 2021-10-23 Tori [facility] [place] - [id number] M [place] 00:00:00 00:00:00 Lizbet Bean Medical Medical EMBROIDERY CUTTER: [address] [facility] [address], [place] [address] , Ph. 2021-10-05 2021-10-05 [place] [id number] -2021 [place] 09:37:00 09:37:00 0623 Medical Group 2021-10-05 2021-10-05 Outpatient BLANE GIBBONS, [facility] [id number] [place] 09:34:00 09:34:00 TORI [id number] [facility] 2021-10-05 2021-10-05 Tori [facility] [place] - [id number] M [place] 00:00:00 00:00:00 Lizbet Bean Medical Medical EMBROIDERY CUTTER: [address] [facility] [address], [place] [address] , Ph. 2021-10-04 2021-10-04 [place] [id number] -2021 [place] 04:46:00 04:46:00 0622 Medical Group 2021-09-14 2021-09-14 [place] [id number] [place] 04:46:00 04:46:00 0602 Medical Group 2021-09-14 2021-09-14 Maritza [place] - [id number] [place] 00:00:00 00:00:00 Discovery Desire BrittP-C: [address] [facility] [place] [address], [facility], [place] [address] , Ph. 2021-09-05 2021-09-05 Outpatient [facility] [id number] [place] 10:23:00 10:23:00 0524 [facility] 2021-09-05 2021-09-05 YASMANY Hill [place] - [id number] [place] 00:00:00 00:00:00 MD: Harika [facility], [facility] [address], [facility], [place]ol[place]ol [place] [facility] [address] , Ph. 2021-08-24 2021-08-24 Outpatient Yan_W [facility] [id number] [place] 10:31:00 10:31:00 0512 [facility] 2021-08-19 2021-08-19 Emergency ER HEMALATHA, [facility] [id number] [place] 12:57:00 13:44:00 HERNANDEZ -[id number] [facility] 2021-08-14 2021-08-14 Outpatient LOKI SOFIA [facility] [id number] [place] 07:27:00 07:27:00 -[id number] [facility] 2021-08-14 2021-08-14 Outpatient Hawkins_M [facility] [id number] -2021 [place] 04:26:00 04:26:00 0502 Medical [facility] 2021-08-14 2021-08-14 Outpatient Hawkins_M MMG [facility] [id number] -2021 [place] 04:26:00 04:26:00 0509 Medical [facility] 2021-07-27 2021-07-27 Outpatient [facility] [id number] -2021 [place] 12:50:00 12:50:00 0414 [facility] 2021-07-27 2021-07-27 Outpatient BLANE GIBBONS, [facility] [id number] [place] 12:16:00 12:16:00 TORI -[id number] [facility] 2021-07-27 2021-07-27 Outpatient AMBREEN_F[facility] 857 [place] 02:53:00 02:53:00 WILMANLilibeth 0414 [facility] 2021-07-27 2021-07-27 Tori [facility] [place] - [id number] M [place] 00:00:00 00:00:00 Lizbet Bean Medical Medical EMBROIDERY CUTTER: [address] [facility] [address], [place] [address] , Ph. 2021-07-25 2021-07-25 [place] [id number] [place] 11:17:00 11:17:00 0412 [facility] 2021-07-25 2021-07-25 [place] [id number] 022 [place] 11:17:00 11:17:00 0413 [facility] 2021-07-25 2021-07-25 Loki Ramos [facility] [place] - [id number] [place] 00:00:00 00:00:00 MD: Harika Daly [facility] [address] [place] [address], Otolaryngol [facility] [address] , Ph. 2021-07-24 2021-07-24 [place] [id number] -2021 [place] 02:56:00 02:56:00 0411 [facility] 2021-07-24 2021-07-24 Tori [facility] [place] - [id number] M at[place]or 00:00:00 00:00:00 Lizbet Bean Medical Medical EMBROIDERY CUTTER: [address] [facility] [address], [place] [address] , Ph. 2021-07-12 2021-07-12 [place] [id number] -2021 [place] 03:56:00 03:56:00 0330 [facility] 2021-07-12 2021-07-12 [place] [id number] -2021 [place] 03:56:00 03:56:00 0331 Medical Group 2021-07-12 2021-07-12 Tori SANDYG [place] - [id number] M at[place]or 00:00:00 00:00:00 Lizbet Bean, Medical Medical EMBROIDERY CUTTER: [address] [address], [place] [address] , Ph. 2021-06-21 2021-06-21 Outpatient Edwige_M MMG MMG [id number] -2021 [place] 04:09:00 04:09:00 [id number] [facility] 2021-06-21 2021-06-21 Tori MMG [place] - [id number] M [place] 00:00:00 00:00:00 Lizbet Bean, Medical Medical EMBROIDERY CUTTER: [address] [address], [place] [address] , Ph. 2021-06-02 2021-06-02 Outpatient Edwige_M MMG MMG [id number] -2021 [place] 03:48:00 03:48:00 [id number] [facility] 2021-06-02 2021-06-02 Tori SANDYG [place] - [id number] M [place] 00:00:00 00:00:00 Lizbet Bean, Medical Medical EMBROIDERY CUTTER: [address] [address], [place] [address] , Ph. 2021-05-22 2021-05-22 Outpatient Edwige_M MMG MMG [id number] -2021 [place] 12:37:00 12:37:00 0207 [facility] 2021-05-22 2021-05-22 [id number] [place] 12:36:00 12:36:00 TORI [id number] [facility] 2021-05-22 2021-05-22 Tori SANDYG [place] - [id number] M [place] 00:00:00 00:00:00 Riccardo Andrade Medical EMBROIDERY CUTTER: [address] [facility] [address], [place] [address] , Ph. 2021-05-10 2021-05-10 [facility] [place] 05:02:00 05:02:00 WILMANLilibeth 0126 [facility] 2021-05-09 2021-05-09 Outpatient Hawkins_M MMG MMG [id number] -2021 [place] 11:18:00 11:18:00 0125 [facility] 2021-05-09 2021-05-09 Tori MMG [place] - [id number] [place] 00:00:00 00:00:00 Lizbet Bean [facility] Medical EMBROIDERY CUTTER: [address] [facility] [address], [place] [address] , Ph. 2021-04-12 2021-04-12 Outpatient Hawkins_M MMG MMG [id number] -2021 [place] 04:07:00 04:07:00 0124 [facility] 2021-04-12 2021-04-12 Outpatient Hawkins_M MMG MMG [id number] -2021 [place] 04:07:00 04:07:00 0121 [facility] 2021-03-23 2021-03-23 Outpatient Hawkins_M MMG MMG [id number] -2020 [place] 04:37:00 04:37:00 1209 [facility] 2021-03-23 2021-03-23 Outpatient Hawkins_M MMG MMG [id number] -2020 [place] 04:37:00 04:37:00 1216 [facility] 2021-03-23 2021-03-23 Outpatient Hawkins_M MMG MMG [id number] -2020 [place] 04:37:00 04:37:00 1228 [facility] 2021-03-23 2021-03-23 Tori MMG [place] - [id number] [place] 00:00:00 00:00:00 Riccardo Andrade Medical EMBROIDERY CUTTER: [address] [facility] [address], [place] [address] , Ph. 2020-12-27 2020-12-27 Emergency ER LOYD, [facility] [id number] [place] 15:00:00 15:30:00 DANNIELLEKENNETHELMIRADAMIEN -[id number] [facility] 2020-09-06 2020-09-06 Emergency ER KAILA, [facility] [id number] [place] 22:30:00 23:52:00 MADAN -[id number] [facility] 2020-05-19 2020-05-19 Outpatient EL GIBBONS, [facility] [id number] [place] 15:17:00 15:17:00 TORI -[id number] [facility] 2020-05-19 2020-05-19 Outpatient Hawkins_M MMG MMG [id number] -2020 [place] 03:02:00 03:02:00 0209 Medical [facility] 2020-05-19 2020-05-19 Outpatient Hawkins_M MMG MMG [id number] [place] 03:02:00 03:02:00 0224 [facility] 2020-05-19 2020-05-19 Outpatient Hawkins_M MMG MMG [id number] -2020 [place] 03:02:00 03:02:00 0204 [facility] 2020-05-18 2020-05-18 Outpatient Rutledge_L MMG MMG [id number] [place] 03:00:00 03:00:00 0203 Medical [facility] 2020-03-02 2020-03-02 Outpatient Rutledge_L MMG MMG [id number] [place] 02:24:00 02:24:00 1118 Medical [facility] 2020-01-29 2020-01-29 Outpatient BLANE CUENCA, [facility] [id number] [place] 14:53:00 14:53:00 ANABEL -[id number] [facility] 2020-01-21 2020-01-21 Outpatient BLANE CUENCA, [facility] [id number] [place] 11:41:00 11:41:00 ANABEL -[id number] [facility] 2020-01-08 2020-01-08 Outpatient AMBREEN_FAR [place] [id number] [place] 01:41:00 01:41:00 HANA 0925 [facility] 2020-01-08 2020-01-08 Outpatient AMBREEN_FAR [place]HOP [place] [id number] [place] 01:41:00 01:41:00 HANA 1012 [facility] 2020-01-08 2020-01-08 Outpatient AMBREEN_FAR DCHOP [place] [id number] [place] 01:41:00 01:41:00 HANA 1209 [facility] 2019-12-23 2019-12-23 Outpatient Rutledge_L MMG MMG [id number] [place] 12:21:00 12:21:00 1008 [facility] 2019-10-31 2019-10-31 Outpatient Rutledge_L MMG MMG [id number] [place] 07:51:00 07:51:00 0718 [facility] 2019-10-30 2019-10-30 Outpatient EL ADIN, [facility] [id number] [place] 15:52:00 15:52:00 MARTINEZ -[id number] [facility] 2019-10-30 2019-10-30 Outpatient Rutledge_L MMG MMG [id number] [place] 04:04:00 04:04:00 0717 [facility] 2019-10-30 2019-10-30 Martinez MMG [place] - [id number] [place] 00:00:00 00:00:00 Discovery alida Hernadez MD: 600 [facility] [address], [place] [address] , Ph. [phone] 2019-09-21 2019-09-21 Emergency ER MENESES, [facility] [id number] [place] 18:37:00 19:38:00 CEASAR [id number] [facility] 2019-09-20 2019-09-21 Emergency ER STEFANYEN, [facility] [id number] [place] 23:30:00 00:21:00 EMILY [id number] [facility] 2019-09-11 2019-09-11 Emergency ER NIHARIKA [facility] [id number] [place] 18:04:00 19:02:00 ENE -[id number] d a [facility] 2019-09-02 2019-09-02 Outpatient Rutledge_L MMG MMG [id number] [place] 05:24:00 05:24:00 0520 [facility] 2019-09-02 2019-09-02 Outpatient Rutledge_L MMG MMG [id number] [place] 05:24:00 05:24:00 0616 [facility] 2019-09-02 2019-09-02 Outpatient Rutledge_L MMG MMG [id number] [place] 05:24:00 05:24:00 0707 [facility] 2019-09-02 2019-09-02 Outpatient Rutledge_L MMG MMG [id number] [place] 05:24:00 05:24:00 0716 [facility] 2019-07-07 2019-07-07 Outpatient Rutledge_L MMG MMG [id number] [place] 09:58:00 09:58:00 0324 [facility] 2019-07-07 2019-07-07 Outpatient Rutledge_L MMG MMG [id number] [place] 09:58:00 09:58:00 0326 [facility] 2019-07-01 2019-07-01 Outpatient Rutledge_L MMG MMG [id number] [place] 08:57:00 08:57:00 0318 [facility] 2019-07-01 2019-07-01 Anabel MMG [place] - [id number] [place] 00:00:00 00:00:00 George Hoffman Medical Medica toy MD: [address] [facility] [address], [place] [address] , Ph. [phone] 2019-06-11 2019-06-11 Outpatient Rutledge_L MMG MMG [id number] [place] 07:31:00 07:31:00 0227 [facility] 2019-06-11 2019-06-11 Outpatient BLANE CUENCA [facility] [id number] [place] 06:04:00 06:04:00 ANABEL [facility][id number] [facility] 2019-06-10 2019-06-10 Outpatient Rutledge_L MMG MMG [id number] [place] 01:13:00 01:13:00 0226 [facility] 2019-06-10 2019-06-10 Anabel MM [place] - [id number] [place] 00:00:00 00:00:00 George Hoffman Medical Medica toy CONTRERAS: [address] [facility] [address] [address] , Ph. [phone] 2019-06-09 2019-06-09 Outpatient Rutledge_L MMG MMG [id number] [place] 10:05:00 10:05:00 0225 Medical [facility] 2019-05-26 2019-05-26 Outpatient Rutledge_L MMG MMG [id number] [place] 10:08:00 10:08:00 0218 Medical [facility] 2019-05-24 2019-05-24 Outpatient Rutledge_L MMG MMG [id number] [place] 01:23:00 01:23:00 0209 Medical [facility] 2019-05-20 2019-05-20 Outpatient Rutledge_L MMG MMG [id number] [place] 04:23:00 04:23:00 0205 Medical [facility] 2019-05-20 2019-05-20 Anabel [facility] [place] - [id number] [place] 00:00:00 00:00:00 George Hoffman Medical Medica toy CONTRERAS: [address] [facility] [address] [address] , Ph. [phone] 2019-05-15 2019-05-15 Outpatient Rutledge_L MMG MMG [id number] [place] 10:18:00 10:18:00 0204 Medical [facility] 2019-05-12 2019-05-12 Outpatient Rutledge_L MMG MMG [id number] [place] 02:38:00 02:38:00 0128 Medical Group 2019-05-02 2019-05-02 Outpatient Rutledge_L MMG MMG [id number] [place] 10:43:00 10:43:00 0118 [facility] 2019-04-30 2019-05-01 Inpatient MIKIE LOZADA [facility] [id number] [place] 05:25:00 09:45:00 ANABEL -[id number] [facility] 2019-04-28 2019-04-28 Outpatient Rutledge_L MMG MMG [id number] [place] 11:48:00 11:48:00 0114 Medical [facility] 2019-04-28 2019-04-28 Martinez MMG [place] - [id number] [place] 00:00:00 00:00:00 Discovery alida Hernadez MD: 600 [facility] [address], [place] [address] , Ph. [phone] 2019-04-27 2019-04-27 Outpatient Rutledge_L MMG MMG [id number] [place] 11:34:00 11:34:00 0113 [facility] 2019-04-26 2019-04-26 Outpatient Rutledge_L MMG MMG [id number] [place] 12:05:00 12:05:00 0112 [facility] 2019-04-24 2019-04-24 Outpatient MIKIE ROSALES [facility] [id number] [place] 16:24:00 16:24:00 HARPER -[id number] [facility] 2019-04-24 2019-04-24 Outpatient Rutledge_L MMG MMG [id number] [place] 04:21:00 04:21:00 0110 [facility] 2019-04-24 2019-04-24 Harper Ewing MMG [place] - [id number] [place] 00:00:00 00:00:00 Discovery alida Badillo WHNP: 600 [facility] [address], [place] [address] , Ph. [phone] 2019-04-23 2019-04-23 Outpatient Rutledge_L MMG MMG [id number] [place] 12:43:00 12:43:00 0109 Medical [facility] 2019-04-23 2019-04-23 Martinez MMG - [id number] [place] 00:00:00 00:00:00 Discovery alida Hernadez MD: [address] [place], [place] [address] , Ph. [phone] 2019-04-19 2019-04-19 Outpatient Rutledge_L MMG MMG [id number] [place] 09:06:00 09:06:00 0105 [facility] 2019-04-19 2019-04-19 Outpatient Rutledge_L MMG MMG [id number] [place] 09:06:00 09:06:00 0108 [facility] 2019-04-16 2019-04-16 Outpatient Rutledge_L MMG MMG [id number] [place] 05:03:00 05:03:00 0102 [facility] 2019-04-16 2019-04-16 Outpatient Rutledge_L MMG MMG [id number] [place] 05:03:00 05:03:00 0103 [facility] 2019-04-16 2019-04-16 Martinez MM [place] - [id number] M [place] 00:00:00 00:00:00 Discovery alida Hernadez MD: [address] [place], [place] [address] , Ph. [phone] 2019-04-02 2019-04-02 Anabel MMG [place] - [id number] [place] 00:00:00 00:00:00 George Hoffman Medical Mediclilibeth yeager MD: [address] [place] [address] , Ph. [phone] 2019-03-30 2019-03-30 Anabel MMG [place] - [id number] M [place] 00:00:00 00:00:00 George Hoffman Medical Mediclilibeth yeager MD: [address] [place] [address] , Ph. [phone] 2019-03-27 2019-03-27 Anabel MMG [place] - [id number] [place] 00:00:00 00:00:00 George Hoffman Medical Pablo yeager MD: [address] [address] , Ph. [phone] 2019-03-09 2019-03-09 Outpatient BLANE BADILLO [facility] [id number] [place] 11:48:00 11:48:00 HARPER [id number] [facility] 2019-03-09 2019-03-09 Harper Ewing [facility] [place] - [id number] [place] 00:00:00 00:00:00 Discovery Mio Badillo: [address] [address] , Ph. [phone] 2019-03-04 2019-03-04 Outpatient BLANE HERNADEZ, [facility] [id number] [place] 15:28:00 15:28:00 MARTINEZ [id number] [facility] 2019-03-04 2019-03-04 Martinez [facility] [place] - [id number] M [place] 00:00:00 00:00:00 Discovery alida Hernadez MD: [address] [address] , Ph. [phone] 2018-10-11 2018-10-11 Emergency ER EVA, [facility] [id number] [place] 11:26:00 13:55:00 JANNETH -[id number] [facility] 2018-08-09 2018-08-09 Emergency ER FRAME, [facility] [id number] [place] 01:09:00 02:33:00 TAYLOR -[id number] [facility] 2018-04-10 2018-04-10 Emergency ER NASRA, [facility] [id number] [place] 16:01:00 17:47:00 SEKOU -[id number] [facility] 2016-12-27 2016-12-27 Emergency ER UGORKASSANDRA, [facility] [id number] [place] 18:24:00 22:22:00 MARBIN [id number] [facility] 2016-07-24 2016-07-24 Emergency ER RACHANA, ROS [facility] [id number] [place] 18:12:00 23:33:00 -[id number] [facility] 2016-07-10 2016-07-10 Emergency ER , [facility] [id number] [place] 03:44:00 06:04:00 WASIM -[id number] [facility] 2016-06-11 2016-06-12 Emergency ER RACHANA, ROS [facility] [id number] [place] 22:13:00 01:55:00 -[id number] [facility] 2016-06-09 2016-06-09 Emergency ER LOYD, [facility] [id number] [place] 01:11:00 04:34:00 OLENDRUFF -[id number] [facility] 2016-05-11 2016-05-11 Emergency ER EMILIANO, [facility] [id number] 60 [place] 16:38:00 18:43:00 [facility][id number] [facility] Results Test Description Test Time Test Comments Results Result [facility] e Comments MR, ABDOMEN, MRCP 2022-07-28 Unlisted 14:46:00 Reason for Exam - Click CHI Yes and Enter [facility] Reason CENTERName: Heath MENDOZA->No AMRIT : 1995 Sex: F FI NAL REPORT MR Abdomen dated 07/28/2022 Comment: Multiplanar T1 and T2-weighted images, respiratory triggered and breath-hold MRCP sequences were obtained. 3-D reconstruction of the abdomen was performed for better evaluation of the biliary tree. Gallbladder is contracted. No gallbladder wall thickening, pericholecystic fluid collection, or gallstone is visualized. MRCP demonstrates normal caliber intra and extra hepatic biliary ducts. No filling defect is seen in the biliary ducts to suggest choledocholithiasis. Common bile duct measures approximately 3 mm in size. Pancreatic duct is normal in caliber. Liver is enlarged measuring 17.4 cm in the right midclavicular line. No focal lesion is seen in the liver. Liver is suboptimally evaluated on the MRCP sequences. Spleen is normal in size. Pancreas and adrenals are unremarkable. Both kidneys are normal in size. Impression:1. No cholelithiasis, choledocholithiasis, or biliary dilatation.2. Hepatomegaly. Signed: Mason Mcginnis MDReport Verified Date/Time: 07/28/2022 14:46:25 C METABOLIC PANEL 2022-07-28 06:38:11 Test Item Value Reference Range Interpretation Comme nts SODIUM (BEAKER) (test 138 meq/L 136-145 code = 381) POTASSIUM (BEAKER) 3.8 meq/L 3.5-5.1 (test code = 379) CHLORIDE (BEAKER) (test 108 meq/L 98-107 H code = 382) CO2 (BEAKER) (test code 23 meq/L 22-29 = 355) BLOOD UREA NITROGEN 5 mg/dL 7-21 L (BEAKER) (test code = 354) CREATININE (BEAKER) 0.81 mg/dL 0.57-1.25 (test code = 358) GLUCOSE RANDOM (BEAKER) 95 mg/dL 70-105 (test code = 652) CALCIUM (BEAKER) (test 8.3 mg/dL 8.4-10.2 L code = 697) EGFR (BEAKER) (test 104 mL/min/1.73 sq I nterpretation of eGFR values code = 1092) m Stage Descripti on Result G1 Normal or high >=90 G2 Mildly decreased 60-89 G3a Mildly to moderately 45-5 9 G3b Moderately to severely 30- 44 G4 Severly decreased 15-29 G5 Kidney failure <15Repo rted eGFR is based on the CK D-EPI 2020 equation that d oes not use a race coefficien tEstimated GFR is not as accurate as Creatinine Clearance in pr edicting glomerular filt ration rate. Estimated GFR i s not applicable for dialysis mikayla parker [employer] ID - BSHEPATIC FUNCTION [id number] 06:38:11 Test Item Value Reference Range Interpretation Comments TOTAL PROTEIN (BEAKER) (test code = 5.0 gm/dL 6.0-8.3 L 770) ALBUMIN (BEAKER) (test code = 1145) 3.3 g/dL 3.5-5.0 L BILIRUBIN TOTAL (BEAKER) (test code 0.3 mg/dL 0.2-1.2 = 377) BILIRUBIN DIRECT (BEAKER) (test 0.1 mg/dL 0.1-0.5 code = 706) ALKALINE PHOSPHATASE (BEAKER) (test 85 U/L 40-150 code = 346) AST (SGOT) (BEAKER) (test code = 80 U/L 5-34 H 353) ALT (SGPT) (BEAKER) (test code = 97 U/L 6-55 H 347) [employer] ID - BSCBC W/PLT COUNT & AUTO [id number] 06:04:32 Test Item Value Reference Range Interpretation Comments WHITE BLOOD CELL COUNT (BEAKER) 5.6 K/ L 3.5-10.5 (test code = 775) RED BLOOD CELL COUNT (BEAKER) 3.85 M/ L 3.93-5.22 L (test code = 761) HEMOGLOBIN (BEAKER) (test code = 9.9 GM/DL 11.2-15.7 L 410) HEMATOCRIT (BEAKER) (test code = 31.0 % 34.1-44.9 L 411) MEAN CORPUSCULAR VOLUME (BEAKER) 81 fL 79-95 (test code = 753) MEAN CORPUSCULAR HEMOGLOBIN 25.7 pg 25.6-32.2 (BEAKER) (test code = 751) MEAN CORPUSCULAR HEMOGLOBIN CONC 31.9 GM/DL 32.2-35.5 L (BEAKER) (test code = 752) RED CELL DISTRIBUTION WIDTH 15.3 % 11.7-14.4 H (BEAKER) (test code = 412) PLATELET COUNT (BEAKER) (test 144 K/CU MM 150-450 L code = 756) MEAN PLATELET VOLUME (BEAKER) 11.5 fL 9.4-12.3 (test code = 754) NUCLEATED RED BLOOD CELLS 0 /100 WBC 0-0 (BEAKER) (test code = 413) NEUTROPHILS RELATIVE PERCENT 36 % (BEAKER) (test code = 429) LYMPHOCYTES RELATIVE PERCENT 53 % (BEAKER) (test code = 430) MONOCYTES RELATIVE PERCENT 7 % (BEAKER) (test code = 431) EOSINOPHILS RELATIVE PERCENT 4 % (BEAKER) (test code = 432) BASOPHILS RELATIVE PERCENT 1 % (BEAKER) (test code = 437) NEUTROPHILS ABSOLUTE COUNT 1.97 K/ L 1.56-6.13 (BEAKER) (test code = 670) LYMPHOCYTES ABSOLUTE COUNT 2.92 K/ L 1.18-3.74 (BEAKER) (test code = 414) MONOCYTES ABSOLUTE COUNT (BEAKER) 0.38 K/ L 0.24-0.36 H (test code = 415) EOSINOPHILS ABSOLUTE COUNT 0.22 K/ L 0.04-0.36 (BEAKER) (test code = 416) BASOPHILS ABSOLUTE COUNT (BEAKER) 0.05 K/ L 0.01-0.08 (test code = 417) IMMATURE GRANULOCYTES-RELATIVE 0.20 % 0.00-1.00 PERCENT (BEAKER) (test code = 2801) COMP. METABOLIC PANEL (52911)2022-07-13 18:35:07 Test Item Value Reference Range Interpretation Comments NA (test code = 137 mmol/L 135-145 7482162186) K (test code = 4.4 mmol/L 3.5-5.0 1373718475) CL (test code = 101 mmol/L 98-108 0804924538) CO2 TOTAL (test code 27 mmol/L 23-31 = 3678251492) AGAP (test code = 9 2-16 0823481518) BUN (test code = 13 mg/dL 7-23 7087425922) GLUCOSE (test code = 87 mg/dL 70-110 9699466370) CREATININE (test code 0.66 mg/dL 0.50-1.04 = 9043350874) TOTAL BILI (test code 0.7 mg/dL 0.1-1.1 = 0530692739) CALCIUM (test code = 9.2 mg/dL 8.6-10.6 4645408118) T PROTEIN (test code 7.2 g/dL 6.3-8.2 = 1414984833) ALBUMIN (test code = 4.6 g/dL 3.5-5.0 6906832565) ALK PHOS (test code = 61 U/L 34-122 0123055034) ALTv (test code = 21 U/L 5-35 1742-6) AST(SGOT) (test code 28 U/L 13-40 = 0746232473) eGFR (test code = 110.0 mL/min/1.73m2 8161741498) DEE (test code = DEE) Association of Glomerular Filtration Rate (GFR) and Staging of Kidney Disease* + + +- +| GFR (mL/min/1.73 m2) ?| With Kidney Damage ?| ?Without Kidney Damage+ ------+ ----+ ------+| ?>90 ?| ?Stage one ?| ? Normal ?+ -+ + -+| ?60-89 ?| ?Stage two ?| ? Decreased GFR ? + + +- +| ?30-59 ?| ?Stage three ?| ? Stage three ? + + +- +| ?15-29 ?| ?Stage four ? | ? Stage four ?+ -+ + -+| ?<15 (or dialysis) ? ?| ?Stage five ? | ? Stage five ?+ -+ + -+ *Each stage assumes the associated GFR level has been in effect for at least three months. ?Stages 1 to 5, with or without kidney disease, indicate chronic kidney disease. Notes: Determination of stages one and two (with eGFR >59mL/min/1.73 m2) requires estimation of kidney damage for at least three months as defined by structural or functional abnormalities of the kidney, manifested by either:Pathological abnormalities or Markers of kidney damage (including abnormalities in the composition of the blood or urine or abnormalities in imaging tests). [facility] 18:34:46 Test Item Value Reference Range Interpretation Comments LIPASE (test code = 8274162249) 38 U/L 0-220 Lab Interpretation (test code = Normal 79393-4) [facility] WITH [id number] 18:21:04 Test Item Value Reference Range Interpretation Comments WBC (test code = 8.73 See_Comment [Automated 6690-2) message] The sy stem which generated this result transmitted reference range : 4.30 - 11.10 10*3/?L. The reference range was not used to interpret this result as normal/abnormal . RBC (test code = 4.73 See_Comment [Automated 789-8) message] The sy stem which generated this result transmitted reference range : 3.93 - 5.25 10*6/?L. The reference range was not used to interpret this result as normal/abnormal . HGB (test code = 12.0 g/dL 11.6-15.0 718-7) HCT (test code = 38.2 % 35.7-45.2 4544-3) MCV (test code = 80.8 fL 80.6-95.5 787-2) MCH (test code = 25.4 pg 25.9-32.8 L 785-6) MCHC (test code = 31.4 g/dL 31.6-35.1 L 786-4) RDW-SD (test code = 41.6 fL 39.0-49.9 12865-2) RDW-CV (test code = 14.3 % 12.0-15.5 788-0) PLT (test code = 262 See_Comment [Automated 777-3) message] The sy stem which generated this result transmitted reference range : 166 - 358 10*3/ ?L. The reference r adriana was not used to interpret this result as normal/abnormal . MPV (test code = 10.7 fL 9.5-12.9 68229-7) NRBC/100 WBC (test 0.0 See_Comment [Automat ed code = 4907452011) message] The system which generated this result transmitted reference range : 0.0 - 10.0 /100 WBCs. The refer ence range was not u sed to interpret th is result as normal/abnormal . NRBC x10^3 (test code See_Comment [Auto mated = 5154946395) message] The s ystem which generated this result transmitted reference range : 10*3/?L. The reference range was not used to interpret this result as normal/abnormal . GRAN MAT (NEUT) % 56.1 % (test code = 770-8) IMM GRAN % (test code 0.30 % = 1269375679) LYMPH % (test code = 36.0 % 736-9) MONO % (test code = 4.5 % 5905-5) EOS % (test code = 2.2 % 713-8) BASO % (test code = 0.9 % 706-2) GRAN MAT x10^3(ANC) 4.90 10*3/uL 1.88-7.09 (test code = 0430941910) IMM GRAN x10^3 (test 0.03 10*3/uL 0.00-0.06 code = 7953411669) LYMPH x10^3 (test code 3.14 10*3/uL 1.32-3.29 = 731-0) MONO x10^3 (test code 0.39 10*3/uL 0.33-0.92 = 742-7) EOS x10^3 (test code = 0.19 10*3/uL 0.03-0.39 711-2) BASO x10^3 (test code 0.08 10*3/uL 0.01-0.07 H = 704-7) Lab Interpretation Abnormal (test code = 86013-3) [facility]PO[facility] [id number] 17:54:00 Test Item Value Reference Range Interpretation Comments POCT PREG (test code = 1605) negative On board controls acceptable with C present Line (test code = 3574) Lab Interpretation (test code = Normal 00091-1) [facility]PT/[id number] 09:44:00 Test Item Value Reference Range Interpretation Comments prothrombin time (test code = 10.2 seconds 10.3-12.3 L prothrombin time) INR (test code = INR) < 0.94 [facility] [id number] 09:44:00 Test Item Value Reference Range Interpretation Comments partial thromboplastin time 25.4 seconds 22.5-37.0 (test code = partial thromboplastin time) [facility][id number] 09:44:00 Test Item Value Reference Range Interpretation Comments prothrombin time (test code = 10.2 seconds 10.3-12.3 L prothrombin time) INR (test code = INR) < 0.94 [facility] [id number] 09:44:00 Test Item Value Reference Range Interpretation Comments partial thromboplastin time 25.4 seconds 22.5-37.0 (test code = partial thromboplastin time) [facility] [id number] 09:42:00 Test Item Value Reference Range Interpretation Comments glucose (test code = glucose) 98 mg/dL 74-106 blood urea nitrogen (test code = 11 mg/dL 6-20 blood urea nitrogen) osmolality calculated,serum (test 281 mOsm/kg 280-300 code = osmolality calculated,serum) creatinine (test code = 0.79 mg/dL 0.50-0.90 creatinine) glomerular filtration rate (test > 60.00 code = glomerular filtration rate) BUN/creatinine ratio (test code = 13.9 12.0-20.0 BUN/creatinine ratio) sodium level (test code = sodium 141 mmol/L 135-145 level) potassium level (test code = 4.7 mmol/L 3.5-5.2 potassium level) chloride level (test code = 105 mmol/L 98-108 chloride level) CO2 (test code = CO2) 25 mmol/L 21-32 anion gap (test code = anion gap) 15.7 mEq/L 12.0-20.0 calcium level (test code = 9.7 mg/dL 8.6-10.0 calcium level) [facility] [id number] 09:42:00 Test Item Value Reference Range Interpretation Comments total protein (test code = total 7.0 g/dL 6.6-8.7 protein) albumin (test code = albumin) 4.7 g/dL 3.5-5.2 bilirubin,total (test code = 0.2 mg/dL 0.0-1.2 bilirubin,total) bilirubin,direct (test code = < 0.10 0.0-0.3 bilirubin,direct) AST/SGOT (test code = AST/SGOT) 13 U/L 15-32 L ALT/SGPT (test code = ALT/SGPT) 12 U/L 0-33 alkaline phosphatase, total (test 68 U/L 35-105 code = alkaline phosphatase, total) [id number]:00 Test Item Value Reference Range Interpretation Comments glucose (test code = glucose) 98 mg/dL 74-106 blood urea nitrogen (test code = 11 mg/dL 6-20 blood urea nitrogen) osmolality calculated,serum (test 281 mOsm/kg 280-300 code = osmolality calculated,serum) creatinine (test code = 0.79 mg/dL 0.50-0.90 creatinine) glomerular filtration rate (test > 60.00 code = glomerular filtration rate) BUN/creatinine ratio (test code = 13.9 12.0-20.0 BUN/creatinine ratio) sodium level (test code = sodium 141 mmol/L 135-145 level) potassium level (test code = 4.7 mmol/L 3.5-5.2 potassium level) chloride level (test code = 105 mmol/L 98-108 chloride level) CO2 (test code = CO2) 25 mmol/L 21-32 anion gap (test code = anion gap) 15.7 mEq/L 12.0-20.0 calcium level (test code = 9.7 mg/dL 8.6-10.0 calcium level) [id number] 09:42:00 Test Item Value Reference Range Interpretation Comments total protein (test code = total 7.0 g/dL 6.6-8.7 protein) albumin (test code = albumin) 4.7 g/dL 3.5-5.2 bilirubin,total (test code = 0.2 mg/dL 0.0-1.2 bilirubin,total) bilirubin,direct (test code = < 0.10 0.0-0.3 bilirubin,direct) AST/SGOT (test code = AST/SGOT) 13 U/L 15-32 L ALT/SGPT (test code = ALT/SGPT) 12 U/L 0-33 alkaline phosphatase, total (test 68 U/L 35-105 code = alkaline phosphatase, total) [facility] W Auto Differential panel - [id number] 09:26:00 Test Item Value Reference Range Interpretation Comments white blood count (test code = 4.7 K/uL 4.0-11.5 white blood count) red blood count (test code = red 5.04 M/uL 3.80-5.20 blood count) hemoglobin (test code = 12.7 g/dL 10.5-15.7 hemoglobin) hematocrit (test code = 41.4 % 34.0-50.0 hematocrit) mean corpuscular volume (test code 82.1 fL 86.0-100.0 L = mean corpuscular volume) mean corpuscular hemoglobin (test 25.2 pg 26.2-33.4 L code = mean corpuscular hemoglobin) mean corpuscular HGB conc (test 30.7 g/dL 30.0-34.0 code = mean corpuscular HGB conc) red cell distribution width (test 14.6 % 12.0-15.5 code = red cell distribution width) platelet count (test code = 187 K/uL 165-450 platelet count) mean platelet volume (test code = 10.6 fL 9.4-12.6 mean platelet volume) neutrophils % (test code = 47.6 % 44.4-80.1 neutrophils %) Ig% (test code = Ig%) 0.2 % 0.0-0.4 lymphocyte% (test code = 40.4 % 10.0-50.0 lymphocyte%) mono % (test code = mono %) 8.1 % 3.6-12.0 eos % (test code = eos %) 2.4 % 0.0-5.4 basophil % (test code = basophil 1.3 % 0.1-1.2 H %) absolute neutrophil count (test 2.23 K/uL 1.56-6.13 code = absolute neutrophil count) Ig# (test code = Ig#) 0.01 K/uL 0.00-0.03 lymph # (test code = lymph #) 1.89 K/uL 1.18-3.74 mono # (test code = mono #) 0.38 K/uL 0.24-0.86 eos # (test code = eos #) 0.11 K/uL 0.04-0.36 basophil # (test code = basophil 0.06 K/uL 0.01-0.08 #) NRBC% (test code = NRBC%) 0 /100 WBC 0-0.2 NRBC# (test code = NRBC#) 0 K/uL [facility] W Auto Differential panel - [id number] 09:26:00 Test Item Value Reference Range Interpretation Comments white blood count (test code = 4.7 K/uL 4.0-11.5 white blood count) red blood count (test code = red 5.04 M/uL 3.80-5.20 blood count) hemoglobin (test code = 12.7 g/dL 10.5-15.7 hemoglobin) hematocrit (test code = 41.4 % 34.0-50.0 hematocrit) mean corpuscular volume (test code 82.1 fL 86.0-100.0 L = mean corpuscular volume) mean corpuscular hemoglobin (test 25.2 pg 26.2-33.4 L code = mean corpuscular hemoglobin) mean corpuscular HGB conc (test 30.7 g/dL 30.0-34.0 code = mean corpuscular HGB conc) red cell distribution width (test 14.6 % 12.0-15.5 code = red cell distribution width) platelet count (test code = 187 K/uL 165-450 platelet count) mean platelet volume (test code = 10.6 fL 9.4-12.6 mean platelet volume) neutrophils % (test code = 47.6 % 44.4-80.1 neutrophils %) Ig% (test code = Ig%) 0.2 % 0.0-0.4 lymphocyte% (test code = 40.4 % 10.0-50.0 lymphocyte%) mono % (test code = mono %) 8.1 % 3.6-12.0 eos % (test code = eos %) 2.4 % 0.0-5.4 basophil % (test code = basophil 1.3 % 0.1-1.2 H %) absolute neutrophil count (test 2.23 K/uL 1.56-6.13 code = absolute neutrophil count) Ig# (test code = Ig#) 0.01 K/uL 0.00-0.03 lymph # (test code = lymph #) 1.89 K/uL 1.18-3.74 mono # (test code = mono #) 0.38 K/uL 0.24-0.86 eos # (test code = eos #) 0.11 K/uL 0.04-0.36 basophil # (test code = basophil 0.06 K/uL 0.01-0.08 #) NRBC% (test code = NRBC%) 0 /100 WBC 0-0.2 NRBC# (test code = NRBC#) 0 K/uL [facility] B12 folate [id number] 17:28:00 Test Item Value Reference Range Interpretation Comments vitamin B12 (test code = vitamin 694.7 pg/mL 211-946 B12) folate (test code = folate) 6.69 NG/mL 4.78-24.2 [facility] [id number] 17:28:00 Test Item Value Reference Range Interpretation Comments vitamin B12 (test code = vitamin 694.7 pg/mL 211-946 B12) folate (test code = folate) 6.69 NG/mL 4.78-24.2 [facility] 17:08:00 Test Item Value Reference Range Interpretation Comments lipase (test code = lipase) 18 U/L 13-60 [facility] 17:08:00 Test Item Value Reference Range Interpretation Comments ferritin (test code = ferritin) < 28.5 13-150 [facility]TIBC [id number] 17:08:00 Test Item Value Reference Range Interpretation Comments iron (fe) (test code = iron (fe)) 27 ug/dL 37-145 L total iron binding capacity (test 301 ug/dL 260-445 code = total iron binding capacity) % saturation (test code = % 9 % 12-45 L saturation) [facility] 17:08:00 Test Item Value Reference Range Interpretation Comments lipase (test code = lipase) 18 U/L 13-60 [facility] 17:08:00 Test Item Value Reference Range Interpretation Comments ferritin (test code = ferritin) < 28.5 13-150 [facility]BC [id number] 17:08:00 Test Item Value Reference Range Interpretation Comments iron (fe) (test code = iron (fe)) 27 ug/dL 37-145 L total iron binding capacity (test 301 ug/dL 260-445 code = total iron binding capacity) % saturation (test code = % 9 % 12-45 L saturation) [facility] CenterAmylase [Enzymatic activity/volume] in Serum or Plasma 2022-06-04 00:00:00 Test Item Value Reference Range Interpretation Comments amylase level (test code = amylase 61 U/L 28-100 level) [facility]Am[facility] [Enzymatic activity/volume] in Serum or Plasma 2022-06-04 00:00:00 Test Item Value Reference Range Interpretation Comments amylase level (test code = amylase 61 U/L 28-100 level) [facility]covid [id number] 22:40:00 Test Item Value Reference Range Interpretation Comments RSV xpress (test code = RSV RSV negative xpress) covid-19 inhouse (test code = covid-19 inhouse) flu A (test code = flu A) flu A negative flu B (test code = flu B) flu B negative [facility] [id number] 22:40:00 Test Item Value Reference Range Interpretation Comments RSV xpress (test code = RSV RSV negative xpress) covid-19 inhouse (test code = covid-19 inhouse) flu A (test code = flu A) flu A negative flu B (test code = flu B) flu B negative [facility] A [id number] 22:25:00 Test Item Value Reference Range Interpretation Comments strep A xpress (test strep A not detected code = strep A xpress) [facility] A [id number] 22:25:00 Test Item Value Reference Range Interpretation Comments strep A xpress (test strep A not detected code = strep A xpress) [facility] CenterInfluenza virus A and B and SARS-CoV+SARS-CoV-2 (COVID- 19) Ag panel - Upper respiratory specimen by Rapid [id number] 14:23:00 Test Item Value Reference Range Interpretation Comments RAPID SARS COV (test code = RAPID negative SARS COV) RAPID FLU A (test code = RAPID FLU negative A) RAPID FLU B (test code = RAPID FLU negative B) [facility] CenterIn[facility] A and B and SARS-CoV+SARS-CoV-2 (COVID- 19) Ag panel - Upper respiratory specimen by Rapid [id number] 14:23:00 Test Item Value Reference Range Interpretation Comments RAPID SARS COV (test code = RAPID negative SARS COV) RAPID FLU A (test code = RAPID FLU negative A) RAPID FLU B (test code = RAPID FLU negative B) [facility] strep group A, [id number] 12:10:54 Test Item Value Reference Range Interpretation Comments Strep Result (test code = Strep positive Result) [facility] strep group A, [id number] 12:10:54 Test Item Value Reference Range Interpretation Comments Strep Result (test code = Strep positive Result) [facility] strep group A, [id number] 12:10:54 Test Item Value Reference Range Interpretation Comments Strep Result (test code = Strep positive Result) [facility] and B and SARS-CoV+SARS-CoV-2 (COVID- 19) Ag panel - Upper respiratory specimen by Rapid [id number] 16:31:00 Test Item Value Reference Range Interpretation Comments RAPID SARS COV (test code = RAPID negative SARS COV) RAPID FLU A (test code = RAPID FLU negative A) RAPID FLU B (test code = RAPID FLU negative B) [facility] Centerp[facility], [id number] 16:06:15 Test Item Value Reference Range Interpretation Comments Test (test code = negative Test) [facility], [id number] 16:06:15 Test Item Value Reference Range Interpretation Comments Test (test code = negative Test) [facility] CenterUrinal[facility] W Reflex Culture panel - Urine 2021-10-05 07:44:00 Test Item Value Reference Range Interpretation Comments Color of Urine by Auto (test code lt. yellow = 17807-6) Appearance of Urine (test code = SL cloudy clear 5767-9) Glucose [Mass/volume] in Urine negative negative (test code = 2350-7) bilirubin, urine (test code = negative negative bilirubin, urine) ketone, urine (test code = negative negative ketone, urine) Specific gravity of Urine by 1.015 1.003-1.030 Automated test strip (test code = 66603-1) Hemoglobin [Presence] in Urine by small negative H Test strip (test code = 5794-3) pH of Urine (test code = 2756-5) 6.500 5-9 protein urine (UA) (test code = negative negative protein urine (UA)) Urobilinogen [Presence] in Urine 0.2 E.U./dL 0.2-1.0 (test code = 67605-1) Nitrite [Presence] in Urine by positive negative Test strip (test code = 5802-4) urine leukocyte esterase (test =1 negative H code = urine leukocyte esterase) Erythrocytes [Presence] in Urine =4-6 0-5 H (test code = 61627-9) WBC, urine (test code = WBC, =5-9 0-5 H urine) bacteria, urine (test code = full field none detect H bacteria, urine) Casts [#/area] in Urine sediment =2-5 none detect by Automated count (test code = 42343-4) urine culture added? (test code = yes urine culture added?) squamous epithelial cell urine =6-10 0-5 (test code = squamous epithelial cell urine) mucus, urine (test code = mucus, =1 none detect urine) [facility] W Auto Differential panel - [id number] 07:44:00 Test Item Value Reference Range Interpretation Comments white blood count (test code = 6.7 K/uL 4.0-11.5 white blood count) red blood count (test code = red 4.89 M/uL 3.80-5.20 blood count) hemoglobin (test code = 12.5 g/dL 10.5-15.7 hemoglobin) hematocrit (test code = 40.6 % 34.0-50.0 hematocrit) MCV [Entitic volume] (test code = 83.0 fL 86.0-100.0 L 24038-5) mean corpuscular hemoglobin (test 25.6 pg 26.2-33.4 [...] 44.4-80.1 leukocytes in Blood (test code = 68754-5) Immature granulocytes [#/volume] 0.01 K/uL 0.00-0.03 in Blood (test code = 00202-2) lymphocyte% (test code = 38.8 % 10.0-50.0 lymphocyte%) mono % (test code = mono %) 6.9 % 3.6-12.0 eos % (test code = eos %) 1.5 % 0.0-5.4 basophil % (test code = basophil 1.1 % 0.1-1.2 %) Band form neutrophils [#/volume] 3.43 K/uL 1.56-6.13 in Blood (test code = 94651-8) Lymphocytes [#/volume] in Specimen 2.58 K/uL 1.18-3.74 by Automated count (test code = 65835-9) mono # (test code = mono #) 0.46 K/uL 0.24-0.86 eos # (test code = eos #) 0.10 K/uL 0.04-0.36 basophil # (test code = basophil 0.07 K/uL 0.01-0.08 #) NRBC% (test code = NRBC%) 0 /100 WBC 0-0.2 NRBC# (test code = NRBC#) 0 K/uL [facility] CenterComprehensive [facility] 2000 panel - Serum [...] Serum or Plasma (test code = 6768-6) [facility] CenterLipid 1996 panel - Serum or [id number] 07:44:00 Test Item Value Reference Range Interpretation Comments cholesterol level (test code = 145 mg/dL 150-200 L cholesterol level) triglycerides level (test code = 57 mg/dL <150 triglycerides level) HDL cholesterol (test code = HDL 66 mg/dL >65 cholesterol) LDL cholesterol direct (test code = 69 mg/dL <100 LDL cholesterol direct) cholesterol risk ratio (test code = 2.196 cholesterol risk ratio) [facility] CenterUr[facility] W Reflex Culture panel - Urine 2021-10-05 07:44:00 Test Item Value Reference Range Interpretation Comments Color of Urine by Auto (test code lt. yellow = 41643-3) Appearance of Urine (test code = SL cloudy clear 5767-9) Glucose [Mass/volume] in Urine negative negative (test code = 2350-7) bilirubin, urine (test code = negative negative bilirubin, urine) ketone, urine (test code = negative negative ketone, urine) Specific gravity of Urine by 1.015 1.003-1.030 Automated test strip (test code = 10572-7) Hemoglobin [Presence] in Urine by small negative H Test strip (test code = 5794-3) pH of Urine (test code = 2756-5) 6.500 5-9 protein urine (UA) (test code = negative negative protein urine (UA)) Urobilinogen [Presence] in Urine 0.2 E.U./dL 0.2-1.0 (test code = 57599-3) Nitrite [Presence] in Urine by positive negative Test strip (test code = 5802-4) urine leukocyte esterase (test =1 negative H code = urine leukocyte esterase) Erythrocytes [Presence] in Urine =4-6 0-5 H (test code = 06290-3) WBC, urine (test code = WBC, =5-9 0-5 H urine) bacteria, urine (test code = full field none detect H bacteria, urine) Casts [#/area] in Urine sediment =2-5 none detect by Automated count (test code = 43899-9) urine culture added? (test code = yes urine culture added?) squamous epithelial cell urine =6-10 0-5 (test code = squamous epithelial cell urine) mucus, urine (test code = mucus, =1 none detect urine) [facility] W Auto Differential panel - [id number] 07:44:00 Test Item Value Reference Range Interpretation Comments white blood count (test code = 6.7 K/uL 4.0-11.5 white blood count) red blood count (test code = red 4.89 M/uL 3.80-5.20 blood count) hemoglobin (test code = 12.5 g/dL 10.5-15.7 hemoglobin) hematocrit (test code = 40.6 % 34.0-50.0 hematocrit) MCV [Entitic volume] (test code = 83.0 fL 86.0-100.0 L 56318-4) mean corpuscular hemoglobin (test 25.6 pg 26.2-33.4 [...] 44.4-80.1 leukocytes in Blood (test code = 77971-0) Immature granulocytes [#/volume] 0.01 K/uL 0.00-0.03 in Blood (test code = 03563-0) lymphocyte% (test code = 38.8 % 10.0-50.0 lymphocyte%) mono % (test code = mono %) 6.9 % 3.6-12.0 eos % (test code = eos %) 1.5 % 0.0-5.4 basophil % (test code = basophil 1.1 % 0.1-1.2 %) Band form neutrophils [#/volume] 3.43 K/uL 1.56-6.13 in Blood (test code = 32819-2) Lymphocytes [#/volume] in Specimen 2.58 K/uL 1.18-3.74 by Automated count (test code = 59898-5) mono # (test code = mono #) 0.46 K/uL 0.24-0.86 eos # (test code = eos #) 0.10 K/uL 0.04-0.36 basophil # (test code = basophil 0.07 K/uL 0.01-0.08 #) NRBC% (test code = NRBC%) 0 /100 WBC 0-0.2 NRBC# (test code = NRBC#) 0 K/uL [facility]Com[facility] 2000 [facility] - Serum [...] Serum or Plasma (test code = 6768-6) [facility] CenterLipid 1996 panel - Serum or [id number] 07:44:00 Test Item Value Reference Range Interpretation Comments cholesterol level (test code = 145 mg/dL 150-200 L cholesterol level) triglycerides level (test code = 57 mg/dL <150 triglycerides level) HDL cholesterol (test code = HDL 66 mg/dL >65 cholesterol) LDL cholesterol direct (test code = 69 mg/dL <100 LDL cholesterol direct) cholesterol risk ratio (test code = 2.196 cholesterol risk ratio) [facility] CenterBacteria identified in Urine by [id number] 07:44:00[facility], [id number] 07:44:00 Test Item Value Reference Range Interpretation [...] Minimum inhibitory concentration (GUSTAVO) (test code = 46275-6) cefTAZidime [Susceptibility] by <=2 Minimum inhibitory concentration (GUSTAVO) (test code = 133-9) cefTRIAXone [Susceptibility] by <=1 Minimum inhibitory concentration (GUSTAVO) (test code = 141-2) Ciprofloxacin [Susceptibility] by <=0.25 Minimum inhibitory concentration (GUSTAVO) (test code = 185-9) Ampicillin+Sulbactam =8/4 [Susceptibility] by Minimum inhibitory concentration (GUSTAVO) (test code = 32-3) Ertapenem [Susceptibility] by <=0.25 Minimum inhibitory concentration (GUSTAVO) (test code = 68893-4) Aztreonam [Susceptibility] by <=2 Minimum inhibitory concentration (GUSTAVO) (test code = 44-8) Cefepime [Susceptibility] by Minimum <=1 inhibitory concentration (GUSTAVO) (test code = 6644-9) Meropenem [Susceptibility] by <=0.5 Minimum inhibitory concentration (GUSTAVO) (test code = 6652-2) Moxifloxacin [Susceptibility] by <=1 Minimum inhibitory concentration (GUSTAVO) (test code = 03614-2) Amikacin [Susceptibility] by Minimum <=8 inhibitory concentration (GUSTAVO) (test code = 12-5) Piperacillin+Tazobactam =4/4 [Susceptibility] by Minimum inhibitory concentration (GUSTAVO) (test code = 412-7) Ceftaroline [Susceptibility] by <=0.25 Minimum inhibitory concentration (GUSTAVO) (test code = 60070-5) Tigecycline [Susceptibility] by 2 ug/mL Minimum inhibitory concentration (GUSTAVO) (test code = 86711-3) [facility] CenterErythrocyte sedimentation [id number] 00:00:00 Test Item Value Reference Range Interpretation Comments erythrocyte sedimentation rate (test 8 mm/HR 0.00-20 code = erythrocyte sedimentation rate) [facility] CenterHemoglobin A1c [Mass/volume] in [id number] 00:00:00 Test Item Value Reference Range Interpretation Comments Hemoglobin A1c [Mass/volume] in Blood 5.4 % 4.0-6.0 (test code = 54894-5) [facility] CenterThyrotropin [Units/volume] in Serum or [id number] 00:00:00 Test Item Value Reference Range Interpretation Comments Thyrotropin [Units/volume] in 0.94 uIU/mL 0.36-3.74 Serum or Plasma (test code = 3016-3) [facility] CenterThyroxine (T4) [Mass/volume] in Serum or [id number] 00:00:00 Test Item Value Reference Range Interpretation Comments T4 (test code = T4) 7.1 ug/dL 4.5-11.7 [facility] CenterErythrocyte sedimentation [id number] 00:00:00 Test Item Value Reference Range Interpretation Comments erythrocyte sedimentation rate (test 8 mm/HR 0.00-20 code = erythrocyte sedimentation rate) [facility] CenterHemoglobin A1c/Hemoglobin.total in [id number] 00:00:00 Test Item Value Reference Range Interpretation Comments Hemoglobin A1c [Mass/volume] in Blood 5.4 % 4.0-6.0 (test code = 19815-0) [facility] CenterThyrotropin [Units/volume] in Serum or [id number] 00:00:00 Test Item Value Reference Range Interpretation Comments Thyrotropin [Units/volume] in 0.94 uIU/mL 0.36-3.74 Serum or Plasma (test code = 3016-3) [facility] CenterThyroxine (T4) [Mass/volume] in Serum or [id number] 00:00:00 Test Item Value Reference Range Interpretation Comments T4 (test code = T4) 7.1 ug/dL 4.5-11.7 [facility] [id number] 17:41:17 Test Item Value Reference Range Interpretation Comments Strep Result (test code = Strep negative Result) [facility], [id number] 17:41:17 Test Item Value Reference Range Interpretation Comments Strep Result (test code = Strep negative Result) [facility] CenterInfluenza virus A and B and SARS-CoV+SARS-CoV-2 (COVID- 19) Ag panel - Upper respiratory specimen by Rapid [id number] 16:52:00 Test Item Value Reference Range Interpretation Comments RAPID SARS COV (test code = RAPID negative SARS COV) RAPID FLU A (test code = RAPID FLU negative A) RAPID FLU B (test code = RAPID FLU negative B) [facility] CenterInfluenza virus A and B and SARS-CoV+SARS-CoV-2 (COVID- 19) Ag panel - Upper respiratory specimen by Rapid [id number] 16:52:00 Test Item Value Reference Range Interpretation Comments RAPID SARS COV (test code = RAPID negative SARS COV) RAPID FLU A (test code = RAPID FLU negative A) RAPID FLU B (test code = RAPID FLU negative B) [facility] W Auto Differential panel - [id number] 10:41:00 Test Item Value Reference Range Interpretation Comments white blood count (test code = 8.4 K/uL 4.0-11.5 white blood count) red blood count (test code = red 5.53 M/uL 3.80-5.20 H blood count) hemoglobin (test code = 14.3 g/dL 10.5-15.7 hemoglobin) hematocrit (test code = 45.4 % 34.0-50.0 hematocrit) MCV [Entitic volume] (test code = 82.1 fL 86.0-100.0 L 41191-4) mean corpuscular hemoglobin (test 25.9 pg 26.2-33.4 [...] 44.4-80.1 leukocytes in Blood (test code = 12650-9) Immature granulocytes [#/volume] 0.02 K/uL 0.00-0.03 in Blood (test code = 33262-2) lymphocyte% (test code = 38.7 % 10.0-50.0 lymphocyte%) mono % (test code = mono %) 5.3 % 3.6-12.0 eos % (test code = eos %) 1.4 % 0.0-5.4 Basophils/100 leukocytes in 0.6 % 0.1-1.2 Specimen (test code = 85035-7) Band form neutrophils [#/volume] 4.53 K/uL 1.56-6.13 in Blood (test code = 43089-4) Lymphocytes [#/volume] in Specimen 3.27 K/uL 1.18-3.74 by Automated count (test code = 18893-7) mono # (test code = mono #) 0.45 K/uL 0.24-0.86 eos # (test code = eos #) 0.12 K/uL 0.04-0.36 basophil # (test code = basophil 0.05 K/uL 0.01-0.08 #) NRBC% (test code = NRBC%) 0 /100 WBC 0-0.2 NRBC# (test code = NRBC#) 0 K/uL [facility] CenterComprehensive [facility] 2000 panel - Serum [...] Serum or Plasma (test code = 6768-6) [facility] CenterPT/[id number] 10:41:00 Test Item Value Reference Range Interpretation Comments prothrombin time (test code = 10.0 seconds 10.3-12.3 L prothrombin time) INR in Blood by Coagulation <0.94 assay (test code = 78940-9) [facility] CenterDifferential panel, method unspecified - [id number] 00:00:00NeutrophilsBandLymphocyteAtypical LymphMonocyteEosinophilBasophilMyelocyteBlastsAbs Neutrophil Count(Man)Abs Lymph Count (Man)Abs Monocyte Count (Man)Abs Eosinophil Count (Man)Abs Basophil Count (Man)Platelet EstimatePlatelet MorphologyAnisocytosisMacrocytosisStomatocyteToxic GranulationMataField Memorial Community HospitalChoriogonadotropin ( test) [Presence] in Serum or [id number] 00:00:00 Test Item Value Reference Range Interpretation Comments Choriogonadotropin.beta subunit negative neg ( test) [Presence] in Serum or Plasma (test code = 2110-5) [facility] Centerpartial thromboplastin [id number] 00:00:00 Test Item Value Reference Range Interpretation Comments INR in Blood by Coagulation 27.6 seconds 22.5-37.0 assay (test code = 13708-6) [facility] CenterInfluenza virus A and B and SARS-CoV+SARS-CoV-2 (COVID- 19) Ag panel - Upper respiratory specimen by Rapid [id number] 14:30:06 Test Item Value Reference Range Interpretation Comments RAPID SARS COV (test code = RAPID negative SARS COV) RAPID FLU A (test code = RAPID FLU negative A) RAPID FLU B (test code = RAPID FLU negative B) [facility] CenterInfluenza virus A and B and SARS-CoV+SARS-CoV-2 (COVID- 19) Ag panel - Upper respiratory specimen by Rapid [id number] 14:30:06 Test Item Value Reference Range Interpretation Comments RAPID SARS COV (test code = RAPID negative SARS COV) RAPID FLU A (test code = RAPID FLU negative A) RAPID FLU B (test code = RAPID FLU negative B) [facility] CenterInfluenza virus A and B and SARS-CoV+SARS-CoV-2 (COVID- 19) Ag panel - Upper respiratory specimen by Rapid [id number] 14:30:06 Test Item Value Reference Range Interpretation Comments RAPID SARS COV (test code = RAPID negative SARS COV) RAPID FLU A (test code = RAPID FLU negative A) RAPID FLU B (test code = RAPID FLU negative B) [facility] Centerrap[facility], [id number] 14:29:58 Test Item Value Reference Range Interpretation Comments Strep Result (test code = Strep positive Result) [facility], [id number] 14:29:58 Test Item Value Reference Range Interpretation Comments Strep Result (test code = Strep positive Result) [facility], [id number] 14:29:58 Test Item Value Reference Range Interpretation Comments Strep Result (test code = Strep positive Result) [facility], [id number] 15:38:01 Test Item Value Reference Range Interpretation Comments Strep Result (test code = Strep negative Result) [facility], [id number] 15:38:01 Test Item Value Reference Range Interpretation Comments Strep Result (test code = Strep negative Result) [facility] [id number] 15:38:01 Test Item Value Reference Range Interpretation Comments Strep Result (test code = Strep negative Result) [facility] [id number] 15:38:01 Test Item Value Reference Range Interpretation Comments Strep Result (test code = Strep negative Result) [facility] [id number] 15:56:00 Test Item Value Reference Range Interpretation Comments Strep Result (test code = Strep positive Result) [facility] [id number] 15:56:00 Test Item Value Reference Range Interpretation Comments Strep Result (test code = Strep positive Result) [facility] (dipstick) panel - [id number] 15:37:27 Test Item Value Reference Range Interpretation Comments Leukocytes (test code = Leukocytes) Trace Nitrite (test code = Nitrite) negative Urobilinogen (test code = 1 Urobilinogen) Protein (test code = Protein) Negative pH (test code = pH) 7.0 Blood (test code = Blood) Negative Specific Rolla (test code = 1.020 Specific Rolla) Ketone (test code = Ketone) Negative Bilirubin (test code = Bilirubin) Negative Glucose (test code = Glucose) Negative Appearance (test code = Appearance) Clear Color (test code = Color) Yellow [facility] W Auto Differential panel - [id number] 12:16:00 Test Item Value Reference Range Interpretation Comments white blood count (test code = 7.3 K/uL 4.0-11.5 white blood count) red blood count (test code = red 5.06 M/uL 3.80-5.20 blood count) hemoglobin (test code = 12.5 g/dL 10.5-15.7 hemoglobin) hematocrit (test code = 41.3 % 34.0-50.0 hematocrit) Erythrocyte mean corpuscular 81.6 fL 86-100 L volume [Entitic volume] (test code = 13321-2) mean corpuscular hemoglobin (test 24.7 pg 26.2-33.4 [...] 44.4-80.1 leukocytes in Blood (test code = 13771-7) Granulocytes Immature [#/volume] 0.0 K/uL 0.0-0.03 in Blood (test code = 01650-8) lymphocyte% (test code = 37.9 % 10.0-50.0 lymphocyte%) mono % (test code = mono %) 7.4 % 3.6-12.0 eos % (test code = eos %) 3.0 % 0.0-5.4 Basophils/100 leukocytes in 0.5 % 0.1-1.2 Unspecified specimen (test code = 69552-7) Neutrophils.band form [#/volume] 3.73 K/uL 1.56-6.13 in Blood (test code = 72017-7) Lymphocytes [#/volume] in 2.8 K/uL 1.18-3.74 Unspecified specimen by Automated count (test code = 63405-1) mono # (test code = mono #) 0.54 K/uL 0.24-0.86 eos # (test code = eos #) 0.22 K/uL 0.04-0.36 basophil # (test code = basophil 0.04 K/uL 0.01-0.08 #) NRBC% (test code = NRBC%) 0 /100 WBC 0-0.2 NRBC# (test code = NRBC#) 0 K/uL [facility], [id number] 12:16:00 NeutrophilsLymphocyteAtypical LymphMonocyteEosinophilBasophilPlatelet EstimateDifferential comment-PMaSinging River GulfportChoriogonadotropin.beta subunit [Units/volume] in Serum or [id number] 12:16:00 Test Item Value Reference Range Interpretation Comments HCG quantitative (test code = HCG <0.1 0-5 quantitative) [facility]dipstick[facility] - [id number] 11:31:00 Test Item Value Reference Range Interpretation Comments Leukocytes (test code = Leukocytes) Large Nitrite (test code = Nitrite) negative Urobilinogen (test code = .2 Urobilinogen) Protein (test code = Protein) 30 pH (test code = pH) 8.0 Blood (test code = Blood) Small Specific Rolla (test code = 1.020 Specific Rolla) Ketone (test code = Ketone) Negative Bilirubin (test code = Bilirubin) Negative Glucose (test code = Glucose) Negative Appearance (test code = Appearance) Clear Color (test code = Color) Yellow [facility] CenterUr[facility] macro (dipstick) panel - [id number] 11:31:00 Test Item Value Reference Range Interpretation Comments Leukocytes (test code = Leukocytes) Large Nitrite (test code = Nitrite) negative Urobilinogen (test code = .2 Urobilinogen) Protein (test code = Protein) 30 pH (test code = pH) 8.0 Blood (test code = Blood) Small Specific Rolla (test code = 1.020 Specific Rolla) Ketone (test code = Ketone) Negative Bilirubin (test code = Bilirubin) Negative Glucose (test code = Glucose) Negative Appearance (test code = Appearance) Clear Color (test code = Color) Yellow [facility] (dipstick) panel - [id number] 11:31:00 Test Item Value Reference Range Interpretation Comments Leukocytes (test code = Leukocytes) Large Nitrite (test code = Nitrite) negative Urobilinogen (test code = .2 Urobilinogen) Protein (test code = Protein) 30 pH (test code = pH) 8.0 Blood (test code = Blood) Small Specific Rolla (test code = 1.020 Specific Rolla) Ketone (test code = Ketone) Negative Bilirubin (test code = Bilirubin) Negative Glucose (test code = Glucose) Negative Appearance (test code = Appearance) Clear Color (test code = Color) Yellow [facility] CenterCBC W Auto Differential panel - [id number] 05:43:00 Test Item Value Reference Range Interpretation [...] L volume [Entitic volume] (test code = 92238-8) mean corpuscular hemoglobin (test 25.3 pg 26.2-33.4 [...] 44.4-80.1 leukocytes in Blood (test code = 22119-5) Granulocytes Immature [#/volume] 0.1 K/uL 0.0-0.03 H in Blood (test code = 44763-7) lymphocyte% (test code = 26.4 % 10.0-50.0 lymphocyte%) mono % (test code = mono %) 6.4 % 3.6-12.0 eos % (test code = eos %) 0.7 % 0.0-5.4 Basophils/100 leukocytes in 0.2 % 0.1-1.2 Unspecified specimen (test code = 52125-4) Neutrophils.band form [#/volume] 8.32 K/uL 1.56-6.13 H in Blood (test code = 64803-5) Lymphocytes [#/volume] in 3.3 K/uL 1.18-3.74 Unspecified specimen by Automated count (test code = 00843-0) mono # (test code = mono #) 0.81 K/uL 0.24-0.86 eos # (test code = eos #) 0.09 K/uL 0.04-0.36 basophil # (test code = basophil 0.03 K/uL 0.01-0.08 #) NRBC% (test code = NRBC%) 0 /100 WBC 0-0.2 NRBC# (test code = NRBC#) 0 K/uL [facility] W Auto Differential panel - [id number] 05:43:00 Test Item Value Reference Range Interpretation [...] L volume [Entitic volume] (test code = 56585-8) mean corpuscular hemoglobin (test 25.3 pg 26.2-33.4 [...] 44.4-80.1 leukocytes in Blood (test code = 38081-4) Granulocytes Immature [#/volume] 0.1 K/uL 0.0-0.03 H in Blood (test code = 88052-1) lymphocyte% (test code = 26.4 % 10.0-50.0 lymphocyte%) mono % (test code = mono %) 6.4 % 3.6-12.0 eos % (test code = eos %) 0.7 % 0.0-5.4 Basophils/100 leukocytes in 0.2 % 0.1-1.2 Unspecified specimen (test code = 04715-8) Neutrophils.band form [#/volume] 8.32 K/uL 1.56-6.13 H in Blood (test code = 83205-5) Lymphocytes [#/volume] in 3.3 K/uL 1.18-3.74 Unspecified specimen by Automated count (test code = 92493-6) mono # (test code = mono #) 0.81 K/uL 0.24-0.86 eos # (test code = eos #) 0.09 K/uL 0.04-0.36 basophil # (test code = basophil 0.03 K/uL 0.01-0.08 #) NRBC% (test code = NRBC%) 0 /100 WBC 0-0.2 NRBC# (test code = NRBC#) 0 K/uL [facility] W Auto Differential panel - [id number] 04:53:00 Test Item Value Reference Range Interpretation Comments white blood count (test code = 9.5 K/uL 4.0-11.5 white blood count) red blood count (test code = red 3.83 M/uL 3.80-5.20 blood count) hemoglobin (test code = 9.7 g/dL 10.5-15.7 L hemoglobin) hematocrit (test code = 31.4 % 34.0-50.0 L hematocrit) Erythrocyte mean corpuscular 82.0 fL 86-100 L volume [Entitic volume] (test code = 77650-0) mean corpuscular hemoglobin (test 25.3 pg 26.2-33.4 [...] 44.4-80.1 leukocytes in Blood (test code = 34740-1) Granulocytes Immature [#/volume] 0.1 K/uL 0.0-0.03 H in Blood (test code = 65062-2) lymphocyte% (test code = 30.9 % 10.0-50.0 lymphocyte%) mono % (test code = mono %) 7.2 % 3.6-12.0 eos % (test code = eos %) 0.3 % 0.0-5.4 Basophils/100 leukocytes in 0.2 % 0.1-1.2 Unspecified specimen (test code = 84913-4) Neutrophils.band form [#/volume] 5.77 K/uL 1.56-6.13 in Blood (test code = 75607-2) Lymphocytes [#/volume] in 2.9 K/uL 1.18-3.74 Unspecified specimen by Automated count (test code = 89178-2) mono # (test code = mono #) 0.68 K/uL 0.24-0.86 eos # (test code = eos #) 0.03 K/uL 0.04-0.36 L basophil # (test code = basophil 0.02 K/uL 0.01-0.08 #) NRBC% (test code = NRBC%) 0 /100 WBC 0-0.2 NRBC# (test code = NRBC#) 0 K/uL [facility] CenterReagin Ab [Presence] in Serum by [id number] 04:53:00 Test Item Value Reference Range Interpretation Comments Reagin Ab [Presence] in Serum by nonreactive nonreactive RPR (test code = 51194-0) [facility] CenterHepatitis B virus surface Ag [Presence] in Serum 2019-04-30 04:53:00 Test Item Value Reference Range Interpretation Comments .hepatitis B surface antigen (test negative negative code = .hepatitis B surface antigen) [facility] W Auto Differential panel - [id number] 04:53:00 Test Item Value Reference Range Interpretation Comments white blood count (test code = 9.5 K/uL 4.0-11.5 white blood count) red blood count (test code = red 3.83 M/uL 3.80-5.20 blood count) hemoglobin (test code = 9.7 g/dL 10.5-15.7 L hemoglobin) hematocrit (test code = 31.4 % 34.0-50.0 L hematocrit) Erythrocyte mean corpuscular 82.0 fL 86-100 L volume [Entitic volume] (test code = 56959-3) mean corpuscular hemoglobin (test 25.3 pg 26.2-33.4 [...] 44.4-80.1 leukocytes in Blood (test code = 48596-1) Granulocytes Immature [#/volume] 0.1 K/uL 0.0-0.03 H in Blood (test code = 54976-8) lymphocyte% (test code = 30.9 % 10.0-50.0 lymphocyte%) mono % (test code = mono %) 7.2 % 3.6-12.0 eos % (test code = eos %) 0.3 % 0.0-5.4 Basophils/100 leukocytes in 0.2 % 0.1-1.2 Unspecified specimen (test code = 37113-0) Neutrophils.band form [#/volume] 5.77 K/uL 1.56-6.13 in Blood (test code = 45381-6) Lymphocytes [#/volume] in 2.9 K/uL 1.18-3.74 Unspecified specimen by Automated count (test code = 26034-8) mono # (test code = mono #) 0.68 K/uL 0.24-0.86 eos # (test code = eos #) 0.03 K/uL 0.04-0.36 L basophil # (test code = basophil 0.02 K/uL 0.01-0.08 #) NRBC% (test code = NRBC%) 0 /100 WBC 0-0.2 NRBC# (test code = NRBC#) 0 K/uL [facility] [Presence] in Serum by [id number] 04:53:00 Test Item Value Reference Range Interpretation Comments Reagin Ab [Presence] in Serum by nonreactive nonreactive RPR (test code = 55241-3) [facility] CenterHepatitis B virus surface Ag [Presence] in Serum 2019-04-30 04:53:00 Test Item Value Reference Range Interpretation Comments .hepatitis B surface antigen (test negative negative code = .hepatitis B surface antigen) [facility] CenterUrinalysis macro (dipstick) panel - [id number] 10:17:40 Test Item Value Reference Range Interpretation Comments Leukocytes (test code = Leukocytes) Trace Nitrite (test code = Nitrite) negative Urobilinogen (test code = .2 Urobilinogen) Protein (test code = Protein) Trace pH (test code = pH) 6.5 Blood (test code = Blood) Negative Specific Rolla (test code = 1.015 Specific Rolla) Ketone (test code = Ketone) Negative Bilirubin (test code = Bilirubin) Negative Glucose (test code = Glucose) Negative Appearance (test code = Appearance) Clear Color (test code = Color) Yellow [facility] CenterUrinalysis macro (dipstick) panel - [id number] 10:17:40 Test Item Value Reference Range Interpretation Comments Leukocytes (test code = Leukocytes) Trace Nitrite (test code = Nitrite) negative Urobilinogen (test code = .2 Urobilinogen) Protein (test code = Protein) Trace pH (test code = pH) 6.5 Blood (test code = Blood) Negative Specific Rolla (test code = 1.015 Specific Rolla) Ketone (test code = Ketone) Negative Bilirubin (test code = Bilirubin) Negative Glucose (test code = Glucose) Negative Appearance (test code = Appearance) Clear Color (test code = Color) Yellow [facility] CenterUr[facility] (dipstick) panel - [id number] 10:17:40 Test Item Value Reference Range Interpretation Comments Leukocytes (test code = Leukocytes) Trace Nitrite (test code = Nitrite) negative Urobilinogen (test code = .2 Urobilinogen) Protein (test code = Protein) Trace pH (test code = pH) 6.5 Blood (test code = Blood) Negative Specific Rolla (test code = 1.015 Specific Rolla) Ketone (test code = Ketone) Negative Bilirubin (test code = Bilirubin) Negative Glucose (test code = Glucose) Negative Appearance (test code = Appearance) Clear Color (test code = Color) Yellow [facility] Biophysical profile panel [id number] 10:06:43 Test Item Value Reference Range Interpretation Comments Amniotic Fluid Index (test code = 2 (14.5) Amniotic Fluid Index) Tone (test code = Tone) 2 Breathing (test code = 2 Breathing) Movement (test code = 2 Movement) Non-Stress Test (test code = 2 Non-Stress Test) [facility] Biophysical profile panel [id number] 10:06:43 Test Item Value Reference Range Interpretation Comments Amniotic Fluid Index (test code = 2 (14.5) Amniotic Fluid Index) Tone (test code = Tone) 2 Breathing (test code = 2 Breathing) Movement (test code = 2 Movement) Non-Stress Test (test code = 2 Non-Stress Test) [facility] Biophysical profile panel [id number] 10:06:43 Test Item Value Reference Range Interpretation Comments Amniotic Fluid Index (test code = 2 (14.5) Amniotic Fluid Index) Tone (test code = Tone) 2 Breathing (test code = 2 Breathing) Movement (test code = 2 Movement) Non-Stress Test (test code = 2 Non-Stress Test) [facility]dipstick[facility] - [id number] 11:37:00 Test Item Value Reference Range Interpretation Comments Leukocytes (test code = Leukocytes) Large Nitrite (test code = Nitrite) negative Urobilinogen (test code = 1 Urobilinogen) Protein (test code = Protein) Trace pH (test code = pH) 8.5 Blood (test code = Blood) Negative Specific Rolla (test code = 1.020 Specific Rolla) Ketone (test code = Ketone) Negative Bilirubin (test code = Bilirubin) Negative Glucose (test code = Glucose) Negative Appearance (test code = Appearance) Clear Color (test code = Color) Yellow [facility] CenterUrinalysis macro (dipstick) panel - [id number] 11:37:00 Test Item Value Reference Range Interpretation Comments Leukocytes (test code = Leukocytes) Large Nitrite (test code = Nitrite) negative Urobilinogen (test code = 1 Urobilinogen) Protein (test code = Protein) Trace pH (test code = pH) 8.5 Blood (test code = Blood) Negative Specific Rolla (test code = 1.020 Specific Rolla) Ketone (test code = Ketone) Negative Bilirubin (test code = Bilirubin) Negative Glucose (test code = Glucose) Negative Appearance (test code = Appearance) Clear Color (test code = Color) Yellow [facility] CenterUr[facility] (dipstick) panel - [id number] 11:37:00 Test Item Value Reference Range Interpretation Comments Leukocytes (test code = Leukocytes) Large Nitrite (test code = Nitrite) negative Urobilinogen (test code = 1 Urobilinogen) Protein (test code = Protein) Trace pH (test code = pH) 8.5 Blood (test code = Blood) Negative Specific Rolla (test code = 1.020 Specific Rolla) Ketone (test code = Ketone) Negative Bilirubin (test code = Bilirubin) Negative Glucose (test code = Glucose) Negative Appearance (test code = Appearance) Clear Color (test code = Color) Yellow [facility] CenterUr[facility]ysis macro (dipstick) panel - [id number] 11:37:00 Test Item Value Reference Range Interpretation Comments Leukocytes (test code = Leukocytes) Large Nitrite (test code = Nitrite) negative Urobilinogen (test code = 1 Urobilinogen) Protein (test code = Protein) Trace pH (test code = pH) 8.5 Blood (test code = Blood) Negative Specific Rolla (test code = 1.020 Specific Roll[place]) Ketone (test code = Ketone) Negative Bilirubin (test code = Bilirubin) Negative Glucose (test code = Glucose) Negative Appearance (test code = Appearance) Clear Color (test code = Color) Yellow [facility] CenterUr[facility] (dipstick) panel - [id number] 11:37:00 Test Item Value Reference Range Interpretation Comments Leukocytes (test code = Leukocytes) Large Nitrite (test code = Nitrite) negative Urobilinogen (test code = 1 Urobilinogen) Protein (test code = Protein) Trace pH (test code = pH) 8.5 Blood (test code = Blood) Negative Specific Rolla (test code = 1.020 Specific Roll[place]) Ketone (test code = Ketone) Negative Bilirubin (test code = Bilirubin) Negative Glucose (test code = Glucose) Negative Appearance (test code = Appearance) Clear Color (test code = Color) Yellow [facility] Biophysical profile panel [id number] 11:06:57 Test Item Value Reference Range Interpretation Comments Amniotic Fluid Index (test code = 2 (14.6) Amniotic Fluid Index) Tone (test code = Tone) 2 Breathing (test code = 2 Breathing) Movement (test code = 2 Movement) Non-Stress Test (test code = 2 Non-Stress Test) [facility] Biophysical profile panel [id number] 11:06:57 Test Item Value Reference Range Interpretation Comments Amniotic Fluid Index (test code = 2 (14.6) Amniotic Fluid Index) Tone (test code = Tone) 2 Breathing (test code = 2 Breathing) Movement (test code = 2 Movement) Non-Stress Test (test code = 2 Non-Stress Test) [facility] Biophysical profile panel [id number] 11:06:57 Test Item Value Reference Range Interpretation Comments Amniotic Fluid Index (test code = 2 (14.6) Amniotic Fluid Index) Tone (test code = Tone) 2 Breathing (test code = 2 Breathing) Movement (test code = 2 Movement) Non-Stress Test (test code = 2 Non-Stress Test) [facility] Biophysical profile panel [id number] 11:06:57 Test Item Value Reference Range Interpretation Comments Amniotic Fluid Index (test code = 2 (14.6) Amniotic Fluid Index) Tone (test code = Tone) 2 Breathing (test code = 2 Breathing) Movement (test code = 2 Movement) Non-Stress Test (test code = 2 Non-Stress Test) [facility] Center[facility] panel [id number] 11:06:57 Test Item Value Reference Range Interpretation Comments Amniotic Fluid Index (test code = 2 (14.6) Amniotic Fluid Index) Tone (test code = Tone) 2 Breathing (test code = 2 Breathing) Movement (test code = 2 Movement) Non-Stress Test (test code = 2 Non-Stress Test) [facility]Ur[facility] (dipstick) panel - [id number] 15:44:30 Test Item Value Reference Range Interpretation Comments Leukocytes (test code = Small Leukocytes) Nitrite (test code = Nitrite) negative Urobilinogen (test code = 2 Urobilinogen) Protein (test code = Protein) 30 pH (test code = pH) 8.0 Blood (test code = Blood) Negative Specific Rolla (test code = 1.020 Specific Rolla) Ketone (test code = Ketone) Negative Bilirubin (test code = Bilirubin) Small Glucose (test code = Glucose) Negative Appearance (test code = Clear Appearance) Color (test code = Color) Dark Yellow [facility]Ur[facility] (dipstick) panel - [id number] 15:44:30 Test Item Value Reference Range Interpretation Comments Leukocytes (test code = Small Leukocytes) Nitrite (test code = Nitrite) negative Urobilinogen (test code = 2 Urobilinogen) Protein (test code = Protein) 30 pH (test code = pH) 8.0 Blood (test code = Blood) Negative Specific Rolla (test code = 1.020 Specific [place]a) Ketone (test code = Ketone) Negative Bilirubin (test code = Bilirubin) Small Glucose (test code = Glucose) Negative Appearance (test code = Clear Appearance) Color (test code = Color) Dark Yellow [facility]Ur[facility] (dipstick) panel - [id number] 15:44:30 Test Item Value Reference Range Interpretation Comments Leukocytes (test code = Small Leukocytes) Nitrite (test code = Nitrite) negative Urobilinogen (test code = 2 Urobilinogen) Protein (test code = Protein) 30 pH (test code = pH) 8.0 Blood (test code = Blood) Negative Specific Rolla (test code = 1.020 Specific Rolla) Ketone (test code = Ketone) Negative Bilirubin (test code = Bilirubin) Small Glucose (test code = Glucose) Negative Appearance (test code = Clear Appearance) Color (test code = Color) Dark Yellow [facility] (dipstick) panel - [id number] 15:44:30 Test Item Value Reference Range Interpretation Comments Leukocytes (test code = Small Leukocytes) Nitrite (test code = Nitrite) negative Urobilinogen (test code = 2 Urobilinogen) Protein (test code = Protein) 30 pH (test code = pH) 8.0 Blood (test code = Blood) Negative Specific Rolla (test code = 1.020 Specific Rolla) Ketone (test code = Ketone) Negative Bilirubin (test code = Bilirubin) Small Glucose (test code = Glucose) Negative Appearance (test code = Clear Appearance) Color (test code = Color) Dark Yellow [facility]Ur[facility] (dipstick) panel - [id number] 15:44:30 Test Item Value Reference Range Interpretation Comments Leukocytes (test code = Small Leukocytes) Nitrite (test code = Nitrite) negative Urobilinogen (test code = 2 Urobilinogen) Protein (test code = Protein) 30 pH (test code = pH) 8.0 Blood (test code = Blood) Negative Specific Rolla (test code = 1.020 Specific Rolla) Ketone (test code = Ketone) Negative Bilirubin (test code = Bilirubin) Small Glucose (test code = Glucose) Negative Appearance (test code = Clear Appearance) Color (test code = Color) Dark Yellow [facility] (dipstick) panel - [id number] 15:44:30 Test Item Value Reference Range Interpretation Comments Leukocytes (test code = Small Leukocytes) Nitrite (test code = Nitrite) negative Urobilinogen (test code = 2 Urobilinogen) Protein (test code = Protein) 30 pH (test code = pH) 8.0 Blood (test code = Blood) Negative Specific Rolla (test code = 1.020 Specific Rolla) Ketone (test code = Ketone) Negative Bilirubin (test code = Bilirubin) Small Glucose (test code = Glucose) Negative Appearance (test code = Clear Appearance) Color (test code = Color) Dark Yellow [facility] profile panel [id number] 15:38:02 Test Item Value Reference Range Interpretation Comments Amniotic Fluid Index (test code = 2 (15.5) Amniotic Fluid Index) Tone (test code = Tone) 2 Breathing (test code = 2 Breathing) Movement (test code = 2 Movement) Non-Stress Test (test code = 2 Non-Stress Test) [facility] Biophysical profile panel [id number] 15:38:02 Test Item Value Reference Range Interpretation Comments Amniotic Fluid Index (test code = 2 (15.5) Amniotic Fluid Index) Tone (test code = Tone) 2 Breathing (test code = 2 Breathing) Movement (test code = 2 Movement) Non-Stress Test (test code = 2 Non-Stress Test) [facility] Biophysical profile panel [id number] 15:38:02 Test Item Value Reference Range Interpretation Comments Amniotic Fluid Index (test code = 2 (15.5) Amniotic Fluid Index) Tone (test code = Tone) 2 Breathing (test code = 2 Breathing) Movement (test code = 2 Movement) Non-Stress Test (test code = 2 Non-Stress Test) [facility] Biophysical profile panel [id number] 15:38:02 Test Item Value Reference Range Interpretation Comments Amniotic Fluid Index (test code = 2 (15.5) Amniotic Fluid Index) Tone (test code = Tone) 2 Breathing (test code = 2 Breathing) Movement (test code = 2 Movement) Non-Stress Test (test code = 2 Non-Stress Test) [facility] Biophysical profile panel [id number] 15:38:02 Test Item Value Reference Range Interpretation Comments Amniotic Fluid Index (test code = 2 (15.5) Amniotic Fluid Index) Tone (test code = Tone) 2 Breathing (test code = 2 Breathing) Movement (test code = 2 Movement) Non-Stress Test (test code = 2 Non-Stress Test) [facility] Biophysical profile panel [id number] 15:38:02 Test Item Value Reference Range Interpretation Comments Amniotic Fluid Index (test code = 2 (15.5) Amniotic Fluid Index) Tone (test code = Tone) 2 Breathing (test code = 2 Breathing) Movement (test code = 2 Movement) Non-Stress Test (test code = 2 Non-Stress Test) [facility] Biophysical profile panel [id number] 09:23:00 Test Item Value Reference Range Interpretation Comments Amniotic Fluid Index (test code = 2 (15.4) Amniotic Fluid Index) Tone (test code = Tone) 2 Breathing (test code = 2 Breathing) Movement (test code = 2 Movement) [facility] Biophysical profile panel [id number] 09:23:00 Test Item Value Reference Range Interpretation Comments Amniotic Fluid Index (test code = 2 (15.4) Amniotic Fluid Index) Tone (test code = Tone) 2 Breathing (test code = 2 Breathing) Movement (test code = 2 Movement) [facility] Biophysical profile panel [id number] 09:23:00 Test Item Value Reference Range Interpretation Comments Amniotic Fluid Index (test code = 2 (15.4) Amniotic Fluid Index) Tone (test code = Tone) 2 Breathing (test code = 2 Breathing) Movement (test code = 2 Movement) [facility] Biophysical profile panel [id number] 09:23:00 Test Item Value Reference Range Interpretation Comments Amniotic Fluid Index (test code = 2 (15.4) Amniotic Fluid Index) Tone (test code = Tone) 2 Breathing (test code = 2 Breathing) Movement (test code = 2 Movement) [facility] Biophysical profile panel [id number] 11:41:00 Test Item Value Reference Range Interpretation Comments Amniotic Fluid Index (test code = 2 (13.3) Amniotic Fluid Index) Tone (test code = Tone) 2 Breathing (test code = 2 Breathing) Movement (test code = 2 Movement) [facility] Biophysical profile panel [id number] 11:41:00 Test Item Value Reference Range Interpretation Comments Amniotic Fluid Index (test code = 2 (13.3) Amniotic Fluid Index) Tone (test code = Tone) 2 Breathing (test code = 2 Breathing) Movement (test code = 2 Movement) [facility] Biophysical profile panel [id number] 11:41:00 Test Item Value Reference Range Interpretation Comments Amniotic Fluid Index (test code = 2 (13.3) Amniotic Fluid Index) Tone (test code = Tone) 2 Breathing (test code = 2 Breathing) Movement (test code = 2 Movement) [facility] Biophysical profile panel [id number] 11:41:00 Test Item Value Reference Range Interpretation Comments Amniotic Fluid Index (test code = 2 (13.3) Amniotic Fluid Index) Tone (test code = Tone) 2 Breathing (test code = 2 Breathing) Movement (test code = 2 Movement) [facility] Biophysical profile panel [id number] 11:59:00 Test Item Value Reference Range Interpretation Comments Amniotic Fluid Index (test code = 2 (12.2) Amniotic Fluid Index) Tone (test code = Tone) 2 Breathing (test code = 2 Breathing) Movement (test code = 2 Movement) [facility] Biophysical profile panel [id number] 11:59:00 Test Item Value Reference Range Interpretation Comments Amniotic Fluid Index (test code = 2 (12.2) Amniotic Fluid Index) Tone (test code = Tone) 2 Breathing (test code = 2 Breathing) Movement (test code = 2 Movement) [facility] Biophysical profile panel [id number] 11:59:00 Test Item Value Reference Range Interpretation Comments Amniotic Fluid Index (test code = 2 (12.2) Amniotic Fluid Index) Tone (test code = Tone) 2 Breathing (test code = 2 Breathing) Movement (test code = 2 Movement) [facility] Biophysical profile panel [id number] 11:59:00 Test Item Value Reference Range Interpretation Comments Amniotic Fluid Index (test code = 2 (12.2) Amniotic Fluid Index) Tone (test code = Tone) 2 Breathing (test code = 2 Breathing) Movement (test code = 2 Movement) [facility] Biophysical profile panel [id number] 11:59:00 Test Item Value Reference Range Interpretation Comments Amniotic Fluid Index (test code = 2 (12.2) Amniotic Fluid Index) Tone (test code = Tone) 2 Breathing (test code = 2 Breathing) Movement (test code = 2 Movement) [facility]Bacteria identified in Urine by [id number] 10:18:00 Test Item Value Reference Range Interpretation Comments Bacteria identified in no growth after 2 Urine by Culture (test days code = 630-4) [facility] GroupBacteria identified in Urine by [id number] 10:18:00 Test Item Value Reference Range Interpretation Comments Bacteria identified in no growth after 2 Urine by Culture (test days code = 630-4) [facility] GroupBacteria identified in Urine by [id number] 10:18:00 Test Item Value Reference Range Interpretation Comments Bacteria identified in no growth after 2 Urine by Culture (test days code = 630-4) [facility] GroupBacteria identified in Urine by [id number] 10:18:00 Test Item Value Reference Range Interpretation Comments Bacteria identified in no growth after 2 Urine by Culture (test days code = 630-4) [facility] GroupGlucose [Mass/volume] in Serum or Plasma --1 hour post dose [id number] 12:27:00 Test Item Value Reference Range Interpretation Comments Results (test code = Results) 152-Fail [facility] GroupGlucose [Mass/volume] in Serum or Plasma --1 hour post dose [id number] 12:27:00 Test Item Value Reference Range Interpretation Comments Results (test code = Results) 152-Fail [facility] GroupGlucose [Mass/volume] in Serum or Plasma --1 hour post dose [id number] 12:27:00 Test Item Value Reference Range Interpretation Comments Results (test code = Results) 152-Fail [facility] GroupGlucose [Mass/volume] in Serum or Plasma --1 hour post dose [id number] 12:27:00 Test Item Value Reference Range Interpretation Comments Results (test code = Results) 152-Fail [facility] GroupGlucose [Mass/volume] in Serum or Plasma --1 hour post dose [id number] 12:27:00 Test Item Value Reference Range Interpretation Comments Results (test code = Results) 152-Fail [facility] GroupCBC W Auto Differential panel - [id number] 11:08:00 Test Item Value Reference Range Interpretation Comments white blood count (test code = 14.1 K/uL 4.0-11.5 H white blood count) red blood count (test code = red 4.04 M/uL 3.80-5.20 blood count) hemoglobin (test code = 11.1 g/dL 10.5-15.7 hemoglobin) hematocrit (test code = 35.1 % 34.0-50.0 hematocrit) Erythrocyte mean corpuscular 86.9 fL 86-100 volume [Entitic volume] (test code = 87678-7) mean corpuscular hemoglobin (test 27.5 pg 26.2-33.4 [...] H leukocytes in Blood (test code = 35037-8) Granulocytes Immature [#/volume] 0.1 K/uL 0.0-0.03 H in Blood (test code = 99584-4) lymphocyte% (test code = 10.7 % 10.0-50.0 lymphocyte%) mono % (test code = mono %) 4.0 % 3.6-12.0 eos % (test code = eos %) 0.1 % 0.0-5.4 Basophils/100 leukocytes in 0.1 % 0.1-1.2 Unspecified specimen (test code = 04230-7) Neutrophils.band form [#/volume] 11.91 K/uL 1.56-6.13 H in Blood (test code = 90185-5) Lymphocytes [#/volume] in 1.5 K/uL 1.18-3.74 Unspecified specimen by Automated count (test code = 66441-3) mono # (test code = mono #) 0.56 K/uL 0.24-0.86 eos # (test code = eos #) 0.01 K/uL 0.04-0.36 L basophil # (test code = basophil 0.02 K/uL 0.01-0.08 #) NRBC% (test code = NRBC%) 0 /100 WBC 0-0.2 NRBC# (test code = NRBC#) 0 K/uL [facility], [id number] 11:08:00 NeutrophilsBandLymphocyteMonocytePlatelet EstimateMataField Memorial Community HospitalBlood group antibody screen [Presence] in Serum or [id number] 11:08:00 Test Item Value Reference Range Interpretation Comments Blood group antibody screen negative [Presence] in Serum or Plasma (test code = 890-4) [facility]CB [facility] Auto Differential panel - [id number] 11:08:00 Test Item Value Reference Range Interpretation Comments white blood count (test code = 14.1 K/uL 4.0-11.5 H white blood count) red blood count (test code = red 4.04 M/uL 3.80-5.20 blood count) hemoglobin (test code = 11.1 g/dL 10.5-15.7 hemoglobin) hematocrit (test code = 35.1 % 34.0-50.0 hematocrit) Erythrocyte mean corpuscular 86.9 fL 86-100 volume [Entitic volume] (test code = 62287-8) mean corpuscular hemoglobin (test 27.5 pg 26.2-33.4 [...] H leukocytes in Blood (test code = 66898-8) Granulocytes Immature [#/volume] 0.1 K/uL 0.0-0.03 H in Blood (test code = 80082-1) lymphocyte% (test code = 10.7 % 10.0-50.0 lymphocyte%) mono % (test code = mono %) 4.0 % 3.6-12.0 eos % (test code = eos %) 0.1 % 0.0-5.4 Basophils/100 leukocytes in 0.1 % 0.1-1.2 Unspecified specimen (test code = 49952-0) Neutrophils.band form [#/volume] 11.91 K/uL 1.56-6.13 H in Blood (test code = 88282-2) Lymphocytes [#/volume] in 1.5 K/uL 1.18-3.74 Unspecified specimen by Automated count (test code = 65441-6) mono # (test code = mono #) 0.56 K/uL 0.24-0.86 eos # (test code = eos #) 0.01 K/uL 0.04-0.36 L basophil # (test code = basophil 0.02 K/uL 0.01-0.08 #) NRBC% (test code = NRBC%) 0 /100 WBC 0-0.2 NRBC# (test code = NRBC#) 0 K/uL [facility], [id number] 11:08:00 NeutrophilsBandLymphocyteMonocytePlatelet EstimateMaSinging River GulfportBlood group antibody screen [Presence] in Serum or [id number] 11:08:00 Test Item Value Reference Range Interpretation Comments Blood group antibody screen negative [Presence] in Serum or Plasma (test code = 890-4) [facility] CenterHIV [facility]2 Ab [Presence] in [id number] 11:08:00HIV P24 AgHIV-1/2 AbMaSinging River GulfportReagin Ab [Presence] in Serum by RPR 2019-03-09 11:08:00 Test Item Value Reference Range Interpretation Comments Reagin Ab [Presence] in Serum by nonreactive nonreactive RPR (test code = 78887-6) [facility] Differential panel - [id number] 11:08:00 Test Item Value Reference Range Interpretation Comments white blood count (test code = 14.1 K/uL 4.0-11.5 H white blood count) red blood count (test code = red 4.04 M/uL 3.80-5.20 blood count) hemoglobin (test code = 11.1 g/dL 10.5-15.7 hemoglobin) hematocrit (test code = 35.1 % 34.0-50.0 hematocrit) Erythrocyte mean corpuscular 86.9 fL 86-100 volume [Entitic volume] (test code = 72298-0) mean corpuscular hemoglobin (test 27.5 pg 26.2-33.4 [...] H leukocytes in Blood (test code = 71960-9) Granulocytes Immature [#/volume] 0.1 K/uL 0.0-0.03 H in Blood (test code = 74276-2) lymphocyte% (test code = 10.7 % 10.0-50.0 lymphocyte%) mono % (test code = mono %) 4.0 % 3.6-12.0 eos % (test code = eos %) 0.1 % 0.0-5.4 Basophils/100 leukocytes in 0.1 % 0.1-1.2 Unspecified specimen (test code = 53896-8) Neutrophils.band form [#/volume] 11.91 K/uL 1.56-6.13 H in Blood (test code = 45903-2) Lymphocytes [#/volume] in 1.5 K/uL 1.18-3.74 Unspecified specimen by Automated count (test code = 31762-8) mono # (test code = mono #) 0.56 K/uL 0.24-0.86 eos # (test code = eos #) 0.01 K/uL 0.04-0.36 L basophil # (test code = basophil 0.02 K/uL 0.01-0.08 #) NRBC% (test code = NRBC%) 0 /100 WBC 0-0.2 NRBC# (test code = NRBC#) 0 K/uL [facility]different[facility], [id number] 11:08:00 NeutrophilsBandLymphocyteMonocytePlatelet EstimateOch [facility] Medical CenterBlood group antibody screen [Presence] in Serum or [id number] 11:08:00 Test Item Value Reference Range Interpretation Comments Blood group antibody screen negative [Presence] in Serum or Plasma (test code = 890-4) [facility] CenterHIV [facility]2 Ab [Presence] in [id number] 11:08:00HIV P24 AgHIV-1/2 AbOch Regional Medical CenterReagin Ab [Presence] in Serum by RPR 2019-03-09 11:08:00 Test Item Value Reference Range Interpretation Comments Reagin Ab [Presence] in Serum by nonreactive nonreactive RPR (test code = 63586-0) [facility]CB [facility] Auto Differential panel - [id number] 11:08:00 Test Item Value Reference Range Interpretation Comments white blood count (test code = 14.1 K/uL 4.0-11.5 H white blood count) red blood count (test code = red 4.04 M/uL 3.80-5.20 blood count) hemoglobin (test code = 11.1 g/dL 10.5-15.7 hemoglobin) hematocrit (test code = 35.1 % 34.0-50.0 hematocrit) Erythrocyte mean corpuscular 86.9 fL 86-100 volume [Entitic volume] (test code = 18475-9) mean corpuscular hemoglobin (test 27.5 pg 26.2-33.4 [...] H leukocytes in Blood (test code = 65633-7) Granulocytes Immature [#/volume] 0.1 K/uL 0.0-0.03 H in Blood (test code = 52025-5) lymphocyte% (test code = 10.7 % 10.0-50.0 lymphocyte%) mono % (test code = mono %) 4.0 % 3.6-12.0 eos % (test code = eos %) 0.1 % 0.0-5.4 Basophils/100 leukocytes in 0.1 % 0.1-1.2 Unspecified specimen (test code = 34759-8) Neutrophils.band form [#/volume] 11.91 K/uL 1.56-6.13 H in Blood (test code = 80773-1) Lymphocytes [#/volume] in 1.5 K/uL 1.18-3.74 Unspecified specimen by Automated count (test code = 38149-4) mono # (test code = mono #) 0.56 K/uL 0.24-0.86 eos # (test code = eos #) 0.01 K/uL 0.04-0.36 L basophil # (test code = basophil 0.02 K/uL 0.01-0.08 #) NRBC% (test code = NRBC%) 0 /100 WBC 0-0.2 NRBC# (test code = NRBC#) 0 K/uL [facility] Groupdifferential panel, [id number] 11:08:00 NeutrophilsBandLymphocyteMonocytePlatelet EstimateMatauniversity of connect[facility] hospitala Medical GroupBlood group antibody screen [Presence] in Serum or [id number] 11:08:00 Test Item Value Reference Range Interpretation Comments Blood group antibody screen negative [Presence] in Serum or Plasma (test code = 890-4) [facility] GroupHIV 1+2 Ab [Presence] in [id number] 11:08:00HIV P24 AgHIV-1/2 AbMataCentral [facility] GroupReagin Ab [Presence] in Serum by RPR 2019-03-09 11:08:00 Test Item Value Reference Range Interpretation Comments Reagin Ab [Presence] in Serum by nonreactive nonreactive RPR (test code = 21988-1) [facility] W Auto Differential panel - [id number] 11:08:00 Test Item Value Reference Range Interpretation Comments white blood count (test code = 14.1 K/uL 4.0-11.5 H white blood count) red blood count (test code = red 4.04 M/uL 3.80-5.20 blood count) hemoglobin (test code = 11.1 g/dL 10.5-15.7 hemoglobin) hematocrit (test code = 35.1 % 34.0-50.0 hematocrit) Erythrocyte mean corpuscular 86.9 fL 86-100 volume [Entitic volume] (test code = 99269-1) mean corpuscular hemoglobin (test 27.5 pg 26.2-33.4 [...] H leukocytes in Blood (test code = 95907-4) Granulocytes Immature [#/volume] 0.1 K/uL 0.0-0.03 H in Blood (test code = 89971-2) lymphocyte% (test code = 10.7 % 10.0-50.0 lymphocyte%) mono % (test code = mono %) 4.0 % 3.6-12.0 eos % (test code = eos %) 0.1 % 0.0-5.4 Basophils/100 leukocytes in 0.1 % 0.1-1.2 Unspecified specimen (test code = 01592-5) Neutrophils.band form [#/volume] 11.91 K/uL 1.56-6.13 H in Blood (test code = 95460-1) Lymphocytes [#/volume] in 1.5 K/uL 1.18-3.74 Unspecified specimen by Automated count (test code = 88048-3) mono # (test code = mono #) 0.56 K/uL 0.24-0.86 eos # (test code = eos #) 0.01 K/uL 0.04-0.36 L basophil # (test code = basophil 0.02 K/uL 0.01-0.08 #) NRBC% (test code = NRBC%) 0 /100 WBC 0-0.2 NRBC# (test code = NRBC#) 0 K/uL [facility] Groupdifferential panel, [id number] 11:08:00 NeutrophilsBandLymphocyteMonocytePlatelet EstimateMatauniversity of connect[facility] center/[facility] hospitala Medical GroupBlood group antibody screen [Presence] in Serum or [id number] 11:08:00 Test Item Value Reference Range Interpretation Comments Blood group antibody screen negative [Presence] in Serum or Plasma (test code = 890-4) [facility] GroupHIV 1+2 Ab [Presence] in [id number] 11:08:00HIV P24 AgHIV-1/2 AbMasovah health - [facility] Medical GroupReagin Ab [Presence] in Serum by RPR 2019-03-09 11:08:00 Test Item Value Reference Range Interpretation Comments Reagin Ab [Presence] in Serum by nonreactive nonreactive RPR (test code = 86710-7) [facility] GroupChlamydia trachomatis+Neisseria gonorrhoeae DNA [Presence] in Cervix by Probe and target amplification [id number] 10:54:00 ResultsMatagorda Medical GroupMicroscopic observation [Identifier] in Cervix by Cyto stain.thin [id number] 10:54:00ResultsMatarda Medical GroupChlamydia trachomatis+Neisseria gonorrhoeae DNA [Presence] in Cervix by Probe and target amplification [id number] 10:54:00ResultsMatagorda Medical GroupMicroscopic observation [Identifier] in Cervix by Cyto stain.thin [id number] 10:54:00 ResultsMatagorda Medical GroupChlamydia trachomatis+Neisseria gonorrhoeae DNA [Presence] in Cervix by Probe and target amplification [id number] 10:54:00 ResultsMatagorda Medical GroupMicroscopic observation [Identifier] in Cervix by Cyto stain.thin [id number] 10:54:00ResultsOch [facility] Medical CenterChlamydia trachomatis+Neisseria gonorrhoeae DNA [Presence] in Cervix by Probe and target amplification [id number] 10:54:00ResultsOch Regional Medical CenterMicroscopic observation [Identifier] in Cervix by Cyto stain.thin [id number] 10:54:00 ResultsMaSinging River GulfportUrinalysis macro (dipstick) panel - Urine 2019-03-04 15:32:00 Test Item Value Reference Range Interpretation Comments Leukocytes (test code = Moderate Leukocytes) Nitrite (test code = negative Nitrite) Urobilinogen (test code = .2 Urobilinogen) Protein (test code = Trace Protein) pH (test code = pH) 7.0 Blood (test code = Blood) Non-Hemolyzed: Trace Specific Rolla (test 1.020 code = Specific Rolla) Ketone (test code = Trace Ketone) Bilirubin (test code = Negative Bilirubin) Glucose (test code = Negative Glucose) Appearance (test code = Clear Appearance) Color (test code = Color) Yellow [facility] CenterUrinalysis macro (dipstick) panel - [id number] 15:32:00 Test Item Value Reference Range Interpretation Comments Leukocytes (test code = Moderate Leukocytes) Nitrite (test code = negative Nitrite) Urobilinogen (test code = .2 Urobilinogen) Protein (test code = Trace Protein) pH (test code = pH) 7.0 Blood (test code = Blood) Non-Hemolyzed: Trace Specific Rolla (test 1.020 code = Specific Rolla) Ketone (test code = Trace Ketone) Bilirubin (test code = Negative Bilirubin) Glucose (test code = Negative Glucose) Appearance (test code = Clear Appearance) Color (test code = Color) Yellow [facility] CenterUrinalysis macro (dipstick) panel - [id number] 15:32:00 Test Item Value Reference Range Interpretation Comments Leukocytes (test code = Moderate Leukocytes) Nitrite (test code = negative Nitrite) Urobilinogen (test code = .2 Urobilinogen) Protein (test code = Trace Protein) pH (test code = pH) 7.0 Blood (test code = Blood) Non-Hemolyzed: Trace Specific Rolla (test 1.020 code = Specific Rolla) Ketone (test code = Trace Ketone) Bilirubin (test code = Negative Bilirubin) Glucose (test code = Negative Glucose) Appearance (test code = Clear Appearance) Color (test code = Color) Yellow [facility] CenterUrinalysis macro (dipstick) panel - [id number] 15:32:00 Test Item Value Reference Range Interpretation Comments Leukocytes (test code = Moderate Leukocytes) Nitrite (test code = negative Nitrite) Urobilinogen (test code = .2 Urobilinogen) Protein (test code = Trace Protein) pH (test code = pH) 7.0 Blood (test code = Blood) Non-Hemolyzed: Trace Specific Rolla (test 1.020 code = Specific Rolla) Ketone (test code = Trace Ketone) Bilirubin (test code = Negative Bilirubin) Glucose (test code = Negative Glucose) Appearance (test code = Clear Appearance) Color (test code = Color) Yellow [facility] CenterUrinalysis macro (dipstick) panel - [id number] 15:32:00 Test Item Value Reference Range Interpretation Comments Leukocytes (test code = Moderate Leukocytes) Nitrite (test code = negative Nitrite) Urobilinogen (test code = .2 Urobilinogen) Protein (test code = Trace Protein) pH (test code = pH) 7.0 Blood (test code = Blood) Non-Hemolyzed: Trace Specific Rolla (test 1.020 code = Specific Rolla) Ketone (test code = Trace Ketone) Bilirubin (test code = Negative Bilirubin) Glucose (test code = Negative Glucose) Appearance (test code = Clear Appearance) Color (test code = Color) Yellow [facility] CenterUrinalysis macro (dipstick) panel - [id number] 15:32:00 Test Item Value Reference Range Interpretation Comments Leukocytes (test code = Moderate Leukocytes) Nitrite (test code = negative Nitrite) Urobilinogen (test code = .2 Urobilinogen) Protein (test code = Trace Protein) pH (test code = pH) 7.0 Blood (test code = Blood) Non-Hemolyzed: Trace Specific Rolla (test 1.020 code = Specific Rolla) Ketone (test code = Trace Ketone) Bilirubin (test code = Negative Bilirubin) Glucose (test code = Negative Glucose) Appearance (test code = Clear Appearance) Color (test code = Color) Yellow [facility] W Auto Differential panel - [id number] 12:35:00 Test Item Value Reference Range Interpretation Comments white blood count (test code = 12.4 K/uL 4.0-11.5 white blood count) red blood count (test code = red 3.63 M/uL 3.80-5.20 L blood count) hemoglobin (test code = 10.0 g/dL 10.5-15.7 L hemoglobin) hematocrit (test code = 31.4 % 34.0-50.0 hematocrit) Erythrocyte mean corpuscular 86.5 fL 86-100 volume [Entitic volume] (test code = 68052-6) mean corpuscular hemoglobin (test 27.5 pg 26.2-33.4 [...] 44.4-80.1 leukocytes in Blood (test code = 87430-7) Granulocytes Immature [#/volume] 0.1 K/uL 0.0-0.03 H in Blood (test code = 58983-3) lymphocyte% (test code = 15.7 % 10.0-50.0 lymphocyte%) mono % (test code = mono %) 5.7 % 3.6-12.0 eos % (test code = eos %) 0.3 % 0.0-5.4 Basophils/100 leukocytes in 0.2 % 0.1-1.2 Unspecified specimen (test code = 48354-3) Neutrophils.band form [#/volume] 9.61 K/uL 1.56-6.13 H in Blood (test code = 45254-0) Lymphocytes [#/volume] in 1.9 K/uL 1.18-3.74 Unspecified specimen by Automated count (test code = 42772-3) mono # (test code = mono #) 0.70 K/uL 0.24-0.86 eos # (test code = eos #) 0.04 K/uL 0.04-0.36 basophil # (test code = basophil 0.02 K/uL 0.01-0.08 #) NRBC% (test code = NRBC%) 0 /100 WBC 0-0.2 NRBC# (test code = NRBC#) 0 K/uL [facility] GroupHIV 1+2 Ab [Presence] in [id number] 12:35:00HIV P24 AgHIV-1/2 AbMataCentral Vermont Medical Center GroupABO & Rh group [Type] in [id number] 12:35:00 Test Item Value Reference Range Interpretation Comments Rh [Type] in Blood (test code = 3+ 07249-5) ABO and Rh group panel - Blood O positive (test code = 12403-3) [facility] GroupBlood group antibody screen [Presence] in Serum or Plasma 2019-03-04 12:35:00 Test Item Value Reference Range Interpretation Comments Blood group antibody screen negative [Presence] in Serum or Plasma (test code = 890-4) [facility] GroupBacteria identified in Urine by [id number] 12:35:00Bacteria Ur CultCorpus Christi Medical Center [facility] Area GroupReagin Ab [Presence] in Serum by [id number] 12:35:00 Test Item Value Reference Range Interpretation Comments Reagin Ab [Presence] in Serum by nonreactive nonreactive RPR (test code = 96708-4) [facility] Groupantibiotic sensitivity testing, [id number] 12:35:00 Test Item Value Reference Range Interpretation Comments Gentamicin [Susceptibility] by Minimum <2 inhibitory concentration (GUSTAVO) (test code = 267-5) Ampicillin [Susceptibility] by Minimum <8 inhibitory concentration (GUSTAVO) (test code = 28-1) Cefazolin [Susceptibility] by Minimum <2 inhibitory concentration (GUSTAOV) (test code = 76-0) Trimethoprim+Sulfamethoxazole =2/38 [Susceptibility] [...] Minimum inhibitory concentration (GUSTAVO) (test code = 30196-7) Piperacillin+Tazobactam <16 [Susceptibility] by Minimum inhibitory concentration [...] <0.5 inhibitory concentration (GUSTAVO) (test code = 58889-5) Aztreonam [Susceptibility] by Minimum <4 inhibitory concentration (GUSTAVO) (test code = 44-8) Cefuroxime [Susceptibility] by Minimum <4 inhibitory concentration (GUSTAVO) (test code = 98271-6) [facility] W Auto Differential panel - [id number] 12:35:00 Test Item Value Reference Range Interpretation Comments white blood count (test code = 12.4 K/uL 4.0-11.5 white blood count) red blood count (test code = red 3.63 M/uL 3.80-5.20 L blood count) hemoglobin (test code = 10.0 g/dL 10.5-15.7 L hemoglobin) hematocrit (test code = 31.4 % 34.0-50.0 hematocrit) Erythrocyte mean corpuscular 86.5 fL 86-100 volume [Entitic volume] (test code = 66921-0) mean corpuscular hemoglobin (test 27.5 pg 26.2-33.4 [...] 44.4-80.1 leukocytes in Blood (test code = 67883-9) Granulocytes Immature [#/volume] 0.1 K/uL 0.0-0.03 H in Blood (test code = 60070-5) lymphocyte% (test code = 15.7 % 10.0-50.0 lymphocyte%) mono % (test code = mono %) 5.7 % 3.6-12.0 eos % (test code = eos %) 0.3 % 0.0-5.4 Basophils/100 leukocytes in 0.2 % 0.1-1.2 Unspecified specimen (test code = 45640-8) Neutrophils.band form [#/volume] 9.61 K/uL 1.56-6.13 H in Blood (test code = 76848-1) Lymphocytes [#/volume] in 1.9 K/uL 1.18-3.74 Unspecified specimen by Automated count (test code = 47222-5) mono # (test code = mono #) 0.70 K/uL 0.24-0.86 eos # (test code = eos #) 0.04 K/uL 0.04-0.36 basophil # (test code = basophil 0.02 K/uL 0.01-0.08 #) NRBC% (test code = NRBC%) 0 /100 WBC 0-0.2 NRBC# (test code = NRBC#) 0 K/uL [facility]2 Ab [Presence] in [id number] 12:35:00HIV P24 AgHIV-1/2 AbMata[facility] GroupABO & Rh group [Type] in [id number] 12:35:00 Test Item Value Reference Range Interpretation Comments Rh [Type] in Blood (test code = 3+ 64204-3) ABO and Rh group panel - Blood O positive (test code = 63500-3) [facility] [Presence] in Serum or Plasma 2019-03-04 12:35:00 Test Item Value Reference Range Interpretation Comments Blood group antibody screen negative [Presence] in Serum or Plasma (test code = 890-4) [facility] CenterBacteria identified in Urine by [id number] 12:35:00Bacteria Ur CultOch Regional Medical CenterReagin Ab [Presence] in Serum by [id number] 12:35:00 Test Item Value Reference Range Interpretation Comments Reagin Ab [Presence] in Serum by nonreactive nonreactive RPR (test code = 67016-8) [facility], [id number] 12:35:00 Test Item Value Reference Range Interpretation [...] Minimum inhibitory concentration (GUSTAVO) (test code = 89389-0) Piperacillin+Tazobactam <16 [Susceptibility] by Minimum inhibitory concentration [...] <0.5 inhibitory concentration (GUSTAVO) (test code = 35857-2) Aztreonam [Susceptibility] by Minimum <4 inhibitory concentration (GUSTAVO) (test code = 44-8) Cefuroxime [Susceptibility] by Minimum <4 inhibitory concentration (GUSTAVO) (test code = 67885-0) [facility] W Auto Differential panel - [id number] 12:35:00 Test Item Value Reference Range Interpretation Comments white blood count (test code = 12.4 K/uL 4.0-11.5 white blood count) red blood count (test code = red 3.63 M/uL 3.80-5.20 L blood count) hemoglobin (test code = 10.0 g/dL 10.5-15.7 L hemoglobin) hematocrit (test code = 31.4 % 34.0-50.0 hematocrit) Erythrocyte mean corpuscular 86.5 fL 86-100 volume [Entitic volume] (test code = 61200-4) mean corpuscular hemoglobin (test 27.5 pg 26.2-33.4 [...] 44.4-80.1 leukocytes in Blood (test code = 60038-3) Granulocytes Immature [#/volume] 0.1 K/uL 0.0-0.03 H in Blood (test code = 93654-6) lymphocyte% (test code = 15.7 % 10.0-50.0 lymphocyte%) mono % (test code = mono %) 5.7 % 3.6-12.0 eos % (test code = eos %) 0.3 % 0.0-5.4 Basophils/100 leukocytes in 0.2 % 0.1-1.2 Unspecified specimen (test code = 49964-0) Neutrophils.band form [#/volume] 9.61 K/uL 1.56-6.13 H in Blood (test code = 97639-3) Lymphocytes [#/volume] in 1.9 K/uL 1.18-3.74 Unspecified specimen by Automated count (test code = 92766-7) mono # (test code = mono #) 0.70 K/uL 0.24-0.86 eos # (test code = eos #) 0.04 K/uL 0.04-0.36 basophil # (test code = basophil 0.02 K/uL 0.01-0.08 #) NRBC% (test code = NRBC%) 0 /100 WBC 0-0.2 NRBC# (test code = NRBC#) 0 K/uL [facility]2 Ab [Presence] in [id number] 12:35:00HIV P24 AgHIV-1/2 AbMatagorda Medical GroupABO & Rh group [Type] in [id number] 12:35:00 Test Item Value Reference Range Interpretation Comments Rh [Type] in Blood (test code = 3+ 62596-3) ABO and Rh group panel - Blood O positive (test code = 34171-5) [facility] antibody screen [Presence] in Serum or Plasma 2019-03-04 12:35:00 Test Item Value Reference Range Interpretation Comments Blood group antibody screen negative [Presence] in Serum or Plasma (test code = 890-4) [facility] GroupBacteria identified in Urine by [id number] 12:35:00Bacteria Ur CultMatagorda Medical GroupReagin Ab [Presence] in Serum by [id number] 12:35:00 Test Item Value Reference Range Interpretation Comments Reagin Ab [Presence] in Serum by nonreactive nonreactive RPR (test code = 43693-7) [facility], [id number] 12:35:00 Test Item Value Reference Range Interpretation [...] Minimum inhibitory concentration (GUSTAVO) (test code = 98611-7) Piperacillin+Tazobactam <16 [Susceptibility] by Minimum inhibitory concentration [...] <0.5 inhibitory concentration (GUSTAVO) (test code = 80157-0) Aztreonam [Susceptibility] by Minimum <4 inhibitory concentration (GUSTAVO) (test code = 44-8) Cefuroxime [Susceptibility] by Minimum <4 inhibitory concentration (GUSTAVO) (test code = 81154-4) [facility] W Auto Differential panel - [id number] 12:35:00 Test Item Value Reference Range Interpretation Comments white blood count (test code = 12.4 K/uL 4.0-11.5 white blood count) red blood count (test code = red 3.63 M/uL 3.80-5.20 L blood count) hemoglobin (test code = 10.0 g/dL 10.5-15.7 L hemoglobin) hematocrit (test code = 31.4 % 34.0-50.0 hematocrit) Erythrocyte mean corpuscular 86.5 fL 86-100 volume [Entitic volume] (test code = 60529-2) mean corpuscular hemoglobin (test 27.5 pg 26.2-33.4 [...] 44.4-80.1 leukocytes in Blood (test code = 51773-3) Granulocytes Immature [#/volume] 0.1 K/uL 0.0-0.03 H in Blood (test code = 90640-1) lymphocyte% (test code = 15.7 % 10.0-50.0 lymphocyte%) mono % (test code = mono %) 5.7 % 3.6-12.0 eos % (test code = eos %) 0.3 % 0.0-5.4 Basophils/100 leukocytes in 0.2 % 0.1-1.2 Unspecified specimen (test code = 95801-3) Neutrophils.band form [#/volume] 9.61 K/uL 1.56-6.13 H in Blood (test code = 19714-4) Lymphocytes [#/volume] in 1.9 K/uL 1.18-3.74 Unspecified specimen by Automated count (test code = 76012-4) mono # (test code = mono #) 0.70 K/uL 0.24-0.86 eos # (test code = eos #) 0.04 K/uL 0.04-0.36 basophil # (test code = basophil 0.02 K/uL 0.01-0.08 #) NRBC% (test code = NRBC%) 0 /100 WBC 0-0.2 NRBC# (test code = NRBC#) 0 K/uL [facility] GroupHIV 1+2 Ab [Presence] in [id number] 12:35:00HIV P24 AgHIV-1/2 AbMatarda Medical GroupABO & Rh group [Type] in [id number] 12:35:00 Test Item Value Reference Range Interpretation Comments Rh [Type] in Blood (test code = 3+ 81162-2) ABO and Rh group panel - Blood O positive (test code = 30048-8) [facility] GroupBlood group antibody screen [Presence] in Serum or Plasma 2019-03-04 12:35:00 Test Item Value Reference Range Interpretation Comments Blood group antibody screen negative [Presence] in Serum or Plasma (test code = 890-4) [facility] GroupBacteria identified in Urine by [id number] 12:35:00Bacteria Ur CultL[facility] Centera Medical GroupReagin Ab [Presence] in Serum by [id number] 12:35:00 Test Item Value Reference Range Interpretation Comments Reagin Ab [Presence] in Serum by nonreactive nonreactive RPR (test code = 01123-0) [facility] Groupantib[facility] sensitivity testing, [id number] 12:35:00 Test Item Value Reference Range Interpretation [...] Cefotaxime [Susceptibility] by Minimum <2 inhibitory concentration (GUSTAOV) (test code = 108-1) Cefepime [Susceptibility] by Minimum <8 inhibitory concentration (GUSTAVO) (test code = 6644-9) Levofloxacin [Susceptibility] by <2 Minimum inhibitory concentration (GUSTAVO) (test code = 44659-7) Piperacillin+Tazobactam <16 [Susceptibility] by Minimum inhibitory concentration [...] <0.5 inhibitory concentration (GUSTAVO) (test code = 21918-1) Aztreonam [Susceptibility] by Minimum <4 inhibitory concentration (GUSTAVO) (test code = 44-8) Cefuroxime [Susceptibility] by Minimum <4 inhibitory concentration (GUSTAVO) (test code = 97813-1) [facility] W Auto Differential panel - [id number] 12:35:00 Test Item Value Reference Range Interpretation Comments white blood count (test code = 12.4 K/uL 4.0-11.5 white blood count) red blood count (test code = red 3.63 M/uL 3.80-5.20 L blood count) hemoglobin (test code = 10.0 g/dL 10.5-15.7 L hemoglobin) hematocrit (test code = 31.4 % 34.0-50.0 hematocrit) Erythrocyte mean corpuscular 86.5 fL 86-100 volume [Entitic volume] (test code = 77984-2) mean corpuscular hemoglobin (test 27.5 pg 26.2-33.4 [...] 44.4-80.1 leukocytes in Blood (test code = 69739-0) Granulocytes Immature [#/volume] 0.1 K/uL 0.0-0.03 H in Blood (test code = 46599-1) lymphocyte% (test code = 15.7 % 10.0-50.0 lymphocyte%) mono % (test code = mono %) 5.7 % 3.6-12.0 eos % (test code = eos %) 0.3 % 0.0-5.4 Basophils/100 leukocytes in 0.2 % 0.1-1.2 Unspecified specimen (test code = 65995-0) Neutrophils.band form [#/volume] 9.61 K/uL 1.56-6.13 H in Blood (test code = 55190-9) Lymphocytes [#/volume] in 1.9 K/uL 1.18-3.74 Unspecified specimen by Automated count (test code = 90505-6) mono # (test code = mono #) 0.70 K/uL 0.24-0.86 eos # (test code = eos #) 0.04 K/uL 0.04-0.36 basophil # (test code = basophil 0.02 K/uL 0.01-0.08 #) NRBC% (test code = NRBC%) 0 /100 WBC 0-0.2 NRBC# (test code = NRBC#) 0 K/uL [facility] GroupHIV 1+2 Ab [Presence] in [id number] 12:35:00HIV P24 AgHIV-1/2 AbMaAsc[facility] GroupABO & Rh group [Type] in [id number] 12:35:00 Test Item Value Reference Range Interpretation Comments Rh [Type] in Blood (test code = 3+ 94325-7) ABO and Rh group panel - Blood O positive (test code = 97986-4) [facility] screen [Presence] in Serum or Plasma 2019-03-04 12:35:00 Test Item Value Reference Range Interpretation Comments Blood group antibody screen negative [Presence] in Serum or Plasma (test code = 890-4) [facility] CenterBacteria identified in Urine by [id number] 12:35:00Bacteria Ur CultOch Regional Medical CenterReagin Ab [Presence] in Serum by [id number] 12:35:00 Test Item Value Reference Range Interpretation Comments Reagin Ab [Presence] in Serum by nonreactive nonreactive RPR (test code = 33586-2) [facility] Center[facility], [id number] 12:35:00 Test Item Value Reference Range Interpretation [...] Minimum inhibitory concentration (GUSTAVO) (test code = 10584-1) Piperacillin+Tazobactam <16 [Susceptibility] by Minimum inhibitory concentration [...] <0.5 inhibitory concentration (GUSTAVO) (test code = 04187-4) Aztreonam [Susceptibility] by Minimum <4 inhibitory concentration (GUSTAVO) (test code = 44-8) Cefuroxime [Susceptibility] by Minimum <4 inhibitory concentration (GUSTAVO) (test code = 65310-9) [facility] B virus surface Ag [Presence] in Serum 2019-03-04 02:36:00 Test Item Value Reference Range Interpretation Comments .hepatitis B surface antigen (test negative negative code = .hepatitis B surface antigen) [facility] B virus surface Ag [Presence] in Serum 2019-03-04 02:36:00 Test Item Value Reference Range Interpretation Comments .hepatitis B surface antigen (test negative negative code = .hepatitis B surface antigen) [facility] B virus surface Ag [Presence] in Serum 2019-03-04 02:36:00 Test Item Value Reference Range Interpretation Comments .hepatitis B surface antigen (test negative negative code = .hepatitis B surface antigen) [facility] B virus surface Ag [Presence] in Serum 2019-03-04 02:36:00 Test Item Value Reference Range Interpretation Comments .hepatitis B surface antigen (test negative negative code = .hepatitis B surface antigen) [facility] B virus surface Ag [Presence] in Serum 2019-03-04 02:36:00 Test Item Value Reference Range Interpretation Comments .hepatitis B surface antigen (test negative negative code = .hepatitis B surface antigen) [facility]"
[2022-10-31 19:30] LABS: Absolute Lymphocytes (CBC) 2.7 K/uL (0.7-4.9); Hematocrit 33.8 % (36.0-45.0); Lymphocytes % 31.6 % (15.3-44.8); MCV 79.7 fL (80-100); RBC Red Blood Cell Count 4.24 M/uL (3.86-4.86)
[2022-10-31] MEDS ORDERED: NA CHLORIDE 0.9% 1,000 ML ONE (19:35)
[2022-10-31] MEDS ORDERED: FAMOTIDINE 20 MG/2 ML VIAL IV ONE (19:35)
[2022-10-31] MEDS ORDERED: ONDANSETRON 4 MG/2 ML VIAL ONE (19:35)
[2022-10-31 19:47] LABS: Specific Gravity 1.023 (1.005-1.030)
[2022-10-31 19:51] LABS: Albumin 3.7 g/dL (3.4-5.0); Bilirubin Total 0.4 mg/dL (0.2-1.0); Potassium 3.2 mEq/L (3.5-5.1); Protein, Total 6.5 g/dL (6.4-8.2)
[2022-10-31 19:55] LABS: Specific Gravity 1.024 (1.005-1.030); Urine Bacteria None Seen /HPF (<20); Urine Bilirubin NEGATIVE (Negative); Urine Blood Trace (Negative); Urine Clarity Clear (Clear); Urine Color Light-Yellow (Yellow); Urine Glucose NEGATIVE (Negative); Urine Mucus Slight /HPF (None Seen); Urine Protein NEGATIVE (Negative); Urine RBC <5 /HPF (None Seen); Urine Urobilinogen Normal (Normal); Urine pH 5.5 (5.0-7.0)
[2022-10-31] MEDS ORDERED: MORPHINE 4 MG/ML SYR ONE (20:40)
--- NOTE | 2022-10-31 20:45 | RAD REPORT ---
EXAM DESCRIPTION: CT - Abdomen Pelvis W Contrast - 10/31/2022 8:25 pm CLINICAL HISTORY: Abdominal pain COMPARISON: July 2022 TECHNIQUE: Computed axial tomography of the abdomen pelvis was obtained. 95 cc Isovue-300 was admini stered intravenously. Oral contrast was not requested which limits evaluation of bowel and appendix All CT scans are performed using dose optimization technique as appropriate and may include automated exposure control or mA/KV adjustment according to patient size. FINDINGS: The liver, spleen, pancreas, adrenal and kidneys appear unremarkable. There is no evidence of diverticulitis. Normal appendix Cholecystectomy 1.5 centimeter left ovarian follicle. Retroverted uterus. IMPRESSION: No acute abnormality is displayed.
--- NOTE | 2022-10-31 21:22 | ER ---
Nurse's Notes [facility] Name: Gloria Modi Age: 27 yrs Sex: Female : 1995 Arrival Date: 10/31/2022 Time: 18:16 Bed 6 Private MD: Diagnosis: Upper abdominal pain, unspecified Presentation: 10/31 18:29 Chief complaint: Patient states: Epigastric pain that radiates to RUQ, had gallbladder ph removed a few months ago, has had pain since, scope scheduled w/ Dr White tomorrow but can't wait d/t severe pain. Coronavirus screen: Vaccine status: Patient reports being unvaccinated. Ebola Screen: No symptoms or risks identified at this time. Initial Sepsis Screen: Does the patient meet any 2 criteria? No. Patient's initial sepsis screen is negative. Does the patient have a suspected source of infection? No. Patient's initial sepsis screen is negative. Risk Assessment: Do you want to hurt yourself or someone else? Patient reports no desire to harm self or others. Onset of symptoms was October 31, 2022. 18:29 Method Of Arrival: Ambulatory ph 18:29 Method Of Arrival: Ambulatory ph 18:29 Acuity: NICO 3 ph Triage Assessment: 18:32 General: Appears in no apparent distress. Behavior is calm, cooperative, appropriate ph for age. Pain: Complains of pain in epigastric area and right upper quadrant. GI: Reports upper abdominal pain, nausea, vomiting. Historical: - Allergies: 18:32 Latex, Natural Rubber; ph 18:32 Tylenol # 3; ph - PMHx: 18:32 Bipolar disorder; chronic back pain; [place]; PTSD; ph - PSHx: 18:32 Cholecystectomy; tubal; ph - Immunization history:: Adult Immunizations unknown. - Social history:: Smoking status: Reported history of juuling and/or vaping. Screenin:31 Abuse screen: Denies threats or abuse. Nutritional screening: No deficits noted. vc1 Tuberculosis screening: No symptoms or risk factors identified. 21:24 [facility] ED Fall Risk Assessment (Adult) History of falling in the last 3 months, vc1 including since admission No falls in past 3 months (0 pts) Confusion or Disorientation No (0 pts) Intoxicated or Sedated No (0 pts) Impaired Gait No (0 pts) Mobility Assist Device Used No (0 pt) Altered Elimination No (0 pt) Score/Fall Risk Level 0 - 2 = Low Risk Oriented to surroundings, Maintained a safe environment, Educated pt \T\ family on fall prevention, incl call for assistance when getting out of bed. Assessment: 19:30 Reassessment: No changes from previously documented assessment. Patient and/or family vc1 updated on plan of care and expected duration. Pain level reassessed. Patient is alert, oriented x 3, equal unlabored respirations, skin warm/dry/pink. See triage assessment. 20:30 Reassessment: Patient appears in no apparent distress at this time. No changes from lg3 previously documented assessment. Patient and/or family updated on plan of care and expected duration. Pain level reassessed. Patient is alert, oriented x 3, equal unlabored respirations, skin warm/dry/pink. Pain: Complains of pain in abdomen Pain currently is 7 out of 10 on a pain scale. 21:23 Reassessment: No changes from previously documented assessment. Patient and/or family vc1 updated on plan of care and expected duration. Pain level reassessed. Patient is alert, oriented x 3, equal unlabored respirations, skin warm/dry/pink. Vital Signs: 18:29 BP 121 / 82; Pulse 82; Resp 18; Temp 99.3; Pulse Ox 98% ; Weight 43.09 kg; Height 5 ft. ph 0 in. ; 19:30 BP 110 / 80; Pulse 88; Resp 18; Pulse Ox 100% ; vc1 20:54 BP 120 / 90; Pulse 83; Resp 16; Temp 98.9; Pulse Ox 100% on R/A; jb5 21:22 BP 123 / 98; Pulse 92; Resp 16; Pulse Ox 100% ; vc1 18:29 Body Mass Index 18.55 (43.09 kg, 152.4 cm) ph ED Course: 18:19 Patient arrived in ED. mr 18:22 Alden Snider PA is PHCP. cp 18:22 Humberto Nava MD is Attending Physician. cp 18:32 Triage completed. ph 18:32 Arm band placed on Patient placed in waiting room, Patient notified of wait time. ph 19:00 Patient has correct armband on for positive identification. Bed in low position. vc1 Provided Education on: Follow up for scope tomorrow. Pulse ox on. NIBP on. 19:16 Inserted saline lock: 20 gauge in right antecubital area, using aseptic technique. vc1 Blood collected. 19:29 Estephania Amin, HORTENCIA is Primary Nurse. vc1 19:29 CBC with Diff Sent. vc1 19:29 CMP Sent. vc1 19:29 Lipase Sent. vc1 19:30 Test, Urine Sent. vc1 19:30 Urinalysis w/ reflexes Sent. vc1 20:27 CT Abd/Pelvis - IV Contrast Only In Process Unspecified. EDAZ 21:21 Radha White MD is Referral Physician. cp 21:23 No provider procedures requiring assistance completed. vc1 21:30 IV discontinued, intact, bleeding controlled, No redness/swelling at site. Pressure vc1 dressing applied. Administered Medications: 19:30 Drug: NS 0.9% IV 1000 ml Route: IV; Rate: 1 bolus; Site: right antecubital; vc1 19:30 Drug: Famotidine IVP 20 mg Route: IVP; Site: right antecubital; vc1 20:47 Follow up: Response: No adverse reaction; Marked relief of symptoms lg3 19:30 Drug: Ondansetron IVP 4 mg Route: IVP; Site: right antecubital; vc1 20:47 Follow up: Response: No adverse reaction; Marked relief of symptoms lg3 20:46 Drug: morphine IVP or IV 4 mg Route: IVP; Infused Over: 4 mins; Site: right antecubital;lg3 21:26 Follow up: Response: No adverse reaction; Marked relief of symptoms vc1 21:22 Drug: Potassium PO Effervescent Tablet 50 mEq Route: PO; vc1 21:26 Follow up: Response: Medication administered at discharge. vc1 Medication: 21:24 VIS not applicable for this client. vc1 Outcome: 21:22 Discharge ordered by MD. cp 21:30 Discharged to home ambulatory. vc1 21:30 Condition: good 21:30 Discharge instructions given to patient, Instructed on discharge instructions, follow up and referral plans. Demonstrated understanding of instructions, follow-up care. 21:30 Patient left the ED. vc1 Signatures: [facility] Ashanti Andrade Patricia RN RN ph Agatha, Alden, PA PA Vivien Senior Lacie, RN RN lg3 Brennan, Estephania, RN RN vc1
--- NOTE | 2022-10-31 21:22 | EDPHYS ---
Physician Documentation [facility] Name: Gloria Modi Age: 27 yrs Sex: Female : 1995 Arrival Date: 10/31/2022 Time: 18:16 Bed 6 Private MD: ED Physician Humberto Nava HPI: 10/31 18:40 This 27 yrs old Female presents to ER via Ambulatory with complaints of Abdominal Pain. cp 18:40 The patient presents with abdominal pain in the upper abdomen. cp 18:40 Onset: The symptoms/episode began/occurred for past several months since removal of cp gallbladder. 18:40 The symptoms do not radiate. Associated signs and symptoms: Pertinent negatives: nausea cp and vomiting, chest pain, constipation, diarrhea, fever, headache. The symptoms are described as waxing/waning. Severity of pain: in the emergency department the pain is unchanged despite home interventions. Historical: - Allergies: 18:32 Latex, Natural Rubber; ph 18:32 Tylenol # 3; ph - PMHx: 18:32 Bipolar disorder; chronic back pain; [place]; PTSD; ph - PSHx: 18:32 Cholecystectomy; tubal; ph - Immunization history:: Adult Immunizations unknown. - Social history:: Smoking status: Reported history of juuling and/or vaping. ROS: 18:45 Constitutional: Negative for body aches, chills, fever, poor PO intake. cp 18:45 Eyes: Negative for injury, pain, redness, and discharge. cp 18:45 ENT: Negative for drainage from ear(s), ear pain, sore throat, difficulty swallowing, difficulty handling secretions. 18:45 Cardiovascular: Negative for chest pain, edema, palpitations. 18:45 Respiratory: Negative for cough, shortness of breath, wheezing. Exam: 18:50 Constitutional: The patient appears in no acute distress, alert, awake, non-toxic, well cp developed, well nourished. 18:50 Head/Face: Normocephalic, atraumatic. cp 18:50 Eyes: Periorbital structures: appear normal, Conjunctiva: normal, no exudate, no injection, Sclera: no appreciated abnormality, Lids and lashes: appear normal, bilaterally. 18:50 ENT: External ear(s): are unremarkable, Nose: is normal, Mouth: Lips: moist, Oral mucosa: pink and intact, moist, Posterior pharynx: is normal, airway is patent, no erythema, no exudate. 18:50 Chest/axilla: Inspection: normal. 18:50 Cardiovascular: Rate: normal, Rhythm: regular. 18:50 Respiratory: the patient does not display signs of respiratory distress, Respirations: normal, no use of accessory muscles, no retractions, labored breathing, is not present, Breath sounds: are clear throughout, no decreased breath sounds, no stridor, no wheezing. 18:50 Abdomen/GI: Inspection: abdomen appears normal, Bowel sounds: active, all quadrants, Palpation: soft, in all quadrants, moderate abdominal tenderness, in the epigastric area, right upper quadrant and left upper quadrant, rebound tenderness, is not appreciated, involuntary guarding, is not appreciated. 18:50 Back: CVA tenderness, is absent. 18:50 Neuro: Orientation: to person, place \T\ time. Mentation: is normal, Motor: moves all fours, strength is normal, Sensation: is normal, Gait: is steady. Vital Signs: 18:29 BP 121 / 82; Pulse 82; Resp 18; Temp 99.3; Pulse Ox 98% ; Weight 43.09 kg; Height 5 ft. ph 0 in. ; 19:30 BP 110 / 80; Pulse 88; Resp 18; Pulse Ox 100% ; vc1 20:54 BP 120 / 90; Pulse 83; Resp 16; Temp 98.9; Pulse Ox 100% on R/A; jb5 21:22 BP 123 / 98; Pulse 92; Resp 16; Pulse Ox 100% ; vc1 18:29 Body Mass Index 18.55 (43.09 kg, 152.4 cm) ph MDM: 18:34 Patient medically screened. 19:00 Differential diagnosis: appendicitis, bowel obstruction, gastritis, gastroesophageal cp reflux disease, pancreatitis, Ureterolithiasis, urinary tract infection, choledocholithiasis. 21:22 Data reviewed: vital signs, nurses notes, lab test result(s), radiologic studies, CT cp scan. 21:22 I considered the following discharge prescriptions or medication management in the emergency department Medications were administered in the Emergency Department. See MAR. Counseling: I had a detailed discussion with the patient and/or guardian regarding: the historical points, exam findings, and any diagnostic results supporting the discharge/admit diagnosis, lab results, radiology results, to return to the emergency department if symptoms worsen or persist or if there are any questions or concerns that arise at home. Special discussion: Based on the patient's Hx, exam, and Dx evaluation, there is no indication for emergent surgery or inpatient Tx. It is understood by the patient/guardian that if the Sx's persist or worsen they need to return immediately for re-evaluation. 10/31 18:32 Order name: CBC with Diff; Complete Time: 19:47 cp 10/31 19:47 Interpretation: Normal except: HGB 11.1; HCT 33.8; MCV 79.7; MCH 26.3. cp 10/31 18:32 Order name: CMP; Complete Time: 19:57 cp 10/31 18:32 Order name: Lipase; Complete Time: 19:57 cp 10/31 18:32 Order name: Test, Urine; Complete Time: 19:57 cp 10/31 18:32 Order name: Urinalysis w/ reflexes; Complete Time: 19:57 cp 10/31 19:57 Order name: CT Abd/Pelvis - IV Contrast Only; Complete Time: 20:51 cp 10/31 20:51 Interpretation: Report reviewed. cp 10/31 18:32 Order name: IV Saline Lock; Complete Time: 19:29 cp 10/31 18:32 Order name: Labs collected and sent; Complete Time: 19:29 cp 10/31 20:56 Order name: PO challenge; Complete Time: 21:22 cp Administered Medications: 19:30 Drug: NS 0.9% IV 1000 ml Route: IV; Rate: 1 bolus; Site: right antecubital; vc1 19:30 Drug: Famotidine IVP 20 mg Route: IVP; Site: right antecubital; vc1 20:47 Follow up: Response: No adverse reaction; Marked relief of symptoms lg3 19:30 Drug: Ondansetron IVP 4 mg Route: IVP; Site: right antecubital; vc1 20:47 Follow up: Response: No adverse reaction; Marked relief of symptoms lg3 20:46 Drug: morphine IVP or IV 4 mg Route: IVP; Infused Over: 4 mins; Site: right antecubital;lg3 21:26 Follow up: Response: No adverse reaction; Marked relief of symptoms vc1 21:22 Drug: Potassium PO Effervescent Tablet 50 mEq Route: PO; vc1 21:26 Follow up: Response: Medication administered at discharge. vc1 Disposition: 11/01 14:25 Co-signature as Attending Physician, Humberto Nava MD I reviewed the patient's care rn provided by the Advanced Practice Provider and agree with the diagnosis and treatment plan. Disposition Summary: 10/31/22 21:22 Discharge Ordered Location: Home cp Problem: an ongoing problem cp Symptoms: have improved cp Condition: Stable cp Diagnosis - Upper abdominal pain, unspecified cp Followup: cp - With: Radha White MD - When: Tomorrow - Reason: Recheck today's complaints Discharge Instructions: - Discharge Summary Sheet cp - Abdominal Pain, Adult cp Forms: - Medication Reconciliation Form cp - Thank You Letter cp - Antibiotic Education cp - Prescription Opioid Use cp - Patient Portal Instructions cp Prescriptions: - Protonix 40 mg Oral Tablet - take 1 tablet by ORAL route once daily; 30 tablet; Refills: 0, Product cp Selection Permitted - Zofran 4 mg Oral Tablet - take 1 tablet by ORAL route every 12 hours As needed; 20 tablet; Refills: 0, cp Product Selection Permitted Signatures: Dispatcher [employer] EDHumberto Lopez MD MD rn Hall, Patricia, RN RN ph Page, Corey, PA PA cp Piedad Arthur RN RN lg3 Estephania Amin RN RN vc1
[2022-10-31] MEDS ORDERED: POTASSIUM 25 MEQ EFFERV TAB ONE (21:26)
[2022-10-31 21:36] VITALS: O2SAT 100
[2022-10-31 21:38] VITALS: TEMP 98.9
[2022-10-31 21:40] VITALS: BP 123/98
== END 2022-10-31 21:30 | disposition home or self-care (01) ==
LOC: ER 18:16
DX: R10.10 Upper abdominal pain, unspecified (principal); Z88.6 Allergy status to analgesic agent; Z91.040 Latex allergy status; Z91.048 Other nonmedicinal substance allergy status
CPT/HCPCS: 85025; 81001; 36415; 81025; 83690; 80053; 74177; Q9967; J2405; J7030

== ENCOUNTER 2022-11-29 10:56 | Emergency (ER) | payer OTHER ==
--- OUTSIDE RECORDS SUMMARY | 2022-11-29 11:11 | XMS REPORT | Continuity of Care Document ---
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 2009-11-24 Completed [facility] - ML 00:00:00 [facility] varicella - ML varicella - ML 2009-11-24 Completed [facility] 00:00:00 [facility] Tdap - ML Tdap - ML 2009-11-24 Completed [facility] 00:00:[facility] meningococcal MCV4P - meningococcal MCV4P 2009-11-24 Completed [facility] - ML 00:00:00 [facility] varicella - ML varicella - ML 2009-11-24 Completed [facility] 00:00:00 [facility] Tdap - ML Tdap - ML 2009-11-24 Completed [facility] 00:00:00 [facility] meningococcal MCV4P - meningococcal MCV4P 2009-11-24 Completed [facility] - ML 00:00:00 [facility] varicella - ML varicella - ML 2009-11-24 Completed [facility] 00:00:00 [facility] Tdap - ML Tdap - ML 2009-11-24 Completed [facility] 00:00:00 [facility] meningococcal MCV4P - meningococcal MCV4P 2009-11-24 Completed [facility] - ML 00:00:00 [facility] varicella - ML varicella - ML 2009-11-24 Completed [facility] 00:00:00 [facility] Tdap - ML Tdap - ML 2009-11-24 Completed [facility] 00:00:[facility] meningococcal MCV4P - meningococcal MCV4P 2009-11-24 Completed [facility] - ML 00:00:00 [facility] varicella - ML varicella - ML 2009-11-24 Completed [facility] 00:00:00 [facility] Tdap - ML Tdap - ML 2009-11-24 Completed [facility] 00:00:00 [facility] meningococcal MCV4P - meningococcal MCV4P 2009-11-24 Completed [facility] - ML 00:00:00 [facility] varicella - ML varicella - ML 2009-11-24 Completed [facility] 00:00:00 [facility] Tdap - ML Tdap - ML 2009-11-24 Completed [facility] 00:00:00 [facility] meningococcal MCV4P - meningococcal MCV4P 2009-11-24 Completed [facility] ML - ML 00:00:00 [facility] varicella - ML varicella - ML 2009-11-24 Completed [facility] 00:00:00 [facility] Tdap - ML Tdap - ML 2009-11-24 Completed [facility] 00:00:00 [facility] Tdap Tetanus, 2009-11-24 Completed [facility] diphtheria, acellular 00:00:00 pertussis Vaccine Varicella Vaccine [...] (Menactra) 00:00:00 Tdap Tetanus, 2009-11-24 Completed [facility] diphtheria, acellular 00:00:00 pertussis Vaccine Varicella Vaccine 2009-11-24 Completed [facility] 00:00:00 MCV4 Meningococcal 2009-11-24 Completed [facility] Conjugate (Menactra) 00:00:00 Tdap Tetanus, 2009-11-24 Completed [facility] diphtheria, acellular 00:00:00 pertussis Vaccine Varicella Vaccine 2009-11-24 Completed [facility] 00:00:00 MCV4 Meningococcal 2009-11-24 Completed [facility] Conjugate (Menactra) 00:00:00 Tdap Tetanus, 2009-11-24 Completed [facility] th diphtheria, acellular 00:00:00 pertussis Vaccine Varicella Vaccine 2009-11-24 Completed [facility] 00:00:00 MCV4 Meningococcal 2009-11-24 Completed [facility] Conjugate (Menactra) 00:00:00 DTaP, unspecified DTaP, unspecified 2001-12-02 Completed [facility] formulation - ML formulation - ML 00:00:00 Me [facility]ical Group MMR - ML MMR - ML 2001-12-02 Completed [facility] 00:00:00 [facility] IPV - ML IPV - ML 2001-12-02 Completed [facility] 00:00:00 [facility] DTaP, unspecified DTaP, unspecified 2001-12-02 Completed [facility] formulation - ML formulation - ML 00:00:00 Me dical Group MMR - ML MMR - ML 2001-12-02 Completed [facility] 00:00:00 [facility] IPV - ML IPV - ML 2001-12-02 Completed [facility] 00:00:00 [facility] DTaP, unspecified DTaP, unspecified 2001-12-02 Completed [facility] formulation - ML formulation - ML 00:00:00 Me dical Group MMR - ML MMR - ML 2001-12-02 Completed [facility] 00:00:00 [facility] IPV - ML IPV - ML 2001-12-02 Completed [facility] 00:00:00 [facility] DTaP, unspecified DTaP, unspecified 2001-12-02 Completed [facility] formulation - ML formulation - ML 00:00:00 Me [facility]ical Group MMR - ML MMR - ML 2001-12-02 Completed [facility] 00:00:00 [facility] IPV - ML IPV - ML 2001-12-02 Completed [facility] 00:00:00 [facility] DTaP, unspecified DTaP, unspecified 2001-12-02 Completed [facility] formulation - ML formulation - ML 00:00:00 Me dical Group MMR - ML MMR - ML 2001-12-02 Completed [facility] 00:00:00 [facility] IPV - ML IPV - ML 2001-12-02 Completed [facility] 00:00:00 [facility] DTaP, unspecified DTaP, unspecified 2001-12-02 Completed [facility] formulation - ML formulation - ML 00:00:00 Me dical Group MMR - ML MMR - ML 2001-12-02 Completed [facility] 00:00:00 [facility] IPV - ML IPV - ML 2001-12-02 Completed [facility] 00:00:00 [facility] DTaP, unspecified DTaP, unspecified 2001-12-02 Completed [facility] formulation - ML formulation - ML 00:00:00 Me dical Group MMR - ML MMR - ML 2001-12-02 Completed [facility] 00:00:00 [facility] IPV - ML IPV - ML 2001-12-02 Completed [facility] 00:00:00 [facility] DTaP, unspecified DTaP, unspecified 2001-12-02 Completed [facility] formulation - ML formulation - ML 00:00:00 Me dical Group MMR - ML MMR - ML 2001-12-02 Completed [facility] 00:00:00 [facility] IPV - ML IPV - ML 2001-12-02 Completed [facility] 00:00:00 [facility] DTaP, unspecified DTaP, unspecified 2001-12-02 Completed [facility] formulation - ML formulation - ML 00:00:00 Me dical Group MMR - ML MMR - ML 2001-12-02 Completed [facility] 00:00:00 [facility] IPV - ML IPV - ML 2001-12-02 Completed [facility] 00:00:[facility] DTaP Diphtheria, 2001-12-02 [facility] Influenzae Type B 00:00:00 DTaP Diphtheria, 2001-12-02 Completed [facility] Tetanus, Acellular, 00:00:00 Pertussis Hib Haemophilus 2001-12-02 Completed [facility] Influenzae Type B 00:00:00 Poliovirus Ipv 2001-12-02 [facility] Poliovirus Ipv 2001-12-02 [facility] 00:[facility]:00 DTaP Diphtheria, 2001-12-02 Com[facility] Tetanus, Acellular, 00:00:00 Pertussis Hib Haemophilus 2001-12-02 Completed [facility] Influenzae Type B 00:00:00 Poliovirus Ipv 2001-12-02 [facility] 00[facility]:00 DTaP Diphtheria, 2001-12-02 Completed [facility] Tetanus, Acellular, 00:00:00 Pertussis Hib Haemophilus 2001-12-02 Completed [facility] Influenzae Type B 00:00:00 Poliovirus Ipv 2001-12-02 Completed [facility] 00:[facility]:00 Hep B, adolescent or Hep B, adolescent or 2000-12-09 Completed [facility] - ML pediatric - ML 00:00:00 Medica l Group Hep B, adolescent or Hep B, adolescent or 2000-12-09 Completed [facility] - ML pediatric - ML 00:00:00 Medica l Group Hep B, adolescent or Hep B, adolescent or 2000-12-09 Completed [facility] - ML pediatric - ML 00:00:00 Medica l Group Hep B, adolescent or Hep B, adolescent or 2000-12-09 Completed [facility] - ML pediatric - ML 00:00:00 Medica l Group Hep B, adolescent or Hep B, adolescent or 2000-12-09 Completed [facility] - ML pediatric - ML 00:00:00 Medica l Group Hep B, adolescent or Hep B, adolescent or 2000-12-09 Completed [facility] - ML pediatric - ML 00:00:00 Medica l Group Hep B, adolescent or Hep B, adolescent or 2000-12-09 Completed [facility] - ML pediatric - ML 00:00:00 Medica l Group Hep B, adolescent or Hep B, adolescent or 2000-12-09 Completed [facility] - ML pediatric - ML 00:00:00 Medica l Group Hep B, adolescent or Hep B, adolescent or 2000-12-09 Completed [facility] - ML pediatric - ML 00:00:00 Medica l Group Hepatitis B Vaccine 2000-12-09 Completed [facility] 00:00:00 Hepatitis B Vaccine 2000-12-09 Completed [facility] 00:00:00 Hepatitis B Vaccine 2000-12-09 Completed [facility] 00:00:00 Hepatitis B Vaccine 2000-12-09 Completed [facility] 00:00:00 Hepatitis B Vaccine 2000-12-09 Completed [email or web address] 00:00:00 Hepatitis B Vaccine 2000-12-09 Completed [facility] 00:00:00 Hepatitis B Vaccine 2000-12-09 Completed [facility] 00:00:00 Hepatitis B Vaccine 2000-12-09 Completed [facility] 00:00:00 Hepatitis B Vaccine 2000-12-09 Completed [facility] 00:00:00 Hepatitis B Vaccine 2000-12-09 Com[facility] 00[facility]00:00 Hepatitis B Vaccine 2000-12-09 Completed [facility] 00:00:00 Hepatitis B Vaccine 2000-12-09 Completed [facility] 00:00:00 Hepatitis B Vaccine 2000-12-09 Completed [facility] 00:00:00 Hepatitis B Vaccine 2000-12-09 Completed [facility] 00:00:00 DTaP-Hib - ML DTaP-Hib - ML 1998-12-02 Completed [facility] OPV - ML OPV - ML 1998-12-02 Completed [facility] 00:00:[facility] DTaP-Hib - ML DTaP-Hib - ML 1998-12-02 Completed [facility] 00:[facility] OPV - ML OPV - ML 1998-12-02 Completed [facility] 00:00:00 [facility] DTaP-Hib - ML DTaP-Hib - ML 1998-12-02 Completed [facility] 00:[facility] OPV - ML OPV - ML 1998-12-02 Completed [facility] 00:00:00 [facility] DTaP-Hib - ML DTaP-Hib - ML 1998-12-02 Completed [facility] 00:[facility] OPV - ML OPV - ML 1998-12-02 Completed [facility] 00:00:00 [facility] DTaP-Hib - ML DTaP-Hib - ML 1998-12-02 Completed [facility] 00:[facility] OPV - ML OPV - ML 1998-12-02 Completed [facility] 00:00:00 [facility] DTaP-Hib - ML DTaP-Hib - ML 1998-12-02 Completed [facility] 00:00:[facility] OPV - ML OPV - ML 1998-12-02 Completed [facility] 00:00:00 [facility] DTaP-Hib - ML DTaP-Hib - ML 1998-12-02 Completed [facility] 00:[facility] OPV - ML OPV - ML 1998-12-02 Completed [facility] 00:00:00 [facility] DTaP-Hib - ML DTaP-Hib - ML 1998-12-02 Completed [facility] 00:00:[facility] OPV - ML OPV - ML 1998-12-02 Completed [facility] 00:00:00 [facility] DTaP-Hib - ML DTaP-Hib - ML 1998-12-02 Completed [facility] 00:[facility] OPV - ML OPV - ML 1998-12-02 Completed [facility] 00:00:00 [facility] Poliovirus Ipv 1998-12-02 Com[facility] [...] ML varicella - ML 1998-08-31 Completed [facility] 00:00:00 [facility] Group MMR - ML MMR - ML 1998-08-31 Completed [facility] 00:00:00 [facility] varicella - ML varicella - ML 1998-08-31 Completed [facility] 00:00:00 [facility] MMR - ML MMR - ML 1998-08-31 Completed [facility] 00:00:00 [facility] varicella - ML varicella - ML 1998-08-31 Completed [facility] 00:00:00 [facility] Group MMR - ML MMR - ML 1998-08-31 Completed [facility] 00:00:00 [facility] varicella - ML varicella - ML 1998-08-31 Completed [facility] 00:00:00 [facility] Group MMR - ML MMR - ML 1998-08-31 Completed [facility] 00:00:00 [facility] varicella - ML varicella - ML 1998-08-31 Completed [facility] 00:00:00 [facility] Group MMR - ML MMR - ML 1998-08-31 Completed [facility] 00:00:00 [facility] varicella - ML varicella - ML 1998-08-31 Completed [facility] 00:00:00 [facility] Group MMR - ML MMR - ML 1998-08-31 Completed [facility] 00:00:00 [facility] varicella - ML varicella - ML 1998-08-31 Completed [facility] 00:00:00 [facility] Group MMR - ML MMR - ML 1998-08-31 Completed [facility] 00:00:00 [facility] varicella - ML varicella - ML 1998-08-31 Completed [facility] 00:00:00 [facility] Group MMR - ML MMR - ML 1998-08-31 Completed [facility] 00:00:00 [facility] varicella - ML varicella - ML 1998-08-31 Completed [facility] 00:00:00 [facility] Group MMR - ML MMR - ML 1998-08-31 Completed [facility] 00:00:[facility] Hib Haemophilus 1998-08-31 Completed [facility] Influenzae Type B 00:00:00 Varicella Vaccine 1998-08-31 Completed [facility] 00:00:00 Hib Haemophilus 1998-08-31 Completed [facility] Influenzae Type B 00:00:00 Varicella Vaccine 1998-08-31 Completed [facility] 00:00:00 Hib Haemophilus 1998-08-31 Completed [facility] Influenzae Type B 00:00:00 Varicella Vaccine 1998-08-31 Completed [facility] 00:00:00 Hib Haemophilus 1998-08-31 Completed [facility] Influenzae Type B 00:00:00 Varicella Vaccine 1998-08-31 Completed [facility] 00:00:00 Hib Haemophilus 1998-08-31 Completed [facility] Influenzae Type B 00:00:00 Varicella Vaccine 1998-08-31 Completed [facility] 00:00:00 Hib Haemophilus 1998-08-31 Completed [facility] Influenzae Type B 00:00:00 Varicella Vaccine 1998-08-31 Completed [facility] 00:00:00 Hib Haemophilus 1998-08-31 Completed [facility] alth Influenzae Type B 00:00:00 Varicella Vaccine 1998-08-31 Completed [facility] 00:00:00 Hib Haemophilus 1998-08-31 Completed [facility] alth Influenzae Type B 00:00:00 Varicella Vaccine 1998-08-31 Completed [facility] 00:00:00 Hib Haemophilus 1998-08-31 Completed [facility] alth Influenzae Type B 00:00:00 Varicella Vaccine 1998-08-31 Completed [facility] 00:00:00 Hib Haemophilus 1998-08-31 Completed [facility] alth Influenzae Type B 00:00:00 Hib Haemophilus 1998-08-31 Completed [facility] alth Influenzae Type B 00:00:00 Varicella Vaccine 1998-08-31 Completed [facility] 00:00:00 Hib Haemophilus 1998-08-31 Completed [facility] alth Influenzae Type B 00:00:00 Varicella Vaccine 1998-08-31 Completed [facility] 00:00:00 Varicella Vaccine 1998-08-31 Completed [facility] 00:00:00 Hib Haemophilus 1998-08-31 Completed [facility] alth Influenzae Type B 00:00:00 Varicella Vaccine 1998-08-31 Completed [facility] 00:00:00 Hib Haemophilus 1998-08-31 Completed [facility] alth Influenzae Type B 00:00:00 Varicella Vaccine 1998-08-31 Completed [facility] 00:00:00 DTaP, unspecified DTaP, unspecified 1998-03-04 Completed [facility] formulation - ML formulation - ML 00:00:00 Me dical Group DTaP, unspecified DTaP, unspecified 1998-03-04 Completed [facility] formulation - ML formulation - ML 00:00:00 Me dical Group DTaP, unspecified DTaP, unspecified 1998-03-04 Completed [facility] formulation - ML formulation - ML 00:00:00 Me dical Group DTaP, unspecified DTaP, unspecified 1998-03-04 Completed [facility] formulation - ML formulation - ML 00:00:00 Me dical Group DTaP, unspecified DTaP, unspecified 1998-03-04 Completed [facility] formulation - ML formulation - ML 00:00:00 Me dical Group DTaP, unspecified DTaP, unspecified 1998-03-04 Completed [facility] formulation - ML formulation - ML 00:00:00 Me dical Group DTaP, unspecified DTaP, unspecified 1998-03-04 Completed [facility] formulation - ML formulation - ML 00:00:00 Me dical Group DTaP, unspecified DTaP, unspecified 1998-03-04 Completed [facility] formulation - ML formulation - ML 00:00:00 Me dical Group DTaP, unspecified DTaP, unspecified 1998-03-04 Completed [facility] formulation - ML formulation - ML 00:00:00 [...] Acellular, 00:00:00 Pertussis DTaP Diphtheria, 1998-03-04 Completed [facility] Tetanus, Acellular, 00:00:00 Pertussis DTaP Diphtheria, 1998-03-04 Completed [facility]alth Tetanus, Acellular, 00:00:00 Pertussis DTaP, unspecified DTaP, unspecified 1997 Completed [facility] formulation - ML formulation - ML 00:00:00 Me dical Group IPV - ML IPV - ML 1997 Completed [facility] 00:00:[facility] DTaP, unspecified DTaP, unspecified 1997 Completed [facility] formulation - ML formulation - ML 00:00:00 Me dical Group IPV - ML IPV - ML 1997 Completed [facility] 00:00:00 [facility] DTaP, unspecified DTaP, unspecified 1997 Completed [facility] formulation - ML formulation - ML 00:00:00 Me dical Group IPV - ML IPV - ML 1997 Completed [facility] 00:00:00 [facility] DTaP, unspecified DTaP, unspecified 1997 Completed [facility] formulation - ML formulation - ML 00:00:00 Me dical Group IPV - ML IPV - ML 1997 Completed [facility] 00:00:00 [facility] DTaP, unspecified DTaP, unspecified 1997 Completed [facility] formulation - ML formulation - ML 00:00:00 Me dical Group IPV - ML IPV - ML 1997 Completed [facility] 00:00:00 [facility] DTaP, unspecified DTaP, unspecified 1997 Completed [facility] formulation - ML formulation - ML 00:00:00 Me dical Group IPV - ML IPV - ML 1997 Completed [facility] 00:00:00 [facility] DTaP, unspecified DTaP, unspecified 1997 Completed [facility] formulation - ML formulation - ML 00:00:00 Me dical Group IPV - ML IPV - ML 1997 Completed [facility] 00[facility]00:00 [facility] DTaP, unspecified DTaP, unspecified 1997 Completed [facility] formulation - ML formulation - ML 00:00:00 Me dical Group IPV - ML IPV - ML 1997 Completed [facility] 00:00:00 [facility] DTaP, unspecified DTaP, unspecified 1997 Completed [facility] formulation - ML formulation - ML 00:00:00 Me dical Group IPV - ML IPV - ML 1997 Completed [facility] 00:00:00 [facility] DTaP Diphtheria, 1997 Completed [...] 00:00:00 DTaP, unspecified DTaP, unspecified 1997 Completed [facility] formulation - ML formulation - ML 00:00:00 Me dical Group Hep B, adolescent or Hep B, adolescent or 1997 Completed [facility] - ML pediatric - ML 00:00:00 Medica l Group IPV - ML IPV - ML 1997 Completed [facility] 00:00:00 [facility] DTaP, unspecified DTaP, unspecified 1997 Completed [facility] formulation - ML formulation - ML 00:00:00 Me dical Group Hep B, adolescent or Hep B, adolescent or 1997 Completed [facility] - ML pediatric - ML 00:00:00 Medica l Group IPV - ML IPV - ML 1997 Completed [facility] 00:00:00 [facility] DTaP, unspecified DTaP, unspecified 1997 Completed [facility] formulation - ML formulation - ML 00:00:00 Me dical Group Hep B, adolescent or Hep B, adolescent or 1997 Completed [facility] - ML pediatric - ML 00:00:00 Medica l Group IPV - ML IPV - ML 1997 Completed [facility] 00:00:00 [facility] DTaP, unspecified DTaP, unspecified 1997 Completed [facility] formulation - ML formulation - ML 00:00:00 Me dical Group Hep B, adolescent or Hep B, adolescent or 1997 Completed [facility] - ML pediatric - ML 00:00:00 Medica l Group IPV - ML IPV - ML 1997 Completed [facility] 00:00:00 [facility] DTaP, unspecified DTaP, unspecified 1997 Completed [facility] formulation - ML formulation - ML 00:00:00 Me dical Group Hep B, adolescent or Hep B, adolescent or 1997 Completed [facility] - ML pediatric - ML 00:00:00 Medica l Group IPV - ML IPV - ML 1997 Completed [facility] 00:00:00 [facility] DTaP, unspecified DTaP, unspecified 1997 Completed [facility] formulation - ML formulation - ML 00:00:00 Me dical Group Hep B, adolescent or Hep B, adolescent or 1997 Completed [facility] - ML pediatric - ML 00:00:00 Medica l Group IPV - ML IPV - ML 1997 Completed [facility] 00:00:00 [facility] DTaP, unspecified DTaP, unspecified 1997 Completed [facility] formulation - ML formulation - ML 00:00:00 Sd dical Group Hep B, adolescent or Hep B, adolescent or 1997 Completed [facility] - ML pediatric - ML 00:00:00 Medica l Group IPV - ML IPV - ML 1997 Completed [facility] 00:00:00 [facility] DTaP, unspecified DTaP, unspecified 1997 Completed [facility] formulation - ML formulation - ML 00:00:00 Me dical Group Hep B, adolescent or Hep B, adolescent or 1997 Completed [facility] - ML pediatric - ML 00:00:00 Medica l Group IPV - ML IPV - ML 1997 Completed [facility] 00:00:00 [facility] DTaP, unspecified DTaP, unspecified 1997 Completed [facility] formulation - ML formulation - ML 00:00:00 Me dical Group Hep B, adolescent or Hep B, adolescent or 1997 Completed [facility] - ML pediatric - ML 00:00:00 Medica l Group IPV - ML IPV - ML 1997 Completed [facility] 00:00:[facility] DTaP Diphtheria, 1997 Completed [facility] Tetanus, Acellular, 00:00:00 Pertussis Poliovirus Ipv 1997 Completed [facility] 00:[facility] Hepatitis B Vaccine 1997 Com[facility] 00:00:00 DTaP Diphtheria, 1997 Completed [facility] Tetanus, Acellular, 00:00:00 Pertussis Poliovirus Ipv 1997 Completed [facility] 00:[facility]:00 Hepatitis B Vaccine 1997 Completed [facility] 00:00:00 DTaP Diphtheria, 1997 Completed [facility] Tetanus, Acellular, 00:00:00 Pertussis Poliovirus Ipv 1997 Completed [facility] 00:[facility]:00 Hepatitis B Vaccine 1997 Completed [facility] 00:00:00 DTaP Diphtheria, 1997 Completed [facility] Tetanus, Acellular, 00:00:00 Pertussis Poliovirus Ipv 1997 Completed [facility] 00:00:00 Hepatitis B Vaccine 1997 Completed [facility] 00:00:00 DTaP Diphtheria, 1997 Completed [facility] Tetanus, Acellular, 00:00:00 Pertussis Poliovirus Ipv 1997 Completed [facility] 00:00:00 Hepatitis B Vaccine 1997 Completed [facility] 00:00:00 DTaP Diphtheria, 1997 Completed [facility] Tetanus, Acellular, 00:00:00 Pertussis Poliovirus Ipv 1997 Completed [facility] 00:00:00 Hepatitis B Vaccine 1997 Completed [facility] 00:00:00 DTaP Diphtheria, 1997 Completed [facility] Tetanus, Acellular, 00:00:00 Pertussis Poliovirus Ipv 1997 Completed [facility] 00:[facility]:00 Hepatitis B Vaccine 1997 [facility] 00:00:00 DTaP Diphtheria, 1997 Completed [facility] Tetanus, Acellular, 00:00:00 Pertussis DTaP Diphtheria, 1997 Completed [facility] Tetanus, Acellular, 00:00:00 Pertussis Poliovirus Ipv 1997 Com[facility] 00:[facility]:00 Hepatitis B Vaccine 1997 Completed [facility] 00:00:00 DTaP Diphtheria, 1997 Completed [facility] Tetanus, Acellular, 00:00:00 Pertussis Poliovirus Ipv 1997 Com[facility] 00:[facility]:00 Hepatitis B Vaccine 1997 Completed [facility] 00:00:00 DTaP Diphtheria, 1997 Completed [facility] Tetanus, Acellular, 00:00:00 Pertussis Poliovirus Ipv 1997 Completed [facility] 00:[facility]:00 Hepatitis B Vaccine 1997 Completed [facility] 00:00:00 Poliovirus Ipv 1997 Com[facility] 00:00:00 DTaP Diphtheria, 1997 Com[facility] Tetanus, Acellular, 00:00:00 Pertussis Poliovirus Ipv 1997 Com[facility] 00:[facility]:00 Hepatitis B Vaccine 1997 Completed [facility] 00:00:00 Hepatitis B Vaccine 1997 Completed [facility] 00:00:00 DTaP Diphtheria, 1997 Completed [facility] Tetanus, Acellular, 00:00:00 Pertussis Poliovirus Ipv 1997 Com[facility] 00:[facility]:00 Hepatitis B Vaccine 1997 Completed [facility] 00:00:00 DTaP Diphtheria, 1997 Completed [facility] Tetanus, Acellular, 00:00:00 Pertussis Poliovirus Ipv 1997 Completed [facility] 00:[facility] Hepatitis B Vaccine 1997 Completed [facility] 00:00:00 Hep B, adolescent or Hep B, adolescent or 1997 Completed [facility] - ML pediatric - ML 00:00:00 Medica l Group Hep B, adolescent or Hep B, adolescent or 1997 Completed [facility] - ML pediatric - ML 00:00:00 Medica l Group Hep B, adolescent or Hep B, adolescent or 1997 Completed [facility] - ML pediatric - ML 00:00:00 Medica l Group Hep B, adolescent or Hep B, adolescent or 1997 Completed [facility] 00:[facility]:00 [facility] Hep B, adolescent or Hep B, adolescent or 1997 Completed [facility] - [facility] 00:00:00 [facility] Hep B, adolescent or Hep B, adolescent or 1997 Completed [facility] - [facility] 00:00:00 [facility] Hep B, adolescent or Hep B, adolescent or 1997 Completed [facility] - [facility] 00:00:00 [facility] Hep B, adolescent or Hep B, adolescent or 1997 Completed [facility] - [facility] 00:00:00 [facility] Group Hep B, adolescent or Hep B, adolescent or 1997 Completed [facility] - [facility] 00:00:00 [facility]ica l Group Hepatitis B Vaccine 1997 Completed [facility] 00:00:00 Hepatitis B Vaccine 1997 Completed [facility] 00:00:00 Hep B, adolescent or Hep B, adolescent or 1997 Completed [facility] - [facility] 00:00:00 Medica l Group Hep B, adolescent or Hep B, adolescent or 1997 Completed [facility] - [facility] 00:00:00 [facility] l Group Hep B, adolescent or Hep B, adolescent or 1997 Completed [facility] - [facility] 00:00:00 [facility] Group Hep B, adolescent or Hep B, adolescent or 1997 Completed [facility] - [facility] 00:00:00 [facility] Group Hep B, adolescent or Hep B, adolescent or 1997 Completed [facility] - [facility] 00:00:00 [facility] l Group Hep B, adolescent or Hep B, adolescent or 1997 Completed [facility] - [facility] 00:00:00 [facility] Group Hep B, adolescent or Hep B, adolescent or 1997 Completed [facility] - [facility] 00:00:00 [facility] Group Hep B, adolescent or Hep B, adolescent or 1997 Completed [facility] - [facility] 00:00:00 [facility] Hep B, adolescent or Hep B, adolescent or 1997 Completed [facility] - [facility] 00:00:00 [facility] Vital Signs Vital Name Observation Time Observation Value Comments Source BP Diastolic 2022-10-08 00:00:00 79 mm[Hg] [facility] Height 2022-10-08 00:00:00 60 [in_i] [facility] BMI (Body Mass 2022-10-08 00:00:00 17.2 kg/m2 [facility] BP Systolic 2022-10-08 00:00:00 114 mm[Hg] [facility] Body Weight 2022-10-08 00:00:00 1408 [oz_av] [facility] Height 2022-08-27 00:00:00 60 [in_i] [facility] BMI (Body Mass 2022-08-27 00:00:00 16.6 kg/m2 [facility] Body Weight 2022-08-27 00:00:00 1360 [oz_av] [facility] Height 2022-08-09 00:00:00 60 [in_i] [facility] BP Diastolic 2022-08-09 00:00:00 82 mm[Hg] [facility] BMI (Body Mass 2022-08-09 00:00:00 16.6 kg/m2 [facility]) [facility] BP Systolic 2022-08-09 00:00:00 170 mm[Hg] [facility] Body Weight 2022-08-09 00:00:00 85 [lb_av] [facility] Height 2022-07-30 00:00:00 60 [in_i] [facility] BMI (Body Mass 2022-07-30 00:00:00 16.4 kg/m2 [facility] Body Weight 2022-07-30 00:00:00 1344 [oz_av] [facility] HEIGHT 2022-07-27 22:03:00 152.4 cm WEIGHT 2022-07-27 22:03:00 39.009 kg HEIGHT 2022-07-27 22:03:00 152.4 cm WEIGHT 2022-07-27 22:03:00 39.009 kg HEIGHT 2022-07-27 22:03:00 152.4 cm WEIGHT 2022-07-27 22:03:00 39.009 kg Systolic blood 2022-07-13 21:02:00 111 mm[Hg] [facility] s[facility] of pressure [facility] Diastolic blood 2022-07-13 21:02:00 74 mm[Hg] Unive rsity of pressure [facility] Heart rate 2022-07-13 21:02:00 68 /[facility] Respiratory rate 2022-07-13 21:02:00 19 /[facility] 2022-07-13 21:02:00 100 /min [facility] Arterial blood by [facility] Pulse oximetry Branch Body temperature 2022-07-13 13:24:00 37.22 [facility] Body height 2022-07-13 13:24:00 152.4 cm [facility] Body weight 2022-07-13 13:24:00 38.102 kg [facility] BMI 2022-07-13 13:24:00 16.41 kg/m2 [facility] BP Diastolic 2022-07-06 00:00:00 76 mm[Hg] [facility] Height 2022-07-06 00:00:00 60 [in_i] [facility] BMI (Body Mass 2022-07-06 00:00:00 17.5 kg/m2 [facility] BP Systolic 2022-07-06 00:00:00 123 mm[Hg] [facility] Body Weight 2022-07-06 00:00:00 89.5 [lb_av] [facility] Height 2022-07-05 00:00:00 60 [in_i] [facility] BP Diastolic 2022-06-25 00:00:00 78 mm[Hg] [facility] Height 2022-06-25 00:00:00 60 [in_i] [facility] BMI (Body Mass 2022-06-25 00:00:00 17.5 kg/m2 [facility] BP Systolic 2022-06-25 00:00:00 121 mm[Hg] [facility] Body Weight 2022-06-25 00:00:00 89.5 [lb_av] [facility] BP Diastolic 2022-06-07 00:00:00 73 mm[Hg] [facility] Height 2022-06-07 00:00:00 60 [in_i] [facility] BMI (Body Mass 2022-06-07 00:00:00 17 kg/m2 [facility]) [facility] BP Systolic 2022-06-07 00:00:00 109 mm[Hg] [facility] Body Weight 2022-06-07 00:00:00 87 [lb_av] [facility] BP Diastolic 2022-06-04 00:00:00 84 mm[Hg] [facility] Height 2022-06-04 00:00:00 60 [in_i] [facility] BMI (Body Mass 2022-06-04 00:00:00 17.5 kg/m2 [facility] Medical Index) Group BP Systolic 2022-06-04 00:00:00 119 mm[Hg] [facility] Body Weight 2022-06-04 00:00:00 1432 [oz_av] [facility] BP Diastolic 2022-05-18 00:00:00 65 mm[Hg] [facility] Height 2022-05-18 00:00:00 60 [in_i] [facility] BMI (Body Mass 2022-05-18 00:00:00 17.4 kg/m2 [facility] Medical Index) Group BP Systolic 2022-05-18 00:00:00 95 mm[Hg] [facility] Body Weight 2022-05-18 00:00:00 1429 [oz_av] [facility] Height 2022-05-15 00:00:00 60 [in_i] [facility] BMI (Body Mass 2022-05-15 00:00:00 17.4 kg/m2 [facility] Medical Index) Group Body Weight 2022-05-15 00:00:00 1429 [oz_av] [facility] BP Diastolic 2022-02-20 00:00:00 62 mm[Hg] [facility] Height 2022-02-20 00:00:00 60 [in_i] [facility] BMI (Body Mass 2022-02-20 00:00:00 18.6 kg/m2 [facility] Medical Index) Group BP Systolic 2022-02-20 00:00:00 101 mm[Hg] [facility] Body Weight 2022-02-20 00:00:00 1520 [oz_av] [facility] BP Diastolic 2022-01-17 00:00:00 73 mm[Hg] [facility] Height 2022-01-17 00:00:00 60 [in_i] [facility] BMI (Body Mass 2022-01-17 00:00:00 17.6 kg/m2 [facility] BP Systolic 2022-01-17 00:00:00 114 mm[Hg] [facility] Body Weight 2022-01-17 00:00:00 1440 [oz_av] [facility] Systolic blood 2022-01-05 21:03:00 123 mm[Hg] Univer sity of pressure [facility] Diastolic blood 2022-01-05 21:03:00 84 mm[Hg] Unive rsity of pressure [facility] Heart rate 2022-01-05 21:03:00 76 /min [facility] Body height 2022-01-05 21:03:00 152.4 cm [facility] Body weight 2022-01-05 21:03:00 40.824 kg [facility] BMI 2022-01-05 21:03:00 17.58 kg/m2 [facility] Oxygen saturation in 2022-01-05 21:03:00 100 /min [facility] Arterial blood by [facility] Pulse oximetry Branch BP Diastolic 2022-01-04 00:00:00 71 mm[Hg] [facility] Height 2022-01-04 00:00:00 60 [in_i] [facility] BMI (Body Mass 2022-01-04 00:00:00 18.4 kg/m2 [facility] BP Systolic 2022-01-04 00:00:00 117 mm[Hg] [facility] Body Weight 2022-01-04 00:00:00 1504 [oz_av] [facility] BP Diastolic 2021-10-23 00:00:00 74 mm[Hg] [facility] Height 2021-10-23 00:00:00 60 [in_i] [facility] BMI (Body Mass 2021-10-23 00:00:00 17.4 kg/m2 [facility] BP Systolic 2021-10-23 00:00:00 102 mm[Hg] [facility] Body Weight 2021-10-23 00:00:00 1428.8 [oz_av] [facility] BP Diastolic 2021-10-05 00:00:00 71 mm[Hg] [facility] Height 2021-10-05 00:00:00 60 [in_i] [facility] BMI (Body Mass 2021-10-05 00:00:00 16.9 kg/m2 [facility] BP Systolic 2021-10-05 00:00:00 103 mm[Hg] [facility] Body Weight 2021-10-05 00:00:00 1382.4 [oz_av] [facility] BP Diastolic 2021-09-14 00:00:00 79 mm[Hg] [facility] Height 2021-09-14 00:00:00 60 [in_i] [facility] BMI (Body Mass 2021-09-14 00:00:00 16.2 kg/m2 [facility] BP Systolic 2021-09-14 00:00:00 112 mm[Hg] [facility] Body Weight 2021-09-14 00:00:00 1324.8 [oz_av] [facility] BP Diastolic 2021-09-05 00:00:00 76 mm[Hg] [facility] Height 2021-09-05 00:00:00 60 [in_i] [facility] BMI (Body Mass 2021-09-05 00:00:00 17.4 kg/m2 [facility] BP Systolic 2021-09-05 00:00:00 114 mm[Hg] [facility] Body Weight 2021-09-05 00:00:00 89.1 [lb_av] [facility] BP Diastolic 2021-07-27 00:00:00 78 mm[Hg] [facility] Height 2021-07-27 00:00:00 60 [in_i] [facility] BMI (Body Mass 2021-07-27 00:00:00 17.7 kg/m2 [facility] Index) Group BP Systolic 2021-07-27 00:00:00 114 mm[Hg] [facility] Body Weight 2021-07-27 00:00:00 1448 [oz_av] [facility] BP Diastolic 2021-07-25 00:00:00 82 mm[Hg] [facility] Height 2021-07-25 00:00:00 60 [in_i] [facility] BMI (Body Mass 2021-07-25 00:00:00 17.9 kg/m2 [facility] Index) Group BP Systolic 2021-07-25 00:00:00 116 mm[Hg] [facility] Body Weight 2021-07-25 00:00:00 91.5 [lb_av] [facility] BP Diastolic 2021-07-24 00:00:00 76 mm[Hg] [facility] Height 2021-07-24 00:00:00 60 [in_i] [facility] BMI (Body Mass 2021-07-24 00:00:00 17.8 kg/m2 [facility] Index) Group BP Systolic 2021-07-24 00:00:00 112 mm[Hg] [facility] Body Weight 2021-07-24 00:00:00 1457.6 [oz_av] [facility] BP Diastolic 2021-07-12 00:00:00 76 mm[Hg] [facility] Height 2021-07-12 00:00:00 60 [in_i] [facility] BMI (Body Mass 2021-07-12 00:00:00 19.2 kg/m2 [facility] Index) Group BP Systolic 2021-07-12 00:00:00 110 mm[Hg] [facility] Body Weight 2021-07-12 00:00:00 1576 [oz_av] [facility] BP Diastolic 2021-06-21 00:00:00 80 mm[Hg] [facility] Height 2021-06-21 00:00:00 60 [in_i] [facility] BMI (Body Mass 2021-06-21 00:00:00 18.4 kg/m2 [facility] Index) Group BP Systolic 2021-06-21 00:00:00 108 mm[Hg] [facility] Body Weight 2021-06-21 00:00:00 1504 [oz_av] [facility] BP Diastolic 2021-06-02 00:00:00 73 mm[Hg] [facility] Height 2021-06-02 00:00:00 60 [in_i] [facility] BMI (Body Mass 2021-06-02 00:00:00 20.3 kg/m2 [facility]) Group BP Systolic 2021-06-02 00:00:00 122 mm[Hg] [facility] Body Weight 2021-06-02 00:00:00 1664 [oz_av] [facility] BP Diastolic 2021-05-22 00:00:00 73 mm[Hg] [facility] Height 2021-05-22 00:00:00 60 [in_i] [facility] BMI (Body Mass 2021-05-22 00:00:00 19.5 kg/m2 [facility] Index) Group BP Systolic 2021-05-22 00:00:00 112 mm[Hg] [facility] Body Weight 2021-05-22 00:00:00 1598.4 [oz_av] [facility] BP Diastolic 2021-05-09 00:00:00 75 mm[Hg] [facility] Height 2021-05-09 00:00:00 60 [in_i] [facility] BMI (Body Mass 2021-05-09 00:00:00 20 kg/m2 [facility] Index) Group BP Systolic 2021-05-09 00:00:00 122 mm[Hg] [facility] Body Weight 2021-05-09 00:00:00 1640 [oz_av] [facility] BP Diastolic 2021-03-23 00:00:00 69 mm[Hg] [facility] Height 2021-03-23 00:00:00 60 [in_i] [facility] BMI (Body Mass 2021-03-23 00:00:00 19.9 kg/m2 [facility] BP Systolic 2021-03-23 00:00:00 103 mm[Hg] [facility] Body Weight 2021-03-23 00:00:00 1627.2 [oz_av] [facility] BP Diastolic 2019-10-30 00:00:00 73 mm[Hg] [facility] Height 2019-10-30 00:00:00 61 [in_i] [facility] BMI (Body Mass 2019-10-30 00:00:00 17.4 kg/m2 [facility] BP Systolic 2019-10-30 00:00:00 105 mm[Hg] [facility] Body Weight 2019-10-30 00:00:00 91.9 [lb_av] [facility] BP Diastolic 2019-07-01 00:00:00 82 mm[Hg] [facility] Height 2019-07-01 00:00:00 61 [in_i] [facility] BMI (Body Mass 2019-07-01 00:00:00 17 kg/m2 [facility] BP Systolic 2019-07-01 00:00:00 119 mm[Hg] [facility] Body Weight 2019-07-01 00:00:00 90 [lb_av] [facility] BP Diastolic 2019-06-10 00:00:00 73 mm[Hg] [facility] Height 2019-06-10 00:00:00 61 [in_i] [facility] BMI (Body Mass 2019-06-10 00:00:00 18.9 kg/m2 [facility] cuff [facility] Index) Group BP Systolic 2019-06-10 00:00:00 111 mm[Hg] [facility] Body Weight 2019-06-10 00:00:00 100 [lb_av] [facility] BP Diastolic 2019-05-20 00:00:00 48 mm[Hg] [facility] Height 2019-05-20 00:00:00 61 [in_i] [facility] BMI (Body Mass 2019-05-20 00:00:00 18.9 kg/m2 [facility] BP Systolic 2019-05-20 00:00:00 117 mm[Hg] [facility] Body Weight 2019-05-20 00:00:00 100.1 [lb_av] [facility] BP Diastolic 2019-04-28 00:00:00 73 mm[Hg] [facility] Height 2019-04-28 00:00:00 61 [in_i] [facility] BMI (Body Mass 2019-04-28 00:00:00 19.9 kg/m2 [facility] cuff [facility] Medical Index) Group BP Systolic 2019-04-28 00:00:00 140 mm[Hg] [facility] Body Weight 2019-04-28 00:00:00 105.4 [lb_av] [facility] BP Diastolic 2019-04-24 00:00:00 57 mm[Hg] [facility] Height 2019-04-24 00:00:00 61 [in_i] [facility] BMI (Body Mass 2019-04-24 00:00:00 20 kg/m2 [facility] cuff [facility] Index) Group BP Systolic 2019-04-24 00:00:00 120 mm[Hg] [facility] Body Weight 2019-04-24 00:00:00 105.7 [lb_av] [facility] BP Diastolic 2019-04-23 00:00:00 70 mm[Hg] [facility] Height 2019-04-23 00:00:00 61 [in_i] [facility] BMI (Body Mass 2019-04-23 00:00:00 20.1 kg/m2 [facility] BP Systolic 2019-04-23 00:00:00 110 mm[Hg] [facility] BP Diastolic 2019-04-16 00:00:00 66 mm[Hg] [facility] Height 2019-04-16 00:00:00 61 [in_i] [facility] BMI (Body Mass 2019-04-16 00:00:00 19.8 kg/m2 [facility] BP Systolic 2019-04-16 00:00:00 102 mm[Hg] [facility] Body Weight 2019-04-16 00:00:00 104.6 [lb_av] [facility] BP Diastolic 2019-04-02 00:00:00 70 mm[Hg] [facility] Height 2019-04-02 00:00:00 61 [in_i] [facility] BMI (Body Mass 2019-04-02 00:00:00 19.9 kg/m2 [facility] BP Systolic 2019-04-02 00:00:00 122 mm[Hg] [facility] Body Weight 2019-04-02 00:00:00 105.5 [lb_av] [facility] BP Diastolic 2019-03-30 00:00:00 74 mm[Hg] [facility] Height 2019-03-30 00:00:00 61 [in_i] [facility] BMI (Body Mass 2019-03-30 00:00:00 19.8 kg/m2 [facility] cuff [facility] Medical Index) Group BP Systolic 2019-03-30 00:00:00 118 mm[Hg] [facility] Body Weight 2019-03-30 00:00:00 105 [lb_av] [facility] BP Diastolic 2019-03-27 00:00:00 76 mm[Hg] [facility] Height 2019-03-27 00:00:00 61 [in_i] [facility] BMI (Body Mass 2019-03-27 00:00:00 19.9 kg/m2 [facility] cuff [facility] Medical Index) Group BP Systolic 2019-03-27 00:00:00 121 mm[Hg] [facility] Body Weight 2019-03-27 00:00:00 105.3 [lb_av] [facility] BP Diastolic 2019-03-09 00:00:00 72 mm[Hg] [facility] Height 2019-03-09 00:00:00 61 [in_i] [facility] BMI (Body Mass 2019-03-09 00:00:00 19.6 kg/m2 [facility] BP Systolic 2019-03-09 00:00:00 116 mm[Hg] [facility] Body Weight 2019-03-09 00:00:00 103.6 [lb_av] [facility] Height 2019-03-04 00:00:00 61 [in_i] [facility] Systolic blood 2022-07-28 16:29:00 100 mm[Hg] [facility] Diastolic blood 2022-07-28 16:29:00 64 mm[Hg] [facility] Heart rate 2022-07-28 16:29:00 90 /min [facility] Body temperature 2022-07-28 16:29:00 36.44 Yesenia [facility] Respiratory rate 2022-07-28 16:29:00 18 /min [facility] Oxygen saturation in 2022-07-28 16:29:00 100 /min [facility] Arterial blood by Medical Ce nter Pulse oximetry Body height 2022-07-27 22:03:00 152.4 cm [facility] Body weight 2022-07-27 22:03:00 39.009 kg [facility] BMI 2022-07-27 22:03:00 16.80 kg/m2 [facility] Procedures Procedure Date / Time Performing Source Performed Clinician MR, cholangiopancreatogram, w/ 2022-08-09 [facility] contrast 00:00:00 Group PHYSICIAN ORDERS 2022-08-01 [facility] 05:01:00 Unassigned, No [place] [facility] MR ABDOMEN WITHOUT IV CONTRAST 2022-07-28 Irena Epstein [facility] MRCP 14:11:00 [facility] CBC W/PLT COUNT & AUTO 2022-07-[address] [facility] DIFFERENTIAL 04:19:00 [facility] CBC W/PLT COUNT & AUTO 2022-07-[address] [facility] DIFFERENTIAL 04:19:00 [facility] HEPATIC FUNCTION PANEL 2022-07-28 [facility] 04:19:00 [facility] BASIC METABOLIC PANEL 2022-07-[address] [facility] 04:19:00 [facility] POCT TEST 2022-07-13 Brady Graham [place] f 17:54:00 [facility] LIPASE 2022-07-13 Brady Graham [place] of 17:51:00 [facility] COMP. METABOLIC PANEL (25608) 2022-07-13 Brady Graham Un iversity of 17:51:00 [facility] CBC WITH DIFF 2022-07-13 Brady Graham [place] of 17:51:00 [facility] URINALYSIS 2022-07-13 Brady Graham [place] of 14:21:00 [facility] NOTICE OF PRIVACY PRACTICES 2022-07-13 Doctor Nhung ersity of 13:06:30 Unassigned, No [facility] CONSENT/REFUSAL FOR DIAGNOSIS AND 2022-07-13 [facility] of TREATMENT 13:05:28 Unassigned, No [facility] Cholecystectomy 2022-06-29 [facility] 00:[facility] Egd 2022-06-25 [facility] Colonoscopy 2022-06-25 [facility] Esophagogastroduodenoscopy 2022-06-25 [facility] US, abdomen, complete 2022-06-07 [facility] 00:00:00 [facility] EXTERNAL PROVIDER RECORDS 2022-05-03 Doctor Jeferson sity of 06:01:00 Unassigned, No [facility] Removal of Tonsils 2021-08-14 [facility] 00:[facility]:00 Group XR, toe(s), 2 or more view 2021-05-22 [facility] 00:00:00 Group US(FBP)W/0 NON STRESS TEST 2019-04-28 [facility] 00:00:00 Group US(FBP)W/0 NON STRESS TEST 2019-04-23 [facility] 00:00:00 Group US, obstetric, limited 2019-04-16 [facility] 00:00:00 Group US(FBP)W/0 NON STRESS TEST 2019-04-16 [facility] 00:00:00 Group US(FBP)W/0 NON STRESS TEST 2019-04-02 [facility] 00:00:00 Group non-stress test 2019-04-02 [facility] 00:00:00 Group US(FBP)W/0 NON STRESS TEST 2019-03-30 [facility] 00:00:00 Group non-stress test 2019-03-30 [facility] 00:00:00 Group US, obstetric, limited 2019-03-27 [facility] 00:00:00 Group US(FBP)W/0 NON STRESS TEST 2019-03-27 [facility] 00:00:00 Group ULTRASOUND, UTERUS REAL 2019-03-04 [facility] TIME WITH IMAGE DOC, AND 00:00:00 G roup MATERNAL EVAL PLUS DETAILED ANATOMIC EXAMINATION, TRANSABDOMINAL APPROACH; SINGLE OR FIRST GESTATION Tubal Ligation [facility] l Group Tonsillectomy [facility] Ligation of Fallopian Tube [facility] Plan of Care Planned Activity Planned Date Details Comments Source Future Scheduled 2023-01-13 [facility] 00:00:00 (>/= 19 yrs) [code = IMM Influenza Seasonal (>/= 19 yrs)] Future Scheduled 2023-01-13 [facility] 00:00:00 (>/= 19 yrs) [code = IMM Influenza Seasonal (>/= 19 yrs)] Future Scheduled 2022-12-14 Influenza Vaccine (#1) [facility] 00:00:00 [code = Influenza Medical Ce nter Vaccine (#1)] Future Scheduled 2022-12-14 Influenza Vaccine (#1) [facility] 00:00:00 [code = Influenza Medical Ce nter Vaccine (#1)] Future Scheduled 2022-11-29 Screening for malignant [facility] 11:00:05 neoplasm of cervix Hospital (procedure) [code = 015472163] Future Scheduled 2022-11-29 INFLUENZA VACCINE [code [facility] 11:00:05 = INFLUENZA VACCINE] Hospita l Future Scheduled 2022-11-29 COVID-19 VACCINE (#1) [facility] 11:00:05 [code = COVID-19 VACCINE Hos pital (#1)] Diagnostic Test 2022-10-08 drug screen, urine [code [facility] Pending 00:00:00 = drug screen, urine] Group Future Scheduled 2022-10-04 COVID-19 VACCINE (#1) [facility] 12:40:33 [code = COVID-19 VACCINE Hos pital (#1)] Future Scheduled 2022-10-04 Screening for malignant [facility] 12:40:33 neoplasm of cervix Hospital (procedure) [code = 039366388] Future Scheduled 2022-10-04 INFLUENZA VACCINE [code [facility] 12:40:33 = INFLUENZA VACCINE] Hospita l Future Scheduled 2022-07-19 COVID-19 VACCINE (#1) [facility] 18:24:04 [code = COVID-19 VACCINE Hos pital (#1)] Future Scheduled 2022-07-19 Screening for Chlamydia [facility] 18:24:04 trachomatis (procedure) Hosp ital [code = 750340172] Future Scheduled 2022-07-19 Screening for malignant [facility] 18:24:04 neoplasm of cervix Hospital (procedure) [code = 561078449] Future Scheduled 2022-07-19 INFLUENZA VACCINE [code [facility] 18:24:04 = INFLUENZA VACCINE] Hospita l Future Scheduled 2022-06-25 COVID-19 VACCINE (#1) [facility] 10:56:52 [code = COVID-19 VACCINE Hos pital (#1)] Future Scheduled 2022-06-25 Screening for Chlamydia [facility] 10:56:52 trachomatis (procedure) Hosp ital [code = 650873027] Future Scheduled 2022-06-25 Screening for malignant [facility] 10:56:52 neoplasm of cervix Hospital (procedure) [code = 434651690] Future Scheduled 2022-06-25 INFLUENZA VACCINE [code [facility] 10:56:52 = INFLUENZA VACCINE] Hospita l Future Scheduled 2022-06-25 COVID-19 VACCINE (#1) [facility] 10:56:52 [code = COVID-19 VACCINE Hos pital (#1)] Future Scheduled 2022-06-25 Screening for Chlamydia [facility] 10:56:52 trachomatis (procedure) Hosp ital [code = 140775741] Future Scheduled 2022-06-25 Screening for malignant [facility] 10:56:52 neoplasm of [facility] Hospital (procedure) [code = 355149338] Future Scheduled 2022-06-25 INFLUENZA VACCINE [code [facility] 10:56:52 = INFLUENZA VACCINE] Hospita l Diagnostic Test 2022-06-07 C reactive protein, QN, [place] Pending 00:00:00 serum or plasma [code = [facility] C reactive protein, QN, Outr each Program serum or plasma] Diagnostic Test 2022-06-07 vitamin D, 25-hydroxy, [place] Pending 00:00:00 total, serum [code = [facility] vitamin D, 25-hydroxy, Outre ach Program total, serum] Diagnostic Test 2022-06-07 vitamin B12 + folate, [place] Pending 00:00:00 serum or blood [code = [facility] vitamin B12 + folate, Outrea Program serum or blood] Diagnostic Test 2022-06-07 ESR (erythrocyte [place] Pending 00:00:00 sedimentation rate), [facility] blood [code = ESR Outreach P rogram (erythrocyte sedimentation rate), blood] Diagnostic Test 2022-06-07 ANDREA (antinuclear [place] Pending 00:00:00 antibodies) screen, [facility] serum [code = ANDREA Outreach P rogram (antinuclear antibodies) screen, serum] Diagnostic Test 2022-06-07 iron + TIBC + ferritin, [place] Pending 00:00:00 serum [code = iron + [facility] TIBC + ferritin, serum] Outr each Program Diagnostic Test 2022-06-07 lipase, serum or plasma [place] Pending 00:00:00 [code = lipase, serum or [facility] plasma] Outreach Progra Diagnostic Test 2022-06-07 igg, subclass 4, [place] Pending 00:00:00 quantitative, serum [facility] [code = igg, subclass 4, Out reach Program quantitative, serum] Diagnostic Test 2022-06-07 triglycerides, serum Jamil luann Pending 00:00:00 [code = triglycerides, [facility] serum] Outreach Progra m Diagnostic Test 2022-06-07 TSH, ultra-sensitive, [place] Pending 00:00:00 serum [code = TSH, [facility] ultra-sensitive, serum] Outr each Program Diagnostic Test 2022-06-07 Hepatitis C IgG Ab, [place] Pending 00:00:00 qual, serum [code = [facility] Hepatitis C IgG Ab, Outreach Program qual, serum] Future Scheduled 2022-04-[address] [facility] Test 00:00:00 (12+) [code = DEPRESSION Med ical Center SCREENING (12+)] Future Scheduled 2022-04-[address] [facility] Test 00:00:00 (12+) [code = DEPRESSION Med ical Center SCREENING (12+)] Future Scheduled 2022-04-05 INFLUENZA VACCINE [code [facility] 16:41:03 = INFLUENZA VACCINE] Hospita l Future Scheduled 2022-04-05 COVID-19 VACCINE (#1) [facility] 16:41:03 [code = COVID-19 VACCINE Hos pital (#1)] Future Scheduled 2022-04-05 Screening for Chlamydia [facility] 16:41:03 trachomatis (procedure) Hosp ital [code = 145058838] Future Scheduled 2022-04-05 Screening for malignant [facility] 16:41:03 neoplasm of cervix Hospital (procedure) [code = 742144696] Future Scheduled 2022-04-05 INFLUENZA VACCINE [code [facility] 16:41:03 = INFLUENZA VACCINE] Hospita l Future Scheduled 2022-04-05 COVID-19 VACCINE (#1) [facility] 16:41:03 [code = COVID-19 VACCINE Hos pital (#1)] Future Scheduled 2022-04-05 Screening for Chlamydia [facility] 16:41:03 trachomatis (procedure) Hosp ital [code = 281492271] Future Scheduled 2022-04-05 Screening for malignant [facility] 16:41:03 neoplasm of cervix Hospital (procedure) [code = 177065031] Future Scheduled 2022-04-05 INFLUENZA VACCINE [code [facility] 16:41:03 = INFLUENZA VACCINE] Hospita l Future Scheduled 2022-04-05 COVID-19 VACCINE (#1) [facility] 16:41:03 [code = COVID-19 VACCINE Hos pital (#1)] Future Scheduled 2022-04-05 Screening for Chlamydia [facility] 16:41:03 trachomatis (procedure) Hosp ital [code = 862824978] Future Scheduled 2022-04-05 Screening for malignant [facility] 16:41:03 neoplasm of cervix Hospital (procedure) [code = 868249500] Future Scheduled 2022-04-05 INFLUENZA VACCINE [code [facility] 16:41:03 = INFLUENZA VACCINE] Hospita l Future Scheduled 2022-04-05 COVID-19 VACCINE (#1) [facility] 16:41:03 [code = COVID-19 VACCINE Hos pital (#1)] Future Scheduled 2022-04-05 Screening for Chlamydia [facility] 16:41:03 trachomatis (procedure) Hosp ital [code = 963311727] Future Scheduled 2022-04-05 Screening for malignant [facility] 16:41:03 neoplasm of cervix Hospital (procedure) [code = 371301758] Future Scheduled 2022-04-05 INFLUENZA VACCINE [code [facility] 16:41:03 = INFLUENZA VACCINE] Hospita l Future Scheduled 2022-04-05 COVID-19 VACCINE (#1) [facility] 16:41:03 [code = COVID-19 VACCINE Hos pital (#1)] Future Scheduled 2022-04-05 Screening for Chlamydia [facility] 16:41:03 trachomatis (procedure) Hosp ital [code = 820141792] Future Scheduled 2022-04-05 Screening for malignant [facility] 16:41:03 neoplasm of cervix Hospital (procedure) [code = 061203441] Future Scheduled 2022-04-05 INFLUENZA VACCINE [code [facility] 16:41:03 = INFLUENZA VACCINE] Hospita l Future Scheduled 2022-04-05 COVID-19 VACCINE (#1) [facility] 16:41:03 [code = COVID-19 VACCINE Hos pital (#1)] Future Scheduled 2022-04-05 Screening for Chlamydia [facility] 16:41:03 trachomatis (procedure) Hosp ital [code = 966439765] Future Scheduled 2022-04-05 Screening for malignant [facility] 16:41:03 neoplasm of cervix Hospital (procedure) [code = 191006055] Future Scheduled 2022-02-15 HEPATITIS B VACCINES (1 [facility] 18:27:03 of 3 - 3-dose series) Hospit al [code = HEPATITIS B VACCINES (1 of 3 - 3-dose series)] Future Scheduled 2022-02-15 COVID-19 VACCINE (#1) [facility] 18:27:03 [code = COVID-19 VACCINE Hos pital (#1)] Future Scheduled 2022-02-15 Screening for Chlamydia [facility] 18:27:03 trachomatis (procedure) Hosp ital [code = 496045421] Future Scheduled 2022-02-15 Screening for malignant [facility] 18:27:03 neoplasm of cervix Hospital (procedure) [code = 003437262] Future Scheduled 2022-02-15 INFLUENZA VACCINE [code [facility] 18:27:03 = INFLUENZA VACCINE] Hospita l [...] Future Scheduled 2021-12-14 HEPATITIS B VACCINES (1 [facility] 04:05:20 of 3 - 3-dose series) Hospit al [code = HEPATITIS B VACCINES (1 of 3 - 3-dose series)] Future Scheduled 2021-12-14 COVID-19 VACCINE (#1) [facility] 04:05:20 [code = COVID-19 VACCINE Hos pital (#1)] Future Scheduled 2021-12-14 Screening for Chlamydia [facility] 04:05:20 trachomatis (procedure) Hosp ital [code = 601844977] Future Scheduled 2021-12-14 Screening for malignant [facility] 04:05:20 neoplasm of cervix Hospital (procedure) [code = 637295958] Future Scheduled 2021-12-14 INFLUENZA VACCINE [code [facility] 04:05:20 = INFLUENZA VACCINE] Hospita l Future Scheduled 2021-01-13 IMM Influenza [facility]al [facility] 00:00:00 Oct to June (>/= 19 yrs) [code [...] - Booster for Moderna series)] Future Scheduled 2020-11-10 COVID-19 VACCINE ([facility] Booster for Moderna [facility] series) [code = COVID-19 VACCINE (2 - Booster for Moderna series)] Future Scheduled 2019-11-25 DTAP/TDAP/TD VACCINES ([address] [facility] Test 00:00:00 - Td or Tdap) [code = [facility] DTAP/TDAP/TD VACCINES (3 - Td or Tdap)] Future Scheduled 2019-11-25 DTAP/TDAP/TD VACCINES ([address] [facility] Test 00:00:00 - Td or Tdap) [[facility]AP/TDAP/TD VACCINES (3 - Td or Tdap)] Future 2018 Screening for malignant [facility] 00:00:00 neoplasm of cervix (procedure) [code = 846124820] Future Scheduled 2018 Screening for malignant [facility] Test 00:00:00 neoplasm of cervix Medical C enter (procedure) [code = 065262864] Future Scheduled 2018 Screening for malignant [facility] 00:00:00 neoplasm of cervix (procedure) [code = 753617654] Future 2018 Screening for malignant [facility] Test 00:00:00 neoplasm of cervix (procedure) [code = 094263912] Future 2018 Screening for malignant [facility] Test 00:00:00 neoplasm of cervix (procedure) [code = 186004230] Future 2018 Screening for malignant [facility] Test 00:00:00 neoplasm of cervix (procedure) [code = 430870566] Future 2018 Screening for malignant [facility] 00:00:00 neoplasm of cervix (procedure) [code = 022567649] Future 2018 Screening for malignant [facility] 00:00:00 neoplasm of cervix (procedure) [code = 090982577] Future Scheduled 2018 Screening for malignant [facility] Test 00:00:00 neoplasm of cervix (procedure) [code = 263618134] Future 2018 Screening for malignant [facility] Test 00:00:00 neoplasm of cervix (procedure) [code = 020488568] Future Scheduled 2018 Screening for malignant [facility] Test 00:00:00 neoplasm of cervix (procedure) [code = 239981676] Future Scheduled 2018 Screening for malignant [facility] 00:00:00 neoplasm of cervix (procedure) [code = 553707425] Future Scheduled 2018 Screening for malignant [facility] Test 00:00:00 neoplasm of cervix (procedure) [code = 023793317] Future Scheduled 2018 Screening for malignant [facility] Test 00:00:00 neoplasm of cervix (procedure) [code = 039338960] Future Scheduled 2018 Screening for malignant [facility] Test 00:00:00 neoplasm of cervix (procedure) [code = 874612189] Future Scheduled 2018 Screening for malignant [facility] Test 00:00:00 neoplasm of cervix Medical C enter (procedure) [code = 503531967] Future Scheduled 2015-08-27 HEPATITIS C [facility] [code = HEPATITIS C Medical Center SCREENING] Future Scheduled 2015-08-27 [facility]ITIS C [facility] 00:[facility] [code = HEPATITIS C Medical Center SCREENING] Future Scheduled 2012 [address] [facility] 00[facility]00 virus screening Medical Cent er (procedure) [code = 112657914] Future Scheduled [address] [facility] 00:00:00 virus screening Medical Cent er (procedure) [code = 345525172] Future Scheduled [address] [facility] Test 00:00:00 Counseling and Screening Med ical Center (12+) [code = Tobacco Cessation Counseling and Screening (12+)] Future Scheduled 2009 COVID-19 Vaccine (1) [facility] 00:00:00 [code = COVID-19 Vaccine (1)] Future Scheduled 2009 COVID-19 Vaccine (1) [facility] 00:00:00 [code = COVID-19 Vaccine (1)] Future Scheduled [address] [facility] Test 00:00:00 Counseling and Screening Med ical Center (12+) [code = Tobacco Cessation Counseling and Screening (12+)] Future Scheduled 1998-02-26 COVID-19 Vaccine (#1) [place] [...] Fluoride Varnish] Future Scheduled Screening for malignant [facility] neoplasm of cervix Hospital (procedure) [code = 879999437] Future Scheduled INFLUENZA VACCINE [code [facility] = INFLUENZA VACCINE] Hospita l Future Scheduled CHLAMYDIA SCREENING [facility] Test [code = CHLAMYDIA Hospital SCREENING] Future Scheduled COVID-19 VACCINE (1) [facility] Test [code = COVID-19 VACCINE Hos pital (1)] Instructions [place] [facility] Encounters Start End Encounter Admission Attending Care Care Encounter Source Date/Time Date/Time Type Type Clinicians Facility Department ID 2022-11-06 [facility] [id number] 14:24:45 [id number] [place] 2022-03-02 Inpatient TEXANA TEX[place] [id number] [place] 13:57:04 [id number] [place] 2022-01-22 Outpatient [facility] [id number] [place] 15:22:36 [id number] [facility] 2022-01-14 Outpatient [facility] [id number] [place] 19:22:32 [id number] [facility] 2022-01-11 Outpatient [facility] [id number] [place] 15:52:30 [id number] [facility] 2022-10-08 2022-10-08 Outpatient BLANE GIBBONS, [facility] [id number] [place] 14:55:00 14:55:00 TORI -[id number] [facility] 2022-10-08 2022-10-08 Tori DUG [place] - [id number] [place] 00:00:00 00:00:00 Lizbet Bean [facility] Medical FLAVOR EXTRACTOR: [address] [facility], [place], [facility] [address], [place] [address] , Ph. 2022-10-05 2022-10-05 Outpatient Hawkins_M MMG [facility] [id number] -2022 [place] 00:00:00 00:00:00 0815 Medical Group 2022-10-05 2022-10-05 Outpatient Hawkins_M MMG MM [id number] -2022 [place] 00:00:00 00:00:00 0623 Medical Group 2022-10-05 2022-10-05 Outpatient Hawkins_[place] [id number] -2022 [place] 00:00:00 00:00:00 0626 Medical Group 2022-09-04 2022-09-04 Outpatient Hawkins_M MMG MMG [id number] -2022 [place] 00:00:00 00:00:00 0523 Medical Group 2022-08-27 2022-08-27 Outpatient Hawkins_M MMG MMG [id number] -2022 [place] 00:00:00 00:00:00 0515 [facility] Group 2022-08-27 2022-08-27 Tori DUG [place] - [id number] [place] 00:00:00 00:00:00 [facility] FLAVOR EXTRACTOR: [address] [facility], [place], Family [address], [place] [address] , Ph. 2022-08-22 2022-08-22 Outpatient Caitlin JADE [facility] [id number] [place] 00:00:00 00:00:00 0510 [facility] 2022-08-09 2022-08-09 Liana Burrisn [facility] [id number] [place] 00:00:00 00:00:00 Rowan Cunha MD: [id number] Mandaen Epis endoscope technician [place] 59 [facility] - [facility] [address], [place], [facility] Program [address] , Ph. 2022-08-06 2022-08-06 Outpatient Ferguson_Ro [place] [id number] [place] 00:00:00 00:00:00 bin 0427 [facility] 2022-08-06 2022-08-06 Outpatient Ferguson_[place] [id number] [place] 00:00:00 00:00:00 bin 0428 [facility] 2022-08-01 2022-08-01 Residential Treatment Staff Jay, Jameel Lab Main [facility] [id number] Univers 13:15:00 13:30:00 Visit Joanne [place] [id number] ity [facility] 4.2.7.2.686 [place] PROFESS[place] [phone] [address] 2022-08-01 2022-08-01 Outpatient Rocky MEAS [facility] [id number] Univers 13:15:00 13:15:00 JOANNE trevino of [facility] 2022-08-01 2022-08-01 Orders Doctor FISHER [id number] Univers 00:00:00 00:00:00 Only Unassigned, [place] [id number] [facility] 4.2.7.2.686 Eliel as [phone] [facility] [address] 2022-07-30 2022-07-30 Tori [facility] [place] - [id number] [place] 00:00:00 00:00:00 Lizbet Bean, Medical Medical FLAVOR EXTRACTOR: [address] [facility], [place], Family [address], [place] [address] , Ph. 2022-07-27 2022-07-28 Outpatient ER BONILLA NETTLES [facility] [id number] SLE 21:45:00 18:24:00 [facility] 2022-07-27 2022-07-28 [facility] [id number] [facility] 21[facility]45[facility] 18:24[facility]00 [facility]-27 2022-07-28 [facility] [id number] [facility] 21:45:00 18:24:00 [facility]counter [facility] 2022-07-26 2022-07-26 Outpatient Young_J [facility] [id number] [place] 00:00:00 00:00:00 0413 [facility] 2022-07-26 2022-07-26 Outpatient Young_J [facility] [id number] [place] 00:00:00 00:00:00 0417 [facility] 2022-07-26 2022-07-26 Outpatient Young_J [facility] [id number] [id number] [place] 00:00:00 00:00:00 0424 Medical [facility] 2022-07-13 2022-07-13 Emergency CHEMO Graham [id number] Univers 08:25:00 16:12:00 Brady NIXON 350.1.13.10 i Frank 4.2.7.2.686 [facility] [id number] [facility] [address] 2022-07-13 2022-07-13 Emergency X CHEMO GRAHAM ERT [id number] Univers 08:25:00 16:12:00 BRADY trevino [facility] 2022-07-06 2022-07-06 [facility]patient [facility] [id number] [id number] [place] 00:00:00 00:00:00 0324 Medical [facility] 2022-07-06 2022-07-06 Outpatient Jourdan_J MMG [facility] [id number] [place] 00:00:00 00:00:00 0325 [facility] 2022-07-06 2022-07-06 Leon DU [place] - [id number] [place] 00:00:00 00:00:00 Jourdan DO: Discovery calos esquivel [address] [place] [address] - [address], [facility] [address] , Ph. [phone] 2022-07-05 2022-07-05 Outpatient Presley_M MMG [facility] [id number] -2022 [place] 00:00:00 00:00:00 0323 [facility] 2022-07-05 2022-07-05 Tori SANDY [place] - [id number] [place] 00:00:00 00:00:00 [facility] FLAVOR EXTRACTOR: [address] [place] [address], [facility] [address], [place] [address] , Ph. 2022-06-30 2022-06-30 Outpatient LUKAS KONG [facility] [id number] Univers 10:00:00 10:00:00 LUKAS CALHOUN [facility] 2022-06-29 2022-06-29 Outpatient BLANE SERRATO [facility] [id number] [place] 07:04:00 07:04:00 LEON -[id number] [facility] 2022-06-25 2022-06-25 Outpatient BLANE CUNHA [facility] [id number] [place] 10:54:00 10:54:00 LIANA -[id number] [facility] 2022-06-25 2022-06-25 Outpatient Jourdan[facility]line [facility] [id number] 023 [place] 00:00:00 00:00:00 0313 [facility] 2022-06-25 2022-06-25 Outpatient Caitlin [facility] [id number] [place] 00:00:00 00:00:00 0314 Medical Group 2022-06-25 2022-06-25 Outpatient Caitlin SANDYG [facility] [id number] [place] 00:00:00 00:00:00 0315 da Medical Group 2022-06-25 2022-06-25 Leon [facility] [place] - [id number] [place] 00:00:00 00:00:00 DO Jourdan: Discovery calos esquivel [address] [place] [address] Group Ely [place], [place] - [address], [facility], [facility] [place] [address] , Ph. [phone] 2022-06-18 2022-06-18 Outpatient Ferguson_Ro [facility] [place] [address] [place] 00:00:00 00:00:00 bin 0306 [facility] 2022-06-14 2022-06-14 Outpatient Ferguson_Ro [facility] [place] [address] [place] 00:00:00 00:00:00 bin 0302 [facility] 2022-06-08 2022-06-08 Outpatient Ferguson_Ro [facility] 857 [place] 00:00:00 00:00:00 bin 0224 [facility] 2022-06-07 2022-06-07 Outpatient Ferguson_Ro [facility] 857 [place] 00:00:00 00:00:00 bin 0223 [facility] 2022-06-07 2022-06-07 Liana Ewing [facility] [place] - [id number] [place] 00:00:00 00:00:00 Rowan Cunha MD: [id number] Mandaen Epis endoscope technician [place] 59 HOP - [facility] Health [address], [place] Program [address] , Ph. 2022-06-06 2022-06-06 Outpatient AMBREEN_FAR [facility] 85 [place] 00:00:00 00:00:00 JASPAL 0222 [facility] 2022-06-04 2022-06-04 Outpatient BLANE GIBBONS, [facility] [id number] [place] 16:31:00 16:31:00 TORI [id number] [facility] 2022-06-04 2022-06-04 Tori SANDY [place] - [id number] [place] 00:00:00 00:00:00 Lizbet Bean Medical Medical FLAVOR EXTRACTOR: [address] [facility] [address], [place] [address] , Ph. 2022-05-31 2022-05-31 Emergency ER CATANESCU, [facility] [id number] [place] 21:05:00 21:15:00 IGNACIO -[id number] [facility] 2022-05-28 2022-05-28 Emergency ER LEAL, [facility] [id number] [place] 21:28:00 23:37:00 YOLETTE -[id number] [facility] 2022-05-18 2022-05-18 Tori [facility] [place] - [id number] M [place] 00:00:00 00:00:00 Lizbet Bean Medical Medical FLAVOR EXTRACTOR: [address] [place] [address] [address], [place] [address] , Ph. 2022-05-17 2022-05-17 Angy Calhoun [facility] [id number] [id number] [facility] 00:00:00 00:00:00 [facility] [id number] [facility] [id number] Eliel as TERESE?BLEA [id number] [address] MEDICAL OFFICE BUILDING 2022-05-15 2022-05-15 Tori SANDY [place] - [id number] M at[place] 00:00:00 00:00:00 Lizbet Bean Medical Medical FLAVOR EXTRACTOR: [address] [facility] [address], [place] [address] , Ph. 2022-05-03 2022-05-03 Orders Doctor NATALIA 1.2.840.114 [id number] Univers 00:00:00 00:00:00 Only Unassigned, [place] 350.1.13.[address] [facility] 4.2.7.2.686 Eliel as [phone] [address] 2022-03-16 2022-03-16 Outpatient LUKAS KONG [facility] [id number] [facility] 14:00:00 14:00:00 [facility] 2022-02-23 2022-02-23 [facility] [id number] -2022 [place] 00:00:00 00:00:00 0131 [facility] Group 2022-02-23 2022-02-23 [place] [id number] -2022 [place] 00:00:00 00:00:00 0203 [facility] Group 2022-02-23 2022-02-23 [place] [id number] -2022 [place] 00:00:00 00:00:00 0220 da [facility] Group 2022-02-23 2022-02-23 Outpatient Hawkins_M MMG MM [id number] -2022 [place] 00:00:00 00:00:00 0222 da [facility] Group 2022-02-23 2022-02-23 Outpatient Hawkins_M MMG MMG [id number] -2022 [place] 00:00:00 00:00:00 0227 Medical Group 2022-02-20 2022-02-20 Outpatient Hawkins_M MMG MMG [id number] -2021 [place] 00:00:00 00:00:00 1108 Medical Group 2022-02-20 2022-02-20 Telephone Lj [facility] 1.2.840.114 [id number] Univers 00:00:00 00:00:00 Lukas [facility] 350.1.13.10 ity of [place] 4.2.7.2.686 Eliel as TERESE?BLEA [phone] [address] MEDICAL OFFICE BUILDING 2022-02-20 2022-02-20 Tori SANDY [place] - [id number] M at[place]or 00:00:00 00:00:00 Lizbet Bean, Medical Medical FLAVOR EXTRACTOR: [address] [facility] [address], [place] [address] , Ph. 2022-02-09 2022-02-09 Outpatient Presley_Gemma JADE [facility] [id number] [place] 00:00:00 00:00:00 1028 [facility] 2022-01-24 2022-01-24 Outpatient [facility] [id number] [place] 08:45:00 08:45:00 Health 2022-01-22 2022-01-22 Telephone Lj [facility] 1.2.840.114 [id number] Univers 00:00:00 00:00:00 [facility] [id number] ity of [facility] [id number] Eliel as TERESE?BLEA [id number] Sd kell[address] OFFICE [facility] 2022-01-17 2022-01-17 Outpatient Elin [facility] [id number] [place] 00:00:00 00:00:00 1005 [facility] 2022-01-17 2022-01-17 Tori SANDY [place] - [id number] M at[place]or 00:00:00 00:00:00 Lizbet Bean Medical Medical FLAVOR EXTRACTOR: [address] [facility] [address], [place] [address] , Ph. 2022-01-10 2022-01-10 Telephone Lj [facility] 1.2.840.114 [id number] Univers 00:00:00 00:00:00 [facility] 350.1.13.10 ity of [place] 4.2.7.2.686 Eliel as TERESE?BLEA [id number] [address] OFFICE [facility] 2022-01-05 2022-01-05 [facility] 1.2.840.114 [id number] Univers 16:00:00 16:52:54 Visit [facility] [id number] ity of [place] [id number] Eliel as TERESE?BLEA [id number] Sd kellie[address] OFFICE [facility] 2022-01-05 2022-01-05 Outpatient Rocky LUKAS CALHOUN [facility] [id number] Univers 16:00:00 16:52:54 LUKAS CALHOUN ity [facility] 2022-01-05 2022-01-05 Jayy Lj [facility] 1.2.840.114 [id number] Univers 00:00:00 00:00:00 (Out) [facility] [facility] [id number] ity of APTOS [id number] Eliel as TERESE?BLEA [id number] [address] OFFICE [facility] 2022-01-04 2022-01-04 Outpatient Presley_[facility] [id number] [place] 00:00:00 00:00:00 0922 [facility] 2022-01-04 2022-01-04 Tori [facility] [place] - [id number] M [place] 00:00:00 00:00:00 [facility] FLAVOR EXTRACTOR: 600 [facility] [address], [place] [address] , Ph. 2021-10-23 2021-10-23 Outpatient Presley_M [facility] [id number] [place] 02:43:00 02:43:00 0711 [facility] 2021-10-23 2021-10-23 Tori [facility] [place] - [id number] M [place] 00:00:00 00:00:00 Lizbet BeanJack [facility] Medical FLAVOR EXTRACTOR: [address] [facility] [address], [place] [address] , Ph. 2021-10-05 2021-10-05 Outpatient Presley_M [facility] [id number] [place] 09:37:00 09:37:00 0623 [facility] 2021-10-05 2021-10-05 Outpatient BLANE GIBBONS [facility] [id number] [place] 09:34:00 09:34:00 TORI -[id number] [facility] 2021-10-05 2021-10-05 Tori MM [place] - [id number] [place] 00:00:00 00:00:00 Lizbet Daly [facility] FLAVOR EXTRACTOR: [address] [address] , Ph. 2021-10-04 2021-10-04 Outpatient Mathewkins[facility] [id number] -2021 [place] 04:46:00 04:46:00 0622 Medical [facility] 2021-09-14 2021-09-14 Outpatient Yan_W [facility] [id number] [place] 04:46:00 04:46:00 0602 [facility] 2021-09-14 2021-09-14 Maritza [facility] [place] - [id number] [place] 00:00:00 00:00:00 [facility] [address] [address] , Ph. 2021-09-05 2021-09-05 Outpatient Yan[facility] [id number] [place] 10:23:00 10:23:00 0524 [facility] 2021-09-05 2021-09-05 Loki Fuentes [facility] [place] - [id number] [place] 00:00:00 00:00:00 MD: Harika Daly [address], [place] [address] , Ph. 2021-08-24 2021-08-24 Outpatient Yan[facility]W [facility] [id number] [place] 10:31:00 10:31:00 0512 [facility] 2021-08-19 2021-08-19 Emergency ER HEMALATHA [facility] [id number] [place] 12:57:00 13:44:00 HERNANDEZ -[id number] [facility] 2021-08-14 2021-08-14 Outpatient LOKI SOFIA [facility] [id number] [place] 07:27:00 07:27:00 -[id number] [facility] 2021-08-14 2021-08-14 Outpatient Mathewkins_M MMG [facility] [id number] -2021 [place] 04:26:00 04:26:00 0502 Medical [facility] 2021-08-14 2021-08-14 [place] [id number] -2021 [place] 04:26:00 04:26:00 0509 [facility] 2021-07-27 2021-07-27 Outpatient Mathewkins_M MMG [facility] [id number] -2021 [place] 12:50:00 12:50:00 0414 [facility] 2021-07-27 2021-07-27 Outpatient BLANE GIBBONS [facility] [id number] [place] 12:16:00 12:16:00 TORI -[id number] [facility] 2021-07-27 2021-07-27 [facility] [id number] [place] 02:53:00 02:53:00 JASPAL 0414 [facility] 2021-07-27 2021-07-27 Tori [facility] [place] - [id number] M [place] 00:00:00 00:00:00 Lizbet Bean Medical Medical FLAVOR EXTRACTOR: 600 [facility] [address], [place] [address] , Ph. 2021-07-25 2021-07-25 Outpatient Yan[facility] [id number] [place] 11:17:00 11:17:00 0412 Medical Group 2021-07-25 2021-07-25 [place] [id number] [place] 11:17:00 11:17:00 0413 Medical [facility] 2021-07-252021-07-25 Loki Fuentes MMG [place] - [id number] [place] 00:00:00 00:00:00 MD: Harika Daly [address], [facility] [address] , Ph. 2021-07-24 2021-07-24 Outpatient Hawkins[facility]M [facility] [id number] -2021 [place] 02:56:00 02:56:00 0411 [facility] 2021-07-24 2021-07-24 Tori MM [place] - [id number] [place] 00:00:00 00:00:00 Lizbet Bean Medical Medical FLAVOR EXTRACTOR: [address] [facility] [address] [address] , Ph. 2021-07-12 2021-07-12 Outpatient Hawkins[facility] [id number] -2021 [place] 03:56:00 03:56:00 0330 Medical [facility] 2021-07-12 2021-07-12 [place] [id number] -2021 [place] 03:56:00 03:56:00 0331 [facility] 2021-07-12 2021-07-12 Tori MM [place] - [id number] [place] 00:00:00 00:00:00 Lizbet Bean Medical Medical FLAVOR EXTRACTOR: [address] [address] , Ph. 2021-06-21 2021-06-21 [place] [id number] -2021 [place] 04:09:00 04:09:00 0309 Medical [facility] 2021-06-21 2021-06-21 Tori MM [place] - [id number] [place] 00:00:00 00:00:00 Lizbet Bean Medical Medical FLAVOR EXTRACTOR: [address] [address] , Ph. 2021-06-02 2021-06-02 Outpatient [place] [id number] -2021 [place] 03:48:00 03:48:00 0218 [facility] 2021-06-02 2021-06-02 Tori SANDY [place] - [id number] M [place] 00:00:00 00:00:00 Lizbet Bean Medical Medical FLAVOR EXTRACTOR: [address] [facility] [address], [place] [address] , Ph. 2021-05-22 2021-05-22 [place] [id number] -2021 [place] 12:37:00 12:37:00 0207 Medical Group 2021-05-22 2021-05-22 Outpatient BLANE TOVARGIBBONS, [facility] [id number] [place] 12:36:00 12:36:00 TORI [id number] [facility] 2021-05-22 2021-05-22 Tori SANDY [place] - [id number] [place] 00:00:00 00:00:00 Lizbet Bean Medical Medical FLAVOR EXTRACTOR: [address] [facility] [address], [place] [address] , Ph. 2021-05-10 2021-05-10 [facility] [id number] [place] 05:02:00 05:02:00 JASPAL 0126 [facility] 2021-05-09 2021-05-09 [place] [id number] -2021 [place] 11:18:00 11:18:00 0125 Medical Group 2021-05-09 2021-05-09 Tori SANDY [place] - [id number] [place] 00:00:00 00:00:00 Lizbet Bean Medical Medical FLAVOR EXTRACTOR: [address] [facility] [address], [place] [address] , Ph. 2021-04-12 2021-04-12 [place] [id number] [place] 04:07:00 04:07:00 0124 Medical Group 2021-04-12 2021-04-12 Outpatient Hawkins_M MMG MMG [id number] -2021 [place] 04:07:00 04:07:00 0121 Medical Group 2021-03-23 2021-03-23 [place] [id number] -2020 [place] 04:37:00 04:37:00 1209 Medical Group 2021-03-23 2021-03-23 [place] [id number] -2020 [place] 04:37:00 04:37:00 1216 Medical Group 2021-03-23 2021-03-23 [place] [id number] -2020 [place] 04:37:00 04:37:00 1228 Medical [facility] 2021-03-23 2021-03-23 Tori [facility] [place] - [id number] M [place] 00:00:00 00:00:00 Lizbte Daly [facility] Medical FLAVOR EXTRACTOR: [address] [facility] [address], [place] [address] , Ph. 2020-12-27 2020-12-27 Emergency ER LOYD, [facility] [id number] [place] 15:00:00 15:30:00 NATHAN -[id number] [facility] 2020-09-06 2020-09-06 Emergency ER SAIFI, [facility] [id number] [place] 22:30:00 23:52:00 MADAN -[id number] [facility] 2020-05-19 2020-05-19 Outpatient BLANE GIBBONS, [facility] [id number] [place] 15:17:00 15:17:00 TORI -[id number] [facility] 2020-05-19 2020-05-19 [place] [id number] [place] 03:02:00 03:02:00 0209 [facility] 2020-05-19 2020-05-19 Outpatient Hawkins_M MMG MMG [id number] [place] 03:02:00 03:02:00 0224 [facility] 2020-05-19 2020-05-19 Outpatient Hawkins_M MMG MMG [id number] [place] 03:02:00 03:02:00 0204 Medical Group 2020-05-18 2020-05-18 Outpatient Rutledge_L MMG MMG [id number] [place] 03:00:00 03:00:00 0203 Medical Group 2020-03-02 2020-03-02 Outpatient Rutledge_L MMG MMG [id number] [place] 02:24:00 02:24:00 1118 [facility] 2020-01-29 2020-01-29 Outpatient BLANE CUENCA, [facility] [id number] [place] 14:53:00 14:53:00 ANABEL -[id number] [facility] 2020-01-21 2020-01-21 Outpatient BLANE CUENCA, [facility] [id number] [place] 11:41:00 11:41:00 ANABEL -[id number] [facility] 2020-01-08 2020-01-08 Outpatient AMBREEN_FAR MEHOP MEHOP [id number] MMG MMG [id number] [place] 07:51:00 07:51:00 0718 [facility] 2019-10-30 2019-10-30 Outpatient EL ADIN, [facility] [id number] [place] 15:52:00 15:52:00 MARTINEZ -[id number] [facility] 2019-10-30 2019-10-30 Outpatient Rutledge_L MMG MMG [id number] [place] 04:04:00 04:04:00 0717 [facility] 2019-10-30 2019-10-30 Martinez [facility] [place] - [id number] M [place] 00:00:00 00:00:00 Discovery alida Hernadez MD: 600 [facility] [address], [facility] [place] [address] , Ph. [phone] 2019-09-21 2019-09-21 Emergency ER MENESES, [facility] [id number] [place] 18:37:00 19:38:00 CEASAR -[id number] [facility] 2019-09-20 2019-09-21 Emergency ER GIANNONE, [facility] [id number] [place] 23:30:00 00:21:00 EMILY -[id number] [facility] 2019-09-11 2019-09-11 Emergency ER IRUKE, [facility] [id number] [place] 18:04:00 19:02:00 ENE -[id number] d a [facility] 2019-09-02 2019-09-02 Outpatient Rutledge_L MMG MMG [id number] [place] 05:24:00 05:24:00 0520 [facility] 2019-09-02 2019-09-02 Outpatient Rutledge_L MMG MMG [id number] [place] 05:24:00 05:24:00 0616 [facility] 2019-09-02 2019-09-02 Outpatient Rutledge_L MMG MMG [id number] [place] 05:24:00 05:24:00 0707 [facility] 2019-09-02 2019-09-02 Outpatient Rutledge_L MMG MMG [id number] [place] 05:24:00 05:24:00 0716 [facility] 2019-07-07 2019-07-07 Outpatient Rutledge_L MMG MMG [id number] [place] 09:58:00 09:58:00 0324 Medical Group 2019-07-07 2019-07-07 Outpatient Rutledge_L MMG MMG [id number] [place] 09:58:00 09:58:00 0326 Medical [facility] 2019-07-01 2019-07-01 Outpatient Rutledge_L MMG MMG [id number] [place] 08:57:00 08:57:00 0318 Medical [facility] 2019-07-01 2019-07-01 Anabel MM [place] - [id number] M [place] 00:00:00 00:00:00 George Hoffman Medical Medica toy MD: [address] [address], [place] [address] , Ph. [phone] 2019-06-11 2019-06-11 Outpatient Rutledge_L MMG MMG [id number] [place] 07:31:00 07:31:00 0227 [facility] 2019-06-11 2019-06-11 Out[facility] [id number] [place] 06:04:00 06:04:00 ANABEL -[id number] da [facility] 2019-06-10 2019-06-10 Outpatient Rutledge_L MMG MMG [id number] [place] 01:13:00 01:13:00 0226 [facility] 2019-06-10 2019-06-10 Anabel MMG [place] - [id number] M [place] 00:00:00 00:00:00 George Hoffman Medical Medica toy MD: [address] [address], [place] [address] , Ph. [phone] 2019-06-09 2019-06-09 Outpatient Rutledge_L MMG MMG [id number] [place] 10:05:00 10:05:00 0225 [facility] 2019-05-26 2019-05-26 Outpatient Rutledge_L MMG MMG [id number] [place] 10:08:00 10:08:00 0218 Medical [facility] 2019-05-24 2019-05-24 Outpatient Rutledge_L MMG MMG [id number] [place] 01:23:00 01:23:00 0209 [facility] 2019-05-20 2019-05-20 Outpatient Rutledge_L MMG MMG [id number] [place] 04:23:00 04:23:00 0205 [facility] 2019-05-20 2019-05-20 Anabel MMG [place] - [id number] M [place] 00:00:00 00:00:00 George Hoffman Medical Medica toy MD: [address] [place] [address] , Ph. [phone] 2019-05-15 2019-05-15 Outpatient Rutledge_L MMG MMG [id number] [place] 10:18:00 10:18:00 0204 Medical Group 2019-05-12 2019-05-12 Outpatient Rutledge_L MMG MMG [id number] [place] 02:38:00 02:38:00 0128 [facility] 2019-05-02 2019-05-02 Outpatient Rutledge_L MMG MMG [id number] [place] 10:43:00 10:43:00 0118 Medical Group 2019-04-30 2019-05-01 Inpatient EL LUZ ELENA, [facility] MOB [id number] [place] 05:25:00 09:45:00 ANABEL -[id number] [facility] 2019-04-28 2019-04-28 Outpatient Rutledge_L MMG MMG [id number] [place] 11:48:00 11:48:00 0114 Medical Group 2019-04-28 2019-04-28 Martinez MMG [place] - [id number] M [place] 00:00:00 00:00:00 Discovery alida Hernadez MD: [address] [place] [address] , Ph. [phone] 2019-04-27 2019-04-27 Outpatient Rutledge_L MMG MMG [id number] [place] 11:34:00 11:34:00 0113 Medical Group 2019-04-26 2019-04-26 Outpatient Rutledge_L MMG MMG [id number] [place] 12:05:00 12:05:00 0112 Medical Group 2019-04-24 2019-04-24 Outpatient BLANE STRANGE [facility] [id number] [place] 16:24:00 16:24:00 HARPER -[id number] [facility] 2019-04-24 2019-04-24 Outpatient Rutledge_L MMG MMG [id number] [place] 04:21:00 04:21:00 0110 Medical Group 2019-04-24 2019-04-24 Harper Ewing G [place] - [id number] [place] 00:00:00 00:00:00 Discovery alida Strange WHNP: [address] [address] , Ph. [phone] 2019-04-23 2019-04-23 Outpatient Rutledge_L MMG MMG [id number] [place] 12:43:00 12:43:00 0109 Medical [facility] 2019-04-23 2019-04-23 Martinez MMG [place] - [id number] M [place] 00:00:00 00:00:00 Discovery alida Hernadez MD: [address] [address] , Ph. [phone] 2019-04-19 2019-04-19 Outpatient Rutledge_L MMG MMG [id number] [place] 09:06:00 09:06:00 0105 [facility] 2019-04-19 2019-04-19 Outpatient Rutledge_L MMG MMG [id number] [place] 09:06:00 09:06:00 0108 [facility] 2019-04-16 2019-04-16 Outpatient Rutledge_L MMG MMG [id number] [place] 05:03:00 05:03:00 0102 [facility] 2019-04-16 2019-04-16 Outpatient Rutledge_L MMG MMG [id number] [place] 05:03:00 05:03:00 0103 alida [facility] 2019-04-16 2019-04-16 Martinez [facility] [place] - [id number] M [place] 00:00:00 00:00:00 Discovery alida Hernadez MD: [address] [place] [address] , Ph. [phone] 2019-04-02 2019-04-02 Anabel DU [place] - [id number] M [place] 00:00:00 00:00:00 George Hoffman Medical Medica toy MD: [address] [place] [address] , Ph. [phone] 2019-03-30 2019-03-30 Anabel DU [place] - [id number] M [place] 00:00:00 00:00:00 George Hoffman Medical Medica toy MD: [address] [place] [address] , Ph. [phone] 2019-03-27 2019-03-27 Anabel [facility] [place] - [id number] M [place] 00:00:00 00:00:00 George Hoffman Medical Medica toy MD: [address] [place] [address] , Ph. [phone] 2019-03-09 2019-03-09 Outpatient BLANE STRANGE [facility] [id number] [place] 11:48:00 11:48:00 HARPER [id number] alida [facility] 2019-03-09 2019-03-09 Harper Ewing [facility] [place] - [id number] [place] 00:00:00 00:00:00 Discovery Mio Strange: [address] [place] [address] , Ph. [phone] 2019-03-04 2019-03-04 Outpatient BLANE HERNADEZ [facility] [id number] [place] 15:28:00 15:28:00 MARTINEZ [id number] [facility] 2019-03-04 2019-03-04 Martinez [facility] [place] - [id number] M [place] 00:00:00 00:00:00 Discovery alida Hernadez MD: 600 [facility] [address], [facility] [place] [address] , Ph. [phone] 2018-10-11 2018-10-11 Emergency ER VELASQUEZ, [facility] [id number] [place] 11:26:00 13:55:00 JANNETH -[id number] [facility] 2018-08-09 2018-08-09 Emergency ER TIM, [facility] [id number] [place] 01:09:00 02:33:00 TAYLOR -[id number] [facility] 2018-04-10 2018-04-10 Emergency ER NASRA, [facility] [id number] [place] 16:01:00 17:47:00 SEKOU -[id number] [facility] 2016-12-27 2016-12-27 Emergency ER UGORJI, [facility] [id number] [place] 18:24:00 22:22:00 CLELAMAR -[id number] [facility] 2016-07-24 2016-07-24 Emergency ER BA, ROS [facility] [id number] [place] 18:12:00 23:33:00 -[id number] [facility] 2016-07-10 2016-07-10 Emergency ER VERMA, [facility] [id number] [place] 03:44:00 06:04:00 WASIM -[id number] [facility] 2016-06-11 2016-06-12 Emergency ER BA, ROS [facility] [id number] [place] 22:13:00 01:55:00 -[id number] [facility] 2016-06-09 2016-06-09 Emergency ER LOYD, [facility] [id number] [place] 01:11:00 04:34:00 NATHAN -[id number] [facility] 2016-05-11 2016-05-11 Emergency ER UGORKASSANDRA, [facility] [id number] [place] 16:38:00 18:43:00 CLEMENT -[id number] [facility] Results Test Description Test Time Test Comments Results Result [facility] e Comments MR, ABDOMEN, MRCP 2022-07-28 Unlisted 14:46:00 Reason for Exam - Click CHI Yes and Enter [facility] Reason CENTERName: Heath MODI->No AMRIT : 1995 Sex: F FI NAL [...] to severely 30- 44 G4 Severly decreased 15-2 9 G5 Kidney failure <15Repo rted eGFR is based on the CK D-EPI 2020 equation that d oes not use a race coefficien tEstimated GFR is not as accurate as Creatinine Clearance in pr edicting glomerular filt ration rate. Estimated GFR i s not applicable for dialysis mikayla parker Playback Operator ID - BSHEPATIC FUNCTION [id number] 06:38:11 Test Item Value Reference Range Interpretation [...] code = 97 U/L 6-55 H 347) Playback Operator ID - BSCBC W/PLT COUNT & AUTO [id number] 06:04:32 Test Item Value Reference Range Interpretation [...] (test code = 2801) COMP. METABOLIC PANEL (13219)2022-07-13 18:35:07 Test Item Value Reference Range Interpretation Comments NA (test code = 137 mmol/L 135-145 5116645007) K (test code = 4.4 mmol/L 3.5-5.0 9973678188) CL (test code = 101 mmol/L 98-108 2876630521) CO2 TOTAL (test code 27 mmol/L 23-31 = 3518057268) AGAP (test code = 9 2-16 6178978775) BUN (test code = 13 mg/dL 7-23 5817526987) GLUCOSE (test code = 87 mg/dL 70-110 2829197544) CREATININE (test code 0.66 mg/dL 0.50-1.04 = 6020827723) TOTAL BILI (test code 0.7 mg/dL 0.1-1.1 = 0224563798) CALCIUM (test code = 9.2 mg/dL 8.6-10.6 2910275624) T PROTEIN (test code 7.2 g/dL 6.3-8.2 = 1609696237) ALBUMIN (test code = 4.6 g/dL 3.5-5.0 7365930388) ALK PHOS (test code = 61 U/L 34-122 8423177027) ALTv (test code = 21 U/L 5-35 1742-6) AST(SGOT) (test code 28 U/L 13-40 = 0072414029) eGFR (test code = 110.0 mL/min/1.73m2 2536766806) DEE (test code = DEE) Association of [...] or urine or abnormalities in imaging tests). [facility] 18:34:46 Test Item Value Reference Range Interpretation Comments LIPASE (test code = 7165543187) 38 U/L 0-220 Lab Interpretation (test code = Normal 20946-1) [facility] WITH [id number] 18:21:04 Test Item Value Reference Range Interpretation Comments WBC (test code = 8.73 See_Comment [Automated 0763-2) message] The sy stem which generated this result transmitted reference range : 4.30 - 11.10 10*3/?L. The reference range was not used to interpret this result as normal/abnormal . RBC (test code = 4.73 See_Comment [Automated 854-8) message] The sy stem which generated this [...] RDW-SD (test code = 41.6 fL 39.0-49.9 61061-8) RDW-CV (test code = 14.3 % 12.0-15.5 788-0) PLT (test code = 262 See_Comment [Automated 777-3) message] The sy stem which generated this result transmitted reference range : 166 - 358 10*3/ ?L. The reference r adriana was not used to interpret this result as normal/abnormal . MPV (test code = 10.7 fL 9.5-12.9 49069-9) NRBC/100 WBC (test 0.0 See_Comment [Automat ed code = 6153450991) message] The system which generated this result transmitted reference range : 0.0 - 10.0 /100 WBCs. The refer ence range was not u sed to interpret th is result as normal/abnormal . NRBC x10^3 (test code See_Comment [Auto mated = 6128983308) message] The s ystem which generated this result transmitted reference range : 10*3/?L. The reference range was not used to interpret this result as normal/abnormal . GRAN MAT (NEUT) % 56.1 % (test code = 770-8) IMM GRAN % (test code 0.30 % = 7423988504) LYMPH % (test code = 36.0 % 736-9) MONO % (test code = 4.5 % 5905-5) EOS % (test code = 2.2 % 713-8) BASO % (test code = 0.9 % 706-2) GRAN MAT x10^3(ANC) 4.90 10*3/uL 1.88-7.09 (test code = 3076817557) IMM GRAN x10^3 (test 0.03 10*3/uL 0.00-0.06 code = 3281114721) LYMPH x10^3 (test code 3.14 10*3/uL 1.32-3.29 = 731-0) MONO x10^3 (test code 0.39 10*3/uL 0.33-0.92 = 742-7) EOS x10^3 (test code = 0.19 10*3/uL 0.03-0.39 711-2) BASO x10^3 (test code 0.08 10*3/uL 0.01-0.07 H = 704-7) Lab Interpretation Abnormal (test code = 22094-5) [facility] [id number] 17:54:00 Test Item Value Reference Range Interpretation Comments POCT PREG (test code = 1605) negative On board controls acceptable with C present Line (test code = 3574) Lab Interpretation (test code = Normal 79473-3) [facility] AustinPT/[id number] 09:44:00 Test Item Value Reference Range Interpretation Comments prothrombin time (test code = 10.2 seconds 10.3-12.3 L prothrombin time) INR (test code = INR) < 0.94 [facility] [id number] 09:44:00 Test Item Value Reference Range Interpretation Comments partial thromboplastin time 25.4 seconds 22.5-37.0 (test code = partial thromboplastin time) [id number] 09:44:00 Test Item Value Reference Range Interpretation Comments prothrombin time (test code = 10.2 seconds 10.3-12.3 L prothrombin time) INR (test code = INR) < 0.94 [facility] [id number] 09:44:00 Test Item Value Reference Range Interpretation Comments partial thromboplastin time 25.4 seconds 22.5-37.0 (test code = partial thromboplastin time) [facility] [id number] 09:42:00 Test Item Value Reference Range Interpretation [...] code = 9.7 mg/dL 8.6-10.0 calcium level) [facility] [id number] 09:42:00 Test Item Value Reference Range Interpretation [...] U/L 35-105 code = alkaline phosphatase, total) [facility] [id number] 09:42:00 Test Item Value Reference Range Interpretation [...] code = 9.7 mg/dL 8.6-10.0 calcium level) [facility] [id number] 09:42:00 Test Item Value Reference Range Interpretation [...] U/L 35-105 code = alkaline phosphatase, total) [facility] W Auto Differential panel - [id number] 09:26:00 Test Item Value Reference Range Interpretation [...] NRBC# (test code = NRBC#) 0 K/uL [facility] W Auto Differential panel - [id number] 09:26:00 Test Item Value Reference Range Interpretation [...] NRBC# (test code = NRBC#) 0 K/uL [facility] B12 folate [id number] 17:28:00 Test Item Value Reference Range Interpretation Comments vitamin B12 (test code = vitamin 694.7 pg/mL 211-946 B12) folate (test code = folate) 6.69 NG/mL 4.78-24.2 [facility] [id number] 17:28:00 Test Item Value Reference Range Interpretation Comments vitamin B12 (test code = vitamin 694.7 pg/mL 211-946 B12) folate (test code = folate) 6.69 NG/mL 4.78-24.2 [facility] 17:08:00 Test Item Value Reference Range Interpretation Comments lipase (test code = lipase) 18 U/L 13-60 [facility] 17:08:00 Test Item Value Reference Range Interpretation Comments ferritin (test code = ferritin) < 28.5 13-150 [facility] [id number] 17:08:00 Test Item Value Reference Range Interpretation Comments iron (fe) (test code = iron (fe)) 27 ug/dL 37-145 L total iron binding capacity (test 301 ug/dL 260-445 code = total iron binding capacity) % saturation (test code = % 9 % 12-45 L saturation) [facility] 17:08:00 Test Item Value Reference Range Interpretation Comments lipase (test code = lipase) 18 U/L [facility]ferritin2023-[facility] 17:08:00 Test Item Value Reference Range Interpretation Comments ferritin (test code = ferritin) < 28.5 13-150 [facility] [id number] 17:08:00 Test Item Value Reference Range Interpretation Comments iron (fe) (test code = iron (fe)) 27 ug/dL 37-145 L total iron binding capacity (test 301 ug/dL 260-445 code = total iron binding capacity) % saturation (test code = % 9 % 12-45 L saturation) [facility] CenterAmylase [Enzymatic activity/volume] in Serum or Plasma 2022-06-04 00:00:00 Test Item Value Reference Range Interpretation Comments amylase level (test code = amylase 61 U/L 28-100 level) [facility] [Enzymatic activity/volume] in Serum or Plasma 2022-06-04 00:00:00 Test Item Value Reference Range Interpretation Comments amylase level (test code = amylase 61 U/L 28-100 level) [facility]flu/RSV/covid [id number] 22:40:00 Test Item Value Reference Range Interpretation Comments RSV xpress (test code = RSV RSV negative xpress) covid-19 inhouse (test code = covid-19 inhouse) flu A (test code = flu A) flu A negative flu B (test code = flu B) flu B negative [facility]flu/[facility]V/covid [id number] 22:40:00 Test Item Value Reference Range Interpretation Comments RSV xpress (test code = RSV RSV negative xpress) covid-19 inhouse (test code = covid-19 inhouse) flu A (test code = flu A) flu A negative flu B (test code = flu B) flu B negative [facility] A [id number] 22:25:00 Test Item Value Reference Range Interpretation Comments strep A xpress (test strep A not detected code = strep A xpress) [facility] A [id number] 22:25:00 Test Item Value Reference Range Interpretation Comments strep A xpress (test strep A not detected code = strep A xpress) [facility] GroupInfluenza virus A and B and SARS-CoV+SARS-CoV-2 (COVID- 19) Ag panel - Upper respiratory specimen by Rapid [id number] 14:23:00 Test Item Value Reference Range Interpretation Comments RAPID SARS COV (test code = RAPID negative SARS COV) RAPID FLU A (test code = RAPID FLU negative A) RAPID FLU B (test code = RAPID FLU negative B) [facility] GroupInfluenza virus A and B and SARS-CoV+SARS-CoV-2 (COVID- 19) Ag panel - Upper respiratory specimen by Rapid [id number] 14:23:00 Test Item Value Reference Range Interpretation Comments RAPID SARS COV (test code = RAPID negative SARS COV) RAPID FLU A (test code = RAPID FLU negative A) RAPID FLU B (test code = RAPID FLU negative B) [facility], [id number] 12:10:54 Test Item Value Reference Range Interpretation Comments Strep Result (test code = Strep positive Result) [facility], [id number] 12:10:54 Test Item Value Reference Range Interpretation Comments Strep Result (test code = Strep positive Result) [facility], [id number] 12:10:54 Test Item Value Reference Range Interpretation Comments Strep Result (test code = Strep positive Result) [facility] GroupInfluenza virus A and B and SARS-CoV+SARS-CoV-2 (COVID- 19) Ag panel - Upper respiratory specimen by Rapid [id number] 16:31:00 Test Item Value Reference Range Interpretation Comments RAPID SARS COV (test code = RAPID negative SARS COV) RAPID FLU A (test code = RAPID FLU negative A) RAPID FLU B (test code = RAPID FLU negative B) [facility]pregnancy test, [id number] 16:06:15 Test Item Value Reference Range Interpretation Comments Test (test code = negative Test) [facility]pregnancy test, [id number] 16:06:15 Test Item Value Reference Range Interpretation Comments Test (test code = negative Test) [facility] CenterUrinalysis complete W Reflex Culture panel - Urine 2021-10-05 07:44:00 Test Item Value Reference Range Interpretation Comments Color of Urine by Auto (test code lt. yellow = 34114-3) Appearance of Urine (test code = SL cloudy clear 5767-9) Glucose [Mass/volume] in Urine negative negative (test code = 2350-7) bilirubin, urine (test code = negative negative bilirubin, urine) ketone, urine (test code = negative negative ketone, urine) Specific gravity of Urine by 1.015 1.003-1.030 Automated test strip (test code = 08633-0) Hemoglobin [Presence] in Urine by small negative H Test strip (test code = 5794-3) pH of Urine (test code = 2756-5) 6.500 5-9 protein urine (UA) (test code = negative negative protein urine (UA)) Urobilinogen [Presence] in Urine 0.2 E.U./dL 0.2-1.0 (test code = 13803-1) Nitrite [Presence] in Urine by positive negative Test strip (test code = 5802-4) urine leukocyte esterase (test =1 negative H code = urine leukocyte esterase) Erythrocytes [Presence] in Urine =4-6 0-5 H (test code = 66296-9) WBC, urine (test code = WBC, =5-9 0-5 H urine) bacteria, urine (test code = full field none detect H bacteria, urine) Casts [#/area] in Urine sediment =2-5 none detect by Automated count (test code = 26616-1) urine culture added? (test code = yes urine culture added?) squamous epithelial cell urine =6-10 0-5 (test code = squamous epithelial cell urine) mucus, urine (test code = mucus, =1 none detect urine) [facility] W Auto Differential panel - [id number] 07:44:00 Test Item Value Reference Range Interpretation Comments white blood count (test code = 6.7 K/uL 4.0-11.5 white blood count) red blood count (test code = red 4.89 M/uL 3.80-5.20 blood count) hemoglobin (test code = 12.5 g/dL 10.5-15.7 hemoglobin) hematocrit (test code = 40.6 % 34.0-50.0 hematocrit) MCV [Entitic volume] (test code = 83.0 fL 86.0-100.0 L 46310-2) mean corpuscular hemoglobin (test 25.6 pg 26.2-33.4 [...] 44.4-80.1 leukocytes in Blood (test code = 67443-2) Immature granulocytes [#/volume] 0.01 K/uL 0.00-0.03 in Blood (test code = 85345-5) lymphocyte% (test code = 38.8 % 10.0-50.0 lymphocyte%) mono % (test code = mono %) 6.9 % 3.6-12.0 eos % (test code = eos %) 1.5 % 0.0-5.4 basophil % (test code = basophil 1.1 % 0.1-1.2 %) Band form neutrophils [#/volume] 3.43 K/uL 1.56-6.13 in Blood (test code = 44137-1) Lymphocytes [#/volume] in Specimen 2.58 K/uL 1.18-3.74 by Automated count (test code = 81042-0) mono # (test code = mono #) 0.46 K/uL 0.24-0.86 eos # (test code = eos #) 0.10 K/uL 0.04-0.36 basophil # (test code = basophil 0.07 K/uL 0.01-0.08 #) NRBC% (test code = NRBC%) 0 /100 WBC 0-0.2 NRBC# (test code = NRBC#) 0 K/uL [facility] CenterComprehensive metabolic 2000 panel - Serum or [...] Serum or Plasma (test code = 6768-6) [facility] CenterLipid 1996 panel - Serum or [id number] 07:44:00 Test Item Value Reference Range Interpretation Comments cholesterol level (test code = 145 mg/dL 150-200 L cholesterol level) triglycerides level (test code = 57 mg/dL <150 triglycerides level) HDL cholesterol (test code = HDL 66 mg/dL >65 cholesterol) LDL cholesterol direct (test code = 69 mg/dL <100 LDL cholesterol direct) cholesterol risk ratio (test code = 2.196 cholesterol risk ratio) [facility] CenterUrinalysis complete W Reflex Culture panel - Urine 2021-10-05 07:44:00 Test Item Value Reference Range Interpretation Comments Color of Urine by Auto (test code lt. yellow = 56548-8) Appearance of Urine (test code = SL cloudy clear 5767-9) Glucose [Mass/volume] in Urine negative negative (test code = 2350-7) bilirubin, urine (test code = negative negative bilirubin, urine) ketone, urine (test code = negative negative ketone, urine) Specific gravity of Urine by 1.015 1.003-1.030 Automated test strip (test code = 84890-0) Hemoglobin [Presence] in Urine by small negative H Test strip (test code = 5794-3) pH of Urine (test code = 2756-5) 6.500 5-9 protein urine (UA) (test code = negative negative protein urine (UA)) Urobilinogen [Presence] in Urine 0.2 E.U./dL 0.2-1.0 (test code = 58472-9) Nitrite [Presence] in Urine by positive negative Test strip (test code = 5802-4) urine leukocyte esterase (test =1 negative H code = urine leukocyte esterase) Erythrocytes [Presence] in Urine =4-6 0-5 H (test code = 22742-8) WBC, urine (test code = WBC, =5-9 0-5 H urine) bacteria, urine (test code = full field none detect H bacteria, urine) Casts [#/area] in Urine sediment =2-5 none detect by Automated count (test code = 54715-3) urine culture added? (test code = yes urine culture added?) squamous epithelial cell urine =6-10 0-5 (test code = squamous epithelial cell urine) mucus, urine (test code = mucus, =1 none detect urine) [facility] W Auto Differential panel - [id number] 07:44:00 Test Item Value Reference Range Interpretation Comments white blood count (test code = 6.7 K/uL 4.0-11.5 white blood count) red blood count (test code = red 4.89 M/uL 3.80-5.20 blood count) hemoglobin (test code = 12.5 g/dL 10.5-15.7 hemoglobin) hematocrit (test code = 40.6 % 34.0-50.0 hematocrit) MCV [Entitic volume] (test code = 83.0 fL 86.0-100.0 L 76590-6) mean corpuscular hemoglobin (test 25.6 pg 26.2-33.4 [...] 44.4-80.1 leukocytes in Blood (test code = 89452-7) Immature granulocytes [#/volume] 0.01 K/uL 0.00-0.03 in Blood (test code = 04555-2) lymphocyte% (test code = 38.8 % 10.0-50.0 lymphocyte%) mono % (test code = mono %) 6.9 % 3.6-12.0 eos % (test code = eos %) 1.5 % 0.0-5.4 basophil % (test code = basophil 1.1 % 0.1-1.2 %) Band form neutrophils [#/volume] 3.43 K/uL 1.56-6.13 in Blood (test code = 97322-0) Lymphocytes [#/volume] in Specimen 2.58 K/uL 1.18-3.74 by Automated count (test code = 80682-4) mono # (test code = mono #) 0.46 K/uL 0.24-0.86 eos # (test code = eos #) 0.10 K/uL 0.04-0.36 basophil # (test code = basophil 0.07 K/uL 0.01-0.08 #) NRBC% (test code = NRBC%) 0 /100 WBC 0-0.2 NRBC# (test code = NRBC#) 0 K/uL [facility] CenterComprehensive metabolic 2000 panel - Serum or [...] Serum or Plasma (test code = 6768-6) [facility] CenterLipid 1996 panel - Serum or [id number] 07:44:00 Test Item Value Reference Range Interpretation Comments cholesterol level (test code = 145 mg/dL 150-200 L cholesterol level) triglycerides level (test code = 57 mg/dL <150 triglycerides level) HDL cholesterol (test code = HDL 66 mg/dL >65 cholesterol) LDL cholesterol direct (test code = 69 mg/dL <100 LDL cholesterol direct) cholesterol risk ratio (test code = 2.196 cholesterol risk ratio) [facility] CenterBacteria identified in Urine by [id number] 07:44:00Bacteria Ur CultDiamond Grove Centerantibiotic sensitivity testing, [id number] 07:44:00 Test Item Value Reference Range Interpretation [...] Minimum inhibitory concentration (GUSTAVO) (test code = 06435-6) cefTAZidime [Susceptibility] by <=2 Minimum inhibitory concentration (GUSTAVO) (test code = 133-9) cefTRIAXone [Susceptibility] by <=1 Minimum inhibitory concentration (GUSTAVO) (test code = 141-2) Ciprofloxacin [Susceptibility] by <=0.25 Minimum inhibitory concentration (GUSTAVO) (test code = 185-9) Ampicillin+Sulbactam =8/4 [Susceptibility] by Minimum inhibitory concentration (GUSTAVO) (test code = 32-3) Ertapenem [Susceptibility] by <=0.25 Minimum inhibitory concentration (GUSTAVO) (test code = 16629-5) Aztreonam [Susceptibility] by <=2 Minimum inhibitory concentration (GUSTAVO) (test code = 44-8) Cefepime [Susceptibility] by Minimum <=1 inhibitory concentration (GUSTAVO) (test code = 6644-9) Meropenem [Susceptibility] by <=0.5 Minimum inhibitory concentration (GUSTAVO) (test code = 6652-2) Moxifloxacin [Susceptibility] by <=1 Minimum inhibitory concentration (GUSTAVO) (test code = 45337-0) Amikacin [Susceptibility] by Minimum <=8 inhibitory concentration (GUSTAVO) (test code = 12-5) Piperacillin+Tazobactam =4/4 [Susceptibility] by Minimum inhibitory concentration (GUSTAVO) (test code = 412-7) Ceftaroline [Susceptibility] by <=0.25 Minimum inhibitory concentration (GUSTAVO) (test code = 82577-5) Tigecycline [Susceptibility] by 2 ug/mL Minimum inhibitory concentration (GUSTAVO) (test code = 68248-5) [facility] CenterErythrocyte sedimentation [id number] 00:00:00 Test Item Value Reference Range Interpretation Comments erythrocyte sedimentation rate (test 8 mm/HR 0.00-20 code = erythrocyte sedimentation rate) [facility] CenterHemoglobin A1c [Mass/volume] in [id number] 00:00:00 Test Item Value Reference Range Interpretation Comments Hemoglobin A1c [Mass/volume] in Blood 5.4 % 4.0-6.0 (test code = 66629-3) [facility] CenterThyrotropin [Units/volume] in Serum or [id number] 00:00:00 Test Item Value Reference Range Interpretation Comments Thyrotropin [Units/volume] in 0.94 uIU/mL 0.36-3.74 Serum or Plasma (test code = 3016-3) [facility] CenterThyroxine (T4) [Mass/volume] in Serum or [id number] 00:00:00 Test Item Value Reference Range Interpretation Comments T4 (test code = T4) 7.1 ug/dL 4.5-11.7 [facility] CenterErythrocyte sedimentation [id number] 00:00:00 Test Item Value Reference Range Interpretation Comments erythrocyte sedimentation rate (test 8 mm/HR 0.00-20 code = erythrocyte sedimentation rate) [facility] CenterHemoglobin A1c/Hemoglobin.total in [id number] 00:00:00 Test Item Value Reference Range Interpretation Comments Hemoglobin A1c [Mass/volume] in Blood 5.4 % 4.0-6.0 (test code = 19794-0) [facility] CenterThyrotropin [Units/volume] in Serum or [id number] 00:00:00 Test Item Value Reference Range Interpretation Comments Thyrotropin [Units/volume] in 0.94 uIU/mL 0.36-3.74 Serum or Plasma (test code = 3016-3) [facility] CenterThyroxine (T4) [Mass/volume] in Serum or [id number] 00:00:00 Test Item Value Reference Range Interpretation Comments T4 (test code = T4) 7.1 ug/dL 4.5-11.7 [facility] Centerrapid strep group A, [id number] 17:41:17 Test Item Value Reference Range Interpretation Comments Strep Result (test code = Strep negative Result) [facility] Centerrapid strep group A, [id number] 17:41:17 Test Item Value Reference Range Interpretation Comments Strep Result (test code = Strep negative Result) [facility] CenterInfluenza virus A and B and SARS-CoV+SARS-CoV-2 (COVID- 19) Ag panel - Upper respiratory specimen by Rapid [id number] 16:52:00 Test Item Value Reference Range Interpretation Comments RAPID SARS COV (test code = RAPID negative SARS COV) RAPID FLU A (test code = RAPID FLU negative A) RAPID FLU B (test code = RAPID FLU negative B) [facility] CenterInfluenza virus A and B and SARS-CoV+SARS-CoV-2 (COVID- 19) Ag panel - Upper respiratory specimen by Rapid [id number] 16:52:00 Test Item Value Reference Range Interpretation Comments RAPID SARS COV (test code = RAPID negative SARS COV) RAPID FLU A (test code = RAPID FLU negative A) RAPID FLU B (test code = RAPID FLU negative B) [facility] W Auto Differential panel - [id number] 10:41:00 Test Item Value Reference Range Interpretation Comments white blood count (test code = 8.4 K/uL 4.0-11.5 white blood count) red blood count (test code = red 5.53 M/uL 3.80-5.20 H blood count) hemoglobin (test code = 14.3 g/dL 10.5-15.7 hemoglobin) hematocrit (test code = 45.4 % 34.0-50.0 hematocrit) MCV [Entitic volume] (test code = 82.1 fL 86.0-100.0 L 98201-2) mean corpuscular hemoglobin (test 25.9 pg 26.2-33.4 [...] 44.4-80.1 leukocytes in Blood (test code = 22696-6) Immature granulocytes [#/volume] 0.02 K/uL 0.00-0.03 in Blood (test code = 99383-9) lymphocyte% (test code = 38.7 % 10.0-50.0 lymphocyte%) mono % (test code = mono %) 5.3 % 3.6-12.0 eos % (test code = eos %) 1.4 % 0.0-5.4 Basophils/100 leukocytes in 0.6 % 0.1-1.2 Specimen (test code = 62931-9) Band form neutrophils [#/volume] 4.53 K/uL 1.56-6.13 in Blood (test code = 51489-6) Lymphocytes [#/volume] in Specimen 3.27 K/uL 1.18-3.74 by Automated count (test code = 38843-3) mono # (test code = mono #) 0.45 K/uL 0.24-0.86 eos # (test code = eos #) 0.12 K/uL 0.04-0.36 basophil # (test code = basophil 0.05 K/uL 0.01-0.08 #) NRBC% (test code = NRBC%) 0 /100 WBC 0-0.2 NRBC# (test code = NRBC#) 0 K/uL [facility] CenterComprehensive metabolic 2000 panel - Serum or [...] Serum or Plasma (test code = 6768-6) [facility] CenterPT/[id number] 10:41:00 Test Item Value Reference Range Interpretation Comments prothrombin time (test code = 10.0 seconds 10.3-12.3 L prothrombin time) INR in Blood by Coagulation <0.94 assay (test code = 19637-0) [facility] CenterDifferential panel, method unspecified - [id number] 00:00:00NeutrophilsBandLymphocyteAtypical LymphMonocyteEosinophilBasophilMyelocyteBlastsAbs Neutrophil Count(Man)Abs Lymph Count (Man)Abs Monocyte Count (Man)Abs Eosinophil Count (Man)Abs Basophil Count (Man)Platelet EstimatePlatelet MorphologyAnisocytosisMacrocytosisStomatocyteToxic GranulationMatagoSimpson General HospitalChoriogonadotropin ( test) [Presence] in Serum or [id number] 00:00:00 Test Item Value Reference Range Interpretation Comments Choriogonadotropin.beta subunit negative neg ( test) [Presence] in Serum or Plasma (test code = 2110-5) [facility] Centerpartial thromboplastin [id number] 00:00:00 Test Item Value Reference Range Interpretation Comments INR in Blood by Coagulation 27.6 seconds 22.5-37.0 assay (test code = 78243-8) [facility] CenterInfluenza virus A and B and SARS-CoV+SARS-CoV-2 (COVID- 19) Ag panel - Upper respiratory specimen by Rapid [id number] 14:30:06 Test Item Value Reference Range Interpretation Comments RAPID SARS COV (test code = RAPID negative SARS COV) RAPID FLU A (test code = RAPID FLU negative A) RAPID FLU B (test code = RAPID FLU negative B) [facility] GroupInfluenza virus A and B and SARS-CoV+SARS-CoV-2 (COVID- 19) Ag panel - Upper respiratory specimen by Rapid [id number] 14:30:06 Test Item Value Reference Range Interpretation Comments RAPID SARS COV (test code = RAPID negative SARS COV) RAPID FLU A (test code = RAPID FLU negative A) RAPID FLU B (test code = RAPID FLU negative B) [facility] GroupInfluenza virus A and B and SARS-CoV+SARS-CoV-2 (COVID- 19) Ag panel - Upper respiratory specimen by Rapid [id number] 14:30:06 Test Item Value Reference Range Interpretation Comments RAPID SARS COV (test code = RAPID negative SARS COV) RAPID FLU A (test code = RAPID FLU negative A) RAPID FLU B (test code = RAPID FLU negative B) [facility], [id number] 14:29:58 Test Item Value Reference Range Interpretation Comments Strep Result (test code = Strep positive Result) [facility], [id number] 14:29:58 Test Item Value Reference Range Interpretation Comments Strep Result (test code = Strep positive Result) [facility], [id number] 14:29:58 Test Item Value Reference Range Interpretation Comments Strep Result (test code = Strep positive Result) [facility], [id number] 15:38:01 Test Item Value Reference Range Interpretation Comments Strep Result (test code = Strep negative Result) [facility], [id number] 15:38:01 Test Item Value Reference Range Interpretation Comments Strep Result (test code = Strep negative Result) [facility], [id number] 15:38:01 Test Item Value Reference Range Interpretation Comments Strep Result (test code = Strep negative Result) [facility], [id number] 15:38:01 Test Item Value Reference Range Interpretation Comments Strep Result (test code = Strep negative Result) [facility], [id number] 15:56:00 Test Item Value Reference Range Interpretation Comments Strep Result (test code = Strep positive Result) [facility] strep group A, [id number] 15:56:00 Test Item Value Reference Range Interpretation Comments Strep Result (test code = Strep positive Result) [facility] CenterUrinalysis macro (dipstick) panel - [id number] 15:37:27 Test Item Value Reference Range Interpretation Comments Leukocytes (test code = Leukocytes) Trace Nitrite (test code = Nitrite) negative Urobilinogen (test code = 1 Urobilinogen) Protein (test code = Protein) Negative pH (test code = pH) 7.0 Blood (test code = Blood) Negative Specific [place] (test code = 1.020 Specific [place]) Ketone (test code = Ketone) Negative Bilirubin (test code = Bilirubin) Negative Glucose (test code = Glucose) Negative Appearance (test code = Appearance) Clear Color (test code = Color) Yellow [facility] CenterCB W Auto Differential panel - [id number] 12:16:00 Test Item Value Reference Range Interpretation Comments white blood count (test code = 7.3 K/uL 4.0-11.5 white blood count) red blood count (test code = red 5.06 M/uL 3.80-5.20 blood count) hemoglobin (test code = 12.5 g/dL 10.5-15.7 hemoglobin) hematocrit (test code = 41.3 % 34.0-50.0 hematocrit) Erythrocyte mean corpuscular 81.6 fL 86-100 L volume [Entitic volume] (test code = 67173-4) mean corpuscular hemoglobin (test 24.7 pg 26.2-33.4 [...] 44.4-80.1 leukocytes in Blood (test code = 66090-2) Granulocytes Immature [#/volume] 0.0 K/uL 0.0-0.03 in Blood (test code = 82956-7) lymphocyte% (test code = 37.9 % 10.0-50.0 lymphocyte%) mono % (test code = mono %) 7.4 % 3.6-12.0 eos % (test code = eos %) 3.0 % 0.0-5.4 Basophils/100 leukocytes in 0.5 % 0.1-1.2 Unspecified specimen (test code = 71482-9) Neutrophils.band form [#/volume] 3.73 K/uL 1.56-6.13 in Blood (test code = 75895-4) Lymphocytes [#/volume] in 2.8 K/uL 1.18-3.74 Unspecified specimen by Automated count (test code = 41331-7) mono # (test code = mono #) 0.54 K/uL 0.24-0.86 eos # (test code = eos #) 0.22 K/uL 0.04-0.36 basophil # (test code = basophil 0.04 K/uL 0.01-0.08 #) NRBC% (test code = NRBC%) 0 /100 WBC 0-0.2 NRBC# (test code = NRBC#) 0 K/uL [facility] Centerdifferential panel, [id number] 12:16:00 NeutrophilsLymphocyteAtypical LymphMonocyteEosinophilBasophilPlatelet EstimateDifferential comment-PMaNorthwest Mississippi Medical CenterChoriogonadotropin.beta subunit [Units/volume] in Serum or [id number] 12:16:00 Test Item Value Reference Range Interpretation Comments HCG quantitative (test code = HCG <0.1 0-5 quantitative) [facility] CenterUrinalysis macro (dipstick) panel - [id number] 11:31:00 Test Item Value Reference Range Interpretation Comments Leukocytes (test code = Leukocytes) Large Nitrite (test code = Nitrite) negative Urobilinogen (test code = .2 Urobilinogen) Protein (test code = Protein) 30 pH (test code = pH) 8.0 Blood (test code = Blood) Small Specific [place] (test code = 1.020 Specific [place]) Ketone (test code = Ketone) Negative Bilirubin (test code = Bilirubin) Negative Glucose (test code = Glucose) Negative Appearance (test code = Appearance) Clear Color (test code = Color) Yellow [facility] CenterUrinalysis macro (dipstick) panel - [id number] 11:31:00 Test Item Value Reference Range Interpretation Comments Leukocytes (test code = Leukocytes) Large Nitrite (test code = Nitrite) negative Urobilinogen (test code = .2 Urobilinogen) Protein (test code = Protein) 30 pH (test code = pH) 8.0 Blood (test code = Blood) Small Specific [place] (test code = 1.020 Specific [place]) Ketone (test code = Ketone) Negative Bilirubin (test code = Bilirubin) Negative Glucose (test code = Glucose) Negative Appearance (test code = Appearance) Clear Color (test code = Color) Yellow [facility] CenterUrinalysis macro (dipstick) panel - [id number] 11:31:00 Test Item Value Reference Range Interpretation Comments Leukocytes (test code = Leukocytes) Large Nitrite (test code = Nitrite) negative Urobilinogen (test code = .2 Urobilinogen) Protein (test code = Protein) 30 pH (test code = pH) 8.0 Blood (test code = Blood) Small Specific [place] (test code = 1.020 Specific [place]) Ketone (test code = Ketone) Negative Bilirubin (test code = Bilirubin) Negative Glucose (test code = Glucose) Negative Appearance (test code = Appearance) Clear Color (test code = Color) [facility] - [id number] 05:43:00 Test Item Value Reference Range Interpretation [...] L volume [Entitic volume] (test code = 38864-8) mean corpuscular hemoglobin (test 25.3 pg 26.2-33.4 [...] 44.4-80.1 leukocytes in Blood (test code = 76777-3) Granulocytes Immature [#/volume] 0.1 K/uL 0.0-0.03 H in Blood (test code = 16106-6) lymphocyte% (test code = 26.4 % 10.0-50.0 lymphocyte%) mono % (test code = mono %) 6.4 % 3.6-12.0 eos % (test code = eos %) 0.7 % 0.0-5.4 Basophils/100 leukocytes in 0.2 % 0.1-1.2 Unspecified specimen (test code = 51168-5) Neutrophils.band form [#/volume] 8.32 K/uL 1.56-6.13 H in Blood (test code = 16779-0) Lymphocytes [#/volume] in 3.3 K/uL 1.18-3.74 Unspecified specimen by Automated count (test code = 79166-1) mono # (test code = mono #) 0.81 K/uL 0.24-0.86 eos # (test code = eos #) 0.09 K/uL 0.04-0.36 basophil # (test code = basophil 0.03 K/uL 0.01-0.08 #) NRBC% (test code = NRBC%) 0 /100 WBC 0-0.2 NRBC# (test code = NRBC#) 0 K/uL [facility] W Auto Differential panel - [id number] 05:43:00 Test Item Value Reference Range Interpretation [...] L volume [Entitic volume] (test code = 79775-0) mean corpuscular hemoglobin (test 25.3 pg 26.2-33.4 [...] 44.4-80.1 leukocytes in Blood (test code = 43137-8) Granulocytes Immature [#/volume] 0.1 K/uL 0.0-0.03 H in Blood (test code = 04040-2) lymphocyte% (test code = 26.4 % 10.0-50.0 lymphocyte%) mono % (test code = mono %) 6.4 % 3.6-12.0 eos % (test code = eos %) 0.7 % 0.0-5.4 Basophils/100 leukocytes in 0.2 % 0.1-1.2 Unspecified specimen (test code = 61851-0) Neutrophils.band form [#/volume] 8.32 K/uL 1.56-6.13 H in Blood (test code = 33191-3) Lymphocytes [#/volume] in 3.3 K/uL 1.18-3.74 Unspecified specimen by Automated count (test code = 46721-8) mono # (test code = mono #) 0.81 K/uL 0.24-0.86 eos # (test code = eos #) 0.09 K/uL 0.04-0.36 basophil # (test code = basophil 0.03 K/uL 0.01-0.08 #) NRBC% (test code = NRBC%) 0 /100 WBC 0-0.2 NRBC# (test code = NRBC#) 0 K/uL [facility] Auto Differential panel - [id number] 04:53:00 Test Item Value Reference Range Interpretation Comments white blood count (test code = 9.5 K/uL 4.0-11.5 white blood count) red blood count (test code = red 3.83 M/uL 3.80-5.20 blood count) hemoglobin (test code = 9.7 g/dL 10.5-15.7 L hemoglobin) hematocrit (test code = 31.4 % 34.0-50.0 L hematocrit) Erythrocyte mean corpuscular 82.0 fL 86-100 L volume [Entitic volume] (test code = 59332-7) mean corpuscular hemoglobin (test 25.3 pg 26.2-33.4 [...] 44.4-80.1 leukocytes in Blood (test code = 71677-7) Granulocytes Immature [#/volume] 0.1 K/uL 0.0-0.03 H in Blood (test code = 15297-7) lymphocyte% (test code = 30.9 % 10.0-50.0 lymphocyte%) mono % (test code = mono %) 7.2 % 3.6-12.0 eos % (test code = eos %) 0.3 % 0.0-5.4 Basophils/100 leukocytes in 0.2 % 0.1-1.2 Unspecified specimen (test code = 13434-9) Neutrophils.band form [#/volume] 5.77 K/uL 1.56-6.13 in Blood (test code = 67166-1) Lymphocytes [#/volume] in 2.9 K/uL 1.18-3.74 Unspecified specimen by Automated count (test code = 36080-5) mono # (test code = mono #) 0.68 K/uL 0.24-0.86 eos # (test code = eos #) 0.03 K/uL 0.04-0.36 L basophil # (test code = basophil 0.02 K/uL 0.01-0.08 #) NRBC% (test code = NRBC%) 0 /100 WBC 0-0.2 NRBC# (test code = NRBC#) 0 K/uL [facility] Serum by [id number] 04:53:00 Test Item Value Reference Range Interpretation Comments Reagin Ab [Presence] in Serum by nonreactive nonreactive RPR (test code = 45134-4) [facility] surface Ag [Presence] in Serum 2019-04-30 04:53:00 Test Item Value Reference Range Interpretation Comments .hepatitis B surface antigen (test negative negative code = .hepatitis B surface antigen) [facility] W Auto Differential panel - [id number] 04:53:00 Test Item Value Reference Range Interpretation Comments white blood count (test code = 9.5 K/uL 4.0-11.5 white blood count) red blood count (test code = red 3.83 M/uL 3.80-5.20 blood count) hemoglobin (test code = 9.7 g/dL 10.5-15.7 L hemoglobin) hematocrit (test code = 31.4 % 34.0-50.0 L hematocrit) Erythrocyte mean corpuscular 82.0 fL 86-100 L volume [Entitic volume] (test code = 30529-4) mean corpuscular hemoglobin (test 25.3 pg 26.2-33.4 [...] 44.4-80.1 leukocytes in Blood (test code = 76302-4) Granulocytes Immature [#/volume] 0.1 K/uL 0.0-0.03 H in Blood (test code = 66531-8) lymphocyte% (test code = 30.9 % 10.0-50.0 lymphocyte%) mono % (test code = mono %) 7.2 % 3.6-12.0 eos % (test code = eos %) 0.3 % 0.0-5.4 Basophils/100 leukocytes in 0.2 % 0.1-1.2 Unspecified specimen (test code = 88325-4) Neutrophils.band form [#/volume] 5.77 K/uL 1.56-6.13 in Blood (test code = 04309-2) Lymphocytes [#/volume] in 2.9 K/uL 1.18-3.74 Unspecified specimen by Automated count (test code = 49778-5) mono # (test code = mono #) 0.68 K/uL 0.24-0.86 eos # (test code = eos #) 0.03 K/uL 0.04-0.36 L basophil # (test code = basophil 0.02 K/uL 0.01-0.08 #) NRBC% (test code = NRBC%) 0 /100 WBC 0-0.2 NRBC# (test code = NRBC#) 0 K/uL [facility] in Serum by [id number] 04:53:00 Test Item Value Reference Range Interpretation Comments Reagin Ab [Presence] in Serum by nonreactive nonreactive RPR (test code = 93354-1) [facility] surface Ag [Presence] in Serum 2019-04-30 04:53:00 Test Item Value Reference Range Interpretation Comments .hepatitis B surface antigen (test negative negative code = .hepatitis B surface antigen) [facility] macro (dipstick) panel - [id number] 10:17:40 Test Item Value Reference Range Interpretation Comments Leukocytes (test code = Leukocytes) Trace Nitrite (test code = Nitrite) negative Urobilinogen (test code = .2 Urobilinogen) Protein (test code = Protein) Trace pH (test code = pH) 6.5 Blood (test code = Blood) Negative Specific [place] (test code = 1.015 Specific [place]) Ketone (test code = Ketone) Negative Bilirubin (test code = Bilirubin) Negative Glucose (test code = Glucose) Negative Appearance (test code = Appearance) Clear Color (test code = Color) Yellow [facility] (dipstick) panel - [id number] 10:17:40 Test Item Value Reference Range Interpretation Comments Leukocytes (test code = Leukocytes) Trace Nitrite (test code = Nitrite) negative Urobilinogen (test code = .2 Urobilinogen) Protein (test code = Protein) Trace pH (test code = pH) 6.5 Blood (test code = Blood) Negative Specific [place] (test code = 1.015 Specific [place]) Ketone (test code = Ketone) Negative Bilirubin (test code = Bilirubin) Negative Glucose (test code = Glucose) Negative Appearance (test code = Appearance) Clear Color (test code = Color) Yellow [facility] (dipstick) panel - [id number] 10:17:40 Test Item Value Reference Range Interpretation Comments Leukocytes (test code = Leukocytes) Trace Nitrite (test code = Nitrite) negative Urobilinogen (test code = .2 Urobilinogen) Protein (test code = Protein) Trace pH (test code = pH) 6.5 Blood (test code = Blood) Negative Specific [place] (test code = 1.015 Specific [place]) Ketone (test code = Ketone) Negative Bilirubin (test code = Bilirubin) Negative Glucose (test code = Glucose) Negative Appearance (test code = Appearance) Clear Color (test code = Color) Yellow [facility] panel [id number] 10:06:43 Test Item Value Reference Range Interpretation Comments Amniotic Fluid Index (test code = 2 (14.5) Amniotic Fluid Index) Tone (test code = Tone) 2 Breathing (test code = 2 Breathing) Movement (test code = 2 Movement) Non-Stress Test (test code = 2 Non-Stress Test) [facility] Biophysical profile panel [id number] 10:06:43 Test Item Value Reference Range Interpretation Comments Amniotic Fluid Index (test code = 2 (14.5) Amniotic Fluid Index) Tone (test code = Tone) 2 Breathing (test code = 2 Breathing) Movement (test code = 2 Movement) Non-Stress Test (test code = 2 Non-Stress Test) [facility] Biophysical profile panel [id number] 10:06:43 Test Item Value Reference Range Interpretation Comments Amniotic Fluid Index (test code = 2 (14.5) Amniotic Fluid Index) Tone (test code = Tone) 2 Breathing (test code = 2 Breathing) Movement (test code = 2 Movement) Non-Stress Test (test code = 2 Non-Stress Test) [facility] (dipstick) panel - [id number] 11:37:00 Test Item Value Reference Range Interpretation Comments Leukocytes (test code = Leukocytes) Large Nitrite (test code = Nitrite) negative Urobilinogen (test code = 1 Urobilinogen) Protein (test code = Protein) Trace pH (test code = pH) 8.5 Blood (test code = Blood) Negative Specific [place] (test code = 1.020 Specific [place]) Ketone (test code = Ketone) Negative Bilirubin (test code = Bilirubin) Negative Glucose (test code = Glucose) Negative Appearance (test code = Appearance) Clear Color (test code = Color) Yellow [facility] (dipstick) panel - [id number] 11:37:00 Test Item Value Reference Range Interpretation Comments Leukocytes (test code = Leukocytes) Large Nitrite (test code = Nitrite) negative Urobilinogen (test code = 1 Urobilinogen) Protein (test code = Protein) Trace pH (test code = pH) 8.5 Blood (test code = Blood) Negative Specific [place] (test code = 1.020 Specific [place]) Ketone (test code = Ketone) Negative Bilirubin (test code = Bilirubin) Negative Glucose (test code = Glucose) Negative Appearance (test code = Appearance) Clear Color (test code = Color) Yellow [facility] (dipstick) panel - [id number] 11:37:00 Test Item Value Reference Range Interpretation Comments Leukocytes (test code = Leukocytes) Large Nitrite (test code = Nitrite) negative Urobilinogen (test code = 1 Urobilinogen) Protein (test code = Protein) Trace pH (test code = pH) 8.5 Blood (test code = Blood) Negative Specific [place] (test code = 1.020 Specific [place]) Ketone (test code = Ketone) Negative Bilirubin (test code = Bilirubin) Negative Glucose (test code = Glucose) Negative Appearance (test code = Appearance) Clear Color (test code = Color) Yellow [facility] (dipstick) panel - [id number] 11:37:00 Test Item Value Reference Range Interpretation Comments Leukocytes (test code = Leukocytes) Large Nitrite (test code = Nitrite) negative Urobilinogen (test code = 1 Urobilinogen) Protein (test code = Protein) Trace pH (test code = pH) 8.5 Blood (test code = Blood) Negative Specific [place] (test code = 1.020 Specific [place]) Ketone (test code = Ketone) Negative Bilirubin (test code = Bilirubin) Negative Glucose (test code = Glucose) Negative Appearance (test code = Appearance) Clear Color (test code = Color) Yellow [facility] (dipstick) panel - [id number] 11:37:00 Test Item Value Reference Range Interpretation Comments Leukocytes (test code = Leukocytes) Large Nitrite (test code = Nitrite) negative Urobilinogen (test code = 1 Urobilinogen) Protein (test code = Protein) Trace pH (test code = pH) 8.5 Blood (test code = Blood) Negative Specific [place] (test code = 1.020 Specific [place]) Ketone (test code = Ketone) Negative Bilirubin (test code = Bilirubin) Negative Glucose (test code = Glucose) Negative Appearance (test code = Appearance) Clear Color (test code = Color) Yellow [facility] panel [id number] 11:06:57 Test Item Value Reference Range Interpretation Comments Amniotic Fluid Index (test code = 2 (14.6) Amniotic Fluid Index) Tone (test code = Tone) 2 Breathing (test code = 2 Breathing) Movement (test code = 2 Movement) Non-Stress Test (test code = 2 Non-Stress Test) [facility] Biophysical profile panel [id number] 11:06:57 Test Item Value Reference Range Interpretation Comments Amniotic Fluid Index (test code = 2 (14.6) Amniotic Fluid Index) Tone (test code = Tone) 2 Breathing (test code = 2 Breathing) Movement (test code = 2 Movement) Non-Stress Test (test code = 2 Non-Stress Test) [facility] Biophysical profile panel [id number] 11:06:57 Test Item Value Reference Range Interpretation Comments Amniotic Fluid Index (test code = 2 (14.6) Amniotic Fluid Index) Tone (test code = Tone) 2 Breathing (test code = 2 Breathing) Movement (test code = 2 Movement) Non-Stress Test (test code = 2 Non-Stress Test) [facility] Biophysical profile panel [id number] 11:06:57 Test Item Value Reference Range Interpretation Comments Amniotic Fluid Index (test code = 2 (14.6) Amniotic Fluid Index) Tone (test code = Tone) 2 Breathing (test code = 2 Breathing) Movement (test code = 2 Movement) Non-Stress Test (test code = 2 Non-Stress Test) [facility] Biophysical profile panel [id number] 11:06:57 Test Item Value Reference Range Interpretation Comments Amniotic Fluid Index (test code = 2 (14.6) Amniotic Fluid Index) Tone (test code = Tone) 2 Breathing (test code = 2 Breathing) Movement (test code = 2 Movement) Non-Stress Test (test code = 2 Non-Stress Test) [facility] panel - [id number] 15:44:30 Test Item Value Reference Range Interpretation Comments Leukocytes (test code = Small Leukocytes) Nitrite (test code = Nitrite) negative Urobilinogen (test code = 2 Urobilinogen) Protein (test code = Protein) 30 pH (test code = pH) 8.0 Blood (test code = Blood) Negative Specific [place] (test code = 1.020 Specific [place]) Ketone (test code = Ketone) Negative Bilirubin (test code = Bilirubin) Small Glucose (test code = Glucose) Negative Appearance (test code = Clear Appearance) Color (test code = Color) Dark Yellow [facility] (dipstick) panel - [id number] 15:44:30 Test Item Value Reference Range Interpretation Comments Leukocytes (test code = Small Leukocytes) Nitrite (test code = Nitrite) negative Urobilinogen (test code = 2 Urobilinogen) Protein (test code = Protein) 30 pH (test code = pH) 8.0 Blood (test code = Blood) Negative Specific [place] (test code = 1.020 Specific [place]) Ketone (test code = Ketone) Negative Bilirubin (test code = Bilirubin) Small Glucose (test code = Glucose) Negative Appearance (test code = Clear Appearance) Color (test code = Color) Dark Yellow [facility] (dipstick) panel - [id number] 15:44:30 Test Item Value Reference Range Interpretation Comments Leukocytes (test code = Small Leukocytes) Nitrite (test code = Nitrite) negative Urobilinogen (test code = 2 Urobilinogen) Protein (test code = Protein) 30 pH (test code = pH) 8.0 Blood (test code = Blood) Negative Specific [place] (test code = 1.020 Specific [place]) Ketone (test code = Ketone) Negative Bilirubin (test code = Bilirubin) Small Glucose (test code = Glucose) Negative Appearance (test code = Clear Appearance) Color (test code = Color) Dark Yellow [facility] (dipstick) panel - [id number] 15:44:30 Test Item Value Reference Range Interpretation Comments Leukocytes (test code = Small Leukocytes) Nitrite (test code = Nitrite) negative Urobilinogen (test code = 2 Urobilinogen) Protein (test code = Protein) 30 pH (test code = pH) 8.0 Blood (test code = Blood) Negative Specific [place] (test code = 1.020 Specific [place]) Ketone (test code = Ketone) Negative Bilirubin (test code = Bilirubin) Small Glucose (test code = Glucose) Negative Appearance (test code = Clear Appearance) Color (test code = Color) Dark Yellow [facility] (dipstick) panel - [id number] 15:44:30 Test Item Value Reference Range Interpretation Comments Leukocytes (test code = Small Leukocytes) Nitrite (test code = Nitrite) negative Urobilinogen (test code = 2 Urobilinogen) Protein (test code = Protein) 30 pH (test code = pH) 8.0 Blood (test code = Blood) Negative Specific [place] (test code = 1.020 Specific [place]) Ketone (test code = Ketone) Negative Bilirubin (test code = Bilirubin) Small Glucose (test code = Glucose) Negative Appearance (test code = Clear Appearance) Color (test code = Color) Dark Yellow [facility] (dipstick) panel - [id number] 15:44:30 Test Item Value Reference Range Interpretation Comments Leukocytes (test code = Small Leukocytes) Nitrite (test code = Nitrite) negative Urobilinogen (test code = 2 Urobilinogen) Protein (test code = Protein) 30 pH (test code = pH) 8.0 Blood (test code = Blood) Negative Specific [place] (test code = 1.020 Specific [place]) Ketone (test code = Ketone) Negative Bilirubin (test code = Bilirubin) Small Glucose (test code = Glucose) Negative Appearance (test code = Clear Appearance) Color (test code = Color) Dark Yellow [facility] Biophysical profile panel [id number] 15:38:02 Test Item Value Reference Range Interpretation Comments Amniotic Fluid Index (test code = 2 (15.5) Amniotic Fluid Index) Tone (test code = Tone) 2 Breathing (test code = 2 Breathing) Movement (test code = 2 Movement) Non-Stress Test (test code = 2 Non-Stress Test) [facility] Biophysical profile panel [id number] 15:38:02 Test Item Value Reference Range Interpretation Comments Amniotic Fluid Index (test code = 2 (15.5) Amniotic Fluid Index) Tone (test code = Tone) 2 Breathing (test code = 2 Breathing) Movement (test code = 2 Movement) Non-Stress Test (test code = 2 Non-Stress Test) [facility] Biophysical profile panel [id number] 15:38:02 Test Item Value Reference Range Interpretation Comments Amniotic Fluid Index (test code = 2 (15.5) Amniotic Fluid Index) Tone (test code = Tone) 2 Breathing (test code = 2 Breathing) Movement (test code = 2 Movement) Non-Stress Test (test code = 2 Non-Stress Test) [facility] Biophysical profile panel [id number] 15:38:02 Test Item Value Reference Range Interpretation Comments Amniotic Fluid Index (test code = 2 (15.5) Amniotic Fluid Index) Tone (test code = Tone) 2 Breathing (test code = 2 Breathing) Movement (test code = 2 Movement) Non-Stress Test (test code = 2 Non-Stress Test) [facility] Biophysical profile panel [id number] 15:38:02 Test Item Value Reference Range Interpretation Comments Amniotic Fluid Index (test code = 2 (15.5) Amniotic Fluid Index) Tone (test code = Tone) 2 Breathing (test code = 2 Breathing) Movement (test code = 2 Movement) Non-Stress Test (test code = 2 Non-Stress Test) [facility] Biophysical profile panel [id number] 15:38:02 Test Item Value Reference Range Interpretation Comments Amniotic Fluid Index (test code = 2 (15.5) Amniotic Fluid Index) Tone (test code = Tone) 2 Breathing (test code = 2 Breathing) Movement (test code = 2 Movement) Non-Stress Test (test code = 2 Non-Stress Test) [facility] Biophysical profile panel [id number] 09:23:00 Test Item Value Reference Range Interpretation Comments Amniotic Fluid Index (test code = 2 (15.4) Amniotic Fluid Index) Tone (test code = Tone) 2 Breathing (test code = 2 Breathing) Movement (test code = 2 Movement) [facility] Biophysical profile panel [id number] 09:23:00 Test Item Value Reference Range Interpretation Comments Amniotic Fluid Index (test code = 2 (15.4) Amniotic Fluid Index) Tone (test code = Tone) 2 Breathing (test code = 2 Breathing) Movement (test code = 2 Movement) [facility] Biophysical profile panel [id number] 09:23:00 Test Item Value Reference Range Interpretation Comments Amniotic Fluid Index (test code = 2 (15.4) Amniotic Fluid Index) Tone (test code = Tone) 2 Breathing (test code = 2 Breathing) Movement (test code = 2 Movement) [facility] Biophysical profile panel [id number] 09:23:00 Test Item Value Reference Range Interpretation Comments Amniotic Fluid Index (test code = 2 (15.4) Amniotic Fluid Index) Tone (test code = Tone) 2 Breathing (test code = 2 Breathing) Movement (test code = 2 Movement) [facility] Biophysical profile panel [id number] 11:41:00 Test Item Value Reference Range Interpretation Comments Amniotic Fluid Index (test code = 2 (13.3) Amniotic Fluid Index) Tone (test code = Tone) 2 Breathing (test code = 2 Breathing) Movement (test code = 2 Movement) [facility] Biophysical profile panel [id number] 11:41:00 Test Item Value Reference Range Interpretation Comments Amniotic Fluid Index (test code = 2 (13.3) Amniotic Fluid Index) Tone (test code = Tone) 2 Breathing (test code = 2 Breathing) Movement (test code = 2 Movement) [facility] Biophysical profile panel [id number] 11:41:00 Test Item Value Reference Range Interpretation Comments Amniotic Fluid Index (test code = 2 (13.3) Amniotic Fluid Index) Tone (test code = Tone) 2 Breathing (test code = 2 Breathing) Movement (test code = 2 Movement) [facility] Biophysical profile panel [id number] 11:41:00 Test Item Value Reference Range Interpretation Comments Amniotic Fluid Index (test code = 2 (13.3) Amniotic Fluid Index) Tone (test code = Tone) 2 Breathing (test code = 2 Breathing) Movement (test code = 2 Movement) [facility] Biophysical profile panel [id number] 11:59:00 Test Item Value Reference Range Interpretation Comments Amniotic Fluid Index (test code = 2 (12.2) Amniotic Fluid Index) Tone (test code = Tone) 2 Breathing (test code = 2 Breathing) Movement (test code = 2 Movement) [facility] Biophysical profile panel [id number] 11:59:00 Test Item Value Reference Range Interpretation Comments Amniotic Fluid Index (test code = 2 (12.2) Amniotic Fluid Index) Tone (test code = Tone) 2 Breathing (test code = 2 Breathing) Movement (test code = 2 Movement) [facility] Biophysical profile panel [id number] 11:59:00 Test Item Value Reference Range Interpretation Comments Amniotic Fluid Index (test code = 2 (12.2) Amniotic Fluid Index) Tone (test code = Tone) 2 Breathing (test code = 2 Breathing) Movement (test code = 2 Movement) [facility] Biophysical profile panel [id number] 11:59:00 Test Item Value Reference Range Interpretation Comments Amniotic Fluid Index (test code = 2 (12.2) Amniotic Fluid Index) Tone (test code = Tone) 2 Breathing (test code = 2 Breathing) Movement (test code = 2 Movement) [facility] Biophysical profile panel [id number] 11:59:00 Test Item Value Reference Range Interpretation Comments Amniotic Fluid Index (test code = 2 (12.2) Amniotic Fluid Index) Tone (test code = Tone) 2 Breathing (test code = 2 Breathing) Movement (test code = 2 Movement) [facility] identified in Urine by [id number] 10:18:00 Test Item Value Reference Range Interpretation Comments Bacteria identified in no growth after 2 Urine by Culture (test days code = 630-4) [facility] GroupBacteria identified in Urine by [id number] 10:18:00 Test Item Value Reference Range Interpretation Comments Bacteria identified in no growth after 2 Urine by Culture (test days code = 630-4) [facility] GroupBacteria identified in Urine by [id number] 10:18:00 Test Item Value Reference Range Interpretation Comments Bacteria identified in no growth after 2 Urine by Culture (test days code = 630-4) [facility] GroupBacteria identified in Urine by [id number] 10:18:00 Test Item Value Reference Range Interpretation Comments Bacteria identified in no growth after 2 Urine by Culture (test days code = 630-4) [facility] GroupGlucose [Mass/volume] in Serum or Plasma --1 hour post dose [id number] 12:27:00 Test Item Value Reference Range Interpretation Comments Results (test code = Results) 152-Fail [facility] GroupGlucose [Mass/volume] in Serum or Plasma --1 hour post dose [id number] 12:27:00 Test Item Value Reference Range Interpretation Comments Results (test code = Results) 152-Fail [facility] GroupGlucose [Mass/volume] in Serum or Plasma --1 hour post dose [id number] 12:27:00 Test Item Value Reference Range Interpretation Comments Results (test code = Results) 152-Fail [facility] GroupGlucose [Mass/volume] in Serum or Plasma --1 hour post dose [id number] 12:27:00 Test Item Value Reference Range Interpretation Comments Results (test code = Results) 152-Fail [facility] GroupGlucose [Mass/volume] in Serum or Plasma --1 hour post dose [id number] 12:27:00 Test Item Value Reference Range Interpretation Comments Results (test code = Results) 152-Fail [facility] GroupCBC W Auto Differential panel - [id number] 11:08:00 Test Item Value Reference Range Interpretation Comments white blood count (test code = 14.1 K/uL 4.0-11.5 H white blood count) red blood count (test code = red 4.04 M/uL 3.80-5.20 blood count) hemoglobin (test code = 11.1 g/dL 10.5-15.7 hemoglobin) hematocrit (test code = 35.1 % 34.0-50.0 hematocrit) Erythrocyte mean corpuscular 86.9 fL 86-100 volume [Entitic volume] (test code = 71790-0) mean corpuscular hemoglobin (test 27.5 pg 26.2-33.4 [...] H leukocytes in Blood (test code = 69823-6) Granulocytes Immature [#/volume] 0.1 K/uL 0.0-0.03 H in Blood (test code = 87391-7) lymphocyte% (test code = 10.7 % 10.0-50.0 lymphocyte%) mono % (test code = mono %) 4.0 % 3.6-12.0 eos % (test code = eos %) 0.1 % 0.0-5.4 Basophils/100 leukocytes in 0.1 % 0.1-1.2 Unspecified specimen (test code = 27725-1) Neutrophils.band form [#/volume] 11.91 K/uL 1.56-6.13 H in Blood (test code = 05690-0) Lymphocytes [#/volume] in 1.5 K/uL 1.18-3.74 Unspecified specimen by Automated count (test code = 04767-8) mono # (test code = mono #) 0.56 K/uL 0.24-0.86 eos # (test code = eos #) 0.01 K/uL 0.04-0.36 L basophil # (test code = basophil 0.02 K/uL 0.01-0.08 #) NRBC% (test code = NRBC%) 0 /100 WBC 0-0.2 NRBC# (test code = NRBC#) 0 K/uL [facility]different[facility] panel, [id number] 11:08:00 NeutrophilsBandLymphocyteMonocytePlatelet EstimateMatagoSimpson General HospitalBlood group antibody screen [Presence] in Serum or [id number] 11:08:00 Test Item Value Reference Range Interpretation Comments Blood group antibody screen negative [Presence] in Serum or Plasma (test code = 890-4) [facility] CenterCB W Auto Differential panel - [id number] 11:08:00 Test Item Value Reference Range Interpretation Comments white blood count (test code = 14.1 K/uL 4.0-11.5 H white blood count) red blood count (test code = red 4.04 M/uL 3.80-5.20 blood count) hemoglobin (test code = 11.1 g/dL 10.5-15.7 hemoglobin) hematocrit (test code = 35.1 % 34.0-50.0 hematocrit) Erythrocyte mean corpuscular 86.9 fL 86-100 volume [Entitic volume] (test code = 17149-5) mean corpuscular hemoglobin (test 27.5 pg 26.2-33.4 [...] H leukocytes in Blood (test code = 63685-2) Granulocytes Immature [#/volume] 0.1 K/uL 0.0-0.03 H in Blood (test code = 83867-1) lymphocyte% (test code = 10.7 % 10.0-50.0 lymphocyte%) mono % (test code = mono %) 4.0 % 3.6-12.0 eos % (test code = eos %) 0.1 % 0.0-5.4 Basophils/100 leukocytes in 0.1 % 0.1-1.2 Unspecified specimen (test code = 26915-8) Neutrophils.band form [#/volume] 11.91 K/uL 1.56-6.13 H in Blood (test code = 21736-0) Lymphocytes [#/volume] in 1.5 K/uL 1.18-3.74 Unspecified specimen by Automated count (test code = 65743-4) mono # (test code = mono #) 0.56 K/uL 0.24-0.86 eos # (test code = eos #) 0.01 K/uL 0.04-0.36 L basophil # (test code = basophil 0.02 K/uL 0.01-0.08 #) NRBC% (test code = NRBC%) 0 /100 WBC 0-0.2 NRBC# (test code = NRBC#) 0 K/uL [facility]differential panel, [id number] 11:08:00 NeutrophilsBandLymphocyteMonocytePlatelet EstimateDiamond Grove CenterBlood group antibody screen [Presence] in Serum or [id number] 11:08:00 Test Item Value Reference Range Interpretation Comments Blood group antibody screen negative [Presence] in Serum or Plasma (test code = 890-4) [facility] CenterHIV 1+2 Ab [Presence] in [id number] 11:08:00HIV P24 AgHIV-1/2 AbDiamond Grove CenterReagin Ab [Presence] in Serum by RPR 2019-03-09 11:08:00 Test Item Value Reference Range Interpretation Comments Reagin Ab [Presence] in Serum by nonreactive nonreactive RPR (test code = 23367-5) [facility] CenterCB W Auto Differential panel - [id number] 11:08:00 Test Item Value Reference Range Interpretation Comments white blood count (test code = 14.1 K/uL 4.0-11.5 H white blood count) red blood count (test code = red 4.04 M/uL 3.80-5.20 blood count) hemoglobin (test code = 11.1 g/dL 10.5-15.7 hemoglobin) hematocrit (test code = 35.1 % 34.0-50.0 hematocrit) Erythrocyte mean corpuscular 86.9 fL 86-100 volume [Entitic volume] (test code = 15991-5) mean corpuscular hemoglobin (test 27.5 pg 26.2-33.4 [...] H leukocytes in Blood (test code = 95238-4) Granulocytes Immature [#/volume] 0.1 K/uL 0.0-0.03 H in Blood (test code = 42359-6) lymphocyte% (test code = 10.7 % 10.0-50.0 lymphocyte%) mono % (test code = mono %) 4.0 % 3.6-12.0 eos % (test code = eos %) 0.1 % 0.0-5.4 Basophils/100 leukocytes in 0.1 % 0.1-1.2 Unspecified specimen (test code = 11776-0) Neutrophils.band form [#/volume] 11.91 K/uL 1.56-6.13 H in Blood (test code = 66081-0) Lymphocytes [#/volume] in 1.5 K/uL 1.18-3.74 Unspecified specimen by Automated count (test code = 32912-6) mono # (test code = mono #) 0.56 K/uL 0.24-0.86 eos # (test code = eos #) 0.01 K/uL 0.04-0.36 L basophil # (test code = basophil 0.02 K/uL 0.01-0.08 #) NRBC% (test code = NRBC%) 0 /100 WBC 0-0.2 NRBC# (test code = NRBC#) 0 K/uL [facility]differential panel, [id number] 11:08:00 NeutrophilsBandLymphocyteMonocytePlatelet EstimateMaNorthwest Mississippi Medical CenterBlood group antibody screen [Presence] in Serum or [id number] 11:08:00 Test Item Value Reference Range Interpretation Comments Blood group antibody screen negative [Presence] in Serum or Plasma (test code = 890-4) [facility] GroupHIV 1+2 Ab [Presence] in [id number] 11:08:00HIV P24 AgHIV-1/2 AbMaNorthwest Mississippi Medical CenterReagin Ab [Presence] in Serum by RPR 2019-03-09 11:08:00 Test Item Value Reference Range Interpretation Comments Reagin Ab [Presence] in Serum by nonreactive nonreactive RPR (test code = 62257-2) [facility] W Auto Differential panel - [id number] 11:08:00 Test Item Value Reference Range Interpretation Comments white blood count (test code = 14.1 K/uL 4.0-11.5 H white blood count) red blood count (test code = red 4.04 M/uL 3.80-5.20 blood count) hemoglobin (test code = 11.1 g/dL 10.5-15.7 hemoglobin) hematocrit (test code = 35.1 % 34.0-50.0 hematocrit) Erythrocyte mean corpuscular 86.9 fL 86-100 volume [Entitic volume] (test code = 61943-4) mean corpuscular hemoglobin (test 27.5 pg 26.2-33.4 [...] H leukocytes in Blood (test code = 91735-2) Granulocytes Immature [#/volume] 0.1 K/uL 0.0-0.03 H in Blood (test code = 19972-8) lymphocyte% (test code = 10.7 % 10.0-50.0 lymphocyte%) mono % (test code = mono %) 4.0 % 3.6-12.0 eos % (test code = eos %) 0.1 % 0.0-5.4 Basophils/100 leukocytes in 0.1 % 0.1-1.2 Unspecified specimen (test code = 21150-3) Neutrophils.band form [#/volume] 11.91 K/uL 1.56-6.13 H in Blood (test code = 77864-1) Lymphocytes [#/volume] in 1.5 K/uL 1.18-3.74 Unspecified specimen by Automated count (test code = 75518-4) mono # (test code = mono #) 0.56 K/uL 0.24-0.86 eos # (test code = eos #) 0.01 K/uL 0.04-0.36 L basophil # (test code = basophil 0.02 K/uL 0.01-0.08 #) NRBC% (test code = NRBC%) 0 /100 WBC 0-0.2 NRBC# (test code = NRBC#) 0 K/uL [facility]differential panel, [id number] 11:08:00 NeutrophilsBandLymphocyteMonocytePlatelet EstimateDiamond [facility] CenterBlood group antibody screen [Presence] in Serum or [id number] 11:08:00 Test Item Value Reference Range Interpretation Comments Blood group antibody screen negative [Presence] in Serum or Plasma (test code = 890-4) [facility] CenterHIV 1+2 Ab [Presence] in [id number] 11:08:00HIV P24 AgHIV-1/2 AbDiamond Grove CenterReagin Ab [Presence] in Serum by RPR 2019-03-09 11:08:00 Test Item Value Reference Range Interpretation Comments Reagin Ab [Presence] in Serum by nonreactive nonreactive RPR (test code = 77804-6) [facility] CenterCB W Auto Differential panel - [id number] 11:08:00 Test Item Value Reference Range Interpretation Comments white blood count (test code = 14.1 K/uL 4.0-11.5 H white blood count) red blood count (test code = red 4.04 M/uL 3.80-5.20 blood count) hemoglobin (test code = 11.1 g/dL 10.5-15.7 hemoglobin) hematocrit (test code = 35.1 % 34.0-50.0 hematocrit) Erythrocyte mean corpuscular 86.9 fL 86-100 volume [Entitic volume] (test code = 09249-6) mean corpuscular hemoglobin (test 27.5 pg 26.2-33.4 [...] H leukocytes in Blood (test code = 52980-5) Granulocytes Immature [#/volume] 0.1 K/uL 0.0-0.03 H in Blood (test code = 16554-1) lymphocyte% (test code = 10.7 % 10.0-50.0 lymphocyte%) mono % (test code = mono %) 4.0 % 3.6-12.0 eos % (test code = eos %) 0.1 % 0.0-5.4 Basophils/100 leukocytes in 0.1 % 0.1-1.2 Unspecified specimen (test code = 02549-9) Neutrophils.band form [#/volume] 11.91 K/uL 1.56-6.13 H in Blood (test code = 10355-2) Lymphocytes [#/volume] in 1.5 K/uL 1.18-3.74 Unspecified specimen by Automated count (test code = 84374-9) mono # (test code = mono #) 0.56 K/uL 0.24-0.86 eos # (test code = eos #) 0.01 K/uL 0.04-0.36 L basophil # (test code = basophil 0.02 K/uL 0.01-0.08 #) NRBC% (test code = NRBC%) 0 /100 WBC 0-0.2 NRBC# (test code = NRBC#) 0 K/uL [facility] Groupdifferential panel, [id number] 11:08:00 NeutrophilsBandLymphocyteMonocytePlatelet EstimateMatagoa [facility] GroupBlood group antibody screen [Presence] in Serum or [id number] 11:08:00 Test Item Value Reference Range Interpretation Comments Blood group antibody screen negative [Presence] in Serum or Plasma (test code = 890-4) [facility] GroupHIV 1+2 Ab [Presence] in [id number] 11:08:00HIV P24 AgHIV-1/2 AbDiamond Grove CenterReagin Ab [Presence] in Serum by RPR 2019-03-09 11:08:00 Test Item Value Reference Range Interpretation Comments Reagin Ab [Presence] in Serum by nonreactive nonreactive RPR (test code = 61156-4) [facility] CenterChlamydia trachomatis+Neisseria gonorrhoeae DNA [Presence] in Cervix by Probe and target amplification [id number] 10:54:00 ResultsMaUpland Hills Health GroupMicroscopic observation [Identifier] in Cervix by Cyto stain.thin [id number] 10:54:00ResultsHeart Hospital Of [facility] GroupChlamydia trachomatis+Neisseria gonorrhoeae DNA [Presence] in Cervix by Probe and target amplification [id number] 10:54:00ResultsMaUpland Hills Health GroupMicroscopic observation [Identifier] in Cervix by Cyto stain.thin [id number] 10:54:00 ResultsMaNorthwest Mississippi Medical CenterChlamydia trachomatis+Neisseria gonorrhoeae DNA [Presence] in Cervix by Probe and target amplification [id number] 10:54:00 ResultsMatarockville general hospital Medical GroupMicroscopic observation [Identifier] in Cervix by Cyto stain.thin [id number] 10:54:00ResultsMaNorthwest Mississippi Medical CenterChlamydia trachomatis+Neisseria gonorrhoeae DNA [Presence] in Cervix by Probe and target amplification [id number] 10:54:00ResultsMaUpland Hills Health GroupMicroscopic observation [Identifier] in Cervix by Cyto stain.thin [id number] 10:54:00 ResultsDiamond Grove CenterUrinalysis macro (dipstick) panel - Urine 2019-03-04 15:32:00 Test Item Value Reference Range Interpretation Comments Leukocytes (test code = Moderate Leukocytes) Nitrite (test code = negative Nitrite) Urobilinogen (test code = .2 Urobilinogen) Protein (test code = Trace Protein) pH (test code = pH) 7.0 Blood (test code = Blood) Non-Hemolyzed: Trace Specific [place] (test 1.020 code = Specific [place]) Ketone (test code = Trace Ketone) Bilirubin (test code = Negative Bilirubin) Glucose (test code = Negative Glucose) Appearance (test code = Clear Appearance) Color (test code = Color) Yellow [facility] CenterUrinalysis macro (dipstick) panel - [id number] 15:32:00 Test Item Value Reference Range Interpretation Comments Leukocytes (test code = Moderate Leukocytes) Nitrite (test code = negative Nitrite) Urobilinogen (test code = .2 Urobilinogen) Protein (test code = Trace Protein) pH (test code = pH) 7.0 Blood (test code = Blood) Non-Hemolyzed: Trace Specific [place] (test 1.020 code = Specific [place]) Ketone (test code = Trace Ketone) Bilirubin (test code = Negative Bilirubin) Glucose (test code = Negative Glucose) Appearance (test code = Clear Appearance) Color (test code = Color) Yellow [facility] CenterUrinalysis macro (dipstick) panel - [id number] 15:32:00 Test Item Value Reference Range Interpretation Comments Leukocytes (test code = Moderate Leukocytes) Nitrite (test code = negative Nitrite) Urobilinogen (test code = .2 Urobilinogen) Protein (test code = Trace Protein) pH (test code = pH) 7.0 Blood (test code = Blood) Non-Hemolyzed: Trace Specific [place] (test 1.020 code = Specific [place]) Ketone (test code = Trace Ketone) Bilirubin (test code = Negative Bilirubin) Glucose (test code = Negative Glucose) Appearance (test code = Clear Appearance) Color (test code = Color) Yellow [facility] CenterUrinalysis macro (dipstick) panel - [id number] 15:32:00 Test Item Value Reference Range Interpretation Comments Leukocytes (test code = Moderate Leukocytes) Nitrite (test code = negative Nitrite) Urobilinogen (test code = .2 Urobilinogen) Protein (test code = Trace Protein) pH (test code = pH) 7.0 Blood (test code = Blood) Non-Hemolyzed: Trace Specific [place] (test 1.020 code = Specific [place]) Ketone (test code = Trace Ketone) Bilirubin (test code = Negative Bilirubin) Glucose (test code = Negative Glucose) Appearance (test code = Clear Appearance) Color (test code = Color) Yellow [facility] CenterUrinalysis macro (dipstick) panel - [id number] 15:32:00 Test Item Value Reference Range Interpretation Comments Leukocytes (test code = Moderate Leukocytes) Nitrite (test code = negative Nitrite) Urobilinogen (test code = .2 Urobilinogen) Protein (test code = Trace Protein) pH (test code = pH) 7.0 Blood (test code = Blood) Non-Hemolyzed: Trace Specific [place] (test 1.020 code = Specific [place]) Ketone (test code = Trace Ketone) Bilirubin (test code = Negative Bilirubin) Glucose (test code = Negative Glucose) Appearance (test code = Clear Appearance) Color (test code = Color) Yellow [facility] CenterUrinalysis macro (dipstick) panel - [id number] 15:32:00 Test Item Value Reference Range Interpretation Comments Leukocytes (test code = Moderate Leukocytes) Nitrite (test code = negative Nitrite) Urobilinogen (test code = .2 Urobilinogen) Protein (test code = Trace Protein) pH (test code = pH) 7.0 Blood (test code = Blood) Non-Hemolyzed: Trace Specific [place] (test 1.020 code = Specific [place]) Ketone (test code = Trace Ketone) Bilirubin (test code = Negative Bilirubin) Glucose (test code = Negative Glucose) Appearance (test code = Clear Appearance) Color (test code = Color) Yellow [facility] CenterCBC W Auto Differential panel - [id number] 12:35:00 Test Item Value Reference Range Interpretation Comments white blood count (test code = 12.4 K/uL 4.0-11.5 white blood count) red blood count (test code = red 3.63 M/uL 3.80-5.20 L blood count) hemoglobin (test code = 10.0 g/dL 10.5-15.7 L hemoglobin) hematocrit (test code = 31.4 % 34.0-50.0 hematocrit) Erythrocyte mean corpuscular 86.5 fL 86-100 volume [Entitic volume] (test code = 65411-4) mean corpuscular hemoglobin (test 27.5 pg 26.2-33.4 [...] 44.4-80.1 leukocytes in Blood (test code = 30974-2) Granulocytes Immature [#/volume] 0.1 K/uL 0.0-0.03 H in Blood (test code = 59863-2) lymphocyte% (test code = 15.7 % 10.0-50.0 lymphocyte%) mono % (test code = mono %) 5.7 % 3.6-12.0 eos % (test code = eos %) 0.3 % 0.0-5.4 Basophils/100 leukocytes in 0.2 % 0.1-1.2 Unspecified specimen (test code = 59423-0) Neutrophils.band form [#/volume] 9.61 K/uL 1.56-6.13 H in Blood (test code = 09558-5) Lymphocytes [#/volume] in 1.9 K/uL 1.18-3.74 Unspecified specimen by Automated count (test code = 85942-4) mono # (test code = mono #) 0.70 K/uL 0.24-0.86 eos # (test code = eos #) 0.04 K/uL 0.04-0.36 basophil # (test code = basophil 0.02 K/uL 0.01-0.08 #) NRBC% (test code = NRBC%) 0 /100 WBC 0-0.2 NRBC# (test code = NRBC#) 0 K/uL [facility] GroupHIV 1+2 Ab [Presence] in [id number] 12:35:00HIV P24 AgHIV-1/2 AbMatagorda Medical GroupABO & Rh group [Type] in [id number] 12:35:00 Test Item Value Reference Range Interpretation Comments Rh [Type] in Blood (test code = 3+ 30189-7) ABO and Rh group panel - Blood O positive (test code = 18772-9) [facility] GroupBlood group antibody screen [Presence] in Serum or Plasma 2019-03-04 12:35:00 Test Item Value Reference Range Interpretation Comments Blood group antibody screen negative [Presence] in Serum or Plasma (test code = 890-4) [facility] CenterBacteria identified in Urine by [id number] 12:35:00Bacteria Ur CultDiamond Grove CenterReagin Ab [Presence] in Serum by [id number] 12:35:00 Test Item Value Reference Range Interpretation Comments Reagin Ab [Presence] in Serum by nonreactive nonreactive RPR (test code = 21727-0) [facility] Centerantibiotic sensitivity testing, [id number] 12:35:00 Test Item Value Reference Range Interpretation [...] Minimum inhibitory concentration (GUSTAVO) (test code = 87620-1) Piperacillin+Tazobactam <16 [Susceptibility] by Minimum inhibitory concentration [...] <0.5 inhibitory concentration (GUSTAVO) (test code = 97728-9) Aztreonam [Susceptibility] by Minimum <4 inhibitory concentration (GUSTAVO) (test code = 44-8) Cefuroxime [Susceptibility] by Minimum <4 inhibitory concentration (GUSTAVO) (test code = 18293-2) [facility] W Auto Differential panel - [id number] 12:35:00 Test Item Value Reference Range Interpretation Comments white blood count (test code = 12.4 K/uL 4.0-11.5 white blood count) red blood count (test code = red 3.63 M/uL 3.80-5.20 L blood count) hemoglobin (test code = 10.0 g/dL 10.5-15.7 L hemoglobin) hematocrit (test code = 31.4 % 34.0-50.0 hematocrit) Erythrocyte mean corpuscular 86.5 fL 86-100 volume [Entitic volume] (test code = 66537-0) mean corpuscular hemoglobin (test 27.5 pg 26.2-33.4 [...] 44.4-80.1 leukocytes in Blood (test code = 34014-1) Granulocytes Immature [#/volume] 0.1 K/uL 0.0-0.03 H in Blood (test code = 60325-6) lymphocyte% (test code = 15.7 % 10.0-50.0 lymphocyte%) mono % (test code = mono %) 5.7 % 3.6-12.0 eos % (test code = eos %) 0.3 % 0.0-5.4 Basophils/100 leukocytes in 0.2 % 0.1-1.2 Unspecified specimen (test code = 56074-5) Neutrophils.band form [#/volume] 9.61 K/uL 1.56-6.13 H in Blood (test code = 76075-7) Lymphocytes [#/volume] in 1.9 K/uL 1.18-3.74 Unspecified specimen by Automated count (test code = 69826-1) mono # (test code = mono #) 0.70 K/uL 0.24-0.86 eos # (test code = eos #) 0.04 K/uL 0.04-0.36 basophil # (test code = basophil 0.02 K/uL 0.01-0.08 #) NRBC% (test code = NRBC%) 0 /100 WBC 0-0.2 NRBC# (test code = NRBC#) 0 K/uL [facility] GroupHIV 1+2 Ab [Presence] in [id number] 12:35:00HIV P24 AgHIV-1/2 AbMatagorda Medical GroupABO & Rh group [Type] in [id number] 12:35:00 Test Item Value Reference Range Interpretation Comments Rh [Type] in Blood (test code = 3+ 46025-0) ABO and Rh group panel - Blood O positive (test code = 37036-8) [facility] GroupBlood group antibody screen [Presence] in Serum or Plasma 2019-03-04 12:35:00 Test Item Value Reference Range Interpretation Comments Blood group antibody screen negative [Presence] in Serum or Plasma (test code = 890-4) [facility] GroupBacteria identified in Urine by [id number] 12:35:00Bacteria Ur CultMatagorda Medical GroupReagin Ab [Presence] in Serum by [id number] 12:35:00 Test Item Value Reference Range Interpretation Comments Reagin Ab [Presence] in Serum by nonreactive nonreactive RPR (test code = 40773-9) [facility] Groupantibiotic sensitivity testing, [id number] 12:35:00 Test Item Value Reference Range Interpretation [...] Minimum inhibitory concentration (GUSTAVO) (test code = 23321-0) Piperacillin+Tazobactam <16 [Susceptibility] by Minimum inhibitory concentration [...] <0.5 inhibitory concentration (GUSTAVO) (test code = 29397-8) Aztreonam [Susceptibility] by Minimum <4 inhibitory concentration (GUSTAVO) (test code = 44-8) Cefuroxime [Susceptibility] by Minimum <4 inhibitory concentration (GUSTAVO) (test code = 69547-6) [facility] W Auto Differential panel - [id number] 12:35:00 Test Item Value Reference Range Interpretation Comments white blood count (test code = 12.4 K/uL 4.0-11.5 white blood count) red blood count (test code = red 3.63 M/uL 3.80-5.20 L blood count) hemoglobin (test code = 10.0 g/dL 10.5-15.7 L hemoglobin) hematocrit (test code = 31.4 % 34.0-50.0 hematocrit) Erythrocyte mean corpuscular 86.5 fL 86-100 volume [Entitic volume] (test code = 17368-2) mean corpuscular hemoglobin (test 27.5 pg 26.2-33.4 [...] 44.4-80.1 leukocytes in Blood (test code = 18487-3) Granulocytes Immature [#/volume] 0.1 K/uL 0.0-0.03 H in Blood (test code = 66184-6) lymphocyte% (test code = 15.7 % 10.0-50.0 lymphocyte%) mono % (test code = mono %) 5.7 % 3.6-12.0 eos % (test code = eos %) 0.3 % 0.0-5.4 Basophils/100 leukocytes in 0.2 % 0.1-1.2 Unspecified specimen (test code = 63285-8) Neutrophils.band form [#/volume] 9.61 K/uL 1.56-6.13 H in Blood (test code = 81453-3) Lymphocytes [#/volume] in 1.9 K/uL 1.18-3.74 Unspecified specimen by Automated count (test code = 41352-6) mono # (test code = mono #) 0.70 K/uL 0.24-0.86 eos # (test code = eos #) 0.04 K/uL 0.04-0.36 basophil # (test code = basophil 0.02 K/uL 0.01-0.08 #) NRBC% (test code = NRBC%) 0 /100 WBC 0-0.2 NRBC# (test code = NRBC#) 0 K/uL [facility] GroupHIV 1+2 Ab [Presence] in [id number] 12:35:00HIV P24 AgHIV-1/2 AbMataPorter Medical Center GroupABO & Rh group [Type] in [id number] 12:35:00 Test Item Value Reference Range Interpretation Comments Rh [Type] in Blood (test code = 3+ 52654-9) ABO and Rh group panel - Blood O positive (test code = 32396-1) [facility] GroupBlood group antibody screen [Presence] in Serum or Plasma 2019-03-04 12:35:00 Test Item Value Reference Range Interpretation Comments Blood group antibody screen negative [Presence] in Serum or Plasma (test code = 890-4) [facility] GroupBacteria identified in Urine by [id number] 12:35:00Bacteria Ur CultHeart [facility] Of [facility] GroupReagin Ab [Presence] in Serum by [id number] 12:35:00 Test Item Value Reference Range Interpretation Comments Reagin Ab [Presence] in Serum by nonreactive nonreactive RPR (test code = 83298-1) [facility] Centerantibiotic sensitivity testing, [id number] 12:35:00 Test Item Value Reference Range Interpretation [...] Cefotaxime [Susceptibility] by Minimum <2 inhibitory concentration (GUSTVAO) (test code = 108-1) Cefepime [Susceptibility] by Minimum <8 inhibitory concentration (GUSTAVO) (test code = 6644-9) Levofloxacin [Susceptibility] by <2 Minimum inhibitory concentration (GUSTAVO) (test code = 80909-0) Piperacillin+Tazobactam <16 [Susceptibility] by Minimum inhibitory concentration [...] <0.5 inhibitory concentration (GUSTAVO) (test code = 82714-0) Aztreonam [Susceptibility] by Minimum <4 inhibitory concentration (GUSTAVO) (test code = 44-8) Cefuroxime [Susceptibility] by Minimum <4 inhibitory concentration (GUSTAVO) (test code = 24068-5) [facility] W Auto Differential panel - [id number] 12:35:00 Test Item Value Reference Range Interpretation Comments white blood count (test code = 12.4 K/uL 4.0-11.5 white blood count) red blood count (test code = red 3.63 M/uL 3.80-5.20 L blood count) hemoglobin (test code = 10.0 g/dL 10.5-15.7 L hemoglobin) hematocrit (test code = 31.4 % 34.0-50.0 hematocrit) Erythrocyte mean corpuscular 86.5 fL 86-100 volume [Entitic volume] (test code = 01725-7) mean corpuscular hemoglobin (test 27.5 pg 26.2-33.4 [...] 44.4-80.1 leukocytes in Blood (test code = 03250-2) Granulocytes Immature [#/volume] 0.1 K/uL 0.0-0.03 H in Blood (test code = 97956-9) lymphocyte% (test code = 15.7 % 10.0-50.0 lymphocyte%) mono % (test code = mono %) 5.7 % 3.6-12.0 eos % (test code = eos %) 0.3 % 0.0-5.4 Basophils/100 leukocytes in 0.2 % 0.1-1.2 Unspecified specimen (test code = 30290-8) Neutrophils.band form [#/volume] 9.61 K/uL 1.56-6.13 H in Blood (test code = 70205-0) Lymphocytes [#/volume] in 1.9 K/uL 1.18-3.74 Unspecified specimen by Automated count (test code = 49429-3) mono # (test code = mono #) 0.70 K/uL 0.24-0.86 eos # (test code = eos #) 0.04 K/uL 0.04-0.36 basophil # (test code = basophil 0.02 K/uL 0.01-0.08 #) NRBC% (test code = NRBC%) 0 /100 WBC 0-0.2 NRBC# (test code = NRBC#) 0 K/uL [facility] Ab [Presence] in [id number] 12:35:00HIV P24 AgHIV-1/2 AbMatagorda Medical GroupABO & Rh group [Type] in [id number] 12:35:00 Test Item Value Reference Range Interpretation Comments Rh [Type] in Blood (test code = 3+ 15287-2) ABO and Rh group panel - Blood O positive (test code = 53215-7) [facility] antibody screen [Presence] in Serum or Plasma 2019-03-04 12:35:00 Test Item Value Reference Range Interpretation Comments Blood group antibody screen negative [Presence] in Serum or Plasma (test code = 890-4) [facility] GroupBacteria identified in Urine by [id number] 12:35:00Bacteria Ur CultM[facility] GroupReagin Ab [Presence] in Serum by [id number] 12:35:00 Test Item Value Reference Range Interpretation Comments Reagin Ab [Presence] in Serum by nonreactive nonreactive RPR (test code = 22909-7) [facility] Groupantibiotic sensitivity testing, [id number] 12:35:00 Test Item Value Reference Range Interpretation [...] Minimum inhibitory concentration (GUSTAVO) (test code = 60078-2) Piperacillin+Tazobactam <16 [Susceptibility] by Minimum inhibitory concentration [...] <0.5 inhibitory concentration (GUSTAVO) (test code = 06485-3) Aztreonam [Susceptibility] by Minimum <4 inhibitory concentration (GUSTAVO) (test code = 44-8) Cefuroxime [Susceptibility] by Minimum <4 inhibitory concentration (GUSTAVO) (test code = 05673-0) [facility] W Auto Differential panel - [id number] 12:35:00 Test Item Value Reference Range Interpretation Comments white blood count (test code = 12.4 K/uL 4.0-11.5 white blood count) red blood count (test code = red 3.63 M/uL 3.80-5.20 L blood count) hemoglobin (test code = 10.0 g/dL 10.5-15.7 L hemoglobin) hematocrit (test code = 31.4 % 34.0-50.0 hematocrit) Erythrocyte mean corpuscular 86.5 fL 86-100 volume [Entitic volume] (test code = 97671-4) mean corpuscular hemoglobin (test 27.5 pg 26.2-33.4 [...] 44.4-80.1 leukocytes in Blood (test code = 45869-6) Granulocytes Immature [#/volume] 0.1 K/uL 0.0-0.03 H in Blood (test code = 57975-8) lymphocyte% (test code = 15.7 % 10.0-50.0 lymphocyte%) mono % (test code = mono %) 5.7 % 3.6-12.0 eos % (test code = eos %) 0.3 % 0.0-5.4 Basophils/100 leukocytes in 0.2 % 0.1-1.2 Unspecified specimen (test code = 25909-8) Neutrophils.band form [#/volume] 9.61 K/uL 1.56-6.13 H in Blood (test code = 00476-6) Lymphocytes [#/volume] in 1.9 K/uL 1.18-3.74 Unspecified specimen by Automated count (test code = 85080-5) mono # (test code = mono #) 0.70 K/uL 0.24-0.86 eos # (test code = eos #) 0.04 K/uL 0.04-0.36 basophil # (test code = basophil 0.02 K/uL 0.01-0.08 #) NRBC% (test code = NRBC%) 0 /100 WBC 0-0.2 NRBC# (test code = NRBC#) 0 K/uL [facility]HIV 1+2 Ab [Presence] in [id number] 12:35:00HIV P24 AgHIV-1/2 AbMatagorda Medical GroupABO & Rh group [Type] in [id number] 12:35:00 Test Item Value Reference Range Interpretation Comments Rh [Type] in Blood (test code = 3+ 09623-2) ABO and Rh group panel - Blood O positive (test code = 33014-6) [facility] antibody screen [Presence] in Serum or Plasma 2019-03-04 12:35:00 Test Item Value Reference Range Interpretation Comments Blood group antibody screen negative [Presence] in Serum or Plasma (test code = 890-4) [facility] GroupBacteria identified in Urine by [id number] 12:35:00Bacteria Ur CultMatagorda Medical GroupReagin Ab [Presence] in Serum by [id number] 12:35:00 Test Item Value Reference Range Interpretation Comments Reagin Ab [Presence] in Serum by nonreactive nonreactive RPR (test code = 01653-2) [facility], [id number] 12:35:00 Test Item Value Reference Range Interpretation [...] Minimum inhibitory concentration (GUSTAVO) (test code = 77284-5) Piperacillin+Tazobactam <16 [Susceptibility] by Minimum inhibitory concentration [...] <0.5 inhibitory concentration (GUSTAVO) (test code = 53026-0) Aztreonam [Susceptibility] by Minimum <4 inhibitory concentration (GUSTAVO) (test code = 44-8) Cefuroxime [Susceptibility] by Minimum <4 inhibitory concentration (GUSTAVO) (test code = 74185-2) [facility] virus surface Ag [Presence] in Serum 2019-03-04 02:36:00 Test Item Value Reference Range Interpretation Comments .hepatitis B surface antigen (test negative negative code = .hepatitis B surface antigen) [facility] B virus surface Ag [Presence] in Serum 2019-03-04 02:36:00 Test Item Value Reference Range Interpretation Comments .hepatitis B surface antigen (test negative negative code = .hepatitis B surface antigen) [facility] B virus surface Ag [Presence] in Serum 2019-03-04 02:36:00 Test Item Value Reference Range Interpretation Comments .hepatitis B surface antigen (test negative negative code = .hepatitis B surface antigen) [facility] B virus surface Ag [Presence] in Serum 2019-03-04 02:36:00 Test Item Value Reference Range Interpretation Comments .hepatitis B surface antigen (test negative negative code = .hepatitis B surface antigen) [facility] B virus surface Ag [Presence] in Serum 2019-03-04 02:36:00 Test Item Value Reference Range Interpretation Comments .hepatitis B surface antigen (test negative negative code = .hepatitis B surface antigen) [facility]"
[2022-11-29] MEDS ORDERED: NA CHLORIDE 0.9% 1,000 ML ONE (11:24)
--- NOTE | 2022-11-29 12:19 | RAD REPORT ---
EXAM DESCRIPTION: US - Transvaginal Study Probe - 11/29/2022 11:28 am CLINICAL HISTORY: PAIN COMPARISON: No comparisons TECHNIQUE: Sonographic grayscale and color flow images of the pelvis were obtained. FINDINGS: The uterus is normal in size, and retroverted. The uterus measures 6.7 cm in length. The endometrial stripe measures 7 mm, normal for premenopausal age. Both ovaries are normal in size, shape and echotexture, containing normal-appearing follicles. The r ight ovary measures 3.1 x 1.4 x 1.4 cm. The left ovary measures 2.2 x 1.3 x 1.3 cm. Right ovarian ho mogeneous isodense or thick-walled 1.4 x 1.3 x 1.0 cm cyst with peripheral vascularity, could relate to a ruptured follicle, or corpus luteum. No other suspicious adnexal masses. Normal Doppler blood flow was demonstrated to both ovaries. Trace free fluid in the cul-de-sac. . IMPRESSION: No evidence of intrauterine . No findings to suggest an ectopic gestational sac . Correlation with serial beta HCG levels recommended. Retroverted uterus. Trace fluid in the cul-de-sac. Small right ovarian isodense 1.4 cm lesion, may represent a ruptured follicle or early corpus luteum.
[2022-11-29 12:32] LABS: Absolute Lymphocytes (CBC) 1.5 K/uL (0.7-4.9); Hematocrit 40.3 % (36.0-45.0); Lymphocytes % 17.3 % (15.3-44.8); MCV 80.6 fL (80-100); MPV 9.7 fL (7.6-11.3); Platelets 163 thou/uL (152-406)
[2022-11-29 12:47] LABS: Albumin 4.4 g/dL (3.4-5.0); Bilirubin Total 0.4 mg/dL (0.2-1.0); Protein, Total 7.6 g/dL (6.4-8.2)
--- NOTE | 2022-11-29 13:19 | ER ---
Nurse's Notes [facility] Name: Gloria Modi Age: 27 yrs Sex: Female : 1995 Arrival Date: 11/29/2022 Time: 10:56 Bed 14 Private MD: Diagnosis: Dysmenorrhea, unspecified;Nausea with vomiting, unspecified;Other ovarian cysts Presentation: 11/29 11:08 Chief complaint: Patient states: she had a avery 4mo ago and has been having worsening kc6 pain ever since. stated she has her tubes tied but had a positive UPT 2 days ago and began with vaginal bleeding today. reports nausea and generalized weakness. Coronavirus screen: At this time, the client does not indicate any symptoms associated with coronavirus-19. Ebola Screen: No symptoms or risks identified at this time. Initial Sepsis Screen: Does the patient meet any 2 criteria? No. Patient's initial sepsis screen is negative. Does the patient have a suspected source of infection? No. Patient's initial sepsis screen is negative. Risk Assessment: Do you want to hurt yourself or someone else? Patient reports no desire to harm self or others. Onset of symptoms was November 29, 2022. 11:08 Method Of Arrival: Ambulatory kc6 11:08 Acuity: NICO 3 kc6 Triage Assessment: 11:10 General: Appears in no apparent distress. uncomfortable, Behavior is calm, cooperative, kc6 appropriate for age. Pain: Complains of pain in suprapubic area and right upper quadrant Pain does not radiate. Pain currently is 10 out of 10 on a pain scale. Quality of pain is described as crampy, sharp. EENT: No signs and/or symptoms were reported regarding the EENT system. Neuro: Level of Consciousness is awake, alert, obeys commands, Oriented to person, place, time, situation, Appropriate for age Reports weakness. Cardiovascular: Capillary refill < 3 seconds. Respiratory: Airway is patent Trachea midline Respiratory effort is even, unlabored, Respiratory pattern is regular, symmetrical. GI: Reports cramping, nausea, Patient currently denies diarrhea, vomiting. : Reports vaginal bleeding that is. Derm: No signs and/or symptoms reported regarding the dermatologic system. Skin is intact, is healthy with good turgor, Skin is pink, warm \T\ dry. Musculoskeletal: No signs and/or symptoms reported regarding the musculoskeletal system. Circulation, motion, and sensation intact. Capillary refill < 3 seconds, Range of motion: intact in all extremities. [employer]: 11:11 LMP 11/29/2022 kc6 11:50 1, Full Term 1, Premature 0, 0, Living 1 oren Historical: - Allergies: 11:10 Latex, Natural Rubber; kc6 11:10 Tylenol # 3; kc6 - PMHx: 11:10 Bipolar disorder; chronic back pain; Guillan [place]; PTSD; kc6 - PSHx: 11:10 Cholecystectomy; tubal; kc6 - Immunization history:: Client reports receiving the 1st dose of the Covid vaccine, Flu vaccine is not up to date. - Social history:: Smoking status: Reported history of juuling and/or vaping. - Family history:: not pertinent. Screenin:11 [facility] ED Fall Risk Assessment (Adult) History of falling in the last 3 months, kc6 including since admission No falls in past 3 months (0 pts) Confusion or Disorientation No (0 pts) Intoxicated or Sedated No (0 pts) Impaired Gait No (0 pts) Mobility Assist Device Used No (0 pt) Altered Elimination No (0 pt) Score/Fall Risk Level 0 - 2 = Low Risk. Abuse screen: Denies threats or abuse. Denies injuries from another. Nutritional screening: No deficits noted. Tuberculosis screening: No symptoms or risk factors identified. Assessment: 11:12 Reassessment: please see triage assessment. kc6 12:01 Reassessment: Patient appears in no apparent distress at this time. No changes from [facility] previously documented assessment. Patient and/or family updated on plan of care and expected duration. Pain level reassessed. Patient is alert, oriented x 3, equal unlabored respirations, skin warm/dry/pink. 12:55 Reassessment: Patient appears in no apparent distress at this time. No changes from 6 previously documented assessment. Patient and/or family updated on plan of care and expected duration. Pain level reassessed. Patient is alert, oriented x 3, equal unlabored respirations, skin warm/dry/pink. 13:27 Reassessment: d/c pending IV fluid completion and med followup. kc6 14:10 Reassessment: Patient appears in no apparent distress at this time. No changes from kc6 previously documented assessment. Patient and/or family updated on plan of care and expected duration. Pain level reassessed. Patient is alert, oriented x 3, equal unlabored respirations, skin warm/dry/pink. Vital Signs: 11:08 BP 114 / 79; Pulse 67; Resp 19 S; Temp 97.7(O); Pulse Ox 100% on R/A; Weight 43.09 kg kc6 (R); Height 5 ft. 0 in. (R); Pain 10/10; 12:55 Pulse 81; Resp 16 S; Pulse Ox 100% on R/A; kc6 14:10 BP 116 / 71; Pulse 69; Resp 17 S; Pulse Ox 100% on R/A; kc6 11:08 Body Mass Index 18.55 (43.09 kg, 152.4 cm) kc6 11:08 Pain Scale: Adult kc6 ED Course: 10:58 Patient arrived in ED. rg4 11:05 Alden Lindsay MD is Attending Physician. oren 11:08 Andra Trevino RN is Primary Nurse. kc6 11:10 Triage completed. kc6 11:11 Arm band placed on. kc6 11:12 Patient has correct armband on for positive identification. Bed in low position. Call kc6 light in reach. Side rails up X 1. 11:30 US Transvaginal Study (Probe) In Process Unspecified. EDMS 12:00 Missed attempt(s): 22 gauge in right forearm. antecubital area. kc6 13:17 Sharri Pichardo MD is Referral Physician. oren 14:11 No provider procedures requiring assistance completed. IV discontinued, intact, kc6 bleeding controlled, No redness/swelling at site. Pressure dressing applied. Administered Medications: 12:21 Drug: NS 0.9% IV 1000 ml Route: IV; Rate: 1 bolus; Site: right forearm; kc6 14:12 Follow up: Response: No adverse reaction kc6 13:27 Drug: fentaNYL (PF) IVP 25 mcg Route: IVP; Site: right forearm; kc6 14:11 Follow up: Response: No adverse reaction; Pain is decreased; RASS: Alert and Calm (0) kc6 13:27 Drug: Ondansetron IVP 4 mg Route: IVP; Site: right forearm; kc6 14:11 Follow up: Response: No adverse reaction; Nausea is decreased kc6 Medication: 14:11 VIS not applicable for this client. kc6 Outcome: 13:18 Discharge ordered by MD. lott 14:11 Discharged to home ambulatory, with significant other. kc6 14:11 Condition: improved 14:11 Discharge instructions given to patient, Instructed on discharge instructions, follow up and referral plans. medication usage, Demonstrated understanding of instructions, follow-up care, medications, Prescriptions given X 2. 14:11 Patient left the ED. kc6 Signatures: Dispatcher [employer] EDAlden Flanagan MD MD cha Garcia, Rubi rg4 Andra Trevino RN RN kc6
--- NOTE | 2022-11-29 13:19 | EDPHYS ---
Physician Documentation [facility] Name: Gloria Modi Age: 27 yrs Sex: Female : 1995 Arrival Date: 11/29/2022 Time: 10:56 Bed 14 Private MD: JULIETA Physician Alden Lindsay HPI: 11/29 11:50 This 27 yrs old Female presents to ER via Ambulatory with complaints of oren Vaginal Bleeding, Nausea, Weakness. 11:50 The patient presents with vaginal bleeding that is a desire for a test. oren Onset: The symptoms/episode began/occurred 2 day(s) ago. Modifying factors: The symptoms are alleviated by remaining still, the symptoms are aggravated by movement. Associated signs and symptoms: Pertinent positives: cramping. Severity of symptoms: At their worst the symptoms were mild, in the emergency department the symptoms are unchanged. The patient is sexually active, reportedly has a single partner. The patient has not experienced similar symptoms in the past. 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 - Social history:: Smoking status: Reported history of juuling and/or vaping. - Family history:: not pertinent. ROS: 11:50 Constitutional: Negative for fever, chills, and weight loss, Eyes: Negative for injury, oren pain, redness, and discharge, ENT: Negative for injury, pain, and discharge, Neck: Negative for injury, pain, and swelling, Cardiovascular: Negative for chest pain, palpitations, and edema, Respiratory: Negative for shortness of breath, cough, wheezing, and pleuritic chest pain, Back: Negative for injury and pain, : Negative for injury, bleeding, discharge, and swelling, MS/Extremity: Negative for injury and deformity, Skin: Negative for injury, rash, and discoloration, Neuro: Negative for headache, weakness, numbness, tingling, and seizure, Psych: Negative for depression, anxiety, suicide ideation, homicidal ideation, and hallucinations, Allergy/Immunology: Negative for hives, rash, and allergies, Endocrine: Negative for neck swelling, polydipsia, polyuria, polyphagia, and marked weight changes, Hematologic/Lymphatic: Negative for swollen nodes, abnormal bleeding, and unusual bruising. 11:50 Abdomen/GI: Positive for abdominal pain, of the left lower quadrant. Exam: 11:50 Constitutional: This is a well developed, well nourished patient who is awake, alert, oren and in no acute distress. Head/Face: Normocephalic, atraumatic. Eyes: Pupils equal round and reactive to light, extra-ocular motions intact. Lids and lashes normal. Conjunctiva and sclera are non-icteric and not injected. Cornea within normal limits. Periorbital areas with no swelling, redness, or edema. ENT: Nares patent. No nasal discharge, no septal abnormalities noted. Tympanic membranes are normal and external auditory canals are clear. Oropharynx with no redness, swelling, or masses, exudates, or evidence of obstruction, uvula midline. Mucous membranes moist. Neck: Trachea midline, no thyromegaly or masses palpated, and no cervical lymphadenopathy. Supple, full range of motion without nuchal rigidity, or vertebral point tenderness. No Meningismus. Chest/axilla: Normal chest wall appearance and motion. Nontender with no deformity. No lesions are appreciated. Cardiovascular: Regular rate and rhythm with a normal S1 and S2. No gallops, murmurs, or rubs. Normal PMI, no JVD. No pulse deficits. Respiratory: Lungs have equal breath sounds bilaterally, clear to auscultation and percussion. No rales, rhonchi or wheezes noted. No increased work of breathing, no retractions or nasal flaring. Abdomen/GI: Soft, non-tender, with normal bowel sounds. No distension or tympany. No guarding or rebound. No evidence of tenderness throughout. Back: No spinal tenderness. No costovertebral tenderness. Full range of motion. Skin: Warm, dry with normal turgor. Normal color with no rashes, no lesions, and no evidence of cellulitis. MS/ Extremity: Pulses equal, no cyanosis. Neurovascular intact. Full, normal range of motion. Neuro: Awake and alert, GCS 15, oriented to person, place, time, and situation. Cranial nerves II-XII grossly intact. Motor strength 5/5 in all extremities. Sensory grossly intact. Cerebellar exam normal. Normal gait. Psych: Awake, alert, with orientation to person, place and time. Behavior, mood, and affect are within normal limits. Vital Signs: 11:08 BP 114 / 79; Pulse 67; Resp 19 S; Temp 97.7(O); Pulse Ox 100% on R/A; Weight 43.09 kg 6 (R); Height 5 ft. 0 in. (R); Pain 10/10; 12:55 Pulse 81; Resp 16 S; Pulse Ox 100% on R/A; 6 14:10 BP 116 / 71; Pulse 69; Resp 17 S; Pulse Ox 100% on R/A; 6 11:08 Body Mass Index 18.55 (43.09 kg, 152.4 cm) [facility] 11:08 Pain Scale: Adult [facility] MDM: 11:05 Patient medically screened. [facility] 11:54 Differential diagnosis: dysmenorrhea, malignancy, menorrhea, ovarian cyst, postcoital oren bleeding, ruptured ectopic , uterine fibroids, urinary tract infection. Data reviewed: vital signs, nurses notes, lab test result(s), radiologic studies, ultrasound. Consideration of Admission/Observation Escalation of care including admission/observation considered. I considered the following discharge prescriptions or medication management in the emergency department Medications were administered in the Emergency Department. See MAR. Test considered but Not performed: CT: NO CT ABD PELVIS. Historians other than the Patient: PAT ONLY. Care significantly affected by the following chronic conditions: BIPOLAR, CBP, G BARRE, PTSD. Counseling: I had a detailed discussion with the patient and/or guardian regarding the historical points, exam findings, and any diagnostic results supporting the discharge/admit diagnosis, radiology results. 11/29 11:06 Order name: CBC with Diff; Complete Time: 12:48 [facility] 11/29 11:06 Order name: Comprehensive Metabolic Panel; Complete Time: 12:48 [facility] 11/29 11:35 Order name: Test, Serum [facility] 11/29 12:14 Order name: Lipase; Complete Time: 12:48 [facility] 11/29 11:06 Order name: US Transvaginal Study (Probe); Complete Time: 12:34 [facility] Administered Medications: 12:21 Drug: NS 0.9% IV 1000 ml Route: IV; Rate: 1 bolus; Site: right forearm; kc6 14:12 Follow up: Response: No adverse reaction kc6 13:27 Drug: fentaNYL (PF) IVP 25 mcg Route: IVP; Site: right forearm; kc6 14:11 Follow up: Response: No adverse reaction; Pain is decreased; RASS: Alert and Calm (0) 6 13:27 Drug: Ondansetron IVP 4 mg Route: IVP; Site: right forearm; kc6 14:11 Follow up: Response: No adverse reaction; Nausea is decreased kc6 Disposition Summary: 11/29/22 13:18 Discharge Ordered Location: Home [facility] Problem: new oren Symptoms: have improved oren Condition: Stable oren Diagnosis - Dysmenorrhea, unspecified oren - Nausea with vomiting, unspecified oren - Other ovarian cysts oren Followup: oren - With: Private Physician - When: 2 - 3 days - Reason: Recheck today's complaints, Continuance of care, Re-evaluation by your physician Followup: oren - With: - When: 2 - 3 days - Reason: Recheck today's complaints, Re-evaluation by your physician Discharge Instructions: - Discharge Summary Sheet oren - Nausea and Vomiting, Adult oren - Nausea, Adult oren - Weakness oren - Weakness, Btfs-nl-Iiot oren - Dysmenorrhea, [id number]-[id number] oren - Nausea, Adult, [id number] [facility] Forms: - Medication Reconciliation Form [facility] - Thank You Letter [facility] - Antibiotic Education [facility] - Prescription Opioid Use [facility] - Patient Portal Instructions [facility] - Leadership Thank You Letter [facility] - Work release form eh3 Prescriptions: - diclofenac sodium 50 mg Oral tablet, delayed release (enteric coated) - take 1 tablet by ORAL route every 8 hours as needed for pain; 21 tablet; [facility] Refills: 0, Product Selection Permitted - Zofran 4 mg Oral Tablet - take 1 tablet by ORAL route every 12 hours As needed; 20 tablet; Refills: 0, [facility] Product Selection Permitted Signatures: Dispatcher [employer] Alden Cadena MD MD cha Campbell, Kaitlyn RN RN kc6 Jewels Willis RN RN [id number] Corrections: (The following items were deleted from the chart) 12:57 11:06 Test, Urine+UC.LAB.BRZ ordered. EDMS EDMS
[2022-11-29] MEDS ORDERED: FENTANYL CITR 100 MCG/2 ML ONE (13:30)
[2022-11-29] MEDS ORDERED: ONDANSETRON 4 MG/2 ML VIAL ONE (13:30)
[2022-11-29 14:17] VITALS: TEMP 97.7; O2SAT 100
[2022-11-29 14:20] VITALS: BP 116/71
== END 2022-11-29 14:11 | disposition home or self-care (01) ==
LOC: ER 10:56
DX: N83.299 Other ovarian cyst, unspecified side (principal); R11.2 Nausea with vomiting, unspecified; Z88.5 Allergy status to narcotic agent; Z91.040 Latex allergy status; Z91.048 Other nonmedicinal substance allergy status
CPT/HCPCS: 85025; 36415; 84703; 83690; 80053; 76830; 96375; 96374; 99284; J3010; J2405; J7030

== ENCOUNTER 2023-01-15 08:34 | Emergency (ER) | payer OTHER, SELFPAY ==
--- OUTSIDE RECORDS SUMMARY | 2023-01-15 08:54 | XMS REPORT | Continuity of Care Document ---
:1995 Author Organization [facility] [place] [facility] t Address [address] [facility] [address] [place] [address] Support Name Relationship Address Phone Josefina Mendoza Parent [id number] [phone] [place] [address] Garret Merino Significant Other [address] [phone] [address] [place] [address] Unavailable E [address]19 MIRANDA Y [phone] [place] [address] SEKOU HAMMONDS MD Emergency Provider [address] [place] [address] PHYSICIAN, NO Primary Care Physician Unavailable Unavailab ISABEL Palmer Next of Kin [address] [place] [address] TAYLOR DUMONT MD Emergency Provider [address] [facility] [phone] [place] [address] JANNETH VELASQUEZ MD Emergency Provider [address] [phone] [place] [address] MD ENE BUNDY Emergency Provider [address] [place] [address] NASRA MCLEAN Unavailable [address] [place] [address] MD EMILY ARMAS Emergency Provider [address] [facility] [place] [address] MD CEASAR MENESES Emergency Provider [address] [address] CARIDAD, Unavailable [address] Unavailable [place]RA(MPOA) [place] [address] DO MADAN BRIGHT Emergency Provider [address] [facility] [email or web address] [address] MD NATHAN YAO Emergency Provider [address] [place] [address] NASRA MCLEAN Unavailable [address] [place] [address] TORI GIBBONS Primary Care Physician [address] [facility] [place] [id number] MD HERNANDEZ PENNY Emergency Provider [address] [phone] [place] [address] MD LOKI RAMOS Other Provider [address] [facility] [place] [address] ISABEL SUAREZ Family Member [address] [place] [address] Care Team Providers Name Role Phone Asked, No Pcp Primary Care Physician Unavailable Presley_Gemma Attending Clinician Unavailable TORI GIBBONS Attending Clinician Unavailable Caitlin Attending Clinician Unavailable Riddhi Attending Clinician Unavailable Pob, [facility] Main Attending Clinician Unavailable Joanne Hernandez MD Attending Clinician JOANNE HERNANDEZ Attending Clinician Unavailable Doctor Unassigned, [place] Attending Clinician Unavailable Merari CONTRERAS, Elan Del Castillo Attending Clinician [phone] Rajat Yuen MD Attending Clinician RAJAT YUEN Attending Clinician Unavailable Brady Pedro S Attending Clinician BRADY BRANTLEY S Attending Clinician Unavailable LUKAS MORENO Attending Clinician [...] Number Effective Date Expiration Date S qu[place] [id number] [place]) [place] [facility] - [id number] [facility]) [facility] [id number] 2020 [facility] (MEDICAID 00:00:00 REPLACEMENT - HMO) [facility]LY [facility] [id number] 2019 [facility] (MEDICAID 00:00:00 HMO) Problems Condition Condition Condition Status Onset Resolution Last Treating Co mments Source Name Details Category Date Date Treatment Clinician Date Infection Infection Problem Active [facility] of biliary of Biliary 9-25 da tract Tract 00:00: Medical 00 Group Biliary Biliary Problem Active [facility] calculus Calculus 9-14 da 00:00: Medical 00 Group Biliary Biliary Problem Active [facility] stricture Stricture 9-14 da 00:00: Medical 00 Group Anxiety Anxiety Problem Active [facility] 8-15 da 00:00: Medical 00 Group Epigastric Epigastric Problem Active M [facility] pain Pain 8-15 da 00:00: Medical Group Generalize Generalize Problem Active M [facility] d [...] Deficiency 2-27 da anemia Anemia 00:00: Medical Group Guillain-B Guillain-B Problem Active M [facility] arr?syndro arr?Syndro 2-23 da co me 00:00: Medical 00 Group Anemia Anemia [...] y y 6-04 da syncytial Syncytial 00:00: 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 00:00: [place] 00 Medical Branch Severe Severe Problem Active [...] growth Growth 1-02 da restrictio Restrictio 00:00: [place] dical n n 00 Group Small for Small for Problem Active 2018-04 [facility] gestationa Gestationa 2-16 da l age l Age 00:00: Medical fetus Fetus 00 Group Candidiasi Candidiasi Problem Active 2018-04 M [facility] s of s of 2-02 da vagina Vagina 00:00: Medical 00 Group Glucose Glucose Problem Active 2018-04 [facility] tolerance Tolerance 125 da test Test 00:00: Medical during During 00 Group - baby not - Baby Not yet Yet delivered Delivered outside outside reference Reference range Range Bacterial Bacterial Problem Active 2018-04 [facility] vaginosis Vaginosis 05-09 da in in 00:00: Medical 00 Grou [...] Active Overview : [facility] pelvic pelvic [facility]-07 [facility] inflammato inflammato 00:00: g of [...] 00:00: 00 Rash Rash Disease Active Erick 2 Health 00:00: 00 Boil Boil Disease Active 2012-04 [facility] 04-27 Health 00:00: 00 No known No known Disease Unive rs active active ity of problems problems [facility] Allergies, Adverse Reactions, Alerts Allergy [...] OPHEN-CO 4-14 [facility] DEINE 00:00: Medical 00 [place] ACETAMIN DRUG Active Other-Cmnt Univ ers OPHEN-CO 3-31 ity of DEINE 00:00: [facility] Branch POLLEN DRUG Active ITCHING Univers EXTRACTS INGREDI 3-31 ity of 00:00: [facility] Pollen Drug Active Rash Univers Extracts Allergy 3-31 ity of 00:00: [facility] Acetamin Propensi Active Other - See 0 Chest U nivers ophen-Co ty to comments 3-31 pain ity of deine adverse 00:00: [place] reaction 00 [facility] [place] NO KNOWN Drug Active Univers ALLERGIE Class ity of S [facility] Family History Family Member Diagnosis Comments Start Date Stop Date Source Maternal grandfather Hypertension [facility] Maternal grandfather Cancer [facility] Maternal grandfather Diabetes [facility] Maternal grandfather Heart [facility] Paternal grandmother Cancer [facility] Social History Social Habit Start Date Stop Date Quantity Comments Source Gender identity [facility] Sexual orientation [facility] History SDOR [facility] History of tobacco Cigarette Smoker University of use [facility] Exposure to 2022-07-22 2022-08-01 Not sure [facility]-CoV-2 (event) 00:00:00 12:08:00 [facility] Branch History [facility] 2022-07-28 2022-07-[address] [facility] Med 00:00:00 00:00:[address] [facility] 2022-07-28 2022-07-[address] [facility] Housing Unable to 00:00:00 00:00:00 Medical Center Pay History [facility] 2022-07-28 2022-07-[address] [facility] Places 00:00:00 00:00:00 Medical Ce nter Lived History [facility] 2022-07-28 2022-07-[address] [facility] Homeless 00:00:00 00:00:00 Medical Center Last Year Alcohol intake 2017-03-06 2017-03-06 Current [facility] 00:00:00 00:00:00 non-drinker of Hospital alcohol (finding) History of Social 2017-03-06 2017-03-[address] [facility] 00:00:00 00:00:00 Hospital Sex Assigned At [address] [facility] 00:00:00 00:00:00 Medical Center Smoking Status Start Date Stop Date Source Former Smoker [facility] Never smoked tobacco [facility] Tobacco smoking consumption [facility] Branch Smokes tobacco daily 2022-07-13 00:00:00 [facility] Medications Ordered Filled Start Stop Current Ordering Indication Dosage Frequency Signature Comments Components Source Medication Medication Date Date Medication? Clinician (SIG) Name Name pantoprazol 2023- No 40mg QD Take [address] [facility] 07-28 tablet (40 [facility] (PROTONIX) 00:00: 23:59 mg total) M edical 40 MG 00 :00 by mouth Center tablet in the morning. pantoprazol 2023- No 40mg QD Take [address] [facility] 07-28 tablet (40 [facility] (PROTONIX) 00:00: 23:59 mg total) M edical 40 MG 00 :00 by mouth Center tablet in the morning. pantoprazol 2023- No 40mg QD Take 1 MARITZA Jernigan e 07-28 tablet (40 [facility] (PROTONIX) 00:00: [...] 4 mg ity of tablet 16:04: tablet Dean 52 TAKE 1 Medical TABLET BY Branch MOUTH THREE TIMES DAILY cyproheptad Yes cyprohepta Univers ine 4 mg 07-13 dine 4 mg ity of tablet 16:04: tablet [facility] 52 TAKE 1 Medical TABLET BY Branch MOUTH THREE TIMES DAILY cyproheptad Yes cyprohepta Univers ine 4 mg - dine 4 mg ity of tablet 16:04: tablet [facility] 52 TAKE 1 Medical TABLET BY Branch MOUTH THREE TIMES DAILY traMADoL 50 2022- No tramadol U nivers mg tablet 07-13 50 mg ity of 16:04: 00:00 tablet Dean 52 :00 TAKE 1 Medical TABLET BY [...] Branch 07/13/22 at 1015, SOPHIA traMADoL 50 2023-0 Yes [id number] 50mg Take 1 Univ ers mg tablet 3-31 tablet by ity o f 00:00: mouth [place] 00 every 6 Medical (six) Branch hours as needed for Pain (scale 7-10). Indication s: acute pain ondansetron 3-0 Yes [id number] 4mg Take 1 Univers 4 mg 3-31 [...] (scale 7-10). Indication s: acute pain ondansetron 3-0 Yes [id number] 4mg Take 1 Univers 4 mg 3-31 [...] (scale 7-10). Indication s: acute pain ondansetron 3-0 Yes [id number] 4mg Take 1 Univers 4 mg 3-31 tablet by ity of disintegrat 00:00: mouth [place] ing tablet 00 every 8 Medica l (eight) Branch hours as needed for Nausea and Vomiting (N/V). ibuprofen 3-0 Yes Univers 800 mg 1-31 ity of tablet 00:00: [place] [facility] ibuprofen 2023-0 Yes Univers 800 mg 1-31 ity of tablet 00:00: Medical Branch ibuprofen 2023-0 Yes Univers 800 mg 1-31 ity of tablet 00:00: Medical Branch gabapentin 2-0 Yes gabapentin U nivers 300 mg 9-23 300 mg ity of capsule 15:59: capsule [address] gabapentin 2021-0 Yes gabapentin U nivers 300 mg 9-23 300 mg ity of capsule 15:59: capsule [address] gabapentin 2021-0 Yes gabapentin U nivers 300 mg 9-23 300 mg ity of capsule 15:59: capsule [address] gabapentin 2021-0 Yes gabapentin U nivers 300 mg 9-23 300 mg ity of capsule 15:59: capsule [address] gabapentin 2021-0 Yes gabapentin U nivers 300 mg 9-23 300 mg ity of capsule 15:59: capsule [address] gabapentin 0 Yes gabapentin U nivers 300 mg 9-23 300 mg ity of capsule 15:59: capsule [address] gabapentin 2021-0 Yes gabapentin U nivers 300 mg 9-23 300 mg ity of capsule 15:59: capsule [address] gabapentin 0 Yes gabapentin U nivers 300 mg 9-23 300 mg ity of capsule 15:59: capsule [address] gabapentin 0 Yes gabapentin U nivers 300 mg 9-23 300 mg ity of capsule 15:59: capsule [address] gabapentin Yes gabapentin U nivers 300 mg 9-23 300 mg ity of capsule 15:59: capsule [address] gabapentin 0 Yes gabapentin U nivers 300 mg 9-23 300 mg ity of capsule 15:59: capsule [address] gabapentin 0 Yes gabapentin U nivers 300 mg 9-23 300 mg ity of capsule 15:59: capsule [address] gabapentin 0 Yes gabapentin U nivers 300 mg 9-23 300 mg ity of capsule 15:59: capsule [address] gabapentin 0 Yes gabapentin U nivers 300 mg 9-23 300 mg ity of capsule 15:59: capsule [address] gabapentin 0 Yes gabapentin U nivers 300 mg 9-23 300 mg ity of capsule 15:59: capsule [address] SERTraline 0 Yes sertraline U nivers 50 mg 9-23 50 mg ity of tablet 15:59: tablet [address] tiZANidine 0 Yes tizanidine U nivers 4 mg tablet 9- 4 mg ity of 15:59: tablet [address] SERTraline 0 Yes sertraline U nivers 50 mg 9-23 50 mg ity of tablet 15:59: tablet [address] tiZANidine 0 Yes tizanidine U nivers 4 mg tablet 9-23 4 mg ity of 15:59: tablet [address] SERTraline Yes sertraline U nivers 50 mg 9-23 50 mg ity of tablet 15:59: tablet [address] tiZANidine Yes tizanidine U nivers 4 mg tablet 9-23 4 mg ity of 15:59: tablet [address] tiZANidine Yes tizanidine U nivers 4 mg tablet 9-23 4 mg ity of 15:59: tablet [address] SERTraline Yes sertraline U nivers 50 mg 9-23 50 mg ity of tablet 15:59: tablet [address] SERTraline Yes sertraline U nivers 50 mg 9-23 50 mg ity of tablet 15:59: tablet [address] tiZANidine Yes tizanidine U nivers 4 mg tablet 9-23 4 mg ity of 15:59: tablet [address] SERTraline Yes sertraline U nivers 50 mg 9-23 50 mg ity of tablet 15:59: tablet [address] tiZANidine Yes tizanidine U nivers 4 mg tablet 9-23 4 mg ity of 15:59: tablet [address] SERTraline Yes sertraline U nivers 50 mg 9-23 50 mg ity of tablet 15:59: tablet [address] tiZANidine Yes tizanidine U nivers 4 mg tablet 9-23 4 mg ity of 15:59: tablet [address] SERTraline Yes sertraline U nivers 50 mg 9-23 50 mg ity of tablet 15:59: tablet [address] tiZANidine Yes tizanidine U nivers 4 mg tablet 9-23 4 mg ity of 15:59: tablet [address] SERTraline Yes sertraline U nivers 50 mg 9-23 50 mg ity of tablet 15:59: tablet [address] tiZANidine Yes tizanidine U nivers 4 mg tablet 9-23 4 mg ity of 15:59: tablet [address] SERTraline Yes sertraline U nivers 50 mg 9-23 50 mg ity of tablet 15:59: tablet [address] tiZANidine Yes tizanidine U nivers 4 mg tablet 9-23 4 mg ity of 15:59: tablet [address] SERTraline Yes sertraline U nivers 50 mg 9-23 50 mg ity of tablet 15:59: tablet [address] tiZANidine Yes tizanidine U nivers 4 mg tablet 9-23 4 mg ity of 15:59: tablet [address] SERTraline Yes sertraline U nivers 50 mg 9-23 50 mg ity of tablet 15:59: tablet [address] tiZANidine Yes tizanidine U nivers 4 mg tablet 9-23 4 mg ity of 15:59: tablet [address] SERTraline Yes sertraline U nivers 50 mg 9-23 50 mg ity of tablet 15:59: tablet [address] tiZANidine Yes tizanidine U nivers 4 mg tablet 9-23 4 mg ity of 15:59: tablet [address] SERTraline Yes sertraline U nivers 50 mg 9-23 50 mg ity of tablet 15:59: tablet [address] tiZANidine Yes tizanidine U nivers 4 mg tablet 9-23 4 mg ity of 15:59: tablet [address] tiZANidine Yes tizanidine U nivers 4 mg tablet 9-23 4 mg ity of 15:59: tablet [address] SERTraline Yes sertraline U nivers 50 mg 9-23 50 mg ity of tablet 15:59: tablet [address] ketorolac ketorolac No ketorolac [facility] 30 mg/mL (1 30 mg/mL (1 9-23 30 mg/mL da mL) mL) 11:35: (1 mL) Medical injection injection 44 injection Group solutionInj solutionInj solutionIn ect 1 mL by ect 1 mL by ject 1 mL intramuscul intramuscul by ar route. ar route. intramuscu lar route. sumatriptan 2021-0 Yes Univer s 100 mg 9-22 ity of tablet 00:00: [place] 00 Medical Branch sumatriptan 2021-0 Yes Univer s 100 mg 9-22 ity of tablet 00:00: [place] 00 Medical Branch sumatriptan 2021-0 Yes Univer s 100 mg 9-22 ity of tablet 00:00: [place] 00 Medical Branch sumatriptan 2021-0 Yes Univer s 100 mg 9-22 ity of tablet 00:00: [place] 00 Medical Branch sumatriptan 2021-0 Yes Univer s 100 mg 9-22 ity of tablet 00:00: [place] 00 Medical Branch sumatriptan 2021-0 Yes Univer s 100 mg 9-22 ity of tablet 00:00: [place] 00 Medical Branch sumatriptan 2021-0 Yes Univer s 100 mg 9-22 ity of tablet 00:00: [place] 00 Medical Branch sumatriptan 2021-0 Yes Univer s 100 mg 9-22 ity of tablet 00:00: [place] [address] Medical Branch sumatriptan 2021-0 Yes Univer s 100 mg 9-22 ity of tablet 00:00: [place] 00 Medical Branch sumatriptan 2021-0 Yes Univer s 100 mg 9-22 ity of tablet 00:00: [place] 00 Medical Branch sumatriptan 2021-0 Yes Univer s 100 mg 9-22 ity of tablet 00:00: [place] 00 Medical Branch sumatriptan 2021-0 Yes Univer s 100 mg 9-22 ity of tablet 00:00: [place] 00 Medical Branch sumatriptan 2021-0 Yes Univer s 100 mg 9-22 ity of tablet 00:00: [place] [address] Medical Branch sumatriptan 2021-0 Yes Univer s 100 mg 9-22 ity of tablet 00:00: [place] 00 Medical Branch sumatriptan 2021-0 Yes Univer s 100 mg 9-22 ity of tablet 00:00: [place] [address] Medical Branch predniSONE 2016-0 Yes Angioedema, 20mg QD Take [...] 2 [facility] (VENTOLIN 3-23 subsequent Puffs by [employer] HFA,PROVENT 00:00: encounter mouth [place] 00 every [...] 2 [facility] (VENTOLIN 3-23 subsequent Puffs by [employer] HFA,PROVENT 00:00: encounter mouth [place] 00 every 4 HFA,PROAIR hours as HFA) 90 needed for mcg/actuati Wheezing on inhaler or Shortness of Breath. predniSONE 0 Yes Angioedema, 20mg QD Take 2 [facility] (DELTASONE) 3-23 subsequent tablets by [employer] 10 mg 00:00: encounter mouth tablet 00 daily Prn allergic reactions: urticaria/ angioedema . albuterol Yes Angioedema, 2{puff} Inhale 2 [facility] (VENTOLIN 3-23 subsequent Puffs by [employer] HFA,PROVENT 00:00: encounter mouth [place] 00 every 4 HFA,PROAIR hours as HFA) 90 needed for mcg/actuati Wheezing on inhaler or Shortness of Breath. predniSONE 0 Yes Angioedema, 20mg QD Take 2 [facility] (DELTASONE) 3-23 subsequent tablets by [employer] 10 mg 00:00: encounter mouth tablet 00 daily Prn allergic reactions: urticaria/ angioedema . albuterol 0 Yes Angioedema, 2{puff} Inhale 2 [facility] (VENTOLIN 3-23 subsequent Puffs by [employer] HFA,PROVENT 00:00: encounter mouth [place] 00 every 4 HFA,PROAIR hours as HFA) 90 needed for mcg/actuati Wheezing on inhaler or Shortness of Breath. predniSONE 20160 Yes Angioedema, 20mg QD Take 2 [facility] (DELTASONE) 3-23 subsequent tablets by [employer] 10 mg 00:00: encounter mouth tablet 00 daily Prn allergic reactions: urticaria/ angioedema . albuterol 2015-0 Yes Angioedema, 2{puff} Inhale 2 [facility] (VENTOLIN 3-23 subsequent Puffs by [employer] HFA,PROVENT 00:00: encounter mouth [place] 00 every [...] 2 [place] (VENTOLIN 3-23 subsequent Puffs by [employer] HFA,PROVENT 00:00: encounter mouth [place] 00 every 4 HFA,PROAIR hours as HFA) 90 needed for mcg/actuati Wheezing on inhaler or Shortness of Breath. predniSONE 2016-0 Yes Angioedema, 20mg QD Take 2 [facility] (DELTASONE) 3-23 subsequent tablets by [employer] 10 mg 00:00: encounter mouth tablet 00 daily Prn allergic reactions: urticaria/ angioedema . albuterol 2016-0 Yes Angioedema, 2{puff} Inhale 2 [facility] (VENTOLIN 3-23 subsequent Puffs by [employer] HFA,PROVENT 00:00: encounter mouth [place] 00 every 4 HFA,PROAIR hours as HFA) 90 needed for mcg/actuati Wheezing on inhaler or Shortness of Breath. predniSONE 2016-0 Yes Angioedema, 20mg QD Take 2 [facility] (DELTASONE) 3-23 subsequent tablets by [employer] 10 mg 00:00: encounter mouth tablet 00 daily Prn allergic reactions: urticaria/ angioedema . albuterol 2016-0 Yes Angioedema, 2{puff} Inhale 2 [facility] (VENTOLIN 3-23 subsequent Puffs by [employer] HFA,PROVENT 00:00: encounter mouth [place] 00 every 4 HFA,PROAIR hours as HFA) 90 needed for mcg/actuati Wheezing on inhaler or Shortness of Breath. predniSONE 2016-0 Yes Angioedema, 20mg QD Take 2 [facility] (DELTASONE) 3-23 subsequent tablets by [employer] 10 mg 00:00: encounter mouth tablet 00 daily Prn allergic reactions: urticaria/ angioedema . albuterol 2016-0 Yes Angioedema, 2{puff} Inhale 2 [facility] (VENTOLIN 3-23 subsequent Puffs by [employer] HFA,PROVENT 00:00: encounter mouth [place] 00 every [...] Wheezing on inhaler or Shortness of Breath. Accrufer 30 Accrufer 30 No Accrufer [facility] mg capsule mg capsule 30 mg da TAKE ONE TAKE ONE capsule Medi cele CAPSULE BY CAPSULE BY TAKE ONE Group MOUTH TWICE MOUTH TWICE CAPSULE BY A DAY A DAY MOUTH TWICE A DAY alprazolam alprazolam No alprazolam [facility] 0.25 mg 0.25 mg 0.25 mg da tablet Take tablet Take tablet Medical 1 tablet 1 tablet Take 1 Group today and 1 today and 1 tablet tablet in tablet in today and the morning the morning 1 tablet in the morning cyproheptad cyproheptad No cyprohepta [place] ine 4 [...] DAILY THREE NEEDED NEEDED TIMES DAILY NEEDED hydroxyzine hydroxyzine No hydroxyzin [place] HCl 25 mg HCl 25 mg e HCl 25 d a tablet tablet mg tablet Medica l Group pantoprazol pantoprazol No pantoprazo [place] e 40 mg e 40 mg le 40 mg da tablet,danilo tablet,danilo tablet,del Medical yed release yed release ayed G roup TAKE 1 TAKE 1 release TABLET BY TABLET BY TAKE 1 MOUTH EVERY MOUTH EVERY TABLET BY DAY 30 DAY 30 MOUTH MINUTES MINUTES EVERY DAY BEFORE BEFORE 30 MINUTES BREAKFAST BREAKFAST BEFORE OR FIRST OR FIRST BREAKFAST MEAL MEAL OR FIRST MEAL sumatriptan sumatriptan No sumatripta [place] 100 mg [...] DAILY 2 TIMES NEEDED NEEDED DAILY NEEDED Accrufer 30 Accrufer 30 No Accrufer [place] mg capsule mg capsule 30 mg da TAKE ONE TAKE ONE capsule Medi cele CAPSULE BY CAPSULE BY TAKE ONE Group MOUTH TWICE MOUTH TWICE CAPSULE BY A DAY A DAY MOUTH TWICE A DAY alprazolam alprazolam No alprazolam [place] 0.25 mg 0.25 mg 0.25 mg da tablet Take tablet Take tablet Medical 1 tablet 1 tablet Take 1 Group today and 1 today and 1 tablet tablet in tablet in today and the morning the morning 1 tablet in the morning cyproheptad cyproheptad No cyprohepta [place] ine 4 [...] DAILY THREE NEEDED NEEDED TIMES DAILY NEEDED hydroxyzine hydroxyzine No hydroxyzin [place] HCl 25 mg HCl 25 mg e HCl 25 d a tablet tablet mg tablet Medica l Group pantoprazol pantoprazol No pantoprazo [place] e 40 mg e 40 mg le 40 mg da tablet,danilo tablet,danilo tablet,del Medical yed release yed release ayed G roup TAKE 1 TAKE 1 release TABLET BY TABLET BY TAKE 1 MOUTH EVERY MOUTH EVERY TABLET BY DAY 30 DAY 30 MOUTH MINUTES MINUTES EVERY DAY BEFORE BEFORE 30 MINUTES BREAKFAST BREAKFAST BEFORE OR FIRST OR FIRST BREAKFAST MEAL MEAL OR FIRST MEAL sumatriptan sumatriptan No sumatripta [place] 100 mg [...] DAILY 2 TIMES NEEDED NEEDED DAILY NEEDED Accrufer 30 Accrufer 30 No Accrufer [place] mg capsule mg capsule 30 mg da TAKE ONE TAKE ONE capsule Medi cele CAPSULE BY CAPSULE BY TAKE ONE Group MOUTH TWICE MOUTH TWICE CAPSULE BY A DAY A DAY MOUTH TWICE A DAY alprazolam alprazolam No alprazolam [place] 0.25 mg 0.25 mg 0.25 mg da tablet TAKE tablet TAKE tablet Medical 1 TABLET BY 1 TABLET BY TAKE 1 Group MOUTH TODAY MOUTH TODAY TABLET BY AND 1 AND 1 MOUTH TABLET IN TABLET IN TODAY AND THE MORNING THE MORNING 1 TABLET IN THE MORNING cyproheptad cyproheptad No cyprohepta [place] ine 4 [...] DAILY THREE NEEDED NEEDED TIMES DAILY NEEDED hydroxyzine hydroxyzine No hydroxyzin [place] HCl 25 mg HCl 25 mg e HCl 25 d a tablet tablet mg tablet Medica l Group ondansetron ondansetron No ondansetro [place] HCl 4 mg HCl 4 mg n HCl 4 mg d a tablet TAKE tablet TAKE tablet Medical 1 TABLET BY 1 TABLET BY TAKE 1 Group MOUTH THREE MOUTH THREE TABLET BY TIMES DAILY TIMES DAILY MOUTH NEEDED NEEDED THREE FOR NAUSEA FOR NAUSEA TIMES DAILY NEEDED FOR NAUSEA pantoprazol pantoprazol No pantoprazo [place] e 40 mg e 40 mg le 40 mg da tablet,danilo tablet,danilo tablet,del Medical yed release yed release ayed G roup TAKE 1 TAKE 1 release TABLET BY TABLET BY TAKE 1 MOUTH EVERY MOUTH EVERY TABLET BY DAY 30 DAY 30 MOUTH MINUTES MINUTES EVERY DAY BEFORE BEFORE 30 MINUTES BREAKFAST BREAKFAST BEFORE OR FIRST OR FIRST BREAKFAST MEAL MEAL OR FIRST MEAL sumatriptan sumatriptan No sumatripta [place] 100 mg [...] DAILY 2 TIMES NEEDED NEEDED DAILY NEEDED Accrufer 30 Accrufer 30 No Accrufer [place] mg capsule mg capsule 30 mg da TAKE ONE TAKE ONE capsule Medi cele CAPSULE BY CAPSULE BY TAKE ONE Group MOUTH TWICE MOUTH TWICE CAPSULE BY A DAY A DAY MOUTH TWICE A DAY alprazolam alprazolam No alprazolam [place] 0.25 mg 0.25 mg 0.25 mg da tablet Take tablet Take tablet Medical 1 tablet 1 tablet Take 1 Group today and 1 today and 1 tablet tablet in tablet in today and the morning the morning 1 tablet in the morning cyproheptad cyproheptad No cyprohepta [place] ine 4 [...] DAILY THREE NEEDED NEEDED TIMES DAILY NEEDED hydroxyzine hydroxyzine No hydroxyzin [place] HCl 25 mg HCl 25 mg e HCl 25 d a tablet tablet mg tablet Medica l Group ondansetron ondansetron No ondansetro [place] HCl 4 mg HCl 4 mg n HCl 4 mg d a tablet TAKE tablet TAKE tablet Medical 1 TABLET BY 1 TABLET BY TAKE 1 Group MOUTH THREE MOUTH THREE TABLET BY TIMES DAILY TIMES DAILY MOUTH NEEDED NEEDED THREE FOR NAUSEA FOR NAUSEA TIMES DAILY NEEDED FOR NAUSEA pantoprazol pantoprazol No pantoprazo [place] e 40 mg e 40 mg le 40 mg da tablet,danilo tablet,danilo tablet,del Medical yed release yed release ayed G roup TAKE 1 TAKE 1 release TABLET BY TABLET BY TAKE 1 MOUTH EVERY MOUTH EVERY TABLET BY DAY 30 DAY 30 MOUTH MINUTES MINUTES EVERY DAY BEFORE BEFORE 30 MINUTES BREAKFAST BREAKFAST BEFORE OR FIRST OR FIRST BREAKFAST MEAL MEAL OR FIRST MEAL sumatriptan sumatriptan No sumatripta [place] 100 mg [...] DAYS EVERY 6 HOURS FOR 10 DAYS albuterol albuterol No 2puff(s Q4H albuterol [place] [...] al MOUTH EVERY MOUTH EVERY TABLET BY [facility] 8 HOURS 8 HOURS MOUTH Ou treac NEEDED NEEDED EVERY 8 h HOURS Program NEEDED tramadol 50 tramadol 50 No tramadol [place] mg tablet mg tablet 50 mg da TAKE 1 TAKE 1 tablet [facility] TABLET BY TABLET BY TAKE 1 al MOUTH EVERY MOUTH EVERY TABLET BY [facility] 4 HOURS 4 HOURS MOUTH Ou treac [...] ML COVID-19, mRNA, COVID-19, mRNA, 2020-09-15 Completed Ajmil [facility]ann LNP-S, PF, 100 LNP-S, PF, 100 [...] quadrivalent - HPV, quadrivalent - 2014-02-05 Completed [facility] 00:00:[facility] influenza, seasonal, influenza, 2014-02-05 Completed Jamil [facility] injectable, seasonal, 00:00:00 [facility] Group preservative free - injectable, ML preservative free - ML HPV, quadrivalent - HPV, quadrivalent - 2014-02-05 Completed [facility] 00:00:[facility] influenza, seasonal, influenza, 2014-02-05 Completed [facility] injectable, seasonal, 00:00:00 [facility] Group preservative free - injectable, ML preservative free - ML HPV, quadrivalent - HPV, quadrivalent - 2014-02-05 Completed [facility] 00:00:[facility] influenza, seasonal, influenza, 2014-02-05 Completed [facility] injectable, seasonal, 00:00:00 [facility] Group preservative free - injectable, ML preservative free - ML HPV, quadrivalent - HPV, quadrivalent - 2014-02-05 Completed [facility] 00:00:00 [facility] Group influenza, seasonal, influenza, 2014-02-05 Completed [facility] injectable, seasonal, 00:00:00 [facility] Group preservative free - injectable, ML preservative free - ML HPV, quadrivalent - HPV, quadrivalent - 2014-02-05 Completed [facility] 00:00:00 [facility] influenza, seasonal, influenza, 2014-02-05 Completed [facility] injectable, seasonal, 00:00:00 [facility] Group preservative free - injectable, ML preservative free - ML HPV, quadrivalent - HPV, quadrivalent - 2014-02-05 Completed [facility] 00:00:00 [facility] influenza, seasonal, influenza, 2014-02-05 Completed [facility] injectable, seasonal, 00:00:00 [facility] Group preservative free - injectable, ML preservative free - ML HPV, quadrivalent - HPV, quadrivalent - 2014-02-05 Completed [facility] 00:00:[facility] influenza, seasonal, influenza, 2014-02-05 Completed [facility] injectable, seasonal, 00:00:00 [facility] Group preservative free - injectable, ML preservative free - ML HPV, quadrivalent - HPV, quadrivalent - 2014-02-05 Completed [facility] 00:00:00 [facility] influenza, seasonal, influenza, 2014-02-05 Completed [facility] injectable, seasonal, 00:00:00 [facility] Group preservative free - injectable, ML preservative free - ML HPV, quadrivalent - HPV, quadrivalent - 2014-02-05 Completed [facility] 00:00:00 [facility] influenza, seasonal, influenza, 2014-02-05 Completed Jam[facility] injectable, seasonal, 00:00:00 [facility] Group preservative free - injectable, ML preservative free - ML HPV, quadrivalent - HPV, quadrivalent - 2014-02-05 Completed [facility] 00:00:[facility] influenza, seasonal, influenza, 2014-02-05 Completed Jam[facility] injectable, seasonal, 00:00:00 [facility] Group preservative free - injectable, ML preservative free - ML HPV, quadrivalent - HPV, quadrivalent - 2014-02-05 Completed [facility] 00:00:[facility] influenza, seasonal, influenza, 2014-02-05 Completed Jamil [facility] injectable, seasonal, 00:00:00 [facility] Group preservative free - injectable, ML preservative free - ML Human Papillomavirus 2014-02-05 Completed [facility] [...] Health Vaccine 00:00:00 Influenza Vaccine 2014-02-05 Completed [facility] 00:00:00 Human Papillomavirus 2014-02-05 Completed [facility] [...] Health Vaccine 00:00:00 Influenza Vaccine 2014-02-05 Completed [facility] 00:00:00 meningococcal MCV4P meningococcal MCV4P 2013-10-21 Completed [place] - ML - ML 00:00:00 [facility] Group meningococcal MCV4P meningococcal MCV4P 2013-10-21 Completed [facility] - ML - ML 00:00:00 [facility] Group meningococcal MCV4P meningococcal MCV4P 2013-10-21 Completed [facility] - ML - ML 00:00:00 [facility] Group meningococcal MCV4P meningococcal MCV4P 2013-10-21 Completed [facility] - ML - ML 00:00:00 [facility] Group meningococcal MCV4P meningococcal MCV4P 2013-10-21 Completed [facility] - ML - ML 00:00:00 [facility] Group meningococcal MCV4P meningococcal MCV4P 2013-10-21 Completed [facility] - ML - ML 00:00:00 [facility] Group meningococcal MCV4P meningococcal MCV4P 2013-10-21 Completed [facility] - ML - ML 00:00:00 [facility] Group meningococcal MCV4P meningococcal MCV4P 2013-10-21 Completed [facility] - ML - ML 00:00:00 [facility] Group meningococcal MCV4P meningococcal MCV4P 2013-10-21 Completed [facility] - ML - ML 00:00:00 [facility] Group meningococcal MCV4P meningococcal MCV4P 2013-10-21 Completed [facility] - ML - ML 00:00:00 [facility] Group meningococcal MCV4P meningococcal MCV4P 2013-10-21 Completed [facility] - ML - ML 00:00:00 [facility] Group MCV4 Meningococcal 2013-10-21 Completed [facility] Conjugate (Menactra) 00:00:00 MCV4 Meningococcal 2013-10-21 Completed [...] Health Conjugate (Menactra) 00:00:00 influenza, seasonal, influenza, 2013-02-25 Completed Jam[facility] injectable, seasonal, 00:00:00 [facility] Group preservative free - injectable, ML preservative free - ML influenza, seasonal, influenza, 2013-02-25 Completed Jamil luann injectable, seasonal, 00:00:00 [facility] Group preservative free - injectable, ML preservative free - ML influenza, seasonal, influenza, 2013-02-25 Completed Jamil lu[facility] injectable, seasonal, 00:00:00 [facility] preservative free - injectable, ML preservative free - ML influenza, seasonal, influenza, 2013-02-25 Completed Jamil luann injectable, seasonal, 00:00:00 [facility] preservative free - injectable, ML preservative free - ML influenza, seasonal, influenza, 2013-02-25 Completed Jam[facility] injectable, seasonal, 00:00:00 [facility] preservative free - injectable, ML preservative free - ML influenza, seasonal, influenza, 2013-02-25 Completed Jam[facility] lu[facility] injectable, seasonal, 00:00:00 [facility] preservative free - injectable, ML preservative free - ML influenza, seasonal, influenza, 2013-02-25 Completed Jamil lu[facility] injectable, seasonal, 00:00:00 [facility] preservative free - injectable, ML preservative free - ML influenza, seasonal, influenza, 2013-02-25 Completed Jamil luann injectable, seasonal, 00:00:00 [facility] Group preservative free - injectable, ML preservative free - ML influenza, seasonal, influenza, 2013-02-25 Completed Jamil luann injectable, seasonal, 00:00:00 [facility] preservative free - injectable, ML preservative free - ML influenza, seasonal, influenza, 2013-02-25 Completed Jamil luann injectable, seasonal, 00:00:00 [facility] Group preservative free - injectable, ML preservative free - ML influenza, seasonal, influenza, 2013-02-25 Completed Jamil luann injectable, seasonal, 00:00:00 [facility] Group preservative free - injectable, ML preservative free - ML Influenza Vaccine 2013-02-25 Completed [facility] 00:00:00 Influenza Vaccine 2013-02-25 Completed [facility] 00:00:00 Influenza Vaccine 2013-02-25 Completed [facility] 00:00:00 Influenza Vaccine 2013-02-25 Completed [facility] 00:00:00 Influenza Vaccine 2013-02-25 Completed [facility] 00:00:00 Influenza Vaccine 2013-02-25 Completed [facility] 00:00:00 Influenza Vaccine 2013-02-25 Completed [facility] 00:00:00 Influenza Vaccine 2013-02-25 Completed [facility] 00:00:00 Influenza Vaccine 2013-02-25 Completed [facility] 00:00:00 Influenza Vaccine 2013-02-25 Completed [facility] 00:00:00 Influenza Vaccine 2013-02-25 Completed [facility] 00:00:00 Influenza Vaccine 2013-02-25 Completed [facility] 00:00:00 Influenza Vaccine 2013-02-25 Completed [facility] 00:00:00 Influenza Vaccine 2013-02-25 Completed [facility] 00:00:00 meningococcal MCV4P meningococcal MCV4P 2009-11-24 Completed [facility] - [facility] - ML 00:00:00 [facility] varicella - ML varicella - ML 2009-11-24 Completed [facility] 00:[facility] Tdap - ML Tdap - ML 2009-11-24 Completed [facility] 00:00:[facility] meningococcal MCV4P meningococcal MCV4P 2009-11-24 Completed [facility] - ML - ML 00:00:00 [facility] Group varicella - ML varicella - ML 2009-11-24 Completed [facility] 00:00:00 [facility] Tdap - ML Tdap - ML 2009-11-24 Completed [facility] 00:00:00 [facility] meningococcal MCV4P meningococcal MCV4P 2009-11-24 Completed [facility] - ML - ML 00:00:00 [facility] Group varicella - ML varicella - ML 2009-11-24 Completed [facility] 00:00:00 [facility] Tdap - ML Tdap - ML 2009-11-24 Completed [facility] 00:00:00 [facility] meningococcal MCV4P meningococcal MCV4P 2009-11-24 Completed [facility] - ML - ML 00:00:00 [facility] Group varicella - ML varicella - ML 2009-11-24 Completed [facility] 00:00:00 [facility] Tdap - ML Tdap - ML 2009-11-24 Completed [facility] 00:00:00 [facility] meningococcal MCV4P meningococcal MCV4P 2009-11-24 Completed [facility] - ML - ML 00:00:00 [facility] Group varicella - ML varicella - ML 2009-11-24 Completed [facility] 00:00:00 [facility] Tdap - ML Tdap - ML 2009-11-24 Completed [facility] 00:00:00 [facility] meningococcal MCV4P meningococcal MCV4P 2009-11-24 Completed [facility] - ML - ML 00:00:00 [facility] Group varicella - ML varicella - ML 2009-11-24 Completed [facility] 00:00:00 [facility] Tdap - ML Tdap - ML 2009-11-24 Completed [facility] 00:00:00 [facility] meningococcal MCV4P meningococcal MCV4P 2009-11-24 Completed [facility] - ML - ML 00:00:00 [facility] Group varicella - ML varicella - ML 2009-11-24 Completed [facility] 00:00:00 [facility] Tdap - ML Tdap - ML 2009-11-24 Completed [facility] 00:00:00 [facility] meningococcal MCV4P meningococcal MCV4P 2009-11-24 Completed [facility] - ML - ML 00:00:00 [facility] Group varicella - ML varicella - ML 2009-11-24 Completed [facility] 00:00:00 [facility] Tdap - ML Tdap - ML 2009-11-24 Completed [facility] 00:00:00 [facility] meningococcal MCV4P meningococcal MCV4P 2009-11-24 Completed [facility] - ML - ML 00:00:00 [facility] Group varicella - ML varicella - ML 2009-11-24 Completed [facility] 00:00:00 [facility] Tdap - ML Tdap - ML 2009-11-24 Completed [facility] 00:00:00 [facility] meningococcal MCV4P meningococcal MCV4P 2009-11-24 Completed [facility] - ML - ML 00:00:00 [facility] Group varicella - ML varicella - ML 2009-11-24 Completed [facility] 00:00:00 [facility] Tdap - ML Tdap - ML 2009-11-24 Completed [facility] 00:00:00 [facility] meningococcal MCV4P meningococcal MCV4P 2009-11-24 Completed [facility] - ML - ML 00:00:00 [facility] Group varicella - ML varicella - ML 2009-11-24 Completed [facility] 00:00:00 [facility] Tdap - ML Tdap - ML 2009-11-24 Completed [facility] 00:00:00 [facility] Tdap Tetanus, 2009-11-[address] [facility] diphtheria, 00:00:00 acellular pertussis Vaccine Varicella Vaccine 2009-11-24 Completed [facility] 00:00:00 MCV4 Meningococcal 2009-11-24 Completed [facility] Conjugate (Menactra) 00:00:00 Tdap Tetanus, 2009-11-[address] [facility] diphtheria, 00:00:00 acellular pertussis Vaccine Varicella Vaccine 2009-11-24 Completed [facility] 00:00:00 MCV4 Meningococcal 2009-11-24 Completed [facility] Conjugate (Menactra) 00:00:00 Tdap Tetanus, 2009-11-[address] [facility] diphtheria, 00:00:00 acellular pertussis Vaccine Varicella Vaccine 2009-11-24 Completed [facility] 00:00:00 MCV4 Meningococcal 2009-11-24 Completed [facility] Conjugate (Menactra) 00:00:00 Tdap Tetanus, 2009-11-24 Completed [facility], 00:00:00 acellular pertussis Vaccine Varicella Vaccine 2009-11-24 Completed [facility] 00:00:00 MCV4 Meningococcal 2009-11-24 Completed [facility] Conjugate (Menactra) 00:00:00 Tdap Tetanus, 2009-11-24 Completed [facility] dip[facility], 00:00:00 acellular pertussis Vaccine Varicella Vaccine 2009-11-24 Completed [facility] 00:00:00 MCV4 Meningococcal 2009-11-24 Completed [facility] Conjugate (Menactra) 00:00:00 Tdap Tetanus, 2009-11-24 Completed [facility] diphthe[facility], 00:00:00 acellular pertussis Vaccine Varicella Vaccine 2009-11-24 Completed [facility] 00:00:00 MCV4 Meningococcal 2009-11-24 Completed [facility] Conjugate (Menactra) 00:00:00 Tdap Tetanus, 2009-11-24 Completed [facility] dip[facility], 00:00:00 acellular pertussis Vaccine Varicella Vaccine 2009-11-24 Completed [facility] 00:00:00 MCV4 Meningococcal 2009-11-24 Completed [facility] Conjugate (Menactra) 00:00:00 Tdap Tetanus, 2009-11-24 Completed [facility] dip[facility]heria, 00:00:00 acellular pertussis Vaccine Varicella Vaccine 2009-11-24 Completed [facility] 00:00:00 MCV4 Meningococcal 2009-11-24 Completed [facility] Conjugate (Menactra) 00:00:00 Tdap Tetanus, 2009-11-24 Completed [facility] diphtheria, 00:00:00 acellular pertussis Vaccine Varicella Vaccine 2009-11-24 Completed [facility] 00:00:00 MCV4 Meningococcal 2009-11-24 Completed [facility] Conjugate (Menactra) 00:00:00 Tdap Tetanus, 2009-11-24 Completed [facility] diphtheria, 00:00:00 acellular pertussis Vaccine Varicella Vaccine 2009-11-24 Completed [facility] 00:00:00 MCV4 Meningococcal 2009-11-24 Completed [facility] Conjugate (Menactra) 00:00:00 Tdap Tetanus, 2009-11-24 Completed [facility] dip[facility]ria, 00:00:00 acellular pertussis Vaccine Tdap Tetanus, 2009-11-24 Completed [facility] diphtheria, 00:00:00 acellular pertussis Vaccine Varicella Vaccine 2009-11-24 Completed [facility] 00:00:00 MCV4 Meningococcal 2009-11-24 Completed [facility] Conjugate (Menactra) 00:00:00 Varicella Vaccine 2009-11-24 Completed [facility] 00:00:00 MCV4 Meningococcal 2009-11-24 Completed [facility] Conjugate (Menactra) 00:00:00 Tdap Tetanus, 2009-11-[address] [facility] diphtheria, 00:00:00 acellular pertussis Vaccine Varicella Vaccine 2009-11-24 Completed [facility] 00:00:00 MCV4 Meningococcal 2009-11-24 Completed [facility] Conjugate (Menactra) 00:00:00 Tdap Tetanus, 2009-11-[address] [facility] diphtheria, 00:00:00 acellular pertussis Vaccine Varicella Vaccine 2009-11-24 Completed [facility] 00:00:00 MCV4 Meningococcal 2009-11-24 Completed [facility] Conjugate (Menactra) 00:00:00 DTaP, unspecified DTaP, unspecified 2001-12-02 Completed [facility] formulation - ML formulation - ML 00:00:00 Me dical Group MMR - ML MMR - ML 2001-12-02 Completed [facility] 00:00:00 [facility] IPV - ML IPV - ML 2001-12-02 Completed [facility] 00:00:00 [facility] DTaP, unspecified DTaP, unspecified 2001-12-02 Completed [facility] formulation - ML formulation - ML 00:00:00 Me dical Group MMR - ML MMR - ML 2001-12-02 Completed [facility] 00:00:00 [facility] IPV - ML IPV - ML 2001-12-02 Completed [facility] 00:00:00 [facility] DTaP, unspecified DTaP, unspecified 2001-12-02 Completed [facility] formulation - ML formulation - ML 00:00:00 Me dical Group MMR - ML MMR - ML 2001-12-02 Completed [facility] 00:00:00 [facility] IPV - ML IPV - ML 2001-12-02 Completed [facility] 00:00:00 [facility] DTaP, unspecified DTaP, unspecified 2001-12-02 Completed [facility] formulation - ML formulation - ML 00:00:00 Me dical Group MMR - ML MMR - ML 2001-12-02 Completed [facility] 00:00:00 [facility] IPV - ML IPV - ML 2001-12-02 Completed [facility] 00:00:00 [facility] DTaP, unspecified DTaP, unspecified 2001-12-02 Completed [facility] formulation - ML formulation - ML 00:00:00 Me dical Group MMR - ML MMR - ML 2001-12-02 Completed [facility] 00:00:00 [facility] IPV - ML IPV - ML 2001-12-02 Completed [facility] 00:00:00 [facility] DTaP, unspecified DTaP, unspecified 2001-12-02 Completed [facility] formulation - ML formulation - ML 00:00:00 Me dical Group MMR - ML MMR - ML 2001-12-02 Completed [facility] 00:00:00 [facility] IPV - ML IPV - ML 2001-12-02 Completed [facility] 00:00:00 [facility] DTaP, unspecified DTaP, unspecified 2001-12-02 Completed [facility] formulation - ML formulation - ML 00:00:00 Me dical Group MMR - ML MMR - ML 2001-12-02 Completed [facility] 00:00:00 [facility] IPV - ML IPV - ML 2001-12-02 Completed [facility] 00:00:00 [facility] DTaP, unspecified DTaP, unspecified 2001-12-02 Completed [facility] formulation - ML formulation - ML 00:00:00 Me dical Group MMR - ML MMR - ML 2001-12-02 Completed [facility] 00:00:00 [facility] IPV - ML IPV - ML 2001-12-02 Completed [facility] 00:00:00 [facility] DTaP, unspecified DTaP, unspecified 2001-12-02 Completed [facility] formulation - ML formulation - ML 00:00:00 Me dical Group MMR - ML MMR - ML 2001-12-02 Completed [facility] 00:00:00 [facility] IPV - ML IPV - ML 2001-12-02 Completed [facility] 00:00:00 [facility] DTaP, unspecified DTaP, unspecified 2001-12-02 Completed [facility] formulation - ML formulation - ML 00:00:00 Me dical Group MMR - ML MMR - ML 2001-12-02 Completed [facility] 00:00:00 [facility] IPV - ML IPV - ML 2001-12-02 Completed [facility] 00:00:00 [facility] DTaP, unspecified DTaP, unspecified 2001-12-02 Completed [facility] formulation - ML formulation - ML 00:00:00 Me dical Group MMR - ML MMR - ML 2001-12-02 Completed [facility] 00:00:00 [facility] IPV - ML IPV - ML 2001-12-02 Completed [facility] 00:00:00 [facility] DTaP Diphtheria, 2001-12-02 Completed [...] Hea lth 00:00:00 DTaP Diphtheria, 2001-12-02 Completed [facility] Tetanus, Acellular, 00:00:00 Pertussis Hib Haemophilus 2001-12-02 Completed [facility] Influenzae Type B 00:00:00 Poliovirus Ipv 2001-12-02 Completed [facility] 00:00:00 Hep B, adolescent or Hep B, adolescent 2000-12-09 Completed [facility] - ML or pediatric - ML 00:00:00 Med ical Group Hep B, adolescent or Hep B, adolescent 2000-12-09 Completed [facility] - ML or pediatric - ML 00:00:00 Med ical Group Hep B, adolescent or Hep B, adolescent 2000-12-09 Completed [facility] - ML or pediatric - ML 00:00:00 Med ical Group Hep B, adolescent or Hep B, adolescent 2000-12-09 Completed [facility] - ML or pediatric - ML 00:00:00 Med ical Group Hep B, adolescent or Hep B, adolescent 2000-12-09 Completed [facility] - ML or pediatric - ML 00:00:00 Med ical Group Hep B, adolescent or Hep B, adolescent 2000-12-09 Completed [facility] - ML or pediatric - ML 00:00:00 Med ical Group Hep B, adolescent or Hep B, adolescent 2000-12-09 Completed [facility] - ML or pediatric - ML 00:00:00 Med ical Group Hep B, adolescent or Hep B, adolescent 2000-12-09 Completed [facility] - ML or pediatric - ML 00:00:00 Med ical Group Hep B, adolescent or Hep B, adolescent 2000-12-09 Completed [facility] - ML or pediatric - ML 00:00:00 Med ical Group Hep B, adolescent or Hep B, adolescent 2000-12-09 Completed [facility] - ML or pediatric - ML 00:00:00 Med ical Group Hep B, adolescent or Hep B, adolescent 2000-12-09 Completed [facility] - ML or pediatric - ML 00:00:00 Med ical Group Hepatitis B Vaccine 2000-12-09 Completed [facility] 00:00:00 Hepatitis B Vaccine 2000-12-09 Completed [facility] 00:00:00 Hepatitis B Vaccine 2000-12-09 Completed [...] - ML OPV - ML 1998-12-02 Completed [facility] 00:00:00 [facility] DTaP-Hib - ML DTaP-Hib - ML 1998-12-02 Completed [facility] 00:[facility] OPV - ML OPV - ML 1998-12-02 Completed [facility] 00:00:00 [facility] DTaP-Hib - ML DTaP-Hib - ML 1998-12-02 Completed [facility] 00:00:[facility] OPV - ML OPV - ML 1998-12-02 Completed [facility] 00:00:00 [facility] DTaP-Hib - ML DTaP-Hib - ML 1998-12-02 Completed [facility] 00:00:[facility] OPV - ML OPV - ML 1998-12-02 Completed [facility] 00:00:00 [facility] DTaP-Hib - ML DTaP-Hib - ML 1998-12-02 Completed [facility] 00:00:[facility] OPV - ML OPV - ML 1998-12-02 Completed [facility] 00:00:00 [facility] DTaP-Hib - ML DTaP-Hib - ML 1998-12-02 Completed [facility] 00:00:[facility] OPV - ML OPV - ML 1998-12-02 Completed [facility] 00:00:00 [facility] DTaP-Hib - ML DTaP-Hib - ML 1998-12-02 Completed [facility] 00:00:[facility] OPV - ML OPV - ML 1998-12-02 Completed [facility] 00:00:00 [facility] DTaP-Hib - ML DTaP-Hib - ML 1998-12-02 Completed [facility] 00:00:[facility] OPV - ML OPV - ML 1998-12-02 Completed [facility] 00:00:00 [facility] DTaP-Hib - ML DTaP-Hib - ML 1998-12-02 Completed [facility] 00:00:[facility] OPV - ML OPV - ML 1998-12-02 Completed [facility] 00:00:00 [facility] DTaP-Hib - ML DTaP-Hib - ML 1998-12-02 Completed [facility] 00:00:[facility] OPV - ML OPV - ML 1998-12-02 Completed [facility] 00:00:00 [facility] DTaP-Hib - ML DTaP-Hib - ML 1998-12-02 Completed [facility] 00:00:[facility] OPV - ML OPV - ML 1998-12-02 Completed [facility] 00:00:00 [facility] Poliovirus Ipv 1998-12-02 Completed [facility] 00:00:00 Poliovirus Ipv 1998-12-02 Completed [facility] 00:00:00 Poliovirus Ipv 1998-12-02 Completed [facility] 00:00:00 Poliovirus Ipv 1998-12-02 Completed [facility] 00:00:00 Poliovirus Ipv 1998-12-02 Completed [facility] 00:00:00 Poliovirus Ipv 1998-12-02 Completed [facility] 00:00:00 Poliovirus Ipv 1998-12-02 Completed [facility] 00:00:00 Poliovirus Ipv 1998-12-02 Completed [facility] 00:00:00 Poliovirus Ipv 1998-12-02 Completed [facility] 00:00:00 Poliovirus Ipv 1998-12-02 Completed [facility] 00:00:00 Poliovirus Ipv 1998-12-02 Completed [facility] Poliovirus Ipv 1998-12-02 Completed [facility] 00:00:00 Poliovirus Ipv 1998-12-02 Completed [facility] 00:00:00 Poliovirus Ipv 1998-12-02 Completed [facility] 00:00:00 varicella - ML varicella - ML 1998-08-31 Completed [facility] 00:[facility] MMR - ML MMR - ML 1998-08-31 Completed [facility] 00:00:00 [facility] Group varicella - ML varicella - ML 1998-08-31 Completed [facility] 00:00:00 [facility] MMR - ML MMR - ML 1998-08-31 Completed [facility] 00:00:00 [facility] Group varicella - ML varicella - ML 1998-08-31 Completed [facility] 00:00:00 [facility] MMR - ML MMR - ML 1998-08-31 Completed [facility] 00:00:00 [facility] Group varicella - ML varicella - ML 1998-08-31 Completed [facility] 00:00:00 [facility] MMR - ML MMR - ML 1998-08-31 Completed [facility] 00:00:00 [facility] Group varicella - ML varicella - ML 1998-08-31 Completed [facility] 00:00:00 [facility] MMR - ML MMR - ML 1998-08-31 Completed [facility] 00:00:00 [facility] Group varicella - ML varicella - ML 1998-08-31 Completed [facility] 00:00:00 [facility] MMR - ML MMR - ML 1998-08-31 Completed [facility] 00:00:00 [facility] Group varicella - ML varicella - ML 1998-08-31 Completed [facility] 00:00:00 [facility] Group MMR - ML MMR - ML 1998-08-31 Completed [facility] 00:00:00 [facility] Group varicella - ML varicella - ML 1998-08-31 Completed [facility] 00:00:00 [facility] MMR - ML MMR - ML 1998-08-31 Completed [facility] 00:00:00 [facility] Group varicella - ML varicella - ML 1998-08-31 Completed [facility] 00:00:00 [facility] MMR - ML MMR - ML 1998-08-31 Completed [facility] 00:00:00 [facility] Group varicella - ML varicella - ML 1998-08-31 Completed [facility] 00:00:00 [facility] MMR - ML MMR - ML 1998-08-31 Completed [facility] 00:00:00 [facility] Group varicella - ML varicella - ML 1998-08-31 Completed [facility] 00:00:00 [facility] Group MMR - ML MMR - ML 1998-08-31 Completed [facility] 00:00:00 [facility] Group Hib Haemophilus 1998-08-31 Completed [facility] Influenzae Type B 00:00:00 Varicella Vaccine 1998-08-31 Completed [facility] 00:00:00 Hib Haemophilus 1998-08-31 Completed [facility] Influenzae Type B 00:00:00 Varicella Vaccine 1998-08-31 Completed [facility] 00:00:00 Hib Haemophilus 1998-08-31 Completed [facility] Influenzae Type B 00:00:00 Varicella Vaccine 1998-08-31 Completed [facility] 00:00:00 Hib Haemophilus 1998-08-31 Completed [facility] Influenzae Type B 00:00:00 Varicella Vaccine 1998-08-31 Completed [facility] 00:00:00 Hib Haemophilus 1998-08-31 Completed [facility] Influenzae Type B 00:00:00 Varicella Vaccine 1998-08-31 Completed [facility] 00:00:00 Hib Haemophilus 1998-08-31 Completed [facility] Influenzae Type B 00:00:00 Varicella Vaccine 1998-08-31 Completed [facility] 00:00:00 Hib Haemophilus 1998-08-31 Completed [facility] Influenzae Type B 00:00:00 Varicella Vaccine 1998-08-31 Completed [facility] 00:00:00 Hib Haemophilus 1998-08-31 Completed [facility] Influenzae Type B 00:00:00 Varicella Vaccine 1998-08-31 Completed [facility] 00:00:00 Hib Haemophilus 1998-08-31 Completed [facility] Influenzae Type B 00:00:00 Hib Haemophilus 1998-08-31 Completed [facility] Influenzae Type B 00:00:00 Varicella Vaccine 1998-08-31 Completed [facility] 00:00:00 Hib Haemophilus 1998-08-31 Completed [facility] Influenzae Type B 00:00:00 Varicella Vaccine 1998-08-31 Completed [facility] 00:00:00 Hib Haemophilus 1998-08-31 Completed [facility] Influenzae Type B 00:00:00 Varicella Vaccine 1998-08-31 Completed [facility] 00:00:00 Varicella Vaccine 1998-08-31 Completed [facility] 00:00:00 Hib Haemophilus 1998-08-31 Completed [facility] Influenzae Type B 00:00:00 Varicella Vaccine 1998-08-31 Completed [facility] 00:00:00 Hib Haemophilus 1998-08-31 Completed [facility] Influenzae Type B 00:00:00 Varicella Vaccine 1998-08-31 Completed [facility] 00:00:00 DTaP, unspecified DTaP, unspecified 1998-03-04 Completed [place] formulation - ML formulation - ML 00:00:00 Me dical Group DTaP, unspecified DTaP, unspecified 1998-03-04 Completed [place] formulation - ML formulation - ML 00:00:00 Me dical Group DTaP, unspecified DTaP, unspecified 1998-03-04 Completed [place] formulation - ML formulation - ML 00:00:00 Me dical Group DTaP, unspecified DTaP, unspecified 1998-03-04 Completed [place] formulation - ML formulation - ML 00:00:00 Me dical Group DTaP, unspecified DTaP, unspecified 1998-03-04 Completed [place] formulation - ML formulation - ML 00:00:00 Me dical Group DTaP, unspecified DTaP, unspecified 1998-03-04 Completed [place] formulation - ML formulation - ML 00:00:00 Me dical Group DTaP, unspecified DTaP, unspecified 1998-03-04 Completed [place] formulation - ML formulation - ML 00:00:00 Me dical Group DTaP, unspecified DTaP, unspecified 1998-03-04 Completed [place] formulation - ML formulation - ML 00:00:00 Me dical Group DTaP, unspecified DTaP, unspecified 1998-03-04 Completed [place] formulation - ML formulation - ML 00:00:00 Me dical Group DTaP, unspecified DTaP, unspecified 1998-03-04 Completed [place] [facility] - ML formulation - ML 00:00:00 Me dical Group DTaP, unspecified DTaP, unspecified 1998-03-04 Completed [place] formulation - ML formulation - ML 00:00:00 [...] Pertussis DTaP, unspecified DTaP, unspecified 1997 Completed [place] formulation - ML formulation - ML 00:00:00 Me dical Group IPV - ML IPV - ML 1997 Completed [facility] 00:[facility] DTaP, unspecified DTaP, unspecified 1997 Completed [place] formulation - ML formulation - ML 00:00:00 Me dical Group IPV - ML IPV - ML 1997 Completed [place] 00:00:[facility] DTaP, unspecified DTaP, unspecified 1997 Completed [place] formulation - ML formulation - ML 00:00:00 Me dical Group IPV - ML IPV - ML 1997 Completed [facility] 00:00:[facility] DTaP, unspecified DTaP, unspecified 1997 Completed [place] formulation - ML formulation - ML 00:00:00 Me dical Group IPV - ML IPV - ML 1997 Completed [facility] 00:00:[facility] DTaP, unspecified DTaP, unspecified 1997 Completed [place] formulation - ML formulation - ML 00:00:00 Me dical Group IPV - ML IPV - ML 1997 Completed [facility] 00:00:[facility] DTaP, unspecified DTaP, unspecified 1997 Completed [place] formulation - ML formulation - ML 00:00:00 Me dical Group IPV - ML IPV - ML 1997 Completed [facility] 00:00:[facility] DTaP, unspecified DTaP, unspecified 1997 Completed [place] formulation - ML formulation - ML 00:00:00 Me dical Group IPV - ML IPV - ML 1997 Completed [facility] 00:00:[facility] DTaP, unspecified DTaP, unspecified 1997 Completed [place] formulation - ML formulation - ML 00:00:00 Me dical Group IPV - ML IPV - ML 1997 Completed [facility] 00:00:[facility] DTaP, unspecified DTaP, unspecified 1997 Completed [place] formulation - ML formulation - ML 00:00:00 Me dical Group IPV - ML IPV - ML 1997 Completed [place] 00:00:[facility] DTaP, unspecified DTaP, unspecified 1997 Completed [place] formulation - ML formulation - ML 00:00:00 Me dical Group IPV - ML IPV - ML 1997 Completed [facility] 00:00:[facility] DTaP, unspecified DTaP, unspecified 1997 Completed [place] formulation - ML formulation - ML 00:00:00 Me dical Group IPV - ML IPV - ML 1997 Completed [facility] 00:00:00 [facility] DTaP Diphtheria, 1997 Completed [...] Hea lth 00:00:00 DTaP Diphtheria, 1997 Completed [facility] Tetanus, Acellular, 00:00:00 Pertussis Poliovirus [...] 00:00:00 DTaP, unspecified DTaP, unspecified 1997 Completed [place] [facility] - ML formulation - ML 00:00:00 Me dical Group Hep B, adolescent or Hep B, adolescent 1997 Completed [facility] - ML or pediatric - ML 00:00:00 Med ical Group IPV - ML IPV - ML 1997 Completed [facility] 00:00:[facility] DTaP, unspecified DTaP, unspecified 1997 Completed [place] formulation - ML formulation - ML 00:00:00 Me dical Group Hep B, adolescent or Hep B, adolescent 1997 Completed [facility] - ML or pediatric - ML 00:00:00 Med ical Group IPV - ML IPV - ML 1997 Completed [facility] 00:[facility] DTaP, unspecified DTaP, unspecified 1997 Completed [place] formulation - ML formulation - ML 00:00:00 Me dical Group Hep B, adolescent or Hep B, adolescent 1997 Completed [facility] - ML or pediatric - ML 00:00:00 Med ical Group IPV - ML IPV - ML 1997 Completed [facility] 00:00:[facility] DTaP, unspecified DTaP, unspecified 1997 Completed [place] formulation - ML formulation - ML 00:00:00 Me dical Group Hep B, adolescent or Hep B, adolescent 1997 Completed [facility] - ML or pediatric - ML 00:00:00 Med ical Group IPV - ML IPV - ML 1997 Completed [facility] 00:00:[facility] DTaP, unspecified DTaP, unspecified 1997 Completed [place] formulation - ML formulation - ML 00:00:00 Nc dical Group Hep B, adolescent or Hep B, adolescent 1997 Completed [place] [facility] - ML or pediatric - ML 00:00:00 Med ical Group IPV - ML IPV - ML 1997 Completed [facility] 00:00:[facility] DTaP, unspecified DTaP, unspecified 1997 Completed [place] formulation - ML formulation - ML 00:00:00 Nc dical Group Hep B, adolescent or Hep B, adolescent 1997 Completed [facility] - ML or pediatric - ML 00:00:00 Med ical Group IPV - ML IPV - ML 1997 Completed [facility] 00:00:[facility] DTaP, unspecified DTaP, unspecified 1997 Completed [place] formulation - ML formulation - ML 00:00:00 Nc dical Group Hep B, adolescent or Hep B, adolescent 1997 Completed [facility] - ML or pediatric - ML 00:00:00 Med ical Group IPV - ML IPV - ML 1997 Completed [facility] 00:00:[facility] DTaP, unspecified DTaP, unspecified 1997 Completed [place] formulation - ML formulation - ML 00:00:00 Nc dical Group Hep B, adolescent or Hep B, adolescent 1997 Completed [facility] - ML or pediatric - ML 00:00:00 Med ical Group IPV - ML IPV - ML 1997 Completed [facility] 00:00:[facility] DTaP, unspecified DTaP, unspecified 1997 Completed [place] formulation - ML formulation - ML 00:00:00 Nc dical Group Hep B, adolescent or Hep B, adolescent 1997 Completed [facility] [facility] - ML or pediatric - ML 00:00:00 Med ical Group IPV - ML IPV - ML 1997 Completed [facility] 00:00:[facility] DTaP, unspecified DTaP, unspecified 1997 Completed [place] formulation - ML formulation - ML 00:00:00 Me dical Group Hep B, adolescent or Hep B, adolescent 1997 Completed [facility] [facility] - ML or pediatric - ML 00:00:00 Med ical Group IPV - ML IPV - ML 1997 Completed [facility] 00:00:[facility] DTaP, unspecified DTaP, unspecified 1997 Completed [place] formulation - ML formulation - ML 00:00:00 Me dical Group Hep B, adolescent or Hep B, adolescent 1997 Completed [facility] [facility] - ML or pediatric - ML 00:00:00 Med ical Group IPV - ML IPV - ML 1997 Completed [facility] 00:00:[facility] DTaP Diphtheria, 1997 Completed [facility] Tetanus, Acellular, 00:00:00 Pertussis Pol[facility]ovirus [facility]pv [facility] Com[facility] 00:00:00 DTaP Diphtheria, 1997 Completed [facility] Tetanus, Acellular, 00:00:00 Pertussis Poliovirus Ipv 1997 Completed [facility] 00:[facility] Hepatitis B Vaccine 1997 Completed Exclusively.in 00:00:00 DTaP Diphtheria, 1997 Completed [facility] Tetanus, Acellular, 00:00:00 Pertussis Poliovirus Ipv 1997 Completed [facility] 00:00:00 Hepatitis B Vaccine 1997 Completed Exclusively.in 00:00:00 DTaP Diphtheria, 1997 Completed [facility] Tetanus, Acellular, 00:00:00 Pertussis Poliovirus Ipv 1997 Completed [facility] 00:00:00 Hepatitis B Vaccine 1997 Completed Exclusively.in 00:00:00 DTaP Diphtheria, 1997 Completed [facility] Tetanus, Acellular, 00:00:00 Pertussis Poliovirus Ipv 1997 Completed [facility] 00[facility]00:00 Hepatitis B Vaccine 1997 Completed [facility] 00:00:00 DTaP Diphtheria, 1997 Completed [...] lth 00:00:00 Hepatitis B Vaccine 1997 Completed [facility] 00:00:00 DTaP Diphtheria, 1997 Completed [facility] Tetanus, Acellular, 00:00:00 Pertussis Poliovirus Ipv 1997 Completed [facility] 00:00:00 Hepatitis B Vaccine 1997 Completed [facility] 00:00:00 DTaP Diphtheria, 1997 Completed [facility] Tetanus, Acellular, 00:00:00 Pertussis Poliovirus Ipv 1997 Completed [facility] 00:00:00 Hepatitis B Vaccine 1997 Completed [facility] 00:00:00 Poliovirus Ipv 1997 Completed [facility] 00:00:00 DTaP Diphtheria, 1997 Completed [facility] Tetanus, Acellular, 00:00:00 Pertussis Poliovirus Ipv 1997 Completed [facility] 00:00:00 Hepatitis B Vaccine 1997 Completed [facility] 00:00:00 DTaP Diphtheria, 1997 Completed [facility] Tetanus, Acellular, 00:00:00 Pertussis Poliovirus Ipv 1997 Completed [facility] 00[facility]00:00 Hepatitis B Vaccine 1997 Completed [facility] 00:00:00 Hepatitis B Vaccine 1997 Completed [facility] 00:00:00 DTaP Diphtheria, 1997 Completed [facility] Tetanus, Acellular, 00:00:00 Pertussis Poliovirus Ipv 1997 [facility] 1997 Completed Exclusively.in 00:00:00 DTaP Diphtheria, 1997 Completed [facility] Tetanus, Acellular, 00:00:00 Pertussis Poliovirus Ipv 1997 [facility] Vaccine 1997 Completed Exclusively.in 00:00:00 Hep B, adolescent or Hep B, adolescent 1997 Completed [facility] - ML or pediatric - ML 00:00:00 Med ical Group Hep B, adolescent or Hep B, adolescent 1997 Completed [facility] - ML or pediatric - ML 00:00:00 Med ical Group Hep B, adolescent or Hep B, adolescent 1997 Completed [facility] - ML or pediatric - ML 00:00:00 Med ical Group Hep B, adolescent or Hep B, adolescent 1997 Completed [facility] - ML or pediatric - ML 00:00:00 Med ical Group Hep B, adolescent or Hep B, adolescent 1997 Completed [facility] - ML or pediatric - ML 00:00:00 Med ical Group Hep B, adolescent or Hep B, adolescent 1997 Completed [facility] - ML or pediatric - ML 00:00:00 Med ical Group Hep B, adolescent or Hep B, adolescent 1997 Completed [facility] - ML or pediatric - ML 00:00:00 Med ical Group Hep B, adolescent or Hep B, adolescent 1997 Completed [facility] - ML or pediatric - ML 00:00:00 Med ical Group Hep B, adolescent or Hep B, adolescent 1997 Completed [facility] - ML or pediatric - ML 00:00:00 Med ical Group Hep B, adolescent or Hep B, adolescent 1997 Completed [facility] - ML or pediatric - ML 00:00:00 Med ical Group Hep B, adolescent or Hep B, adolescent 1997 Completed [facility] [facility] - ML or pediatric - ML 00:00:00 Med ical Group Hepatitis B Vaccine 1997 Completed Exclusively.in 00:00:00 Hepatitis B Vaccine 1997 Completed [facility] [...] Vaccine 1997 Com[facility] 00:[facility] Hep B, adolescent or Hep B, adolescent 1997 Completed [facility] - ML or pediatric - ML 00:00:00 Med ical Group Hep B, adolescent or Hep B, adolescent 1997 Completed [facility] - ML or pediatric - ML 00:00:00 Med ical Group Hep B, adolescent or Hep B, adolescent 1997 Completed [facility] - ML or pediatric - ML 00:00:00 Med ical Group Hep B, adolescent or Hep B, adolescent 1997 Completed [facility] - ML or pediatric - ML 00:00:00 Med ical Group Hep B, adolescent or Hep B, adolescent 1997 Completed [facility] - ML or pediatric - ML 00:00:00 Med ical Group Hep B, adolescent or Hep B, adolescent 1997 Completed [facility] - ML or pediatric - ML 00:00:00 Med ical Group Hep B, adolescent or Hep B, adolescent 1997 Completed [facility] - ML or pediatric - ML 00:00:00 Med ical Group Hep B, adolescent or Hep B, adolescent 1997 Completed [facility] - ML or pediatric - ML 00:00:00 Med ical Group Hep B, adolescent or Hep B, adolescent 1997 Completed [facility] - ML or pediatric - ML 00:00:00 Med ical Group Hep B, adolescent or Hep B, adolescent 1997 Completed [facility] - ML or pediatric - ML 00:00:00 Med ical Group Hep B, adolescent or Hep B, adolescent 1997 Completed [facility] - ML or pediatric - ML 00:00:00 Med ical Group DTaP-Hib - ML DTaP-Hib - ML Unknown Completed [facility] OPV - ML OPV - ML Unknown Completed [facility] varicella - ML varicella - ML Unknown Completed [facility] MMR - ML MMR - ML Unknown Completed [facility] DTaP, unspecified DTaP, unspecified Unknown Completed [place] formulation - ML formulation - ML Me dical Group DTaP, unspecified DTaP, unspecified Unknown Completed [place] formulation - ML formulation - ML Me dical Group IPV - ML IPV - ML Unknown Completed [facility] DTaP, unspecified DTaP, unspecified Unknown Completed [place] formulation - ML formulation - ML Me dical Group Hep B, adolescent or Hep B, adolescent Unknown Completed [facility] [facility] - ML or pediatric - ML Med ical Group IPV - ML IPV - ML Unknown Completed [facility] Hep B, adolescent or Hep B, adolescent Unknown Completed [facility] - ML or pediatric - ML Med ical Group Hep B, adolescent or Hep B, adolescent Unknown Completed [facility] - ML or pediatric - ML Med ical Group COVID-19, mRNA, COVID-19, mRNA, Unknown Completed [facility] LNP-S, PF, 100 LNP-S, PF, 100 Med[facility] l Group mcg/0.5 mL dose mcg/0.5 mL dose (Moderna) - ML (Moderna) - ML HPV, quadrivalent - HPV, quadrivalent - Unknown Completed [facility] influenza, seasonal, influenza, Unknown Completed [facility] injectable, seasonal, Medical Group preservative free - injectable, ML preservative free - ML meningococcal MCV4P meningococcal MCV4P Unknown Completed [place] - ML - [facility] influenza, seasonal, influenza, Unknown Completed [facility] injectable, seasonal, [facility] Group preservative free - injectable, ML preservative free - ML meningococcal MCV4P meningococcal MCV4P Unknown Completed [place] - ML - ML [facility] varicella - ML varicella - ML Unknown Completed [facility] Tdap - ML Tdap - ML Unknown Completed [facility] DTaP, unspecified DTaP, unspecified Unknown Completed [place] formulation - ML formulation - ML Me dical Group MMR - ML MMR - ML Unknown Completed [facility] IPV - ML IPV - ML Unknown Completed [facility] Hep B, adolescent or Hep B, adolescent Unknown Completed [facility] - ML or pediatric - ML Med ical Group DTaP-Hib - ML DTaP-Hib - ML Unknown Completed [facility] OPV - ML OPV - ML Unknown Completed [facility] varicella - ML varicella - ML Unknown Completed [facility] MMR - ML MMR - ML Unknown Completed [facility] DTaP, unspecified DTaP, unspecified Unknown Completed [place] formulation - ML formulation - ML Me dical Group DTaP, unspecified DTaP, unspecified Unknown Completed [place] formulation - ML formulation - ML Me dical Group IPV - ML IPV - ML Unknown Completed [facility] DTaP, unspecified DTaP, unspecified Unknown Completed [place] formulation - ML formulation - ML Me dical Group Hep B, adolescent or Hep B, adolescent Unknown Completed [facility] - ML or pediatric - ML Med ical Group IPV - ML IPV - ML Unknown Completed [facility] Hep B, adolescent or Hep B, adolescent Unknown Completed [facility] - ML or pediatric - ML Med ical Group Hep B, adolescent or Hep B, adolescent Unknown Completed [facility] - ML or pediatric - ML Med ical Group COVID-19, mRNA, COVID-19, mRNA, Unknown Completed [facility] LNP-S, PF, 100 LNP-S, PF, 100 Medica l Group mcg/0.5 mL dose mcg/0.5 mL dose (Moderna) - ML (Moderna) - ML HPV, quadrivalent - HPV, quadrivalent - Unknown Completed [facility] influenza, seasonal, influenza, Unknown Completed [facility] injectable, seasonal, [facility] Group preservative free - injectable, ML preservative free - ML meningococcal MCV4P meningococcal MCV4P Unknown Completed [place] - ML - ML [facility] influenza, seasonal, influenza, Unknown Completed [facility] injectable, seasonal, [facility] Group preservative free - injectable, ML preservative free - ML meningococcal MCV4P meningococcal MCV4P Unknown Completed [place] - ML - ML [facility] varicella - ML varicella - ML Unknown Completed [facility] Tdap - ML Tdap - ML Unknown Completed [facility] DTaP, unspecified DTaP, unspecified Unknown Completed [place] formulation - ML formulation - ML Me dical Group MMR - ML MMR - ML Unknown Completed [facility] IPV - ML IPV - ML Unknown Completed [facility] Hep B, adolescent or Hep B, adolescent Unknown Completed [facility] - ML or pediatric - ML Med ical Group DTaP Diphtheria, Unknown Completed [facility] Tetanus, Acellular, Pertussis DTaP Diphtheria, Unknown Completed [facility] Tetanus, Acellular, Pertussis DTaP Diphtheria, Unknown Completed [facility] Tetanus, Acellular, Pertussis DTaP Diphtheria, Unknown Completed [facility] Tetanus, Acellular, Pertussis Hepatitis B Vaccine Unknown Completed [facility] Hib Haemophilus Unknown Completed [facility] Influenzae Type B Hib Haemophilus Unknown Completed [facility] Influenzae Type B Poliovirus Ipv Unknown Completed [facility] Poliovirus Ipv Unknown Completed [facility] Poliovirus Ipv Unknown Completed [facility] Poliovirus Ipv Unknown Completed [facility] Tdap Tetanus, Unknown Completed [facility] diphtheria, acellular pertussis Vaccine Hepatitis B Vaccine Unknown Completed [facility] Hepatitis B Vaccine Unknown Completed [facility] Varicella Vaccine Unknown Completed [facility] Varicella Vaccine Unknown Completed [facility] MCV4 Meningococcal Unknown Completed [facility] Conjugate (Menactra) Influenza Vaccine Unknown Completed [facility] MCV4 Meningococcal Unknown Completed [facility] Conjugate (Menactra) Human Papillomavirus Unknown Completed [facility] Vaccine Influenza Vaccine Unknown Completed [facility] Vital Signs Vital Name Observation Time Observation Value Comments Source Body Weight 2023-01-08 00:00:00 1472 [facility] BMI (Body Mass 2023-01-08 00:00:00 18 kg/m2 [facility] Height 2023-01-08 00:00:00 60 [in_i] [facility] BP Diastolic 2022-12-27 00:00:00 75 mm[Hg] [facility] BMI (Body Mass 2022-12-27 00:00:00 18 kg/m2 [facility] BP Systolic 2022-12-27 00:00:00 110 mm[Hg] [facility] Body Weight 2022-12-27 00:00:00 1476 [oz_av] [facility] Height 2022-12-27 00:00:00 60 [in_i] [facility] Body Weight 2022-12-24 00:00:00 1520 [oz_av] [facility] BMI (Body Mass 2022-12-24 00:00:00 18.6 kg/m2 [facility] Height 2022-12-24 00:00:00 60 [in_i] [facility] BMI (Body Mass 2022-11-27 00:00:00 18.6 kg/m2 [facility] Height 2022-11-27 00:00:00 60 [in_i] [facility] Body Weight 2022-11-27 00:00:00 1520 [oz_av] [facility] BP Diastolic 2022-10-08 00:00:00 79 mm[Hg] [facility] Height 2022-10-08 00:00:00 60 [in_i] [facility] BMI (Body Mass 2022-10-08 00:00:00 17.2 kg/m2 [facility] BP Systolic 2022-10-08 00:00:00 114 mm[Hg] [facility] Body Weight 2022-10-08 00:00:00 1408 [oz_av] [facility] Height 2022-08-27 00:00:00 60 [in_i] [facility] BMI (Body Mass 2022-08-27 00:00:00 16.6 kg/m2 [facility] Body Weight 2022-08-27 00:00:00 1360 [oz_av] [facility] Height 2022-08-09 00:00:00 60 [in_i] [facility] BP Diastolic 2022-08-09 00:00:00 82 mm[Hg] [facility] BMI (Body Mass 2022-08-09 00:00:00 16.6 kg/m2 [facility]) [facility] BP Systolic 2022-08-09 00:00:00 170 mm[Hg] [facility] Body Weight 2022-08-09 00:00:00 85 [lb_av] [facility] Height 2022-07-30 00:00:00 60 [in_i] [facility] BMI (Body Mass 2022-07-30 00:00:00 16.4 kg/m2 [facility]) Group Body Weight 2022-07-30 00:00:00 1344 [oz_av] [facility] HEIGHT 2022-07-27 22:03:00 152.4 cm WEIGHT 2022-07-27 22:03:00 39.009 kg HEIGHT 2022-07-27 22:03:00 152.4 cm WEIGHT 2022-07-27 22:03:00 39.009 kg HEIGHT 2022-07-27 22:03:00 152.4 cm WEIGHT 2022-07-27 22:03:00 39.009 kg Systolic blood 2022-07-13 21:02:00 111 mm[Hg] [facility] of pressure [facility] Diastolic blood 2022-07-13 21:02:00 74 mm[Hg] Unive rsity of pressure [facility] Heart rate 2022-07-13 21:02:00 68 /min [facility] Respiratory rate 2022-07-13 21:02:00 19 /[facility] in 2022-07-13 21:02:00 100 /min [facility] blood by [facility] Pulse oximetry Branch Body temperature 2022-07-13 13:24:00 37.22 [facility] Body height 2022-07-13 13:24:00 152.4 cm [facility] Body weight 2022-07-13 13:24:00 38.102 kg [facility] BMI 2022-07-13 13:24:00 16.41 kg/m2 [facility] BP Diastolic 2022-07-06 00:00:00 76 mm[Hg] [facility] Height 2022-07-06 00:00:00 60 [in_i] [facility] BMI (Body Mass 2022-07-06 00:00:00 17.5 [facility] BP Systolic 2022-07-06 00:00:00 123 mm[Hg] [facility] Body Weight 2022-07-06 00:00:00 89.5 [lb_av] [facility] Height 2022-07-05 00:00:00 60 [in_i] [facility] BP Diastolic 2022-06-25 00:00:00 78 mm[Hg] [facility] Height 2022-06-25 00:00:00 60 [in_i] [facility] BMI (Body Mass 2022-06-25 00:00:00 17.5 [facility]/m2 [facility] BP Systolic 2022-06-25 00:00:00 121 mm[Hg] [facility] Body Weight 2022-06-25 00:00:00 89.5 [lb_av] [facility] BP Diastolic 2022-06-07 00:00:00 73 mm[Hg] [facility] Height 2022-06-07 00:00:00 60 [in_i] [facility] BMI (Body Mass 2022-06-07 00:00:00 17 [facility]2 [facility] BP Systolic 2022-06-07 00:00:00 109 mm[Hg] [facility] Body Weight 2022-06-07 00:00:00 87 [lb_av] [facility] BP Diastolic 2022-06-04 00:00:00 84 mm[Hg] [facility] Height 2022-06-04 00:00:00 60 [in_i] [facility] BMI (Body Mass 2022-06-04 00:00:00 17.5 kg/m2 [facility] Medical Index) Group BP Systolic 2022-06-04 00:00:00 119 mm[Hg] [facility] Body Weight 2022-06-04 00:00:00 1432 [oz_av] [facility] BP Diastolic 2022-05-18 00:00:00 65 mm[Hg] [facility] Height 2022-05-18 00:00:00 60 [in_i] [facility] BMI (Body Mass 2022-05-18 00:00:00 17.4 kg/m2 [facility] Medical Index) Group BP Systolic 2022-05-18 00:00:00 95 mm[Hg] [facility] Body Weight 2022-05-18 00:00:00 1429 [oz_av] [facility] Height 2022-05-15 00:00:00 60 [in_i] [facility] BMI (Body Mass 2022-05-15 00:00:00 17.4 kg/m2 [facility] Medical Index) Group Body Weight 2022-05-15 00:00:00 1429 [oz_av] [facility] BP Diastolic 2022-02-20 00:00:00 62 mm[Hg] [facility] Height 2022-02-20 00:00:00 60 [in_i] [facility] BMI (Body Mass 2022-02-20 00:00:00 18.6 kg/m2 [facility] Medical Index) Group BP Systolic 2022-02-20 00:00:00 101 mm[Hg] [facility] Body Weight 2022-02-20 00:00:00 1520 [oz_av] [facility] BP Diastolic 2022-01-17 00:00:00 73 mm[Hg] [facility] Height 2022-01-17 00:00:00 60 [in_i] [facility] BMI (Body Mass 2022-01-17 00:00:00 17.6 kg/m2 [facility] BP Systolic 2022-01-17 00:00:00 114 mm[Hg] [facility] Body Weight 2022-01-17 00:00:00 1440 [oz_av] [facility] Systolic blood 2022-01-05 21:03:00 123 mm[Hg] Univer sity of pressure [facility] Diastolic blood 2022-01-05 21:03:00 84 mm[Hg] Unive rsity of pressure [facility] Heart rate 2022-01-05 21:03:00 76 /min [facility] Body height 2022-01-05 21:03:00 152.4 cm [facility] Body weight 2022-01-05 21:03:00 40.824 kg [facility] BMI 2022-01-05 21:03:00 17.58 kg/m2 [facility] Oxygen saturation in 2022-01-05 21:03:00 100 /min [facility] Arterial blood by [facility] Pulse oximetry Branch BP Diastolic 2022-01-04 00:00:00 71 mm[Hg] [facility] Height 2022-01-04 00:00:00 60 [in_i] [facility] BMI (Body Mass 2022-01-04 00:00:00 18.4 kg/m2 [facility] buying intern Medical Index) Group BP Systolic 2022-01-04 00:00:00 117 mm[Hg] [facility] Body Weight 2022-01-04 00:00:00 1504 [oz_av] [facility] BP Diastolic 2021-10-23 00:00:00 74 mm[Hg] [facility] Height 2021-10-23 00:00:00 60 [in_i] [facility] BMI (Body Mass 2021-10-23 00:00:00 17.4 kg/m2 [facility] BP Systolic 2021-10-23 00:00:00 102 mm[Hg] [facility] Body Weight 2021-10-23 00:00:00 1428.8 [oz_av] [facility] BP Diastolic 2021-10-05 00:00:00 71 mm[Hg] [facility] Height 2021-10-05 00:00:00 60 [in_i] [facility] BMI (Body Mass 2021-10-05 00:00:00 16.9 kg/m2 [facility] BP Systolic 2021-10-05 00:00:00 103 mm[Hg] [facility] Body Weight 2021-10-05 00:00:00 1382.4 [oz_av] [facility] BP Diastolic 2021-09-14 00:00:00 79 mm[Hg] [facility] Height 2021-09-14 00:00:00 60 [in_i] [facility] BMI (Body Mass 2021-09-14 00:00:00 16.2 kg/m2 [facility] intern Medical Index) Group BP Systolic 2021-09-14 00:00:00 112 mm[Hg] [facility] Body Weight 2021-09-14 00:00:00 1324.8 [oz_av] [facility] BP Diastolic 2021-09-05 00:00:00 76 mm[Hg] [facility] Height 2021-09-05 00:00:00 60 [in_i] [facility] BMI (Body Mass 2021-09-05 00:00:00 17.4 kg/m2 [facility] BP Systolic 2021-09-05 00:00:00 114 mm[Hg] [facility] Body Weight 2021-09-05 00:00:00 89.1 [lb_av] [facility] BP Diastolic 2021-07-27 00:00:00 78 mm[Hg] [facility] Height 2021-07-27 00:00:00 60 [in_i] [facility] BMI (Body Mass 2021-07-27 00:00:00 17.7 kg/m2 [facility] Medical Index) Group BP Systolic 2021-07-27 00:00:00 114 mm[Hg] [facility] Body Weight 2021-07-27 00:00:00 1448 [oz_av] [facility] BP Diastolic 2021-07-25 00:00:00 82 mm[Hg] [facility] Height 2021-07-25 00:00:00 60 [in_i] [facility] BMI (Body Mass 2021-07-25 00:00:00 17.9 kg/m2 [facility] Medical Index) Group BP Systolic 2021-07-25 00:00:00 116 mm[Hg] [facility] Body Weight 2021-07-25 00:00:00 91.5 [lb_av] [facility] BP Diastolic 2021-07-24 00:00:00 76 mm[Hg] [facility] Height 2021-07-24 00:00:00 60 [in_i] [facility] BMI (Body Mass 2021-07-24 00:00:00 17.8 kg/m2 [facility] Medical Index) Group BP Systolic 2021-07-24 00:00:00 112 mm[Hg] [facility] Body Weight 2021-07-24 00:00:00 1457.6 [oz_av] [facility] BP Diastolic 2021-07-12 00:00:00 76 mm[Hg] [facility] Height 2021-07-12 00:00:00 60 [in_i] [facility] BMI (Body Mass 2021-07-12 00:00:00 19.2 kg/m2 [facility] Medical Index) Group BP Systolic 2021-07-12 00:00:00 110 mm[Hg] [facility] Body Weight 2021-07-12 00:00:00 1576 [oz_av] [facility] BP Diastolic 2021-06-21 00:00:00 80 mm[Hg] [facility] Height 2021-06-21 00:00:00 60 [in_i] [facility] BMI (Body Mass 2021-06-21 00:00:00 18.4 kg/m2 [facility] Medical Index) Group BP Systolic 2021-06-21 00:00:00 108 mm[Hg] [facility] Body Weight 2021-06-21 00:00:00 1504 [oz_av] [facility] BP Diastolic 2021-06-02 00:00:00 73 mm[Hg] [facility] Height 2021-06-02 00:00:00 60 [in_i] [facility] BMI (Body Mass 2021-06-02 00:00:00 20.3 kg/m2 [facility] Medical Index) Group BP Systolic 2021-06-02 00:00:00 122 mm[Hg] [facility] Body Weight 2021-06-02 00:00:00 1664 [oz_av] [facility] BP Diastolic 2021-05-22 00:00:00 73 mm[Hg] [facility] Height 2021-05-22 00:00:00 60 [in_i] [facility] BMI (Body Mass 2021-05-22 00:00:00 19.5 kg/m2 [facility] Medical Index) Group BP Systolic 2021-05-22 00:00:00 112 mm[Hg] [facility] Body Weight 2021-05-22 00:00:00 1598.4 [oz_av] [facility] BP Diastolic 2021-05-09 00:00:00 75 mm[Hg] [facility] Height 2021-05-09 00:00:00 60 [in_i] [facility] BMI (Body Mass 2021-05-09 00:00:00 20 kg/m2 [facility] Medical Index) Group BP Systolic 2021-05-09 00:00:00 122 mm[Hg] [facility] Body Weight 2021-05-09 00:00:00 1640 [oz_av] [facility] BP Diastolic 2021-03-23 00:00:00 69 mm[Hg] [facility] Height 2021-03-23 00:00:00 60 [in_i] [facility] BMI (Body Mass 2021-03-23 00:00:00 19.9 kg/m2 [facility] BP Systolic 2021-03-23 00:00:00 103 mm[Hg] [facility] Body Weight 2021-03-23 00:00:00 1627.2 [oz_av] [facility] BP Diastolic 2019-10-30 00:00:00 73 mm[Hg] [facility] Height 2019-10-30 00:00:00 61 [in_i] [facility] BMI (Body Mass 2019-10-30 00:00:00 17.4 kg/m2 [facility] BP Systolic 2019-10-30 00:00:00 105 mm[Hg] [facility] Body Weight 2019-10-30 00:00:00 91.9 [lb_av] [facility] BP Diastolic 2019-07-01 00:00:00 82 mm[Hg] [facility] Height 2019-07-01 00:00:00 61 [in_i] [facility] BMI (Body Mass 2019-07-01 00:00:00 17 kg/m2 [facility] BP Systolic 2019-07-01 00:00:00 119 mm[Hg] [facility] Body Weight 2019-07-01 00:00:00 90 [lb_av] [facility] BP Diastolic 2019-06-10 00:00:00 73 mm[Hg] [facility] Height 2019-06-10 00:00:00 61 [in_i] [facility] BMI (Body Mass 2019-06-10 00:00:00 18.9 kg/m2 [facility] BP Systolic 2019-06-10 00:00:00 111 mm[Hg] [facility] Body Weight 2019-06-10 00:00:00 100 [lb_av] [facility] BP Diastolic 2019-05-20 00:00:00 48 mm[Hg] [facility] Height 2019-05-20 00:00:00 61 [in_i] [facility] BMI (Body Mass 2019-05-20 00:00:00 18.9 kg/m2 [facility] BP Systolic 2019-05-20 00:00:00 117 mm[Hg] [facility] Body Weight 2019-05-20 00:00:00 100.1 [lb_av] [facility] BP Diastolic 2019-04-28 00:00:00 73 mm[Hg] [facility] Height 2019-04-28 00:00:00 61 [in_i] [facility] BMI (Body Mass 2019-04-28 00:00:00 19.9 kg/m2 [facility] BP Systolic 2019-04-28 00:00:00 140 mm[Hg] [facility] Body Weight 2019-04-28 00:00:00 105.4 [lb_av] [facility] BP Diastolic 2019-04-24 00:00:00 57 mm[Hg] [facility] Height 2019-04-24 00:00:00 61 [in_i] [facility] BMI (Body Mass 2019-04-24 00:00:00 20 kg/m2 [facility] BP Systolic 2019-04-24 00:00:00 120 mm[Hg] [facility] Body Weight 2019-04-24 00:00:00 105.7 [lb_av] [facility] BP Diastolic 2019-04-23 00:00:00 70 mm[Hg] [facility] Height 2019-04-23 00:00:00 61 [in_i] [facility] BMI (Body Mass 2019-04-23 00:00:00 20.1 kg/m2 [facility] BP Systolic 2019-04-23 00:00:00 110 mm[Hg] [facility] BP Diastolic 2019-04-16 00:00:00 66 mm[Hg] [facility] Height 2019-04-16 00:00:00 61 [in_i] [facility] BMI (Body Mass 2019-04-16 00:00:00 19.8 kg/m2 [facility] BP Systolic 2019-04-16 00:00:00 102 mm[Hg] [facility] Body Weight 2019-04-16 00:00:00 104.6 [lb_av] [facility] BP Diastolic 2019-04-02 00:00:00 70 mm[Hg] [facility] Height 2019-04-02 00:00:00 61 [in_i] [facility] BMI (Body Mass 2019-04-02 00:00:00 19.9 [facility]m2 [facility] BP Systolic 2019-04-02 00:00:00 122 mm[Hg] [facility] Body Weight 2019-04-02 00:00:00 105.5 [lb_av] [facility] BP Diastolic 2019-03-30 00:00:00 74 mm[Hg] [facility] Height 2019-03-30 00:00:00 61 [in_i] [facility] BMI (Body Mass 2019-03-30 00:00:00 19.8 kg/m2 [facility] BP Systolic 2019-03-30 00:00:00 118 mm[Hg] [facility] Body Weight 2019-03-30 00:00:00 105 [lb_av] [facility] BP Diastolic 2019-03-27 00:00:00 76 mm[Hg] [facility] Height 2019-03-27 00:00:00 61 [in_i] [facility] BMI (Body Mass 2019-03-27 00:00:00 19.9 kg/m2 [facility] Medical Index) Group BP Systolic 2019-03-27 00:00:00 121 mm[Hg] [facility] Body Weight 2019-03-27 00:00:00 105.3 [lb_av] [facility] BP Diastolic 2019-03-09 00:00:00 72 mm[Hg] [facility] Height 2019-03-09 00:00:00 61 [in_i] [facility] BMI (Body Mass 2019-03-09 00:00:00 19.6 kg/m2 [facility] BP Systolic 2019-03-09 00:00:00 116 mm[Hg] [facility] Body Weight 2019-03-09 00:00:00 103.6 [lb_av] [facility] Height 2019-03-04 00:00:00 61 [in_i] [facility] Systolic blood 2022-07-28 16:29:00 100 mm[Hg] [facility] Diastolic blood 2022-07-28 16:29:00 64 mm[Hg] [facility] Heart rate 2022-07-28 16:29:00 90 /min [facility] Body temperature 2022-07-28 16:29:00 36.44 Yesenia [facility] Respiratory rate 2022-07-28 16:29:00 18 /min [facility] Oxygen saturation in 2022-07-28 16:29:00 100 /min [facility] Arterial blood by Medical Ce nter Pulse oximetry Body height 2022-07-27 22:03:00 152.4 cm [facility] Body weight 2022-07-27 22:03:00 39.009 kg [facility] BMI 2022-07-27 22:03:00 16.80 kg/m2 [facility] Procedures Procedure Date / Time Performing Source Performed Clinician Mrcp 2022-12-25 [facility]00 Group MR, cholangiopancreatogram, w/ 2022-08-09 [facility] contrast 00:00:00 Group PHYSICIAN ORDERS 2022-08-01 [facility] 05:01:00 Unassigned, No [place] [facility] MR ABDOMEN WITHOUT IV CONTRAST 2022-07-[address] [facility] MRCP 14:11:00 [facility] HEPATIC FUNCTION PANEL 2022-07-[address] [facility] 04:19:00 [facility] BASIC METABOLIC PANEL 2022-07-[address] [facility] 04:19:00 [facility] CBC W/PLT COUNT & AUTO 2022-07-28 Irena Epstein [facility] DIFFERENTIAL 04:19:00 [facility] CBC W/PLT COUNT & AUTO 2022-07-[address] [facility] DIFFERENTIAL 04:19:00 [facility] POCT TEST 2022-07-13 Brady Brantley Cameron o f 17:54:00 [facility] LIPASE 2022-07-13 Brady Brantley Cameron of 17:51:00 [facility] COMP. METABOLIC PANEL (67911) 2022-07-13 Brady Brantley Un iversity of 17:51:00 [facility] CBC WITH DIFF 2022-07-13 Brady Brantley Cameron of 17:51:00 [facility] URINALYSIS 2022-07-13 Brady Brantley [facility] 14:21:00 [facility] NOTICE OF PRIVACY PRACTICES 2022-07-13 Doctor Hooker ersity of 13:06:30 Unassigned, No [facility] CONSENT/REFUSAL FOR DIAGNOSIS AND 2022-07-13 Doctor Cameron of TREATMENT 13:05:28 Unassigned, No [facility] Cholecystectomy 2022-06-29 [place] 00:00:00 [facility] Egd 2022-06-25 [facility] 00:[facility]:00 [facility] Colonoscopy 2022-06-25 [facility] 00:[facility]:00 [facility] Esophagogastroduodenoscopy 2022-06-25 [facility] 00:[facility]:00 [facility] US, abdomen, complete 2022-06-07 [place] 00:00:00 [facility] EXTERNAL PROVIDER RECORDS 2022-05-03 Doctor Jeferson gallegos of 06:01:00 Unassigned, No [facility] Removal of Tonsils 2021-08-14 [facility] 00:00:00 Group XR, toe(s), 2 or more view 2021-05-22 [facility] 00:00:00 Group US(FBP)W/0 NON STRESS TEST 2019-04-28 [facility] 00:00:00 Group US(FBP)W/0 NON STRESS TEST 2019-04-23 [facility] 00:00:00 Group US, obstetric, limited 2019-04-16 [facility] 00:00:00 Group US(FBP)W/0 NON STRESS TEST 2019-04-16 [facility] 00:00:00 Group US(FBP)W/0 NON STRESS TEST 2019-04-02 [facility] 00:00:00 Group non-stress test 2019-04-02 [facility] 00:00:00 Group US(FBP)W/0 NON STRESS TEST 2019-03-30 [facility] 00:00:00 Group non-stress test 2019-03-30 [facility] 00:00:00 Group US, obstetric, limited 2019-03-27 [facility] 00:00:00 Group US(FBP)W/0 NON STRESS TEST 2019-03-27 [facility] 00:00:00 Group ULTRASOUND, UTERUS REAL 2019-03-04 [facility] TIME WITH IMAGE DOC, AND 00:00:00 G roup MATERNAL EVAL PLUS DETAILED ANATOMIC EXAMINATION, TRANSABDOMINAL APPROACH; SINGLE OR FIRST GESTATION Tubal Ligation [facility] Group Tonsillectomy [place] [facility] Ligation of Fallopian Tube [facility] Plan of Care Planned Activity Planned Date Details Comments Source Future Scheduled 2023-01-13 [facility] 00:00:00 (>/= 19 yrs) [code = IMM Influenza Seasonal (>/= 19 yrs)] Future Scheduled 2023-01-13 [facility] Influenza Seasonal [facility] 00:00:00 (>/= 19 yrs) [code = IMM Influenza Seasonal (>/= 19 yrs)] Future Scheduled 2022-12-16 INFLUENZA VACCINE (#1) M ethodist Test 11:37:57 [code = INFLUENZA Hospital VACCINE (#1)] Future Scheduled 2022-12-16 COVID-19 VACCINE (#1) [facility] Test 11:37:57 [code = COVID-19 VACCINE Hos pital (#1)] Future Scheduled 2022-12-16 Screening for malignant [facility] 11:37:57 neoplasm of cervix Hospital (procedure) [code = 257569492] Future Scheduled 2022-12-14 IMM Influenza Seasonal [facility] Test [...] Ce nter Vaccine (#1)] Future Scheduled 2022-11-29 COVID-19 VACCINE (#1) [facility] 11:00:05 [code = COVID-19 VACCINE Hos pital (#1)] Future Scheduled 2022-11-29 Screening for malignant [facility] 11:00:05 neoplasm of cervix Hospital (procedure) [code = 774646822] Future Scheduled 2022-11-29 INFLUENZA VACCINE [code [facility] 11:00:05 = INFLUENZA VACCINE] Hospita l Diagnostic Test 2022-10-08 drug screen, urine [code [facility] Pending 00:00:00 = drug screen, urine] Group Future Scheduled 2022-10-04 COVID-19 VACCINE (#1) [facility] 12:40:33 [code = COVID-19 VACCINE Hos pital (#1)] Future Scheduled 2022-10-04 Screening for malignant [facility] 12:40:33 neoplasm of cervix Hospital (procedure) [code = 390305062] Future Scheduled 2022-10-04 INFLUENZA VACCINE [code [facility] 12:40:33 = INFLUENZA VACCINE] Hospita l Future Scheduled 2022-07-19 COVID-19 VACCINE (#1) [facility] 18:24:04 [code = COVID-19 VACCINE Hos pital (#1)] Future Scheduled 2022-07-19 Screening for Chlamydia [facility] 18:24:04 trachomatis (procedure) Hosp ital [code = 329065941] Future Scheduled 2022-07-19 Screening for malignant [facility] 18:24:04 neoplasm of cervix Hospital (procedure) [code = 753232427] Future Scheduled 2022-07-19 INFLUENZA VACCINE [code [facility] 18:24:04 = INFLUENZA VACCINE] Hospita l Future Scheduled 2022-06-25 COVID-19 VACCINE (#1) [facility] Test 10:56:52 [code = COVID-19 VACCINE Hos pital (#1)] Future Scheduled 2022-06-25 Screening for Chlamydia [facility] 10:56:52 trachomatis (procedure) Hosp ital [code = 732359927] Future Scheduled 2022-06-25 Screening for malignant [facility] 10:56:52 neoplasm of cervix Hospital (procedure) [code = 989396193] Future Scheduled 2022-06-25 INFLUENZA VACCINE [code [facility] 10:56:52 = INFLUENZA VACCINE] Hospita l Future Scheduled 2022-06-25 COVID-19 VACCINE (#1) [facility] Test 10:56:52 [code = COVID-19 VACCINE Hos pital (#1)] Future Scheduled 2022-06-25 Screening for Chlamydia [facility] 10:56:52 trachomatis (procedure) Hosp ital [code = 552408256] Future Scheduled 2022-06-25 Screening for malignant [facility] 10:56:52 neoplasm of cervix Hospital (procedure) [code = 021525564] Future Scheduled 2022-06-25 INFLUENZA VACCINE [code [facility] 10:56:52 = [facility]-07 C reactive protein, QN, [facility] 00:00:00 serum or plasma [code = [facility] C reactive protein, QN, Outr each Program serum or plasma] Diagnostic Test 2022-06-07 vitamin D, 25-hydroxy, [facility] Pending 00:00:00 total, serum [code = [facility] vitamin D, 25-hydroxy, Outre [facility] Program total, serum] Diagnostic Test 2022-06-07 vitamin B12 + folate, [facility] 00:00:00 serum or blood [code = [facility] vitamin B12 + folate, Outrea Program serum or blood] Diagnostic Test 2022-06-07 ESR (erythrocyte [place] [facility] Pending 00:00:00 sedimentation rate), [facility] blood [code = ESR Outreach P rogram (erythrocyte sedimentation rate), blood] Diagnostic Test 2022-06-07 ANDREA (antinuclear [place] [facility] Pending 00:00:00 antibodies) screen, [facility] serum [code = ANDREA Outreach P rogram [...] Jamil luann Pending 00:00:00 [code = triglycerides, [facility] serum] Outreach Progra m Diagnostic Test 2022-06-07 TSH, ultra-sensitive, [place] 00:00:00 serum [code = TSH, [facility] ultra-sensitive, serum] Outr each Program Diagnostic [...] ical Center SCREENING (12+)] Future Scheduled 2022-04-05 Screening for malignant [facility] 16:41:03 neoplasm of cervix Hospital (procedure) [code = 606720814] Future Scheduled 2022-04-05 INFLUENZA VACCINE [code [facility] 16:41:03 = INFLUENZA VACCINE] Hospita l Future Scheduled 2022-04-05 COVID-19 VACCINE (#1) [facility] Test 16:41:03 [code = COVID-19 VACCINE Hos pital (#1)] Future Scheduled 2022-04-05 Screening for Chlamydia [facility] 16:41:03 trachomatis (procedure) Hosp ital [code = 655371672] Future Scheduled 2022-04-05 Screening for malignant [facility] 16:41:03 neoplasm of cervix Hospital (procedure) [code = 545234142] Future Scheduled 2022-04-05 INFLUENZA VACCINE [code [facility] 16:41:03 = INFLUENZA VACCINE] Hospita l Future Scheduled 2022-04-05 COVID-19 VACCINE (#1) [facility] 16:41:03 [code = COVID-19 VACCINE Hos pital (#1)] Future Scheduled 2022-04-05 Screening for Chlamydia [facility] 16:41:03 trachomatis (procedure) Hosp ital [code = 759499570] Future Scheduled 2022-04-05 Screening for malignant [facility] 16:41:03 neoplasm of cervix Hospital (procedure) [code = 214194017] Future Scheduled 2022-04-05 INFLUENZA VACCINE [code [facility] 16:41:03 = INFLUENZA VACCINE] Hospita l Future Scheduled 2022-04-05 COVID-19 VACCINE (#1) [facility] 16:41:03 [code = COVID-19 VACCINE Hos pital (#1)] Future Scheduled 2022-04-05 Screening for Chlamydia [facility] 16:41:03 trachomatis (procedure) Hosp ital [code = 356237414] Future Scheduled 2022-04-05 Screening for malignant [facility] 16:41:03 neoplasm of cervix Hospital (procedure) [code = 325111073] Future Scheduled 2022-04-05 INFLUENZA VACCINE [code [facility] 16:41:03 = INFLUENZA VACCINE] Hospita l Future Scheduled 2022-04-05 COVID-19 VACCINE (#1) [facility] 16:41:03 [code = COVID-19 VACCINE Hos pital (#1)] Future Scheduled 2022-04-05 Screening for Chlamydia [facility] 16:41:03 trachomatis (procedure) Hosp ital [code = 430676251] Future Scheduled 2022-04-05 Screening for malignant [facility] 16:41:03 neoplasm of cervix Hospital (procedure) [code = 783894761] Future Scheduled 2022-04-05 INFLUENZA VACCINE [code [facility] 16:41:03 = INFLUENZA VACCINE] Hospita l Future Scheduled 2022-04-05 COVID-19 VACCINE (#1) [facility] Test 16:41:03 [code = COVID-19 VACCINE Hos pital (#1)] Future Scheduled 2022-04-05 Screening for Chlamydia [facility] 16:41:03 trachomatis (procedure) Hosp ital [code = 546899469] Future Scheduled 2022-04-05 Screening for malignant [facility] 16:41:03 neoplasm of cervix Hospital (procedure) [code = 497472977] Future Scheduled 2022-04-05 INFLUENZA VACCINE [code [facility] 16:41:03 = INFLUENZA VACCINE] Hospita l Future Scheduled 2022-04-05 COVID-19 VACCINE (#1) [facility] Test 16:41:03 [code = COVID-19 VACCINE Hos pital (#1)] Future Scheduled 2022-04-05 Screening for Chlamydia [facility] 16:41:03 trachomatis (procedure) Hosp ital [code = 179651591] Future Scheduled 2022-02-15 HEPATITIS B VACCINES (1 [facility] 18:27:03 of 3 - 3-dose series) Hospit al [code = HEPATITIS B VACCINES (1 of 3 - 3-dose series)] Future Scheduled 2022-02-15 COVID-19 VACCINE (#1) [facility] Test 18:27:03 [code = COVID-19 VACCINE Hos pital (#1)] Future Scheduled 2022-02-15 Screening for Chlamydia [facility] 18:27:03 trachomatis (procedure) Hosp ital [code = 148117491] Future Scheduled 2022-02-15 Screening for malignant [facility] 18:27:03 neoplasm of cervix Hospital (procedure) [code = 147962754] Future Scheduled 2022-02-15 INFLUENZA VACCINE [code [facility] 18:27:03 = INFLUENZA VACCINE] Hospita l [...] Future Scheduled 2021-12-14 HEPATITIS B VACCINES (1 [facility] 04:05:20 of 3 - 3-dose series) Hospit al [code = HEPATITIS B VACCINES (1 of 3 - 3-dose series)] Future Scheduled 2021-12-14 COVID-19 VACCINE (#1) [facility] 04:05:20 [code = COVID-19 VACCINE Hos pital (#1)] Future Scheduled 2021-12-14 Screening for Chlamydia [facility] 04:05:20 trachomatis (procedure) Hosp ital [code = 728594491] Future Scheduled 2021-12-14 Screening for malignant [facility] 04:05:20 neoplasm of cervix Hospital (procedure) [code = 289553704] Future Scheduled 2021-12-14 INFLUENZA VACCINE [code [facility] 04:05:20 = INFLUENZA VACCINE] Hospita l [...] 00:00:00 - Td or Tdap) [code = Medica l Center DTAP/TDAP/TD VACCINES (3 - Td or Tdap)] Future Scheduled 2019-11-25 DTAP/TDAP/TD VACCINES ([address] [facility] Test 00:00:00 - Td or Tdap) [code = Medica l Center DTAP/TDAP/TD VACCINES (3 - Td or Tdap)] Future Scheduled 2019-11-25 DTAP/TDAP/TD VACCINES ([address] [facility] Test 00:00:00 - Td or Tdap) [code = Medica l Center DTAP/TDAP/TD VACCINES (3 - Td or Tdap)] Future Scheduled 2018 Screening for malignant [facility] Test 00:00:00 neoplasm of cervix Medical C enter (procedure) [code = 608195989] Future Scheduled 2018 Screening for malignant [facility] Test 00:00:00 neoplasm of cervix Medical C enter (procedure) [code = 095051436] Future Scheduled 2018 Screening for malignant [facility] Test 00:00:00 neoplasm of cervix (procedure) [code = 057817400] Future 2018 Screening for malignant [facility] Test 00:00:00 neoplasm of cervix (procedure) [code = 137116840] Future 2018 Screening for malignant [facility] Test 00:00:00 neoplasm of cervix Medical C enter (procedure) [code = 270839287] Future 2018 Screening for malignant [facility] Test 00:00:00 neoplasm of cervix (procedure) [code = 491120632] Future 2018 Screening for malignant [facility] Test 00:00:00 neoplasm of cervix (procedure) [code = 466836416] Future 2018 Screening for malignant [facility] Test 00:00:00 neoplasm of cervix (procedure) [code = 974628544] Future 2018 Screening for malignant [facility] Test 00:00:00 neoplasm of cervix (procedure) [code = 939993812] Future 2018 Screening for malignant [facility] Test 00:00:00 neoplasm of cervix (procedure) [code = 326581954] Future 2018 Screening for malignant [facility] Test 00:00:00 neoplasm of cervix (procedure) [code = 502083692] Future 2018 Screening for malignant [facility] Test 00:00:00 neoplasm of cervix (procedure) [code = 305829396] Future 2018 Screening for malignant [facility] Test 00:00:00 neoplasm of cervix (procedure) [code = 605857469] Future 2018 Screening for malignant [facility] Test 00:00:00 neoplasm of cervix (procedure) [code = 533134645] Future 2018 Screening for malignant [facility] Test 00:00:00 neoplasm of cervix (procedure) [code = 667033356] Future 2018 Screening for malignant [facility] Test 00:00:00 neoplasm of cervix (procedure) [code = 191426449] Future 2018 Screening for malignant [facility] Test 00:00:00 neoplasm of cervix (procedure) [code = 222055140] Future 2018 Screening for malignant [facility] Test 00:00:00 neoplasm of cervix (procedure) [code = 009307641] Future 2018 Screening for malignant [facility] Test 00:00:00 neoplasm of cervix (procedure) [code = 876355202] Future Scheduled 2015-08-27 HEPATITIS C SCREENING CH [...] screening Medical Cent er (procedure) [code = 502463002] Future Scheduled 2012 Human immunodeficiency [facility] 00[facility]00 virus screening [facility] (procedure) [code = 983590772] Future Scheduled [address] [facility] 00:00:00 virus screening Medical Cent er (procedure) [code = 654620334] Future Scheduled [address] [facility] Test 00:00:00 Counseling and Screening Med ical Center (12+) [code = Tobacco Cessation Counseling and Screening (12+)] Future Scheduled [address] [facility] Test 00:00:00 Counseling and Screening Med ical Center (12+) [code = Tobacco Cessation Counseling and Screening (12+)] Future Scheduled [address] [...] Fluoride Varnish] Future Scheduled Screening for malignant [facility] neoplasm of cervix Hospital (procedure) [code = 074677644] Future Scheduled INFLUENZA VACCINE [code [facility] = INFLUENZA VACCINE] Hospita l Future Scheduled CHLAMYDIA SCREENING Meth odist Test [code = CHLAMYDIA Hospital SCREENING] Future Scheduled COVID-19 VACCINE (1) Met hodist Test [code = COVID-19 VACCINE Hos pital (1)] Instructions [facility] Encounters Start End Encounter Admission Attending Care Care Encounter Source Date/Time Date/Time Type Type Clinicians Facility Department ID 2022-11-06 Inpatient LOUIS ACUÑABANNER [id number] [facility] 14:24:45 [id number] [place] 2022-03-02 Inpatient L[facility]IS [facility] [id number] [facility] 13:57:04 [id number] [place] 2022-01-22 Outpatient [facility] [id number] [place] 15:22:36 [id number] [facility] 2022-01-14 Outpatient [facility] [id number] [place] 19:22:32 [id number] [facility] 2022-01-11 Outpatient [facility] [id number] [place] 15:52:30 [id number] [facility] 2023-01-10 2023-01-10 Outpatient Hawkins_M [facility] [id number] -2022 [place] 00:00:00 00:00:00 0928 Medical Group 2023-01-10 2023-01-10 [place] Hawkins_[place] [id number] [place] 00:00:00 00:00:00 0929 Medical [facility] 2023-01-08 2023-01-08 Tori [facility] [place] - [id number] M at[place]or 00:00:00 00:00:00 Lizbet Bean Medical Medical SECURITY VEHICLE PATROL OFFICER: 600 [facility] [address], [place] [address] , Ph. 2022-12-27 2022-12-27 Tori [facility] [place] - [id number] M at[place]or 00:00:00 00:00:00 Lizbet Bean Medical Medical SECURITY VEHICLE PATROL OFFICER: 600 [facility] [address], [place] [address] , Ph. 2022-12-25 2022-12-25 [place] [id number] [place] 00:00:00 00:00:00 0914 Medical Group 2022-12-25 2022-12-25 Outpatient Hawkins_M [facility] [id number] -2022 [place] 00:00:00 00:00:00 0926 Medical Group 2022-12-25 2022-12-25 [place] [id number] -2022 [place] 00:00:00 00:00:00 0927 Medical Group 2022-12-24 2022-12-24 Outpatient Hawkins_M [facility] [id number] -2022 [place] 00:00:00 00:00:00 0911 Medical Group 2022-12-24 2022-12-24 Tori SANDY [place] - [id number] M at[place]or 00:00:00 00:00:00 Lizbet Bean Medical Medical SECURITY VEHICLE PATROL OFFICER: [address] [facility] [address], [place] [address] , Ph. 2022-11-27 2022-11-27 Tori SANDY [place] - [id number] M at[place]or 00:00:00 00:00:00 Lizbet Bean Medical Medical SECURITY VEHICLE PATROL OFFICER: [address] [facility] [address], [place] [address] , Ph. 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 2022-10-05 2022-10-05 Outpatient Hawkins_M [facility] [id number] -2022 [place] 00:00:00 00:00:00 0815 Medical Group 2022-10-05 2022-10-05 Outpatient Hawkins_M [facility] [id number] -2022 [place] 00:00:00 00:00:00 0623 da Medical Group 2022-10-05 2022-10-05 Outpatient Hawkins_M MMG MMG [id number] -2022 [place] 00:00:00 00:00:00 0626 da Medical Group 2022-09-04 2022-09-04 Outpatient Hawkins_M MMG MMG [id number] -2022 [place] 00:00:00 00:00:00 0523 da Medical Group 2022-08-27 2022-08-27 Outpatient Hawkins_M MMG MMG [id number] -2022 [place] 00:00:00 00:00:00 0515 da Medical Group 2022-08-27 2022-08-27 Tori MMG [place] - [id number] M [place] 00:00:00 00:00:00 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 2022-08-22 2022-08-22 [place] [id number] [place] 00:00:00 00:00:00 0510 da Medical Group 2022-08-09 2022-08-09 Liana Ewing [facility] [place] - [id number] [place] 00:00:00 00:00:00 Rowan Mejia MD: [id number] [employer] [place] [facility] [address], [facility] Program [address] , Ph. 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 [place] 2022-08-01 2022-08-01 Orders Doctor NATALIA [id number] [id number] Univers 00:00:00 00:00:00 Only Unassigned, [place] [id number] ity of [place] [facility] [id number] Eliel as [phone] 2022-07-30 2022-07-30 Tori [facility] [place] - [id number] [facility] 00[facility]00[facility]00 [facility] SECURITY VEHICLE PATROL OFFICER: 600 [facility] Family [address], [place] [address] , Ph. 2022-07-27 2022-07-28 [facility] [id number] [facility] 21:45:00 18:24:00 Encounter Tho [facility] 2022-07-27 2022-07-28 Outpatient ER FRITZ YUEN Gastro [id number] SLE 21:45:00 18:24:00 [facility] 2022-07-27 2022-07-28 [facility] [id number] [facility] 21:45:00 18:24:00 Encounter Tho [facility] 2022-07-26 2022-07-26 Outpatient Jourdan_J YASMANY [facility] [id number] [id number] [place] 00:00:00 00:00:00 0413 [facility] 2022-07-26 2022-07-26 Outpatient Young_J MMG MMG [id number] [place] 00:00:00 00:00:00 0417 da Medical Group 2022-07-26 2022-07-26 Outpatient Young_J [facility] [id number] [place] 00:00:00 00:00:00 0424 Medical Group 2022-07-13 2022-07-13 [facility] [id number] Univers 08:25:00 16:12:00 Brady Cabrales [place] [id number] i [facility] [id number] [facility] [id number] [place] [address] [place] 2022-07-13 2022-07-13 Emergency [facility] [id number] Univers 08:25:00 16:12:[address] [facility] [place] 2022-07-06 2022-07-06 Outpatient Jourdan_J [facility] [id number] [place] 00:00:00 00:00:00 0324 Medical Group 2022-07-06 2022-07-06 Outpatient Jourdan_J [facility] [id number] [place] 00:00:00 00:00:00 0325 Medical Group 2022-07-06 2022-07-06 Leon [facility] [place] - [id number] M atagor 00:00:00 00:00:00 DO Jourdan: Discovery calos esquivel [address] [place] [address] - [address], [facility] [address] , Ph. [phone] 2022-07-05 2022-07-05 Outpatient Presley_M [facility] [id number] [place] 00:00:00 00:00:00 0323 Medical [facility] 2022-07-05 2022-07-05 Tori [facility] [place] - [id number] M at[place]or 00:00:00 00:00:00 Riccardo Andrade Medical SECURITY VEHICLE PATROL OFFICER: [address] [place] [address], [facility] [address], [place] [address] , Ph. 2022-06-30 2022-06-30 Outpatient LUKAS KONG [facility] [id number] Univers 10:00:00 10:00:[address]a [facility] [place] 2022-06-29 2022-06-29 Outpatient BLANE SERRATO [facility] [id number] [place] 07:04:00 07:04:00 LEON -[id number] [facility] 2022-06-25 2022-06-25 Outpatient BLANE MEJIA [facility] [id number] [place] 10:54:00 10:54:00 LIANA -[id number] [facility] 2022-06-25 2022-06-25 Outpatient Jourdan_Carline [facility] [id number] [place] 00:00:00 00:00:00 0313 [facility] 2022-06-25 2022-06-25 Outpatient Jourdan_Carline [facility] [id number] 023 [place] 00:00:00 00:00:00 0314 [facility] 2022-06-25 2022-06-25 Outpatient Jourdan_J [facility] [id number] [place] 00:00:00 00:00:00 0315 [facility] 2022-06-25 2022-06-25 Leon [facility] [place] - [id number] M atagor 00:00:00 00:00:00 [address], [place] [address] , Ph. [phone] 2022-06-18 2022-06-18 Outpatient Ferguson_Ro MEHOP [facility] [id number] [place] 00:00:00 00:00:00 bin 0306 [facility] 2022-06-14 2022-06-14 Outpatient Ferguson_Ro MEHOP [facility] [id number] [place] 00:00:00 00:00:00 bin 0302 [facility] 2022-06-08 2022-06-08 Outpatient Ferguson_Ro MEHOP VAHOP [id number] [place] 00:00:00 00:00:00 bin 0224 [facility] 2022-06-07 2022-06-07 Outpatient Fausto [place] [id number] [place] 00:00:00 00:00:00 bin 0223 [facility] 2022-06-07 2022-06-07 Liana Ewing [facility] [place] - [id number] [place] 00:00:00 00:00:00 Rowan Mejia MD: [id number] [employer] pilot [place] [facility] - [facility] [address], [place] Program [address] , Ph. 2022-06-06 2022-06-06 Outpatient LEANNREEN_BEENA [place] [id number] [place] 00:00:00 00:00:00 HANA 0222 [facility] 2022-06-04 2022-06-04 Outpatient BLANE GIBBONS [facility] [id number] [place] 16:31:00 16:31:00 TORI -[id number] [facility] 2022-06-04 2022-06-04 Tori [facility] [place] - [id number] M at[place]or 00:00:00 00:00:00 Lizbet Bean, Medical Medical SECURITY VEHICLE PATROL OFFICER: [address] [place] [address], [facility] [address], [place] [address] , Ph. 2022-05-31 2022-05-31 Emergency ER CATANESCU, [facility] [id number] [place] 21:05:00 21:15:00 IGNACIO -[id number] [facility] 2022-05-28 2022-05-28 Emergency ER LEAL, [facility] [id number] [place] 21:28:00 23:37:00 YOLETTE -[id number] [facility] 2022-05-18 2022-05-18 Tori [facility] [place] - [id number] M atagor 00:00:00 00:00:00 Lizbet Bean Medical Medical SECURITY VEHICLE PATROL OFFICER: 600 [facility], [facility] [address], [place] [address] , Ph. 2022-05-17 2022-05-17 Angy Moreno [facility] [id number] [id number] Univers 00:00:00 00:00:00 [facility] [id number] ity of [place] [id number] Eliel as TERESE?BLEA [id number] [address] MEDICAL OFFICE BUILDING 2022-05-15 2022-05-15 Tori [facility] [place] - [id number] atagor 00:00:00 00:00:00 Lizbet Bean Medical Medical SECURITY VEHICLE PATROL OFFICER: 600 [facility], [facility] [address], [place] [address] , Ph. 2022-05-03 2022-05-03 Orders Doctor FISHER 1.2.840.114 [id number] Univers 00:00:00 00:00:00 Only Unassigned, [place] [id number] ity of [place] [facility] [id number] Eliel as [id number] 2022-03-16 2022-03-16 Outpatient LUKAS KONG [facility] [id number] Univers 14:00:00 14:00:[address] [facility] [place] 2022-02-23 2022-02-23 Outpatient Hawkins_M [facility] [id number] -2022 [place] 00:00:00 00:00:00 0131 Medical Group 2022-02-23 2022-02-23 Outpatient Hawkins_M [facility] [id number] -2022 [place] 00:00:00 00:00:00 0203 da Medical Group 2022-02-23 2022-02-23 Outpatient Hawkins_M [facility] [id number] -2022 [place] 00:00:00 00:00:00 0220 Medical Group 2022-02-23 2022-02-23 Outpatient Hawkins_M [facility] [id number] [place] 00:00:00 00:00:00 022 Medical Group 2022-02-23 2022-02-23 Outpatient Hawkins_M [facility] [id number] [place] 00:00:00 00:00:00 0227 Medical Group 2022-02-20 2022-02-20 Outpatient Hawkins_M MMG [facility] [id number] [place] 00:00:00 00:00:00 1108 Medical Group 2022-02-20 2022-02-20 [facility]phone [facility] 1.2.840.114 [id number] Univers 00:00:00 00:00:00 [facility] [id number] ity of [place] [id number] Eliel as TERESE?BLEA [id number] [facility] [address] [place] MEDICAL OFFICE [facility] 2022-02-20 2022-02-20 Tori SANDY [place] - [id number] M atagor 00:00:00 00:00:00 [facility] Medical Medical SECURITY VEHICLE PATROL OFFICER: 600 [facility] [address], [place] [address] , Ph. 2022-02-09 2022-02-09 Outpatient Hawkins_M [facility] [id number] [place] 00:00:00 00:00:00 1028 Medical Group 2022-01-24 2022-01-24 Outpatient [facility] [id number] [place] 08:45:00 08:45:00 Health 2022-01-22 2022-01-22 Telephone [facility] [id number] [id number] Univers 00:00:00 00:00:00 [facility] [id number] ity [facility] [id number] Eliel as TERESE?BLEA [id number] [facility] [address] [place] MEDICAL OFFICE [facility] 2022-01-17 2022-01-17 Outpatient Hawkins_M [facility] [id number] [place] 00:00:00 00:00:00 1005 Medical Group 2022-01-17 2022-01-17 Troi SANDY [place] - [id number] M atagor 00:00:00 00:00:00 Lizbet Bean Medical Medical SECURITY VEHICLE PATROL OFFICER: 600 [facility] [address], [place] [address] , Ph. 2022-01-10 2022-01-10 Telephone [facility] 1.2.840.114 [id number] Univers 00:00:00 00:00:00 [facility] [id number] ity of [place] [id number] Eliel as TERESE?BLEA [id number] [address] OFFICE [facility] 2022-01-05 2022-01-05 Office [facility] 1.2.840.114 [id number] Univers 16:00:00 16:52:54 Visit [facility] [id number] ity of [place] [id number] Eliel as TERESE?BLEA [id number] [address] OFFICE [facility] 2022-01-05 2022-01-05 Outpatient R LUKAS MORENO [facility] [id number] Univers 16:00:00 16:52:54 LUK[address] MORENO ila [facility] [place] 2022-01-05 2022-01-05 Letter [facility] 1.2.840.114 [id number] Univers 00:00:00 00:00:00 (Out) [facility] [id number] ity of [place] [id number] Eliel as TERESE?BLEA [id number] Nc dic[address] OFFICE [facility] 2022-01-04 2022-01-04 Outpatient Presley_Gemma [facility] [id number] -2021 [place] 00:00:00 00:00:00 0922 alida [facility] 2022-01-04 2022-01-04 Tori [facility] [place] - [id number] Gemma atagor 00:00:00 00:00:00 Lizbet Bean Medical Medical SECURITY VEHICLE PATROL OFFICER: 600 [facility] [address], [place] [address] , Ph. 2021-10-23 2021-10-23 [place] [id number] -2021 [place] 02:43:00 02:43:00 0711 [facility] 2021-10-23 2021-10-23 Tori MM [place] - [id number] M at[place]or 00:00:00 00:00:00 Lizbet Bean [facility] Medical SECURITY VEHICLE PATROL OFFICER: [address] [address] , Ph. 2021-10-05 2021-10-05 [place] [id number] -2021 [place] 09:37:00 09:37:00 0623 [facility] 2021-10-05 2021-10-05 Outpatient BLANE TOVARGIBBONS [facility] [id number] [place] 09:34:00 09:34:00 TORI [id number] [facility] 2021-10-05 2021-10-05 Tori MM [place] - [id number] M [place] 00:00:00 00:00:00 Lizbet Bean [facility] Medical SECURITY VEHICLE PATROL OFFICER: [address] [address] , Ph. 2021-10-04 2021-10-04 [place] [id number] -2021 [place] 04:46:00 04:46:00 0622 Medical [facility] 2021-09-14 2021-09-14 [place] [id number] [place] 04:46:00 04:46:00 0602 [facility] 2021-09-14 2021-09-14 Maritza [facility] [place] - [id number] [place] 00:00:00 00:00:00 Discovery Desire BrittP-C: [address] [address] , Ph. 2021-09-05 2021-09-05 Outpatient Yan_W MMG [facility] [id number] [place] 10:23:00 10:23:00 0524 Medical Group 2021-09-05 2021-09-05 YASMANY [place] - [id number] [place] 00:00:00 00:00:00 : Harika Daly [facility] [address], [facility], Otolaryngol [facility] [address] , Ph. 2021-08-24 2021-08-24 Outpatient Yan_W DUG [facility] [id number] [place] 10:31:00 10:31:00 0512 [facility] 2021-08-19 2021-08-19 Emergency ER HEMALATHA [facility] [id number] [place] 12:57:00 13:44:00 HERNANDEZ -[id number] [facility] 2021-08-14 2021-08-14 Outpatient LOKI SOFIA [facility] [id number] [place] 07:27:00 07:27:00 -[id number] [facility] 2021-08-14 2021-08-14 Outpatient Hawkins_M [facility] [id number] -2021 [place] 04:26:00 04:26:00 0502 [facility] 2021-08-14 2021-08-14 Outpatient Hawkins_M [facility] [id number] -2021 [place] 04:26:00 04:26:00 0509 Medical [facility] 2021-07-27 2021-07-27 Outpatient Hawkins_M [facility] [id number] -2021 [place] 12:50:00 12:50:00 0414 [facility] 2021-07-27 2021-07-27 Outpatient BLANE GIBBONS [facility] [id number] [place] 12:16:00 12:16:00 TORI -[id number] [facility] 2021-07-27 2021-07-27 Outpatient LEANNREEN_BEENA JONES [facility] [id number] -[id number] [place] 02:53:00 02:53:00 JASPAL Barragan4 [facility] 2021-07-27 2021-07-27 Tori SANDY [place] - [id number] [place] 00:00:00 00:00:00 Lizbet [facility] SECURITY VEHICLE PATROL OFFICER: [address] [address], [place] [address] , Ph. 2021-07-25 2021-07-25 [place] [id number] [place] 11:17:00 11:17:00 0412 [facility] 2021-07-25 2021-07-25 [place] [id number] [place] 11:17:00 11:17:00 0413 [facility] Group 2021-07-25 2021-07-25 Loki Ramos DU [place] - [id number] [place] 00:00:00 00:00:00 MD: Harika [facility] [address] [place] [address], [address] [facility] [phone] , Ph. 2021-07-24 2021-07-24 [place] [id number] -2021 [place] 02:56:00 02:56:00 0411 Medical Group 2021-07-24 2021-07-24 Tori SANDY [place] - [id number] M at[place] 00:00:00 00:00:00 Lizbet [facility] SECURITY VEHICLE PATROL OFFICER: [address] [address], [place] [address] , Ph. 2021-07-12 2021-07-12 [place] [id number] -2021 [place] 03:56:00 03:56:00 0330 Medical Group 2021-07-12 2021-07-12 [place] [id number] -2021 [place] 03:56:00 03:56:00 0331 Medical Group 2021-07-12 2021-07-12 Tori SANDYG [place] - [id number] M at[place] 00:00:00 00:00:00 Lizbet [facility] SECURITY VEHICLE PATROL OFFICER: [address] [facility] [address], [place] [address] , Ph. 2021-06-21 2021-06-21 Outpatient Mathewkins_M DUG [facility] [id number] -2021 [place] 04:09:00 04:09:00 0309 [facility] 2021-06-21 2021-06-21 Tori MM [place] - [id number] M [place] 00:00:00 00:00:00 Lizbet [facility] SECURITY VEHICLE PATROL OFFICER: [address] [facility] [address], [place] [address] , Ph. 2021-06-02 2021-06-02 Outpatient Presley_M [facility] [id number] -2021 [place] 03:48:00 03:48:00 0218 [facility] 2021-06-02 2021-06-02 Tori SANDY [place] - [id number] M [place] 00:00:00 00:00:00 Lizbet [facility] SECURITY VEHICLE PATROL OFFICER: [address] [facility] [address], [place] [address] , Ph. 2021-05-22 2021-05-22 Outpatient Presley_M [facility] [id number] -2021 [place] 12:37:00 12:37:00 0207 [facility] 2021-05-22 2021-05-22 Outpatient BLANE GIBBONS, [facility] [id number] [place] 12:36:00 12:36:00 TORI [id number] [facility] 2021-05-22 2021-05-22 Tori SANDY [place] - [id number] M [place] 00:00:00 00:00:00 Liz[facility] SECURITY VEHICLE PATROL OFFICER: [address] [facility] [address], [place] [address] , Ph. 2021-05-10 2021-05-10 Outpatient AMBREEN_[address]AR [address] [id number] [place] 05:02:00 05:02:00 JASPAL 0126 [facility] 2021-05-09 2021-05-09 [place] [id number] -2021 [place] 11:18:00 11:18:00 0125 [facility] 2021-05-09 2021-05-09 Tori MMG [place] - [id number] M [place] 00:00:00 00:00:00 Lizbet [facility] SECURITY VEHICLE PATROL OFFICER: [address] [facility] [address], [place] [address] , Ph. 2021-04-12 2021-04-12 [place] [id number] -2021 [place] 04:07:00 04:07:00 0124 [facility] 2021-04-12 2021-04-12 Outpatient Hawkins_M MMG MMG [id number] -2021 [place] 04:07:00 04:07:00 0121 [facility] 2021-03-23 2021-03-23 Outpatient Hawkins_M MMG MMG [id number] -2020 [place] 04:37:00 04:37:00 1209 [facility] 2021-03-23 2021-03-23 Outpatient Hawkins_M MMG MMG [id number] -2020 [place] 04:37:00 04:37:00 1216 [facility] 2021-03-23 2021-03-23 Outpatient Hawkins_M MMG MMG [id number] -2020 [place] 04:37:00 04:37:00 1228 [facility] 2021-03-23 2021-03-23 Tori MM [place] - [id number] M [place] 00:00:00 00:00:00 Lizbet [facility] SECURITY VEHICLE PATROL OFFICER: [address] [facility] [address], [place] [address] , Ph. 2020-12-27 2020-12-27 Emergency ER LOYD, [facility] [id number] [place] 15:00:00 15:30:00 DANNIELLEGISELA -[id number] [facility] 2020-09-06 2020-09-06 Emergency ER KAILA, [facility] [id number] [place] 22:30:00 23:52:00 [facility] -[id number] [facility] 2020-05-19 2020-05-19 Outpatient BLANE GIBBONS, [facility] [id number] [place] 15:17:00 15:17:00 TORI -[id number] [facility] 2020-05-19 2020-05-19 Outpatient Hawkins_M MMG MMG [id number] -2020 [place] 03:02:00 03:02:00 0209 [facility] 2020-05-19 2020-05-19 Outpatient Hawkins_M MMG MMG [id number] -2020 [place] 03:02:00 03:02:00 0224 [facility] 2020-05-19 2020-05-19 Outpatient Hawkins_M MMG MMG [id number] -2020 [place] 03:02:00 03:02:00 0204 [facility] 2020-05-18 2020-05-18 Outpatient Rutledge_L MMG MMG [id number] [place] 03:00:00 03:00:00 0203 [facility] 2020-03-02 2020-03-02 Outpatient Rutledge_L MMG MMG [id number] [place] 02:24:00 02:24:00 1118 [facility] 2020-01-29 2020-01-29 Outpatient BLANE CUENCA, [facility] [id number] [place] 14:53:00 14:53:00 ANABEL -[id number] [facility] 2020-01-21 2020-01-21 Outpatient BLANE CUENCA, [facility] [id number] [place] 11:41:00 11:41:00 ANABEL -[id number] [facility] 2020-01-08 2020-01-08 Outpatient [facility]REEN[facility] [id number] [place] 01:41:00 01:41:00 HANA 0925 [facility] 2020-01-08 2020-01-08 Outpatient AMBREEN_FAR [address] [id number] [place] 01:41:00 01:41:00 HANA 1012 [facility] 2020-01-08 2020-01-08 Outpatient AMBREEN_FAR MEHOP [facility] [id number] [place] 01:41:00 01:41:00 HANA 1209 [facility] 2019-12-23 2019-12-23 Outpatient Rutledge_L MMG MMG [id number] [place] 12:21:00 12:21:00 1008 [facility] 2019-10-31 2019-10-31 Outpatient Rutledge_L MMG MMG [id number] [place] 07:51:00 07:51:00 0718 [facility] 2019-10-30 2019-10-30 Outpatient EL ADIN, [facility] [id number] [place] 15:52:00 15:52:00 MARTINEZ -[id number] [facility] 2019-10-30 2019-10-30 Outpatient Rutledge_L MMG MMG [id number] [place] 04:04:00 04:04:00 0717 [facility] 2019-10-30 2019-10-30 Martinez MM [place] - [id number] M [place] 00:00:00 00:00:00 Discovery alida Hernadez MD: 600 [facility] [address], [place] [address] , Ph. [phone] 2019-09-21 2019-09-21 Emergency ER MENESES, [facility] [id number] [place] 18:37:00 19:38:00 CEASAR [id number] [facility] 2019-09-20 2019-09-21 Emergency ER GIANNONE, [facility] [id number] [place] 23:30:00 00:21:00 EMILY [id number] [facility] 2019-09-11 2019-09-11 Emergency ER IRUKE, [facility] [id number] [place] 18:04:00 19:02:00 ENE -[id number] d a [facility] 2019-09-02 2019-09-02 Outpatient Rutledge_L MMG MMG [id number] [place] 05:24:00 05:24:00 0520 [facility] 2019-09-02 2019-09-02 Outpatient Rutledge_L MMG MMG [id number] [place] 05:24:00 05:24:00 0616 [facility] 2019-09-02 2019-09-02 Outpatient Rutledge_L MMG MMG [id number] [place] 05:24:00 05:24:00 0707 [facility] 2019-09-02 2019-09-02 Outpatient Rutledge_L MMG MMG [id number] [place] 05:24:00 05:24:00 0716 [facility] 2019-07-07 2019-07-07 Outpatient Rutledge_L MMG MMG [id number] [place] 09:58:00 09:58:00 0324 [facility] 2019-07-07 2019-07-07 Outpatient Rutledge_L MMG MMG [id number] [place] 09:58:00 09:58:00 0326 [facility] 2019-07-01 2019-07-01 Outpatient Rutledge_L MMG MMG [id number] [place] 08:57:00 08:57:00 0318 [facility] 2019-07-01 2019-07-01 Anabel MMG [place] - [id number] M [place] 00:00:00 00:00:00 George [facility]ica toy CONTRERAS: [address] [place] [address] [address], [place] [address] , Ph. [phone] 2019-06-11 2019-06-11 Outpatient Rutledge_L MMG MMG [id number] [place] 07:31:00 07:31:00 0227 [facility] 2019-06-11 2019-06-11 Outpatient MIKIE LOZADA [facility] [id number] [place] 06:04:00 06:04:00 ANABEL -[id number] [facility] 2019-06-10 2019-06-10 Outpatient Rutledge_L MMG MMG [id number] [place] 01:13:00 01:13:00 0226 [facility] 2019-06-10 2019-06-10 Anabel MMG [place] - [id number] M [place] 00:00:00 00:00:00 [facility] l MD: 600 [facility] [address] [place] [address] , Ph. [phone] 2019-06-09 2019-06-09 Outpatient Rutledge_L MMG MMG [id number] [place] 10:05:00 10:05:00 0225 [facility] 2019-05-26 2019-05-26 Outpatient Rutledge_L MMG MMG [id number] [place] 10:08:00 10:08:00 0218 [facility] 2019-05-24 2019-05-24 Outpatient Rutledge_L MMG MMG [id number] [place] 01:23:00 01:23:00 0209 [facility] 2019-05-20 2019-05-20 Outpatient Rutledge_L MMG MMG [id number] [place] 04:23:00 04:23:00 0205 [facility] 2019-05-20 2019-05-20 Anabel MMG [place] - [id number] M [place] 00:00:00 00:00:00 George [facility] toy MD: 600 [facility] [address] [place] [address] , Ph. [phone] 2019-05-15 2019-05-15 Outpatient Rutledge_L MMG MMG [id number] [place] 10:18:00 10:18:00 0204 [facility] 2019-05-12 2019-05-12 Outpatient Rutledge_L MMG MMG [id number] [place] 02:38:00 02:38:00 0128 [facility] 2019-05-02 2019-05-02 Outpatient Rutledge_L MMG MMG [id number] [place] 10:43:00 10:43:00 0118 [facility] 2019-04-30 2019-05-01 Inpatient EL LUZ ELENA [facility] [id number] [place] 05:25:00 09:45:00 ANABEL -[id number] [facility] 2019-04-28 2019-04-28 Outpatient Rutledge_L MMG MMG [id number] [place] 11:48:00 11:48:00 0114 [facility] 2019-04-28 2019-04-28 Martinez MMG [place] - [id number] M [place] 00:00:00 00:00:00 Discovery alida Hernadez MD: [address] [place] [address] , Ph. [phone] 2019-04-27 2019-04-27 Outpatient Rutledge_L MMG MMG [id number] [place] 11:34:00 11:34:00 0113 [facility] 2019-04-26 2019-04-26 Outpatient Rutledge_L MMG MMG [id number] [place] 12:05:00 12:05:00 0112 [facility] 2019-04-24 2019-04-24 Outpatient BLANE BADILLO [facility] [id number] [place] 16:24:00 16:24:00 HARPER -[id number] [facility] 2019-04-24 2019-04-24 Outpatient Rutledge_L MMG MMG [id number] [place] 04:21:00 04:21:00 0110 [facility] 2019-04-24 2019-04-24 Harper Ewing MMG [place] - [id number] [place] 00:00:00 00:00:00 Discovery alida Badillo WHNP: [address] [place] [address] , Ph. [phone] 2019-04-23 2019-04-23 Outpatient Rutledge_L MMG MMG [id number] [place] 12:43:00 12:43:00 0109 [facility] 2019-04-23 2019-04-23 Martinez MMG [place] - [id number] M [place] 00:00:00 00:00:00 Discovery alida Hernadez MD: [address] [place] [address] [place] [address] , Ph. [phone] 2019-04-19 2019-04-19 Outpatient Rutledge_L MMG MM [id number] [place] 09:06:00 09:06:00 0105 [facility] 2019-04-19 2019-04-19 Outpatient Rutledge_L MMG MMG [id number] [place] 09:06:00 09:06:00 0108 [facility] 2019-04-16 2019-04-16 Outpatient Rutledge_L MMG MMG [id number] [place] 05:03:00 05:03:00 0102 [facility] 2019-04-16 2019-04-16 Outpatient Rutledge_L MMG MMG [id number] [place] 05:03:00 05:03:00 0103 [facility] 2019-04-16 2019-04-16 Martinez [facility] [place] - [id number] M [place] 00:00:00 00:00:00 Discovery alida Hernadez MD: [address] [place] [address] , Ph. [phone] 2019-04-02 2019-04-02 Anabel MM [place] - [id number] M [place] 00:00:00 00:00:00 George [facility] toy MD: [address] [place] [address] , Ph. [phone] 2019-03-30 2019-03-30 Anabel MM [place] - [id number] M [place] 00:00:00 00:00:00 George Hoffman Medical Medicalvin yeager MD: [address] [place] [address] , Ph. [phone] 2019-03-27 2019-03-27 Anabel MM [place] - [id number] M [place] 00:00:00 00:00:00 George Hoffman Medical Medicalvin yeager MD: [address] [place], [place] [address] , Ph. [phone] 2019-03-09 2019-03-09 Outpatient BLANE BADILLO, [facility] [id number] [place] 11:48:00 11:48:00 HARPER [id number] [facility] 2019-03-09 2019-03-09 Harper Ewing [facility] [place] - [id number] [place] 00:00:00 00:00:00 Discovery alida Badillo WHNP: 600 [facility] [address], [place] [address] , Ph. [phone] 2019-03-04 2019-03-04 Outpatient BLANE HERNADEZ, [facility] [id number] [place] 15:28:00 15:28:00 MARTINEZ [id number] [facility] 2019-03-04 2019-03-04 Martinez [facility] [place] - [id number] M [place] 00:00:00 00:00:00 Discovery alida Hernadez MD: [address] [place] [address], [place] [address] , Ph. [phone] 2018-10-11 2018-10-11 Emergency ER EVA, [facility] [id number] [place] 11:26:00 13:55:00 JANNETH -[id number] [facility] 2018-08-09 2018-08-09 Emergency ER TIM, [facility] [id number] [place] 01:09:00 02:33:00 TAYLOR -[id number] [facility] 2018-04-10 2018-04-10 Emergency ER NASRA, [facility] [id number] [place] 16:01:00 17:47:00 SEKOU -[id number] [facility] 2016-12-27 2016-12-27 Emergency ER ANTONETTEORKASSANDRA, [facility] [id number] 60 [place] 18:24:00 22:22:00 MARBIN -[id number] [facility] 2016-07-24 2016-07-24 Emergency ER BA, ROS [facility] [id number] [place] 18:12:00 23:33:00 -[id number] [facility] 2016-07-10 2016-07-10 Emergency ER , [facility] [id number] [place] 03:44:00 06:04:00 WASIM -[id number] [facility] 2016-06-11 2016-06-12 Emergency ER ROS REICH [facility] [id number] [place] 22:13:00 01:55:00 -[id number] [facility] 2016-06-09 2016-06-09 Emergency ER LOYD, [facility] [id number] [place] 01:11:00 04:34:00 OLENDRUFF -[id number] [facility] 2016-05-11 2016-05-11 Emergency ER EMILIANO, [facility] [id number] 60 [place] 16:38:00 18:43:00 CLEMENT -[id number] [facility] Results Test Description Test Time Test Comments Results Result Sour e Comments MR, ABDOMEN, MRCP 2022-07-28 Unlisted 14:46:00 Reason for Exam - Click CHI Yes and Enter [facility] - MEDICAL Reason CENTERName: Heath MENDOZA->No AMRIT : 1995 Sex: F FI [facility] REPORT MR Abdomen dated 07/28/2022 Comment: Multiplanar [...] s not applicable for dialysis mikayla parker Assessment Services Manager ID - BSHEPATIC FUNCTION [id number] 06:38:11 Test Item Value Reference Range Interpretation [...] code = 97 U/L 6-55 H 347) Assessment Services Manager ID - BSCBC W/PLT COUNT & AUTO [id number] 06:04:32 Test Item Value Reference Range Interpretation [...] (test code = 2801) COMP. METABOLIC PANEL (77403)2022-07-13 18:35:07 Test Item Value Reference Range Interpretation Comments NA (test code = 137 mmol/L 135-145 2291798547) K (test code = 4.4 mmol/L 3.5-5.0 9517623548) CL (test code = 101 mmol/L 98-108 9308324104) CO2 TOTAL (test code 27 mmol/L 23-31 = 9557048068) AGAP (test code = 9 2-16 3844598864) BUN (test code = 13 mg/dL 7-23 3314867793) GLUCOSE (test code = 87 mg/dL 70-110 9124851660) CREATININE (test code 0.66 mg/dL 0.50-1.04 = 4677697329) TOTAL BILI (test code 0.7 mg/dL 0.1-1.1 = 6576878732) CALCIUM (test code = 9.2 mg/dL 8.6-10.6 6336152217) T PROTEIN (test code 7.2 g/dL 6.3-8.2 = 1403748980) ALBUMIN (test code = 4.6 g/dL 3.5-5.0 0765099446) ALK PHOS (test code = 61 U/L 34-122 4634473871) ALTv (test code = 21 U/L 5-35 1742-6) AST(SGOT) (test code 28 U/L 13-40 = 8755908065) eGFR (test code = 110.0 mL/min/1.73m2 6346920844) DEE (test code = DEE) Association of [...] or urine or abnormalities in imaging tests). [facility] 18:34:46 Test Item Value Reference Range Interpretation Comments LIPASE (test code = 3226007212) 38 U/L 0-220 Lab Interpretation (test code = Normal 12854-9) [facility] SystemCB WITH [id number] 18:21:04 Test Item Value Reference Range Interpretation Comments WBC (test code = 8.73 See_Comment [Automated 9690-2) message] The sy stem which generated this [...] RDW-SD (test code = 41.6 fL 39.0-49.9 04963-5) RDW-CV (test code = 14.3 % 12.0-15.5 788-0) PLT (test code = 262 See_Comment [Automated 777-3) message] The sy stem which generated this result transmitted reference range : 166 - 358 10*3/ ?L. The reference r adriana was not used to interpret this result as normal/abnormal . MPV (test code = 10.7 fL 9.5-12.9 98702-7) NRBC/100 WBC (test 0.0 See_Comment [Automat ed code = 4367277565) message] The system which generated this result transmitted reference range : 0.0 - 10.0 /100 WBCs. The refer ence range was not u sed to interpret th is result as normal/abnormal . NRBC x10^3 (test code See_Comment [Auto mated = 0922473646) message] The s ystem which generated this result transmitted reference range : 10*3/?L. The reference range was not used to interpret this result as normal/abnormal . GRAN MAT (NEUT) % 56.1 % (test code = 770-8) IMM GRAN % (test code 0.30 % = 9561615847) LYMPH % (test code = 36.0 % 736-9) MONO % (test code = 4.5 % 5905-5) EOS % (test code = 2.2 % 713-8) BASO % (test code = 0.9 % 706-2) GRAN MAT x10^3(ANC) 4.90 10*3/uL 1.88-7.09 (test code = 3080205008) IMM GRAN x10^3 (test 0.03 10*3/uL 0.00-0.06 code = 8138272618) LYMPH x10^3 (test code 3.14 10*3/uL 1.32-3.29 = 731-0) MONO x10^3 (test code 0.39 10*3/uL 0.33-0.92 = 742-7) EOS x10^3 (test code = 0.19 10*3/uL 0.03-0.39 711-2) BASO x10^3 (test code 0.08 10*3/uL 0.01-0.07 H = 704-7) Lab Interpretation Abnormal (test code = 16628-8) [facility] [id number] 17:54:00 Test Item Value Reference Range Interpretation Comments POCT PREG (test code = 1605) negative On board controls acceptable with C present Line (test code = 3574) Lab Interpretation (test code = Normal 67414-2) [facility]/[id number] 09:44:00 Test Item Value Reference Range Interpretation Comments prothrombin time (test code = 10.2 seconds 10.3-12.3 L prothrombin time) INR (test code = INR) < 0.94 [facility] [id number] 09:44:00 Test Item Value Reference Range Interpretation Comments partial thromboplastin time 25.4 seconds 22.5-37.0 (test code = partial thromboplastin time) [facility]/[id number] 09:44:00 Test Item Value Reference Range Interpretation Comments prothrombin time (test code = 10.2 seconds 10.3-12.3 L prothrombin time) INR (test code = INR) < 0.94 [facility] [id number] 09:44:00 Test Item Value Reference Range Interpretation Comments partial thromboplastin time 25.4 seconds 22.5-37.0 (test code = partial thromboplastin time) [facility] metabolic [id number] 09:42:00 Test Item Value Reference Range Interpretation [...] code = 9.7 mg/dL 8.6-10.0 calcium level) [facility] [id number] 09:42:00 Test Item Value Reference Range Interpretation [...] U/L 35-105 code = alkaline phosphatase, total) [facility] metabolic [id number] 09:42:00 Test Item Value Reference Range Interpretation [...] code = 9.7 mg/dL 8.6-10.0 calcium level) [facility] [id number] 09:42:00 Test Item Value Reference Range Interpretation [...] U/L 35-105 code = alkaline phosphatase, total) [facility] W Auto Differential panel - [id number] 09:26:00 Test Item Value Reference Range Interpretation [...] NRBC# (test code = NRBC#) 0 K/uL [facility] W Auto Differential panel - [id number] 09:26:00 Test Item Value Reference Range Interpretation [...] NRBC# (test code = NRBC#) 0 K/uL [facility] folate [id number] 17:28:00 Test Item Value Reference Range Interpretation Comments vitamin B12 (test code = vitamin 694.7 pg/mL 211-946 B12) folate (test code = folate) 6.69 NG/mL 4.78-24.2 [facility] [id number] 17:28:00 Test Item Value Reference Range Interpretation Comments vitamin B12 (test code = vitamin 694.7 pg/mL 211-946 B12) folate (test code = folate) 6.69 NG/mL 4.78-24.2 [facility]2023-[facility]-20 17:08:00 Test Item Value Reference Range Interpretation Comments lipase (test code = lipase) 18 U/L 13-60 [facility]in2023-[facility]-20 17:08:00 Test Item Value Reference Range Interpretation Comments ferritin (test code = ferritin) < 28.5 13-150 [facility]/TIBC [id number] 17:08:00 Test Item Value Reference Range Interpretation Comments iron (fe) (test code = iron (fe)) 27 ug/dL 37-145 L total iron binding capacity (test 301 ug/dL 260-445 code = total iron binding capacity) % saturation (test code = % 9 % 12-45 L saturation) [facility]2023-[facility]-20 17:08:00 Test Item Value Reference Range Interpretation Comments lipase (test code = lipase) 18 U/L 13-60 [facility]2023-02-20 17:08:00 Test Item Value Reference Range Interpretation Comments ferritin (test code = ferritin) < 28.5 13-150 [facility]TIBC [id number] 17:08:00 Test Item Value Reference Range Interpretation Comments iron (fe) (test code = iron (fe)) 27 ug/dL 37-145 L total iron binding capacity (test 301 ug/dL 260-445 code = total iron binding capacity) % saturation (test code = % 9 % 12-45 L saturation) [facility] HospitalAmylase [Enzymatic activity/volume] in Serum or Plasma 2022-06-04 00:00:00 Test Item Value Reference Range Interpretation Comments amylase level (test code = amylase 61 U/L 28-100 level) [facility] HospitalAmylase [Enzymatic activity/volume] in Serum or Plasma 2022-06-04 00:00:00 Test Item Value Reference Range Interpretation Comments amylase level (test code = amylase 61 U/L 28-100 level) [facility]V/covid [id number] 22:40:00 Test Item Value Reference Range Interpretation Comments RSV xpress (test code = RSV RSV negative xpress) covid-19 inhouse (test code = covid-19 inhouse) flu A (test code = flu A) flu A negative flu B (test code = flu B) flu B negative [facility]covid [id number] 22:40:00 Test Item Value Reference Range Interpretation Comments RSV xpress (test code = RSV RSV negative xpress) covid-19 inhouse (test code = covid-19 inhouse) flu A (test code = flu A) flu A negative flu B (test code = flu B) flu B negative [facility] A [id number] 22:25:00 Test Item Value Reference Range Interpretation Comments strep A xpress (test strep A not detected code = strep A xpress) [facility] A [id number] 22:25:00 Test Item Value Reference Range Interpretation Comments strep A xpress (test strep A not detected code = strep A xpress) [facility] SARS-CoV+SARS-CoV-2 (COVID- 19) Ag panel - Upper respiratory specimen by Rapid [id number] 14:23:00 Test Item Value Reference Range Interpretation Comments RAPID SARS COV (test code = RAPID negative SARS COV) RAPID FLU A (test code = RAPID FLU negative A) RAPID FLU B (test code = RAPID FLU negative B) [facility] SARS-CoV+SARS-CoV-2 (COVID- 19) Ag panel - Upper respiratory specimen by Rapid [id number] 14:23:00 Test Item Value Reference Range Interpretation Comments RAPID SARS COV (test code = RAPID negative SARS COV) RAPID FLU A (test code = RAPID FLU negative A) RAPID FLU B (test code = RAPID FLU negative B) [facility] strep group A, [id number] 12:10:54 Test Item Value Reference Range Interpretation Comments Strep Result (test code = Strep positive Result) [facility] strep group A, [id number] 12:10:54 Test Item Value Reference Range Interpretation Comments Strep Result (test code = Strep positive Result) [facility] strep group A, [id number] 12:10:54 Test Item Value Reference Range Interpretation Comments Strep Result (test code = Strep positive Result) [facility] HospitalInfluenza virus A and B and SARS-CoV+SARS-CoV-2 (COVID- 19) Ag panel - Upper respiratory specimen by Rapid [id number] 16:31:00 Test Item Value Reference Range Interpretation Comments RAPID SARS COV (test code = RAPID negative SARS COV) RAPID FLU A (test code = RAPID FLU negative A) RAPID FLU B (test code = RAPID FLU negative B) [facility], [id number] 16:06:15 Test Item Value Reference Range Interpretation Comments Test (test code = negative Test) [facility], [id number] 16:06:15 Test Item Value Reference Range Interpretation Comments Test (test code = negative Test) [facility]Urinal[facility] W Reflex Culture panel - Urine 2021-10-05 07:44:00 Test Item Value Reference Range Interpretation Comments Color of Urine by Auto (test code lt. yellow = 22862-6) Appearance of Urine (test code = SL cloudy clear 5767-9) Glucose [Mass/volume] in Urine negative negative (test code = 2350-7) bilirubin, urine (test code = negative negative bilirubin, urine) ketone, urine (test code = negative negative ketone, urine) Specific gravity of Urine by 1.015 1.003-1.030 Automated test strip (test code = 46898-9) Hemoglobin [Presence] in Urine by small negative H Test strip (test code = 5794-3) pH of Urine (test code = 2756-5) 6.500 5-9 protein urine (UA) (test code = negative negative protein urine (UA)) Urobilinogen [Presence] in Urine 0.2 E.U./dL 0.2-1.0 (test code = 46579-7) Nitrite [Presence] in Urine by positive negative Test strip (test code = 5802-4) urine leukocyte esterase (test =1 negative H code = urine leukocyte esterase) Erythrocytes [Presence] in Urine =4-6 0-5 H (test code = 41683-9) WBC, urine (test code = WBC, =5-9 0-5 H urine) bacteria, urine (test code = full field none detect H bacteria, urine) Casts [#/area] in Urine sediment =2-5 none detect by Automated count (test code = 53787-2) urine culture added? (test code = yes urine culture added?) squamous epithelial cell urine =6-10 0-5 (test code = squamous epithelial cell urine) mucus, urine (test code = mucus, =1 none detect urine) [facility] W Auto Differential panel - [id number] 07:44:00 Test Item Value Reference Range Interpretation Comments white blood count (test code = 6.7 K/uL 4.0-11.5 white blood count) red blood count (test code = red 4.89 M/uL 3.80-5.20 blood count) hemoglobin (test code = 12.5 g/dL 10.5-15.7 hemoglobin) hematocrit (test code = 40.6 % 34.0-50.0 hematocrit) MCV [Entitic volume] (test code = 83.0 fL 86.0-100.0 L 31227-9) mean corpuscular hemoglobin (test 25.6 pg 26.2-33.4 [...] 44.4-80.1 leukocytes in Blood (test code = 60569-3) Immature granulocytes [#/volume] 0.01 K/uL 0.00-0.03 in Blood (test code = 44206-7) lymphocyte% (test code = 38.8 % 10.0-50.0 lymphocyte%) mono % (test code = mono %) 6.9 % 3.6-12.0 eos % (test code = eos %) 1.5 % 0.0-5.4 basophil % (test code = basophil 1.1 % 0.1-1.2 %) Band form neutrophils [#/volume] 3.43 K/uL 1.56-6.13 in Blood (test code = 63523-3) Lymphocytes [#/volume] in Specimen 2.58 K/uL 1.18-3.74 by Automated count (test code = 86165-4) mono # (test code = mono #) 0.46 K/uL 0.24-0.86 eos # (test code = eos #) 0.10 K/uL 0.04-0.36 basophil # (test code = basophil 0.07 K/uL 0.01-0.08 #) NRBC% (test code = NRBC%) 0 /100 WBC 0-0.2 NRBC# (test code = NRBC#) 0 K/uL [facility]Com[facility] - Serum or [...] Serum or Plasma (test code = 6768-6) [facility] HospitalLipid 1996 panel - Serum or [id number] 07:44:00 Test Item Value Reference Range Interpretation Comments cholesterol level (test code = 145 mg/dL 150-200 L cholesterol level) triglycerides level (test code = 57 mg/dL <150 triglycerides level) HDL cholesterol (test code = HDL 66 mg/dL >65 cholesterol) LDL cholesterol direct (test code = 69 mg/dL <100 LDL cholesterol direct) cholesterol risk ratio (test code = 2.196 cholesterol risk ratio) [facility]Ur[facility] W Reflex Culture panel - Urine 2021-10-05 07:44:00 Test Item Value Reference Range Interpretation Comments Color of Urine by Auto (test code lt. yellow = 12482-2) Appearance of Urine (test code = SL cloudy clear 5767-9) Glucose [Mass/volume] in Urine negative negative (test code = 2350-7) bilirubin, urine (test code = negative negative bilirubin, urine) ketone, urine (test code = negative negative ketone, urine) Specific gravity of Urine by 1.015 1.003-1.030 Automated test strip (test code = 05801-0) Hemoglobin [Presence] in Urine by small negative H Test strip (test code = 5794-3) pH of Urine (test code = 2756-5) 6.500 5-9 protein urine (UA) (test code = negative negative protein urine (UA)) Urobilinogen [Presence] in Urine 0.2 E.U./dL 0.2-1.0 (test code = 22750-4) Nitrite [Presence] in Urine by positive negative Test strip (test code = 5802-4) urine leukocyte esterase (test =1 negative H code = urine leukocyte esterase) Erythrocytes [Presence] in Urine =4-6 0-5 H (test code = 83115-3) WBC, urine (test code = WBC, =5-9 0-5 H urine) bacteria, urine (test code = full field none detect H bacteria, urine) Casts [#/area] in Urine sediment =2-5 none detect by Automated count (test code = 50063-4) urine culture added? (test code = yes urine culture added?) squamous epithelial cell urine =6-10 0-5 (test code = squamous epithelial cell urine) mucus, urine (test code = mucus, =1 none detect urine) [facility] W Auto Differential panel - [id number] 07:44:00 Test Item Value Reference Range Interpretation Comments white blood count (test code = 6.7 K/uL 4.0-11.5 white blood count) red blood count (test code = red 4.89 M/uL 3.80-5.20 blood count) hemoglobin (test code = 12.5 g/dL 10.5-15.7 hemoglobin) hematocrit (test code = 40.6 % 34.0-50.0 hematocrit) MCV [Entitic volume] (test code = 83.0 fL 86.0-100.0 L 15503-8) mean corpuscular hemoglobin (test 25.6 pg 26.2-33.4 [...] 44.4-80.1 leukocytes in Blood (test code = 14453-2) Immature granulocytes [#/volume] 0.01 K/uL 0.00-0.03 in Blood (test code = 04393-4) lymphocyte% (test code = 38.8 % 10.0-50.0 lymphocyte%) mono % (test code = mono %) 6.9 % 3.6-12.0 eos % (test code = eos %) 1.5 % 0.0-5.4 basophil % (test code = basophil 1.1 % 0.1-1.2 %) Band form neutrophils [#/volume] 3.43 K/uL 1.56-6.13 in Blood (test code = 35943-6) Lymphocytes [#/volume] in Specimen 2.58 K/uL 1.18-3.74 by Automated count (test code = 05207-1) mono # (test code = mono #) 0.46 K/uL 0.24-0.86 eos # (test code = eos #) 0.10 K/uL 0.04-0.36 basophil # (test code = basophil 0.07 K/uL 0.01-0.08 #) NRBC% (test code = NRBC%) 0 /100 WBC 0-0.2 NRBC# (test code = NRBC#) 0 K/uL [facility]Com[facility] 2000 panel - Serum or [...] Serum or Plasma (test code = 6768-6) [facility] HospitalLipid 1996 panel - Serum or [id number] 07:44:00 Test Item Value Reference Range Interpretation Comments cholesterol level (test code = 145 mg/dL 150-200 L cholesterol level) triglycerides level (test code = 57 mg/dL <150 triglycerides level) HDL cholesterol (test code = HDL 66 mg/dL >65 cholesterol) LDL cholesterol direct (test code = 69 mg/dL <100 LDL cholesterol direct) cholesterol risk ratio (test code = 2.196 cholesterol risk ratio) [facility] HospitalBacteria identified in Urine by [id number] 07:44:00[facility] [id number] 07:44:00 Test Item Value Reference Range Interpretation [...] Minimum inhibitory concentration (GUSTAVO) (test code = 25675-1) cefTAZidime [Susceptibility] by <=2 Minimum inhibitory concentration (GUSTAVO) (test code = 133-9) cefTRIAXone [Susceptibility] by <=1 Minimum inhibitory concentration (GUSTAVO) (test code = 141-2) Ciprofloxacin [Susceptibility] by <=0.25 Minimum inhibitory concentration (GUSTAVO) (test code = 185-9) Ampicillin+Sulbactam =8/4 [Susceptibility] by Minimum inhibitory concentration (GUSTAVO) (test code = 32-3) Ertapenem [Susceptibility] by <=0.25 Minimum inhibitory concentration (GUSTAVO) (test code = 91507-7) Aztreonam [Susceptibility] by <=2 Minimum inhibitory concentration (GUSTAVO) (test code = 44-8) Cefepime [Susceptibility] by Minimum <=1 inhibitory concentration (GUSTAVO) (test code = 6644-9) Meropenem [Susceptibility] by <=0.5 Minimum inhibitory concentration (GUSTAVO) (test code = 6652-2) Moxifloxacin [Susceptibility] by <=1 Minimum inhibitory concentration (GUSTAVO) (test code = 33930-1) Amikacin [Susceptibility] by Minimum <=8 inhibitory concentration (GUSTAVO) (test code = 12-5) Piperacillin+Tazobactam =4/4 [Susceptibility] by Minimum inhibitory concentration (GUSTAVO) (test code = 412-7) Ceftaroline [Susceptibility] by <=0.25 Minimum inhibitory concentration (GUSTAVO) (test code = 62485-0) Tigecycline [Susceptibility] by 2 ug/mL Minimum inhibitory concentration (GUSTAVO) (test code = 06095-0) [facility] HospitalErythrocyte sedimentation [id number] 00:00:00 Test Item Value Reference Range Interpretation Comments erythrocyte sedimentation rate (test 8 mm/HR 0.00-20 code = erythrocyte sedimentation rate) [facility] HospitalHemoglobin A1c [Mass/volume] in [id number] 00:00:00 Test Item Value Reference Range Interpretation Comments Hemoglobin A1c [Mass/volume] in Blood 5.4 % 4.0-6.0 (test code = 35367-3) [facility] HospitalThyrotropin [Units/volume] in Serum or [id number] 00:00:00 Test Item Value Reference Range Interpretation Comments Thyrotropin [Units/volume] in 0.94 uIU/mL 0.36-3.74 Serum or Plasma (test code = 3016-3) [facility] HospitalThyroxine (T4) [Mass/volume] in Serum or [id number] 00:00:00 Test Item Value Reference Range Interpretation Comments T4 (test code = T4) 7.1 ug/dL 4.5-11.7 [facility] HospitalErythrocyte sedimentation [id number] 00:00:00 Test Item Value Reference Range Interpretation Comments erythrocyte sedimentation rate (test 8 mm/HR 0.00-20 code = erythrocyte sedimentation rate) [facility] HospitalHemoglobin A1c/Hemoglobin.total in [id number] 00:00:00 Test Item Value Reference Range Interpretation Comments Hemoglobin A1c [Mass/volume] in Blood 5.4 % 4.0-6.0 (test code = 47691-9) [facility] HospitalThyrotropin [Units/volume] in Serum or [id number] 00:00:00 Test Item Value Reference Range Interpretation Comments Thyrotropin [Units/volume] in 0.94 uIU/mL 0.36-3.74 Serum or Plasma (test code = 3016-3) [facility] HospitalThyroxine (T4) [Mass/volume] in Serum or [id number] 00:00:00 Test Item Value Reference Range Interpretation Comments T4 (test code = T4) 7.1 ug/dL 4.5-11.7 [facility] Hospitalrapid strep group A, [id number] 17:41:17 Test Item Value Reference Range Interpretation Comments Strep Result (test code = Strep negative Result) [facility] [id number] 17:41:17 Test Item Value Reference Range Interpretation Comments Strep Result (test code = Strep negative Result) [facility] HospitalInfluenza virus A and B and SARS-CoV+SARS-CoV-2 (COVID- 19) Ag panel - Upper respiratory specimen by Rapid [id number] 16:52:00 Test Item Value Reference Range Interpretation Comments RAPID SARS COV (test code = RAPID negative SARS COV) RAPID FLU A (test code = RAPID FLU negative A) RAPID FLU B (test code = RAPID FLU negative B) [facility] HospitalInfluenza virus A and B and SARS-CoV+SARS-CoV-2 (COVID- 19) Ag panel - Upper respiratory specimen by Rapid [id number] 16:52:00 Test Item Value Reference Range Interpretation Comments RAPID SARS COV (test code = RAPID negative SARS COV) RAPID FLU A (test code = RAPID FLU negative A) RAPID FLU B (test code = RAPID FLU negative B) [facility] W Auto Differential panel - [id number] 10:41:00 Test Item Value Reference Range Interpretation Comments white blood count (test code = 8.4 K/uL 4.0-11.5 white blood count) red blood count (test code = red 5.53 M/uL 3.80-5.20 H blood count) hemoglobin (test code = 14.3 g/dL 10.5-15.7 hemoglobin) hematocrit (test code = 45.4 % 34.0-50.0 hematocrit) MCV [Entitic volume] (test code = 82.1 fL 86.0-100.0 L 35113-7) mean corpuscular hemoglobin (test 25.9 pg 26.2-33.4 [...] 44.4-80.1 leukocytes in Blood (test code = 68193-5) Immature granulocytes [#/volume] 0.02 K/uL 0.00-0.03 in Blood (test code = 83446-5) lymphocyte% (test code = 38.7 % 10.0-50.0 lymphocyte%) mono % (test code = mono %) 5.3 % 3.6-12.0 eos % (test code = eos %) 1.4 % 0.0-5.4 Basophils/100 leukocytes in 0.6 % 0.1-1.2 Specimen (test code = 06435-9) Band form neutrophils [#/volume] 4.53 K/uL 1.56-6.13 in Blood (test code = 48794-0) Lymphocytes [#/volume] in Specimen 3.27 K/uL 1.18-3.74 by Automated count (test code = 76929-5) mono # (test code = mono #) 0.45 K/uL 0.24-0.86 eos # (test code = eos #) 0.12 K/uL 0.04-0.36 basophil # (test code = basophil 0.05 K/uL 0.01-0.08 #) NRBC% (test code = NRBC%) 0 /100 WBC 0-0.2 NRBC# (test code = NRBC#) 0 K/uL [facility] HospitalComprehensive [facility] 2000 panel - Serum or [...] Serum or Plasma (test code = 6768-6) [facility] HospitalPT/[id number] 10:41:00 Test Item Value Reference Range Interpretation Comments prothrombin time (test code = 10.0 seconds 10.3-12.3 L prothrombin time) INR in Blood by Coagulation <0.94 assay (test code = 89280-6) [facility] HospitalDifferential panel, method unspecified - [id number] 00:00:00NeutrophilsBandLymphocyteAtypical LymphMonocyteEosinophilBasophilMyelocyteBlastsAbs Neutrophil Count(Man)Abs Lymph Count (Man)Abs Monocyte Count (Man)Abs Eosinophil Count (Man)Abs Basophil Count (Man)Platelet EstimatePlatelet MorphologyAnisocytosisMacrocytosisStomatocyteToxic GranulationMataMerit Health River RegionChoriogonadotropin ( test) [Presence] in Serum or [id number] 00:00:00 Test Item Value Reference Range Interpretation Comments Choriogonadotropin.beta subunit negative neg ( test) [Presence] in Serum or Plasma (test code = 2110-5) [facility] Hospitalpartial thromboplastin [id number] 00:00:00 Test Item Value Reference Range Interpretation Comments INR in Blood by Coagulation 27.6 seconds 22.5-37.0 assay (test code = 64839-2) [facility] HospitalInfluenza virus A and B and SARS-CoV+SARS-CoV-2 (COVID- 19) Ag panel - Upper respiratory specimen by Rapid [id number] 14:30:06 Test Item Value Reference Range Interpretation Comments RAPID SARS COV (test code = RAPID negative SARS COV) RAPID FLU A (test code = RAPID FLU negative A) RAPID FLU B (test code = RAPID FLU negative B) [facility] HospitalInfluenza virus A and B and SARS-CoV+SARS-CoV-2 (COVID- 19) Ag panel - Upper respiratory specimen by Rapid [id number] 14:30:06 Test Item Value Reference Range Interpretation Comments RAPID SARS COV (test code = RAPID negative SARS COV) RAPID FLU A (test code = RAPID FLU negative A) RAPID FLU B (test code = RAPID FLU negative B) [facility] HospitalInfluenza virus A and B and SARS-CoV+SARS-CoV-2 (COVID- 19) Ag panel - Upper respiratory specimen by Rapid [id number] 14:30:06 Test Item Value Reference Range Interpretation Comments RAPID SARS COV (test code = RAPID negative SARS COV) RAPID FLU A (test code = RAPID FLU negative A) RAPID FLU B (test code = RAPID FLU negative B) [facility] Hospitalrapid strep group A, [id number] 14:29:58 Test Item Value Reference Range Interpretation Comments Strep Result (test code = Strep positive Result) [facility], [id number] 14:29:58 Test Item Value Reference Range Interpretation Comments Strep Result (test code = Strep positive Result) [facility], [id number] 14:29:58 Test Item Value Reference Range Interpretation Comments Strep Result (test code = Strep positive Result) [facility], [id number] 15:38:01 Test Item Value Reference Range Interpretation Comments Strep Result (test code = Strep negative Result) [facility], [id number] 15:38:01 Test Item Value Reference Range Interpretation Comments Strep Result (test code = Strep negative Result) [facility], [id number] 15:38:01 Test Item Value Reference Range Interpretation Comments Strep Result (test code = Strep negative Result) [facility] strep group A, [id number] 15:38:01 Test Item Value Reference Range Interpretation Comments Strep Result (test code = Strep negative Result) [facility], [id number] 15:56:00 Test Item Value Reference Range Interpretation Comments Strep Result (test code = Strep positive Result) [facility], [id number] 15:56:00 Test Item Value Reference Range Interpretation Comments Strep Result (test code = Strep positive Result) [facility] HospitalUrinalysis macro (dipstick) panel - [id number] 15:37:27 Test Item Value Reference Range Interpretation Comments Leukocytes (test code = Leukocytes) Trace Nitrite (test code = Nitrite) negative Urobilinogen (test code = 1 Urobilinogen) Protein (test code = Protein) Negative pH (test code = pH) 7.0 Blood (test code = Blood) Negative Specific Holder[place] (test code = 1.020 Specific Holderness) Ketone (test code = Ketone) Negative Bilirubin (test code = Bilirubin) Negative Glucose (test code = Glucose) Negative Appearance (test code = Appearance) Clear Color (test code = Color) Yellow [facility] W Auto Differential panel - [id number] 12:16:00 Test Item Value Reference Range Interpretation Comments white blood count (test code = 7.3 K/uL 4.0-11.5 white blood count) red blood count (test code = red 5.06 M/uL 3.80-5.20 blood count) hemoglobin (test code = 12.5 g/dL 10.5-15.7 hemoglobin) hematocrit (test code = 41.3 % 34.0-50.0 hematocrit) Erythrocyte mean corpuscular 81.6 fL 86-100 L volume [Entitic volume] (test code = 49140-9) mean corpuscular hemoglobin (test 24.7 pg 26.2-33.4 [...] 44.4-80.1 leukocytes in Blood (test code = 48645-6) Granulocytes Immature [#/volume] 0.0 K/uL 0.0-0.03 in Blood (test code = 63525-4) lymphocyte% (test code = 37.9 % 10.0-50.0 lymphocyte%) mono % (test code = mono %) 7.4 % 3.6-12.0 eos % (test code = eos %) 3.0 % 0.0-5.4 Basophils/100 leukocytes in 0.5 % 0.1-1.2 Unspecified specimen (test code = 07852-1) Neutrophils.band form [#/volume] 3.73 K/uL 1.56-6.13 in Blood (test code = 06947-7) Lymphocytes [#/volume] in 2.8 K/uL 1.18-3.74 Unspecified specimen by Automated count (test code = 81064-0) mono # (test code = mono #) 0.54 K/uL 0.24-0.86 eos # (test code = eos #) 0.22 K/uL 0.04-0.36 basophil # (test code = basophil 0.04 K/uL 0.01-0.08 #) NRBC% (test code = NRBC%) 0 /100 WBC 0-0.2 NRBC# (test code = NRBC#) 0 K/uL [facility] Hospitaldifferential panel, [id number] 12:16:00 NeutrophilsLymphocyteAtypical LymphMonocyteEosinophilBasophilPlatelet EstimateDifferential comment-PMaTurning Point Mature Adult Care UnitChoriogonadotropin.beta subunit [Units/volume] in Serum or [id number] 12:16:00 Test Item Value Reference Range Interpretation Comments HCG quantitative (test code = HCG <0.1 0-5 quantitative) [facility] HospitalUrinalysis macro (dipstick) panel - [id number] 11:31:00 Test Item Value Reference Range Interpretation Comments Leukocytes (test code = Leukocytes) Large Nitrite (test code = Nitrite) negative Urobilinogen (test code = .2 Urobilinogen) Protein (test code = Protein) 30 pH (test code = pH) 8.0 Blood (test code = Blood) Small Specific Holderness (test code = 1.020 Specific Holder[place]) Ketone (test code = Ketone) Negative Bilirubin (test code = Bilirubin) Negative Glucose (test code = Glucose) Negative Appearance (test code = Appearance) Clear Color (test code = Color) Yellow [facility] HospitalUrinalysis macro (dipstick) panel - [id number] 11:31:00 Test Item Value Reference Range Interpretation Comments Leukocytes (test code = Leukocytes) Large Nitrite (test code = Nitrite) negative Urobilinogen (test code = .2 Urobilinogen) Protein (test code = Protein) 30 pH (test code = pH) 8.0 Blood (test code = Blood) Small Specific [place] (test code = 1.020 Specific [place]) Ketone (test code = Ketone) Negative Bilirubin (test code = Bilirubin) Negative Glucose (test code = Glucose) Negative Appearance (test code = Appearance) Clear Color (test code = Color) Yellow [facility] HospitalUrinalysis macro (dipstick) panel - [id number] 11:31:00 Test Item Value Reference Range Interpretation Comments Leukocytes (test code = Leukocytes) Large Nitrite (test code = Nitrite) negative Urobilinogen (test code = .2 Urobilinogen) Protein (test code = Protein) 30 pH (test code = pH) 8.0 Blood (test code = Blood) Small Specific [place] (test code = 1.020 Specific [place]) Ketone (test code = Ketone) Negative Bilirubin (test code = Bilirubin) Negative Glucose (test code = Glucose) Negative Appearance (test code = Appearance) Clear Color (test code = Color) Yellow [facility] W Auto Differential panel - [id number] 05:43:00 Test Item Value Reference Range Interpretation [...] L volume [Entitic volume] (test code = 93631-8) mean corpuscular hemoglobin (test 25.3 pg 26.2-33.4 [...] 44.4-80.1 leukocytes in Blood (test code = 34105-2) Granulocytes Immature [#/volume] 0.1 K/uL 0.0-0.03 H in Blood (test code = 80165-4) lymphocyte% (test code = 26.4 % 10.0-50.0 lymphocyte%) mono % (test code = mono %) 6.4 % 3.6-12.0 eos % (test code = eos %) 0.7 % 0.0-5.4 Basophils/100 leukocytes in 0.2 % 0.1-1.2 Unspecified specimen (test code = 42666-0) Neutrophils.band form [#/volume] 8.32 K/uL 1.56-6.13 H in Blood (test code = 35364-6) Lymphocytes [#/volume] in 3.3 K/uL 1.18-3.74 Unspecified specimen by Automated count (test code = 11555-3) mono # (test code = mono #) 0.81 K/uL 0.24-0.86 eos # (test code = eos #) 0.09 K/uL 0.04-0.36 basophil # (test code = basophil 0.03 K/uL 0.01-0.08 #) NRBC% (test code = NRBC%) 0 /100 WBC 0-0.2 NRBC# (test code = NRBC#) 0 K/uL [facility] W Auto Differential panel - [id number] 05:43:00 Test Item Value Reference Range Interpretation [...] L volume [Entitic volume] (test code = 00744-5) mean corpuscular hemoglobin (test 25.3 pg 26.2-33.4 [...] 44.4-80.1 leukocytes in Blood (test code = 54144-5) Granulocytes Immature [#/volume] 0.1 K/uL 0.0-0.03 H in Blood (test code = 51171-9) lymphocyte% (test code = 26.4 % 10.0-50.0 lymphocyte%) mono % (test code = mono %) 6.4 % 3.6-12.0 eos % (test code = eos %) 0.7 % 0.0-5.4 Basophils/100 leukocytes in 0.2 % 0.1-1.2 Unspecified specimen (test code = 57990-3) Neutrophils.band form [#/volume] 8.32 K/uL 1.56-6.13 H in Blood (test code = 00881-7) Lymphocytes [#/volume] in 3.3 K/uL 1.18-3.74 Unspecified specimen by Automated count (test code = 57125-3) mono # (test code = mono #) 0.81 K/uL 0.24-0.86 eos # (test code = eos #) 0.09 K/uL 0.04-0.36 basophil # (test code = basophil 0.03 K/uL 0.01-0.08 #) NRBC% (test code = NRBC%) 0 /100 WBC 0-0.2 NRBC# (test code = NRBC#) 0 K/uL [facility] W Auto Differential panel - [id number] 04:53:00 Test Item Value Reference Range Interpretation Comments white blood count (test code = 9.5 K/uL 4.0-11.5 white blood count) red blood count (test code = red 3.83 M/uL 3.80-5.20 blood count) hemoglobin (test code = 9.7 g/dL 10.5-15.7 L hemoglobin) hematocrit (test code = 31.4 % 34.0-50.0 L hematocrit) Erythrocyte mean corpuscular 82.0 fL 86-100 L volume [Entitic volume] (test code = 83235-8) mean corpuscular hemoglobin (test 25.3 pg 26.2-33.4 [...] 44.4-80.1 leukocytes in Blood (test code = 74956-7) Granulocytes Immature [#/volume] 0.1 K/uL 0.0-0.03 H in Blood (test code = 27084-5) lymphocyte% (test code = 30.9 % 10.0-50.0 lymphocyte%) mono % (test code = mono %) 7.2 % 3.6-12.0 eos % (test code = eos %) 0.3 % 0.0-5.4 Basophils/100 leukocytes in 0.2 % 0.1-1.2 Unspecified specimen (test code = 10993-9) Neutrophils.band form [#/volume] 5.77 K/uL 1.56-6.13 in Blood (test code = 09230-9) Lymphocytes [#/volume] in 2.9 K/uL 1.18-3.74 Unspecified specimen by Automated count (test code = 85963-9) mono # (test code = mono #) 0.68 K/uL 0.24-0.86 eos # (test code = eos #) 0.03 K/uL 0.04-0.36 L basophil # (test code = basophil 0.02 K/uL 0.01-0.08 #) NRBC% (test code = NRBC%) 0 /100 WBC 0-0.2 NRBC# (test code = NRBC#) 0 K/[facility]L [facility] Serum by [id number] 04:53:00 Test Item Value Reference Range Interpretation Comments Reagin Ab [Presence] in Serum by nonreactive nonreactive RPR (test code = 00001-6) [facility] HospitalHepatitis [facility] virus surface Ag [Presence] in Serum 2019-04-30 04:53:00 Test Item Value Reference Range Interpretation Comments .hepatitis B surface antigen (test negative negative code = .hepatitis B surface antigen) [facility] W Auto Differential panel - [id number] 04:53:00 Test Item Value Reference Range Interpretation Comments white blood count (test code = 9.5 K/uL 4.0-11.5 white blood count) red blood count (test code = red 3.83 M/uL 3.80-5.20 blood count) hemoglobin (test code = 9.7 g/dL 10.5-15.7 L hemoglobin) hematocrit (test code = 31.4 % 34.0-50.0 L hematocrit) Erythrocyte mean corpuscular 82.0 fL 86-100 L volume [Entitic volume] (test code = 93720-4) mean corpuscular hemoglobin (test 25.3 pg 26.2-33.4 [...] 44.4-80.1 leukocytes in Blood (test code = 33470-6) Granulocytes Immature [#/volume] 0.1 K/uL 0.0-0.03 H in Blood (test code = 51167-8) lymphocyte% (test code = 30.9 % 10.0-50.0 lymphocyte%) mono % (test code = mono %) 7.2 % 3.6-12.0 eos % (test code = eos %) 0.3 % 0.0-5.4 Basophils/100 leukocytes in 0.2 % 0.1-1.2 Unspecified specimen (test code = 42357-7) Neutrophils.band form [#/volume] 5.77 K/uL 1.56-6.13 in Blood (test code = 12929-8) Lymphocytes [#/volume] in 2.9 K/uL 1.18-3.74 Unspecified specimen by Automated count (test code = 82318-4) mono # (test code = mono #) 0.68 K/uL 0.24-0.86 eos # (test code = eos #) 0.03 K/uL 0.04-0.36 L basophil # (test code = basophil 0.02 K/uL 0.01-0.08 #) NRBC% (test code = NRBC%) 0 /100 WBC 0-0.2 NRBC# (test code = NRBC#) 0 K/uL [facility] in Serum by [id number] 04:53:00 Test Item Value Reference Range Interpretation Comments Reagin Ab [Presence] in Serum by nonreactive nonreactive RPR (test code = 54559-4) [facility] HospitalHep[facility] virus surface Ag [Presence] in Serum 2019-04-30 04:53:00 Test Item Value Reference Range Interpretation Comments .hepatitis B surface antigen (test negative negative code = .hepatitis B surface antigen) [facility] HospitalUrinalysis macro (dipstick) panel - [id number] 10:17:40 Test Item Value Reference Range Interpretation Comments Leukocytes (test code = Leukocytes) Trace Nitrite (test code = Nitrite) negative Urobilinogen (test code = .2 Urobilinogen) Protein (test code = Protein) Trace pH (test code = pH) 6.5 Blood (test code = Blood) Negative Specific Holderness (test code = 1.015 Specific Holderness) Ketone (test code = Ketone) Negative Bilirubin (test code = Bilirubin) Negative Glucose (test code = Glucose) Negative Appearance (test code = Appearance) Clear Color (test code = Color) Yellow [facility] HospitalUr[facility] macro (dipstick) panel - [id number] 10:17:40 Test Item Value Reference Range Interpretation Comments Leukocytes (test code = Leukocytes) Trace Nitrite (test code = Nitrite) negative Urobilinogen (test code = .2 Urobilinogen) Protein (test code = Protein) Trace pH (test code = pH) 6.5 Blood (test code = Blood) Negative Specific Holderness (test code = 1.015 Specific Holderness) Ketone (test code = Ketone) Negative Bilirubin (test code = Bilirubin) Negative Glucose (test code = Glucose) Negative Appearance (test code = Appearance) Clear Color (test code = Color) Yellow [facility] Hospital[facility] macro (dipstick) panel - [id number] 10:17:40 Test Item Value Reference Range Interpretation Comments Leukocytes (test code = Leukocytes) Trace Nitrite (test code = Nitrite) negative Urobilinogen (test code = .2 Urobilinogen) Protein (test code = Protein) Trace pH (test code = pH) 6.5 Blood (test code = Blood) Negative Specific Holderness (test code = 1.015 Specific Holderness) Ketone (test code = Ketone) Negative Bilirubin (test code = Bilirubin) Negative Glucose (test code = Glucose) Negative Appearance (test code = Appearance) Clear Color (test code = Color) Yellow [facility] Biophysical profile panel [id number] 10:06:43 Test Item Value Reference Range Interpretation Comments Amniotic Fluid Index (test code = 2 (14.5) Amniotic Fluid Index) Tone (test code = Tone) 2 Breathing (test code = 2 Breathing) Movement (test code = 2 Movement) Non-Stress Test (test code = 2 Non-Stress Test) [facility] Biophysical profile panel [id number] 10:06:43 Test Item Value Reference Range Interpretation Comments Amniotic Fluid Index (test code = 2 (14.5) Amniotic Fluid Index) Tone (test code = Tone) 2 Breathing (test code = 2 Breathing) Movement (test code = 2 Movement) Non-Stress Test (test code = 2 Non-Stress Test) [facility] Biophysical profile panel [id number] 10:06:43 Test Item Value Reference Range Interpretation Comments Amniotic Fluid Index (test code = 2 (14.5) Amniotic Fluid Index) Tone (test code = Tone) 2 Breathing (test code = 2 Breathing) Movement (test code = 2 Movement) Non-Stress Test (test code = 2 Non-Stress Test) [facility] macro (dipstick) panel - [id number] 11:37:00 Test Item Value Reference Range Interpretation Comments Leukocytes (test code = Leukocytes) Large Nitrite (test code = Nitrite) negative Urobilinogen (test code = 1 Urobilinogen) Protein (test code = Protein) Trace pH (test code = pH) 8.5 Blood (test code = Blood) Negative Specific Holderness (test code = 1.020 Specific Holderness) Ketone (test code = Ketone) Negative Bilirubin (test code = Bilirubin) Negative Glucose (test code = Glucose) Negative Appearance (test code = Appearance) Clear Color (test code = Color) Yellow [facility] HospitalUr[facility]ysis macro (dipstick) panel - [id number] 11:37:00 Test Item Value Reference Range Interpretation Comments Leukocytes (test code = Leukocytes) Large Nitrite (test code = Nitrite) negative Urobilinogen (test code = 1 Urobilinogen) Protein (test code = Protein) Trace pH (test code = pH) 8.5 Blood (test code = Blood) Negative Specific Holderness (test code = 1.020 Specific Holderness) Ketone (test code = Ketone) Negative Bilirubin (test code = Bilirubin) Negative Glucose (test code = Glucose) Negative Appearance (test code = Appearance) Clear Color (test code = Color) Yellow [facility] HospitalUr[facility]ysis macro (dipstick) panel - [id number] 11:37:00 Test Item Value Reference Range Interpretation Comments Leukocytes (test code = Leukocytes) Large Nitrite (test code = Nitrite) negative Urobilinogen (test code = 1 Urobilinogen) Protein (test code = Protein) Trace pH (test code = pH) 8.5 Blood (test code = Blood) Negative Specific Holderness (test code = 1.020 Specific Holderness) Ketone (test code = Ketone) Negative Bilirubin (test code = Bilirubin) Negative Glucose (test code = Glucose) Negative Appearance (test code = Appearance) Clear Color (test code = Color) Yellow [facility] HospitalUr[facility]ysis macro (dipstick) panel - [id number] 11:37:00 Test Item Value Reference Range Interpretation Comments Leukocytes (test code = Leukocytes) Large Nitrite (test code = Nitrite) negative Urobilinogen (test code = 1 Urobilinogen) Protein (test code = Protein) Trace pH (test code = pH) 8.5 Blood (test code = Blood) Negative Specific Holderness (test code = 1.020 Specific Holderness) Ketone (test code = Ketone) Negative Bilirubin (test code = Bilirubin) Negative Glucose (test code = Glucose) Negative Appearance (test code = Appearance) Clear Color (test code = Color) Yellow [facility] HospitalUr[facility]ysis macro (dipstick) panel - [id number] 11:37:00 Test Item Value Reference Range Interpretation Comments Leukocytes (test code = Leukocytes) Large Nitrite (test code = Nitrite) negative Urobilinogen (test code = 1 Urobilinogen) Protein (test code = Protein) Trace pH (test code = pH) 8.5 Blood (test code = Blood) Negative Specific Holderness (test code = 1.020 Specific Holderness) Ketone (test code = Ketone) Negative Bilirubin (test code = Bilirubin) Negative Glucose (test code = Glucose) Negative Appearance (test code = Appearance) Clear Color (test code = Color) Yellow [facility] Biophysical profile panel [id number] 11:06:57 Test Item Value Reference Range Interpretation Comments Amniotic Fluid Index (test code = 2 (14.6) Amniotic Fluid Index) Tone (test code = Tone) 2 Breathing (test code = 2 Breathing) Movement (test code = 2 Movement) Non-Stress Test (test code = 2 Non-Stress Test) [facility] Biophysical profile panel [id number] 11:06:57 Test Item Value Reference Range Interpretation Comments Amniotic Fluid Index (test code = 2 (14.6) Amniotic Fluid Index) Tone (test code = Tone) 2 Breathing (test code = 2 Breathing) Movement (test code = 2 Movement) Non-Stress Test (test code = 2 Non-Stress Test) [facility] Biophysical profile panel [id number] 11:06:57 Test Item Value Reference Range Interpretation Comments Amniotic Fluid Index (test code = 2 (14.6) Amniotic Fluid Index) Tone (test code = Tone) 2 Breathing (test code = 2 Breathing) Movement (test code = 2 Movement) Non-Stress Test (test code = 2 Non-Stress Test) [facility] Biophysical profile panel [id number] 11:06:57 Test Item Value Reference Range Interpretation Comments Amniotic Fluid Index (test code = 2 (14.6) Amniotic Fluid Index) Tone (test code = Tone) 2 Breathing (test code = 2 Breathing) Movement (test code = 2 Movement) Non-Stress Test (test code = 2 Non-Stress Test) [facility] Biophysical profile panel [id number] 11:06:57 Test Item Value Reference Range Interpretation Comments Amniotic Fluid Index (test code = 2 (14.6) Amniotic Fluid Index) Tone (test code = Tone) 2 Breathing (test code = 2 Breathing) Movement (test code = 2 Movement) Non-Stress Test (test code = 2 Non-Stress Test) [facility] macro (dipstick) panel - [id number] 15:44:30 Test Item Value Reference Range Interpretation Comments Leukocytes (test code = Small Leukocytes) Nitrite (test code = Nitrite) negative Urobilinogen (test code = 2 Urobilinogen) Protein (test code = Protein) 30 pH (test code = pH) 8.0 Blood (test code = Blood) Negative Specific Holderness (test code = 1.020 Specific Holderness) Ketone (test code = Ketone) Negative Bilirubin (test code = Bilirubin) Small Glucose (test code = Glucose) Negative Appearance (test code = Clear Appearance) Color (test code = Color) Dark Yellow [facility] HospitalUr[facility]ysis macro (dipstick) panel - [id number] 15:44:30 Test Item Value Reference Range Interpretation Comments Leukocytes (test code = Small Leukocytes) Nitrite (test code = Nitrite) negative Urobilinogen (test code = 2 Urobilinogen) Protein (test code = Protein) 30 pH (test code = pH) 8.0 Blood (test code = Blood) Negative Specific Holderness (test code = 1.020 Specific Holderness) Ketone (test code = Ketone) Negative Bilirubin (test code = Bilirubin) Small Glucose (test code = Glucose) Negative Appearance (test code = Clear Appearance) Color (test code = Color) Dark Yellow [facility] HospitalUr[facility]ysis macro (dipstick) panel - [id number] 15:44:30 Test Item Value Reference Range Interpretation Comments Leukocytes (test code = Small Leukocytes) Nitrite (test code = Nitrite) negative Urobilinogen (test code = 2 Urobilinogen) Protein (test code = Protein) 30 pH (test code = pH) 8.0 Blood (test code = Blood) Negative Specific Holderness (test code = 1.020 Specific Holderness) Ketone (test code = Ketone) Negative Bilirubin (test code = Bilirubin) Small Glucose (test code = Glucose) Negative Appearance (test code = Clear Appearance) Color (test code = Color) Dark Yellow [facility] HospitalUr[facility] macro (dipstick) panel - [id number] 15:44:30 Test Item Value Reference Range Interpretation Comments Leukocytes (test code = Small Leukocytes) Nitrite (test code = Nitrite) negative Urobilinogen (test code = 2 Urobilinogen) Protein (test code = Protein) 30 pH (test code = pH) 8.0 Blood (test code = Blood) Negative Specific Holderness (test code = 1.020 Specific Holderness) Ketone (test code = Ketone) Negative Bilirubin (test code = Bilirubin) Small Glucose (test code = Glucose) Negative Appearance (test code = Clear Appearance) Color (test code = Color) Dark Yellow [facility] HospitalUr[facility] macro (dipstick) panel - [id number] 15:44:30 Test Item Value Reference Range Interpretation Comments Leukocytes (test code = Small Leukocytes) Nitrite (test code = Nitrite) negative Urobilinogen (test code = 2 Urobilinogen) Protein (test code = Protein) 30 pH (test code = pH) 8.0 Blood (test code = Blood) Negative Specific Holderness (test code = 1.020 Specific Holderness) Ketone (test code = Ketone) Negative Bilirubin (test code = Bilirubin) Small Glucose (test code = Glucose) Negative Appearance (test code = Clear Appearance) Color (test code = Color) Dark Yellow [facility] HospitalUr[facility]ysis macro (dipstick) panel - [id number] 15:44:30 Test Item Value Reference Range Interpretation Comments Leukocytes (test code = Small Leukocytes) Nitrite (test code = Nitrite) negative Urobilinogen (test code = 2 Urobilinogen) Protein (test code = Protein) 30 pH (test code = pH) 8.0 Blood (test code = Blood) Negative Specific Holderness (test code = 1.020 Specific Holderness) Ketone (test code = Ketone) Negative Bilirubin (test code = Bilirubin) Small Glucose (test code = Glucose) Negative Appearance (test code = Clear Appearance) Color (test code = Color) Dark Yellow [facility] Bi[facility] profile panel [id number] 15:38:02 Test Item Value Reference Range Interpretation Comments Amniotic Fluid Index (test code = 2 (15.5) Amniotic Fluid Index) Tone (test code = Tone) 2 Breathing (test code = 2 Breathing) Movement (test code = 2 Movement) Non-Stress Test (test code = 2 Non-Stress Test) [facility] Biophysical profile panel [id number] 15:38:02 Test Item Value Reference Range Interpretation Comments Amniotic Fluid Index (test code = 2 (15.5) Amniotic Fluid Index) Tone (test code = Tone) 2 Breathing (test code = 2 Breathing) Movement (test code = 2 Movement) Non-Stress Test (test code = 2 Non-Stress Test) [facility] Biophysical profile panel [id number] 15:38:02 Test Item Value Reference Range Interpretation Comments Amniotic Fluid Index (test code = 2 (15.5) Amniotic Fluid Index) Tone (test code = Tone) 2 Breathing (test code = 2 Breathing) Movement (test code = 2 Movement) Non-Stress Test (test code = 2 Non-Stress Test) [facility] Biophysical profile panel [id number] 15:38:02 Test Item Value Reference Range Interpretation Comments Amniotic Fluid Index (test code = 2 (15.5) Amniotic Fluid Index) Tone (test code = Tone) 2 Breathing (test code = 2 Breathing) Movement (test code = 2 Movement) Non-Stress Test (test code = 2 Non-Stress Test) [facility] Biophysical profile panel [id number] 15:38:02 Test Item Value Reference Range Interpretation Comments Amniotic Fluid Index (test code = 2 (15.5) Amniotic Fluid Index) Tone (test code = Tone) 2 Breathing (test code = 2 Breathing) Movement (test code = 2 Movement) Non-Stress Test (test code = 2 Non-Stress Test) [facility] Biophysical profile panel [id number] 15:38:02 Test Item Value Reference Range Interpretation Comments Amniotic Fluid Index (test code = 2 (15.5) Amniotic Fluid Index) Tone (test code = Tone) 2 Breathing (test code = 2 Breathing) Movement (test code = 2 Movement) Non-Stress Test (test code = 2 Non-Stress Test) [facility] Biophysical profile panel [id number] 09:23:00 Test Item Value Reference Range Interpretation Comments Amniotic Fluid Index (test code = 2 (15.4) Amniotic Fluid Index) Tone (test code = Tone) 2 Breathing (test code = 2 Breathing) Movement (test code = 2 Movement) [facility] Biophysical profile panel [id number] 09:23:00 Test Item Value Reference Range Interpretation Comments Amniotic Fluid Index (test code = 2 (15.4) Amniotic Fluid Index) Tone (test code = Tone) 2 Breathing (test code = 2 Breathing) Movement (test code = 2 Movement) [facility] Biophysical profile panel [id number] 09:23:00 Test Item Value Reference Range Interpretation Comments Amniotic Fluid Index (test code = 2 (15.4) Amniotic Fluid Index) Tone (test code = Tone) 2 Breathing (test code = 2 Breathing) Movement (test code = 2 Movement) [facility] Biophysical profile panel [id number] 09:23:00 Test Item Value Reference Range Interpretation Comments Amniotic Fluid Index (test code = 2 (15.4) Amniotic Fluid Index) Tone (test code = Tone) 2 Breathing (test code = 2 Breathing) Movement (test code = 2 Movement) [facility] Biophysical profile panel [id number] 11:41:00 Test Item Value Reference Range Interpretation Comments Amniotic Fluid Index (test code = 2 (13.3) Amniotic Fluid Index) Tone (test code = Tone) 2 Breathing (test code = 2 Breathing) Movement (test code = 2 Movement) [facility] Biophysical profile panel [id number] 11:41:00 Test Item Value Reference Range Interpretation Comments Amniotic Fluid Index (test code = 2 (13.3) Amniotic Fluid Index) Tone (test code = Tone) 2 Breathing (test code = 2 Breathing) Movement (test code = 2 Movement) [facility] Biophysical profile panel [id number] 11:41:00 Test Item Value Reference Range Interpretation Comments Amniotic Fluid Index (test code = 2 (13.3) Amniotic Fluid Index) Tone (test code = Tone) 2 Breathing (test code = 2 Breathing) Movement (test code = 2 Movement) [facility] Biophysical profile panel [id number] 11:41:00 Test Item Value Reference Range Interpretation Comments Amniotic Fluid Index (test code = 2 (13.3) Amniotic Fluid Index) Tone (test code = Tone) 2 Breathing (test code = 2 Breathing) Movement (test code = 2 Movement) [facility] Biophysical profile panel [id number] 11:59:00 Test Item Value Reference Range Interpretation Comments Amniotic Fluid Index (test code = 2 (12.2) Amniotic Fluid Index) Tone (test code = Tone) 2 Breathing (test code = 2 Breathing) Movement (test code = 2 Movement) [facility] Biophysical profile panel [id number] 11:59:00 Test Item Value Reference Range Interpretation Comments Amniotic Fluid Index (test code = 2 (12.2) Amniotic Fluid Index) Tone (test code = Tone) 2 Breathing (test code = 2 Breathing) Movement (test code = 2 Movement) [facility] Biophysical profile panel [id number] 11:59:00 Test Item Value Reference Range Interpretation Comments Amniotic Fluid Index (test code = 2 (12.2) Amniotic Fluid Index) Tone (test code = Tone) 2 Breathing (test code = 2 Breathing) Movement (test code = 2 Movement) [facility] Biophysical profile panel [id number] 11:59:00 Test Item Value Reference Range Interpretation Comments Amniotic Fluid Index (test code = 2 (12.2) Amniotic Fluid Index) Tone (test code = Tone) 2 Breathing (test code = 2 Breathing) Movement (test code = 2 Movement) [facility] Biophysical profile panel [id number] 11:59:00 Test Item Value Reference Range Interpretation Comments Amniotic Fluid Index (test code = 2 (12.2) Amniotic Fluid Index) Tone (test code = Tone) 2 Breathing (test code = 2 Breathing) Movement (test code = 2 Movement) [facility] Urine by [id number] 10:18:00 Test Item Value Reference Range Interpretation Comments Bacteria identified in no growth after 2 Urine by Culture (test days code = 630-4) [facility] identified [facility] Urine by [id number] 10:18:00 Test Item Value Reference Range Interpretation Comments Bacteria identified in no growth after 2 Urine by Culture (test days code = 630-4) [facility] identified in Urine by [id number] 10:18:00 Test Item Value Reference Range Interpretation Comments Bacteria identified in no growth after 2 Urine by Culture (test days code = 630-4) [facility] identified in Urine by [id number] 10:18:00 Test Item Value Reference Range Interpretation Comments Bacteria identified in no growth after 2 Urine by Culture (test days code = 630-4) [facility] GroupGlucose [Mass/volume] in Serum or Plasma --1 hour post dose [id number] 12:27:00 Test Item Value Reference Range Interpretation Comments Results (test code = Results) 152-Fail [facility] GroupGlucose [Mass/volume] in Serum or Plasma --1 hour post dose [id number] 12:27:00 Test Item Value Reference Range Interpretation Comments Results (test code = Results) 152-Fail [facility] GroupGlucose [Mass/volume] in Serum or Plasma --1 hour post dose [id number] 12:27:00 Test Item Value Reference Range Interpretation Comments Results (test code = Results) 152-Fail [facility] GroupGlucose [Mass/volume] in Serum or Plasma --1 hour post dose [id number] 12:27:00 Test Item Value Reference Range Interpretation Comments Results (test code = Results) 152-Fail [facility] GroupGlucose [Mass/volume] in Serum or Plasma --1 hour post dose [id number] 12:27:00 Test Item Value Reference Range Interpretation Comments Results (test code = Results) 152-Fail [facility] GroupCBC W Auto Differential panel - [id number] 11:08:00 Test Item Value Reference Range Interpretation Comments white blood count (test code = 14.1 K/uL 4.0-11.5 H white blood count) red blood count (test code = red 4.04 M/uL 3.80-5.20 blood count) hemoglobin (test code = 11.1 g/dL 10.5-15.7 hemoglobin) hematocrit (test code = 35.1 % 34.0-50.0 hematocrit) Erythrocyte mean corpuscular 86.9 fL 86-100 volume [Entitic volume] (test code = 63679-7) mean corpuscular hemoglobin (test 27.5 pg 26.2-33.4 [...] H leukocytes in Blood (test code = 92642-7) Granulocytes Immature [#/volume] 0.1 K/uL 0.0-0.03 H in Blood (test code = 33902-2) lymphocyte% (test code = 10.7 % 10.0-50.0 lymphocyte%) mono % (test code = mono %) 4.0 % 3.6-12.0 eos % (test code = eos %) 0.1 % 0.0-5.4 Basophils/100 leukocytes in 0.1 % 0.1-1.2 Unspecified specimen (test code = 75160-5) Neutrophils.band form [#/volume] 11.91 K/uL 1.56-6.13 H in Blood (test code = 04651-0) Lymphocytes [#/volume] in 1.5 K/uL 1.18-3.74 Unspecified specimen by Automated count (test code = 73940-3) mono # (test code = mono #) 0.56 K/uL 0.24-0.86 eos # (test code = eos #) 0.01 K/uL 0.04-0.36 L basophil # (test code = basophil 0.02 K/uL 0.01-0.08 #) NRBC% (test code = NRBC%) 0 /100 WBC 0-0.2 NRBC# (test code = NRBC#) 0 K/uL [facility], [id number] 11:08:00 NeutrophilsBandLymphocyteMonocytePlatelet EstimateM[facility]Mer[facility] RegionBlood group antibody screen [Presence] in Serum or [id number] 11:08:00 Test Item Value Reference Range Interpretation Comments Blood group antibody screen negative [Presence] in Serum or Plasma (test code = 890-4) [facility]CB W Auto Differential panel - [id number] 11:08:00 Test Item Value Reference Range Interpretation Comments white blood count (test code = 14.1 K/uL 4.0-11.5 H white blood count) red blood count (test code = red 4.04 M/uL 3.80-5.20 blood count) hemoglobin (test code = 11.1 g/dL 10.5-15.7 hemoglobin) hematocrit (test code = 35.1 % 34.0-50.0 hematocrit) Erythrocyte mean corpuscular 86.9 fL 86-100 volume [Entitic volume] (test code = 24551-9) mean corpuscular hemoglobin (test 27.5 pg 26.2-33.4 [...] H leukocytes in Blood (test code = 98473-5) Granulocytes Immature [#/volume] 0.1 K/uL 0.0-0.03 H in Blood (test code = 26776-3) lymphocyte% (test code = 10.7 % 10.0-50.0 lymphocyte%) mono % (test code = mono %) 4.0 % 3.6-12.0 eos % (test code = eos %) 0.1 % 0.0-5.4 Basophils/100 leukocytes in 0.1 % 0.1-1.2 Unspecified specimen (test code = 32509-8) Neutrophils.band form [#/volume] 11.91 K/uL 1.56-6.13 H in Blood (test code = 45654-3) Lymphocytes [#/volume] in 1.5 K/uL 1.18-3.74 Unspecified specimen by Automated count (test code = 85598-5) mono # (test code = mono #) 0.56 K/uL 0.24-0.86 eos # (test code = eos #) 0.01 K/uL 0.04-0.36 L basophil # (test code = basophil 0.02 K/uL 0.01-0.08 #) NRBC% (test code = NRBC%) 0 /100 WBC 0-0.2 NRBC# (test code = NRBC#) 0 K/uL [facility], [id number] 11:08:00 NeutrophilsBandLymphocyteMonocytePlatelet EstimateBeacham Memorial HospitalBlood group antibody screen [Presence] in Serum or [id number] 11:08:00 Test Item Value Reference Range Interpretation Comments Blood group antibody screen negative [Presence] in Serum or Plasma (test code = 890-4) [facility] HospitalHIV 1+2 Ab [Presence] in [id number] 11:08:00HIV P24 AgHIV-1/2 AbMaTurning Point Mature Adult Care UnitReagin Ab [Presence] in Serum by RPR 2019-03-09 11:08:00 Test Item Value Reference Range Interpretation Comments Reagin Ab [Presence] in Serum by nonreactive nonreactive RPR (test code = 05573-7) [facility] HospitalCB W Auto Differential panel - [id number] 11:08:00 Test Item Value Reference Range Interpretation Comments white blood count (test code = 14.1 K/uL 4.0-11.5 H white blood count) red blood count (test code = red 4.04 M/uL 3.80-5.20 blood count) hemoglobin (test code = 11.1 g/dL 10.5-15.7 hemoglobin) hematocrit (test code = 35.1 % 34.0-50.0 hematocrit) Erythrocyte mean corpuscular 86.9 fL 86-100 volume [Entitic volume] (test code = 83831-6) mean corpuscular hemoglobin (test 27.5 pg 26.2-33.4 [...] H leukocytes in Blood (test code = 22844-5) Granulocytes Immature [#/volume] 0.1 K/uL 0.0-0.03 H in Blood (test code = 95021-3) lymphocyte% (test code = 10.7 % 10.0-50.0 lymphocyte%) mono % (test code = mono %) 4.0 % 3.6-12.0 eos % (test code = eos %) 0.1 % 0.0-5.4 Basophils/100 leukocytes in 0.1 % 0.1-1.2 Unspecified specimen (test code = 19800-2) Neutrophils.band form [#/volume] 11.91 K/uL 1.56-6.13 H in Blood (test code = 27728-7) Lymphocytes [#/volume] in 1.5 K/uL 1.18-3.74 Unspecified specimen by Automated count (test code = 87877-0) mono # (test code = mono #) 0.56 K/uL 0.24-0.86 eos # (test code = eos #) 0.01 K/uL 0.04-0.36 L basophil # (test code = basophil 0.02 K/uL 0.01-0.08 #) NRBC% (test code = NRBC%) 0 /100 WBC 0-0.2 NRBC# (test code = NRBC#) 0 K/uL [facility], [id number] 11:08:00 NeutrophilsBandLymphocyteMonocytePlatelet EstimateBeacham [facility] HospitalBlood group antibody screen [Presence] in Serum or [id number] 11:08:00 Test Item Value Reference Range Interpretation Comments Blood group antibody screen negative [Presence] in Serum or Plasma (test code = 890-4) [facility] HospitalHIV 1+2 Ab [Presence] in [id number] 11:08:00HIV P24 AgHIV-1/2 AbMaTurning Point Mature Adult Care UnitReagin Ab [Presence] in Serum by RPR 2019-03-09 11:08:00 Test Item Value Reference Range Interpretation Comments Reagin Ab [Presence] in Serum by nonreactive nonreactive RPR (test code = 61332-1) [facility] HospitalCB W Auto Differential panel - [id number] 11:08:00 Test Item Value Reference Range Interpretation Comments white blood count (test code = 14.1 K/uL 4.0-11.5 H white blood count) red blood count (test code = red 4.04 M/uL 3.80-5.20 blood count) hemoglobin (test code = 11.1 g/dL 10.5-15.7 hemoglobin) hematocrit (test code = 35.1 % 34.0-50.0 hematocrit) Erythrocyte mean corpuscular 86.9 fL 86-100 volume [Entitic volume] (test code = 21780-5) mean corpuscular hemoglobin (test 27.5 pg 26.2-33.4 [...] H leukocytes in Blood (test code = 85797-4) Granulocytes Immature [#/volume] 0.1 K/uL 0.0-0.03 H in Blood (test code = 53682-8) lymphocyte% (test code = 10.7 % 10.0-50.0 lymphocyte%) mono % (test code = mono %) 4.0 % 3.6-12.0 eos % (test code = eos %) 0.1 % 0.0-5.4 Basophils/100 leukocytes in 0.1 % 0.1-1.2 Unspecified specimen (test code = 27207-2) Neutrophils.band form [#/volume] 11.91 K/uL 1.56-6.13 H in Blood (test code = 27578-0) Lymphocytes [#/volume] in 1.5 K/uL 1.18-3.74 Unspecified specimen by Automated count (test code = 55073-3) mono # (test code = mono #) 0.56 K/uL 0.24-0.86 eos # (test code = eos #) 0.01 K/uL 0.04-0.36 L basophil # (test code = basophil 0.02 K/uL 0.01-0.08 #) NRBC% (test code = NRBC%) 0 /100 WBC 0-0.2 NRBC# (test code = NRBC#) 0 K/uL [facility] Hospitaldifferential panel, [id number] 11:08:00 NeutrophilsBandLymphocyteMonocytePlatelet EstimateMaTurning Point Mature Adult Care UnitBlood group antibody screen [Presence] in Serum or [id number] 11:08:00 Test Item Value Reference Range Interpretation Comments Blood group antibody screen negative [Presence] in Serum or Plasma (test code = 890-4) [facility] HospitalHIV 1+2 Ab [Presence] in [id number] 11:08:00HIV P24 AgHIV-1/2 AbMaTurning Point Mature Adult Care UnitReagin Ab [Presence] in Serum by RPR 2019-03-09 11:08:00 Test Item Value Reference Range Interpretation Comments Reagin Ab [Presence] in Serum by nonreactive nonreactive RPR (test code = 02859-2) [facility] HospitalCB W Auto Differential panel - [id number] 11:08:00 Test Item Value Reference Range Interpretation Comments white blood count (test code = 14.1 K/uL 4.0-11.5 H white blood count) red blood count (test code = red 4.04 M/uL 3.80-5.20 blood count) hemoglobin (test code = 11.1 g/dL 10.5-15.7 hemoglobin) hematocrit (test code = 35.1 % 34.0-50.0 hematocrit) Erythrocyte mean corpuscular 86.9 fL 86-100 volume [Entitic volume] (test code = 11706-9) mean corpuscular hemoglobin (test 27.5 pg 26.2-33.4 [...] H leukocytes in Blood (test code = 36156-5) Granulocytes Immature [#/volume] 0.1 K/uL 0.0-0.03 H in Blood (test code = 94695-7) lymphocyte% (test code = 10.7 % 10.0-50.0 lymphocyte%) mono % (test code = mono %) 4.0 % 3.6-12.0 eos % (test code = eos %) 0.1 % 0.0-5.4 Basophils/100 leukocytes in 0.1 % 0.1-1.2 Unspecified specimen (test code = 31386-3) Neutrophils.band form [#/volume] 11.91 K/uL 1.56-6.13 H in Blood (test code = 33726-8) Lymphocytes [#/volume] in 1.5 K/uL 1.18-3.74 Unspecified specimen by Automated count (test code = 27462-0) mono # (test code = mono #) 0.56 K/uL 0.24-0.86 eos # (test code = eos #) 0.01 K/uL 0.04-0.36 L basophil # (test code = basophil 0.02 K/uL 0.01-0.08 #) NRBC% (test code = NRBC%) 0 /100 WBC 0-0.2 NRBC# (test code = NRBC#) 0 K/uL [facility]different[facility], [id number] 11:08:00 NeutrophilsBandLymphocyteMonocytePlatelet EstimateMaAspirus [facility]ics GroupBlood group antibody screen [Presence] in Serum or [id number] 11:08:00 Test Item Value Reference Range Interpretation Comments Blood group antibody screen negative [Presence] in Serum or Plasma (test code = 890-4) [facility] GroupHIV 1+2 Ab [Presence] in [id number] 11:08:00HIV P24 AgHIV-1/2 AbMaAspirus Riverview Hospital and Clinics GroupReagin Ab [Presence] in Serum by RPR 2019-03-09 11:08:00 Test Item Value Reference Range Interpretation Comments Reagin Ab [Presence] in Serum by nonreactive nonreactive RPR (test code = 03690-8) [facility] GroupChlamydia trachomatis+Neisseria gonorrhoeae DNA [Presence] in Cervix by Probe and target amplification [id number] 10:54:00 ResultsMataday [facility] hospitala Medical GroupMicroscopic observation [Identifier] in Cervix by Cyto stain.thin [id number] 10:54:00ResultsMatarda Medical GroupChlamydia trachomatis+Neisseria gonorrhoeae DNA [Presence] in Cervix by Probe and target amplification [id number] 10:54:00ResultsMatagorda Medical GroupMicroscopic observation [Identifier] in Cervix by Cyto stain.thin [id number] 10:54:00 ResultsMatarda Medical GroupChlamydia trachomatis+Neisseria gonorrhoeae DNA [Presence] in Cervix by Probe and target amplification [id number] 10:54:00 ResultsMatarda Medical GroupMicroscopic observation [Identifier] in Cervix by Cyto stain.thin [id number] 10:54:00ResultsMatarda Medical GroupChlamydia trachomatis+Neisseria gonorrhoeae DNA [Presence] in Cervix by Probe and target amplification [id number] 10:54:00ResultsBeacham Memorial HospitalMicroscopic observation [Identifier] in Cervix by Cyto stain.thin [id number] 10:54:00 ResultsMaTurning Point Mature Adult Care UnitUrinalysis macro (dipstick) panel - Urine 2019-03-04 15:32:00 Test Item Value Reference Range Interpretation Comments Leukocytes (test code = Moderate Leukocytes) Nitrite (test code = negative Nitrite) Urobilinogen (test code = .2 Urobilinogen) Protein (test code = Trace Protein) pH (test code = pH) 7.0 Blood (test code = Blood) Non-Hemolyzed: Trace Specific Holderness (test 1.020 code = Specific Holderness) Ketone (test code = Trace Ketone) Bilirubin (test code = Negative Bilirubin) Glucose (test code = Negative Glucose) Appearance (test code = Clear Appearance) Color (test code = Color) Yellow [facility] HospitalUrinalysis macro (dipstick) panel - [id number] 15:32:00 Test Item Value Reference Range Interpretation Comments Leukocytes (test code = Moderate Leukocytes) Nitrite (test code = negative Nitrite) Urobilinogen (test code = .2 Urobilinogen) Protein (test code = Trace Protein) pH (test code = pH) 7.0 Blood (test code = Blood) Non-Hemolyzed: Trace Specific Holderness (test 1.020 code = Specific Holderness) Ketone (test code = Trace Ketone) Bilirubin (test code = Negative Bilirubin) Glucose (test code = Negative Glucose) Appearance (test code = Clear Appearance) Color (test code = Color) Yellow [facility] HospitalUrinalysis macro (dipstick) panel - [id number] 15:32:00 Test Item Value Reference Range Interpretation Comments Leukocytes (test code = Moderate Leukocytes) Nitrite (test code = negative Nitrite) Urobilinogen (test code = .2 Urobilinogen) Protein (test code = Trace Protein) pH (test code = pH) 7.0 Blood (test code = Blood) Non-Hemolyzed: Trace Specific Holderness (test 1.020 code = Specific Holderness) Ketone (test code = Trace Ketone) Bilirubin (test code = Negative Bilirubin) Glucose (test code = Negative Glucose) Appearance (test code = Clear Appearance) Color (test code = Color) Yellow [facility] HospitalUrinalysis macro (dipstick) panel - [id number] 15:32:00 Test Item Value Reference Range Interpretation Comments Leukocytes (test code = Moderate Leukocytes) Nitrite (test code = negative Nitrite) Urobilinogen (test code = .2 Urobilinogen) Protein (test code = Trace Protein) pH (test code = pH) 7.0 Blood (test code = Blood) Non-Hemolyzed: Trace Specific Holderness (test 1.020 code = Specific Holderness) Ketone (test code = Trace Ketone) Bilirubin (test code = Negative Bilirubin) Glucose (test code = Negative Glucose) Appearance (test code = Clear Appearance) Color (test code = Color) Yellow [facility] HospitalUrinalysis macro (dipstick) panel - [id number] 15:32:00 Test Item Value Reference Range Interpretation Comments Leukocytes (test code = Moderate Leukocytes) Nitrite (test code = negative Nitrite) Urobilinogen (test code = .2 Urobilinogen) Protein (test code = Trace Protein) pH (test code = pH) 7.0 Blood (test code = Blood) Non-Hemolyzed: Trace Specific Holderness (test 1.020 code = Specific Holderness) Ketone (test code = Trace Ketone) Bilirubin (test code = Negative Bilirubin) Glucose (test code = Negative Glucose) Appearance (test code = Clear Appearance) Color (test code = Color) Yellow [facility] HospitalUrinalysis macro (dipstick) panel - [id number] 15:32:00 Test Item Value Reference Range Interpretation Comments Leukocytes (test code = Moderate Leukocytes) Nitrite (test code = negative Nitrite) Urobilinogen (test code = .2 Urobilinogen) Protein (test code = Trace Protein) pH (test code = pH) 7.0 Blood (test code = Blood) Non-Hemolyzed: Trace Specific Holderness (test 1.020 code = Specific Holderness) Ketone (test code = Trace Ketone) Bilirubin (test code = Negative Bilirubin) Glucose (test code = Negative Glucose) Appearance (test code = Clear Appearance) Color (test code = Color) [facility]CB [facility] Auto Differential panel - [id number] 12:35:00 Test Item Value Reference Range Interpretation Comments white blood count (test code = 12.4 K/uL 4.0-11.5 white blood count) red blood count (test code = red 3.63 M/uL 3.80-5.20 L blood count) hemoglobin (test code = 10.0 g/dL 10.5-15.7 L hemoglobin) hematocrit (test code = 31.4 % 34.0-50.0 hematocrit) Erythrocyte mean corpuscular 86.5 fL 86-100 volume [Entitic volume] (test code = 41045-4) mean corpuscular hemoglobin (test 27.5 pg 26.2-33.4 [...] 44.4-80.1 leukocytes in Blood (test code = 47727-6) Granulocytes Immature [#/volume] 0.1 K/uL 0.0-0.03 H in Blood (test code = 93616-1) lymphocyte% (test code = 15.7 % 10.0-50.0 lymphocyte%) mono % (test code = mono %) 5.7 % 3.6-12.0 eos % (test code = eos %) 0.3 % 0.0-5.4 Basophils/100 leukocytes in 0.2 % 0.1-1.2 Unspecified specimen (test code = 31603-1) Neutrophils.band form [#/volume] 9.61 K/uL 1.56-6.13 H in Blood (test code = 19974-7) Lymphocytes [#/volume] in 1.9 K/uL 1.18-3.74 Unspecified specimen by Automated count (test code = 28495-7) mono # (test code = mono #) 0.70 K/uL 0.24-0.86 eos # (test code = eos #) 0.04 K/uL 0.04-0.36 basophil # (test code = basophil 0.02 K/uL 0.01-0.08 #) NRBC% (test code = NRBC%) 0 /100 WBC 0-0.2 NRBC# (test code = NRBC#) 0 K/uL [facility] GroupHIV 1+2 Ab [Presence] in [id number] 12:35:00HIV P24 AgHIV-1/2 AbMataMayo Memorial Hospital GroupABO & Rh group [Type] in [id number] 12:35:00 Test Item Value Reference Range Interpretation Comments Rh [Type] in Blood (test code = 3+ 05321-4) ABO and Rh group panel - Blood O positive (test code = 77926-1) [facility] GroupBlood group antibody screen [Presence] in Serum or Plasma 2019-03-04 12:35:00 Test Item Value Reference Range Interpretation Comments Blood group antibody screen negative [Presence] in Serum or Plasma (test code = 890-4) [facility] GroupBacteria identified in Urine by [id number] 12:35:00Bacteria Ur CultHereford Regional Medical Center GroupReagin Ab [Presence] in Serum by [id number] 12:35:00 Test Item Value Reference Range Interpretation Comments Reagin Ab [Presence] in Serum by nonreactive nonreactive RPR (test code = 59822-1) [facility] Hospitalantibiotic sensitivity testing, [id number] 12:35:00 Test Item Value Reference Range Interpretation [...] Minimum inhibitory concentration (GUSTAVO) (test code = 43024-7) Piperacillin+Tazobactam <16 [Susceptibility] by Minimum inhibitory concentration [...] <0.5 inhibitory concentration (GUSTAVO) (test code = 52385-9) Aztreonam [Susceptibility] by Minimum <4 inhibitory concentration (GUSTAVO) (test code = 44-8) Cefuroxime [Susceptibility] by Minimum <4 inhibitory concentration (GUSTAVO) (test code = 90434-1) [facility] W Auto Differential panel - [id number] 12:35:00 Test Item Value Reference Range Interpretation Comments white blood count (test code = 12.4 K/uL 4.0-11.5 white blood count) red blood count (test code = red 3.63 M/uL 3.80-5.20 L blood count) hemoglobin (test code = 10.0 g/dL 10.5-15.7 L hemoglobin) hematocrit (test code = 31.4 % 34.0-50.0 hematocrit) Erythrocyte mean corpuscular 86.5 fL 86-100 volume [Entitic volume] (test code = 17714-6) mean corpuscular hemoglobin (test 27.5 pg 26.2-33.4 [...] 44.4-80.1 leukocytes in Blood (test code = 26620-2) Granulocytes Immature [#/volume] 0.1 K/uL 0.0-0.03 H in Blood (test code = 04217-7) lymphocyte% (test code = 15.7 % 10.0-50.0 lymphocyte%) mono % (test code = mono %) 5.7 % 3.6-12.0 eos % (test code = eos %) 0.3 % 0.0-5.4 Basophils/100 leukocytes in 0.2 % 0.1-1.2 Unspecified specimen (test code = 35312-9) Neutrophils.band form [#/volume] 9.61 K/uL 1.56-6.13 H in Blood (test code = 80906-2) Lymphocytes [#/volume] in 1.9 K/uL 1.18-3.74 Unspecified specimen by Automated count (test code = 12431-2) mono # (test code = mono #) 0.70 K/uL 0.24-0.86 eos # (test code = eos #) 0.04 K/uL 0.04-0.36 basophil # (test code = basophil 0.02 K/uL 0.01-0.08 #) NRBC% (test code = NRBC%) 0 /100 WBC 0-0.2 NRBC# (test code = NRBC#) 0 K/uL [facility] GroupHIV 1+2 Ab [Presence] in [id number] 12:35:00HIV P24 AgHIV-1/2 AbMatagonorth sunflower medical center Medical GroupABO & Rh group [Type] in [id number] 12:35:00 Test Item Value Reference Range Interpretation Comments Rh [Type] in Blood (test code = 3+ 98664-5) ABO and Rh group panel - Blood O positive (test code = 20818-9) [facility] HospitalBlood group antibody screen [Presence] in Serum or Plasma 2019-03-04 12:35:00 Test Item Value Reference Range Interpretation Comments Blood group antibody screen negative [Presence] in Serum or Plasma (test code = 890-4) [facility] HospitalBacteria identified in Urine by [id number] 12:35:00Bacteria Ur CultMataMerit Health River RegionReagin Ab [Presence] in Serum by [id number] 12:35:00 Test Item Value Reference Range Interpretation Comments Reagin Ab [Presence] in Serum by nonreactive nonreactive RPR (test code = 93900-0) [facility] Hospitalantibiotic sensitivity testing, [id number] 12:35:00 Test Item Value Reference Range Interpretation [...] Minimum inhibitory concentration (GUSTAVO) (test code = 45537-8) Piperacillin+Tazobactam <16 [Susceptibility] by Minimum inhibitory concentration [...] <0.5 inhibitory concentration (GUSTAVO) (test code = 22694-4) Aztreonam [Susceptibility] by Minimum <4 inhibitory concentration (GUSTAVO) (test code = 44-8) Cefuroxime [Susceptibility] by Minimum <4 inhibitory concentration (GUSTAVO) (test code = 26191-1) [facility] W Auto Differential panel - [id number] 12:35:00 Test Item Value Reference Range Interpretation Comments white blood count (test code = 12.4 K/uL 4.0-11.5 white blood count) red blood count (test code = red 3.63 M/uL 3.80-5.20 L blood count) hemoglobin (test code = 10.0 g/dL 10.5-15.7 L hemoglobin) hematocrit (test code = 31.4 % 34.0-50.0 hematocrit) Erythrocyte mean corpuscular 86.5 fL 86-100 volume [Entitic volume] (test code = 02856-9) mean corpuscular hemoglobin (test 27.5 pg 26.2-33.4 [...] 44.4-80.1 leukocytes in Blood (test code = 21066-0) Granulocytes Immature [#/volume] 0.1 K/uL 0.0-0.03 H in Blood (test code = 35794-7) lymphocyte% (test code = 15.7 % 10.0-50.0 lymphocyte%) mono % (test code = mono %) 5.7 % 3.6-12.0 eos % (test code = eos %) 0.3 % 0.0-5.4 Basophils/100 leukocytes in 0.2 % 0.1-1.2 Unspecified specimen (test code = 61832-6) Neutrophils.band form [#/volume] 9.61 K/uL 1.56-6.13 H in Blood (test code = 42659-4) Lymphocytes [#/volume] in 1.9 K/uL 1.18-3.74 Unspecified specimen by Automated count (test code = 44168-7) mono # (test code = mono #) 0.70 K/uL 0.24-0.86 eos # (test code = eos #) 0.04 K/uL 0.04-0.36 basophil # (test code = basophil 0.02 K/uL 0.01-0.08 #) NRBC% (test code = NRBC%) 0 /100 WBC 0-0.2 NRBC# (test code = NRBC#) 0 K/uL [facility] GroupHIV 1+2 Ab [Presence] in [id number] 12:35:00HIV P24 AgHIV-1/2 AbMatagorda Medical GroupABO & Rh group [Type] in [id number] 12:35:00 Test Item Value Reference Range Interpretation Comments Rh [Type] in Blood (test code = 3+ 29165-9) ABO and Rh group panel - Blood O positive (test code = 76370-7) [facility] GroupBlood group antibody screen [Presence] in Serum or Plasma 2019-03-04 12:35:00 Test Item Value Reference Range Interpretation Comments Blood group antibody screen negative [Presence] in Serum or Plasma (test code = 890-4) [facility] GroupBacteria identified in Urine by [id number] 12:35:00Bacteria Ur CultMatagorda Medical GroupReagin Ab [Presence] in Serum by [id number] 12:35:00 Test Item Value Reference Range Interpretation Comments Reagin Ab [Presence] in Serum by nonreactive nonreactive RPR (test code = 17100-8) [facility] Hospitalantib[facility] sensitivity testing, [id number] 12:35:00 Test Item Value Reference Range Interpretation [...] Minimum inhibitory concentration (GUSTAVO) (test code = 11496-9) Piperacillin+Tazobactam <16 [Susceptibility] by Minimum inhibitory concentration [...] <0.5 inhibitory concentration (GUSTAVO) (test code = 96508-7) Aztreonam [Susceptibility] by Minimum <4 inhibitory concentration (GUSTAVO) (test code = 44-8) Cefuroxime [Susceptibility] by Minimum <4 inhibitory concentration (GUSTAVO) (test code = 67933-9) [facility] W Auto Differential panel - [id number] 12:35:00 Test Item Value Reference Range Interpretation Comments white blood count (test code = 12.4 K/uL 4.0-11.5 white blood count) red blood count (test code = red 3.63 M/uL 3.80-5.20 L blood count) hemoglobin (test code = 10.0 g/dL 10.5-15.7 L hemoglobin) hematocrit (test code = 31.4 % 34.0-50.0 hematocrit) Erythrocyte mean corpuscular 86.5 fL 86-100 volume [Entitic volume] (test code = 01913-8) mean corpuscular hemoglobin (test 27.5 pg 26.2-33.4 [...] 44.4-80.1 leukocytes in Blood (test code = 70857-3) Granulocytes Immature [#/volume] 0.1 K/uL 0.0-0.03 H in Blood (test code = 81017-8) lymphocyte% (test code = 15.7 % 10.0-50.0 lymphocyte%) mono % (test code = mono %) 5.7 % 3.6-12.0 eos % (test code = eos %) 0.3 % 0.0-5.4 Basophils/100 leukocytes in 0.2 % 0.1-1.2 Unspecified specimen (test code = 13170-9) Neutrophils.band form [#/volume] 9.61 K/uL 1.56-6.13 H in Blood (test code = 11596-4) Lymphocytes [#/volume] in 1.9 K/uL 1.18-3.74 Unspecified specimen by Automated count (test code = 87458-8) mono # (test code = mono #) 0.70 K/uL 0.24-0.86 eos # (test code = eos #) 0.04 K/uL 0.04-0.36 basophil # (test code = basophil 0.02 K/uL 0.01-0.08 #) NRBC% (test code = NRBC%) 0 /100 WBC 0-0.2 NRBC# (test code = NRBC#) 0 K/uL [facility] GroupHIV 1+2 Ab [Presence] in [id number] 12:35:00HIV P24 AgHIV-1/2 AbMatagorda Medical GroupABO & Rh group [Type] in [id number] 12:35:00 Test Item Value Reference Range Interpretation Comments Rh [Type] in Blood (test code = 3+ 66107-2) ABO and Rh group panel - Blood O positive (test code = 98483-7) [facility] GroupBlood group antibody screen [Presence] in Serum or Plasma 2019-03-04 12:35:00 Test Item Value Reference Range Interpretation Comments Blood group antibody screen negative [Presence] in Serum or Plasma (test code = 890-4) [facility] GroupBacteria identified in Urine by [id number] 12:35:00Bacteria Ur CultAktagorda Medical GroupReagin Ab [Presence] in Serum by [id number] 12:35:00 Test Item Value Reference Range Interpretation Comments Reagin Ab [Presence] in Serum by nonreactive nonreactive RPR (test code = 94731-3) [facility] Groupantibiotic sensitivity testing, [id number] 12:35:00 Test Item Value Reference Range Interpretation [...] Minimum inhibitory concentration (GUSTAVO) (test code = 00800-5) Piperacillin+Tazobactam <16 [Susceptibility] by Minimum inhibitory concentration [...] <0.5 inhibitory concentration (GUSTAVO) (test code = 27749-8) Aztreonam [Susceptibility] by Minimum <4 inhibitory concentration (GUSTAVO) (test code = 44-8) Cefuroxime [Susceptibility] by Minimum <4 inhibitory concentration (GUSTAVO) (test code = 20099-1) [facility] W Auto Differential panel - [id number] 12:35:00 Test Item Value Reference Range Interpretation Comments white blood count (test code = 12.4 K/uL 4.0-11.5 white blood count) red blood count (test code = red 3.63 M/uL 3.80-5.20 L blood count) hemoglobin (test code = 10.0 g/dL 10.5-15.7 L hemoglobin) hematocrit (test code = 31.4 % 34.0-50.0 hematocrit) Erythrocyte mean corpuscular 86.5 fL 86-100 volume [Entitic volume] (test code = 99926-0) mean corpuscular hemoglobin (test 27.5 pg 26.2-33.4 [...] 44.4-80.1 leukocytes in Blood (test code = 18627-0) Granulocytes Immature [#/volume] 0.1 K/uL 0.0-0.03 H in Blood (test code = 94001-8) lymphocyte% (test code = 15.7 % 10.0-50.0 lymphocyte%) mono % (test code = mono %) 5.7 % 3.6-12.0 eos % (test code = eos %) 0.3 % 0.0-5.4 Basophils/100 leukocytes in 0.2 % 0.1-1.2 Unspecified specimen (test code = 82778-1) Neutrophils.band form [#/volume] 9.61 K/uL 1.56-6.13 H in Blood (test code = 08151-3) Lymphocytes [#/volume] in 1.9 K/uL 1.18-3.74 Unspecified specimen by Automated count (test code = 08937-7) mono # (test code = mono #) 0.70 K/uL 0.24-0.86 eos # (test code = eos #) 0.04 K/uL 0.04-0.36 basophil # (test code = basophil 0.02 K/uL 0.01-0.08 #) NRBC% (test code = NRBC%) 0 /100 WBC 0-0.2 NRBC# (test code = NRBC#) 0 K/uL [facility] [Presence] in [id number] 12:35:00HIV P24 AgHIV-1/2 AbMatagorda Medical GroupABO & Rh group [Type] in [id number] 12:35:00 Test Item Value Reference Range Interpretation Comments Rh [Type] in Blood (test code = 3+ 23267-7) ABO and Rh group panel - Blood O positive (test code = 93867-1) [facility] screen [Presence] in Serum or Plasma 2019-03-04 12:35:00 Test Item Value Reference Range Interpretation Comments Blood group antibody screen negative [Presence] in Serum or Plasma (test code = 890-4) [facility] HospitalBacteria identified in Urine by [id number] 12:35:00Bacteria Ur CultBe[facility]am Memorial HospitalReagin Ab [Presence] in Serum by [id number] 12:35:00 Test Item Value Reference Range Interpretation Comments Reagin Ab [Presence] in Serum by nonreactive nonreactive RPR (test code = 73534-5) [facility]antib[facility] sensitivity testing, [id number] 12:35:00 Test Item Value Reference Range Interpretation [...] Minimum inhibitory concentration (GUSTAVO) (test code = 28910-3) Piperacillin+Tazobactam <16 [Susceptibility] by Minimum inhibitory concentration [...] <0.5 inhibitory concentration (GUSTAVO) (test code = 46235-1) Aztreonam [Susceptibility] by Minimum <4 inhibitory concentration (GUSTAVO) (test code = 44-8) Cefuroxime [Susceptibility] by Minimum <4 inhibitory concentration (GUSTAVO) (test code = 99190-7) [facility] HospitalHepatitis B virus surface Ag [Presence] in Serum 2019-03-04 02:36:00 Test Item Value Reference Range Interpretation Comments .hepatitis B surface antigen (test negative negative code = .hepatitis B surface antigen) [facility] B virus surface Ag [Presence] in Serum 2019-03-04 02:36:00 Test Item Value Reference Range Interpretation Comments .hepatitis B surface antigen (test negative negative code = .hepatitis B surface antigen) [facility] B virus surface Ag [Presence] in Serum 2019-03-04 02:36:00 Test Item Value Reference Range Interpretation Comments .hepatitis B surface antigen (test negative negative code = .hepatitis B surface antigen) [facility] B virus surface Ag [Presence] in Serum 2019-03-04 02:36:00 Test Item Value Reference Range Interpretation Comments .hepatitis B surface antigen (test negative negative code = .hepatitis B surface antigen) [facility] B virus surface Ag [Presence] in Serum 2019-03-04 02:36:00 Test Item Value Reference Range Interpretation Comments .hepatitis B surface antigen (test negative negative code = .hepatitis B surface antigen) [facility]"
[2023-01-15] MEDS ORDERED: KETOROLAC 30 MG/ML INJ ONE (09:08)
--- NOTE | 2023-01-15 10:20 | RAD REPORT ---
EXAM DESCRIPTION: RAD - Hand Right 3 View - 01/15/2023 9:51 am CLINICAL HISTORY: Pain;Swelling;Smash injury COMPARISON: No comparisons TECHNIQUE: Right hand, 3 views. FINDINGS: No fracture is identified. There is no dislocation or periosteal reaction noted. Mild dorsal soft tissue swelling at the level o f the distal metacarpals. No foreign body or other soft tissue abnormality. IMPRESSION: Soft tissue swelling as above without acute osseus abnormality.
--- NOTE | 2023-01-15 10:36 | EDPHYS ---
Physician Documentation [facility] Name: Gloria Modi Age: 27 yrs Sex: Female : 1995 Arrival Date: 01/15/2023 Time: 08:34 Bed 6 Private MD: ED Physician Alden Lindsay HPI: 01/15 09:27 This 27 yrs old Female presents to ER via Ambulatory with complaints of Hand Injury. snw 09:27 The patient or guardian reports a contusion, decreased range of motion, injury, pain. snw The complaints affect the medial aspect of right hand and dorsum of right hand. Context: The problem was sustained at home, resulted from fell on child's toy. Onset: The symptoms/episode began/occurred acutely, 2 day(s) ago, and became persistent. Associated signs and symptoms: Pertinent positives: of the right hand. Severity of symptoms: At their worst the symptoms were moderate. The patient has not experienced similar symptoms in the past. The patient has not recently seen a physician. Historical: - Allergies: 08:49 Latex; ll1 08:49 Tylenol # 3; ll1 - PMHx: 08:49 Bipolar disorder; chronic back pain; Guillan [place]; PTSD; ll1 - PSHx: 08:49 Cholecystectomy; tubal; ll1 - Immunization history:: Adult Immunizations up to date. - Social history:: Smoking status: Reported history of juuling and/or vaping. ROS: 09:26 Constitutional: Negative for fever, chills, and weight loss, Eyes: Negative for injury, snw pain, redness, and discharge, ENT: Negative for injury, pain, and discharge, Neck: Negative for injury, pain, and swelling, Cardiovascular: Negative for chest pain, palpitations, and edema, Respiratory: Negative for shortness of breath, cough, wheezing, and pleuritic chest pain, Abdomen/GI: Negative for abdominal pain, nausea, vomiting, diarrhea, and constipation, Back: Negative for injury and pain, : Negative for injury, bleeding, discharge, and swelling, Skin: Negative for injury, rash, and discoloration, Neuro: Negative for headache, weakness, numbness, tingling, and seizure, Psych: Negative for depression, anxiety, suicide ideation, homicidal ideation, and hallucinations, 09:26 MS/extremity: Positive for injury or acute deformity, decreased range of motion, pain, swelling, tenderness, of the right hand, Exam: 09:25 Constitutional: This is a well developed, well nourished patient who is awake, alert, snw and in no acute distress. Head/Face: Normocephalic, atraumatic. Eyes: Pupils equal round and reactive to light, extra-ocular motions intact. Lids and lashes normal. Conjunctiva and sclera are non-icteric and not injected. Cornea within normal limits. Periorbital areas with no swelling, redness, or edema. ENT: Nares patent. No nasal discharge, no septal abnormalities noted. Tympanic membranes are normal and external auditory canals are clear. Oropharynx with no redness, swelling, or masses, exudates, or evidence of obstruction, uvula midline. Mucous membranes moist. Neck: Trachea midline, no thyromegaly or masses palpated, and no cervical lymphadenopathy. Supple, full range of motion without nuchal rigidity, or vertebral point tenderness. No Meningismus. Chest/axilla: Normal chest wall appearance and motion. Nontender with no deformity. No lesions are appreciated. Cardiovascular: Regular rate and rhythm with a normal S1 and S2. No gallops, murmurs, or rubs. Normal PMI, no JVD. No pulse deficits. Respiratory: Lungs have equal breath sounds bilaterally, clear to auscultation and percussion. No rales, rhonchi or wheezes noted. No increased work of breathing, no retractions or nasal flaring. Abdomen/GI: Soft, non-tender, with normal bowel sounds. No distension or tympany. No guarding or rebound. No evidence of tenderness throughout. Back: No spinal tenderness. No costovertebral tenderness. Full range of motion. Skin: Warm, dry with normal turgor. Normal color with no rashes, no lesions, and no evidence of cellulitis. Neuro: Awake and alert, GCS 15, oriented to person, place, time, and situation. Cranial nerves II-XII grossly intact. Motor strength 5/5 in all extremities. Sensory grossly intact. Cerebellar exam normal. Normal gait. Psych: Awake, alert, with orientation to person, place and time. Behavior, mood, and affect are within normal limits. 09:25 Musculoskeletal/extremity: Extremities: grossly normal except: noted in the right hand: contusion, decreased ROM, ecchymosis, swelling, tenderness, ROM: Circulation is intact in all extremities. Sensation intact. Vital Signs: 08:53 BP 109 / 72; Pulse 66; Resp 16; Temp 98; Pulse Ox 100% ; Weight 43.09 kg; Height 5 ft. ll1 0 in. ; Pain 10/10; 10:10 BP 114 / 66; Pulse 63; Resp 16 S; Pulse Ox 100% on R/A; kc6 08:53 Body Mass Index 18.55 (43.09 kg, 152.4 cm) ll1 08:53 Pain Scale: Adult ll1 MDM: 08:45 Patient medically screened. oren 09:40 Differential diagnosis: dislocation, closed fracture, contusion, sprain. Data reviewed: snw vital signs, nurses notes, radiologic studies. Independent interpretation of the following test(s) in the Emergency Department X-Ray: My interpretation is no noted fracture. 09:40 Counseling: I had a detailed discussion with the patient and/or guardian regarding the snw historical points, exam findings, and any diagnostic results supporting the discharge/admit diagnosis, radiology results, the need for outpatient follow up, to return to the emergency department if symptoms worsen or persist or if there are any questions or concerns that arise at home. Special discussion: Based on the history and exam findings, there is no indication for further emergent testing or inpatient evaluation. I discussed with the patient/guardian the need to see the orthopedic surgeon for further evaluation of the symptoms. I discussed with the patient/guardian the need to see the primary care provider for further evaluation of the symptoms. ED course: pt agitated that no narcotics offered for injury from 2 days ago. 10 08:53 Order name: Hand Right 3 View XRAY; Complete Time: 10:36 snw 01/15 09:43 Order name: Ulnar Gutter splint; Complete Time: 10:03 snw Administered Medications: 09:00 Drug: Ketorolac IM 30 mg IM once Route: IM; Site: right deltoid; kc6 10:12 Follow up: Response: No adverse reaction; Pain is unchanged, physician notified kc6 Disposition Summary: 01/15/23 10:36 Discharge Ordered Notes: Location: Home snw Condition: Stable snw Diagnosis - Contusion of right hand snw Followup: snw - With: Emergency Department - When: As needed - Reason: Worsening of condition Followup: snw - With: Private Physician - When: 1 - 2 days - Reason: Recheck today's complaints, Continuance of care, Re-evaluation by your physician Discharge Instructions: - Discharge Summary Sheet snw - Contusion snw - Cast or Splint Care, Adult snw - RICE Therapy for Routine Care of Injuries snw - Wrist Sprain, Adult snw Forms: - Medication Reconciliation Form snw - Thank You Letter snw - Antibiotic Education snw - Prescription Opioid Use snw - Patient Portal Instructions snw - Leadership Thank You Letter snw - Work release form ld1 Prescriptions: - Mobic 7.5 mg Oral Tablet - take 1 tablet ORAL route once daily take with food; 20 tablet; Refills: 0, snw Product Selection Permitted Signatures: Dispatcher [employer] Alden Cadena MD MD cha Waters, Shelly, CUSTOMS DIRECTOR-C CUSTOMS DIRECTOR-Csnw Obed Smith, RN RN ll1 Andra Trevino RN RN kc6
--- NOTE | 2023-01-15 10:36 | ER ---
Nurse's Notes [facility] Name: Gloria Modi Age: 27 yrs Sex: Female : 1995 Arrival Date: 01/15/2023 Time: 08:34 Bed 6 Private MD: Diagnosis: Contusion of right hand Presentation: 01/15 08:53 Chief complaint: Patient states: R hand pain, bruising since Saturday. Tripped on a [employer] ll1 toy. Coronavirus screen: Vaccine status: Patient reports receiving the 1st dose of the Covid vaccine. Client denies travel out of the [place] in the last 14 days. At this time, the client does not indicate any symptoms associated with coronavirus-19. Ebola Screen: Patient denies travel to an Ebola-affected area in the 21 days before illness onset. Initial Sepsis Screen: Does the patient meet any 2 criteria? No. Patient's initial sepsis screen is negative. Does the patient have a suspected source of infection? Yes: Bone or joint infection. Risk Assessment: Do you want to hurt yourself or someone else? Patient reports no desire to harm self or others. Onset of symptoms was January 13, 2023. 08:53 Method Of Arrival: Ambulatory ll1 08:53 Acuity: NICO 4 ll1 Triage Assessment: 08:54 General: Appears uncomfortable, Behavior is calm, cooperative, appropriate for age. ll1 Pain: Complains of pain in right hand Pain currently is 10 out of 10 on a pain scale. Quality of pain is described as aching, throbbing. Musculoskeletal: Circulation, motion, and sensation intact. Capillary refill < 3 seconds, Swelling present in right hand. Injury Description: Bruise. Historical: - Allergies: 08:49 Latex; ll1 08:49 Tylenol # 3; ll1 - PMHx: 08:49 Bipolar disorder; chronic back pain; Guillan [place]; PTSD; ll1 - PSHx: 08:49 Cholecystectomy; tubal; ll1 - Immunization history:: Adult Immunizations up to date. - Social history:: Smoking status: Reported history of juuling and/or vaping. Screenin:49 [facility] ED Fall Risk Assessment (Adult) History of falling in the last 3 months, kc6 including since admission No falls in past 3 months (0 pts) Confusion or Disorientation No (0 pts) Intoxicated or Sedated No (0 pts) Impaired Gait No (0 pts) Mobility Assist Device Used No (0 pt) Altered Elimination No (0 pt) Score/Fall Risk Level 0 - 2 = Low Risk. Abuse screen: Denies threats or abuse. Denies injuries from another. Nutritional screening: No deficits noted. Tuberculosis screening: No symptoms or risk factors identified. Assessment: 08:50 General: Appears in no apparent distress. comfortable, Behavior is calm, cooperative, kc6 appropriate for age. Pain: Complains of pain in right hand. Neuro: Level of Consciousness is awake, alert, obeys commands, Oriented to person, place, time, situation, Appropriate for age. Cardiovascular: Capillary refill < 3 seconds. Respiratory: Airway is patent Trachea midline Respiratory effort is even, unlabored, Respiratory pattern is regular, symmetrical. GI: : No signs and/or symptoms were reported regarding the genitourinary system. EENT: No signs and/or symptoms were reported regarding the EENT system. Derm: Skin is intact, is healthy with good turgor, Skin is pink, warm \T\ dry. Bruising that is dark purple, on right hand. Musculoskeletal: Capillary refill < 3 seconds, Range of motion: limited in right hand Swelling present in right hand. 10:10 Reassessment: Patient appears in no apparent distress at this time. No changes from kc6 previously documented assessment. Patient and/or family updated on plan of care and expected duration. Pain level reassessed. Patient is alert, oriented x 3, equal unlabored respirations, skin warm/dry/pink. Vital Signs: 08:53 BP 109 / 72; Pulse 66; Resp 16; Temp 98; Pulse Ox 100% ; Weight 43.09 kg; Height 5 ft. ll1 0 in. ; Pain 10/10; 10:10 BP 114 / 66; Pulse 63; Resp 16 S; Pulse Ox 100% on R/A; kc6 08:53 Body Mass Index 18.55 (43.09 kg, 152.4 cm) ll1 08:53 Pain Scale: Adult ll1 ED Course: 08:35 Patient arrived in ED. mr 08:35 Al[facility] Fabian [facility]-C [facility] snw 08:35 Alden Lindsay MD is Attending Physician. snw 08:45 Trevino, Andra, RN is Primary Nurse. kc6 08:49 Arm band placed on Patient placed in an exam room, on a stretcher. ll1 08:50 Patient has correct armband on for positive identification. Bed in low position. Call kc6 light in reach. Side rails up X 1. Client placed on continuous cardiac and pulse oximetry monitoring. NIBP monitoring applied. 08:54 Triage completed. ll1 09:53 Hand Right 3 View XRAY In Process Unspecified. EDMS 10:03 Orthoglass splint: Ulnar gutter/Boxer splint applied on right forearm. ds4 10:54 No provider procedures requiring assistance completed. Patient did not have IV access ld1 during this emergency room visit. Administered Medications: 09:00 Drug: Ketorolac IM 30 mg IM once Route: IM; Site: right deltoid; kc6 10:12 Follow up: Response: No adverse reaction; Pain is unchanged, physician notified kc6 Medication: 10:55 VIS not applicable for this client. ld1 Outcome: 10:36 Discharge ordered by MD. snw 10:55 Discharged to home ambulatory, ld1 10:55 Condition: stable 10:55 Discharge instructions given to patient, Instructed on discharge instructions, follow up and referral plans. medication usage, Demonstrated understanding of instructions, follow-up care, medications, Prescriptions given X 1, 11:02 Patient left the ED. ll1 Signatures: Dispatcher [employer] EDMS Alida Fabian, PIPE JEEPER-C PIPE JEEPER-Ashanti Edmond, Paul Reg Bronson Best ds4 Obed Smith RN RN ll1 Migdalia Smallwood RN RN ld1 Andra Trevino RN RN kc6
[2023-01-15 11:14] VITALS: TEMP 98; O2SAT 100
[2023-01-15 11:15] VITALS: BP 114/66
== END 2023-01-15 11:02 | disposition home or self-care (01) ==
LOC: ER 08:34
DX: S60.221A Contusion of right hand, initial encounter (principal)
CPT/HCPCS: 96372; 99284

== ENCOUNTER → 2023-05-16 | Emergency (ER) | payer SELFPAY ==
[~2023-05-16] MED LIST: CEFTRIAXONE 1000 MG/VIAL ONE; FAMOTIDINE 20 MG/2 ML VIAL IV ONE; MORPHINE 4 MG/ML SYR ONE; NA CHLORIDE 0.9% 1,000 ML ONE; ONDANSETRON 4 MG/2 ML VIAL ONE; PROMETHAZINE INJ 25 MG/ML AMP ONE
[2023-05-16 08:27] LABS: Hematocrit 38.4 % (36.0-45.0); Lymphocytes % 11.4 % (15.3-44.8); MCV 78.5 fL (80-100); MPV 8.8 fL (7.6-11.3); Platelets 271 thou/uL (152-406); RBC Red Blood Cell Count 4.89 M/uL (3.86-4.86)
--- NOTE | 2023-05-16 08:44 | RAD REPORT ---
EXAM DESCRIPTION: CTAbdomen Pelvis W Contrast - 05/16/2023 8:35 am CLINICAL HISTORY: ABD PAIN COMPARISON: Abdomen Pelvis W Contrast dated 10/31/2022; Abdomen Pelvis W Contrast dated 07/27/2022 ; Abdomen Pelvis W Contrast dated 06/01/2022; Abdomen Pelvis W Contrast dated 12/29/2021; Transvagi nal Study Probe dated 11/29/2022 TECHNIQUE: CT of the abdomen and pelvis was performed. All CT scans are performed using dose optimization technique as appropriate and may include automated exposure control or mA/KV adjustment according to patient size. FINDINGS: Lower chest: No acute abnormality. Liver: Similar mild intrahepatic biliary duct dilatation which may be related to the postcholecystect stan state. No suspicious liver lesion. . Biliary: Cholecystectomy.Extrahepatic common bile duct is mildly dilated but tapers normally towards the ampulla Stomach: No significant focal abnormality. Duodenum: No significant focal abnormality. Pancreas: No significant abnormality. Spleen: No significant abnormality. Adrenal: No suspicious lesions. Kidney/ureter: No hydronephrosis. No renal calculi. Left upper pole renal scarring and benign cyst. S ubcentimeter right upper pole renal cyst. Retroperitoneum: No retroperitoneal adenopathy. Vascular: No aneurysm. Bowel: No significant focal abnormality. No appendicitis. Peritoneum: Small volume of pleural free fluid which is likely physiologic. Bladder: Grossly unremarkable. Reproductive: No adnexal masses. Retroverted uterus. Bones: No acute fracture. Other: n/a IMPRESSION: No acute intra-abdominal or pelvic finding. No appendicitis.
[2023-05-16 08:46] LABS: Albumin 4.4 g/dL (3.4-5.0); Potassium 3.4 mEq/L (3.5-5.1); Protein, Total 7.6 g/dL (6.4-8.2)
[2023-05-16 09:33] LABS: Specific Gravity > 1.030 (1.005-1.030)
[2023-05-16 09:35] LABS: Urine Bacteria None Seen /HPF (<20); Urine Bilirubin NEGATIVE (Negative); Urine Blood 1+ (Negative); Urine Clarity Clear (Clear); Urine Color Light-Yellow (Yellow); Urine Glucose NEGATIVE (Negative); Urine Mucus 1+ /HPF (None Seen); Urine Protein 1+ (Negative); Urine Urobilinogen Normal (Normal); Urine pH 5.5 (5.0-7.0)
[2023-05-16 09:39] LABS: Specific Gravity > 1.030 (1.005-1.030)
--- NOTE | 2023-05-16 10:02 | ER ---
Nurse's Notes [facility] Name: Gloria Modi Age: 27 yrs Sex: Female : 1995 Arrival Date: 05/16/2023 Time: 07:53 Bed 2 Private MD: Diagnosis: Vomiting;Hemoptysis;Abdominal tenderness;Diarrhea, unspecified Presentation: 05/16 08:02 Chief complaint: Patient states: Nausea for 2 days. Vomited a small amount of bright ll1 red blood at work this AM. Now her upper abdomen hurts. Coronavirus screen: Client denies travel out of the [place] in the last 14 days. At this time, the client does not indicate any symptoms associated with coronavirus-19. Ebola Screen: Patient denies travel to an Ebola-affected area in the 21 days before illness onset. Initial Sepsis Screen: Does the patient meet any 2 criteria? No. Patient's initial sepsis screen is negative. Does the patient have a suspected source of infection? Yes: Acute abdominal pain. Risk Assessment: Do you want to hurt yourself or someone else? Patient reports no desire to harm self or others. Onset of symptoms was May 15, 2023. 08:02 Method Of Arrival: Ambulatory ll1 08:02 Acuity: NICO 3 ll1 Historical: - Allergies: 07:55 Latex; ll1 07:55 Tylenol # 3; ll1 - PMHx: 07:55 Bipolar disorder; chronic back pain; Guillan [place]; PTSD; ll1 - PSHx: 07:55 Cholecystectomy; tubal; ll1 - Immunization history:: Adult Immunizations up to date. Screenin:15 [facility] ED Fall Risk Assessment (Adult) History of falling in the last 3 months, kc6 including since admission No falls in past 3 months (0 pts) Confusion or Disorientation No (0 pts) Intoxicated or Sedated No (0 pts) Impaired Gait No (0 pts) Mobility Assist Device Used No (0 pt) Altered Elimination No (0 pt) Score/Fall Risk Level 0 - 2 = Low Risk. Abuse screen: Denies threats or abuse. Denies injuries from another. Nutritional screening: No deficits noted. Tuberculosis screening: No symptoms or risk factors identified. Assessment: 08:15 General: Appears in no apparent distress. comfortable, well groomed, well developed, kc6 Behavior is calm, cooperative, appropriate for age. Pain: Complains of pain in epigastric area. Neuro: Level of Consciousness is awake, alert, obeys commands, Oriented to person, place, time, situation, Appropriate for age. Cardiovascular: Capillary refill < 3 seconds. Respiratory: Airway is patent Trachea midline Respiratory effort is even, unlabored, Respiratory pattern is regular, symmetrical. GI: Abdomen is flat, non-distended, Bowel sounds present X 4 quads. Abd is soft X 4 quads Abdomen is tender to palpation in epigastric area Reports nausea, vomiting, Patient currently denies diarrhea. : No signs and/or symptoms were reported regarding the genitourinary system. EENT: No signs and/or symptoms were reported regarding the EENT system. Derm: No signs and/or symptoms reported regarding the dermatologic system. Skin is intact, is healthy with good turgor, Skin is pink, warm \T\ dry. Musculoskeletal: No signs and/or symptoms reported regarding the musculoskeletal system. Circulation, motion, and sensation intact. Capillary refill < 3 seconds, Range of motion: intact in all extremities. 09:15 Reassessment: Patient appears in no apparent distress at this time. No changes from kc6 previously documented assessment. Patient and/or family updated on plan of care and expected duration. Pain level reassessed. Patient is alert, oriented x 3, equal unlabored respirations, skin warm/dry/pink. 10:25 Reassessment: Patient appears in no apparent distress at this time. No changes from kc6 previously documented assessment. Patient and/or family updated on plan of care and expected duration. Pain level reassessed. Patient is alert, oriented x 3, equal unlabored respirations, skin warm/dry/pink. Vital Signs: 08:02 Resp 17; Weight 45.36 kg; Height 5 ft. 0 in. ; Pain 10/10; ll1 09:04 BP 121 / 81; Pulse 74; Resp 16 S; Pulse Ox 98% on R/A; kc6 10:25 BP 117 / 86; Pulse 57; Resp 16 S; Pulse Ox 99% on R/A; kc6 08:02 Body Mass Index 19.53 (45.36 kg, 152.4 cm) ll1 08:02 Pain Scale: Adult ll1 ED Course: 07:54 Patient arrived in ED. ra3 07:55 Arm band placed on Patient placed in an exam room, on a stretcher. ll1 07:56 Alden Lindsay MD is Attending Physician. oren 08:03 Triage completed. ll1 08:15 Patient has correct armband on for positive identification. Bed in low position. Call kc6 light in reach. Side rails up X 1. Adult w/ patient. Client placed on continuous cardiac and pulse oximetry monitoring. NIBP monitoring applied. 08:15 Inserted saline lock: 22 gauge in left antecubital area, using aseptic technique. Blood kc6 collected. Patient maintains SpO2 saturation greater than 95% on room air. 08:26 Andra Trevino, HORTENCIA is Primary Nurse. kc6 08:37 CT Abd/Pelvis - IV Contrast Only In Process Unspecified. EDMS 10:02 Radha White MD is Referral Physician. oren 10:26 No provider procedures requiring assistance completed. IV discontinued, intact, kc6 bleeding controlled, No redness/swelling at site. Pressure dressing applied. Administered Medications: 08:25 Drug: NS 0.9% IV 1000 ml IV at 1 bolus Per protocol; 1000 mL bolus Route: IV; Rate: 1 kc6 bolus; Site: left antecubital; 10:26 Follow up: Response: No adverse reaction; IV Status: Completed infusion; IV Intake: kc6 1000ml 08:25 Drug: Famotidine IVP 20 mg IVP once; dilute with 10 mL 0.9% NaCl; give over 2 minutes kc6 Route: IVP; Site: left antecubital; 09:28 Follow up: Response: No adverse reaction kc6 08:25 Drug: Ondansetron IVP 4 mg IVP once; over 2 minutes Route: IVP; Site: left antecubital; kc6 09:28 Follow up: Response: No adverse reaction; Nausea unchanged; Vomiting decreased kc6 08:25 Drug: morphine IVP or IV 4 mg IVP once over 4 mins Route: IVP; Infused Over: 4 mins; kc6 Site: left antecubital; 09:28 Follow up: Response: No adverse reaction; Pain is decreased; RASS: Alert and Calm (0) kc6 09:25 Drug: Promethazine IVP 12.5 mg IVP once Route: IVP; Site: left forearm; kc6 10:16 Follow up: Response: No adverse reaction; Nausea is decreased kc6 09:57 Drug: Rocephin IV 1 grams IV at per protocol once; Given slow IV push per pharmacy kc6 instructions Route: IV; Rate: per protocol; Site: left antecubital; 10:16 Follow up: Response: No adverse reaction; IV Status: Completed infusion; IV Intake: [id number] Medication: 10:26 VIS not applicable for this client. kc6 Intake: 10:16 IV: 50ml; Total: 50ml. kc6 10:26 IV: 1000ml; Total: 1050ml. kc6 Outcome: 10:02 Discharge ordered by . oren 10:26 Discharged to home ambulatory, with significant other, kc6 10:26 Condition: improved 10:26 Discharge instructions given to patient, Instructed on discharge instructions, follow up and referral plans. medication usage, Demonstrated understanding of instructions, follow-up care, medications, Prescriptions given X 3, 10:26 Patient left the ED. kc6 Signatures: Dispatcher [employer] EDAlden Flanagan MD MD cha Lewis, Lynsay RN RN ll1 Andra Trevino RN RN kc6 Cris Gray ra3
--- NOTE | 2023-05-16 10:02 | EDPHYS ---
Physician Documentation [facility] Name: Gloria Modi Age: 27 yrs Sex: Female : 1995 Arrival Date: 05/16/2023 Time: 07:53 Bed 2 Private MD: ED Physician Alden Lindsay HPI: 05/16 09:48 This 27 yrs old Female presents to ER via Ambulatory with complaints of oren Vomiting - blood. 09:48 The patient presents to the emergency department with nausea, vomiting, described as oren blood streaked. Onset: The symptoms/episode began/occurred just prior to arrival, this morning. Possible causes: unknown. The symptoms are aggravated by nothing. Associated signs and symptoms: Pertinent positives: abdominal pain, diarrhea, nausea, vomiting. Severity of symptoms: At their worst the symptoms were moderate just prior to arrival, in the emergency department the symptoms have improved moderately. The patient has not experienced similar symptoms in the past. Historical: - Allergies: 07:55 Latex; ll1 07:55 Tylenol # 3; ll1 - PMHx: 07:55 Bipolar disorder; chronic back pain; Guillan [place]; PTSD; ll1 - PSHx: 07:55 Cholecystectomy; tubal; ll1 - Immunization history:: Adult Immunizations up to date. ROS: 09:50 Constitutional: Negative for fever, chills, and weight loss, Eyes: Negative for injury, oren pain, redness, and discharge, ENT: Negative for injury, pain, and discharge, Neck: Negative for injury, pain, and swelling, Cardiovascular: Negative for chest pain, palpitations, and edema, Respiratory: Negative for shortness of breath, cough, wheezing, and pleuritic chest pain, Back: Negative for injury and pain, : Negative for injury, bleeding, discharge, and swelling, MS/Extremity: Negative for injury and deformity, Skin: Negative for injury, rash, and discoloration, Neuro: Negative for headache, weakness, numbness, tingling, and seizure, Psych: Negative for depression, anxiety, suicide ideation, homicidal ideation, and hallucinations, Allergy/Immunology: Negative for hives, rash, and allergies, Endocrine: Negative for neck swelling, polydipsia, polyuria, polyphagia, and marked weight changes, Hematologic/Lymphatic: Negative for swollen nodes, abnormal bleeding, and unusual bruising, 09:50 Abdomen/GI: Positive for abdominal pain, nausea and vomiting, diarrhea, Exam: 09:50 Constitutional: This is a well developed, well nourished patient who is awake, alert, oren and in no acute distress. Head/Face: Normocephalic, atraumatic. Eyes: Pupils equal round and reactive to light, extra-ocular motions intact. Lids and lashes normal. Conjunctiva and sclera are non-icteric and not injected. Cornea within normal limits. Periorbital areas with no swelling, redness, or edema. ENT: Nares patent. No nasal discharge, no septal abnormalities noted. Tympanic membranes are normal and external auditory canals are clear. Oropharynx with no redness, swelling, or masses, exudates, or evidence of obstruction, uvula midline. Mucous membranes moist. Neck: Trachea midline, no thyromegaly or masses palpated, and no cervical lymphadenopathy. Supple, full range of motion without nuchal rigidity, or vertebral point tenderness. No Meningismus. Chest/axilla: Normal chest wall appearance and motion. Nontender with no deformity. No lesions are appreciated. Cardiovascular: Regular rate and rhythm with a normal S1 and S2. No gallops, murmurs, or rubs. Normal PMI, no JVD. No pulse deficits. Respiratory: Lungs have equal breath sounds bilaterally, clear to auscultation and percussion. No rales, rhonchi or wheezes noted. No increased work of breathing, no retractions or nasal flaring. Back: No spinal tenderness. No costovertebral tenderness. Full range of motion. Skin: Warm, dry with normal turgor. Normal color with no rashes, no lesions, and no evidence of cellulitis. MS/ Extremity: Pulses equal, no cyanosis. Neurovascular intact. Full, normal range of motion. Neuro: Awake and alert, GCS 15, oriented to person, place, time, and situation. Cranial nerves II-XII grossly intact. Motor strength 5/5 in all extremities. Sensory grossly intact. Cerebellar exam normal. Normal gait. 09:50 Abdomen/GI: Inspection: abdomen appears normal, Bowel sounds: normal, in all quadrants, Palpation: mild abdominal tenderness, in the right upper quadrant and left upper quadrant, Liver: no appreciated palpable abnormalities, Hernia: not appreciated, Vital Signs: 08:02 Resp 17; Weight 45.36 kg; Height 5 ft. 0 in. ; Pain 10/10; ll1 09:04 BP 121 / 81; Pulse 74; Resp 16 S; Pulse Ox 98% on R/A; kc6 10:25 BP 117 / 86; Pulse 57; Resp 16 S; Pulse Ox 99% on R/A; kc6 08:02 Body Mass Index 19.53 (45.36 kg, 152.4 cm) ll1 08:02 Pain Scale: Adult ll1 MDM: 07:56 Patient medically screened. [facility] 09:50 Differential diagnosis: Nonspecific abd pain, gastritis, pancreatitis, viral oren gastroenteritis, gastroenteritis, diverticulitis. Data reviewed: vital signs, nurses notes, lab test result(s), radiologic studies, CT scan. Consideration of Admission/Observation Escalation of care including admission/observation considered. I considered the following discharge prescriptions or medication management in the emergency department Medications were administered in the Emergency Department. See MAR. Independent interpretation of the following test(s) in the Emergency Department CT Scan: My interpretation is CT ABD PELVIS. Test considered but Not performed: EKG: NO EKG. Historians other than the Patient: Spouse/Significant Other: SPOUSE WELL INFORMED. Care significantly affected by the following chronic conditions: BIPOLAR DO, CBP, PTSD. Counseling: I had a detailed discussion with the patient and/or guardian regarding the historical points, exam findings, and any diagnostic results supporting the discharge/admit diagnosis, lab results, radiology results, the need for outpatient follow up. 05/16 07:57 Order name: CBC with Diff; Complete Time: 09:46 [facility] 05/16 07:57 Order name: CMP; Complete Time: 09:46 [facility] 05/16 07:57 Order name: Lipase; Complete Time: 09:46 [facility] 05/16 07:57 Order name: Test, Urine; Complete Time: 09:46 [facility] 05/16 07:57 Order name: Urinalysis w/ reflexes; Complete Time: 09:46 [facility] 05/16 07:57 Order name: CT Abd/Pelvis - IV Contrast Only; Complete Time: 09:46 oren 05/16 07:57 Order name: IV Saline Lock; Complete Time: 08:25 [facility] 05/16 07:57 Order name: Labs collected and sent; Complete Time: 08:25 oren Administered Medications: 08:25 Drug: NS 0.9% IV 1000 ml IV at 1 bolus Per protocol; 1000 mL bolus Route: IV; Rate: 1 kc6 bolus; Site: left antecubital; 10:26 Follow up: Response: No adverse reaction; IV Status: Completed infusion; IV Intake: kc6 1000ml 08:25 Drug: Famotidine IVP 20 mg IVP once; dilute with 10 mL 0.9% NaCl; give over 2 minutes kc6 Route: IVP; Site: left antecubital; :28 Follow up: Response: No adverse reaction kc6 08:25 Drug: Ondansetron IVP 4 mg IVP once; over 2 minutes Route: IVP; Site: left antecubital; kc6 09:28 Follow up: Response: No adverse reaction; Nausea unchanged; Vomiting decreased kc6 08:25 Drug: morphine IVP or IV 4 mg IVP once over 4 mins Route: IVP; Infused Over: 4 mins; kc6 Site: left antecubital; :28 Follow up: Response: No adverse reaction; Pain is decreased; RASS: Alert and Calm (0) kc6 09:25 Drug: Promethazine IVP 12.5 mg IVP once Route: IVP; Site: left forearm; kc6 10:16 Follow up: Response: No adverse reaction; Nausea is decreased kc6 09:57 Drug: Rocephin IV 1 grams IV at per protocol once; Given slow IV push per pharmacy kc6 instructions Route: IV; Rate: per protocol; Site: left antecubital; 10:16 Follow up: Response: No adverse reaction; IV Status: Completed infusion; IV Intake: [id number] Disposition Summary: 05/16/23 10:02 Discharge Ordered Notes: Location: Home oren Problem: new oren Symptoms: have improved oren Condition: Stable oren Diagnosis - Vomiting oren - Hemoptysis oren - Abdominal tenderness oren - Diarrhea, unspecified oren Followup: oren - With: Private Physician - When: 2 - 3 days - Reason: Recheck today's complaints, Continuance of care, Re-evaluation by your physician Followup: oren - With: Radha White MD - When: 2 - 3 days - Reason: Recheck today's complaints, Continuance of care, Re-evaluation by your physician Discharge Instructions: - Discharge Summary Sheet oren - Abdominal Pain, Adult oren - Diarrhea, Adult oren - Hemoptysis oren - Abdominal Pain, Adult, [id number] oren - Hemoptysis, [id number] oren - Vomiting, Adult oren Forms: - Medication Reconciliation Form oren - Thank You Letter oren - Antibiotic Education oren - Prescription Opioid Use oren - Patient Portal Instructions oren - Leadership Thank You Letter oren - Work release form kc6 Prescriptions: - ondansetron 4 mg Oral Tablet,disintegrating - take 1 tablet ORAL route every 6-8 hours as needed for nausea and vomiting; 20 oren tablet; Refills: 0, Product Selection Permitted - Pepcid 20 mg Oral tablet - take 1 tablet ORAL route every 12 hours for 21 days; 42 tablet; Refills: 0, [facility] Product Selection Permitted - promethazine 25 mg Oral tablet - take 1 tablet ORAL route every 6 hours As needed; 15 tablet; Refills: 0, [facility] Product Selection Permitted Signatures: Dispatcher [employer] Alden Cadena MD MD cha Lewis, Lynsay RN RN ll1 Andra Trevino RN RN kc6
[2023-05-16 10:38] VITALS: BP 117/86; O2SAT 99
== END ==
LOC: ER 07:53
DX: R04.2 Hemoptysis (principal); R10.819 Abdominal tenderness, unspecified site; R19.7 Diarrhea, unspecified
CPT/HCPCS: 36415; 74177; 80053; 81001; 81025; 83690; 85025; J0696; J2405; J2550; J7030; Q9967

== ENCOUNTER 2023-10-20 13:56 | Emergency (ER) | payer SELFPAY ==
[2023-10-20] MEDS ORDERED: dexAMETHasone 10 MG/ML VIAL ONE (14:41)
--- NOTE | 2023-10-20 14:42 | ER ---
Nurse's Notes [facility] Name: Gloria Modi Age: 28 yrs Sex: Female : 1995 Arrival Date: 10/20/2023 Time: 13:56 Bed DX3 Private MD: Diagnosis: Irritant contact dermatitis due to plants, except food Presentation: 10/19 14:32 Chief complaint: Patient states: Exposed to poison oak or poison sumac 2 days ago and cm10 rash is spreading. Pt states having rash generalized throughout body. Coronavirus screen: Client denies travel out of the [place] in the last 14 days. At this time, the client does not indicate any symptoms associated with coronavirus-19. Ebola Screen: Patient denies travel to an Ebola-affected area in the 21 days before illness onset. No symptoms or risks identified at this time. Initial Sepsis Screen: Does the patient meet any 2 criteria? No. Patient's initial sepsis screen is negative. Does the patient have a suspected source of infection? No. Patient's initial sepsis screen is negative. Risk Assessment: Do you want to hurt yourself or someone else? Patient reports no desire to harm self or others. Onset of symptoms was October 20, 2023. 14:32 Method Of Arrival: Ambulatory cm10 14:32 Acuity: NICO 4 cm10 Triage Assessment: 14:34 General: Appears in no apparent distress. comfortable, Behavior is calm, cooperative. cm10 Pain: Denies pain. Neuro: No deficits noted. Level of Consciousness is awake, alert, obeys commands, Oriented to person, place, time, situation, Appropriate for age. Respiratory: No deficits noted. Airway is patent Respiratory effort is even, unlabored, Respiratory pattern is regular, symmetrical. Derm: Reports itching. Musculoskeletal: No deficits noted. Range of motion: intact in all extremities. Historical: - Allergies: 14:34 Latex; cm10 14:34 Tylenol # 3; cm10 - PMHx: 14:34 Bipolar disorder; chronic back pain; Guillan [place]; PTSD; cm10 - PSHx: 14:34 Cholecystectomy; tubal; Tonsillectomy; cm10 - Immunization history:: Adult Immunizations up to date. - Infectious Disease History:: Denies. - Social history:: Smoking status: Reported history of juuling and/or vaping. Screenin:36 [facility] ED Fall Risk Assessment (Adult) History of falling in the last 3 months, cm10 including since admission No falls in past 3 months (0 pts) Confusion or Disorientation No (0 pts) Intoxicated or Sedated No (0 pts) Impaired Gait No (0 pts) Mobility Assist Device Used No (0 pt) Altered Elimination No (0 pt) Score/Fall Risk Level 0 - 2 = Low Risk Oriented to surroundings, Maintained a safe environment, Hourly rounding (assess needs \T\ fall precautionary measures) done. Abuse screen: Denies threats or abuse. Denies injuries from another. Nutritional screening: No deficits noted. Tuberculosis screening: No symptoms or risk factors identified. Vital Signs: 14:32 BP 106 / 65; Pulse 82; Resp 16; Temp 96.6(O); Pulse Ox 96% on R/A; Weight 43.54 kg; cm10 Height 5 ft. 0 in. ; Pain 0/10; 14:32 Body Mass Index 18.75 (43.54 kg, 152.4 cm) cm10 14:32 Pain Scale: Adult cm10 ED Course: 13:58 Patient arrived in ED. im 13:59 Rolf Price MD is Attending Physician. ec2 14:31 Jewels Willis, HORTENCIA is Primary Nurse. cm10 14:33 Triage completed. cm10 14:35 Arm band placed on Patient placed in an exam room. cm10 14:36 Patient has correct armband on for positive identification. Call light in reach. cm10 Provided Education on: ER process and procedures.. Cardiac monitoring not applicable on this patient. 14:37 No provider procedures requiring assistance completed. Patient did not have IV access cm10 during this emergency room visit. Administered Medications: 14:47 Drug: Dexamethasone IM 10 mg IM once Route: IM; Site: right vastus lateralis; cm10 14:50 Follow up: Response: No adverse reaction cm10 Medication: 14:36 VIS not applicable for this client. cm10 Outcome: 14:42 Discharge ordered by . ec2 14:50 Discharged to home ambulatory, with significant other, cm10 14:50 Condition: good 14:50 Discharge instructions given to patient, Instructed on discharge instructions, follow up and referral plans. medication usage, Demonstrated understanding of instructions, follow-up care, medications, Prescriptions given X 1, 14:50 Patient left the ED. cm10 Signatures: Susan Gonzales Clarissa, RN RN cm10 Rolf Price MD MD ec2
--- NOTE | 2023-10-20 14:42 | EDPHYS ---
Physician Documentation [facility] Name: Gloria Modi Age: 28 yrs Sex: Female : 1995 Arrival Date: 10/20/2023 Time: 13:56 Bed DX3 Private MD: ED Physician Rolf Price HPI: 10/19 14:44 This 28 yrs old Female presents to ER via Ambulatory with complaints of Rash. ec2 14:44 Patient arrives today for evaluation of a rash. Onset 3 days ago, no difficulty ec2 breathing. Contact to allergens. . Historical: - Allergies: 14:34 Latex; cm10 14:34 Tylenol # 3; cm10 - PMHx: 14:34 Bipolar disorder; chronic back pain; Guillan [place]; PTSD; cm10 - PSHx: 14:34 Cholecystectomy; tubal; Tonsillectomy; cm10 - Immunization history:: Adult Immunizations up to date. - Infectious Disease History:: Denies. - Social history:: Smoking status: Reported history of juuling and/or vaping. ROS: 14:44 Constitutional: as per hpi ec2 Exam: 14:44 Constitutional: GEN: NAD Head: atraumatic Eyes: EOMI Ears: External ears are ec2 normal. CV: regular rate LUNGS: no respiratory distress ABD: non-distended SKIN: Multiple linear lesions noted to the bilateral lower extremities, no oral involvement MSK: no evidence of trauma NEURO: moves all extremities equally Vital Signs: 14:32 BP 106 / 65; Pulse 82; Resp 16; Temp 96.6(O); Pulse Ox 96% on R/A; Weight 43.54 kg; cm10 Height 5 ft. 0 in. ; Pain 0/10; 14:32 Body Mass Index 18.75 (43.54 kg, 152.4 cm) cm10 14:32 Pain Scale: Adult cm10 MDM: 14:36 Patient medically screened. ec2 14:44 Data reviewed: vital signs. ED course: Arrives today for due to concern for allergen ec2 exposure. Examination remarkable for skin findings as above. Presentation consistent with contact dermatitis. Will start the patient on steroids and have the patient follow-up primary care doctor. Return precautions given. . Administered Medications: 14:47 Drug: Dexamethasone IM 10 mg IM once Route: IM; Site: right vastus lateralis; cm10 14:50 Follow up: Response: No adverse reaction cm10 Disposition Summary: 10/20/23 14:42 Discharge Ordered Notes: Location: Home ec2 Condition: Stable ec2 Diagnosis - Irritant contact dermatitis due to plants, except food ec2 Followup: ec2 - With: Private Physician - When: - Reason: Re-evaluation by your physician Discharge Instructions: - Discharge Summary Sheet ec2 - Contact Dermatitis ec2 Forms: - Medication Reconciliation Form ec2 - Antibiotic Education ec2 - Prescription Opioid Use ec2 - Patient Portal Instructions ec2 - Leadership Thank You Letter ec2 Prescriptions: - Prednisone 20 mg Oral Tablet - take 2 tablets ORAL route once daily for 5 days; 10 tablet; Refills: 0, Product ec2 Selection Permitted Signatures: Jewels Willis RN RN cm10 Rolf Price MD MD ec2
[2023-10-20 15:15] VITALS: BP 106/65; TEMP 96.6; O2SAT 96
== END 2023-10-20 14:50 | disposition home or self-care (01) ==
LOC: ER 13:56
DX: L24.7 Irritant contact dermatitis due to plants, except food (principal)
CPT/HCPCS: 96372; 99284; J1100

== ENCOUNTER 2023-11-03 17:11 | Emergency (ER) | payer SELFPAY ==
--- NOTE | 2023-11-03 17:47 | EDPHYS ---
Physician Documentation [facility] Name: Gloria Modi Age: 28 yrs Sex: Female : 1995 Arrival Date: 11/03/2023 Time: 17:11 Bed IW2 Private MD: ED Physician Maritza Zapata HPI: 11/02 17:38 This 28 yrs old Female presents to ER via Ambulatory with complaints of work note. cp 17:39 request for work note. Patient returns to Ed requesting extension of work note that was cp provided after being seen on 10-29-2023 for persistent rash after exposure to poison [place]. At the visit patient requested note and provided date she would like to return. Presents requesting extension of days off. No other complaints expressed. Historical: - Allergies: 17:34 Latex; tl4 17:34 Tylenol # 3; tl4 - Home Meds: 18:04 gabapentin 300 mg Oral cap 1 cap 3 times per day [Active]; ibuprofen 800 mg Oral tab 1 tl4 tab 3 times per day [Active]; tizanidine 4 mg Oral cap 1 cap every 6 hours [Active]; Zoloft 50 mg Oral tab 1 tab once daily [Active]; - PMHx: 17:34 Bipolar disorder; chronic back pain; Guillan [place]; PTSD; tl4 - PSHx: 17:34 Cholecystectomy; Tonsillectomy; tubal; tl4 - Immunization history:: Adult Immunizations unknown. - Infectious Disease History:: Denies. - Social history:: Smoking status: Reported history of juuling and/or vaping. ROS: 17:41 Constitutional: HX per HPI cp 17:41 Constitutional: Negative for body aches, chills, fever, poor PO intake, 17:41 ENT: Negative for drainage from ear(s), ear pain, sore throat, difficulty swallowing, difficulty handling secretions, 17:41 Cardiovascular: Negative for chest pain, 17:41 Respiratory: Negative for cough, shortness of breath, wheezing, 17:41 Abdomen/GI: Negative for abdominal pain, vomiting, diarrhea, constipation, 17:41 All other systems are negative, Exam: 17:42 Head/Face: Normocephalic, atraumatic. cp 17:42 Constitutional: The patient appears in no acute distress, alert, awake, non-toxic, well developed, well nourished, 17:42 Cardiovascular: Rate: normal, 17:42 Respiratory: the patient does not display signs of respiratory distress, Respirations: normal, no use of accessory muscles, no retractions, labored breathing, is not present, Breath sounds: are clear throughout, no decreased breath sounds, no stridor, no wheezing, 17:42 Abdomen/GI: Inspection: abdomen appears normal, 17:42 Neuro: Orientation: to person, place \T\ time. Mentation: is normal, Motor: moves all fours, strength is normal, Gait: is steady, Vital Signs: 17:28 BP 136 / 74; Pulse 99; Resp 16; Temp 97.2(TE); Pulse Ox 100% on R/A; Weight 43.54 kg; tl4 Height 5 ft. 0 in. ; Pain 0/10; 17:28 Body Mass Index 18.75 (43.54 kg, 152.4 cm) tl4 17:28 Pain Scale: Adult tl4 MDM: 17:35 Patient medically screened. cp Administered Medications: No medications were administered Disposition: 19:31 I reviewed the patient's care provided by the Advanced Practice Provider and agree with sd2 the diagnosis and treatment plan. Disposition Summary: 11/03/23 17:46 Discharge Ordered Notes: Location: Home cp Problem: an ongoing problem cp Symptoms: have improved cp Condition: Stable cp Diagnosis - Encounter for screening, unspecified - work note cp Followup: cp - With: Private Physician - When: 1 - 2 days - Reason: Recheck today's complaints Forms: - Medication Reconciliation Form cp - Antibiotic Education cp - Prescription Opioid Use cp - Patient Portal Instructions cp - Leadership Thank You Letter cp Signatures: Alden Snider PA PA cp Maritza Zapata MD MD sd2 Hector Rod RN RN tl4 Corrections: (The following items were deleted from the chart) 17:58 17:39 Patient returns to Ed requesting extension of work note after being seen on cp 10-29-2023 for persistent rash after exposure to poison [place]. No other complaints expressed. cp
--- NOTE | 2023-11-03 17:47 | ER ---
Nurse's Notes [facility] Name: Gloria Modi Age: 28 yrs Sex: Female : 1995 Arrival Date: 11/03/2023 Time: 17:11 Bed IW2 Private MD: Diagnosis: Encounter for screening, unspecified-work note Presentation: 11/02 17:28 Chief complaint: Patient states: Pt states she wants a new work note to include this tl4 weekend. Pt was evaluated in this ED on 10/28 for poison [place] and states she was told by ED physician she needed to have off until 11/04/23 but did not give her a note. RN gave a work excuse per pt request thru 10/31/23, the date pt requested. Pt denies any complaints. Coronavirus screen: At this time, the client does not indicate any symptoms associated with coronavirus-19. Ebola Screen: No symptoms or risks identified at this time. Initial Sepsis Screen: Does the patient meet any 2 criteria? No. Patient's initial sepsis screen is negative. Does the patient have a suspected source of infection? No. Patient's initial sepsis screen is negative. Risk Assessment: Do you want to hurt yourself or someone else? Patient reports no desire to harm self or others. Onset of symptoms was October 29, 2023. 17:28 Method Of Arrival: Ambulatory tl4 17:28 Acuity: NICO 5 tl4 Triage Assessment: 17:35 General: Appears in no apparent distress. Behavior is cooperative. Pain: Denies pain. tl4 EENT: No signs and/or symptoms were reported regarding the EENT system. Neuro: Level of Consciousness is awake, alert, obeys commands, Oriented to person, place, time, situation. Cardiovascular: Capillary refill < 3 seconds Patient's skin is warm and dry. Respiratory: Airway is patent Respiratory effort is even, unlabored, Respiratory pattern is regular, symmetrical. GI: No signs and/or symptoms were reported involving the gastrointestinal system. : No signs and/or symptoms were reported regarding the genitourinary system. Derm: No signs and/or symptoms reported regarding the dermatologic system. Musculoskeletal: No signs and/or symptoms reported regarding the musculoskeletal system. Historical: - Allergies: 17:34 Latex; tl4 17:34 Tylenol # 3; tl4 - Home Meds: 18:04 gabapentin 300 mg Oral cap 1 cap 3 times per day [Active]; ibuprofen 800 mg Oral tab 1 tl4 tab 3 times per day [Active]; tizanidine 4 mg Oral cap 1 cap every 6 hours [Active]; Zoloft 50 mg Oral tab 1 tab once daily [Active]; - PMHx: 17:34 Bipolar disorder; chronic back pain; Guillan [place]; PTSD; tl4 - PSHx: 17:34 Cholecystectomy; Tonsillectomy; tubal; tl4 - Immunization history:: Adult Immunizations unknown. - Infectious Disease History:: Denies. - Social history:: Smoking status: Reported history of juuling and/or vaping. Screenin:37 [facility] ED Fall Risk Assessment (Adult) History of falling in the last 3 months, tl4 including since admission No falls in past 3 months (0 pts) Confusion or Disorientation No (0 pts) Intoxicated or Sedated No (0 pts) Impaired Gait No (0 pts) Mobility Assist Device Used No (0 pt) Altered Elimination No (0 pt) Score/Fall Risk Level 0 - 2 = Low Risk Oriented to surroundings, Maintained a safe environment, Educated pt \T\ family on fall prevention, incl call for assistance when getting out of bed, Assessed \T\ reinforced patient's understanding of fall precautions. Abuse screen: Denies threats or abuse. Denies injuries from another. Nutritional screening: No deficits noted. Tuberculosis screening: No symptoms or risk factors identified. Assessment: 18:02 Reassessment: Pt walked out of triage room and refused to sign any paperwork. Unable to tl4 obtain [employer]IN[employer] history. Vital Signs: 17:28 BP 136 / 74; Pulse 99; Resp 16; Temp 97.2(TE); Pulse Ox 100% on R/A; Weight 43.54 kg; tl4 Height 5 ft. 0 in. ; Pain 0/10; 17:28 Body Mass Index 18.75 (43.54 kg, 152.4 cm) tl4 17:28 Pain Scale: Adult tl4 ED Course: 17:13 Patient arrived in ED. im 17:34 Alden Snider PA is PHCP. cp 17:34 Maritza Zapata MD is Attending Physician. cp 17:34 Triage completed. tl4 17:36 Arm band placed on right wrist. tl4 17:37 Patient has correct armband on for positive identification. Provided Education on: call tl4 dolan. 18:03 No provider procedures requiring assistance completed. Patient did not have IV access tl4 during this emergency room visit. Administered Medications: No medications were administered Medication: 17:37 VIS not applicable for this client. tl4 Outcome: 17:46 Discharge ordered by . cp 17:46 Discharged to home ambulatory, with family, tl4 17:46 Condition: good 17:46 Discharge instructions given to pt refused discharge instructions 18:05 Patient left the ED. tl4 Signatures: Alden Snider PA PA cp Susan Gonzales Toni RN RN tl4 Corrections: (The following items were deleted from the chart) 18:05 18:02 Reassessment: Pt walked out of triage room and refused to sign any paperwork tl4 tl4
[2023-11-07 14:46] VITALS: BP 136/74; TEMP 97.2; O2SAT 100
== END 2023-11-03 18:05 | disposition home or self-care (01) ==
LOC: ER 17:11
DX: Z02.89 Encounter for other administrative examinations (principal)
CPT/HCPCS: 99282

== ENCOUNTER 2023-12-19 17:20 | Emergency (ER) | payer SELFPAY ==
--- NOTE | 2023-12-19 18:07 | EDPHYS ---
Physician Documentation [facility] Name: Gloria Modi Age: 28 yrs Sex: Female : 1995 Arrival Date: 12/19/2023 Time: 17:20 Bed 15 Private MD: JULIETA Physician Santo Reyes HPI: 12/18 18:00 This 28 yrs old Female presents to ER via Ambulatory with complaints of Pain, Numbness. sp3 18:00 38-year-old female with a history of bipolar disease, PTSD, chronic back pain, prior sp3 Guillain-[place] episode now presents again for recurrent migraine headache. Patient states that she has ran out of her sumatriptan and OTC NSAIDs have not helped. She denies any other atypical pattern to her symptoms and states this is a typical migraine for her. She denies head injury, fever, neck pain, chest pain, shortness of breath, abdominal pain, ascending weakness or any other signs or symptoms on ROS at this time. She does have left-sided paresthesias which she has had for several weeks now and is currently being worked up as an outpatient.. 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 - Infectious Disease History:: Denies. - Social history:: Smoking status: Reported history of juuling and/or vaping. ROS: 18:01 Constitutional: Negative for fever, chills, and weight loss, Eyes: Negative for injury, sp3 pain, redness, and discharge, ENT: Negative for injury, pain, and discharge, Neck: Negative for injury, pain, and swelling, Cardiovascular: Negative for chest pain, palpitations, and edema, Respiratory: Negative for shortness of breath, cough, wheezing, and pleuritic chest pain, Abdomen/GI: Negative for abdominal pain, nausea, vomiting, diarrhea, and constipation, Back: Negative for injury and pain, Skin: Negative for injury, rash, and discoloration, Psych: Negative for depression, anxiety, suicide ideation, homicidal ideation, and hallucinations, Allergy/Immunology: Negative for hives, rash, and allergies, Endocrine: Negative for neck swelling, polydipsia, polyuria, polyphagia, and marked weight changes, Hematologic/Lymphatic: Negative for swollen nodes, abnormal bleeding, and unusual bruising, Exam: 18:02 Constitutional: This is a well developed, well nourished patient who is awake, alert, sp3 and in no acute distress. Head/Face: Normocephalic, atraumatic. Eyes: Pupils equal round and reactive to light, extra-ocular motions intact. Lids and lashes normal. Conjunctiva and sclera are non-icteric and not injected. Cornea within normal limits. Periorbital areas with no swelling, redness, or edema. ENT: Nares patent. No nasal discharge, no septal abnormalities noted. External auditory canals are clear. Oropharynx with no redness, swelling, or masses, exudates, or evidence of obstruction, uvula midline. Mucous membranes moist. Neck: Trachea midline, no thyromegaly or masses palpated, and no cervical lymphadenopathy. Supple, full range of motion without nuchal rigidity, or vertebral point tenderness. No Meningismus. Chest/axilla: Normal chest wall appearance and motion. Nontender with no deformity. No lesions are appreciated. Cardiovascular: Regular rate and rhythm with a normal S1 and S2. No gallops, murmurs, or rubs. Normal PMI, no JVD. No pulse deficits. Respiratory: Lungs have equal breath sounds bilaterally, clear to auscultation and percussion. No rales, rhonchi or wheezes noted. No increased work of breathing, no retractions or nasal flaring. Abdomen/GI: Soft, non-tender, with normal bowel sounds. No distension or tympany. No guarding or rebound. No evidence of tenderness throughout. Back: No spinal tenderness. No costovertebral tenderness. Full range of motion. Skin: Warm, dry with normal turgor. Normal color with no rashes, no lesions, and no evidence of cellulitis. MS/ Extremity: Pulses equal, no cyanosis. Neurovascular intact. Full, normal range of motion. Neuro: Awake and alert, GCS 15, oriented to person, place, time, and situation. Cranial nerves II-XII grossly intact. Motor strength 5/5 in all extremities. Sensory grossly intact. Cerebellar exam normal. Normal gait. Psych: Awake, alert, with orientation to person, place and time. Behavior, mood, and affect are within normal limits. Vital Signs: 17:26 BP 100 / 75; Pulse 78; Resp 16; Temp 97.8; Pulse Ox 100% ; Weight 41.28 kg; Height 5 dd2 ft. 0 in. ; 18:29 BP 90 / 72; Pulse 88; Resp 18; Temp 98; Pulse Ox 100% on R/A; kj2 17:26 Body Mass Index 17.77 (41.28 kg, 152.4 cm) dd2 MDM: 17:41 Patient medically screened. sp3 18:03 Data reviewed: vital signs, nurses notes, old medical records. ED course: Patient in no sp3 acute distress and with no photophobia. 28-year-old female with typical migraine pattern. She is out of her sumatriptan and we will refill that. Intramuscular ketorolac and Phenergan will be given here and she will be safely discharged home. Patient is okay with the plan and is grateful for her service.. Administered Medications: 18:31 Drug: Ketorolac IM 30 mg IM once Route: IM; Site: right gluteus; kj2 18:31 Follow up: Response: No adverse reaction; Medication administered at discharge. kj2 18:31 Drug: Promethazine IM 25 mg IM once Route: IM; Site: left gluteus; kj2 18:31 Follow up: Response: No adverse reaction; Medication administered at discharge. kj2 Disposition Summary: 12/19/23 18:06 Discharge Ordered Notes: Location: Home sp3 Condition: Stable sp3 Diagnosis - Migraine, unspecified, not intractable, without status migrainosus sp3 Followup: sp3 - With: Private Physician - When: Upon discharge from the Emergency Department - Reason: Continuance of care Discharge Instructions: - Discharge Summary Sheet sp3 - Migraine Headache sp3 - Form - Return To Work kj2 Forms: - Medication Reconciliation Form sp3 - Antibiotic Education sp3 - Prescription Opioid Use sp3 - Patient Portal Instructions sp3 - Leadership Thank You Letter sp3 - Work release form kj2 Prescriptions: - sumatriptan succinate 100 mg Oral tablet - take 1 tablet ORAL route every 2 hours as needed for migraine headache; do not sp3 exceed 2 doses per 24 hrs; 10 tablet; Refills: 0, Product Selection Permitted Signatures: Santo Reyes MD MD sp3 Myla Mcghee RN RN kj2 SHANI BARDALES RN RN dd2
--- NOTE | 2023-12-19 18:07 | ER ---
Nurse's Notes [facility] Name: Gloria Modi Age: 28 yrs Sex: Female : 1995 Arrival Date: 12/19/2023 Time: 17:20 Bed 15 Private MD: Diagnosis: Migraine, unspecified, not intractable, without status migrainosus Presentation: 12/18 17:26 Chief complaint: Patient states: Pt c/o migraine x2 days, Lt arm adn Lt leg numbness, dd2 and diarrhea x2 weeks. Pt states hx of guillain [place]. Coronavirus screen: At this time, the client does not indicate any symptoms associated with coronavirus-19. Ebola Screen: No symptoms or risks identified at this time. Initial Sepsis Screen: Does the patient meet any 2 criteria? No. Patient's initial sepsis screen is negative. Does the patient have a suspected source of infection? No. Patient's initial sepsis screen is negative. Risk Assessment: Do you want to hurt yourself or someone else? Patient reports no desire to harm self or others. Onset of symptoms is unknown. 17:26 Method Of Arrival: Ambulatory dd2 17:26 Acuity: NICO 3 dd2 Triage Assessment: 17:35 General: Appears in no apparent distress. Behavior is calm, cooperative, appropriate dd2 for age. Pain: Complains of pain in head, lt shoulder. [employer]: 17:35 LMP N/A - Irregular menses, Not dd2 Historical: - Allergies: 17:35 Latex; dd2 17:35 Tylenol # 3; dd2 - PMHx: 17:35 Bipolar disorder; chronic back pain; Guillan [place]; PTSD; dd2 - PSHx: 17:35 Cholecystectomy; Tonsillectomy; tubal; dd2 - Immunization history:: Adult Immunizations unknown. - Infectious Disease History:: Denies. - Social history:: Smoking status: Reported history of juuling and/or vaping. Screenin:40 Tuberculosis screening: No symptoms or risk factors identified. kj2 18:16 [facility] ED Fall Risk Assessment (Adult) History of falling in the last 3 months, kj2 including since admission No falls in past 3 months (0 pts) Confusion or Disorientation No (0 pts) Intoxicated or Sedated No (0 pts) Impaired Gait No (0 pts) Mobility Assist Device Used No (0 pt) Altered Elimination No (0 pt) Score/Fall Risk Level 0 - 2 = Low Risk Maintained a safe environment, Educated pt \T\ family on fall prevention, incl call for assistance when getting out of bed, Hourly rounding (assess needs \T\ fall precautionary measures) done. Abuse screen: Denies threats or abuse. Denies injuries from another. Nutritional screening: No deficits noted. Assessment: 17:40 General: Appears in no apparent distress. Behavior is calm, cooperative. Pain: kj2 Complains of pain in face and forehead. Neuro: Level of Consciousness is awake, alert, Oriented to person, place, time, situation. Cardiovascular: Patient's skin is warm and dry. Respiratory: Airway is patent Respiratory effort is unlabored. GI: No deficits noted. : No deficits noted. Vital Signs: 17:26 BP 100 / 75; Pulse 78; Resp 16; Temp 97.8; Pulse Ox 100% ; Weight 41.28 kg; Height 5 dd2 ft. 0 in. ; 18:29 BP 90 / 72; Pulse 88; Resp 18; Temp 98; Pulse Ox 100% on R/A; kj2 17:26 Body Mass Index 17.77 (41.28 kg, 152.4 cm) dd2 ED Course: 17:23 Patient arrived in ED. mg5 17:27 Santo Reyes MD is Attending Physician. sp3 17:30 Triage completed. dd2 17:35 Arm band placed on right wrist. Patient placed in an exam room, on a stretcher, on dd2 pulse oximetry, Patient notified of wait time. 17:45 Patient has correct armband on for positive identification. Bed in low position. Call kj2 light in reach. 18:14 Myla Mcghee, RN is Primary Nurse. kj2 18:17 Provided Education on: call light, fall precautions. kj2 18:17 No provider procedures requiring assistance completed. kj2 18:41 Patient did not have IV access during this emergency room visit. kj2 Administered Medications: 18:31 Drug: Ketorolac IM 30 mg IM once Route: IM; Site: right gluteus; kj2 18:31 Follow up: Response: No adverse reaction; Medication administered at discharge. kj2 18:31 Drug: Promethazine IM 25 mg IM once Route: IM; Site: left gluteus; kj2 18:31 Follow up: Response: No adverse reaction; Medication administered at discharge. kj2 Medication: 18:17 VIS not applicable for this client. kj2 Outcome: 18:06 Discharge ordered by . sp3 18:41 Discharged to home ambulatory, kj2 18:41 Condition: stable 18:41 Discharge instructions given to patient, Instructed on discharge instructions, follow up and referral plans. medication usage, Demonstrated understanding of instructions, follow-up care, medications, Prescriptions given X 1, 18:41 Patient left the ED. kj2 Signatures: Santo Reyes MD MD sp3 Dinorah Pathak 5 Myla Mcghee RN RN kj2 SHANI BARDALES RN RN dd2
[2023-12-19] MEDS ORDERED: PROMETHAZINE INJ 25 MG/ML AMP ONE (18:20)
[2023-12-19] MEDS ORDERED: KETOROLAC 30 MG/ML INJ ONE (18:21)
[2023-12-20 04:06] VITALS: BP 90/72; TEMP 98; O2SAT 100
== END 2023-12-19 18:41 | disposition home or self-care (01) ==
LOC: ER 17:20
DX: G43.009 Migraine without aura, not intractable, without status migrainosus (principal)
CPT/HCPCS: 96372; 99284; J2550

== ENCOUNTER 2024-04-13 15:46 | Emergency (ER) | payer OTHER, SELFPAY ==
--- NOTE | 2024-04-13 17:30 | ER ---
Nurse's Notes [facility] Name: Gloria Modi Age: 28 yrs Sex: Female : 1995 Arrival Date: 04/13/2024 Time: 15:46 Bed Waiting Private MD: Diagnosis: Assessment: 04/13 17:09 Reassessment: called from lobby, no answer. jl7 ED Course: 15:50 Patient arrived in ED. ra3 15:55 Sandy Sutton MD is Attending Physician. yazmin Administered Medications: No medications were administered Outcome: 17:29 Patient left the ED. jl7 Signatures: Contreras Monae RN RN jl7 Sandy Sutton MD MD gb1 Cris Gray ra3
== END 2024-04-13 17:29 | disposition left against medical advice (07) ==
LOC: ER 15:46
DX: Z02.89 Encounter for other administrative examinations (principal); Z53.21 Procedure and treatment not carried out due to patient leaving prior to being seen by health care provider

== ENCOUNTER 2024-04-16 12:13 | Emergency (ER) | payer OTHER ==
[2024-04-16] MEDS ORDERED: KETOROLAC 30 MG/ML INJ ONE (14:47)
[2024-04-16] MEDS ORDERED: dexAMETHasone 10 MG/ML VIAL ONE (14:47)
[2024-04-16] MEDS ORDERED: ONDANSETRON 4 MG/2 ML VIAL ONE (14:47)
[2024-04-16] MEDS ORDERED: FENTANYL CITR 100 MCG/2 ML ONE ×2 (14:47→15:57)
[2024-04-16] MEDS ORDERED: NA CHLORIDE 0.9% 1,000 ML ONE (14:49)
[2024-04-16] MEDS ORDERED: DIAZEPAM 5 MG TABLET ONE (14:49)
[2024-04-16 14:50] LABS: Absolute Basophils 0.1 K/uL (0-0.5); Absolute Eosinophils 0.1 K/uL (0-0.5); Absolute Lymphocytes (CBC) 2.1 K/uL (0.7-4.9); Absolute Monocytes 0.5 K/uL (0.1-1.3); Absolute Neutrophil 3.9 K/uL (1.8-8.0); Basophils % 1.1 % (0-1.3); Eosinophils % 1.2 % (0-4.4); Hematocrit 36.7 % (36.0-45.0); Hemoglobin 12.2 g/dL (12.0-15.0); Lymphocytes % 31.4 % (15.3-44.8); MCH 27.9 pg (27.0-35.0); MCHC 33.1 g/dL (32.0-36.0); MCV 84.4 fL (80-100); MPV 9.3 fL (7.6-11.3); Monocytes % 7.8 % (3.3-12.3); Neutrophils % 58.5 % (41.7-73.7); Nucleated Red Blood Cells % 0.1 % (0-0); Platelets 170 thou/uL (152-406); RBC Red Blood Cell Count 4.35 M/uL (3.86-4.86); Red Cell Distribution Width 14.2 % (12.1-15.2)
--- NOTE | 2024-04-16 15:00 | RAD REPORT ---
EXAMINATION: CT LUMBAR SPINE WITHOUT CONTRAST CLINICAL INDICATION: Female, 28 years old. PAIN TECHNIQUE: Axial CT images were obtained through the lumbar spine in soft tissue and bone windows wit hout intravenous contrast. Coronal and Sagittal reformatted images were created from the data set. One or more of the following dose reduction techniques were used: Automated exposure control, adjustm ent of the mA and/ or kV according to patient size, and/or iterative reconstruction. Unless otherwise specified, incidental findings do not require dedicated imaging follow-up. COMPARISON: No prior exam. FINDINGS: For purposes of this dictation, it is assumed that there are 5 non rib-bearing lumbar type vertebrae, and the most caudal fully segmented lumbar vertebra is labeled L5. ALIGNMENT: The lumbar spine demonstrates normal alignment without scoliosis or spondylolisthesis. BONES: No significant soft tissue abnormalities. No aggressive osseous lesions. DISCS: Intervertebral disc space heights are maintained. LEVELS: Mild posterior disc bulges are seen lower lumbar spine. SOFT TISSUE: No soft tissue abnormalities. IMPRESSION: No acute lumbar spine abnormalities. Mild lower lumbar spondylosis.
[2024-04-16 15:09] LABS: Specific Gravity 1.007 (1.005-1.030)
[2024-04-16 15:09] LABS: Albumin 3.9 g/dL (3.4-5.0); Albumin/Globulin Ratio 1.4 (1.1-1.8); Anion Gap 5.7 mEq/L (5.0-15.0); Bilirubin Total 0.3 mg/dL (0.2-1.0); Globulin 2.7 g/dL (2.3-3.5); Potassium 3.7 mEq/L (3.5-5.1); Protein, Total 6.6 g/dL (6.4-8.2)
[2024-04-16 15:10] LABS: Specific Gravity 1.007 (1.005-1.030); Sqamous Epithelial <5 /HPF (None Seen); Urine Bacteria <20 /HPF (<20); Urine Bilirubin NEGATIVE (Negative); Urine Blood Negative (Negative); Urine Clarity Clear (Clear); Urine Color Colorless (Yellow); Urine Culture Reflex Order NOT NEEDED; Urine Glucose NEGATIVE (Negative); Urine Ketones NEGATIVE (Negative); Urine Microscopic Reflex YN ORDER UMIC; Urine Mucus Slight /HPF (None Seen); Urine Nitrite NEGATIVE (Negative); Urine Protein NEGATIVE (Negative); Urine RBC <5 /HPF (None Seen); Urine Urobilinogen Normal (Normal); Urine Yeast (Budding) Trace /HPF (None Seen); Urine pH 7.5 (5.0-7.0)
[2024-04-16] MEDS ORDERED: CEFTRIAXONE 1000 MG/VIAL ONE (15:44)
--- NOTE | 2024-04-16 15:48 | ER ---
Nurse's Notes [facility] Name: Gloria Modi Age: 28 yrs Sex: Female : 1995 Arrival Date: 04/16/2024 Time: 12:13 Bed 20 Private MD: Diagnosis: Low back pain;Strain of muscle, fascia and tendon of lower back;UTI/ Urinary tract infection, site not specified;Sciatica, left side Presentation: 04/16 12:30 Chief complaint: Patient states: she has tomlinson [place] , is having more tingling in her iw legs and is in pain, was seen at [facility] on the , they gave her steroids and a shot of Toradol. Coronavirus screen: At this time, the client does not indicate any symptoms associated with coronavirus-19. Ebola Screen: No symptoms or risks identified at this time. Initial Sepsis Screen: Does the patient meet any 2 criteria? No. Patient's initial sepsis screen is negative. Does the patient have a suspected source of infection? No. Patient's initial sepsis screen is negative. Risk Assessment: Do you want to hurt yourself or someone else? Patient reports no desire to harm self or others. 12:30 Method Of Arrival: Ambulatory iw 12:30 Acuity: NICO 3 iw 13:03 Onset of symptoms is unknown. me1 Triage Assessment: 13:03 General: Appears uncomfortable, slender, well groomed, well developed, Behavior is me1 calm, cooperative, appropriate for age. Pain: Complains of pain in back of left leg, back of right leg and back. Pain: Pain does not radiate. Pain currently is 10 out of 10 on a pain scale. Quality of pain is described as burning, shooting, numb, Pain began gradually, Is continuous. EENT: No signs and/or symptoms were reported regarding the EENT system. Neuro: Level of Consciousness is awake, alert, obeys commands, Oriented to person, place, time, situation, Appropriate for age. Cardiovascular: Patient's skin is warm and dry. Respiratory: Airway is patent Respiratory effort is even, unlabored, Respiratory pattern is regular, symmetrical. GI: No signs and/or symptoms were reported involving the gastrointestinal system. : No signs and/or symptoms were reported regarding the genitourinary system. Derm: Skin is intact, is healthy with good turgor, Skin is pink, warm \T\ dry. Musculoskeletal: Circulation, motion, and sensation intact. Range of motion: intact in all extremities, Reports pain in back of left leg, back of right leg and back. 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 - Infectious Disease History:: Denies. - Social history:: Smoking status: Patient denies any tobacco usage or history of. - Family history:: not pertinent. Screenin:13 [facility] ED Fall Risk Assessment (Adult) History of falling in the last 3 months, me1 including since admission No falls in past 3 months (0 pts) Confusion or Disorientation No (0 pts) Intoxicated or Sedated No (0 pts) Impaired Gait No (0 pts) Mobility Assist Device Used No (0 pt) Altered Elimination No (0 pt) Score/Fall Risk Level 0 - 2 = Low Risk Maintained a safe environment, Provided non-skid footwear, Hourly rounding (assess needs \T\ fall precautionary measures) done. Abuse screen: Denies threats or abuse. Nutritional screening: No deficits noted. Tuberculosis screening: No symptoms or risk factors identified. Assessment: 13:13 General: she has tomlinson [place] , is having more tingling in her legs and is in pain, me1 was seen at [facility] on the , they gave her steroids and a shot of Toradol.. Pain: Complains of pain in back of right leg and back of left leg and back and lumbar area Pain does not radiate. Pain currently is 10 out of 10 on a pain scale. Quality of pain is described as burning, shooting, numb, Pain began suddenly, Is continuous. Neuro: Level of Consciousness is awake, alert, obeys commands, Oriented to person, place, time, situation, Appropriate for age. Cardiovascular: Patient's skin is warm and dry. Respiratory: Airway is patent Respiratory effort is even, unlabored, Respiratory pattern is regular, symmetrical. GI: No signs and/or symptoms were reported involving the gastrointestinal system. : No signs and/or symptoms were reported regarding the genitourinary system. EENT: No signs and/or symptoms were reported regarding the EENT system. Derm: Skin is intact, is healthy with good turgor, Skin is pink, warm \T\ dry. Musculoskeletal: No signs and/or symptoms reported regarding the musculoskeletal system. Vital Signs: 12:30 BP 141 / 82; Pulse 90; Resp 16; Temp 98.4; Pulse Ox 96% on R/A; Weight 45.36 kg; Height iw 5 ft. 0 in. ; Pain 10/10; 13:00 BP 90 / 53; Pulse 79; Resp 16; Pulse Ox 100% ; Pain 10/10; me1 14:00 BP 92 / 58; Pulse 70; Resp 14; Pulse Ox 100% ; me1 15:00 BP 101 / 67; Pulse 59; Resp 16; Pulse Ox 99% ; me1 15:46 Pain 7/10; me1 15:47 Pain 7/10; me1 15:47 Pain 7/10; me1 15:47 Pain 7/10; me1 16:00 BP 101 / 74; Pulse 66; Resp 14; Temp 98.4; Pulse Ox 100% ; me1 16:04 Pain 4/10; me1 12:30 Body Mass Index 19.53 (45.36 kg, 152.4 cm) iw 12:30 Pain Scale: Adult iw 13:00 Pain Scale: Adult me1 15:46 Pain Scale: Adult me1 15:47 Pain Scale: Adult me1 15:47 Pain Scale: Adult me1 15:47 Pain Scale: Adult me1 16:04 Pain Scale: Adult me1 ED Course: 12:16 Patient arrived in ED. mr 12:16 Alden Lindsay MD is Attending Physician. oren 12:32 Triage completed. iw 12:33 Arm band placed on. iw 12:53 Arcelia Ricketts, HORTENCIA is Primary Nurse. me1 13:13 Patient has correct armband on for positive identification. Bed in low position. Call me1 light in reach. Side rails up X 1. Provided Education on: POC. Verbalized understand.. Client placed on continuous cardiac and pulse oximetry monitoring. NIBP monitoring applied. Pulse ox on. NIBP on. 13:13 No provider procedures requiring assistance completed. me1 14:34 Radiology exam delayed due to test not completed at this time. nj 14:45 Initial lab(s) drawn, by me, sent to lab. Inserted saline lock: 20 gauge in left wrist, zm using aseptic technique. Blood collected. Flushed with 10 mL NS. 14:46 CMP Sent. zm 14:46 CBC with Diff Sent. zm 14:47 CT Lumbar Spine Wo Con In Process Unspecified. EDMS 15:47 Ralph Powers MD is Referral Physician. oren 16:16 IV discontinued, intact, bleeding controlled, No redness/swelling at site. Pressure me1 dressing applied. Administered Medications: 15:03 Drug: NS 0.9% IV 1000 ml IV at 1000 ml once; to be given as a bolus over 60 minutes me1 Route: IV; Rate: 1000 ml; Site: left wrist; 15:58 Follow up: Response: No adverse reaction; IV Status: Completed infusion; IV Intake: me1 1000ml 15:04 Drug: Ketorolac IVP 15 mg IVP once Route: IVP; Site: left wrist; me1 15:47 Follow up: Pain 7/10 Adult; Response: No adverse reaction; Pain is decreased me1 15:04 Drug: Diazepam PO 5 mg PO once Route: PO; me1 15:47 Follow up: Pain 7/10 Adult; Response: No adverse reaction; Pain is decreased me1 15:04 Drug: fentaNYL (PF) IVP 50 mcg IVP once Route: IVP; Site: left wrist; me1 15:47 Follow up: Pain 7/10 Adult; Response: No adverse reaction; Pain is decreased me1 15:04 Drug: Ondansetron IVP 4 mg IVP once; over 2 minutes Route: IVP; Site: left wrist; me1 15:46 Follow up: Response: No adverse reaction; Nausea is decreased me1 15:04 Drug: Decadron - Dexamethasone IVP 10 mg IVP once Route: IVP; Site: left wrist; me1 15:46 Follow up: Pain 7/10 Adult; Response: No adverse reaction; Pain is decreased me1 15:46 Drug: Rocephin IV 1 grams IV at per protocol once; Given slow IV push per pharmacy me1 instructions Route: IV; Rate: per protocol; Site: left wrist; 15:58 Follow up: Response: No adverse reaction; IV Status: Completed infusion me1 15:58 Drug: fentaNYL (PF) IVP 25 mcg IVP once Route: IVP; Site: left wrist; me1 16:04 Follow up: Pain 4/10 Adult; Response: No adverse reaction; Pain is decreased me1 Medication: 13:13 VIS not applicable for this client. me1 Intake: 15:58 IV: 1000ml; Total: 1000ml. me1 Outcome: 15:48 Discharge ordered by MD. lott 16:16 Discharged to home ambulatory, with friend, me1 16:16 Condition: stable 16:16 Discharge instructions given to patient, Instructed on discharge instructions, follow up and referral plans. medication usage, Demonstrated understanding of instructions, follow-up care, medications, Prescriptions given X 4, 16:17 Patient left the ED. me1 Signatures: Dispatcher [employer] EDAlden Flanagan MD MD cha Rivera, Ashanti, Reg Reg mr Genet Merino RN RN iw Jordan, Nathan nj Martinez, Zaina zm Eddleman, Michelle RN RN me1 Corrections: (The following items were deleted from the chart) 13:04 12:30 Chief complaint: Patient states: she has tomlinson Pomeroy , is having more tingling me1 in her legs and is in pain, was seen at [facility] on the , they gave her steroids and a shot of Toradol, iw
--- NOTE | 2024-04-16 15:48 | EDPHYS ---
Physician Documentation [facility] Name: Gloria Modi Age: 28 yrs Sex: Female : 1995 Arrival Date: 04/16/2024 Time: 12:13 Bed 20 Private MD: ED Physician Alden Lindsay HPI: 04/16 15:43 This 28 yrs old Female presents to ER via Ambulatory with complaints of Back oren Pain. 15:43 The patient presents with pain that is acute, with no known mechanism of injury, that oren is chronic, with no known mechanism of injury. The symptoms are located in the low back. Onset: The symptoms/episode began/occurred 1 week(s) ago. The pain radiates to the left low back. Associated signs and symptoms: Pertinent positives: TO LEFT LEG. Modifying factors: The patient symptoms are alleviated by nothing, remaining still, the patient symptoms are aggravated by any movement, supine position. Severity of symptoms: At their worst the symptoms were moderate, in the emergency department the symptoms have improved, moderately. The patient has experienced similar episodes in the past, multiple times. 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 - Infectious Disease History:: Denies. - Social history:: Smoking status: Patient denies any tobacco usage or history of. - Family history:: not pertinent. ROS: 15:43 Constitutional: Negative for fever, chills, and weight loss, Eyes: Negative for injury, oren pain, redness, and discharge, ENT: Negative for injury, pain, and discharge, Neck: Negative for injury, pain, and swelling, Cardiovascular: Negative for chest pain, palpitations, and edema, Respiratory: Negative for shortness of breath, cough, wheezing, and pleuritic chest pain, Abdomen/GI: Negative for abdominal pain, nausea, vomiting, diarrhea, and constipation, : Negative for injury, bleeding, discharge, and swelling, MS/Extremity: Negative for injury and deformity, Skin: Negative for injury, rash, and discoloration, Neuro: Negative for headache, weakness, numbness, tingling, and seizure, Psych: Negative for depression, anxiety, suicide ideation, homicidal ideation, and hallucinations, Allergy/Immunology: Negative for hives, rash, and allergies, Endocrine: Negative for neck swelling, polydipsia, polyuria, polyphagia, and marked weight changes, Hematologic/Lymphatic: Negative for swollen nodes, abnormal bleeding, and unusual bruising, 15:43 Back: Positive for decreased range of motion, pain at rest, pain with movement, radiated pain, of the left low back, Exam: 15:43 Constitutional: This is a well developed, well nourished patient who is awake, alert, oren and in no acute distress. Head/Face: Normocephalic, atraumatic. Eyes: Pupils equal round and reactive to light, extra-ocular motions intact. Lids and lashes normal. Conjunctiva and sclera are non-icteric and not injected. Cornea within normal limits. Periorbital areas with no swelling, redness, or edema. ENT: Nares patent. No nasal discharge, no septal abnormalities noted. Tympanic membranes are normal and external auditory canals are clear. Oropharynx with no redness, swelling, or masses, exudates, or evidence of obstruction, uvula midline. Mucous membranes moist. Neck: Trachea midline, no thyromegaly or masses palpated, and no cervical lymphadenopathy. Supple, full range of motion without nuchal rigidity, or vertebral point tenderness. No Meningismus. Chest/axilla: Normal chest wall appearance and motion. Nontender with no deformity. No lesions are appreciated. Cardiovascular: Regular rate and rhythm with a normal S1 and S2. No gallops, murmurs, or rubs. Normal PMI, no JVD. No pulse deficits. Respiratory: Lungs have equal breath sounds bilaterally, clear to auscultation and percussion. No rales, rhonchi or wheezes noted. No increased work of breathing, no retractions or nasal flaring. Abdomen/GI: Soft, non-tender, with normal bowel sounds. No distension or tympany. No guarding or rebound. No evidence of tenderness throughout. Skin: Warm, dry with normal turgor. Normal color with no rashes, no lesions, and no evidence of cellulitis. MS/ Extremity: Pulses equal, no cyanosis. Neurovascular intact. Full, normal range of motion., bilateral aka Neuro: Awake and alert, GCS 15, oriented to person, place, time, and situation. Cranial nerves II-XII grossly intact. Motor strength 5/5 in all extremities. Sensory grossly intact. Cerebellar exam normal. Normal gait. Psych: Awake, alert, with orientation to person, place and time. Behavior, mood, and affect are within normal limits. 15:43 Back: pain, that is moderate, ROM is painful, with flexion, with extension, Vital Signs: 12:30 BP 141 / 82; Pulse 90; Resp 16; Temp 98.4; Pulse Ox 96% on R/A; Weight 45.36 kg; Height iw 5 ft. 0 in. ; Pain 10/10; 13:00 BP 90 / 53; Pulse 79; Resp 16; Pulse Ox 100% ; Pain 10/10; me1 14:00 BP 92 / 58; Pulse 70; Resp 14; Pulse Ox 100% ; me1 15:00 BP 101 / 67; Pulse 59; Resp 16; Pulse Ox 99% ; me1 15:46 Pain 7/10; me1 15:47 Pain 7/10; me1 15:47 Pain 7/10; me1 15:47 Pain 7/10; me1 16:00 BP 101 / 74; Pulse 66; Resp 14; Temp 98.4; Pulse Ox 100% ; me1 16:04 Pain 4/10; me1 12:30 Body Mass Index 19.53 (45.36 kg, 152.4 cm) iw 12:30 Pain Scale: Adult iw 13:00 Pain Scale: Adult me1 15:46 Pain Scale: Adult me1 15:47 Pain Scale: Adult me1 15:47 Pain Scale: Adult me1 15:47 Pain Scale: Adult me1 16:04 Pain Scale: Adult me1 MDM: 12:17 Medical Screening Exam initiated oren 15:48 Differential diagnosis: chronic back pain, Fatigue Fracture Joint Injury Osteoarthritis oren Osteomalacia Renal Infarction ruptured disc, spinal injury, sprain, Ureterolithiasis vertebral fracture. Data reviewed: vital signs, nurses notes, lab test result(s), radiologic studies, CT scan. Consideration of Admission/Observation Escalation of care including admission/observation considered. I considered the following discharge prescriptions or medication management in the emergency department Medications were administered in the Emergency Department. See MAR. Independent interpretation of the following test(s) in the Emergency Department CT Scan: My interpretation is CT LUMBAR. Test considered but Not performed: MRI: NO MRI SPINE. Historians other than the Patient: PT WELL INFORMED. Care significantly affected by the following chronic conditions: PTSD, BIPOLAR, CBP, GUILLAN BARRE . 04/16 14:09 Order name: CBC with Diff; Complete Time: 15:07 [facility] 04/16 14:09 Order name: CMP; Complete Time: 15:42 [facility] 04/16 14:09 Order name: Urinalysis w/ reflexes; Complete Time: 15:42 [facility] 04/16 14:09 Order name: PREGU; Complete Time: 15:42 [facility] 04/16 14:09 Order name: CT Lumbar Spine Wo Con; Complete Time: 15:07 [facility] Administered Medications: 15:03 Drug: NS 0.9% IV 1000 ml IV at 1000 ml once; to be given as a bolus over 60 minutes me1 Route: IV; Rate: 1000 ml; Site: left wrist; 15:58 Follow up: Response: No adverse reaction; IV Status: Completed infusion; IV Intake: me1 1000ml 15:04 Drug: Ketorolac IVP 15 mg IVP once Route: IVP; Site: left wrist; me1 15:47 Follow up: Pain 7/10 Adult; Response: No adverse reaction; Pain is decreased me1 15:04 Drug: Diazepam PO 5 mg PO once Route: PO; me1 15:47 Follow up: Pain 7/10 Adult; Response: No adverse reaction; Pain is decreased me1 15:04 Drug: fentaNYL (PF) IVP 50 mcg IVP once Route: IVP; Site: left wrist; me1 15:47 Follow up: Pain 7/10 Adult; Response: No adverse reaction; Pain is decreased me1 15:04 Drug: Ondansetron IVP 4 mg IVP once; over 2 minutes Route: IVP; Site: left wrist; me1 15:46 Follow up: Response: No adverse reaction; Nausea is decreased me1 15:04 Drug: Decadron - Dexamethasone IVP 10 mg IVP once Route: IVP; Site: left wrist; me1 15:46 Follow up: Pain 7/10 Adult; Response: No adverse reaction; Pain is decreased me1 15:46 Drug: Rocephin IV 1 grams IV at per protocol once; Given slow IV push per pharmacy me1 instructions Route: IV; Rate: per protocol; Site: left wrist; 15:58 Follow up: Response: No adverse reaction; IV Status: Completed infusion me1 15:58 Drug: fentaNYL (PF) IVP 25 mcg IVP once Route: IVP; Site: left wrist; me1 16:04 Follow up: Pain 4/10 Adult; Response: No adverse reaction; Pain is decreased me1 Disposition Summary: 04/16/24 15:48 Discharge Ordered Notes: Location: Home oren Problem: new oren Symptoms: have improved oren Condition: Stable oren Diagnosis - Low back pain oren - Strain of muscle, fascia and tendon of lower back oren - UTI/ Urinary tract infection, site not specified oren - Sciatica, left side oren Followup: oren - With: Private Physician - When: 2 - 3 days - Reason: Recheck today's complaints, Continuance of care, Re-evaluation by your physician Followup: oren - With: Ralph Powers MD - When: 2 - 3 days - Reason: Recheck today's complaints, Re-evaluation by your physician Discharge Instructions: - Discharge Summary Sheet oren - Acute Back Pain, Adult oren - Chronic Back Pain oren - Musculoskeletal Pain oren - Urinary Tract Infection, Adult oren - Urinary Tract Infection, Adult, [id number] oren - Chronic Back Pain, [id number] oren - Sciatica, [id number] oren Forms: - Medication Reconciliation Form oren - Antibiotic Education oren - Prescription Opioid Use oren - Patient Portal Instructions [facility] - Leadership Thank You Letter oren - Work release form me1 Prescriptions: - cefdinir 300 mg Oral capsule - take 1 capsule ORAL route every 12 hours; 10 capsule; Refills: 0, Product [facility] Selection Permitted - dexamethasone 4 mg Oral tablet - take 1 tablet ORAL route once daily; 3 tablet; Refills: 0, Product Selection oren Permitted - diclofenac sodium 25 mg Oral tablet, delayed release (enteric coated) - take 1 tablet ORAL route 3 times per day; 21 tablet; Refills: 0, Product [facility] Selection Permitted - methocarbamol 500 mg Oral tablet - take 1 tablet ORAL route 4 times per day for 7 days; 28 tablet; Refills: 0, oren Product Selection Permitted Signatures: Dispatcher [employer] Alden Cadena MD MD cha Williams, Irene, RN RN Eddleman, Arcelia, RN RN me1
[2024-04-16 17:00] VITALS: TEMP 98.4
[2024-04-16 17:17] VITALS: BP 101/74; O2SAT 100
== END 2024-04-16 16:17 | disposition home or self-care (01) ==
LOC: ER 12:13
DX: S39.012A Strain of muscle, fascia and tendon of lower back, initial encounter (principal); M54.42 Lumbago with sciatica, left side; N39.0 Urinary tract infection, site not specified; Z91.040 Latex allergy status; Z88.5 Allergy status to narcotic agent
CPT/HCPCS: 96361; 85025; 81001; 36415; 81025; 80053; 72131; 96375; 96374; 99284; J3010 ×2; J1100; J2405; J7030; J0696

== ENCOUNTER 2024-05-21 15:39 | Emergency (ER) | payer OTHER ==
[2024-05-21 16:00] LABS: Specific Gravity 1.029 (1.005-1.030)
--- NOTE | 2024-05-21 16:13 | EDPHYS ---
Physician Documentation [facility] Name: Gloria Modi Age: 28 yrs Sex: Female : 1995 Arrival Date: 05/21/2024 Time: 15:39 Bed IW9 Private MD: ED Physician Barrett Smallwood HPI: 05/21 15:47 This 28 yrs old Female presents to ER via Ambulatory with complaints of Fall Injury, ms3 test, Vaginal Bleeding. 15:47 28-year-old female with past medical history of Guillain-[place]una presents to the [facility] emergency department after falling down 5 steps at her house yesterday. Patient states she is having back and neck pain that she rates a 10/10. She denies any alleviating or inciting factors. Patient states she has also had vaginal bleeding for 12 days. Patient states although her tubes are tied she is concerned of the possibility of .. 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 - Infectious Disease History:: Denies. - Social history:: Smoking status: Reported history of juuling and/or vaping. ROS: 15:47 Constitutional: Negative for fever, and chills. Cardiovascular: Negative for chest ms3 pain, and palpitations. Respiratory: Negative for shortness of breath, cough, wheezing, and pleuritic chest pain, Abdomen/GI: Negative for abdominal pain, nausea, vomiting, diarrhea, and constipation, 15:47 Back: Positive for back pain, 15:47 : Positive for vaginal bleeding, Exam: 15:47 Constitutional: This is a well developed, well nourished patient who is awake, alert, ms3 and in no acute distress. Cardiovascular: Regular rate and rhythm with a normal S1 and S2. No gallops, murmurs, or rubs. Normal PMI, no JVD. No pulse deficits. Respiratory: Lungs have equal breath sounds bilaterally, clear to auscultation and percussion. No rales, rhonchi or wheezes noted. No increased work of breathing, no retractions or nasal flaring. Abdomen/GI: Soft, non-tender, with normal bowel sounds. No distension or tympany. No guarding or rebound. No evidence of tenderness throughout. Skin: Warm, dry with normal turgor. Normal color with no rashes, no lesions, and no evidence of cellulitis. MS/ Extremity: Pulses equal, no cyanosis. Neurovascular intact. Full, normal range of motion. 15:47 Back: pain, that is moderate, of the left trapezius, right trapezius, left low back, left mid back, right mid back and right low back, muscle spasm, is appreciated in the left low back and right low back, Vital Signs: 15:44 BP 117 / 86; Pulse 89; Resp 16; Temp 98.2; Pulse Ox 100% ; Weight 45.36 kg; Height 5 me1 ft. 0 in. ; Pain 10/10; 16:26 BP 114 / 79; Pulse 84; Resp 14; Temp 98.4; Pulse Ox 100% ; me1 15:44 Body Mass Index 19.53 (45.36 kg, 152.4 cm) me1 15:44 Pain Scale: Adult me1 MDM: 15:47 Differential diagnosis: dysfunctional uterine bleeding, ectopic , muscle spasm ms3 vs strain/sprain. 15:49 Medical Screening Exam initiated ms3 16:28 Data reviewed: vital signs, nurses notes, lab test result(s), and as a result, I will ms3 discharge patient. I considered the following discharge prescriptions or medication management in the emergency department Medications were administered in the Emergency Department. See MAR. Counseling: I had a detailed discussion with the patient and/or guardian regarding the historical points, exam findings, and any diagnostic results supporting the discharge/admit diagnosis, lab results, the need for outpatient follow up, to return to the emergency department if symptoms worsen or persist or if there are any questions or concerns that arise at home. Special discussion: I discussed with the patient/guardian in detail that at this point there is no indication for admission to the hospital. It is understood, however, that if the symptoms persist or worsen the patient needs to return immediately for re-evaluation. ED course: Discussed physical exam findings with the patient, discussed negative UPT with patient. On reevaluation patient is alert and orient x 4, no apparent distress, nontoxic-appearing, ambulatory in emerge department, speaking full sentences. Patient to follow-up with Dr. Reyes in 2 to 3 days. Patient understands and agrees with plan. All questions were answered. Return precautions discussed include worsening symptoms, or any other concerns.. 05/21 15:50 Order name: Test, Urine; Complete Time: 16:06 ms3 Administered Medications: 16:24 Drug: Ketorolac IM 15 mg IM once; AFTER NEGATIVE TEST Route: IM; Site: right me1 deltoid; 16:26 Follow up: Response: No adverse reaction; Pain is decreased me1 Disposition Summary: 05/21/24 16:13 Discharge Ordered Notes: Location: Home ms3 Condition: Stable ms3 Diagnosis - Fall (on) (from) other stairs and steps ms3 - Low back pain ms3 - Abnormal uterine and vaginal bleeding, unspecified ms3 Followup: ms3 - With: Dion Reyes DO - When: 2 - 3 days - Reason: Recheck today's complaints Discharge Instructions: - Discharge Summary Sheet ms3 - Acute Back Pain, Adult ms3 Forms: - Medication Reconciliation Form ms3 - Antibiotic Education ms3 - Prescription Opioid Use ms3 - Patient Portal Instructions ms3 - Leadership Thank You Letter ms3 Prescriptions: - Ibuprofen 600 mg Oral Tablet - take 1 tablet ORAL route every 6 hours As needed take with food; 30 tablet; ms3 Refills: 0, Product Selection Permitted - Cyclobenzaprine 5 mg Oral Tablet - take 1 tablet ORAL route 3 times per day As needed; 15 tablet; Refills: 0, ms3 Product Selection Permitted Signatures: Dispatcher [employer] Barrett Siddiqi DO DO ms3 Arcelia Ricketts, RN RN me1
--- NOTE | 2024-05-21 16:13 | ER ---
Nurse's Notes [facility] Name: Shereen Modi Age: 28 yrs Sex: Female : 1995 Arrival Date: 05/21/2024 Time: 15:39 Bed IW9 Private MD: Diagnosis: Fall (on) (from) other stairs and steps;Low back pain;Abnormal uterine and vaginal bleeding, unspecified Presentation: 05/21 15:44 Chief complaint: Patient states: fell down the stairs yesterday. c/o neck and back pain me1 01/22. Has been bleeding for 12 days. Coronavirus screen: At this time, the client does not indicate any symptoms associated with coronavirus-19. Ebola Screen: No symptoms or risks identified at this time. Initial Sepsis Screen: Does the patient meet any 2 criteria? No. Patient's initial sepsis screen is negative. Does the patient have a suspected source of infection? No. Patient's initial sepsis screen is negative. Risk Assessment: Do you want to hurt yourself or someone else? Patient reports no desire to harm self or others. Onset of symptoms was May 20, 2024. 15:44 Method Of Arrival: Ambulatory me1 15:44 Acuity: NICO 4 me1 Triage Assessment: 15:49 General: Appears comfortable, slender, well groomed, well developed, Behavior is calm, me1 cooperative, appropriate for age, Reports fell down 5 stairs yesterday and has neck and back pain today 01/22. Also started bleeding 12 days ago, concern for /miscarriage. Pain: Complains of pain in right low back and right mid back and left mid back and left low back and right trapezius and left trapezius Pain does not radiate. Pain currently is 10 out of 10 on a pain scale. Quality of pain is described as squeezing, Pain began 1 day ago. Is continuous. EENT: No signs and/or symptoms were reported regarding the EENT system. Neuro: Level of Consciousness is awake, alert, obeys commands, Oriented to person, place, time, situation, Appropriate for age. Cardiovascular: Patient's skin is warm and dry. Respiratory: Airway is patent Trachea midline Respiratory effort is even, unlabored, Respiratory pattern is regular, symmetrical. GI: No signs and/or symptoms were reported involving the gastrointestinal system. : Reports vaginal bleeding that is since 12 days ago. Derm: Skin is intact, is healthy with good turgor, Skin is pink, warm \T\ dry. Musculoskeletal: Reports pain in right low back and right mid back and left mid back and left low back and right trapezius and left trapezius. 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 - Infectious Disease History:: Denies. - Social history:: Smoking status: Reported history of juuling and/or vaping. Screenin:25 [facility] ED Fall Risk Assessment (Adult) History of falling in the last 3 months, me1 including since admission No falls in past 3 months (0 pts) Confusion or Disorientation No (0 pts) Intoxicated or Sedated No (0 pts) Impaired Gait No (0 pts) Mobility Assist Device Used No (0 pt) Altered Elimination No (0 pt) Score/Fall Risk Level 0 - 2 = Low Risk Maintained a safe environment, Provided non-skid footwear, Hourly rounding (assess needs \T\ fall precautionary measures) done. Abuse screen: Denies threats or abuse. Nutritional screening: No deficits noted. Tuberculosis screening: No symptoms or risk factors identified. Assessment: 16:25 General: See triage assessment. me1 Vital Signs: 15:44 BP 117 / 86; Pulse 89; Resp 16; Temp 98.2; Pulse Ox 100% ; Weight 45.36 kg; Height 5 me1 ft. 0 in. ; Pain 10/10; 16:26 BP 114 / 79; Pulse 84; Resp 14; Temp 98.4; Pulse Ox 100% ; me1 15:44 Body Mass Index 19.53 (45.36 kg, 152.4 cm) me1 15:44 Pain Scale: Adult me1 ED Course: 15:41 Patient arrived in ED. im 15:41 Barrett Smallwood DO is Attending Physician. ms3 15:47 Triage completed. me1 15:47 Arm band placed on Patient placed in an exam room. me1 15:55 Urine collected: clean catch specimen, shereen colored. me1 15:55 Test, Urine Sent. me1 16:12 Dion Reyes DO is Referral Physician. ms3 16:25 Patient has correct armband on for positive identification. Bed in low position. Call me1 light in reach. Side rails up X2. Provided Education on: POC. Verbalized understanding.. 16:25 No provider procedures requiring assistance completed. Patient did not have IV access me1 during this emergency room visit. 16:26 Arcelia Ricketts, RN is Primary Nurse. me1 Administered Medications: 16:24 Drug: Ketorolac IM 15 mg IM once; AFTER NEGATIVE TEST Route: IM; Site: right me1 deltoid; 16:26 Follow up: Response: No adverse reaction; Pain is decreased me1 Medication: 16:25 VIS not applicable for this client. me1 Outcome: 16:13 Discharge ordered by MD. ms3 16:32 Discharged to home ambulatory, me1 16:32 Condition: stable 16:32 Discharge instructions given to patient, Instructed on discharge instructions, follow up and referral plans. medication usage, Demonstrated understanding of instructions, follow-up care, medications, Prescriptions given X 2, 16:32 Patient left the ED. me1 Signatures: Barrett Smallwood DO DO ms3 Susan Gonzales Michelle, RN RN me1
[2024-05-21] MEDS ORDERED: KETOROLAC 30 MG/ML INJ ONE (16:16)
[2024-05-21 16:40] VITALS: O2SAT 100
[2024-05-21 16:42] VITALS: BP 114/79; TEMP 98.4
== END 2024-05-21 16:32 | disposition home or self-care (01) ==
LOC: ER 15:39
DX: M54.50 Low back pain, unspecified (principal); N93.9 Abnormal uterine and vaginal bleeding, unspecified; W10.8XXA Fall (on) (from) other stairs and steps, initial encounter
CPT/HCPCS: 81025; 96372; 99284